=== PATIENT | female | born 1935 | race Caucasian/White ===

== ENCOUNTER 2023-10-18 13:47 | Outpatient (OUT) | payer MEDICARE, SELFPAY ==
--- NOTE | 2023-10-18 13:58 | CA_ITS ---
Patient Name: RAMY BENAVIDES MR#: [id number] : 1935 Exam Date: 10/18/2023 Ordering Doctor: LEAH SAGE ECHOCARDIOGRAM REPORT PROCEDURE: CA ECHO DOPPLER COMPLETE INDICATIONS: Diastolic heart failure COMPARISON: None. DESCRIPTION: COMPLETE ECHOCARDIOGRAM Real-time transthoracic echocardiography with 2D, M-mode, spectral and color flow Doppler performed. QUALITY: Technical quality was good. LEFT VENTRICLE: Normal chamber size. Normal wall thickness. Global left ventricular systolic function is normal. LV EF: Visual estimation of left ventricular ejection fraction is 65%. DIASTOLIC: Normal diastolic function. ATRIAL SEPTUM: LEFT ATRIUM: Mild dilatation. RIGHT ATRIUM: Mild dilatation. RIGHT VENTRICLE: Mild dilatation. Normal right ventricular systolic function. Pacer wire present. TRICUSPID VALVE: Normal mobility and thickness. No stenosis with mild regurgitation. No evidence of pulmonary hypertension. RVSP 34 mmHg MITRAL VALVE: Normal mobility and thickness. No evidence of mitral valve stenosis. There is no mitral annular calcification. Mild mitral regurgitation. AORTIC VALVE: Normal trileaflet appearance. Mildly calcified aortic valve. Normal leaflet mobility. No evidence of aortic valve stenosis. Trivial aortic regurgitation. AORTIC ROOT: Normal diameter and appearance. PULMONIC VALVE: Normal thickness and mobility. No stenosis. No regurgitation. PERICARDIUM: No evidence of pericardial effusion. IVC: Collapses with inspirations. Normal size. PLEURA: CONCLUSION: 1. Normal left ventricular size and systolic function. LVEF is 65%. 2. Mildly dilated right ventricle with normal systolic function. 3. Mild biatrial dilatation. 4. Mild tricuspid and mitral regurgitation. 5. Normal right-sided pressures. Adult Echocardiography Procedure Report Left Ventricle LVEDD (3.7 - 5.6 cm): 4.10 cm LVESD (2.2 - 4.0 cm): 2.62 cm LVIVS thickness (0.6 - 1.2 cm): 1.04 cm LVPW thickness (0.5 - 1.0 cm): 0.89 cm e': 0.10 m/s E - e': 5.22 LVOT Max Gradient: 1.91 mm[Hg] LVOT Area (cm2): 0.69 m/s Peak Velocity (LVOT): 0.69 m/s Mean Velocity (LVOT): 0.46 m/s LVOT Diameter 1.92 cm Left Ventricular Ejection Fraction: 65 % Left Atrium LA Volume Index (2D A2C): 43.50 ml/m2 Left Atrium Systolic Dimension: 3.72 cm Mitral Valve MV E to A Ratio: 0.59 Mitral Valve A-Wave Peak Velocity: 0.85 m/s Mitral Valve E-Wave Peak Velocity: 0.50 m/s Right Ventricle RV Internal Diastolic Dimension: 2.99 cm Aorta AO Root Diam: 2.98 cm Aortic Valve AoV Area (Peak Lucho): 2.46 cm2, 2.46 cm2 AoV Area (VTI): 2.13 cm2, 2.13 cm2 Peak Velocity(Antegrade Flow): 0.82 m/s Peak Gradient(Antegrade Flow): 2.67 mm[Hg] Mean Velocity(Antegrade Flow): 0.57 m/s Mean Gradient(Antegrade Flow): 1.46 mm[Hg] Velocity Time Integral: 19.41 cm Tricuspid Valve Peak Velocity (Regurgitant Flow): 2.80 m/s, 2.36 m/s Pulmonic Valve Mean Gradient: 1.85 mm[Hg] Mean Velocity: 0.64 m/s Peak Velocity: 0.90 m/s, 0.97 m/s Peak Gradient: 3.80 mm[Hg], 3.22 mm[Hg] Right Atrium Right Atrium Systolic Pressure: 45.09 ml, 45.09 ml Dictated by: Kirby Mayes M.D. on 10/18/2023 at 18:48 Approved by: Kirby Mayes M.D. on 10/18/2023 at 18:52
== END 2023-10-18 13:48 | disposition home or self-care (01) ==
LOC: CARD 13:48
PROVIDERS: PCP Family Medicine; Visit Provider Internal Medicine Cardiovascular Disease
DX: I50.33 Acute on chronic diastolic (congestive) heart failure (principal)
CPT/HCPCS: 93306

== ENCOUNTER 2024-03-09 14:12 | Outpatient (OUT) | payer MEDICARE, SELFPAY ==
--- NOTE | 2024-03-09 14:14 | US_ITS ---
[address] [address] Patient Name: RAMY BENAVIDES MRN: [id number] date: 1935 Sex: F Assigned Patient Location: Current Patient Location: Accession/Order Number: [id number] Exam Date: 03/09/2024 14:15 Report Date: 03/10/2024 07:20 At the request of: SRIKANTH PALMER Procedure: US carotid duplex BI EXAMINATION: US carotid duplex BI HISTORY: Dizziness COMPARISON: No relevant comparison available. TECHNIQUE: Duplex Doppler ultrasound analysis of carotid and vertebral arteries. . Bilateral carotid arterial duplex examination was performed using B-mode, color flow and spectral analysis. Carotid stenosis is reported according to validated velocity parameters, similar to NASCET criteria. FINDINGS: RIGHT CAROTID ARTERY : Moderate amount of irregular calcified plaque within distal CCA, bulb, proximal ICA; 61% area reduction within distal CCA. Subclavian: 131.88 cm/s / 0 cm/s CCA: Prox: 86.54 cm/s / 13.60 cm/s Mid: 78.64 cm/s / 13.60 cm/s Distal: 72.73 cm/s / 13.60 cm/s BULB: 76.22 cm/s / 8.93 cm/s ICA: Prox: 73.64 cm/s / 7.64 cm/s Mid: 72.34 cm/s / 12.81 cm/s Distal: 83.84 cm/s / 11.15 cm/s ECA: 96.74 cm/s / 6.30 cm/s VERTEBRAL: 47.89 cm/s / 4.27 cm/s ICA/CCA ratio: 1.0 LEFT CAROTID ARTERY: Mild atherosclerotic plaque within distal CCA. Subclavian: 200.1 cm/s / 0 cm/s CCA: Prox: 102.29 cm/s / 13.60 cm/s Mid: 71.33 cm/s / 10.88 cm/s Distal: 77.93 cm/s / 10.88 cm/s BULB: 51.55 cm/s / 6.48 cm/s ICA: Prox: 49.35 cm/s / 7.58 cm/s Mid: 68.02 cm/s / 13.08 cm/s Distal: 80.11 cm/s / 16.37 cm/s ECA: 78.98 cm/s / 5.38 cm/s VERTEBRAL: 46.02 cm/s / 8.68 cm/s ICA/CCA ratio: 0.8 US/US carotid duplex BI IMPRESSION: 1. Moderate atherosclerotic disease within right common carotid artery, bulb, proximal internal carotid artery (61% area reduction within the distal CCA). 2. 0-49% flow stenosis within the right and left carotid arteries. Spectral Doppler US Thresholds Stenosis (%) PSV (cm/sec) VICA/VCCA 0-49 <150 <2.5 50-69 150-225 2.5-4.0 >70 >225 >4.0 Electronically authenticated by: AMY DENNISON Date: 03/10/2024 07:20
--- OUTSIDE RECORDS SUMMARY | 2024-03-09 14:15 | XMS_ITS | CCD ---
Author Organization [facility] Care Team Providers Care Student Activities Director Name Role Phone LEAH SAGE Admitting Unavailable ALONALEAH Chiu Attending Unavailable SELF, REFERRED Referring Unavailable SELF, REFERRED Primary Care Unavailable Masroor, Sindhu Admitting Unavailable Masroor, Sindhu Attending Unavailable FURLONGSEVEN Referring Unavailable FURLONG, SEVEN Primary Care Unavailable JAY, GIO Admitting Unavailable UNKNOWN, PHYSICIAN Primary Care Unavailable MOOSE AGUILA Referring Unavailable LITTLE HILL Attending Unavailable Masroor, Sindhu Admitting Unavailable Masroor, Sindhu Attending Unavailable VITOLONGSEVEN Referring Unavailable FURLONGSEVEN Primary Care Unavailable ALONA, LEAH H Admitting Unavailable FURLONG, DR SEVEN Dent Primary Care Unavailable ALONA, LEAH H Attending Unavailable FURLONG, DR SEVEN Dent Primary Care Unavailable FURLONG, DR SEVEN Dent Consulting Unavailable FURLONG, DR SEVEN Dent Attending Unavailable FURLONG, DR SEVEN Dent Admitting Unavailable ALONA, LEAH H Attending Unavailable FURLONG, DR SEVEN Dent Primary Care Unavailable ALONA, LEAH H Admitting Unavailable ALONA, LEAH H Consulting Unavailable MASROOR, SINDHU Admitting Unavailable MASROOR, SINDHU Attending Unavailable WEST, DR ABUNDIO Cantrell Consulting Unavailable FURLONG, DR SEVEN Dent Primary Care Unavailable MASROOR, SINDHU Consulting Unavailable ALONA, LEAH H Admitting Unavailable ZIEBER, DR AMY Jacome Consulting Unavailable FURLONG, DR SEVEN Dent Primary Care Unavailable ALONA, LEAH H Attending Unavailable ALONA, LEAH H Consulting Unavailable ALONA, LEAH H Admitting Unavailable FURLONG, DR SEVEN Dent Primary Care Unavailable ALONA, LEAH H Attending Unavailable MASROOR, SINDHU Consulting Unavailable MASROOR, SINDHU Attending Unavailable FURLONG, DR SEVEN Dent Primary Care Unavailable SINDHU CAN Admitting Unavailable Furlong DO, Seven Dent Primary Care Provider POCOS, ABUNDIO Cha Attending Unavailable POCOS, ABUNDIO Cha Attending Unavailable POCOS, ABUNDIO Cha Attending Unavailable RUSHER, ERNESTINA Mccarthy Attending Unavailable RUSHER, ERNESTINA Mccarthy Referring Unavailable ALONA, LEAH Attending Unavailable ALONA, LEAH Referring Unavailable ALONA, LEAH Referring Unavailable ALONA, LEAH Referring Unavailable BARAZIANGELIA Attending Unavailable KUNSNICKIE Referring Unavailable FURLONG, SEVEN Dent Primary Care Unavailable FURLONG, SEVEN Dent Referring Unavailable FURLONG, SEVEN Dent Primary Care Unavailable FURLONG, SEVEN Dent Referring Unavailable FURLONG, SEVEN G Primary Care Unavailable KUNSNICKIE Attending Unavailable FURLONG, SEVEN G Referring Unavailable FURLONG, SEVEN G Primary Care Unavailable FURLONG, SEVEN Dent Referring Unavailable FURLONG, SEVEN G Primary Care Unavailable FURLONG, SEVEN Dent Attending Unavailable FURLONG, SEVEN G Referring Unavailable FURLONG, SEVEN G Primary Care Unavailable FURLONG, SEVEN Dent Attending Unavailable FURLONG, SEVEN Dent Referring Unavailable FURLONG, SEVEN G Primary Care Unavailable FURLONG, SEVEN Dent Attending Unavailable FURLONG, SEVEN G Referring Unavailable FURLONG, SEVEN G Primary Care Unavailable FURLONG, SEVEN G Attending Unavailable FURLONG, SEVEN G Referring Unavailable FURLONG, SEVEN G Primary Care Unavailable FURLONG, SEVEN G Attending Unavailable FURLONG, SEVEN G Referring Unavailable FURLONG, SEVEN G Primary Care Unavailable Allergies Allergy Classification Reported Allergen(s) Allergy Type Date of Onset Reaction(s) Facility (5 sources) Penicillins; Translations: [PENICILLINS] Drug allergy (disorder) 5 [facility] (18 sources) Adhesive agent; Translations: [ADHESIVE] Propensity to adverse reactions to drug 2 [facility] (15 sources) Penicillins Propensity to adverse reactions to drug 8 Rash, Anaphylaxis [facility] (17 sources) Other; Translations: [OTHER] Propensity to adverse reactions 2 [facility] Work Phone: Medications Current Medications Medication Drug Class(es) Dates Sig (Normalized) Sig (Original) amLODIPine 10 mg oral tablet (16 sources) Dihydropyridine Calcium Channel Janna Start: 01-27-2024 amLODIPine (NORVASC) 10 mg tablet Indications: Primary hypertension TAKE 1 TABLET IN THE MORNING 90 tablet 1 01/27/2024 Active Start: 02-13-2023 End: 05-10-2023 take 1 tablet by mouth in the morning amLODIPine (NORVASC) 10 mg tablet Indications: Primary hypertension Take 1 tablet (10 mg total) by mouth in the morning. 90 tablet 1 05/10/2023 Active aspirin 81 mg delayed release oral tablet (15 sources) Platelet Aggregation Inhibitor, Nonsteroidal Anti-inflammatory Drug aspirin 81 mg 1 t ablet Active atorvastatin 80 mg oral tablet (15 sources) HMG-CoA Reductase Inhibitor Start: 08-15-2023 atorvastatin (LIPITOR) 80 mg tablet take 1 tablet daily 90 tablet 3 08/15/2023 Active Start: 07-23-2022 atorvastatin ( LIPITOR) 80 mg tablet TAKE 1 TABLET DAILY 90 tablet 3 07/23/2022 Active cholecalciferol, vitamin D3, (VITAMIN D3 ORAL) (15 sources) take 1 capsule by mouth once daily cholecalciferol, vitamin D3, (VITAMIN D3 ORAL) Take 1 capsule by mouth daily. Active take 1 capsule by mouth once anthony ly cholecalciferol, vitamin D3, (VITAMIN D3 ORAL) Take 1 capsule by mouth daily. 0 Active cyanocobalamin, vitamin B-12 , (VITAMIN B-12 ORAL) (15 sources) take 1 tablet by graeme th in the morning cyanocobalamin, vitamin B-12, (VITAMIN B-12 ORAL) Take 1 tablet by mouth in the morning. Active take 1 tablet by mouth in the mo rning cyanocobalamin, vitamin B-12, (VITAMIN B- 12 ORAL) Take 1 tablet by mouth in the morning. 0 Active famotidine 10 mg oral tablet (4 sources) Histamine-2 Receptor Antagonist take 1 tablet by mouth in the morning, then take 1 tablet by mouth at bedtime famotidine (PEPCID) 10 mg tablet Take 1 tablet (10 mg total) by mouth in the morning and 1 tablet (10 mg total) before bedtime. Active fluticasone propionate 0.05 mg/actuat metered dose nasal spray (15 sources) Corticosteroid take 2 spray(s) nasal route in the morning fluticasone propionate (FLONASE) 50 mcg/actuation nasal spray Administer 2 sprays into each nostril in the morning. Active furosemide 40 mg oral tablet (15 sources) Loop Diuretic Start: 09-11-19 furosemide (LASIX) 40 mg tablet take 1 tablet daily 90 tablet 1 09/11/2023 Active Start: 03-09-2023 take 1 tablet by graeme th once daily furosemide (LASIX) 40 mg tablet Take 1 tablet (40 mg total) by mouth daily. 90 tablet 1 03/09/2023 Active levothyroxine sodium 0.075 mg oral tablet (19 sources) l-Thyroxine Start: 02-08-2024 take 1 tablet by mouth in the morning levothyroxine (SYNTHROID, LEVOTHROID) 75 MCG tablet Take 1 tablet (75 mcg total) by mouth in the morning. 90 tablet 2 02/08/2024 Active Start: 11-29-2023 End: 02-08-2024 take 1 tablet by mouth in the morning levothyroxine (SYNTHROID, LEVOTHROID) 88 MCG tablet Indications: Acquired hypothyroidism Take 1 tablet (88 mcg total) by mouth in the morning. 30 tablet 1 11/29/2023 02/08/2024 Discontinued (Dose adjustment) Start: 02-02-2023 End: 07-26-2023 take 1 tablet by mouth in the morning levothyroxine (SYNTHROID, LEVOTHROID) 88 MCG tablet Indications: Acquired hypothyroidism take 1 tablet by mouth in the morning 90 tablet 1 07/26/2023 Active liothyronine sodium 0.005 mg oral tablet (9 sources) l-Triiodothyronine Start: 09-05-2023 liothyronin e (CYTOMEL) 5 MCG tablet take 1 tablet daily 90 tablet 2 09/05/2023 Active Start: 02-06-2023 End: 07-18-2023 liothyronine (CYTOMEL) 5 MCG tablet TAKE 1 TABLET DAILY 90 tablet 2 02/06/2023 07/18/2023 Discontinued (Discontinued by another clinician) magnesium oxide 400 mg oral tablet (15 sources) Start: 01-17-2022 take 1 tablet by mouth in the morning, then take 1 tablet by mouth at bedtime magnesium oxide (MAGOX) 400 mg tablet Take 1 tablet (400 mg total) by mouth in the morning and 1 tablet (400 mg total) before bedtime. 180 tablet 1 01/17/2022 Active meclizine hydrochloride 12.5 mg oral tablet (1 source) Antiemetic Start: 03-05-2024 take 1 tablet by mouth three times daily as needed for dizziness meclizine (ANTIVERT) 12.5 mg tablet Take 1 tablet (12.5 mg total) by mouth 3 (three) times a day as needed for dizziness. 30 tablet 1 03/05/2024 Active 24 hr metoprolol succinate 50 mg extended release oral tablet (15 sources) beta-Adrenergic Janna Start: 08-15-2023 metoprolol succinate XL (TOPROL XL) 50 mg 24 hr tablet take 1 tablet daily 90 tablet 3 08/15/2023 Active Start: 11-02-2022 metoprolol suc cinate XL (TOPROL XL) 50 mg 24 hr tablet TAKE 1 TABLET DAILY 90 tablet 3 11/02/2022 Active omeprazole 20 mg delayed release oral capsule (16 sources) Proton Pump Inhibitor Start: 02-07-2024 take 1 capsule by mouth once daily as needed for gastroesophageal reflux disease omeprazole (PriLOSEC) 20 mg capsule Take 1 capsule (20 mg total) by mouth daily as needed (heartburn). 02/07/2024 Active End: 02-07-2024 take 1 capsule by mouth every other day omeprazole (PriLOSEC) 20 mg capsule Take 1 capsule (20 mg total) by mouth every other day. 02/07/2024 Discontinued (Therapy completed) take 1 capsule by mo uth in the morning omeprazole (PriLOSEC) 20 mg capsule Take 1 capsule (20 mg total) by mouth in the morning. 0 Active microencapsulated potassium chloride 20 meq extended release oral tablet (15 sources) Start: 10-11-2023 KLOR-CON M20 2 0 mEq CR tablet take 1 tablet daily 90 tablet 1 10/11/2023 Active Start: 04-21-2023 potassium chlo ride (KLOR-CON M20) 20 MEQ CR tablet TAKE 1 TABLET DAILY 90 tablet 1 04/21/2023 Active pyridoxine HCl, vitamin B6, (VITAMIN B-6 ORAL) (15 sources) take 1 tablet by graeme th in the morning pyridoxine HCl, vitamin B6, (VITAMIN B-6 ORAL) Take 1 tablet by mouth in the morning. Active take 1 tablet by mouth in the mo rning pyridoxine HCl, vitamin B6, (VITAMIN B-6 ORAL) Take 1 tablet by mouth in the morning. 0 Active traZODone hydrochloride 50 mg oral tablet (16 sources) Serotonin Reuptake Inhibitor Start: 09-13-2023 traZODone (DESYREL) 50 mg tablet TAKE 1 TABLET NIGHTLY 90 tablet 1 09/13/2023 Active Start: 12-05-2022 End: 05-03-2023 traZODone (DESYREL) 50 mg ta blet TAKE 1 TABLET NIGHTLY 90 tablet 1 05/03/2023 Active 100 ml zoledronic acid 0.05 mg/ml injection (15 sources) Bisphosphonate Start: 03-04-2022 zoledronic aci d (RECLAST) IVPB 5 mg/100 mL in mannitol 5% and water (0.05 mg/mL premix) zolpidem tartrate 10 mg oral tablet (18 sources) gamma-Aminobutyric Acid-ergic Agonist Start: 01-02-2024 zolpidem (AMBIEN) 10 mg tablet Indications: Other insomnia TAKE 1 TABLET NIGHTLY NEEDED FOR SLEEP 30 tablet 1 01/02/2024 Active Start: 05-30-2023 End: 08-08-2023 take 1 tablet by mouth once daily as needed for sleep zolpidem (AMBIEN) 10 mg tablet Indications: Other insomnia Take 1 tablet (10 mg total) by mouth nightly as needed for sleep. 30 tablet 2 08/08/2023 Active Start: 04-03-2023 End: 05-21-2023 zolpidem (AMBIEN) 10 mg tabl et Indications: Persistent insomnia TAKE 1 TABLET NIGHTLY NEEDED FOR SLEEP 30 tablet 1 05/10/2023 05/21/2023 Discontinued (Formulary change) Completed/Discontinued Medications Medication Drug Class(es) Dates Sig (Normalized) Sig (Original) acetaminophen 500 mg oral tablet (4 sources) End: 07-17-2023 take 2 tablets by mouth every eight hours as needed acetaminophen (TYLENOL EXTRA STRENGTH) 500 mg tablet Take 2 tablets (1,000 mg total) by mouth every 8 (eight) hours as needed. 0 07/17/2023 Discontinued (Therapy completed) diclofenac sodium 0.01 mg/mg topical gel (4 sources) Nonsteroidal Anti-inflammatory Drug Start: 11-16-2022 End: 07-17-2023 diclofenac sodium (VOLTAREN) 1 % gel Apply 2 g topically in the morning and 2 g at noon and 2 g in the evening and 2 g before bedtime. 100 g 1 11/16/2022 07/17/2023 Discontinued (Therapy completed) doxepin 6 mg oral tablet (2 sources) Tricyclic Antidepressant Start: 05-21-2023 End: 07-17-2023 take 1 tablet by mouth once daily doxepin 6 mg tablet Indications: Persistent insomnia Take 1 tablet by mouth nightly. 30 tablet 1 05/21/2023 07/17/2023 Discontinued (Therapy completed) krill oil (4 sources) End: 07-17-2023 take 1 capsule by mouth in the morning hvhcu-fh-6-dha-epa -phospho-ast (KRILL OIL) [id number] mg capsule Take 1 capsule by mouth in the morning. 0 07/17/2023 Discontinued (Therapy completed) take 1 capsule by [facility] in the morning vtxrr-tb-2-oxi-wwz-lhkbxgc-ast (KRILL OI L) [id number] mg capsule Take 1 capsule by mouth in the morning. 0 Active linaclotide 0.072 mg oral capsule (3 sources) Guanylate Cyclase-C Agonist Start: 07-26-2023 End: 02-07-2024 take 1 capsule by mouth once daily before breakfast linaCLOtide (LINZESS) 72 mcg capsule Take 1 capsule (72 mcg total) by mouth every morning before breakfast. 90 capsule 1 07/26/2023 02/07/2024 Discontinued (Cost of medication) Problems Active Problems Problem Classification Problem Date Documented Date Episodic/Chronic Anxiety disorders (15 sources) Anxiety; Translations: [Anxiety disorder, unspecified] Onset: 01-11-2022 01-11-2022 Chronic Chronic kidney disease (15 sources) Chronic kidney disease stage 3; Translations: [Stage 3 chronic kidney disease] Onset: 05-19-2016 Resolved: 01-17-2022 01-17-2022 Chronic Chronic kidney disease (2 sources) Chronic kidney disease; Translations: [Chronic kidney disease, stage 3a] Onset: 01-30-2023 Conditions associated with dizziness or vertigo (4 sources) Dizziness; Translations: [Dizziness and giddiness] Onset: 03-05-2024 03-05-2024 Episodic Congestive heart failure; nonhypertensive (2 sources) Acute on chronic diastolic (congestive) heart failure; Translations: [Acute on chronic diastolic (congestive) heart failure] Onset: 09-26-2023 Chronic Coronary atherosclerosis and other heart disease (15 sources) Coronary arteriosclerosis; Translations: [Atherosclerotic heart disease of [place] coronary artery without angina pectoris] Onset: 08-12-2021 01-17-2022 Chronic Disorders of lipid metabolism (18 sources) Hyperlipidemia, unspecified; Translations: [Hypercholesterolemia] Onset: 07-30-2020 01-17-2022 Chronic Diverticulosis and diverticulitis (15 sources) Diverticular disease; Translations: [Diverticulosis of intestine, part unspecified, without perforation or abscess without bleeding] Onset: 01-11-2022 01-11-2022 Chronic Esophageal disorders (17 sources) Gastroesophageal reflux disease; Translations: [Gastro-esophageal reflux disease without esophagitis] Onset: 01-11-2022 01-11-2022 Chronic Essential hypertension (20 sources) Essential (primary) hypertension; Translations: [Essential hypertension] Onset: 07-30-2020 Chronic Hypertension with complications and secondary hypertension (20 sources) Renovascular hypertension; 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] Onset: 07-12-2021 01-17-2022 Chronic Osteoarthritis (20 sources) Osteoarthritis of left knee joint; Translations: [Unilateral primary osteoarthritis, left knee] Onset: 02-14-2019 04-26-2023 Chronic Other connective tissue disease (15 sources) Artificial knee joint present; Translations: [Presence of unspecified artificial knee joint] Onset: 01-17-2022 01-17-2022 Chronic Other ear and sense organ disorders (15 sources) Hearing loss; Translations: [Unspecified hearing loss, unspecified ear] Onset: 10-15-2019 01-11-2022 Chronic Residual codes; unclassified (15 sources) Obstructive sleep apnea syndrome; Translations: [Obstructive sleep apnea (adult) (pediatric)] Onset: 01-11-2022 01-11-2022 Chronic Residual codes; unclassified (2 sources) Insomnia; Translations: [Other insomnia] 07-19-2023 Chronic Residual codes; unclassified (2 sources) Other insomnia; Translations: [Other insomnia] Onset: 08-08-2023 Chronic Screening and history of mental health and substance abuse codes (2 sources) Patient encounter status; Translations: [Encounter for screening for depression] 07-27-2023 Episodic Spondylosis; intervertebral disc disorders; other back problems (15 sources) Degeneration of lumbar intervertebral disc; Translations: [Other intervertebral disc degeneration, lumbar region] Onset: 01-11-2022 01-17-2022 Chronic Thyroid disorders (20 sources) Hypothyroidism; Translations: [Hypothyroidism, unspecified] Onset: 07-30-2020 01-17-2022 Chronic Unclassified (15 sources) Mass of body structure; Translations: [Mass] Onset: 12-09-2021 07-19-2022 Unclassified (1 source) Cold Like Symptoms Onset: 02-07-2024 Unclassified (1 source) medicare annual wellness Onset: 07-25-2023 Past or Other Problems Problem Classification Problem Date Documented Date Episodic/Chronic Complication of device; implant or graft (4 sources) Displacement of cardiac electrode, initial encounter; Translations: [DISPLACEMENT CARD ELECTRODE INITIAL] Onset: 09-21-2021 Episodic Conduction disorders (20 sources) Atrioventricular block, complete; Translations: [Complete atrioventricular block] Onset: 09-08-2022 Resolved: 04-26-2023 Chronic Diabetes mellitus without complication (20 sources) Impaired glucose tolerance; Translations: [Impaired glucose tolerance (oral)] Onset: 01-11-2022 01-11-2022 Episodic Fluid and electrolyte disorders (15 sources) Hypokalemia; Translations: [Hypokalemia] Onset: 11-05-2015 01-11-2022 Episodic Mood disorders (15 sources) Mood disorders Onset: 04-26-2023 Resolved: 03-05-2024 04-26-2023 Nonspecific chest pain (1 source) Chest pain, unspecified; Translations: [CHEST PAIN UNSPECIFIED] Onset: 12-22-2021 Episodic Other aftercare (2 sources) Encounter for therapeutic drug level monitoring; Translations: [Encounter for therapeutic drug level monitoring] Onset: 08-08-2023 Episodic Other bone disease and musculoskeletal deformities (15 sources) Osteopenia; Translations: [Other specified disorders of bone density and structure, unspecified site] Onset: 06-23-2017 01-11-2022 Episodic Other circulatory disease (15 sources) History of heart block; Translations: [Personal history of other diseases of the circulatory system] Onset: 01-17-2022 01-17-2022 Episodic Other ear and sense organ disorders (15 sources) Tinnitus; Translations: [Tinnitus, unspecified ear] Onset: 10-27-2022 10-27-2022 Episodic Other fractures (15 sources) Closed fracture thoracic vertebra, wedge; Translations: [Wedge compression fracture of unspecified thoracic vertebra, initial encounter for closed fracture] Onset: 01-31-2020 01-11-2022 Episodic Other hematologic conditions (15 sources) Erythrocytosis; Translations: [Secondary polycythemia] Onset: 09-12-2019 01-11-2022 Episodic Other lower respiratory disease (4 sources) Dyspnea, unspecified; Translations: [DYSPNEA UNSPECIFIED] Onset: 11-19-2021 Episodic Other nervous system disorders (1 source) Other acute postprocedural pain; Translations: [OTHER ACUTE POSTPROCEDURAL PAIN] Onset: 12-22-2021 Episodic Other non-epithelial cancer of skin (15 sources) Basal cell carcinoma of skin; Translations: [Basal cell carcinoma of skin, unspecified] Onset: 06-22-2017 01-11-2022 Episodic Other non-traumatic joint disorders (15 sources) Pain in left knee; Translations: [Pain in joint, lower leg] Onset: 02-09-2023 04-26-2023 Episodic Other nutritional; endocrine; and metabolic disorders (15 sources) Obesity; Translations: [Obesity, unspecified] Onset: 01-11-2022 Resolved: 07-19-2022 07-19-2022 Chronic Other nutritional; endocrine; and metabolic disorders (17 sources) Overweight; Translations: [Overweight] Onset: 01-30-2023 01-30-2023 Episodic Other nutritional; endocrine; and metabolic disorders (1 source) Overweight; Translations: [Overweight] Onset: 01-30-2023 Episodic Other screening for suspected conditions (not mental disorders or infectious disease) (1 source) Other abnormal and inconclusive findings on diagnostic imaging of breast; Translations: [OTH ABN INCONCL FIND DX IMAG BREAST] Onset: 12-22-2021 Episodic Other skin disorders (4 sources) Localized swelling, mass and lump, trunk; Translations: [LOCALIZD SWELLING MASS AND LUMP TRUNK] Onset: 12-15-2021 Episodic Other upper respiratory infections (19 sources) Nasal discharge; Translations: [Postnasal drip] Onset: 10-27-2022 10-27-2022 Episodic Residual codes; unclassified (19 sources) Persistent insomnia; Translations: [Insomnia, unspecified] Onset: 01-11-2022 01-11-2022 Episodic Residual codes; unclassified (1 source) Insomnia, unspecified; Translations: [Insomnia, unspecified] Onset: 01-11-2022 Episodic Results Test Name Value Interpretation Reference Range Facility BASIC METABOLIC PANLon 02-06 Anion gap [Moles/Vol] 13 mmol/L Normal 5-15 [facility] Comment on above: Performed By: #### C BC, BMP, 69977-3, 61283-7, 2776-, 3084-1, THYR, HA1C, 2731-8, 81341-7 #### [facility] ([id number]) [address] [place] [address] Calcium [Mass/Vol] 10.0 mg/dL Normal 8.5-10.5 [facility] Comment on above: Performed By: #### C BC, BMP, 29101-0, 46432-8, 2776-, 3084-1, THYR, HA1C, 2731-8, 45353-6 #### [facility] ([id number]) [address], [address] [place] [address] Chloride [Moles/Vol] 97 mmol/L Low 98-109 [facility] Comment on above: Performed By: #### C BC, BMP, 45976-7, 19650-2, 7-, 3084-1, THYR, HA1C, 2731-8, 17858-6 #### [facility] ([id number]) [address], [address] [place] [address] CO2 [Moles/Vol] 30 mmol/L Normal 22-32 [facility] Comment on above: Performed By: #### C BC, BMP, 49118-9, 36153-0, 2777-1, 3084-1, THYR, HA1C, 2731-8, 04783-7 #### [facility] ([id number]) [address], [address] [place] [address] Creatinine [Mass/Vol] 0.96 mg/dL Normal 0.40-1.00 [facility] Comment on above: Result Comment: METH OD TRACEABLE TO IDMS STANDARD Performed By: #### C BC, BMP, 11480-7, 33310-2, 2776-1, 3084-1, THYR, HA1C, 2731-8, 12683-3 #### [facility] ([id number]) [address] [place] [address] GFR/1.73 sq M.predicted [place] g non-blacks MDRD (S/P/Bld) [Vol rate/Area] 58 mL/min/{1.73_m2} Low >59 [facility] Comment on above: Result Comment: Reported eGFR is based on the CKD-EPI 2020 equation that does not use a race coefficient. Performed By: #### C BC, BMP, 22250-6, 95120-8, 2776-, 3084-1, THYR, HA1C, 2731-8, 95306-6 #### [facility] ([id number]) [address] [place] [address] Glucose [Mass/Vol] 111 mg/dL High 65-99 [facility] Comment on above: Performed By: #### C BC, BMP, 47418-5, 24005-3, 2776-1, 3084-1, THYR, HA1C, 2731-8, 20544-8 #### [facility] ([id number]) [address] [place] [address] Potassium [Moles/Vol] 3.8 mmol/L Normal 3.5-5.0 [facility] Comment on above: Performed By: #### C BC, BMP, 07419-6, 72845-5, 2777-1, 3084-1, THYR, HA1C, 2731-8, 03322-0 #### [facility] ([id number]) [address], [address] [place] [address] Sodium [Moles/Vol] 140 mmol/L Normal 134-146 [facility] Comment on above: Performed By: #### C BC, BMP, 91985-6, 75691-7, 2777-1, 3084-1, THYR, HA1C, 2731-8, 99307-9 #### [facility] ([id number]) [address] [place] [address] Urea nitrogen [Mass/Vol] 20 mg/dL Normal 5-27 [facility] Comment on above: Performed By: #### C BC, BMP, 70968-0, 60361-6, 7-1, 3084-1, THYR, HA1C, 2731-8, 22113-9 #### [facility] ([id number]) [address] [place] [address] COMPLETE BLOOD COUNTon 02-06 Erythrocyte distribution width (RBC) [Ratio] 14.1 % Normal 11.5-15.0 [facility] Comment on above: Performed By: #### C BC, BMP, 90851-6, 89779-4, 7-1, 3084-1, THYR, HA1C, 2731-8, 99608-3 #### [facility] ([id number]) [address] [place] [address] Hematocrit (Bld) [Volume fraction] 43.6 % Normal 35-47 [facility] Comment on above: Performed By: #### C BC, BMP, 40082-4, 03808-0, 2777-1, 3084-1, THYR, HA1C, 2731-8, 39383-1 #### [facility] ([id number]) [address] [place] [address] Hemoglobin (Bld) [Mass/Vol] 14.9 g/dL Normal 11.7-15. 5 [facility] Comment on above: Performed By: #### C BC, BMP, 42438-4, 61418-8, 7-1, 3084-1, THYR, HA1C, 2731-8, 52557-6 #### [facility] ([id number]) [address] [place] [address] MCH (RBC) [Entitic mass] 29.6 pg Normal 27-34 [facility] Comment on above: Performed By: #### C BC, BMP, 82325-4, 25667-2, 7-1, 3084-1, THYR, HA1C, 2731-8, 93127-1 #### [facility] ([id number]) [address] [place] [address] MCHC (RBC) [Mass/Vol] 34.2 g/dL Normal 32-36 [facility] Comment on above: Performed By: #### C BC, BMP, 57876-4, 34394-4, 7-, 3084-1, THYR, HA1C, 2731-8, 58800-7 #### [facility] ([id number]) [address] [place] [address] MCV (RBC) [Entitic vol] 87 fL Normal 80-100 [facility] Comment on above: Performed By: #### C BC, BMP, 37907-4, 30885-1, 2777-1, 3084-1, THYR, HA1C, 2731-8, 51472-5 #### [facility] ([id number]) [address] [place] [address] Platelet mean volume (Bld) [Entitic vol] 10.0 fL Normal 7-12 [facility] Comment on above: Performed By: #### C BC, BMP, 95990-5, 50214-6, 2777-1, 3084-1, THYR, HA1C, 2731-8, 29336-3 #### [facility] ([id number]) [address] [address] [place] [address] Platelets (Bld) [#/Vol] 307 10*3/uL Normal 150-450 [facility] Comment on above: Performed By: #### C BC, BMP, 05323-3, 44508-3, 2777-1, 3084-1, THYR, HA1C, 2731-8, 93055-0 #### [facility] ([id number]) [address] [address] [place] [address] RBC COUNT 5.04 X10E12/L Normal 3.80-5.20 [facility] Comment on above: Performed By: #### C BC, BMP, 37794-2, 28070-8, 2777-1, 3084-1, THYR, HA1C, 2731-8, 43064-2 #### [facility] ([id number]) [address] [address] [place] [address] WBC (Bld) [#/Vol] 9.2 10*3/uL Normal 4.0-11.0 [facility] Comment on above: Performed By: #### C BC, BMP, 31177-0, 64906-3, 7-1, 3084-1, THYR, HA1C, 2731-8, 64395-1 #### [facility] ([id number]) [address] [address] [place] [address] HGB A1C (GLYCO-HGB)on 2023 Glucose [Mass/Vol] 114 mg/dL Normal [facility] Comment on above: Performed By: #### B MP, THYR #### [facility] ([id number]) [address] [address] [place] [address] HbA1c (Bld) [Mass fraction] 5.6 % Normal 4.4-5.6 [facility] Comment on above: Result Comment: NOTE ADA Guidelines Result HgbA1c Normal : less than 5.7 % Prediabetes : 5.7 % to 6.4 % Diabetes : > 6.4 % Use with caution in patients with abnormal hemoglobin variants as the half-life of red blood cells and in vivo glycation rates are affected. Performed By: #### Josh MP, THYR #### [facility] ([id number]) [address] [place] [address] Lipid 1996 panelon 4 Cholesterol [Mass/Vol] 132 mg/dL Low 150-200 [facility] Comment on above: Performed By: #### C BC, BMP, 10291-9, 08171-0, 7-1, 3084-1, THYR, HA1C, 2731-8, 79874-1 #### [facility] ([id number]) [address] [place] [address] Cholesterol in HDL [Mass/Vol] 57 mg/dL Normal >39 [facility] Comment on above: Result Comment: HDL <40 mg/dL - High Risk HDL > or = 40mg/dL- Desirable HDL >60 mg/dL - Negative Risk Performed By: #### C BC, BMP, 11998-5, 85670-6, 2777-1, 3084-1, THYR, HA1C, 2731-8, 48817-1 #### [facility] ([id number]) [address] [place] [address] Cholesterol in LDL [Mass/Vol] 60 mg/dL Normal <130 [facility] Comment on above: Result Comment: LDL <100 mg/dL - Desirable LDL >160 mg/dL - High Risk Performed By: #### C BC, BMP, 86262-8, 60673-9, 2777-1, 3084-1, THYR, HA1C, 2731-8, 28085-5 #### [facility] ([id number]) [address] [place] [address] Cholesterol in VLDL [Mass/Vol] 15 mg/dL Normal 0-30 [facility] Comment on above: Performed By: #### C BC, BMP, 40373-5, 77245-8, 2777-1, 3084-1, THYR, HA1C, 2731-8, 87772-4 #### [facility] ([id number]) [address] [place] [address] CHOLESTEROL:HDL 2.3 Normal 1.0-5.0 [facility] Comment on above: Performed By: #### C BC, BMP, 98687-6, 82069-4, 2777-1, 3084-1, THYR, HA1C, 2731-8, 94685-9 #### [facility] ([id number]) [address] [place] [address] Triglyceride [Mass/Vol] 74 mg/dL Normal 27-150 [facility] Comment on above: Performed By: #### C BC, BMP, 98593-0, 50414-0, 2777-1, 3084-1, THYR, HA1C, 2731-8, 36305-7 #### [facility] ([id number]) [address] [place] [address] MAGNESIUMon 02-07-2024 Magnesium [Mass/Vol] 2.3 mg/dL Normal 1.8-2.6 [facility] Comment on above: Performed By: #### C BC, BMP, 78279-7, 09245-0, 7-1, 3084-1, THYR, HA1C, 2730-8, 67108-4 #### [facility] ([id number]) [address] [place] [address] PHOSPHORUSon 02-07-2024 Phosphate [Mass/Vol] 4.4 mg/dL Normal 2.4-4.9 [facility] Comment on above: Performed By: #### C BC, BMP, 36207-8, 39971-7, 2776-, 308-1, THYR, HA1C, 2730-8, 68968-9 #### [facility] ([id number]) [address] [facility], [address] [place] [address] POCT Influenza A/Influenza B /SARS-COV-2 Veritoron 02-07-2024 External Poct Influenza A Antigen Negative [facility] External Poct Influenza B Antigen Negative [facility] SARS-CoV-2 (COVID-19) Ag IA.rapid Ql (Resp) Negative [facility] Parathyrin.intact [Mass/Vol] on 02-07-2024 PTH INTACT 37 pg/mL Normal 12-88 [facility] Comment on above: Performed By: #### B MP, THYR #### [facility] ([id number]) [address] [facility] [facility], [address] [place] [address] THYROID PROFILEon 02-07-2024 Free T4 [Mass/Vol] 1.85 ng/dL High 0.61-1.60 [facility] Comment on above: Performed By: #### C BC, BMP, 47242-5, 77857-2, 2776-1, 308-1, THYR, HA1C, 2730-8, 65643-9 #### [facility] ([id number]) [address], [address] [place] [address] TSH 0.26 uIU/mL Low 0.49-4.67 [facility] Comment on above: Performed By: #### C BC, BMP, 22073-3, 15787-7, 2777-1, 3084-1, THYR, HA1C, 2731-8, 71497-7 #### [facility] ([id number]) [address], [address] [place] [address] URIC ACIDon 02-07-2024 Urate [Mass/Vol] 5.6 mg/dL Normal 2.6-7.2 [facility] Comment on above: Performed By: #### C BC, BMP, 99363-8, 98511-3, 2777-1, 3084-1, THYR, HA1C, 2731-8, 43138-3 #### [facility] ([id number]) [address] [place] [address] Vitamin D+Metabolites [Mass/ Vol]on 02-07-2024 VITAMIN D 25 HYD TOT >120.0 High 30-100 [facility] Comment on above: Result Comment: Vitamin D status 25 [place] Vitamin D Deficiency <20 ng/mL Insufficiency 20-29 ng/mL Sufficiency 30-100 ng/mL Toxicity >100 ng/mL NOTE: A pediatric reference range has not been established by the media services coordinator of this kit. The [employer] recommends a Vitamin D level of = or >20ng/mL in infants and children. Performed By: #### B MP, THYR #### [facility] ([id number]) [address] [facility], [address] [place] [address] Office Visiton 09-26-2023 Follow-up visit [id number] Ramy Madrigal 1935 F Date Provider Department Center 09/26/2023 LEAH BADILLO CA[facility] Family History Problem Relation Age of Onset Diabetes Sister Family Status - Relation Status Age at Sister Level of Service:12208 IN OFFICE/OUTPATIENT ESTABLISHED LOW MDM 20 MIN Normal [facility] Drug Screen, Urineon 024 Amphetamines Screen method >1000 ng/mL Ql (U) Negative Negative^N [facility] Comment on above: AMPH/METH screening cut off = 1000 ng/mL Barbiturates Screen Ql (U) Negative N egative^N [facility] Comment on above: Barbiturates screeni ng cut off value = 200 ng/mL Benzodiazepines Ql (U) Negative Negat lucia^[facility] Comment on above: Benzodiazepines scre ening cut off value = 200 ng/mL Cocaine Ql (U) Negative Negative^N [facility] Comment on above: Cocaine screening cu t off value = 300 ng/mL Methadone Screen Ql (U) Negative Nega tive^N [facility] Comment on above: Methadone screening cut off value = 300 ng/mL. Methylenedioxymethamphetamin e Screen Ql (U) Negative Negative^N [facility] Comment on above: Ecstasy screening cu t off value = 500 ng/mL This report is intended for use in clinical monitoring or management of patients. Opiates Screen Ql (U) Negative Negati ve^N [facility] Comment on above: Opiates screening cu t off value = 300 ng/mL NOTE: This test is used for the detection of codeine, hydrocodone (>1000 ng/mL), morphine and hydromorphone (>900 ng/mL) in urine. oxyCODONE Ql (U) Negative Negative^N [facility] Comment on above: Oxycodone screening cut off value = 300 ng/mL NOTE: This test is used for the detection of oxycodone and oxymorphone in urine. Phencyclidine Screen method >25 ng/mL Ql (U) Negative Negative^N [facility] Comment on above: Phencyclidine screen ing cut off value = 25 ng/mL Tetrahydrocannabinol Screen method >50 ng/mL Ql (U) Negative Negative^[facility] Comment on above: Cannabinoids/THC scr eening cut off value = 50 ng/mL [facility] DRUG SCREEN, URINEon 024 AMPHETAMINE/METHAMP Negative Normal NEG [facility] Comment on above: Result Comment: AMPH /METH screening cut off = 1000 ng/mL Performed By: #### D MONTEMAYOR #### [facility] ([id number]) [address] [place] [address] BARBITURATES Negative Normal NEG [facility] Comment on above: Result Comment: Meeta iturates screening cut off value = 200 ng/mL Performed By: #### D MONTEMAYOR #### [facility] ([id number]) [address] [place] [address] BENZODIAZEPINES Negative Normal NEG [facility] Comment on above: Result Comment: Jalen odiazepines screening cut off value = 200 ng/mL Performed By: #### D MONTEMAYOR #### [facility] ([id number]) [address] [place] [address] CANNABINOIDS Negative Normal NEG [facility] Comment on above: Result Comment: Nadira abinoids/THC screening cut off value = 50 ng/mL Performed By: #### D MONTEMAYOR #### [facility] ([id number]) [address] [place] [address] COCAINE METABOLITE Negative Normal NEG [facility] Comment on above: Result Comment: Coca ine screening cut off value = 300 ng/mL Performed By: #### D MONTEMAYOR #### [facility] ([id number]) [address] [place] [address] ECSTASY Negative Normal NEG [facility] Comment on above: Result Comment: Ecst asy screening cut off value = 500 ng/mL This report is intended for use in clinical monitoring or management of patients. Performed By: #### D MONTEMAYOR #### [facility] ([id number]) [address] [place] [address] METHADONE Negative Normal NEG [facility] Comment on above: Result Comment: Meth adone screening cut off value = 300 ng/mL. Performed By: #### D MONTEMAYOR #### [facility] ([id number]) [address] [place] [address] OPIATES Negative Normal NEG [facility] Comment on above: Result Comment: Opia marie screening cut off value = 300 ng/mL NOTE: This test is used for the detection of codeine, hydrocodone (>1000 ng/mL), morphine and hydromorphone (>900 ng/mL) in urine. Performed By: #### D MONTEMAYOR #### [facility] ([id number]) [address] [place] [address] OXYCODONE Negative Normal NEG [facility] Comment on above: Result Comment: Oxyc odone screening cut off value = 300 ng/mL NOTE: This test is used for the detection of oxycodone and oxymorphone in urine. Performed By: #### D MONTEMAYOR #### [facility] ([id number]) [address] [place] [address] PHENCYCLIDINE Negative Normal NEG [facility] Comment on above: Result Comment: Phen cyclidine screening cut off value = 25 ng/mL Performed By: #### D MONTEMAYOR #### [facility] ([id number]) [address] [place] [address] BASIC METABOLIC PANLon 07-16 Anion gap [Moles/Vol] 12 mmol/L Normal 5-15 Pro [facility] Comment on above: Performed By: #### B JOSETTE THYR #### [facility] ([id number]) [address] [place] [address] Calcium [Mass/Vol] 9.8 mg/dL Normal 8.5-10.5 [facility] Comment on above: Performed By: #### B JOSETTE, THYR #### [facility] ([id number]) [address] [place] [address] Chloride [Moles/Vol] 99 mmol/L Normal 98-109 [facility] Comment on above: Performed By: #### B JOSETTE, THYR #### [facility] ([id number]) [address] [place] [address] CO2 [Moles/Vol] 29 mmol/L Normal 22-32 [facility] Comment on above: Performed By: #### B JOSETTE, THYR #### [facility] ([id number]) [address] [place] [address] Creatinine [Mass/Vol] 0.87 mg/dL Normal 0.40-1.00 [facility] Comment on above: Result Comment: METH OD TRACEABLE TO IDMS STANDARD Performed By: #### B JOSETTE, THYR #### [facility] ([id number]) [address] [facility] [address] [place] [address] GFR/1.73 sq M.predicted chadwick g non-blacks MDRD (S/P/Bld) [Vol rate/Area] 65 mL/min/{1.73_m2} Normal >59 [facility] Comment on above: Result Comment: Reported eGFR is based on the CKD-EPI 2020 equation that does not use a race coefficient. Performed By: #### Josh FINCH, THYR #### [facility] ([id number]) [address] [place] [address] Glucose [Mass/Vol] 110 mg/dL High 65-99 [facility] Comment on above: Performed By: #### B JOSETTE, THYR #### [facility] ([id number]) [address] [address] [place] [address] Potassium [Moles/Vol] 4.0 mmol/L Normal 3.5-5.0 [facility] Comment on above: Performed By: #### B JOSETTE, THYR #### [facility] ([id number]) [address] [place] [address] Sodium [Moles/Vol] 140 mmol/L Normal 134-146 [facility] Comment on above: Performed By: #### B JOSETTE, THYR #### [facility] ([id number]) [address] [place] [address] Urea nitrogen [Mass/Vol] 21 mg/dL Normal 5-27 [facility] Comment on above: Performed By: #### B JOSETTE, THYR #### [facility] ([id number]) [address] [place] [address] Basic Metabolic Panelon 07-06 Anion gap [Moles/Vol] 12 mmol/L 5 - 15 mmol/L [facility] Calcium [Mass/Vol] 9.8 mg/dL 8.5 - 10. 5 mg/dL [facility] Chloride [Moles/Vol] 99 mmol/L 98 - 10 9 mmol/L [facility] CO2 [Moles/Vol] 29 mmol/L 22 - 32 mmol/L [facility] Creatinine [Mass/Vol] 0.87 mg/dL 0.40 - 1.00 mg/dL [facility] Comment on above: METHOD TRACEABLE TO IDNY STANDARD eGFR (CKD-EPI)non-race dependent 65 - PINF [facility] Comment on above: Reported eGFR is based on the CKD-EPI 2020 equation that does not use a race coefficient. Glucose [Mass/Vol] 110 mg/dL High 65 - 99 mg/dL [facility] Interpretation and review of laboratory results Abnormal [facility] Potassium [Moles/Vol] 4.0 mmol/L 3.5 - 5.0 mmol/L [facility] Sodium [Moles/Vol] 140 mmol/L 134 - 146 mmol/L [facility] Urea nitrogen [Mass/Vol] 21 mg/dL 5 - 27 mg/dL [facility] THYROID PROFILEon 07-17-2023 Free T4 [Mass/Vol] 2.62 ng/dL High 0.61-1.60 [facility] Comment on above: Performed By: #### B JOSETTE, THYR #### [facility] ([id number]) [address] [place] [address] TSH 0.01 uIU/mL Low 0.49-4.67 [facility] Comment on above: Performed By: #### B MP, THYR #### [facility] ([id number]) [address] [place] [address] Thyroid profile includes TSH FT4on 07-17-2023 Free T4 [Mass/Vol] 2.62 ng/dL High 0.61 - 1.60 ng/dL [facility] Interpretation and review of laboratory results Abnormal [facility] TSH Qn 0.01 m[IU]/L Low [facility] Office Visiton 03-03-2023 Follow-up visit [id number] Ramy Madrigal 1935 F Date Provider Department Center 03/03/2023 ANGELIA CHO [facility] Family History Problem Relation Age of Onset Diabetes Sister Family Status - Relation Status Age at Sister Level of Service:05575 IN OFFICE/OUTPATIENT ESTABLISHED MOD MDM 30-39 MIN Normal [facility] ECHOCARDIO M/2D COMPLETEon 0 09-08-2022 ECHOCARDIO M/2D COMPLETE Patient: RAMY MADRIGAL Exam Date: 09/08/2022 : 1935 Gender:F Ordering : LEAH Bertin ALONA Admission #: [id number] Family : Order #: [id number] CLICK HERE TO VIEW EXAM ECHOCARDIOGRAM REPORT PROCEDURE: CARDIO PULMONARY ECHOCARDIO M/2D COMP INDICATIONS: Complete AV block COMPARISON: None. DESCRIPTION: COMPLETE ECHOCARDIOGRAM Real-time transthoracic echocardiography with 2D, M-mode, spectral and color flow Doppler performed. QUALITY: Technical quality was good. LEFT VENTRICLE: Normal chamber size. Normal left ventricular wall thickness. LV EF: Global left ventricular systolic function is normal. Calculated left ventricular ejection fraction is 61%. Abnormal septal motion; likely related to paced rhythm. DIASTOLIC: Normal diastolic function. ATRIAL SEPTUM: Inadequately seen. LEFT ATRIUM: Mild dilatation. RIGHT ATRIUM: Mild dilatation. RIGHT VENTRICLE: Appears enlarged. Decreased right ventricular systolic function. Pacer wire present. TRICUSPID VALVE: Normal mobility and thickness. Mild regurgitation. No evidence of pulmonary hypertension. RVSP 33mmHg MITRAL VALVE: Normal mobility and thickness. No evidence of mitral valve stenosis. Mild mitral annular calcification. Trivial mitral regurgitation. AORTIC VALVE: Normal trileaflet appearance. Thickened aortic valve. Normal leaflet mobility. No evidence of aortic valve stenosis. Trivial aortic regurgitation. AORTIC ROOT: Normal diameter and appearance. PULMONIC VALVE: Normal thickness and mobility. No stenosis. No regurgitation. PERICARDIUM: Anterior free space; trivial effusion versus fat pad. IVC: Collapses with inspirations. Normal size. CONCLUSION: Global left ventricular systolic function is normal; visually estimated ejection fraction is 60 to 65%. Abnormal septal motion. Biatrial enlargement. The right ventricle appears enlarged with reduced systolic function. Pacer wire is seen. Mild tricuspid regurgitation. Anterior free space; trivial effusion versus fat pad. Adult Echocardiography Procedure Report Left Ventricle LVEDD (3.7 - 5.6 cm): 4.67 cm LVESD (2.2 - 4.0 cm): 2.95 cm LVIVS thickness (0.6 - 1.2 cm): 0.88 cm LVPW thickness (0.5 - 1.0 cm): 0.64 cm e': 0.12 m/s E - e': 4.51 LVOT Max Gradient: 3.32 mm[Hg] Peak Velocity (LVOT): 0.91 m/s Mean Velocity (LVOT): 0.64 m/s LVOT Diameter 1.96 cm Left Ventricular Ejection Fraction: 66.76 %, 66.76 % Left Atrium LA Volume Index (2D A2C): 57.23 ml, 57.23 ml Left Atrium Systolic Dimension: 4.13 cm Mitral Valve MV E to A Ratio: 0.65 Mitral Valve A-Wave Peak Velocity: 0.83 m/s Mitral Valve E-Wave Peak Velocity: 0.54 m/s Right Ventricle RV Internal Diastolic Dimension: 3.48 cm Aorta AO Root Diam: 3.15 cm Aortic Valve AoV Area (Peak Lucho): 1.87 cm2, 1.87 cm2 AoV Area (VTI): 1.67 cm2, 1.67 cm2 Peak Velocity(Antegrade Flow): 1.46 m/s Peak Gradient(Antegrade Flow): 8.52 mm[Hg] Mean Velocity(Antegrade Flow): 1.04 m/s Mean Gradient(Antegrade Flow): 4.94 mm[Hg] Velocity Time Integral: 39.15 cm Tricuspid Valve Peak Velocity (Regurgitant Flow): 2.15 m/s, 1.97 m/s, 2.73 m/s Peak Velocity: 0.56 m/s Pulmonic Valve Mean Gradient: 1.24 mm[Hg] Mean Velocity: 0.50 m/s Peak Velocity: 0.81 m/s, 0.95 m/s Peak Gradient: 2.62 mm[Hg], 3.58 mm[Hg] Right Atrium Right Atrium Systolic Pressure: 27.61 ml, 27.61 ml Dictated by: Anushka Amaya M.D. on 09/09/2022 at 09:24 Approved by: Anushka Amaya M.D. on 09/09/2022 at 09:29 Normal [facility] LIPID PROFILEon 01-11-2022 CHOL-HDL RATIO NORM SEE BELOW Normal [facility] Comment on above: Result Comment: 3.3 - 4.4 LOW RISK 4.4 - 7.1 AVERAGE RISK 7.1 - 11.0 MODERATE RISK >11.0 HIGH RISK Performed By: #### L IPID, CMP #### [facility] [address] [address] [address] Cody Nicholson Cholesterol [Mass/Vol] 133 mg/dL Normal <=200 Th [facility] Comment on above: Performed By: #### L IPID, CMP #### [facility] [address] [address] [address] Cody Nicholson Cholesterol in HDL [Mass/Vol] 61 mg/dL Critically high 4 0-60 [facility] Comment on above: Performed By: #### L IPID, CMP #### [facility] [address] [address] [address] Cody Nicholson Cholesterol in LDL [Mass/Vol] 62.8 mg/dL Normal [facility] Comment on above: Performed By: #### L IPID, CMP #### [facility] [address] [address] [address] Cody Nicholson Cholesterol.total/Cholestero l in HDL [Mass ratio] 2.2 {ratio} Normal [facility] Comment on above: Performed By: #### L IPID, CMP #### [facility] [address] [address] [address] Cody Nicholson HDL NORMAL > or = 60 mg/dl - LOW CARDIOVASCULAR RISK <40 mg/dl - HIGH CARDIOVASCULAR RISK Normal [facility] Comment on above: Performed By: #### L IPID, CMP #### [facility] [address] [address] [address] Cody Nicholson LDL CALC NORMAL SEE BELOW Normal [facility] Comment on above: Result Comment: <100 mg/dl OPTIMAL 100 - 129 mg/dl NEAR OR ABOVE OPTIMAL 130 - 159 mg/dl BORDERLINE HIGH 160 - 189 mg/dl HIGH >190 mg/dl VERY HIGH Performed By: #### L IPID, CMP #### [facility] [address] [address] [address] Cody Nicholson Triglyceride [Mass/Vol] 46 mg/dL Normal <=150 T [facility] Comment on above: Performed By: #### L IPID, CMP #### [facility] [address] [address] [address] Cody Nicholson VLDL CALC 9.2 mg/dL Normal [facility] Comment on above: Performed By: #### L IPID, CMP #### [facility] [address] [address] [address] Cody Nicholson PROF 14(COMP METB)on 022 Albumin [Mass/Vol] 4.0 g/dL Normal 3.4-5.0 [facility] Comment on above: Performed By: #### L IPID, CMP #### [facility] [address] [address] [address] Cody Nicholson Albumin/Globulin [Mass ratio] 1.2 {ratio} Normal [facility] Comment on above: Performed By: #### L IPID, CMP #### [facility] [address] [address] [address] Cody Nicholson ALP [Catalytic activity/Vol] 86 U/L Normal 46-116 [facility] Comment on above: Performed By: #### L IPID, CMP #### [facility] [address] [address] [address] Cody Nicholson ALT [Catalytic activity/Vol] 22 U/L Normal 14-59 [facility] Comment on above: Performed By: #### L IPID, CMP #### [facility] [address] [address] [address] Cody Nicholson Anion gap [Moles/Vol] 7.3 mmol/L Normal [facility] Comment on above: Performed By: #### L IPID, CMP #### [facility] [address] [address] [address] Cody Nicholson AST [Catalytic activity/Vol] 19 U/L Normal 15-37 [facility] Comment on above: Performed By: #### L IPID, CMP #### [facility] [address] [place] [address] Dr. Cody Nicholson Bilirubin [Mass/Vol] 0.6 mg/dL Normal 0.2-1.0 [facility] Comment on above: Performed By: #### L IPID, CMP #### [facility] [address] [address] [address] Cody Nicholson Calcium [Mass/Vol] 9.2 mg/dL Normal 8.5-10.1 [facility] Comment on above: Performed By: #### L IPID, CMP #### [facility] [address] [address] [address] Cody Nicholson Chloride [Moles/Vol] 101 mmol/L Normal 98-107 [facility] Comment on above: Performed By: #### L IPID, CMP #### [facility] [address] [address] [address] Cody Nicholson CO2 [Moles/Vol] 32.3 mmol/L Critically high 21.0-32.0 [facility] Comment on above: Performed By: #### L IPID, CMP #### [facility] [address] [address] [address] Cody Nicholson Creatinine [Mass/Vol] 0.88 mg/dL Normal 0.55-1.02 [facility] Comment on above: Performed By: #### L IPID, CMP #### [facility] [address] [address] [address] Cody Nicholson EGFR-AF ESTONIAN >60 Normal >=60 [facility] Comment on above: Performed By: #### L IPID, CMP #### [facility] [address] [address] [address] Cody Nicholson EGFR-NON AF ESTONIAN >60 Normal >=60 [facility] Comment on above: Performed By: #### L IPID, CMP #### [facility] [address] [address] [address] Cody Nicholson Globulin (S) [Mass/Vol] 3.3 g/dL Normal [facility] Comment on above: Performed By: #### L IPID, CMP #### [facility] [address] [address] [address] Cody Nicholson Glucose [Mass/Vol] 145 mg/dL Critically high 74-106 [facility] Comment on above: Performed By: #### L IPID, CMP #### [facility] [address] [address] [address] Cody Nicholson Potassium [Moles/Vol] 3.6 mmol/L Normal 3.5-5.1 [facility] Comment on above: Performed By: #### L IPID, CMP #### [facility] [address] [address] [address] Cody Nicholson Protein [Mass/Vol] 7.3 g/dL Normal 6.4-8.2 [facility] Comment on above: Performed By: #### L IPID, CMP #### [facility] [address] [address] [address] Cody Nicholson Sodium [Moles/Vol] 137 mmol/L Normal 136-145 [facility] Comment on above: Performed By: #### L IPID, CMP #### [facility] [address] [address] [address] Cody Nicholson Urea nitrogen [Mass/Vol] 22.0 mg/dL Critically high 7.0-18 .0 [facility] Comment on above: Performed By: #### L IPID, CMP #### [facility] [address] [address] [address] Cody Nicholson Urea nitrogen/Creatinine [Mass ratio] 25.0 mg/mg Normal [facility] Comment on above: Performed By: #### L IPID, CMP #### [facility] [address] [place], [place] [address] Dr. Cody Nicholson US BREAST LEFT LIMITEDon US BREAST LEFT LIMITED Patient: RAMY MADRIGAL Exam Date: 12/15/2021 : 1935 Gender:F Ordering : DR. SINDHU CAN M.D. Admission #: [id number] Family : Order #: [id number] CLICK HERE TO VIEW EXAM RADIOLOGY REPORT PROCEDURE: ULTRASOUND BREAST LEFT LIMITED COMPARISON: MG MAMM SCREEN [place] W CAD, 09/20/2016. MG MAMM [place] SCRN W CAD DIG, 08/21/2013. INDICATIONS: Mass of trunk TECHNIQUE: Breast ultrasound was performed, with evaluation focusing only on specific areas of concern. FINDINGS: Ultrasound left breast 4 o'clock position was performed demonstrating linear area of hyper echogenicity with acoustic shadowing along the patient's surgical scar. No focal mass is observed. RECOMMENDATIONS: Ultrasound findings consistent a surgical scar PLEASE NOTE: A NORMAL ULTRASOUND EXAMINATION DOES NOT EXCLUDE THE POSSIBILITY OF BREAST CANCER. A CLINICALLY SUSPICIOUS PALPABLE LUMP SHOULD BE BIOPSIED. Dictated by: Abundio Menon MD on 12/15/2021 at 11:36 Approved by: Abundio Menon MD on 12/15/2021 at 11:38 Normal [facility] BASIC METABOLIC PANELon 07-2 Calcium [Mass/Vol] 8.0 mg/dL Low 8.6-10.3 [facility] Comment on above: Order Comment: No: D o not add to previous draw Performed By: #### 6 2586 #### [facility] [address] [place] [address], [facility] Chloride [Moles/Vol] 108 mmol/L High 98-107 [facility] Comment on above: Order Comment: No: D o not add to previous draw Performed By: #### 6 2586 #### [facility] [address] [place] [address], [place] CO2 [Moles/Vol] 25 mmol/L Normal 21-31 [facility] Comment on above: Order Comment: No: D o not add to previous draw Performed By: #### 6 2586 #### [facility] [address] [place] [address], [place] Creatinine [Mass/Vol] 0.75 mg/dL Normal 0.60-1.20 [facility] Comment on above: Order Comment: No: D o not add to previous draw Performed By: #### 6 2586 #### [facility] [address] [place] [address], [place] GFR/1.73 sq M.predicted chadwick g non-blacks MDRD (S/P/Bld) [Vol rate/Area] mL/min/{1.73_m2} Normal >60 [facility] Comment on above: Order Comment: No: D o not add to previous draw Result Comment: [facility]'s estimated glomerular filtration rate (eGFR) will no longer include consideration of race in its calculation. The National Kidney Foundation's eGFR Task Force developed new recommendations for the estimation of the glomerular filtration rate in the [place] They recommend immediate implementation of the new equation refit without the race variable in all laboratories because the calculation does not include race. In addition to not including race in the calculation and reporting, it included diversity in its development, and has acceptable performance characteristics and potential consequences that do not disproportionately affect any one group of individuals. Performed By: #### 6 2586 #### [facility] [address] [place] [address], [place] Glucose [Mass/Vol] 95 mg/dL Normal 70-100 [facility] Comment on above: Order Comment: No: D o not add to previous draw Performed By: #### 6 2586 #### [facility] [address] [place] [address], [place] Potassium [Moles/Vol] 4.2 mmol/L Normal 3.5-5.1 [facility] Comment on above: Order Comment: No: D o not add to previous draw Performed By: #### 6 2586 #### [facility] [address] [place] [address], [facility] Sodium [Moles/Vol] 139 mmol/L Normal 136-145 [facility] Comment on above: Order Comment: No: D o not add to previous draw Performed By: #### 6 2586 #### [facility] [address] [place] [address], [facility] Urea nitrogen [Mass/Vol] 13 mg/dL Normal 7-25 [facility] Comment on above: Order Comment: No: D o not add to previous draw Performed By: #### 6 2586 #### [facility] [address] [place] [address], [facility] CBC COMPLETE BLOOD COUNTon 12-01-2021 Erythrocyte distribution width (RBC) [Ratio] 13.2 % Normal 11.5-15.0 [facility] Comment on above: Order Comment: No: D o not add to previous draw Performed By: #### 8 [id number] #### [facility] [address] [place] [address], [facility] Hematocrit (Bld) [Volume fraction] 32.8 % Low 36.0-45.0 [facility] Comment on above: Order Comment: No: D o not add to previous draw Performed By: #### 8 [id number] #### [facility] [address] [place] [address], [facility] Hemoglobin (Bld) [Mass/Vol] 10.8 g/dL Low 12.0-15. 0 [facility] Comment on above: Order Comment: No: D o not add to previous draw Performed By: #### 8 [id number] #### [facility] [address] [place] [address], [place] MCH (RBC) [Entitic mass] 28.6 pg Normal 27.0-33.0 [facility] Comment on above: Order Comment: No: D o not add to previous draw Performed By: #### 8 [id number] #### [facility] [address] [place] [address], [facility] MCHC (RBC) [Mass/Vol] 32.9 g/dL Normal 32.0-35.0 [facility] Comment on above: Order Comment: No: D o not add to previous draw Performed By: #### 8 [id number] #### [facility] [address] [place] [address], [facility] MCV (RBC) [Entitic vol] 87.0 fL Normal 82.0-98.0 [facility] Comment on above: Order Comment: No: D o not add to previous draw Performed By: #### 8 [id number] #### [facility] [address] [facility] [place] [address], [facility] Nucleated RBC/100 WBC (Bld) [Ratio] 0 % Normal 0-0 [facility] Comment on above: Order Comment: No: D o not add to previous draw Performed By: #### 8 [id number] #### [facility] [address] [place] [address], [facility] PLAT CNT 196 10*3/uL Normal 150-400 [facility] Comment on above: Order Comment: No: D o not add to previous draw Performed By: #### 8 [id number] #### [facility] [address] [place] [address], [facility] RBC (Bld) [#/Vol] 3.77 10*6/uL Low 3.80-5.00 [facility] Comment on above: Order Comment: No: D o not add to previous draw Performed By: #### 8 [id number] #### [facility] [address] [place] [address], [facility] WBC (Bld) [#/Vol] 11.34 10*3/uL High 4.00-10.60 [facility] Comment on above: Order Comment: No: D o not add to previous draw Performed By: #### 8 [id number] #### [facility] [address] [place] [address], [facility] MAGNESIUM BLOODon 12-01-2021 Magnesium [Mass/Vol] 1.8 mg/dL Low 1.9-2.7 [facility] Comment on above: Order Comment: No: D o not add to previous draw Performed By: #### 6 2586 #### [facility] [address] Operative Reporton 2 Operative Report MR#: [id number] I [facility] Pt. 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 OPERATION: 1. Left mini thoracotomy and repair of right ventricular perforation. 2. Removal of right ventricular lead. 3. Excisional debridement of pacemaker pocket. 4. Insertion of right ventricular lead. MANAGER DRUG: Amos Millard. ANESTHESIA: General with double-lumen endotracheal intubation. ANESTHESIOLOGIST: Liz Abad M.D. INDICATIONS: This is an 86-year-old female, who had undergone recently pacemaker placement and was pacer dependent. The patient was noted to have increasing chest pain as well as increasing thresholds of the lead. Workup included CT scan that showed the lead to have perforated ventricle. DESCRIPTION OF PROCEDURE: The patient was brought to the operating room and prepped and draped in the routine fashion with the left chest elevated about 20 degrees. Incision was made in the left chest in the 6th intercostal space. Pericardium was opened. Right ventricular apex was visualized. The lead could be palpated from outside and indeed it had perforated, but there was no bleeding actively around it. A 4-0 Prolene pledgeted suture was placed in the right ventricle, going from 1 side of the lead to the other under the lead. With that suture in place, we then proceeded in the left upper chest where a pacemaker pocket was reopened. The device was delivered from the pocket. Capsule was excised. The leads were descent angled and then we proceeded with placement of a new right ventricular lead. Left subclavian vein was entered with a needle and a guidewire was inserted under fluoroscopy. Guidewire kept going into the right subclavian vein rather than turning down, but eventually with a little bit of maneuvering, we were able to get the wire down into the right atrium. A long sheath was inserted. With the help of this, the ventricular lead was inserted into the right ventricle. With a couple of attempts, we were able to find a good spot where the right ventricular lead had excellent impedance and pacing threshold of less than 1 V. The lead was screwed in place and then we quickly connected this new lead to the original pacemaker device, disconnecting the old ventricular lead. The patient tolerated this procedure well and then the old lead was removed. The screw was withdrawn and then the lead was gently pulled out. Hemostasis was secured at the lead exit site. The pacemaker was then inserted into the pocket and secured with a stitch. Under fluoroscopy, we checked with a 10 V pacing and there was no pacing of the phrenic nerve. Wound was copiously irrigated with antibiotic saline. At the right ventricular apex, we tied the suture down around the perforated ventricle, but there was no significant bleeding from that site, just some subcu hematoma around that site and then a Ciro drain was placed in the left chest. Chest was closed with #2 Pericostal, #1 Vicryl for fascia, 2-0 Vicryl, and 4-0 Monocryl stitches. The chest pocket was closed in layers using 2-0 Vicryl and 4-0 Monocryl stitches. Dermabond was applied. The patient was extubated and taken to the recovery room in a stable condition. Electronically Signed by: Sindhu Can MD 12/19/2021 03:08 P Sindhu Can MD Date Dict: 11/30/2021/12:04 P/Sindhu Can MD Date Trans: 11/30/2021 10:23 P/roya CHILDERS_JN:[id number] cc: Seven Palmer M.D. [facility] [address] [place] [id number] Normal [facility] POC GLUCOSE LABon 12-01-2021 Glucose [Mass/Vol] 100 mg/dL Normal 70-100 [facility] Comment on above: Performed By: #### 8 [id number] #### [facility] [address] [place], [place] [id number] [place] [address] Glucose [Mass/Vol] 87 mg/dL Normal 70-100 [facility] Comment on above: Performed By: #### 8 [id number] ####[facility] [place] [address], [facility] PORTABLE CHEST 1 VIEWon 11-06 PORTABLE CHEST 1 VIEW [facility] Department of Radiology [address] [place] [address] Patient Name: RAMY MADRIGAL : 1935 Sex: F Age: Race: White Pt. Location: [address] [place] [address] Patient Status: I Ordered Date: 12/01/2021 5:00:00 AM Completed Date: 12/01/2021 06:58 AM Requesting Provider: LOGAN KIRKLAND Attending Provider: SINDHU CAN Report Copy To: Signs & Symptoms: Atelectasis History: Comments: Atelectasis Exam: PORTABLE CHEST 1 VIEW PORTABLE CHEST 1 VIEW 12/01/2021 6:58 AM CLINICAL INDICATIONS: Atelectasis TECHNOLOGIST COMMENTS: Atelectasis QUESTION FOR THE RADIOLOGIST: Atelectasis PROTOCOL: AP(PA) view was obtained. COMPARISON: 11/30/2021 FINDINGS: Decreased lung volumes. Increased small right effusion. Stable small left effusion and left basilar atelectasis. Stable pulmonary vasculature. IMPRESSION: Slight increased right pleural effusion. Electronically signed: Edgar Jenkins. Transcribed by: [email or web address], User Resident: Electronically Signed by: EDGAR JENKINS @ 12/01/2021 07:25 AM Normal [facility] Comment on above: Order Comment: Check Pacemaker/AICD Lead Position BASIC METABOLIC PANELon 11-06 Calcium [Mass/Vol] 7.8 mg/dL Low 8.6-10.3 [facility] Comment on above: Order Comment: No: D o not add to previous draw Performed By: #### 0 0071 ####[facility] [place] [address], [place] Chloride [Moles/Vol] 105 mmol/L Normal 98-107 [facility] Comment on above: Order Comment: No: D o not add to previous draw Performed By: #### 0 0071 ####[facility] [place] [address], [place] CO2 [Moles/Vol] 23 mmol/L Normal 21-31 [facility] Comment on above: Order Comment: No: D o not add to previous draw Performed By: #### 0 0071 ####[facility] [place] [address], [place] Creatinine [Mass/Vol] 0.85 mg/dL Normal 0.60-1.20 [facility] Comment on above: Order Comment: No: D o not add to previous draw Performed By: #### 0 0071 ####[facility] [place] [address], [place] GFR/1.73 sq M.predicted chadwick g non-blacks MDRD (S/P/Bld) [Vol rate/Area] mL/min/{1.73_m2} Normal >60 [facility] Comment on above: Order Comment: No: D o not add to previous draw Result Comment: [facility]'s estimated glomerular filtration rate (eGFR) will no longer include consideration of race in its calculation. The National Kidney Foundation's eGFR Task Force developed new recommendations for the estimation of the glomerular filtration rate in the [place] They recommend immediate implementation of the new equation refit without the race variable in all laboratories because the calculation does not include race. In addition to not including race in the calculation and reporting, it included diversity in its development, and has acceptable performance characteristics and potential consequences that do not disproportionately affect any one group of individuals. Performed By: #### 0 0071 ####[facility] [place] [address], [facility] Glucose [Mass/Vol] 164 mg/dL High 70-100 [facility] Comment on above: Order Comment: No: D o not add to previous draw Performed By: #### 0 0071 ####[facility] [facility] [address], [facility] Potassium [Moles/Vol] 3.5 mmol/L Normal 3.5-5.1 [facility] Comment on above: Order Comment: No: D o not add to previous draw Performed By: #### 0 0071 ####[facility] [facility] [place] [address], [facility] Sodium [Moles/Vol] 137 mmol/L Normal 136-145 [facility] Comment on above: Order Comment: No: D o not add to previous draw Performed By: #### 0 0071 ####[facility] [facility] [place] [address], [facility] Urea nitrogen [Mass/Vol] 14 mg/dL Normal 7-25 [facility] Comment on above: Order Comment: No: D o not add to previous draw Performed By: #### 0 0071 ####[facility] CHEST AND LATERALon 12-01-19 CHEST AND LATERAL [facility] Department of Radiology [address] [place] [id number] Patient Name: RAMY MADRIGAL : 1935 Sex: F Age: Race: White Pt. Location: [address] [place] [address] Patient Status: I Ordered Date: 11/30/2021 11:50:00 AM Completed Date: 11/30/2021 12:42 PM Requesting Provider: GIGI BROWN Attending Provider: SINDHU CAN Report Copy To: Signs & Symptoms: Post Chest Tube Removal History: Comments: Pneumothorax Exam: CHEST AND LATERAL CHEST AND LATERAL 11/30/2021 12:42 PM CLINICAL INDICATIONS: Post Chest Tube Removal TECHNOLOGIST COMMENTS: Post Chest Tube Removal, check for pneumothorax per ordering physician. QUESTION FOR THE RADIOLOGIST: Pneumothorax PROTOCOL: AP(PA) and Lateral views were obtained. COMPARISON: 11/30/2021 FINDINGS: Left chest tube is removed. Pacemaker is present. There are small pleural effusions. Congestion is improved. Lower lobe infiltrate/atelecta sis still present. No pneumothorax. IMPRESSION: No pneumothorax after chest tube removal. Electronically signed: Johnson Cornelius. Transcribed by: [email or web address], User Resident: Electronically Signed by: JOHNSON CORNELIUS @ 11/30/2021 12:47 PM Normal [facility] Comment on above: Order Comment: Check Pacemaker/AICD Lead Position MAGNESIUM BLOODon 11-30-2021 Magnesium [Mass/Vol] 1.8 mg/dL Low 1.9-2.7 [facility] Comment on above: Order Comment: Disse ction Performed By: #### 1 0070 ####[facility] [place] [address], [facility] POC GLUCOSE LABon 11-30-2021 Glucose [Mass/Vol] 114 mg/dL High 70-100 [facility] Comment on above: Performed By: #### 8 [id number] #### [facility] [address] [facility] [place] [address], [facility] Glucose [Mass/Vol] 139 mg/dL High 70-100 [facility] Comment on above: Performed By: #### 8 [id number] #### [facility] [address] [facility] [place] [address], [facility] Glucose [Mass/Vol] 147 mg/dL High 70-100 [facility] Comment on above: Performed By: #### 8 [id number] ####[facility] [place] [address], [facility] Glucose [Mass/Vol] 138 mg/dL High 70-100 [facility] Comment on above: Performed By: #### 8 [id number] ####[facility] [place] [address], [facility] PORTABLE CHEST 1 VIEWon 11-06 PORTABLE CHEST 1 VIEW [facility] Department of Radiology [address] [place] [address] Patient Name: RAMY MADRIGAL : 1935 Sex: F Age: Race: White Pt. Location: [address] [place] [address] Patient Status: I Ordered Date: 11/30/2021 4:40:00 PM Completed Date: 11/30/2021 05:02 PM Requesting Provider: LOGAN KIRKLAND Attending Provider: SINDHU CAN Report Copy To: Signs & Symptoms: O2 Desaturation History: Comments: Pneumothorax Exam: PORTABLE CHEST 1 VIEW PORTABLE CHEST 1 VIEW 11/30/2021 5:02 PM CLINICAL INDICATIONS: O2 Desaturation TECHNOLOGIST COMMENTS: O2 Desaturation QUESTION FOR THE RADIOLOGIST: Pneumothorax PROTOCOL: AP(PA) view was obtained. COMPARISON: 11/30/2021 FINDINGS: Stable cardiac silhouette and pulmonary vessels. Cardiac pacer. No pneumothorax. Small left pleural effusion, left base airspace opacity. IMPRESSION: No evidence for pneumothorax. Stable left base infiltrate and pleural effusion. Electronically signed: Amy Melgar. Transcribed by: [email or web address], User Resident: Electronically Signed by: AMY MELGAR @ 11/30/2021 05:40 PM Normal [facility] Comment on above: Order Comment: Pneum othorax PORTABLE CHEST 1 VIEW [facility] Department of Radiology [address] [place] [id number] Patient Name: RAMY MADRIGAL : 1935 Sex: F Age: Race: White Pt. Location: [address] [place] [address] Patient Status: I Ordered Date: 11/30/2021 5:00:00 AM Completed Date: 11/30/2021 07:35 AM Requesting Provider: LOGAN KIRKLAND Attending Provider: SINDHU CAN Report Copy To: Signs & Symptoms: Pneumo Thorax History: Comments: Evaluate for Pneumothorax Exam: PORTABLE CHEST 1 VIEW PORTABLE CHEST 1 VIEW CLINICAL INDICATION: Pneumothorax. COMPARISON: 11/29/2021. IMPRESSION: 1. Pulmonary vascular congestion noted, likely trace pleural effusions with left greater than right lung base airspace disease atelectasis versus developing pneumonia. 2. Unchanged cardiomediastinal silhouette. Left chest wall CIED. Electronically signed: Bryce Norman. Transcribed by: [id number], User Resident: Electronically Signed by: BRYCE NORMAN @ 11/30/2021 02:48 PM Normal [facility] Comment on above: Order Comment: Check Pacemaker/AICD Lead Position APTTon 11-29-2021 aPTT Coag (Bld) [Time] 36.4 s High 25.0-35.0 [facility] Comment on above: Order Comment: No: D o not add to previous draw Result Comment: ALL RESULTS MUST BE INTERPRETED WITH RESPECT TO BLOOD DRAWING ARTIFACT OR DILUTION ERROR OF ANTICOAGULANT AT THE TIME OF SAMPLING. THE APTT SHOULD NOT BE USED TO MONITOR UNFRACTIONATED HEPARIN THERAPY, THIS LABORATORY NO LONGER HAS AN ESTABLISHED THERAPEUTIC RANGE BASED ON THE APTT. IT IS RECOMMENDED THAT THE UFH - HEPARIN ASSAY (ANTI-XA ACTIVITY) BE USED FOR THIS PURPOSE. Performed By: #### 8 [id number] #### [facility] [address] [place] [address], [facility] BASIC METABOLIC PANELon 11-06 Calcium [Mass/Vol] 8.0 mg/dL Low 8.6-10.3 [facility] Comment on above: Order Comment: No: D o not add to previous draw Performed By: #### 6 [id number] #### [facility] [address] [place] [address], [facility] Chloride [Moles/Vol] 106 mmol/L Normal 98-107 [facility] Comment on above: Order Comment: No: D o not add to previous draw Performed By: #### 6 [id number] #### [facility] [address] [place] [address], [facility] CO2 [Moles/Vol] 25 mmol/L Normal 21-31 [facility] Comment on above: Order Comment: No: D o not add to previous draw Performed By: #### 6 [id number] #### [facility] [address] [place] [address], [facility] Creatinine [Mass/Vol] 0.74 mg/dL Normal 0.60-1.20 [facility] Comment on above: Order Comment: No: D o not add to previous draw Performed By: #### 6 [id number] #### [facility] [address] [facility] [place] [address], [facility] GFR/1.73 sq M.predicted chadwick g non-blacks MDRD (S/P/Bld) [Vol rate/Area] mL/min/{1.73_m2} Normal >60 [facility] Comment on above: Order Comment: No: D o not add to previous draw Result Comment: [facility]'s estimated glomerular filtration rate (eGFR) will no longer include consideration of race in its calculation. The National Kidney Foundation's eGFR Task Force developed new recommendations for the estimation of the glomerular filtration rate in the [place] They recommend immediate implementation of the new equation refit without the race variable in all laboratories because the calculation does not include race. In addition to not including race in the calculation and reporting, it included diversity in its development, and has acceptable performance characteristics and potential consequences that do not disproportionately affect any one group of individuals. Performed By: #### 6 [id number] #### [facility] [address] [place] [address], [facility] Glucose [Mass/Vol] 136 mg/dL High 70-100 [facility] Comment on above: Order Comment: No: D o not add to previous draw Performed By: #### 6 [id number] #### [facility] [address] [place] [address], [facility] Potassium [Moles/Vol] 2.9 mmol/L Low 3.5-5.1 [facility] Comment on above: Order Comment: No: D o not add to previous draw Performed By: #### 6 2586 #### [facility] [address] [place] [address], [facility] Sodium [Moles/Vol] 141 mmol/L Normal 136-145 [facility] Comment on above: Order Comment: No: D o not add to previous draw Performed By: #### 6 [id number] #### [facility] [address] [place] [address], [facility] Urea nitrogen [Mass/Vol] 10 mg/dL Normal 7-25 [facility] Comment on above: Order Comment: No: D o not add to previous draw Performed By: #### 6 2586 #### [facility] [address] [facility] [address] [place] [id number], [facility] CBC W/DIFFon 11-29-2021 ABS IMM GRANS 0.0 10*3/uL Normal 0.0-0.2 [facility] Comment on above: Performed By: #### 8 [id number] #### [facility] [address] [place] [address], [facility] ABS NEUTROPHILS 7.3 10*3/uL Normal 1.6-7.6 [facility] Comment on above: Performed By: #### 8 [id number] #### [facility] [address] [place] [address], [facility] Basophils (Bld) [#/Vol] 0.1 10*3/uL Normal 0.0-0.2 [facility] Comment on above: Performed By: #### 8 [id number] #### [facility] [address] [place] [address], [facility] Basophils/100 WBC (Bld) 0.6 % Normal 0.0-1.0 [facility] Comment on above: Performed By: #### 8 [id number] #### [facility] [address] [place] [address], [facility] Eosinophils (Bld) [#/Vol] 0.2 10*3/uL Normal 0.0-0.5 [facility] Comment on above: Performed By: #### 8 [id number] #### [facility] [address] [place] [address], [facility] Eosinophils/100 WBC (Bld) 1.7 % Normal 0.0-6.0 [facility] Comment on above: Performed By: #### 8 [id number] #### [facility] [address] [facility] [address], [facility] Erythrocyte distribution width (RBC) [Ratio] 12.3 % Normal 11.5-15.0 [facility] Comment on above: Performed By: #### 8 [id number] #### [facility] [address] [facility] [place] [address], [facility] Hematocrit (Bld) [Volume fraction] 36.4 % Normal 36.0-45.0 [facility] Comment on above: Performed By: #### 8 [id number] #### [facility] [address] [facility] [address] [place] [id number], [facility] Hemoglobin (Bld) [Mass/Vol] 12.2 g/dL Normal 12.0-15. 0 [facility] Comment on above: Performed By: #### 8 [id number] #### [facility] [address] [place] [address], [facility] IMMATURE GRANS 0.3 % Normal 0.0-1.0 [facility] Comment on above: Performed By: #### 8 [id number] #### [facility] [address] [facility] [place] [address], [facility] Lymphocytes (Bld) [#/Vol] 2.3 10*3/uL Normal 1.2-4.0 [facility] Comment on above: Performed By: #### 8 [id number] #### [facility] [address] [facility] [place] [address], [facility] Lymphocytes/100 WBC (Bld) 21.8 % Normal 20.0-45.0 [facility] Comment on above: Performed By: #### 8 [id number] #### [facility] [address] [facility] [address], [facility] MCH (RBC) [Entitic mass] 28.8 pg Normal 27.0-33.0 [facility] Comment on above: Performed By: #### 8 [id number] #### [facility] [address] [facility] MCHC (RBC) [Mass/Vol] 33.5 g/dL Normal 32.0-35.0 [facility] Comment on above: Performed By: #### 8 [id number] #### [facility] [address] [facility] [place] [address], [facility] MCV (RBC) [Entitic vol] 85.8 fL Normal 82.0-98.[address] [facility] Comment on above: Performed By: #### 8 [id number] #### [facility] [address] [facility] [place] [address], [facility] Monocytes (Bld) [#/Vol] 0.7 10*3/uL Normal 0.1-1.0 [facility] Comment on above: Performed By: #### 8 [id number] #### [facility] [address] [place] [address], [facility] MONOS 6.9 % Normal 5.0-12.0 [facility] Comment on above: Performed By: #### 8 [id number] #### [facility] [address] [place] [address], [facility] Neutrophils/100 WBC (Bld) 68.7 % Normal 40.0-72.0 [facility] Comment on above: Performed By: #### 8 [id number] #### [facility] [address] [place] [address], [facility] Nucleated RBC/100 WBC (Bld) [Ratio] 0 % Normal 0-0 [facility] Comment on above: Performed By: #### 8 [id number] #### [facility] [address] [place] [address], [facility] PLAT CNT 199 10*3/uL Normal 150-400 [facility] Comment on above: Performed By: #### 8 [id number] #### [facility] [address] [place] [address], [facility] RBC (Bld) [#/Vol] 4.24 10*6/uL Normal 3.80-5.00 [facility] Comment on above: Performed By: #### 8 [id number] #### [place] [address], [facility] WBC (Bld) [#/Vol] 10.64 10*3/uL High 4.00-10.60 [facility] Comment on above: Performed By: #### 8 [id number] #### [address] CHEST 1 VWon 11-29-2021 CHEST 1 [facility] Department of Radiology [address] [place] [id number] Patient Name: RAMY MADRIGAL : 1935 Sex: F Age: Race: White Pt. Location: OUTP Patient Status: I Ordered Date: 11/29/2021 7:30:00 AM Completed Date: 11/29/2021 09:55 AM Requesting Provider: SINDHU CAN Attending Provider: SINDHU CAN Report Copy To: Signs & Symptoms: left mini thoracotomy, left ventricular lead removal, right ventricular lead removal and replacement and poss repair of right ventricular perforation History: Comments: left mini thoracotomy, left ventricular lead removal, right ventricular lead removal and replacement and poss repair of right ventricular perforation Exam: CHEST 1 VW CHEST 1 VW 11/29/2021 9:55 AM CLINICAL INDICATIONS: left mini thoracotomy, left ventricular lead removal, right ventricular lead removal and replacement and poss repair of right ventricular perforation TECHNOLOGIST COMMENTS: 5.36 mins of fluoro used by Dr Castillo QUESTION FOR THE RADIOLOGIST: left mini thoracotomy, left ventricular lead removal, right ventricular lead removal and replacement and poss repair of right ventricular perforation PROTOCOL: 5 intraoperative spot views of the chest. IMPRESSION: Fluoroscopic time 5 minutes and 36 seconds provided. Images of the mid chest shows: Overlying the mid chest. Electronically signed: Johnson Cornelius. Transcribed by: [id number], User Resident: Electronically Signed by: JOHNSON CORNELIUS @ 11/30/2021 08:46 AM Normal [facility] Comment on above: Order Comment: Check Pacemaker/AICD Lead Position MAGNESIUM BLOODon 11-29-2021 Magnesium [Mass/Vol] 1.6 mg/dL Low 1.9-2.7 [facility] Comment on above: Performed By: #### 6 2586 #### [facility] [address] [place] [address], [facility] PHOSPHORUS BLOODon Phosphate [Mass/Vol] 3.1 mg/dL Normal 2.5-5.0 [facility] Comment on above: Performed By: #### 6 2586 #### [facility] [address] [facility] [place] [address], [facility] POC GLUCOSE LABon 11-29-2021 Glucose [Mass/Vol] 174 mg/dL High 70-100 [facility] Comment on above: Performed By: #### 8 [id number] #### [facility] [address] [facility] [place] [address], [place] Glucose [Mass/Vol] 120 mg/dL High 70-100 [facility] Comment on above: Performed By: #### 8 [id number] ####[facility] [facility] [place] [address], [place] Glucose [Mass/Vol] 115 mg/dL High 70-100 [facility] Comment on above: Performed By: #### 8 [id number] ####[facility] [facility] [place] [address], [facility] PORTABLE CHEST 1 VIEWon 11-06 PORTABLE CHEST 1 VIEW [facility] Department of Radiology [address] [place] [id number] Patient Name: RAMY MADRIGAL : 1935 Sex: F Age: Race: White Pt. Location: OUTP Patient Status: O Ordered Date: 11/29/2021 11:10:00 AM Completed Date: 11/29/2021 11:29 AM Requesting Provider: GIGI BROWN Attending Provider: SINDHU CAN Report Copy To: Signs & Symptoms: Post OP History: Comments: Pneumothorax, patient in PACU Exam: PORTABLE CHEST 1 VIEW PORTABLE CHEST 1 VIEW 11/29/2021 11:29 AM CLINICAL INDICATIONS: Post OP TECHNOLOGIST COMMENTS: Pneumothorax - left sided chest tube - POST OP QUESTION FOR THE RADIOLOGIST: Pneumothorax, patient in PACU PROTOCOL: AP(PA) view was obtained. COMPARISON: No prior FINDINGS: Chest tube is coiled in the left hemithorax. There is a small left pleural effusion and left lower lobe airspace density likely atelectasis. Mediastinum are unremarkable pacemaker on the left. Right lung is clear. Right central line tip in the superior vena cava IMPRESSION: Chest tube over the left hemithorax. Small left pleural effusion. Left basilar airspace density likely a cyst. No Electronically signed: Mikael Gresham. Transcribed by: [id number], User Resident: Electronically Signed by: MIKAEL GRESHAM @ 11/29/2021 12:25 PM Normal [facility] Comment on above: Order Comment: Pneum othorax, patient in PACU PROTHROMBIN TIMEon 2 INR Coag (PPP) [Relative time] 1.18 {INR} High 0.91-1.16 [facility] Comment on above: Result Comment: ACCC P RECOMMENDED INR FOR WARFARIN THERAPY ------- CONDITION INR PROPHYLAXIS OF VENOUS THROMBOSIS 2-3 (HIGH-RISK SURGERY) TREATMENT OF VENOUS THROMBOSIS 2-3 TREATMENT OF PULMONARY EMBOLISM 2-3 PREVENTION OF SYSTEMIC EMBOLISM: 2-3 ACUTE MYOCARDIAL INFARCTION TISSUE HEART VALVES VALVULAR HEART DISEASE ATRIAL FIBRILLATION RECURRENT SYSTEMIC EMBOLISM MECHANICAL HEART VALVE 2.5-3.5 FROM: ORAL ANTICOAGULANTS. MECHANISM OF ACTION, CLINICAL EFFECTIVENESS, AND OPTIMAL THERAPEUTIC RANGE. CHEST 1995;108:231S-246S. Performed By: #### 8 [id number] #### [facility] [address] [place] [address], [facility] PT Coag (PPP) [Time] 14.9 s High 12.3-14.8 [facility] Comment on above: Result Comment: ALL RESULTS MUST BE INTERPRETED WITH RESPECT TO BLOOD DRAWING ARTIFACT OR DILUTION ERROR OF ANTICOAGULANT AT THE TIME OF SAMPLING. Performed By: #### 8 [id number] #### [facility] [address] [place] [address], [facility] RBC'S 2 UNITSon 11-29-2021 CROSSMATCH INTERP 1 COMP Normal [facility] Comment on above: Performed By: #### 8 [id number] ####[facility] [facility] [place] [address], [facility] CROSSMATCH INTERP 2 COMP Normal [facility] Comment on above: Performed By: #### 8 6002 ####[facility] [facility] [place] [address], [facility] PRODUCT CODE 1 E0336 Normal [facility] Comment on above: Performed By: #### 8 6002 ####[facility] [facility] [place] [address], [facility] PRODUCT CODE 2 E0336 Normal [facility] Comment on above: Performed By: #### 8 6002 ####[facility] [facility] [place] [address], [facility] PRODUCT STATUS 1 RE Normal [facility] Comment on above: Result Comment: Resu lt changed by IF on 11/29/2021 07:53. The previous value was XM. Result changed by IF on 11/29/2021 10:55. The previous value was IS. Result changed by IF on 12/02/2021 07:38. The previous value was XM. Performed By: #### 8 [id number] ####[facility] [facility].[address] PRODUCT STATUS 2 RE Normal [facility] Comment on above: Result Comment: Resu lt changed by IF on 11/29/2021 07:53. The previous value was XM. Result changed by IF on 11/29/2021 10:55. The previous value was IS. Result changed by IF on 12/02/2021 07:38. The previous value was XM. Performed By: #### 8 [id number] ####[facility] [facility] [place] [address], [facility] UNIT ABO 1 O Normal [facility] Comment on above: Performed By: #### 8 6002 ####[facility] [facility] [place] [address], [facility] UNIT ABO 2 O Normal [facility] Comment on above: Performed By: #### 8 6002 ####[facility] [facility] [place] [address], [facility] UNIT ID 1 [id number] Normal [facility] Comment on above: Performed By: #### 8 6002 ####[facility] [facility] [place] [address], [facility] UNIT ID 2 [id number] Normal [facility] Comment on above: Performed By: #### 8 6002 ####[facility] [facility] [place] [address], [facility] UNIT RH 1 Positive Normal [facility] Comment on above: Performed By: #### 8 6002 ####[facility] [facility] [place] [address], [facility] UNIT RH 2 Positive Normal [facility] Comment on above: Performed By: #### 8 [id number] ####[facility] *MRSA/MSSA DNA NASALon 11-26 *MRSA/MSSA DNA NASAL Clinical Report: (D) Specimen: NASAL SWAB Collected: 11/26/2021 11:49 Status: Final Last Updated: 11/26/2021 20:24 MSSA DNA (Final) Negative MRSA DNA (Final) Negative Normal [facility] Comment on above: Performed By: #### 3 [id number] #### [facility] [address] *SARS-CoV-2 COVID-19on 11-26 SARS-CoV-2 (COVID-19) RNA YUSEF+probe Ql (Unsp spec) Not detected Normal Not Detected [facility] Comment on above: Order Comment: The A ptima SARS-CoV-2 assay is a nucleic acid amplification test intended for the qualitative detection of RNA from SARS-CoV-2 isolated and purified from nasopharyngeal (MEDICAL BILLING INSTRUCTOR),oropharyngeal (OP), nasal swab, sputum, and bronchoalveolar lavage (BAL) specimens from patients with signs and symptoms of infection who are suspected of COVID-19. Results are for the identification of SARS-CoV-2 RNA. The SARS-CoV-2 RNA is generally detectable during the acute phase of infection. The Aptima SARS-CoV-2 Assay on the Fontself and Fontself Fusion system is intended for use by laboratory personnel specifically instructed and trained in the operation of the [place] and Fontself Fusion system. The Aptima SARS-CoV-2 assay is only for use under the Food and Drug Administration Emergency Use Authorization. Testing is limited to laboratories certified under the Clinical Laboratory Improvement Amendments of 1988 (CLIA), 42 U.S.C. ???263a, to perform high complexity tests. Not Detected: Not detected does not preclude SARS-CoV-2 infection and should not be used as the sole basis for patient management decisions. Not detected results must be combined with clinical observations, patient history, and epidemiological information. Performed By: #### 3 [id number] #### [facility] [address] APTTon 11-26-2021 aPTT Coag (Bld) [Time] 33.5 s Normal 25.0-35.0 [facility] Comment on above: Result Comment: ALL RESULTS MUST BE INTERPRETED WITH RESPECT TO BLOOD DRAWING ARTIFACT OR DILUTION ERROR OF ANTICOAGULANT AT THE TIME OF SAMPLING. THE APTT SHOULD NOT BE USED TO MONITOR UNFRACTIONATED HEPARIN THERAPY, THIS LABORATORY NO LONGER HAS AN ESTABLISHED THERAPEUTIC RANGE BASED ON THE APTT. IT IS RECOMMENDED THAT THE UFH - HEPARIN ASSAY (ANTI-XA ACTIVITY) BE USED FOR THIS PURPOSE. Performed By: #### 5 [id number], [id number] ####[facility] BASIC METABOLIC PANELon 11-06 Calcium [Mass/Vol] 9.8 mg/dL Normal 8.6-10.3 [facility] Comment on above: Performed By: #### 6 2586 #### [facility] [address] [facility] [place] [address], [facility] Chloride [Moles/Vol] 96 mmol/L Low 98-107 [facility] Comment on above: Performed By: #### 6 2586 #### [facility] [address] [facility] [place] [address], [facility] CO2 [Moles/Vol] 29 mmol/L Normal 21-31 [facility] Comment on above: Performed By: #### 6 2586 #### [facility] [address] [place] [address], [facility] Creatinine [Mass/Vol] 1.04 mg/dL Normal 0.60-1.20 [facility] Comment on above: Performed By: #### 6 2586 #### [facility] [address] [facility] [address], [facility] eGFR- non- 50 ml/min/1.73sq m Abnormal > 60 [facility] Comment on above: Result Comment: Calc ulation may not be valid for patients over 70 years Performed By: #### 6 2586 #### [facility] [address] [place] [address], [facility] GFR/1.73 sq M.predicted chadwick g blacks MDRD (S/P/Bld) [Vol rate/Area] mL/min/{1.73_m2} Normal >60 [facility] Comment on above: Result Comment: Calc ulation may not be valid for patients over 70 years Performed By: #### 6 2586 #### [facility] [address] [place] [address], [facility] Glucose [Mass/Vol] 126 mg/dL High 70-100 [facility] Comment on above: Performed By: #### 6 2586 #### [facility] [address] [place] [address], [facility] Potassium [Moles/Vol] 3.6 mmol/L Normal 3.5-5.1 [facility] Comment on above: Performed By: #### 6 2586 #### [facility] [address] [place] [address], [facility] Sodium [Moles/Vol] 137 mmol/L Normal 136-145 [facility] Comment on above: Performed By: #### 6 2586 #### [facility] [facility] [address] [place] [address], [facility] Urea nitrogen [Mass/Vol] 16 mg/dL Normal 7-25 [facility] Comment on above: Performed By: #### 6 2586 #### [facility] [address] [place] [address], [place] CBC W/DIFFon 11-26-2021 ABS IMM GRANS 0.0 10*3/uL Normal 0.0-0.2 [facility] Comment on above: Performed By: #### 5 0103 ####[facility] [place] [address], [facility] ABS NEUTROPHILS 7.0 10*3/uL Normal 1.6-7.6 [facility] Comment on above: Performed By: #### 5 0103 ####[facility] [facility] [place] [address], [facility] Basophils (Bld) [#/Vol] 0.1 10*3/uL Normal 0.0-0.2 [facility] Comment on above: Performed By: #### 5 0103 ####[facility] [place] [address], [facility] Basophils/100 WBC (Bld) 1.2 % High 0.0-1.0 T [facility] Comment on above: Performed By: #### 5 0103 ####[facility] [facility] [place] [address], [facility] Eosinophils (Bld) [#/Vol] 0.3 10*3/uL Normal 0.0-0.5 [facility] Comment on above: Performed By: #### 5 0103 ####[facility] [facility] [place] [address], [facility] Eosinophils/100 WBC (Bld) 2.5 % Normal 0.0-6.0 [facility] Comment on above: Performed By: #### 5 0103 ####[facility] [facility] [place] [address], [facility] Erythrocyte distribution width (RBC) [Ratio] 12.3 % Normal 11.5-15.0 [facility] Comment on above: Performed By: #### 5 0103 ####[facility] [facility] [place] [address], [facility] Hematocrit (Bld) [Volume fraction] 48.0 % High 36.0-45.0 [facility] Comment on above: Performed By: #### 5 3 ####[facility] [facility] [place] [address], [facility] Hemoglobin (Bld) [Mass/Vol] 15.5 g/dL High 12.0-15. 0 [facility] Comment on above: Performed By: #### 5 0103 ####[facility] [facility].[address] IMMATURE GRANS 0.2 % Normal 0.0-1.0 [facility] Comment on above: Performed By: #### 5 0103 ####[facility] Lymphocytes (Bld) [#/Vol] 2.7 10*3/uL Normal 1.2-4.0 [facility] Comment on above: Performed By: #### 5 0103 ####[facility] [place] [address].[address] Lymphocytes/100 WBC (Bld) 24.0 % Normal 20.0-45.0 [facility] Comment on above: Performed By: #### 5 0103 ####[facility] MCH (RBC) [Entitic mass] 28.3 pg Normal 27.0-33.0 [facility] Comment on above: Performed By: #### 5 0103 ####[facility] [facility].[address] MCHC (RBC) [Mass/Vol] 32.3 g/dL Normal 32.0-35.0 [facility] Comment on above: Performed By: #### 5 3 ####[facility] MCV (RBC) [Entitic vol] 87.8 fL Normal 82.0-98.[address] [facility] Comment on above: Performed By: #### 5 3 ####[facility] [place] [address], [facility] Monocytes (Bld) [#/Vol] 1.0 10*3/uL Normal 0.1-1.0 [facility] Comment on above: Performed By: #### 5 0103 ####[facility] [place] [address], [facility] MONOS 8.6 % Normal 5.0-12.0 [facility] Comment on above: Performed By: #### 5 0103 ####[facility] [facility] [place] [address], [facility] Neutrophils/100 WBC (Bld) 63.5 % Normal 40.0-72.0 [facility] Comment on above: Performed By: #### 5 3 ####[facility] [facility] [place] [address], [facility] Nucleated RBC/100 WBC (Bld) [Ratio] 0 % Normal 0-0 [facility] Comment on above: Performed By: #### 5 0103 ####[facility] [facility] [place] [address], [facility] PLAT CNT 309 10*3/uL Normal 150-400 [facility] Comment on above: Performed By: #### 5 3 ####[facility] [facility] [place] [address], [facility] RBC (Bld) [#/Vol] 5.47 10*6/uL High 3.80-5.00 [facility] Comment on above: Performed By: #### 5 3 ####[facility] [facility] [place] [address], [facility] WBC (Bld) [#/Vol] 11.06 10*3/uL High 4.00-10.60 [facility] Comment on above: Performed By: #### 5 102 ####[facility] [facility] [place] [address], [facility] CHEST AND LATERALon 11-27-19 CHEST AND LATERAL [facility] Department of Radiology [address] [place] [address] Patient Name: RAMY MADRIGAL : 1935 Sex: F Age: Race: White Pt. Location: Patient Status: O Ordered Date: 11/26/2021 11:30:00 AM Completed Date: 11/26/2021 11:40 AM Requesting Provider: SINDHU CAN Attending Provider: SINDHU CAN Report Copy To: Signs & Symptoms: T82.190A [facility] compl of cardiac electrode, initial encounter I10 History: Comments: evaluate Exam: CHEST AND LATERAL EXAMINATION: CHEST AND LATERAL 11/26/2021 11:40 AM CLINICAL HISTORY: T82.190A [facility] compl of cardiac electrode, initial encounter I10 TECHNOLOGIST COMMENTS: Pt stated for pre op surgery and no chest complain. QUESTION FOR THE RADIOLOGIST: evaluate TECHNIQUE: AP(PA) and Lateral views were obtained. COMPARISON: Comparison is made with the chest radiographs of 08/06/2021. FINDINGS: Both lungs and costophrenic angles are clear. There is no evidence of pulmonary infiltrate or acute pulmonary pathology. The cardiac silhouette is within normal limits. A dual-chamber permanent pacemaker remains in satisfactory position. The trachea is in midline. The mediastinum is otherwise unremarkable. The bony rib cage is intact. The hemidiaphragms are normal in position. IMPRESSION: No evidence of pulmonary infiltrate or acute pulmonary pathology. Interval resolution of the mild vascular congestion. Electronically signed: Holden Houser. Transcribed by: [email or web address], User Resident: Electronically Signed by: HOLDEN MODESTO @ 11/26/2021 03:02 PM Normal [facility] Comment on above: Order Comment: Check Pacemaker/AICD Lead Position HEMOGLOBIN A1Con 11-26-2021 Glucose [Moles/Vol] 126 mmol/L Normal [facility] Comment on above: Performed By: #### 6 2586 #### [facility] [address] [employer] [address] HbA1c (Bld) [Mass fraction] 6.0 % Normal 4.0-6.0 [facility] Comment on above: Performed By: #### 6 2586 #### [facility] [address] [facility] [address] PROTHROMBIN TIMEon INR Coag (PPP) [Relative time] 0.98 {INR} Normal 0.91-1.16 [facility] Comment on above: Result Comment: ACCC P RECOMMENDED INR FOR WARFARIN THERAPY ------- CONDITION INR PROPHYLAXIS OF VENOUS THROMBOSIS 2-3 (HIGH-RISK SURGERY) TREATMENT OF VENOUS THROMBOSIS 2-3 TREATMENT OF PULMONARY EMBOLISM 2-3 PREVENTION OF SYSTEMIC EMBOLISM: 2-3 ACUTE MYOCARDIAL INFARCTION TISSUE HEART VALVES VALVULAR HEART DISEASE ATRIAL FIBRILLATION RECURRENT SYSTEMIC EMBOLISM MECHANICAL HEART VALVE 2.5-3.5 FROM: ORAL ANTICOAGULANTS. MECHANISM OF ACTION, CLINICAL EFFECTIVENESS, AND OPTIMAL THERAPEUTIC RANGE. CHEST 1995;108:231S-246S. Performed By: #### 5 7307, 60190 ####[facility] [place] [address], [facility] PT Coag (PPP) [Time] 13.0 s Normal 12.3-14.8 [facility] Comment on above: Result Comment: ALL RESULTS MUST BE INTERPRETED WITH RESPECT TO BLOOD DRAWING ARTIFACT OR DILUTION ERROR OF ANTICOAGULANT AT THE TIME OF SAMPLING. Performed By: #### 5 7307, 08792 ####[facility] [place] [address], [facility] TYPE AND SCREENon 11-26-2021 ABO INTERPRETATION O Normal [facility] Comment on above: Performed By: #### 6 2586 #### [facility] [address] [place] [address], [facility] RH INTERPRETATION Positive Normal [facility] Comment on above: Performed By: #### 6 2586 #### [facility] [address] [place] [address], [facility] URINALYSIS REFLEXon 11-27-19 22 Appearance (U) CLEAR Normal CLEAR [facility] Comment on above: Performed By: #### 3 0965 #### [facility] [address] [place] [address], [facility] Bilirubin Ql (U) Negative Normal NEGATIVE [facility] Comment on above: Performed By: #### 3 0965 #### [facility] [address] [place] [address], [facility] Color (U) STRAW Abnormal YELLOW [facility] Comment on above: Performed By: #### 3 0965 #### [facility] [address] [place] [address], [facility] EPIS NONE SEEN Normal FEW,OCC,NO NE SEEN [facility] Comment on above: Performed By: #### 3 0965 #### [facility] [address] [place] [address], [place] Glucose Ql (U) Negative Normal NEGATIVE [facility] Comment on above: Performed By: #### 3 0965 #### [facility] [address] [facility] [place] [address], [facility] Hemoglobin Ql (U) SMALL Abnormal NEGATIVE [facility] Comment on above: Performed By: #### 3 0965 #### [facility] [address] [facility] [place] [address], [facility] KETONE Negative Normal NEGATIVE [facility] Comment on above: Performed By: #### 3 0965 #### [facility] [address] [facility] [address], [facility] LEUK WEN Negative Normal NEGATIVE [facility] Comment on above: Performed By: #### 3 0965 #### [facility] [address] [facility]. [address] MUCUS THREADS OCC Abnormal NONE SEEN [facility] Comment on above: Performed By: #### 3 0965 #### [facility] [address] [facility] [place] [address], [facility] Nitrite Ql (U) Negative Normal NEGATIVE [facility] Comment on above: Performed By: #### 3 0965 #### [facility] [address] [facility]. [address] pH (U) 6.0 [pH] Normal 5.0-8.0 [facility] Comment on above: Performed By: #### 3 0965 #### [facility] [address] [facility] [place] [address], [facility] Protein Ql (U) Negative Normal NEGATIVE [facility] Comment on above: Performed By: #### 3 0965 #### [facility] [address] [place] [address], [facility] RBC 0-2 Abnormal NONE SEEN [facility] Comment on above: Performed By: #### 3 0965 #### [facility] [address] [facility] [place] [address], [facility] SPEC GRAV 1.002 Low 1.015-1.02 0 [facility] Comment on above: Performed By: #### 3 0965 #### [facility] [address] [facility] [place] [address], [facility] WBC UA NONE SEEN Normal NONE SEEN [facility] Comment on above: Performed By: #### 3 0965 #### [facility] [address] [place] [address], [facility] HEMOGLOBINon 11-19-2021 Hemoglobin (Bld) [Mass/Vol] 14.3 g/dL Normal 12.0-16. 0 [facility] Comment on above: Performed By: #### H GB #### [facility] [address] [address] [address] Cody Nicholson XR CHEST 2 Von 09-21-2021 XR CHEST 2 V EXAMINATION: XR CHEST 2 V HISTORY: Pacemaker electrode displacement ; evaluate placement of pacer leads COMPARISON: No relevant comparison available. FINDINGS: LUNGS: Hyperexpanded lungs suggestive COPD. No acute infiltrates. VASCULATURE: No increased pulmonary vasculature. PLEURA: No pneumothorax, effusion, or pleural thickening. CARDIAC: No cardiomegaly or cardiac silhouette abnormality. MEDIASTINUM: No visible mass or adenopathy. BONES: No fracture or visible bone lesion. OTHER: Cardiac pacer pack projecting over upper left hemithorax with intact leads with tip projecting over right atrium and right ventricle. IMPRESSION: 1. Interval cardiac pacer placement without suspicious abnormality. 2. No acute cardiopulmonary process. Electronically authenticated by: AMY DENNISON Date: 2021-09-21 14:14 Normal [facility] BASIC METABOLIC PANELon 04-0 Calcium [Mass/Vol] 7.9 mg/dL Low 8.6-10.3 [facility] Comment on above: Order Comment: No: D o not add to previous draw Performed By: #### 1 0070, 89585 ####[facility] [facility].[address] Chloride [Moles/Vol] 106 mmol/L Normal 98-107 [facility] Comment on above: Order Comment: No: D o not add to previous draw Performed By: #### 1 0070, 17772 ####[facility] [place] [address], [facility] CO2 [Moles/Vol] 23 mmol/L Normal 21-31 [facility] Comment on above: Order Comment: No: D o not add to previous draw Performed By: #### 1 69, 67206 ####[facility] [facility] [place] [address], [facility] Creatinine [Mass/Vol] 0.74 mg/dL Normal 0.60-1.20 [facility] Comment on above: Order Comment: No: D o not add to previous draw Performed By: #### 1 69, 05151 ####[facility] [facility] [place] [address], [facility] GFR/1.73 sq M.predicted [place] blacks MDRD (S/P/Bld) [Vol rate/Area] mL/min/{1.73_m2} Normal >60 [facility] Comment on above: Order Comment: No: D o not add to previous draw Result Comment: Calc ulation may not be valid for patients over 70 years Performed By: #### 1 69, 87167 ####[facility] [facility] [place] [address], [facility] GFR/1.73 sq M.predicted [place] non-blacks MDRD (S/P/Bld) [Vol rate/Area] mL/min/{1.73_m2} Normal >60 [facility] Comment on above: Order Comment: No: D o not add to previous draw Result Comment: Calc ulation may not be valid for patients over 70 years Performed By: #### 1 69, 48384 ####[facility] [facility] [place] [address], [facility] Glucose [Mass/Vol] 99 mg/dL Normal 70-100 [facility] Comment on above: Order Comment: No: D o not add to previous draw Performed By: #### 1 69, 09592 ####[facility] [facility] [place] [address], [facility] Potassium [Moles/Vol] 3.6 mmol/L Normal 3.5-5.1 [facility] Comment on above: Order Comment: No: D o not add to previous draw Performed By: #### 1 0, 67123 ####[facility] [facility], [place] [address] [place] [address] Sodium [Moles/Vol] 137 mmol/L Normal 136-145 [facility] Comment on above: Order Comment: No: D o not add to previous draw Performed By: #### 1 0, 65514 ####[facility] Urea nitrogen [Mass/Vol] 14 mg/dL Normal 7-25 [facility] Comment on above: Order Comment: No: D o not add to previous draw Performed By: #### 1 69, 90165 ####[facility] CHEST AND LATERALon 08-07-19 CHEST AND LATERAL [facility] Department of Radiology [address] [place] [address] Patient Name: RAMY MADRIGAL : 1935 Sex: F Age: Race: White Pt. Location: [id number] Patient Status: I Ordered Date: 08/06/2021 10:25:00 AM Completed Date: 08/06/2021 11:13 AM Requesting Provider: HARLEEN LAZARO Attending Provider: LITTLE HILL Report Copy To: Signs & Symptoms: Post Pacemaker/AICD Placement History: Comments: Check Pacemaker/AICD Lead Position Exam: CHEST AND LATERAL CHEST AND LATERAL 08/06/2021 11:13 AM CLINICAL INDICATIONS: Post Pacemaker/AICD Placement TECHNOLOGIST COMMENTS: Check Pacemaker/AICD Lead Position QUESTION FOR THE RADIOLOGIST: Check Pacemaker/AICD Lead Position PROTOCOL: AP(PA) and Lateral views were obtained. COMPARISON: None FINDINGS: Pacemaker on the left. No pneumothorax. Congested lung verduzco. Small effusions. Pacemaker leads appropriately positioned. IMPRESSION: No acute findings other than some mild congestion of the lung verduzco and early overload. Appropriate appearance of the pacemaker. Electronically signed: Omero Patten. Transcribed by: [email or web address], User Resident: Electronically Signed by: OMERO PATTEN @ 08/06/2021 11:14 AM Normal [facility] Comment on above: Order Comment: Check Pacemaker/AICD Lead Position MAGNESIUM BLOODon 08-06-2021 Magnesium [Mass/Vol] 1.8 mg/dL Low 1.9-2.7 [facility] Comment on above: Order Comment: No: D o not add to previous draw Performed By: #### 1 0070, 14184 ####[facility] [place] [address], [facility] CREATININE BLOODon Creatinine [Mass/Vol] 0.87 mg/dL Normal 0.60-1.20 [facility] Comment on above: Order Comment: No: D o not add to previous drawMissed Performed By: #### 6 9366 #### [facility] [address] [place] [address], [facility] GFR/1.73 sq M.predicted [place] blacks MDRD (S/P/Bld) [Vol rate/Area] mL/min/{1.73_m2} Normal >60 [facility] Comment on above: Order Comment: No: D o not add to previous drawMissed Result Comment: Calc ulation may not be valid for patients over 70 years Performed By: #### 6 2586 #### [facility] [address] GFR/1.73 sq M.predicted [place] non-blacks MDRD (S/P/Bld) [Vol rate/Area] mL/min/{1.73_m2} Normal >60 [facility] Comment on above: Order Comment: No: D o not add to previous drawMissed Result Comment: Calc ulation may not be valid for patients over 70 years Performed By: #### 6 2586 #### [facility] [address] Cardiovascular Lab Reporton 08-05-2021 Cardiovascular Lab Report [facility]: [id number] Department of Physician: Polo Talbot M.D. Medicine Service Date: 08/04/2021 Division of Birthdate: 1935 Cardiology Room #: [id number] Adult Cardiovascular Services [place] [address] Cardiovascular Laboratory Report INDICATIONS FOR PACEMAKER IMPLANTATION: The patient is an 86-year-old woman, who presented to the hospital with shortness of breath, lightheadedness and near syncope and was found to be in complete heart block. Because of this complete heart block, which is symptomatic, she will undergo implantation of a dual-chamber pacemaker. DESCRIPTION OF PROCEDURE: After written informed consent was obtained, she was brought to the pacemaker laboratory in the fasting state. A contrast injection for venography of the upper extremity was performed to delineate the course and patency of the left subclavian. Then, the left subclavicular fossa was prepped and draped in the usual manner and 1% Xylocaine solution infiltrated for local anesthesia. Utilizing percutaneous technique, the left subclavian was cannulated and under fluoroscopic guidance, guidewire was advanced to the level of the inferior vena cava to ensure intravascular placement. Following initial sharp incision, meticulous blunt dissection was employed to create a subfascial pocket. Via 2 breakaway introducer sheaths, Biotronik Solia active fixation leads were fluoroscopically guided into position in the low right ventricular septum and in the right atrial appendage. The active fixation coils of each were deployed and leads were sutured into place with a 0 silk suture. They were connected to a Biotronik Edora dual-chamber pacing system. Via off field telemetry, adequate sensing and pacing levels were determined. The right atrial lead had a pacing threshold of 0.8 V at 0.4 milliseconds pulse width with a P-wave amplitude of 5.7 mV and an impedance of 585 ohms. The right ventricular lead had a pacing threshold of 1.4 V at 1 milliseconds pulse width. There was after placement initial pacing, no R-waves to measure and the impedance was 760 ohms. The generator was sutured into place with a 0 silk suture and the pocket irrigated with an antibiotic solution. The fascia layer was closed with a continuous 2-0 Vicryl suture. The subdermal layer with interrupted 3-0 Biosyn sutures placed utilizing a buried knot technique and the skin surface closed with Dermabond glue. The wound was dressed with a Telfa pad and Tegaderm dressing. Sponge and needle counts were correct at the end of the case and prior to the procedure, the patient received 1 g of intravenous vancomycin as antibiotic prophylaxis. Conscious sedation was maintained throughout the case with intravenous midazolam and fentanyl. She was returned to the holding area in stable hemodynamic condition. IMPRESSIONS: 1. Complete heart block. 2. Dual-chamber pacemaker insertion. 3. Contrast injection for venography of the upper extremity. 4. Conscious sedation. 5. Fluoroscopy. Electronically Signed by: Polo Talbot M.D. 08/05/2021 12:20 P Polo Talbot M.D. Date Dict: 08/04/2021/02:40 P/Polo Talbot M.D. Date Trans: 08/05/2021 05:21 A/roya [id number] Normal [facility] Cardiovascular Lab Report [facility] MR #: [id number] Physician: Serena Wallis of [facility] Medicine Service Date: 08/04/2021 Division of Birthdate: 1935 Cardiology Room #: [id number] Adult Cardiovascular Services [facility] [facility] 3000 [facility]. [place] [address] Cardiovascular Laboratory Report PROCEDURES PERFORMED: 1. Selective coronary angiography. 2. Limited right common femoral artery angiography. FINAL IMPRESSIONS: 1. Significant, 60%, ostial left main stenosis. 2. Nonobstructive coronary artery disease of LAD, LCX, and RCA. RECOMMENDATIONS: 1. Recommend CT surgical consultation for possible bypass surgery given significant left main stenosis. 2. We would recommend stat CTA left chest to rule out aortic dissection as a cause of the patient's chest pain given wide pulse pressure and atypical presentation. 3. Optimization of medical management for coronary artery disease. 4. Further recommendations as per Inpatient Cardiology Consult Service. The patient will need close monitoring with telemetry given significant left main stenosis. DESCRIPTION OF PROCEDURE: After risks, benefits, and alternatives were explained, written informed consent was obtained from the patient's daughter given urgent nature of procedure and given that the patient had received sedation for a pacemaker placement earlier in the day. The patient was prepped and draped in usual sterile fashion. Using 1% lidocaine solution, local infiltration of anesthesia was achieved over the right femoral artery. Using a micropuncture kit and with ultrasound guidance, access to the right common femoral artery was obtained. Coronary angiography was performed using the JR4 and JL4 diagnostic catheters. After reviewing the images, it was elected to conclude the procedure. Overall, the patient tolerated the procedure well. There were no obvious complications. She is to be transferred to recovery in stable condition. FINDINGS: 1. AO 122/41 (69). 2. Left ventriculography. This was not performed. CORONARY ARTERIES: 1. Left main coronary artery: This rises from the left coronary cusp. It bifurcates into the left anterior descending, left circumflex coronary artery. There is significant 60% stenosis at the ostium of the left main coronary artery. 2. Left anterior descending: There is 40% stenosis in the proximal portion, followed by 50% stenosis in the mid vessel. 3. Left circumflex: There is 30% stenosis in the proximal vessel. 4. Right coronary artery: This rises from the right coronary cusp. This is a dominant vessel and gives rise to the RPDA and PLV. There is 50% stenosis in the proximal to midportion of the vessel. INDICATIONS: Chest pain. Electronically Signed by: Serena Palmer MD 08/08/2021 07:19 P Serena Palmer MD Date Dict: 08/04/2021/08:29 P/Serena Palmer MD Date Trans: 08/05/2021 04:59 A/roya [id number] 2 Normal [facility] TROPONIN-Ion 08-05-2021 Troponin I.cardiac [Mass/Vol] 0.06 ng/mL High 0.00-0 .04 [facility] Comment on above: Order Comment: Yes: Add to Previous draw if able Result Comment: REFE RENCE RANGES: 0.00 - 0.04 ng/ml NORMAL 0.05 - 0.50 ng/ml INDETERMINATE > 0.50 ng/ml CONSISTENT WITH AN M.I. Performed By: #### 6 2586 #### [facility] [address] BASIC METABOLIC PANELon 07-08 Calcium [Mass/Vol] 8.1 mg/dL Low 8.6-10.3 [facility] Comment on above: Order Comment: No: D o not add to previous draw Performed By: #### 0 0071, 99671, 77004, 39319 ####[facility] [place] [address], [facility] Chloride [Moles/Vol] 105 mmol/L Normal 98-107 [facility] Comment on above: Order Comment: No: D o not add to previous draw Performed By: #### 0 0071, 33112, 74637, 74080 ####[facility] [place] [address], [facility] CO2 [Moles/Vol] 23 mmol/L Normal 21-31 [facility] Comment on above: Order Comment: No: D o not add to previous draw Performed By: #### 0 0071, 58505, 31705, 74084 ####[facility]3000 [facility] [place] [address], [facility] Creatinine [Mass/Vol] 1.04 mg/dL Normal 0.60-1.20 [facility] Comment on above: Order Comment: No: D o not add to previous draw Performed By: #### 0 0071, 06834, 92154, 25302 ####[facility]3000 [facility] eGFR- non- 50 ml/min/1.73sq m Abnormal > 60 [facility] Comment on above: Order Comment: No: D o not add to previous draw Result Comment: Calc ulation may not be valid for patients over 70 years Performed By: #### 0 0071, 47743, 98801, 59778 ####[facility] [facility] [place] [address], [facility] GFR/1.73 sq M.predicted [place]adwick g blacks MDRD (S/P/Bld) [Vol rate/Area] mL/min/{1.73_m2} Normal >60 [facility] Comment on above: Order Comment: No: D o not add to previous draw Result Comment: Calc ulation may not be valid for patients over 70 years Performed By: #### 0 0071, 61337, 44749, 11482 ####[facility] [place] [address], [facility] Glucose [Mass/Vol] 108 mg/dL High 70-100 [facility] Comment on above: Order Comment: No: D o not add to previous draw Performed By: #### 0 0071, 84448, 27941, 04271 ####[facility]3000 [facility] [place] [address], [facility] Potassium [Moles/Vol] 4.1 mmol/L Normal 3.5-5.1 [facility] Comment on above: Order Comment: No: D o not add to previous draw Performed By: #### 0 0071, 69923, 29392, 58084 ####[facility] [facility], [place] [id number] [place] [address] Sodium [Moles/Vol] 135 mmol/L Low 136-145 [facility] Comment on above: Order Comment: No: D o not add to previous draw Performed By: #### 0 0071, 21476, 87849, 10019 ####[facility] [place] [address], [facility] Urea nitrogen [Mass/Vol] 29 mg/dL High 7-25 [facility] Comment on above: Order Comment: No: D o not add to previous draw Performed By: #### 0 0071, 75090, 30463, 23181 ####[facility] CTA CHESTon 08-04-2021 CTA CHEST [facility] Department of Radiology [address] [place] [id number] Patient Name: RAMY MADRIGAL : 1935 Sex: F Age: Race: White Pt. 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 CONTRAST: Contrast: OMNIPAQUE 350 (LOCM), 100 milliliter, Intravenous TECHNIQUE: Multidetector CT angiography axial slices of the chest were obtained with IV contrast. Multiplanar reformats, MIP, and volume rendered 3-D images were generated on a separate workstation and reviewed to further define anatomy and possible pathology. All CT scans at this facility use dose modulation, iterative reconstruction, and/or weight based dosing when appropriate to reduce radiation dose to as low as reasonably achievable. COMPARISON: None.. FINDINGS : Moderate bilateral pleural effusions. Severe calcified coronary arterial disease. Trace hemopericardium. Mild cardiomegaly. Dense mitral calcifications. Moderate atherosclerotic disease aorta and its branches. No acute aortic pathology. Patent great vessel. No pulmonary embolus. Moderate bilateral pleural effusions. Interstitial pulmonary edema. No pneumothorax. No acute findings of the visualized thoracic inlet, the upper abdomen, body wall. No aggressive osseous lesions. IMPRESSION: Severe calcified coronary arterial disease. Trace pneumopericardium. No acute aortic pathology. Moderate bilateral pleural effusions. Interstitial pulmonary edema. Electronically signed: Larry Holloway. Transcribed by: [email or web address], User Resident: Electronically Signed by: LARRY HOLLOWAY @ 08/04/2021 07:21 PM Normal [facility] Comment on above: Order Comment: Disse ction MAGNESIUM BLOODon 08-04-2021 Magnesium [Mass/Vol] 2.1 mg/dL Normal 1.9-2.7 [facility] Comment on above: Order Comment: No: D o not add to previous draw Performed By: #### 0 0071, 42021, 39824, 67291 ####[facility] TROPONIN-Ion 08-04-2021 Troponin I.cardiac [Mass/Vol] 0.21 ng/mL Critically high 0 .00-0.04 [facility] Comment on above: Order Comment: No: D o not add to previous draw Result Comment: M-CR ITICAL RESULT(S) REVIEWED, CALLED TO AND READ BACK BY RENU RALPH RN ON 08/04/2021 AT 18:26 REFERENCE RANGES: 0.00 - 0.04 ng/ml NORMAL 0.05 - 0.50 ng/ml INDETERMINATE > 0.50 ng/ml CONSISTENT WITH AN M.I. Performed By: #### 6 2586 #### [facility] [address] Troponin I.cardiac [Mass/Vol] 0.05 ng/mL High 0.00-0 .04 [facility] Comment on above: Result Comment: REFE RENCE RANGES: 0.00 - 0.04 ng/ml NORMAL 0.05 - 0.50 ng/ml INDETERMINATE > 0.50 ng/ml CONSISTENT WITH AN M.I. Performed By: #### 0 0071, 37590, 24634, 40887 ####[facility] TSH3 WITH REFLEX FT4on 08-04 TSH 3RD GENERATION 3.10 uIU/mL Normal 0.34-5.60 [facility] Comment on above: Performed By: #### 0 0071, 40108, 07971, 81204 ####[facility] APTTon 08-03-2021 aPTT Coag (Bld) [Time] 30.7 s Normal 25.0-35.0 [facility] Comment on above: Order Comment: No: D o not add to previous draw Result Comment: ALL RESULTS MUST BE INTERPRETED WITH RESPECT TO BLOOD DRAWING ARTIFACT OR DILUTION ERROR OF ANTICOAGULANT AT THE TIME OF SAMPLING. THE APTT SHOULD NOT BE USED TO MONITOR UNFRACTIONATED HEPARIN THERAPY, THIS LABORATORY NO LONGER HAS AN ESTABLISHED THERAPEUTIC RANGE BASED ON THE APTT. IT IS RECOMMENDED THAT THE [facility] - HEPARIN ASSAY (ANTI-XA ACTIVITY) BE USED FOR THIS PURPOSE. Performed By: #### 8 5499 #### [facility] [address] [place] [address], [facility] BASIC METABOLIC PANELon 03-2 Calcium [Mass/Vol] 8.9 mg/dL Normal 8.6-10.3 [facility] Comment on above: Order Comment: No: D o not add to previous draw Performed By: #### 1 0070, 24671, 00611, 85141 ####[facility] [place] [address], [facility] Chloride [Moles/Vol] 98 mmol/L Normal 98-107 [facility] Comment on above: Order Comment: No: D o not add to previous draw Performed By: #### 1 0070, 93431, 22353, 27552 ####[facility]3000 [facility] [place] [address], [facility] CO2 [Moles/Vol] 21 mmol/L Normal 21-31 [facility] Comment on above: Order Comment: No: D o not add to previous draw Performed By: #### 1 0070, 85941, 02920, 06081 ####[facility] [place] [address], [facility] Creatinine [Mass/Vol] 0.93 mg/dL Normal 0.60-1.20 [facility] Comment on above: Order Comment: No: D o not add to previous draw Performed By: #### 1 0070, 83307, 14100, 80953 ####[facility] [place] [address], [facility] eGFR- non- 57 ml/min/1.73sq m Abnormal > 60 [facility] Comment on above: Order Comment: No: D o not add to previous draw Result Comment: Calc ulation may not be valid for patients over 70 years Performed By: #### 1 0070, 89398, 26451, 12496 ####[facility] [place] [address], [facility] GFR/1.73 sq M.predicted [place] blacks MDRD (S/P/Bld) [Vol rate/Area] mL/min/{1.73_m2} Normal >60 [facility] Comment on above: Order Comment: No: D o not add to previous draw Result Comment: Calc ulation may not be valid for patients over 70 years Performed By: #### 1 0070, 08640, 31326, 38123 ####[facility] [place] [address], [place] Glucose [Mass/Vol] 136 mg/dL High 70-100 [facility] Comment on above: Order Comment: No: D o not add to previous draw Performed By: #### 1 0070, 26175, 10497, 22061 ####[facility] [place] [address], [place] Potassium [Moles/Vol] 3.1 mmol/L Low 3.5-5.1 [facility] Comment on above: Order Comment: No: D o not add to previous draw Performed By: #### 1 0070, 29674, 49120, 56001 ####[facility] [place] [address], [place] Sodium [Moles/Vol] 132 mmol/L Low 136-145 [facility] Comment on above: Order Comment: No: D o not add to previous draw Performed By: #### 1 0070, 75117, 71373, 39002 ####[facility] [place] [address], [place] Urea nitrogen [Mass/Vol] 22 mg/dL Normal 7-25 [facility] Comment on above: Order Comment: No: D o not add to previous draw Performed By: #### 1 0070, 08533, 03286, 35906 ####[facility] CBC W/DIFFon 08-03-2021 ABS IMM GRANS 0.1 10*3/uL Normal 0.0-0.2 [facility] Comment on above: Performed By: #### 8 5499 #### [facility] [address] [place] [address], [facility] ABS NEUTROPHILS 9.1 10*3/uL High 1.6-7.6 [facility] Comment on above: Performed By: #### 8 5499 #### [facility] [address] [place] [address], [facility] Basophils (Bld) [#/Vol] 0.0 10*3/uL Normal 0.0-0.2 [facility] Comment on above: Performed By: #### 8 5499 #### [facility] [address] [place] [address], [facility] Basophils/100 WBC (Bld) 0.3 % Normal 0.0-1.0 T jean [facility] Comment on above: Performed By: #### 8 5499 #### [facility] [address] [place] [address], [facility] Eosinophils (Bld) [#/Vol] 0.0 10*3/uL Normal 0.0-0.5 [facility] Comment on above: Performed By: #### 8 5499 #### [facility] [address] [place] [address], [facility] Eosinophils/100 WBC (Bld) 0.2 % Normal 0.0-6.0 [facility] Comment on above: Performed By: #### 8 5499 #### [facility] [address] Erythrocyte distribution width (RBC) [Ratio] 12.9 % Normal 11.5-15.0 [facility] Comment on above: Performed By: #### 8 5499 #### [facility] 3000 [facility] [address] Hematocrit (Bld) [Volume fraction] 38.3 % Normal 36.0-45.0 [facility] Comment on above: Performed By: #### 8 5499 #### [facility] 3000 [facility]. [address] Hemoglobin (Bld) [Mass/Vol] 12.9 g/dL Normal 12.0-15. 0 [facility] Comment on above: Performed By: #### 8 5499 #### [facility] [address] IMMATURE GRANS 0.5 % Normal 0.0-1.0 [facility] Comment on above: Performed By: #### 8 5499 #### [facility] [address] [place] [address], [facility] Lymphocytes (Bld) [#/Vol] 1.9 10*3/uL Normal 1.2-4.0 [facility] Comment on above: Performed By: #### 8 5499 #### [facility] 3000 [facility] [address], [facility] Lymphocytes/100 WBC (Bld) 15.7 % Low 20.0-45.0 [facility] Comment on above: Performed By: #### 8 5499 #### [facility] [address] [facility] [place] [address], [facility] MCH (RBC) [Entitic mass] 28.9 pg Normal 27.0-33.0 [facility] Comment on above: Performed By: #### 8 5499 #### [facility] [address] [facility] [address], [facility] MCHC (RBC) [Mass/Vol] 33.7 g/dL Normal 32.0-35.0 [facility] Comment on above: Performed By: #### 8 5499 #### [facility] 3000 [facility] [place] [id number], [facility] MCV (RBC) [Entitic vol] 85.9 fL Normal 82.0-98.0 T he [facility] Comment on above: Performed By: #### 8 5499 #### [facility] [address] [facility] [place] [address], [facility] Monocytes (Bld) [#/Vol] 1.2 10*3/uL High 0.1-1.0 [facility] Comment on above: Performed By: #### 8 5499 #### [facility] 3000 [facility] [place] [address], [facility] MONOS 9.5 % Normal 5.0-12.0 [facility] Comment on above: Performed By: #### 8 5499 #### [facility] [address] [facility] [place] [address], [facility] Neutrophils/100 WBC (Bld) 73.8 % High 40.0-72.0 [facility] Comment on above: Performed By: #### 8 5499 #### [facility] [address] [facility] [place] [address], [facility] Nucleated RBC/100 WBC (Bld) [Ratio] 0 % Normal 0-0 [facility] Comment on above: Performed By: #### 8 5499 #### [facility] [address] [facility] [address], [facility] PLAT CNT 222 10*3/uL Normal 150-400 [facility] Comment on above: Performed By: #### 8 5499 #### [facility] [address] [place] [address], [facility] RBC (Bld) [#/Vol] 4.46 10*6/uL Normal 3.80-5.00 [facility] Comment on above: Performed By: #### 8 5499 #### [facility] [address] WBC (Bld) [#/Vol] 12.32 10*3/uL High 4.00-10.60 [facility] Comment on above: Performed By: #### 8 5499 #### [facility] 3000 [facility]. [address] MAGNESIUM BLOODon 08-03-2021 Magnesium [Mass/Vol] 1.8 mg/dL Low 1.9-2.7 [facility] Comment on above: Order Comment: Check Pacemaker/AICD Lead Position Performed By: #### 1 0070, 58986, 45243, 67582 ####[facility] PHOSPHORUS BLOODon 2 Phosphate [Mass/Vol] 3.2 mg/dL Normal 2.5-5.0 [facility] Comment on above: Order Comment: No: D o not add to previous draw Performed By: #### 1 0070, 40507, 69673, 37637 ####[facility] PROTHROMBIN TIMEon 2 INR Coag (PPP) [Relative time] 1.12 {INR} Normal 0.91-1.16 [facility] Comment on above: Order Comment: No: D o not add to previous draw Result Comment: ACCC P RECOMMENDED INR FOR WARFARIN THERAPY ------- CONDITION INR PROPHYLAXIS OF VENOUS THROMBOSIS 2-3 (HIGH-RISK SURGERY) TREATMENT OF VENOUS THROMBOSIS 2-3 TREATMENT OF PULMONARY EMBOLISM 2-3 PREVENTION OF SYSTEMIC EMBOLISM: 2-3 ACUTE MYOCARDIAL INFARCTION TISSUE HEART VALVES VALVULAR HEART DISEASE ATRIAL FIBRILLATION RECURRENT SYSTEMIC EMBOLISM MECHANICAL HEART VALVE 2.5-3.5 FROM: ORAL ANTICOAGULANTS. MECHANISM OF ACTION, CLINICAL EFFECTIVENESS, AND OPTIMAL THERAPEUTIC RANGE. CHEST 1995;108:231S-246S. Performed By: #### 8 5499 #### [facility] [address] PT Coag (PPP) [Time] 14.4 s Normal 12.3-14.8 [facility] Comment on above: Order Comment: No: D o not add to previous draw Result Comment: ALL RESULTS MUST BE INTERPRETED WITH RESPECT TO BLOOD DRAWING ARTIFACT OR DILUTION ERROR OF ANTICOAGULANT AT THE TIME OF SAMPLING. Performed By: #### 8 5499 #### [facility] [address] TROPONIN-Ion 08-03-2021 Troponin I.cardiac [Mass/Vol] 0.09 ng/mL High 0.00-0 .04 [facility] Comment on above: Order Comment: No: D o not add to previous draw Result Comment: REFE RENCE RANGES: 0.00 - 0.04 ng/ml NORMAL 0.05 - 0.50 ng/ml INDETERMINATE > 0.50 ng/ml CONSISTENT WITH AN M.I. Performed By: #### 8 5499 #### [facility] [address] [place] [address], [facility] Troponin I.cardiac [Mass/Vol] 0.08 ng/mL High 0.00-0 .04 [facility] Comment on above: Order Comment: No: D o not add to previous draw Result Comment: REFE RENCE RANGES: 0.00 - 0.04 ng/ml NORMAL 0.05 - 0.50 ng/ml INDETERMINATE > 0.50 ng/ml CONSISTENT WITH AN M.I. Performed By: #### 1 0070, 59353, 53000, 54202 ####[facility] [place] [address], [facility] BASIC METABOLIC PANELon 03-0 BUN/CREATININE RATIO NOT APPLICABLE Normal 6-22 [facility] Comment on above: Performed By: #### 1 0165, 63518 #### [facility] [address], [address] [place] [address] Classroom Instructor: Trae Cruz MD Calcium [Mass/Vol] 10.2 mg/dL Normal 8.6-10.4 [facility] Comment on above: Performed By: #### 1 0165, 22504 #### [facility] [address], [address] [place] [address] Classroom Instructor: Trae Cruz MD Chloride [Moles/Vol] 98 mmol/L Normal 98-110 [facility] Comment on above: Performed By: #### 1 0165, 30972 #### [facility] [address], [address] [place] [address] Classroom Instructor: Trae Cruz MD CO2 [Moles/Vol] 32 mmol/L Normal 20-32 [facility] Comment on above: Performed By: #### 1 016, 67769 #### [facility] [place] [address] Classroom Instructor: Trae Cruz MD Creatinine [Mass/Vol] 0.81 mg/dL Normal 0.60-0.[address] [facility] Comment on above: Result Comment: For patients >49 years of age, the reference limit for Creatinine is approximately 13% higher for people identified as -Armenian. Performed By: #### 1 0165, 02342 #### [facility] [address], [address] [place] [address] Classroom Instructor: Trae Cruz MD eGFR NON-AFR. ESTONIAN 67 mL/min/1.73m2 Normal > OR = 60 [facility] Comment on above: Performed By: #### 1 0165, 02770 #### [facility] [place] [address] [place] [address] Classroom Instructor: Trae Cruz MD GFR/1.73 sq M.predicted [place] blacks MDRD (S/P/Bld) [Vol rate/Area] 77 mL/min/{1.73_m2} Normal > OR = 60 [facility] Comment on above: Performed By: #### 1 0165, 05265 #### [facility] [place] [address] Classroom Instructor: Trae Cruz MD Glucose [Mass/Vol] 106 mg/dL High 65-99 [facility] Comment on above: Result Comment: Fasting reference interval For someone without known diabetes, a glucose value between 100 and 125 mg/dL is consistent with prediabetes and should be confirmed with a follow-up test. Performed By: #### 1 0165, [id number] #### [facility] [place] [address] Classroom Instructor: Trae Cruz MD Potassium [Moles/Vol] 4.0 mmol/L Normal 3.5-5.[address] [facility] Comment on above: Performed By: #### 1 0165, [id number] #### [facility] [place] [address] Classroom Instructor: Trae Cruz MD Sodium [Moles/Vol] 140 mmol/L Normal 135-146 [facility] Comment on above: Performed By: #### 1 0165, [id number] #### [facility] [place] [address] Classroom Instructor: Trae Cruz MD Urea nitrogen [Mass/Vol] 16 mg/dL Normal 7-25 [facility] Comment on above: Performed By: #### 1 0165, [id number] #### [facility] [place] [address] Classroom Instructor: Trae Cruz MD TSH+FREE T4on 07-07-2021 Free T4 [Mass/Vol] 1.4 ng/dL Normal 0.8-1.8 [facility] Comment on above: Order Comment: FASTI NG:YES FASTING: YES Performed By: #### 1 0165, [id number] #### [facility] [place] [address] Classroom Instructor: Trae Cruz MD TSH Qn 0.79 m[IU]/L Normal 0.40-4.50 [facility] Comment on above: Order Comment: FASTI NG:YES FASTING: YES Performed By: #### 1 0165, [id number] #### [facility] [place] [address] Classroom Instructor: Trae Cruz MD BASIC METABOLIC PANELon 12-0 BUN/CREATININE RATIO NOT APPLICABLE Normal - [facility] Comment on above: Order Comment: FASTI NG:YES FASTING: YES Performed By: #### 1 0165 #### [facility] [place] [address] Classroom Instructor: Trae Cruz MD Calcium [Mass/Vol] 10.3 mg/dL Normal 8.6-10.4 [facility] Comment on above: Order Comment: FASTI NG:YES FASTING: YES Performed By: #### 1 0165 #### [facility] [place] [address] Classroom Instructor: Trae Cruz MD Chloride [Moles/Vol] 97 mmol/L Low 98-110 [facility] Comment on above: Order Comment: FASTI NG:YES FASTING: YES Performed By: #### 1 0165 #### [facility] [place] [address] Classroom Instructor: Trae Cruz MD CO2 [Moles/Vol] 29 mmol/L Normal 20-32 [facility] Comment on above: Order Comment: FASTI NG:YES FASTING: YES Performed By: #### 1 0165 #### [facility] [place] [address] Classroom Instructor: Trae Cruz MD Creatinine [Mass/Vol] 0.79 mg/dL Normal 0.60-0.[address] [facility] Comment on above: Order Comment: FASTI NG:YES FASTING: YES Result Comment: For patients >49 years of age, the reference limit for Creatinine is approximately 13% higher for people identified as -Armenian. Performed By: #### 1 0165 #### [facility] [place] [address] Classroom Instructor: Trae Cruz MD eGFR NON-AFR. ESTONIAN 69 mL/min/1.73m2 Normal > OR = 60 [facility] Comment on above: Order Comment: FASTI NG:YES FASTING: YES Performed By: #### 1 0165 #### [facility] [place] [address] Classroom Instructor: Trae Cruz MD GFR/1.73 sq M.predicted [place] g blacks MDRD (S/P/Bld) [Vol rate/Area] 80 mL/min/{1.73_m2} Normal > OR = 60 [facility] Comment on above: Order Comment: FASTI NG:YES FASTING: YES Performed By: #### 1 0165 #### [facility] [place] [address] Classroom Instructor: Trae Cruz MD Glucose [Mass/Vol] 97 mg/dL Normal 65-99 [facility] Comment on above: Order Comment: FASTI NG:YES FASTING: YES Result Comment: Fasting reference interval Performed By: #### 1 0165 #### [facility] [place] [address] Classroom Instructor: Trae Cruz MD Potassium [Moles/Vol] 3.8 mmol/L Normal 3.5-5.3 [employer] [facility] Comment on above: Order Comment: FASTI NG:YES FASTING: YES Performed By: #### 1 0165 #### [facility] [place] [address] Classroom Instructor: Trae Cruz MD Sodium [Moles/Vol] 138 mmol/L Normal 135-146 [facility] Comment on above: Order Comment: FASTI NG:YES FASTING: YES Performed By: #### 1 0165 #### [facility] [address] [place] [address] Classroom Instructor: Trae Cruz MD Urea nitrogen [Mass/Vol] 17 mg/dL Normal 7-25 [facility] Comment on above: Order Comment: FASTI NG:YES FASTING: YES Performed By: #### 1 0165 #### [facility] [address] [place] [address] Classroom Instructor: Trae Cruz MD MAGR Postoperative Recordon 11-06-2020 MAGR Postoperative Record MAGR Phase II Record Summary Primary Physician: CARMELITA YOUNG Finalized Date/Time: 11/06/20 07:41:53 Pt. Name: ROHAN RAMYAdela Willis./Sex: 1935 FEMALE Med Rec #: [id number] Physician: CARMELITA YOUNG Financial #: [id number] Pt. Type: O Room/Bed: [facility] Admit/Disch: 10/23/20 05:52:00 - 10/27/20 14:23:00 Institution: Phase II Case Times MAGR Pre-Care Text: Patient is free from s/s of injury. Patient remains free from compromised physical state related to surgery or anesthesia. Patient comfort maintained. Patient/family verbalize understanding of discharge instructions. Entry 1 In PACU II 10/23/20 13:30:00 Discharge from PACU 10/23/20 15:50:00 II Last Modified By: Giselle Mayer RN 11/06/20 07:41:48 Post-Care Text: The patient remains free from s/s of injury. Patient's vital signs stable, circulation maintained, return to preop mental and physical status, opsite/dressing intact, minimal or absent nausea and vomiting, tolerates po intake. Patient verbalizes adequate pain control. Patient/family express understanding of discharge instructions. General Comments: care per 2 [facility] Finalized By: Giselle Mayer RN Document Signatures Signed By: Giselle Mayer RN 11/06/20 07:41 Normal [facility] MAGR Intraoperative Recordon 11-05-2020 MAGR Intraoperative Record MAGR Intra-Op Record Summary Primary Physician: CARMELITA YOUNG Finalized Date/Time: 11/05/20 10:46:17 Pt. Name: RAMY MADRIGALRADHA Barros/Sex: 1935 FEMALE Med Rec #: [id number] Physician: CARMELITA YOUNG Financial #: [id number] Pt. Type: O Room/Bed: [facility] Admit/Disch: 10/23/20 05:52:00 - 10/27/20 14:23:00 Institution: Case Times MAGR Entry 1 Patient In Room Time 10/23/20 07:39:00 Out Room Time 10/23/20 12:14:00 Anesthesia Start Time 10/23/20 07:39:00 Stop Time 10/23/20 12:14:00 Surgery Start Time 10/23/20 08:36:00 Stop Time 10/23/20 12:07:00 Last Modified By: Lynn Boyle RN 10/23/20 12:23:10 Case Attendance MAGR Entry 1 Entry 2 Entry 3 Case Attendee CARMELITA YOUNG PA-C, Robbie Madden MD Role Performed Surgeon - Primary Physican Buyer Agent Anesthesiologist of Record Time In 10/23/20 07:39:00 10/23/20 07:39:00 10/23/20 07:39:00 Time Out 10/23/20 12:14:00 10/23/20 12:14:00 10/23/20 12:14:00 Procedure Arthroplasty Knee Arthroplasty Knee Arthroplasty Knee Total(Right) Total(Right) Total(Right) Last Modified By: Lynn Boyle RN, Stephanie RN Sauer, Stephanie RN 10/23/20 12:23:15 10/23/20 12:23:15 10/23/20 12:23:15 Entry 4 Entry 5 Entry 6 Case Attendee Lynn Boyle RN, RN, Amparo Malcolm Role Performed Care Clinician Care Clinician Assistant Elementary Teacher Time In 10/23/20 07:39:00 10/23/20 07:39:00 10/23/20 07:39:00 Time Out 10/23/20 12:14:00 10/23/20 12:14:00 10/23/20 12:14:00 Procedure Arthroplasty Knee Arthroplasty Knee Arthroplasty Knee Total(Right) Total(Right) Total(Right) Last Modified By: Lynn Boyle RN, Stephanie RN Sauer, Stephanie RN 10/23/20 12:23:15 10/23/20 12:23:15 10/23/20 12:23:15 Entry 7 Entry 8 Case Attendee Enedina MORALEZ, Ashlie Deleon Role Performed Scrub Personnel Toddler Caregiver Time In 10/23/20 07:39:00 10/23/20 09:00:00 Time Out 10/23/20 12:14:00 10/23/20 10:00:00 Procedure Arthroplasty Knee Arthroplasty Knee Total(Right) Total(Right) Last Modified By: Lynn Boyle RN, Stephanie RN 10/23/20 12:23:15 10/23/20 12:23:15 General Comments: AMOS ARIANA-GORDY Surgical Procedures MAGR Pre-Care Text: A.20 Verifies operative procedure, surgical site, and laterality Im.150 Develops individualized plan of care Entry 1 Procedure Arthroplasty Knee Total Primary Procedure Yes Primary Surgeon CARMELITA YOUNG Right Surgeon Comment RIGHT TOTAL KNEE Start 10/23/20 08:36:00 POSSIBLE STEMS AND AUGS POSSIBLE PATELLA AUGMENT SYSYEM - GORDY Stop 10/23/20 12:07:00 Anesthesia Type General Surgical Service Orthopedics Wound Class Clean Technique Details Closure Technique Primary Entire procedure No was performed via laparoscope or robotic assistance Last Modified By: Charisse Santiago RN 11/05/20 10:46:13 Post-Care Text: O.730 The patient's care is consistent with the individualized perioperative plan of care General Case Data MAGR Pre-Care Text: A.350.1 Classifies surgical wound Entry 1 Case Information OR MAGR OR 05 Case Level Level 5 Wound Class Clean Specialty Orthopedics ASA Class 2 Diagnosis Preop Diagnosis DJD RIGHT KNEE Postop Same As Preop Yes Postop Diagnosis DJD RIGHT KNEE Blunt or No Is the procedure No penetrating injury considered occured prior to Emergent/Urgent? the start of the procedure: Last Modified By: Lynn Boyle RN 10/23/20 09:29:32 Post-Care Text: O.760 Patient receives consistent and comparable care regardless of the setting Time Out MAGR Entry 1 Time out date/time 10/23/20 08:32:00 All team members Yes have introduced themselves by name and role Surgeon, Yes Surgeon reviews Yes anesthesia, nurse critical or confirm patient, unexpected steps, site, procedure operative duration, anticipated blood loss Anesthesia team Yes Nursing team Yes reviews any reviews sterility patient-specific (including concerns indicator results) and equipment issues/concerns Antibiotic Antibiotic Yes Administration Time 07:40 prophylaxis given within the last 60 minutes Is essential Yes imaging displayed? Last Modified By: Lynn Boyle RN 10/23/20 09:30:08 Patient Positioning MAGR Pre-Care Text: A.280 Identifies baseline musculoskeletal status Im.40 Positions the patient Im.80 Applies safety devices Entry 1 Procedure Arthroplasty Knee Body Position Supine Total(Right) Left Arm Position Extended on padded arm Right Arm Position Extended on padded arm board board Left Leg Position Extended Right Leg Position Held on field Feet Uncrossed? Yes Press Points Checked Yes Positioning Device Arm Boards, Arm Strap, Outcome Met (O.80) Yes Pillow, Safety Strap Last Modified By: Lynn Boyle RN 10/23/20 09:30:32 Post-Care Text: E.290 Evaluates musculoskeletal status O.80 Patient is free from signs and symptoms of injury relat (more content not included)... Normal [facility] Coding Summaryon 11-02-2020 Coding Summary HTMLBase 64 VixcybweYDm5zXq+PGh lYWQ+QM2LCQExV78dxC LnfR6MJ2hFTM5JTQMYJ KWQHN6WEW1qyXQ9TPkm F7VveaFs OgxvbSWgLL40OJu5JTR 0wFwzDQcdcY4uxAJtT8 g0OlCoMQ53vP07OUwxT NRsAoH0XyWasvpblCHd B2bcVfXipCHjGuu+PHR hYmxlIHdpZHRoPScxMD YgHcFssXltXE8wTr4tD GVyLWNvbGxhcHNlOiBj f9suEXLlPRtlZI7oyZi hM3IjcMN5LSSvx2k6Iv 48dHI+FXXvVJH5pTjwI Cvls445EzRxf0cyFEP5 xXYnBSljBZW8Y47gs5U 2GHDpZAQhEPN0uTU9xM 5feBtydjlaQ0LgiOMnH pB2LYB1dYFgvW3urAag sropkY7yHrk+O07QUH3 PTHMAAQ6HFix1O3WfMx wvdHI+RQ20ATCpYC78n YMkpPVih7lwmEc5BqMg PQCuDGW1qNzzECpox4S rUYSsP16ylBKpk6J2MO OmyKfzzOUsQcMooMM0r D2nHSathnupd7yrhyew Zcloi2xtcp63kF71F79 wIPpoAJMeGEY7GPGhHI XtpPbogw8ygH8xWl4+I Oqjh0mep3pouTj1LbJt NENqkiDyuInqVNH0x2X wVj30O3NuySgov4OzLd m2pv91nBCqx6U0iYO2E XmjVMDxhX0wTGkrZrR7 AKFxXvUqhT93pLVdLZs iZw3bzXiieEooKY6yHE IlfoptYHSfjG2yVGXse UDvjHrvAI5pUYPmvary w407MeLvBNN9NTUehBD fB3EinJ5yGzYjNNYmKZ ZdY6EzsFOdEApwT100R MuwMpR1GKJfpiElS1Zf GWFftEieOvK2b9T6Ju6 Es1UrtpbpBPZ1JJhvDP R9TbF9SmDqUmC1N4DiG ti5BRLvzKopFU9xT7Ex OEEnsnjiwcfhqID8XIT uNPHgsE50eCGlINymMl 0cn6X1r595VAWvCPWuj G76Wa8blPsrZESjcNOS vU0rvidmk6djfqglIiD hVGUwWMn7PQn8XIHtfV voRaQySHW9TdT8LAC7k LBbbQ2rrYropnckjY4b Oyc+D77bhA7jQED5NFS 1hnsfQXQvhrIkIQ44CR 88Y4UvGyqqwFKswDS+P SDcwbGgzVxjRK7xGuWs c8pav7CbWIrsZ2MrWIL cQTkmZbo3UUObFTS4fW E9sY7sTIHsSCprq1C5k NU1O9JpioOuop0zh9nz WOGnVNloN43kgEBim6Q 9OQXnaTW3VRYgiWjfEg YzlU30Ihu+PGNvbGdyb 3HpXkatr2lnp0wceCx2 IjMwJSIgdmFsaWduPSJ 5d6NfPy34B23nQVgfRZ RoPSIxNSUiIHZhbGlnb n5aoX5sYp8+PGNvbCB3 eAY4fH6nKRWlKqW3OCq pC394JfMkrDDnErnfw1 itv6kzoHl5OqYaHBCxk hSobFfkDBO2a0OpKk82 S38gPEizTEOmBYBbWKS dDBPryRoxgs0jwQ3hVi 8+PA2oo9iaqo54sW71q HI+OKXuPTH7bYatWHtz NIUgaW9yHXbcNmL7ZKI kYqTdcZ96xMKuDLlsVt 6rgAdyxZbpIK5kSWNsy mrqh164VmKvt3igIPQu tDZcQNgoWGG0V14dj7M 7YZSzHDQlUUM6lIS6nP 1hbGlnbjogbGVmdDsgd iDlxSkpJFkcJOljX408 IHRvcDsnPlBhdGllbnQ tVuPqQBv9Z5TmQac7RQ XaqWmgIO9mvRMjUEhlM o4evGkoxXebDT0mPRWq fkukj295NeBvn3ngABT mcZGqZFizUKK5T37ml2 O9TPTeBXXkHKY8tAC7t L5geEikezkbuTZtxUmn sdLtrMxiADunUVsiL72 6IHRvcDsnPkJpcnRoIE SgfKV4TV08UH22xFAwq 2U1dRP7A1RmCPGlunsp xlzmoWJ4ISMtFLDfcL2 2Ac6nxWxrCl4fBUKmWC I9BQVyfGQhD8KjyW3cE dHgQKZyVUQzC9GwiAVz TXzqR788QSgxJbZ0HQN rhqAmV8OkFNSknEyuSx V0z2H4Jy7ZK1W1SH52J G74tZKxl6Y7kOA9D6Eo TCQkmksmnjizrGX9VRH cDKDjwN68Ho0crWypXw 4rXOYxULD9KUZpgBLhW 0XftU5zRmXbZVBfLJZm L5ZxnLGsNPexT525LZt mItY9MWVrdrCwS1BiNA CkpFscOmT2y9J2Mo5HA Sl0PL48LW12yJBgi7K4 bXG6I0UgJJYywcjvvbu vrKR1OYJhNAMsxC98Gd 9lgWbpPl2rGCBkNGR6X EXjhMAlF0TphO0tNnHs OYSxSDWmH4SpjLMyKAw iJ151CTboGwS0OAXupv VhF2OaWFMcjNfcQzX1p 5B4Ic8JPKQeIH47SLN8 lDK6JH01NK63F0EuHif vdGFibGU+PHRhYmxlIH dpZHRoPScxMDAlJyBzd CodVV1mPt5oBYFqIEHo kLuwwNTuKxJkj0thMFG kUMkkUN9pqZhtN9YatC G6FKBpj0m9Ya85V59rO 3JvdXA+YFDgxYI5hHU8 rT8zToTiThA8DXdhL37 7JbZmiEYwSoutf2vcc0 vxaAp7IaD7ZSGkrqMwj UqbVAT3d6IgVt25W11d IHdpZHRoPSIxNSUiIHZ dlNbogb7mmS8iNn5+PG FoyPU7hID8mR4gQeWvE oD5DTvpT424EmThnDJe Ejson0rrx1ysjNj4AfM nSEYcnwSefXwbECV3g0 QzMb84E4BvwQomu4LiU ur8kz59wOIpv8I6iFF0 V0KzDDFseiguyKJuiLy kRX5bPKNzzmdvTNJdlW 3cWIVmM5w0OhBmSgB7I VyvG9GohlY0GJHzmXQw AViyQIB0A68ir7B6FYS zVEMqTKN3qQP1tW1mbZ lnbjogbGVmdDsgdmVyd HajMIznCMkhZ902PZKh yOpeZPLjgX9nMKIiaVI jtEpjKO2fTCMafpiaBo uNEh6PEziqPYQAE6KGZ MYdKNQSAb8MBU44JA36 lBKlo8E2rMO4J7HdIGY thcyeezvpiTF2USVqZJ WzvJ81fZAuMYjoCa8di 0G5k046YMYcFHZjkI95 Qf8gwJogRXAcdGSLvF8 znvrwq1inqzbtPyPzXB EwWUe3UAg7VBJhhPzkG pZiJYU0RpN7VCH1fJEt dZ3yaUlmyviqtS9zCax +MTIvMDUvMTkzNzwvdG Q+NZAvFRO3qMqiWOfxT BVhfK3xSAAsB0y2MlUl PhU8EFsuO6PlTSXlbhv xNl32gB8nHjFuXoU8RJ dcO2GvoaA8FFUbiFPvN DgbRUN6H97jg9Q9MUVf KEAgSOF5dUY3yD9rlWf nbjogbGVmdDsgdmVydG riQPenJQurA849ZTPid EexGinrQVlyDFLzUE48 DG36gGHdh1R8fKZ1W3G mZJFtgoudieqouQZ8JM LrYTTomZ82zNQsUJdzK g6lk3J1w361YMYsEFQk aW00Lb9dbSuqRVRwnXJ JhY5yloesw3ukunxtGw CwAJLkDYk5NRc9VCTxq TzpDdEjPQC8OnT9HDC9 lJWvxE9jhCkyhswmhW1 wOyc+ZeXRXOdMDR80MR 99eSKrb3D3qTL0S7LrN OOvoiahamuavNR0RQKg CPGfjW17bBZhLGviMr2 yc9X5s867IPSnFRFbgX 79Qj7tiXghTWTlqTLWb A5jyxacy1yxskopBaYa OBMbZKw7EVc3XWFukNj rFjLvXMM0LnZ2VQE8aI GbdN0ufBblgwkbqM1iZ yc+V1hgcefzIHM5P5Eo PjwvdHI+HQ53MCSvZK2 5wDUqpXWeo4jemIm5Yk VxOPIaQXJ7lSrsNBbnj 0ArEGZpH00dqIWqx3D3 IGNvbGxhcHNlOyBlbXB 1nO8rUIfkcxxtx4tdin hqZgcgy1uhfm29xQ30Z 29sIHdpZHRoPSIzMCUi SVGyjWftmc3ihO5wGf2 +XCFirWQ6hJT5qH0iGa DfMeJ5DAvfK800YqXty WQbSpdre4kgp7uonBe6 IjIwJSIgdmFsaWduPSJ 7r4BiMl12N67lOOngAV RoPSIyMCUiIHZhbGlnb z4jcO5jPc3+QT0sz8nc sc97lX73jYQ+PHRkIHN 2oXjsEBbtYNAfyH8pGZ hhVsB3AUEgDjOxpV64n LJxQInhBj0qcUcbfJqg ED1kVUNoblonq550VjE xa7loKSKpsUDtTQudTD W6K11ve6D2GSEcKQJoW XM7iYZ3xN6inSjjrxzp bGVmdDsgdmVydGljYWw gMHgcL771XJAwaPvcYh OdeLHuW4bqhiWVDD6aF jwvdGQ+ZQHpIWI0aOyp YUncZDKgbR6nBNPrK2w 6ZhUxRtF0JGbnC0Negv H1UGBerZAkNCGpxCEUd Q5mtxdfn3gtnfkjXjMd YKKzAQs5OLe2GPOeiFa jKiVtAXO3GdZ7EPQ6uA QdcR4yvLlvmwkajZ9gN yc+RklOOjwvdGQ+PHRk TIO2qHwlTBqtVKLwoW1 dVUImC2e0AxRdUyN9ZS haA7JnaoY1WQDbyYEeA TZxgUSXyW5viwgmt8lk wcnmQxEcDKCpJHr1BFq 4DWTtsWyeOkYmCGD0Tl Q0UBD5nWNufM8zwDhuc memlY4sYoo+TVJOOjwv dGQ+HSSrNND6sItzIRe eZYQtqZ7pFZVvS8i2Gi LsHvL8QLgjR8KojiL6R HVjtZJqIXZkbQTJlY4d rzyji5iyevnmKuScFWM kBIs8EVl8TGBilXapEe GhZQB5PgG6YWH1zHMcm X2wiIxzvhwwkO0nMtp+ EFS4IBA7KQ77UN12M1K yPjwvdGFibGU+PHRhYm xlIHdpZHRoPScxMDAlJ hXprOlwNL4xNl1qHVVi LWN (more content not included)... [facility] Consent Formson 11-02-2020 Consent Forms [id number] 02#1.00OTGTIFF [facility] Medicare Messageon Medicare Message [id number] 85#1.00OTGTIFF [facility] Progress Note - Nurseon - Progress Note - Nurse [id number] 34#1.00OTGTIFF Normal [facility] Inpatient Patient Summaryon 10-31-2020 Inpatient Patient Summary [place] [id number] [place] [id number] Patient Discharge Instructions Name: RAMY MADRIGAL : 1935 Patient Address: [address] [place] [address] Primary Care Provider: Name: ESTELAAGATASEVEN After you are discharged if you find you have any questions, please, call [phone] ext [phone] to speak to a nurse. 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 If you or anyone you know is experiencing suicidal thoughts, mental health, alcohol and/or drug addiction problems; contact the [facility] 28/11 Crisis Hotline -text 4HMPX to 539964. If you received any narcotics, sedation, or any other medication that causes drowsiness for the next 24 hours, unless otherwise directed: ? Do not drive a car. ? Do not operate machinery such as power tools, lawn mowers, drills, sewing machines, or stoves ? Avoid alcoholic beverages and drugs for allergies, nerves, or sleep ? Do not make important personal or business decisions or sign any legal documents [facility] would like to thank you for allowing us to assist you with your healthcare needs. The following includes patient education materials and information regarding your injury/illness. RAMY MADRIGAL has been given the following list of follow-up instructions, prescriptions, and patient education materials: Follow-up Instructions With: Address: [address]: [address] [place] [address] Business (1) Comments: Call for follow up appointment Medications During the course of your visit, your medication list was updated with the most current information. The details of those changes are reflected below: Medications That Were Updated - Follow Below Instructions Other Medications Updated: calcium carbonate (Oyster Shell Calcium 500) 500 Milligram Oral 2 times a day. Medications to Continue That Have Not Changed Other Medications ascorbic acid (ascorbic acid 500 mg oral capsule) 1 cap(s) Oral every day. aspirin (aspirin 81 mg oral tablet) 1 tab(s) Oral 2 times a day. cholecalciferol (Vitamin D3 1000 intl units oral capsule) 2 cap(s) Oral every day. cyanocobalamin (Vitamin B-12 100 mcg oral tablet) 1 tab(s) Oral every day. docusate (docusate sodium 100 mg oral tablet) 1 tab(s) Oral 2 times a day. ferrous sulfate (ferrous sulfate 325 mg (65 mg elemental iron) oral tablet) 1 tab(s) Oral 2 times a day. levothyroxine (levothyroxine 75 mcg (0.075 mg) oral tablet) 1 tab(s) Oral every day. liothyronine (liothyronine 5 mcg oral tablet) 1 tab(s) Oral every day. lovastatin (lovastatin 40 mg oral tablet) 1 tab(s) Oral once a day (at bedtime). metoprolol (Metoprolol Succinate ER 50 mg oral tablet, extended release) 1 tab(s) Oral every day. multivitamin with iron (Poly Iron 150 Forte oral capsule) 1 cap(s) Oral every day. omeprazole (PriLOSEC 10 mg oral delayed release capsule) 1 cap(s) Oral every day. potassium chloride (potassium chloride 20 mEq oral tablet, extended release) 1 tab(s) Oral 2 times a day. zolpidem (Ambien 10 mg oral tablet) 1 tab(s) Oral once a day (at bedtime) as needed as needed for insomnia. No Longer Take the Following Medications acetaminophen (acetaminophen 1,000mg/100ml IVPB Soln) 160 Milligram Oral Every 6 hours as needed as needed for pain. amLODIPine (amLODIPine 10 mg oral tablet) 1 tab(s) Oral every day. clindamycin (clindamycin 600 mg/50 mL-NaCl 0.9% intravenous solution) 600 Milligram Intravenous every 8 hours. hydroCHLOROthiazide (hydroCHLOROthiazid e 25 mg oral tablet) 1 tab(s) Oral every day. loratadine (Allergy Relief) 1 tab(s) Oral every day. omega-3 polyunsaturated fatty acids (Arctic Empires Bounty Red Krill Oil 500 mg oral capsule) pyridoxine (Vitamin B6 100 mg oral tablet) 1 tab(s) Oral every day. It is important to always keep an active list of medications available so that you can share with other providers and manage your medications appropriately. As an additional courtesy, we are also providing you with your final active medications list that you can keep with you. ascorbic acid (ascorbic acid 500 mg oral capsule) 1 cap(s) Oral every day., post op medication aspirin (aspirin 81 mg oral tablet) 1 tab(s) Oral 2 times a day. calcium carbonate (Oyster Shell Calcium 500) 500 Milligram Oral 2 times a day., post op medication cholecalciferol (Vitamin D3 1000 intl units oral capsule) 2 cap(s) Oral every day., Changed to 2000 units daily post op, previously at home was 1000 units every other day. cyanocobalamin (Vitamin B-12 100 mcg oral tablet) 1 tab(s) Oral every day. docusate (docusate sodium 100 mg oral tablet (more content not included)... [facility] Pharmacy Noteon 10-31-2020 Pharmacy Note I have reviewed this patient's current medication list including prescription medications, OTC products, vitamins and supplements for the following: Med Rec: Previously completed Renal Function: Estimated CrCl:53 ml/min Automatic pharmacy renal dose adjusted medication(s): None currently Action: None required _ p Anticoagulation or Prophylaxis: Aspirin per Ortho I Action: none required Antibiotics: None Currently _ Pain Management: Scheduled non-narcotic: Scheduled narcotic: prn narcotic pain medication(s): Oxycodone/APAP_ __ prn non-narcotic pain medication(s): __ Action: _ Drug-Drug Interaction: Action: Other: _Possible discharge home with calcium supplement added. No other new meds [Electronically Signed on: 10/31/2020 11:41 EDT] __ Andre Tinoco RPh [Verified on: 10/31/2020 11:41 EDT] __ Andre Tinoco RPh [facility] Nutrition Noteon 10-30-2020 Nutrition Note Piece Cutter unable to meet w/ Pt during Pts Swing bed/TCU Interdisciplinary Meeting; spoke w/ Pt today. Pt extremely complimentary to the food, staff and experience so far as a whole. Pt also very much appreciates that she can talk about the importance of her ivana with staff and the doctors without feeling uncomfortable. Pt is eating too well per Pt with intake records reflecting 75-100%. Intake of supplements still in place to help meet increased nutritional needs for healing. Pt did report issues with constipation, currently and in the past after surgeries, however, reported that the prunes/prune juice finally worked this morning and she had a large BM feeling completely cleaned out. Pt denied having any concerns or questions of marketing underwriter at this time. Will continue to monitor. [facility] Pharmacy Noteon 10-30-2020 Pharmacy Note I have reviewed this patient's current medication list including prescription medications, OTC products, vitamins and supplements for the following: Med Rec: Previously completed Renal Function: Estimated CrCl:53 ml/min Automatic pharmacy renal dose adjusted medication(s): None currently Action: None required _ p Anticoagulation or Prophylaxis: Aspirin per Ortho I Action: none required Antibiotics: None Currently _ Pain Management: Scheduled non-narcotic: Scheduled narcotic: prn narcotic pain medication(s): Oxycodone/APAP_ __ prn non-narcotic pain medication(s): __ Action: _ Drug-Drug Interaction: Action: Other: _ [Electronically Signed on: 10/30/2020 11:06 EDT] __ Andre Tinoco RPh [Verified on: 10/30/2020 11:06 EDT] __ Andre Tinoco RPh [facility] Progress Note - Nursecathy 10-07 Progress Note - Nurse Drsg. change right knee. Incision well approximated, johnathon intact. Redness et edema surround site. No active drng. Primapore to site. [Electronically Signed on: 10/30/2020 19:32 EDT] __ Shari Reynolds RN [Verified on: 10/30/2020 19:32 EDT] __ Shari Reynolds RN Normal [facility] .Auto Diff 1on 10-29-2020 Auto [place] % 9 % Normal 1-12 [facility] Comment on above: Performed By: #### [id number] ####[facility] (DEFAULT)[address] [place] [address] Baso Abs# 0.1 x10 Normal 0.0-0.2 [facility] Comment on above: Performed By: #### 7 [id number], [id number], [id number] ####[facility] (DEFAULT)[address] [place] [address] Basophils/100 WBC (Bld) 0.7 % Normal 0.2-2.0 [facility] Comment on above: Performed By: #### 7 [id number], [id number], [id number] ####[facility] (DEFAULT)[address] [place] [address] 38298 Eos Abs# 0.5 x10 High 0.0-0.4 [facility] Comment on above: Performed By: #### 7 [id number], [id number], [id number] ####[facility] (DEFAULT)[address] [place] [address] Eosinophils/100 WBC (Bld) 4.9 % High 0.9-4.0 [facility] Comment on above: Performed By: #### 7 [id number], [id number], [id number] ####[facility] (DEFAULT)[address] [place] [address] 34410 Lymph Abs# 2.2 x10 Normal 1.3-2.9 [facility] Comment on above: Performed By: #### 7 [id number], [id number], [id number] ####[facility] (DEFAULT)[address] [place] [address] 60634 Lymphocytes/100 WBC (Bld) 23 % Normal 14-48 [facility] Comment on above: Performed By: #### 7 [id number], [id number], [id number] ####[facility] (DEFAULT)[address] [place] [address] 00071 [place] Abs# 0.8 x10 Normal 0.0-0.8 [facility] Comment on above: Performed By: #### 7 444312, [id number], [id number] ####[facility] (DEFAULT)[address] [place] [address] 73450 Neut Abs# 5.9 x10 Normal 1.5-9.2 [facility] Comment on above: Performed By: #### 7 711539, [id number], [id number] ####[facility] (DEFAULT)[address] [place] [address] 47365 Neutrophils/100 WBC (Bld) 63 % Normal 44-88 [facility] Comment on above: Performed By: #### 7 725115, [id number], [id number] ####[facility] (DEFAULT)[address] [place] [address] 17694[facility] Standardon 10-29-2020 eGFR Non AA >60 Invalid Interpretation Code [facility] Comment on above: Performed By: #### 7 [id number], [id number], [id number] ####[facility] (DEFAULT)[address] [place] [address] eGFR AA >60 Invalid Interpretation Code [facility] Comment on above: Result Comment: Controller Instructor brodie Kidney disease could be indicated at eGFRs of less than 60 ml/min/1.73m2. Kidney Failure is indicated at less than 15 ml/min/1.73m2 Performed By: #### 7 [id number], [id number], [id number] ####[facility] (DEFAULT)[address] [place] [address] 10323 Anion gap [Moles/Vol] 17.0 mmol/L Normal 5.0-19.0 [facility] Comment on above: Performed By: #### 7 989153, [id number], [id number] ####[facility] (DEFAULT)[address] [place] [address] 56877 Calcium [Mass/Vol] 9.3 mg/dL Normal 8.9-10.3 [facility] Comment on above: Performed By: #### 7 [id number], [id number], [id number] ####[facility] (DEFAULT)[address] [place] [address] 90749 Chloride [Moles/Vol] 99 mmol/L Low 101-111 [facility] Comment on above: Performed By: #### 7 683090, [id number], [id number] ####[facility] (DEFAULT)[address] [place] [address] 22860 CO2 [Moles/Vol] 25 mmol/L Normal 21-32 [facility] Comment on above: Performed By: #### 7 232224, [id number], [id number] ####[facility] (DEFAULT)[address] [place] [address] 28143 Creatinine [Mass/Vol] 0.63 mg/dL Normal 0.60-1.30 [facility] Comment on above: Performed By: #### 7 769747, [id number], [id number] ####[facility] (DEFAULT)[address] [place] [address] 52285 Glucose [Mass/Vol] 120.0 mg/dL High 74.0-118.0 [facility] Comment on above: Performed By: #### 7 [id number], [id number], [id number] ####[facility] (DEFAULT)[address] [place] [address] 81558 Osmolality 275 mOsm/L Invalid Interpretation Code [facility] Comment on above: Performed By: #### 7 856488, [id number], [id number] ####[facility] (DEFAULT)[address] [place] [address] 45811 Potassium [Moles/Vol] 4.0 mmol/L Normal 3.6-5.1 [facility] Comment on above: Performed By: #### 7 270142, [id number], [id number] ####[facility] (DEFAULT)[address] [place] [address] 92286 Sodium [Moles/Vol] 137.0 mmol/L Normal 136.0-144 . 0 [facility] Comment on above: Performed By: #### 7 320983, [id number], [id number] ####[facility] (DEFAULT)[address] [place] [address] 27331 Urea nitrogen [Mass/Vol] 12 mg/dL Normal 8-26 [facility] Comment on above: Performed By: #### 7 625804, [id number], [id number] ####[facility] (DEFAULT)[address] [place] [address] 68487 Urea nitrogen/Creatinine [Mass ratio] 19.0 mg/mg High 4.6-16.2 [facility] Comment on above: Performed By: #### 7 733444, [id number], [id number] ####[facility] (DEFAULT)[address] [place] [address] 89170 CBC w/ Auto Diffon Erythrocyte distribution width (RBC) [Ratio] 14.7 % Normal 11.5-15.0 [facility] Comment on above: Performed By: #### 7 837950, [id number], [id number] ####[facility] (DEFAULT)[address] [place] [address] 83326 Hematocrit (Bld) [Volume fraction] 36.9 % Normal 33.7-40.4 [facility] Comment on above: Performed By: #### 7 210466, [id number], [id number] ####[facility] (DEFAULT)[address] [place] [address] 94077 Hemoglobin (Bld) [Mass/Vol] 12.0 g/dL Normal 11.3-15. 9 [facility] Comment on above: Performed By: #### 7 257815, [id number], [id number] ####[facility] (DEFAULT)[address] [place] [address] Instr WBC 9.4 x10 Invalid Interpretation Code [facility] Comment on above: Performed By: #### 7 893752, [id number], [id number] ####[facility] (DEFAULT)[address] [place] [address] 27727 Man Diff? Auto Normal [facility] Comment on above: Performed By: #### 7 541514, [id number], [id number] ####[facility] (DEFAULT)[address] [place] [address] 14554 MCH (RBC) [Entitic mass] 30 pg Normal 24-34 [facility] Comment on above: Performed By: #### 7 480582, [id number], [id number] ####[facility] (DEFAULT)[address] [place] [address] 09291 MCHC (RBC) [Mass/Vol] 32 g/dL Normal 26-37 [facility] Comment on above: Performed By: #### 7 885516, [id number], [id number] ####[facility] (DEFAULT)[address] [place] [address] 00451 MCV (RBC) [Entitic vol] 92 fL Normal 81-100 [facility] Comment on above: Performed By: #### 7 852514, [id number], [id number] ####[facility] (DEFAULT)[address] [place] [address] 58572 Platelet 361 x10 Normal 138-427 [facility] Comment on above: Performed By: #### 7 258752, [id number], [id number] ####[facility] (DEFAULT)[address] [place] [address] 36681 Platelet mean volume (Bld) [Entitic vol] 10.2 fL Normal 6.3-10.2 [facility] Comment on above: Performed By: #### 7 145499, [id number], [id number] ####[facility] (DEFAULT)[address] [place] [address] 70111 RBC 4.03 x10 Normal 3.70-5.30 [facility] Comment on above: Performed By: #### 7 440997, [id number], [id number] ####[facility] (DEFAULT)[address] [place] [address] WBC 9.4 x10 Normal 3.5-10.5 [facility] Comment on above: Performed By: #### 7 011585, [id number], [id number] ####[facility] (DEFAULT)[address] [place] [address] Progress Note - Nurseon 10-07 Progress Note - Nurse Pt stated to RN that bilateral groin pain has been there prior to her being admitted to the hospital for her recent RTK surgery. Pt is unsure if the groin pain has continued from her knee surgery she had in May 2019 or if it just started a couple weeks prior to her recent surgery. Pt stated that she would use water bottles as ice packs to bilateral groin and that would help control the pain. pulmonary care nurse notified. [Electronically Signed on: 10/29/2020 11:53 EDT] __ Tomeka Luna RN [Verified on: 10/29/2020 11:53 EDT] __ Tomeka Luna RN Normal [facility] Coding Summaryon 10-28-2020 Coding Summary HTMLBase 64 EkpbeewyKIz9lKb+PGh lYWQ+VG2CPJHuR98tnU NwbT7SY0kGXE9QQPZQW CIKKX2HAZ4tfRK8KUtr D5KjfkRv ZmrztBEtJK12WNs0SDP 4iJnyFGotqC8ruWPcF1 t7UfTrBW78gZ67MTcdB LBjIeK7NbFpvoaziDHk M1mtIiVrlTAuDxe+PHR hYmxlIHdpZHRoPScxMD OuTyEkeXibHF6lKd3lX GVyLWNvbGxhcHNlOiBj s9vfLDYuUArbAT1ziCe sF6JlsME1BXAef7y4Rr 48dHI+OVPkADN5ePepR Hpze166MuQqx3esQRR5 dWLmLYaaQPS9Z71pb3J 1RGQwZVKyFEQ2hFQ5hU 3wrBchgnesY9IsmEVlZ pO8AII3xTCupZ7wgWlz xaeglF4rKpj+R39KTM9 MDFSBWJ2QDfc8H7OgVr wvdHI+TU67SKLjTR91y FCjjAPvw8enoAq4ZjIm NKRwLQO2aTtiFLbik2W uUVRoU26bcRBou5P3QO QyaPrmjPCiWfTisDD4j L8xQEiekyvad1alubdl Dwliq0oxcd08qL36R68 pBDdpUQSrIKO9IIYyWK OxiIgxpd2gxM1yOz3+I Oovy1hvb2elkQd5SpPp QVMqckBigEvzHWG4z4X gAo87F4BsbGibd4OvLo t9ze08cIAqd6O8rLY3J OccEWUrkT5zQQhrVaC1 CNRgElKgqB86cLPnXKj xZs8syCgkoXaaUN6rXT AspkbaVGCygX6iCYTma WYcuSjmHJ5fFMXyyzgb m680JgNqYOP4MUAabML aF4CuiU3yKpBdVIUyAX OzW9XyuLChGEzpO569Y WmgQuA4INRwyvUrR7Rf WGSbnKvrCjS1j4M9If9 Dt6ZwiqiuXLF0PSpsDN A5YkUoZqCcXmU3J0CtI qr2MDPeiDypIG6jT4Gz RUMvhhtkwjxxsFY3COG jDQPnsV61cIVvCAzjFq 7fi0W9i463DPTcXTIlb Q58Du8iqEklHCReaRPW hN9rpnwzb5gqcqmpFwE gOSJrWFx2RGs3ZFMbwZ xsLeRnWYO9WmG7FTF7e XZthR7dbSzuiuzkmL9w Oyc+W39ltH5jNTB8QKW 3oylcRLVjigHbOB40CU 27I6PlZrsocGHurLE+P PUrqzRkfMziNF3qZiBu m9eha2FoLPwxQ9YhCON eAPanRwj2ATRjIFZ4vC A9hS4tSHBlLWwzn4S2o QU5S1UragYrgk4oa7kw UXAdAQjfP74gkHDxq3H 2CRBkoOQ6GYBrlGpqHb VgpC48Hdu+PGNvbGdyb 2LqMflln8fnx5domLy6 IjMwJSIgdmFsaWduPSJ 7h9CxFb87Q96dCAruXR RoPSIxNSUiIHZhbGlnb v8ijC1nCu9+PGNvbCB3 vZY5tT8dOHQzVdH3TDh cJ227JsUoqVJfQnhxi6 dnv6ttnOo8FgLhZFYsq yYurEqaVOZ2k7UnDx40 E98wPGpeLZBhWHLzAFQ xBOEkxKujxi3idX3kUf 8+CV3gf5fywi13cW97d HI+KZLnVUZ2rOqwBIql YXAkcO2pZPhvIxI7QNE tQnXcsP15pFNtZNoeOz 8wyZuloSrfEN7pNYOvz bspj396XvSpy2sbTSJh pMVtPMgiRZL8P83as6I 8WGNsRXEdZGE8lOU4oS 1hbGlnbjogbGVmdDsgd oXbrAdmSLnvLWldE536 IHRvcDsnPlBhdGllbnQ nJzZsWTp9G1KyDaa2JD JxyInfYN3auHEdIXsiA k0huBqilOujOG5rLEDz yvlqj265UxRbm5qmLGD wgCFjWUytAZY8U02yh0 O5EWGiXDJqZPL5qPC0j Y9ucDbotzhidXLnyRzo imAcpMczZBecPQbxJ33 6IHRvcDsnPkJpcnRoIE XyfFS3FU78RG42xEHil 6E4vQE1E5MgSEZgztta xotcoLI3HIYbBUDcpC2 6Zg5anYjzJh8aGGEqRI N5RDMlzRPyC4YxzD8nM pRsQJEyLOVpV3KzhWDq OHfiR439MYktBhV4AET kybBdH0QhYPOjfOhkNa U4q7F0Pa1YB1E2ZB31D U64rLTqs2V9nMZ9Y1Iu SSEauiyflvdhzGT7TRS aJCWttE35Ml8smOlzFm 0sOOTwIXX6HIRnqCDuH 9ApiW8bSjRbYXAhRYLd L0NqwAXkTItoE016JRc eJlE0TWCvtkPdF2RrGM GlvHxdImI7l0N0Zx3HA Np6MF51YC47kVEgt0I6 uTB2T4WeCQElaojpjmz wmRA8YSGtKIXndZ38Ou 9gbHvvTh1kLMXtQHK4R QRpuISnG3KzuD2pHvGn NEJgIKAgU9WfzPNvMGk vP115XRqkTuO0ORKcxg DjM5ZtOJFaaFnoHcT2v 5T5Fq9WIAMzPO91TFJ6 fCA5WH54DI23I0DgTol vdGFibGU+PHRhYmxlIH dpZHRoPScxMDAlJyBzd KonHV9xCc7sYXKhJIBp kOhesLUpDpHhy9fnZQD bGZsvNR1bmTwsO0YbcX P7ESGfj1k1Oj27W63wX 3JvdXA+XMEwtLP5vUS7 yQ8yHeClXkX6JJtdN09 7OpFmgLDbAjndt4vdp2 dcyZb5EsE6JWPdmmOke YdbWUM2l3DjAj52C94k IHdpZHRoPSIxNSUiIHZ fmUydwo6edG6sNk4+PG OqtHH7fDZ1iF8xDcOxR tX8ULdjF486OtWqjDAe Obyvq7zrl5crhAf9IrA lWTGbehDmpUsySAZ6y8 ChCo63M3CupHmqi0WpS gj1pf10mEKss6E6jPJ3 P3GwMGAeozqtwQVqnGo iOM9xFFXqadyvJYPigD 2hBIAoT2w6OoLhVgN5O IvnT7AzsmE4NDDwfXCp DSjgUVY8B33pc5O8QAY nIQJaGZI9iLN5jZ6amC lnbjogbGVmdDsgdmVyd FazFVkmGJdcZ048ABAl mKnvXSWykF1uPQWysHP qjEnaSY0cNRVoyywlBk wJEm1YGnlpAOAFA9XWM TAaFTTRSa6AOI24LM53 aIJbv8F7bWW9S9BrVSQ rokvcgqqgfDE0ZVMzPS GelX72vYEgLIepKy2hl 1B4n170BHXkIZSlkD77 Nq9pgGycMNXzgOMQwM8 kccpfu5wxabkxDxZcTD AgIPs9WUd8IHNgaJcpW fDdXIK8ZkS2KIO6xOSe hC0okVbxrzzruP2dQae +MTIvMDUvMTkzNzwvdG Q+IXQdKJQ5wSkjOPywM ZNrdB4zSURlS1z3RcRa PsC6OKfvV1XuTBOhdqo nIp10aA0pAgRqFzT6HE zsP0GtwvG0JVYugDFrP MiiCRT6D90nw5V3GCQd FROcSGO9nPN9aX2yvHj nbjogbGVmdDsgdmVydG wgMZjyVKjqB454AJWyg LymFirnGPddAJIdRD28 ZF72zZFfq1H2vMF7H9G gSKWvgnlppaobmIC7RV FtJHMtuQ54kJHoPTrfE x1hv1I4x409FJZfRVPv uB85In4paYowSCBmiKQ SfT9tlvnzp3tejzjsWq FyFLXdFRg0NTx1HKDxa KydQbEgEPS1UqF9LDK2 yDHfjD2ptNlqodqtnC2 wOyc+OrZPTRlOYJ26OS 64pXGro6Z2xRZ6D9XzJ MAnuilmcabbeQQ2LUOy OTSucL62xXLvDVvqMc3 ee2A9q145OGFgZXIulR 32Dl1koUueEYNlqKKYy M3yoeguf9ruhtldUvBj AXMhQZq5SHu6QOOtqDo bDpMrUIJ7RhQ5HYC8uR BbcF7kcNoasckuzZ5lF yc+Z5KnKNI8EIRnv032 S1OcXfmsjVB+YK43IMO eXR89zJSqhWRqb6sowM k3FfMiPOLxGOI1bPdvH Ugmk3MwIAAgR90zbKRg n8K9CBAnmCduuVGuMeP bnAT9pB6tSWczzdytb6 ujetmyTvigj1fhuq75r H34B20kLVujAZXeRQVn BMUkLRGugUlngb0lzE2 wIi8+ZZFazUR2tWH8pS 3hHsXaXyX8GUxuL529M ySqvTIkBwfcr7kdo9st yAr2PnCgWLGhkuDefWs eILV6l2UhNa44A57iIU dpZHRoPSIyMCUiIHZhb Oanwi3yuV7iCm8+PC9j s0tsyt77dZ60uSW+PHR wDVB4uZzfIYcrDTSqkZ 1tLSqvJhP2XYBzPiMez P02kJLgYIugVr5smQmp nNvhXG4mKPArhxwvv87 6RrMtb9bnROHazFSrQY vzNXI7B56ys4D2OMFnR RGrZPL4oGB5pB8fmQda bjogbGVmdDsgdmVydGl eEHbtALklS225ZMWvyU seXaWwdUMlN7wmsoUGG R4zYgduvML+PHRkIHN0 qFsaTDkuHVQvgI4wUUZ jT4h8FmRhYlQ4HFrrM3 HldtL4RLEboWHgTFLcl SDZcZ2kcngjz6pypazf KyHkGHMwTWq7ZVs9GQL aiLsyVsMcXWT0HeW9DK L9lVBvpX3gdHvarzsom G9wOyc+RklOOjwvdGQ+ QKAmHJJ3aEauSCsrQWO zxC0kQYBcR6s0FhRsMg J4CMgiR2LybqW1OZIvc ZHjEBVkyQGZaF0fxtro h3mzgbegLiEkTXHkSFw 1LUt4QTVxmRdrBgCrLI N3MpK2BRG4gBSbeZ3qb CsqzaqszN6mCye+TVJO OjwvdGQ+VXTsTCH4fLe eJSsrKFIueX6iNDJgX9 v5RiXtEuK7TGkoO1Mzq vH6VLIvzLNtNPNybHVA kS9occfib2mjincdSdA zOGOaKPu8KFe5KOHmuG obPgQbWYY2MaH7ZGK1u EYrmM1ehWtpdzwxlQ0n Oyc+UQQ2TMM2EZ58EA8 2W4GsHdhsgSHrgPB+PH RhYmxlIHdpZHRoPScxM WAtPpQcsMacZZ8zKz7i ZGV (more content not included)... [facility] Consent Formson 10-28-2020 Consent Forms [id number] [facility] [id number] 67#1.00OTGTIFF [facility] Nutrition Noteon 10-28-2020 Nutrition Note Pt now under Swing Bed/Transitional Care status for additional rehab s/p Rt TKA. Pt remains on a Regular diet w/ Ensure Compact BID in place. Constipation issues appear resolved at this time w/ last BM noted on 10/27. Intake avg 50-100% of meals which is an improvement. No new rec'd. Will continue to monitor. [facility] Outside Recordson 10-28-2020 Outside Records [id number] FE#1.00OTGTIFF [facility] Progress Note - Nurseon 10-07 Progress Note - Nurse reports #10 right knee pain, patient oob up in chair, one percocet administered , will continue to monitor. [Electronically Signed on: 10/28/2020 12:50 EDT] __ Hermelinda Duval RN [Verified on: 10/28/2020 12:50 EDT] __ Hermelinda Duval RN [facility] Progress Note - Nurse Updated on questionable sundowner issues where the patient can do therapy at times and then can't. Pt had been medicated 1 hour prior and was having difficulty. Dr Young made aware of this when obtaining anti-coagulation therapy. [Electronically Signed on: 10/28/2020 10:31 EDT] __ Cat Santana RN [Verified on: 10/28/2020 10:31 EDT] __ Cat Santana RN [facility] Progress Note - Nurse back from shower, eating breakfast, dr. rojas at bedside, one percocet administered for #10 right knee pain, will continue to monitor. [Electronically Signed on: 10/28/2020 08:58 EDT] __ Hermelinda Duval RN [Verified on: 10/28/2020 08:58 EDT] __ Hermelinda Duval RN [facility] Provider Orderson 10-28-2020 Provider Orders [id number] 43#1.00OTGTIFF [facility] Telemetry Stripson Telemetry Strips [id number] 28#1.00OTGTIFF [facility] BMP Standardon 10-27-2020 eGFR Non AA >60 Invalid Interpretation Code [facility] Comment on above: Performed By: #### 1 [id number], [id number] ####[facility] (DEFAULT)[address] [place] [address] eGFR AA >60 Invalid Interpretation Code [facility] Comment on above: Result Comment: Controller Instructor brodie Kidney disease could be indicated at eGFRs of less than 60 ml/min/1.73m2. Kidney Failure is indicated at less than 15 ml/min/1.73m2 Performed By: #### 1 [id number], [id number] ####[facility] (DEFAULT)[address] [place] [address] Anion gap [Moles/Vol] 12.0 mmol/L Normal 5.0-19.0 [facility] Comment on above: Performed By: #### 1 [id number], [id number] ####[facility] (DEFAULT)[address] [place] [address] [place] [address] Calcium [Mass/Vol] 8.3 mg/dL Low 8.9-10.3 [facility] Comment on above: Performed By: #### 1 [id number], [id number] ####[facility] (DEFAULT)[address] [place] [address] 46627 Chloride [Moles/Vol] 104 mmol/L Normal 101-111 [facility] Comment on above: Performed By: #### 1 [id number], [id number] ####[facility] (DEFAULT)[address] [place] [address] 33297 CO2 [Moles/Vol] 26 mmol/L Normal 21-32 [facility] Comment on above: Performed By: #### 1 [id number], [id number] ####[facility] (DEFAULT)[address] [place] [address] 94126 Creatinine [Mass/Vol] 0.62 mg/dL Normal 0.60-1.30 [facility] Comment on above: Performed By: #### 1 [id number], [id number] ####[facility] (DEFAULT)[address] [place] [address] 35505 Glucose [Mass/Vol] 113.0 mg/dL Normal 74.0-118.0 [facility] Comment on above: Performed By: #### 1 [id number], [id number] ####[facility] (DEFAULT)[address] [place] [address] 87476 Osmolality 276 mOsm/L Invalid Interpretation Code [facility] Comment on above: Performed By: #### 1 [id number], [id number] ####[facility] (DEFAULT)[address] [place] [address] 12860 Potassium [Moles/Vol] 3.9 mmol/L Normal 3.6-5.1 [facility] Comment on above: Performed By: #### 1 [id number], [id number] ####[facility] (DEFAULT)[address] [place] [address] 47378 Sodium [Moles/Vol] 138.0 mmol/L Normal 136.0-144 . 0 [facility] Comment on above: Performed By: #### 1 [id number], [id number] ####[facility] (DEFAULT)[address] [place] [address] 31029 Urea nitrogen [Mass/Vol] 11 mg/dL Normal 8-26 [facility] Comment on above: Performed By: #### 1 [id number], [id number] ####[facility] (DEFAULT)[address] [place] [address] Urea nitrogen/Creatinine [Mass ratio] 18.0 mg/mg High 4.6-16.2 [facility] Comment on above: Performed By: #### 1 [id number], [id number] ####[facility] (DEFAULT)[address] [place] [address] 58608 Extra [place] 10-27-2020 Tube Collected Yes Invalid Interpretation Code [facility] Comment on above: Performed By: #### 1 [id number], [id number] ####[facility] (DEFAULT)[address] [place] [address] 43104 Inpatient Patient Summaryon 10-27-2020 Inpatient Patient Summary [facility] [address] [address] Patient Discharge Instructions Name: RAMY MADRIGAL : 1935 Patient Address: [address] [place] [address] Primary Care Provider: Name: SEVEN PALMER After you are discharged if you find you have any questions, please, call [phone] ext [phone] to speak to a nurse. 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 If you or anyone you know is experiencing suicidal thoughts, mental health, alcohol and/or drug addiction problems; contact the [facility] 28/11 Crisis Hotline -Text 4HOPE to 589540. If you received any narcotics, sedation, or any other medication that causes drowsiness for the next 24 hours, unless otherwise directed: ? Do not drive a car. ? Do not operate machinery such as power tools, lawn mowers, drills, sewing machines, or stoves ? Avoid alcoholic beverages and drugs for allergies, nerves, or sleep ? Do not make important personal or business decisions or sign any legal documents [facility] would like to thank you for allowing us to assist you with your healthcare needs. The following includes patient education materials and information regarding your injury/illness. ROHAN RAMY MRAIE has been given the following list of follow-up instructions, prescriptions, and patient education materials: Follow-up Instructions With: Address: When: November AT 11:00 AM [facility] [address], [address] Gloria/ DELONTE GUERIN PA-C [phone] Medications During the course of your visit, your medication list was updated with the most current information. The details of those changes are reflected below: Medications That Were Updated - Follow Below Instructions Other Medications Updated: cholecalciferol (Vitamin D3 1000 intl units oral capsule) 2 cap(s) Oral every day. Updated: lovastatin (lovastatin 40 mg oral tablet) 1 tab(s) Oral once a day (at bedtime). Updated: multivitamin with iron (Poly Iron 150 Forte oral capsule) 1 cap(s) Oral every day. Medications to Continue That Have Not Changed Printed Prescriptions acetaminophen-oxyco done (Percocet 5/325 oral tablet) 1 tab(s) Oral Every 6 hours as needed for pain for 7 Days. Refills: 0. Other Medications acetaminophen (acetaminophen 1,000mg/100ml IVPB Soln) 160 Milligram Oral Every 6 hours as needed as needed for pain. amLODIPine (amLODIPine 10 mg oral tablet) 1 tab(s) Oral every day. ascorbic acid (ascorbic acid 500 mg oral capsule) 1 cap(s) Oral every day. aspirin (aspirin 81 mg oral tablet) 1 tab(s) Oral 2 times a day. calcium carbonate (Oyster Shell Calcium 500) 1,250 Milligram Oral 2 times a day. clindamycin (clindamycin 600 mg/50 mL-NaCl 0.9% intravenous solution) 600 Milligram Intravenous every 8 hours. cyanocobalamin (Vitamin B-12 100 mcg oral tablet) 1 tab(s) Oral every day. docusate (docusate sodium 100 mg oral tablet) 1 tab(s) Oral 2 times a day. ferrous sulfate (ferrous sulfate 325 mg (65 mg elemental iron) oral tablet) 1 tab(s) Oral 2 times a day. hydroCHLOROthiazide (hydroCHLOROthiazid e 25 mg oral tablet) 1 tab(s) Oral every day. levothyroxine (levothyroxine 75 mcg (0.075 mg) oral tablet) 1 tab(s) Oral every day. liothyronine (liothyronine 5 mcg oral tablet) 1 tab(s) Oral every day. loratadine (Allergy Relief) 1 tab(s) Oral every day. metoprolol (Metoprolol Succinate ER 50 mg oral tablet, extended release) 1 tab(s) Oral every day. omega-3 polyunsaturated fatty acids (Nature's Bounty Red Krill Oil 500 mg oral capsule) omeprazole (PriLOSEC 10 mg oral delayed release capsule) 1 cap(s) Oral every day. potassium chloride (potassium chloride 20 mEq oral tablet, extended release) 1 tab(s) Oral 2 times a day. pyridoxine (Vitamin B6 100 mg oral tablet) 1 tab(s) Oral every day. zolpidem (Ambien 10 mg oral tablet) 1 tab(s) Oral once a day (at bedtime) as needed as needed for insomnia. It is important to always keep an active list of medications available so that you can share with other providers and manage your medications appropriately. As an additional courtesy, we are also providing you with your final active medications list that you can keep with you. acetaminophen (acetaminophen 1,000mg/100ml IVPB Soln) 160 Milligram Oral Every 6 hours as needed as needed for pain., post op medication acetaminophen-oxyco done (Percocet 5/325 oral tablet) 1 tab(s) Oral Every 6 hours as needed for pain for 7 Days. Refills: 0. amLODIPine (amLODIPine 10 mg oral tablet) 1 tab(s) Oral every day. ascorbic acid (ascorbic acid 500 mg oral capsule) 1 cap(s) Oral every day., post op medication aspirin (aspirin 81 mg oral tablet (more content not included)... [facility] Noteon 10-27-2020 Pharmacy Note I have personally reviewed this patient's current medication list including prescription medications, OTC products, vitamins and supplements for the following: Home Medication Review Home medications reviewed as follows: Home Medications (17) Active Allergy Relief 1 tab(s), PO, Daily Ambien 10 mg oral tablet 10 mg = 1 tab(s), PRN, PO, Once a day (at bedtime) amLODIPine 10 mg oral tablet 10 mg = 1 tab(s), PO, Daily aspirin 81 mg oral tablet 81 mg = 1 tab(s), PO, BID hydroCHLOROthiazide 25 mg oral tablet 25 mg = 1 tab(s), PO, Daily levothyroxine 75 mcg (0.075 mg) oral tablet 75 mcg = 1 tab(s), PO, Daily liothyronine 5 mcg oral tablet 5 mcg = 1 tab(s), PO, Daily lovastatin 40 mg oral tablet 40 mg = 1 tab(s), PO, Daily Metoprolol Succinate ER 50 mg oral tablet, extended release 50 mg = 1 tab(s), PO, Daily Nature's Bounty Red Krill Oil 500 mg oral capsule Percocet 5/325 oral tablet 1 tab(s), PRN, PO, q6hr Poly Iron 150 Forte oral capsule potassium chloride 20 mEq oral tablet, extended release 20 mEq = 1 tab(s), PO, BID PriLOSEC 10 mg oral delayed release capsule 10 mg = 1 cap(s), PO, Daily Vitamin B-12 100 mcg oral tablet 100 mcg = 1 tab(s), PO, Daily Vitamin B6 100 mg oral tablet 100 mg = 1 tab(s), PO, Daily Vitamin D3 1000 intl units oral capsule 1,000 International_Unit = 1 cap(s), PO, Every other day Status of Medication History: Incomplete - Potassium chloride appears to be once daily, not twice daily; omeprazole not on external fill list, is pt still taking, getting OTC? - will follow up with bedside RX or pt Renal Function: Estimated CrCl: no serum creatinine recorded Action: Pt not currently receiving any renally adjusted medications. Will continue to monitor if she is started on renally adjusted medication and request serum creatinine. Anticoagulation or Prophylaxis: ASA discontinued 10/25/20 Action: Continue to monitor Antibiotics: Clindamycin Indication: possible incision infection - pt received clindamycin x 3 post-op on 10/23/20. On 10/25/20 pt developed a flat, reddened area on inner right side of incision on right knee about the size of a fist. Clindamycin restarted at that time. Culture Results: N/A Action: Appropriate therapy chosen based on c/s results. Monitor length of therapy (today = day 2 of re-start therapy). Pain Management: prn narcotic pain medication(s): Oxycodone 5mg - moderate pain; 10mg - severe pain; IV morphine - discontinued 10/26/20 prn non-narcotic pain medication(s): Acetaminophen PO - mild pain, 6 hrs after last dose of IV APAP; Acetaminophen IV - mild pain Bowel regimen medication(s): Docusate scheduled and bisacodyl prn Action: OARRS and risk factors reviewed. PDMP marked as reviewed. Continue to monitor patient's pain control - pt receiving oxycodone 10mg, progress note from this morning 0420 states oxycodone 10mg not helping, therefore give IV APAP. Other: Holding home HCTZ and amlodipine - per hospitalist note, likely to hold upon d/c and have pt discuss restart with PCP. [Electronically Signed on: 10/27/2020 10:31 EDT] __ Gilda Khalil PharmD [Verified on: 10/27/2020 10:31 EDT] __ Gilda Khalil PharmD [facility] Progress Note - Nurseon 06-2 Progress Note - Nurse Patient reports little to no pain relief with Oxycodone. Still rates right knee and general all over body pain 10/10 . Patient does not like the way Morphine makes her feel and does not want to take at this time so Tylenol given IV as ordered. Patient steady and slow with walker to bathroom and back to bed. Does need assistance getting right leg into and out of bed. Patient is able to position self in bed with trapeze. Patient denies any further needs. Call light in reach and bed alarm on. [Electronically Signed on: 10/27/2020 04:20 EDT] __ Shari Villalba RN [Verified on: 10/27/2020 04:20 EDT] __ Shari Villalba RN Normal [facility] .Auto Diff 1on 10-26-2020 Auto [place] % 10 % Normal -12 [facility] Comment on above: Performed By: #### 1 [id number], [id number] #### [facility] (DEFAULT) [address] [place] [address] 59271 Baso Abs# 0.1 x10 Normal 0.0-0.2 [facility] Comment on above: Performed By: #### 1 [id number], [id number] #### [facility] (DEFAULT) [address] [place] [address] 87989 Basophils/100 WBC (Bld) 0.7 % Normal 0.2-2.0 [facility] Comment on above: Performed By: #### 1 [id number], [id number] #### [facility] (DEFAULT) [address] [place] [address] 89025 Eos Abs# 0.5 x10 High 0.0-0.4 [facility] Comment on above: Performed By: #### 1 [id number], [id number] #### [facility] (DEFAULT) [address] [place] [address] 42827 Eosinophils/100 WBC (Bld) 5.4 % High 0.9-4.0 [facility] Comment on above: Performed By: #### 1 [id number], [id number] #### [facility] (DEFAULT) [address] [place] [address] 84281 Lymph Abs# 2.6 x10 Normal 1.3-2.9 [facility] Comment on above: Performed By: #### 1 [id number], [id number] #### [facility] (DEFAULT) [address] [place] [address] 36836 Lymphocytes/100 WBC (Bld) 27 % Normal 14-48 [facility] Comment on above: Performed By: #### 1 [id number], [id number] #### [facility] (DEFAULT) [address] [place] [address] 07775 [place] Abs# 1.0 x10 High 0.0-0.8 [facility] Comment on above: Performed By: #### 1 [id number], [id number] #### [facility] (DEFAULT) [address] [place] [address] 08819 Neut Abs# 5.4 x10 Normal 1.5-9.2 [facility] Comment on above: Performed By: #### 1 [id number], [id number] #### [facility] (DEFAULT) [address] [place] [address] 11893 Neutrophils/100 WBC (Bld) 56 % Normal 44-88 [facility] Comment on above: Performed By: #### 1 [id number], [id number] #### [facility] (DEFAULT) [address] [place] [address] 33774 [facility] Standardon 10-26-2020 eGFR Non AA >60 Invalid Interpretation Code [facility] Comment on above: Performed By: #### 1 [id number], [id number] #### [facility] (DEFAULT) [address] [place] [address] 76640 eGFR AA >60 Invalid Interpretation Code [facility] Comment on above: Result Comment: Controller Instructor brodie Kidney disease could be indicated at eGFRs of less than 60 ml/min/1.73m2. Kidney Failure is indicated at less than 15 ml/min/1.73m2 Performed By: #### 1 [id number], [id number] #### [facility] (DEFAULT) [address] [place] [address] 41915 Anion gap [Moles/Vol] 14.0 mmol/L Normal 5.0-19.0 [facility] Comment on above: Performed By: #### 1 [id number], [id number] #### [facility] (DEFAULT) [address] [place] [address] 17451 Calcium [Mass/Vol] 8.7 mg/dL Low 8.9-10.3 [facility] Comment on above: Performed By: #### 1 [id number], [id number] #### [facility] (DEFAULT) [address] [place] [address] 23413 Chloride [Moles/Vol] 102 mmol/L Normal 101-111 [facility] Comment on above: Performed By: #### 1 [id number], [id number] #### [facility] (DEFAULT) [address] [place] [address] 17252 CO2 [Moles/Vol] 28 mmol/L Normal 21-32 [facility] Comment on above: Performed By: #### 1 [id number], [id number] #### [facility] (DEFAULT) [address] [place] [address] 40857 Creatinine [Mass/Vol] 0.55 mg/dL Low 0.60-1.30 [facility] Comment on above: Performed By: #### 1 [id number], [id number] #### [facility] (DEFAULT) [address] [place] [address] 63609 Glucose [Mass/Vol] 102.0 mg/dL Normal 74.0-118.0 [facility] Comment on above: Performed By: #### 1 [id number], [id number] #### [facility] (DEFAULT) [address] [place] [address] 62983 Osmolality 279 mOsm/L Invalid Interpretation Code [facility] Comment on above: Performed By: #### 1 [id number], [id number] #### [facility] (DEFAULT) [address] [place] [address] 94419 Potassium [Moles/Vol] 3.6 mmol/L Normal 3.6-5.1 [facility] Comment on above: Performed By: #### 1 [id number], [id number] #### [facility] (DEFAULT) [address] [place] [address] 35090 Sodium [Moles/Vol] 140.0 mmol/L Normal 136.0-144 . 0 [facility] Comment on above: Performed By: #### 1 [id number], [id number] #### [facility] (DEFAULT) [address] [place] [address] 04673 Urea nitrogen [Mass/Vol] 10 mg/dL Normal 8-26 [facility] Comment on above: Performed By: #### 1 [id number], [id number] #### [facility] (DEFAULT) [address] [place] [address] 42798 Urea nitrogen/Creatinine [Mass ratio] 18.0 mg/mg High 4.6-16.2 [facility] Comment on above: Performed By: #### 1 [id number], [id number] #### [facility] (DEFAULT) [address] [place] [address] 05898 CBC w/ Auto Diffon Erythrocyte distribution width (RBC) [Ratio] 15.0 % Normal 11.5-15.0 [facility] Comment on above: Performed By: #### 1 [id number], [id number] #### [facility] (DEFAULT) [address] [place] [address] Hematocrit (Bld) [Volume fraction] 34.5 % Normal 33.7-40.4 [facility] Comment on above: Performed By: #### 1 [id number], [id number] #### [facility] (DEFAULT) [address] [place] [address] Hemoglobin (Bld) [Mass/Vol] 11.1 g/dL Low 11.3-15. 9 [facility] Comment on above: Performed By: #### 1 [id number], [id number] #### [facility] (DEFAULT) [address] [place] [address] Instr WBC 9.7 x10 Invalid Interpretation Code [facility] Comment on above: Performed By: #### 1 [id number], [id number] #### [facility] (DEFAULT) [address] [place] [address] 61447 Man Diff? Auto Normal [facility] Comment on above: Performed By: #### 1 [id number], [id number] #### [facility] (DEFAULT) [address] [place] [address] 76658 MCH (RBC) [Entitic mass] 30 pg Normal 24-34 [facility] Comment on above: Performed By: #### 1 [id number], [id number] #### [facility] (DEFAULT) [address] [place] [address] 58253 MCHC (RBC) [Mass/Vol] 32 g/dL Normal 26-37 [facility] Comment on above: Performed By: #### 1 [id number], 0397510 #### [facility] (DEFAULT) [address] [place] [address] 57026 MCV (RBC) [Entitic vol] 92 fL Normal 81-100 [facility] Comment on above: Performed By: #### 1 [id number], [id number] #### [facility] (DEFAULT) [address] [place] [address] 79654 Platelet 283 x10 Normal 138-427 [facility] Comment on above: Performed By: #### 1 [id number], [id number] #### [facility] (DEFAULT) [address] [place] [address] 79824 Platelet mean volume (Bld) [Entitic vol] 10.7 fL High 6.3-10.2 [facility] Comment on above: Performed By: #### 1 [id number], 8851665 #### [facility] (DEFAULT) [address] [place] [address] 08162 RBC 3.74 x10 Normal 3.70-5.30 [facility] Comment on above: Performed By: #### 1 [id number], [id number] #### [facility] (DEFAULT) [address] [place] [address] 54726 WBC 9.7 x10 Normal 3.5-10.5 [facility] Comment on above: Performed By: #### 1 [id number], [id number] #### [facility] (DEFAULT) [address] [place] [address] 91818 Magnesiumon 10-26-2020 Magnesium [Mass/Vol] 1.54 mg/dL Low 1.80-2.50 [facility] Comment on above: Performed By: #### 1 [id number], [id number] #### [facility] (DEFAULT) [address] [place] [address] 23292 Nutrition Noteon 10-26-2020 Nutrition Note Pt with varied intake avg 55% of past 6 meals recorded, however, is consuming Ensure Compact routinely. Labs obtained noting low Mg, K; KCl added. Pt is taking a MVI, however, suspect may need additional Mg as well. Constipation noted w/ last BM reported on 10/22 pre-surgery. Will encourage prunes/prune olman and/or higher fiber choices along w/ adequate fluid and walking. Will continue to follow. Pt ordered prunes for prune juice, advised [employer] to also provide with lunch. Pt scheduled to be discharged today. [facility] Pharmacy Noteon 10-26-2020 Pharmacy Note I have personally reviewed this patient's current medication list including prescription medications, OTC products, vitamins and supplements for the following: Home Medication Review Home medications reviewed as follows: Home Medications (17) Active Allergy Relief 1 tab(s), PO, Daily Ambien 10 mg oral tablet 10 mg = 1 tab(s), PRN, PO, Once a day (at bedtime) amLODIPine 10 mg oral tablet 10 mg = 1 tab(s), PO, Daily aspirin 81 mg oral tablet 81 mg = 1 tab(s), PO, BID hydroCHLOROthiazide 25 mg oral tablet 25 mg = 1 tab(s), PO, Daily levothyroxine 75 mcg (0.075 mg) oral tablet 75 mcg = 1 tab(s), PO, Daily liothyronine 5 mcg oral tablet 5 mcg = 1 tab(s), PO, Daily lovastatin 40 mg oral tablet 40 mg = 1 tab(s), PO, Daily Metoprolol Succinate ER 50 mg oral tablet, extended release 50 mg = 1 tab(s), PO, Daily Nature's Bounty Red Krill Oil 500 mg oral capsule Percocet 5/325 oral tablet 1 tab(s), PRN, PO, q6hr Poly Iron 150 Forte oral capsule potassium chloride 20 mEq oral tablet, extended release 20 mEq = 1 tab(s), PO, BID PriLOSEC 10 mg oral delayed release capsule 10 mg = 1 cap(s), PO, Daily Vitamin B-12 100 mcg oral tablet 100 mcg = 1 tab(s), PO, Daily Vitamin B6 100 mg oral tablet 100 mg = 1 tab(s), PO, Daily Vitamin D3 1000 intl units oral capsule 1,000 International_Unit = 1 cap(s), PO, Every other day Status of Medication History: Incomplete - Potassium chloride appears to be once daily, not twice daily; omeprazole not on external fill list, is pt still taking, getting OTC? - will follow up with bedside RX or pt Renal Function: Estimated CrCl: no serum creatinine recorded Action: Pt not currently receiving any renally adjusted medications. Will continue to monitor if she is started on reanlly adjsuted medication and request serum creatinine. Anticoagulation or Prophylaxis: ASA discontinued 10/25/20 Action: Continue to monitor Antibiotics: Clindamycin Indication: possible incision infection - pt received clindamycin x 3 post-op on 10/23/20. On 10/25/20 pt developed a flat, reddened area on inner right side of incision on right knee about the size of a fist. Clindamycin restarted at that time. Culture Results: N/A Action: Appropriate therapy chosen based on c/s results. Monitor length of therapy. Pain Management: prn narcotic pain medication(s): Oxycodone 5mg - moderate pain; 10mg - severe pain; IV morphine - for severe pain not controlled by PO oxycodone prn non-narcotic pain medication(s): Acetaminophen - mild pain Bowel regimen medication(s): Docusate scheduled and bisacodyl prn Action: OARRS and risk factors reviewed. PDMP marked as reviewed. Continue to monitor patient's pain control - pt receiving IV morphine this am x 2. Other: Holding home HCTZ and amlodipine - per hospitalist note, likely to hold upon d/c and have pt discuss restart with PCP. [Electronically Signed on: 10/26/2020 08:42 EDT] __ Gilda Khalil PharmD [Verified on: 10/26/2020 08:42 EDT] __ Gilda Khalil PharmD [facility] Progress Note - Ashley 06-2 Progress Note - Nurse 2 oxycodone administered for #8 right knee pain, will continue to monitor. [Electronically Signed on: 10/26/2020 13:24 EDT] __ Hermelinda Duval RN [Verified on: 10/26/2020 13:24 EDT] __ Hermelinda Duval RN [facility] Progress Note - Nurse 2 oxycodone administered for #8 right knee and lower bilateral back pain, will continue to monitor. [Electronically Signed on: 10/26/2020 09:48 EDT] __ Hermelinda Duval RN [Verified on: 10/26/2020 09:48 EDT] __ Hermelinda Duval RN [facility] .Auto Diff 1on 10-25-2020 Auto [place] % 10 % Normal 1-12 [facility] Comment on above: Performed By: #### 7 [id number], [id number], [id number], [id number] ####[facility] (DEFAULT)[address] [place] [address] Baso Abs# 0.0 x10 Normal 0.0-0.2 [facility] Comment on above: Performed By: #### 7 [id number], [id number], [id number], [id number] ####[facility] (DEFAULT)[address] [place] [address] Basophils/100 WBC (Bld) 0.4 % Normal 0.2-2.0 [facility] Comment on above: Performed By: #### 7 [id number], 3294731, [id number], [id number] ####[facility] (DEFAULT)[address] [place] [address] 37977 Eos Abs# 0.3 x10 Normal 0.0-0.4 [facility] Comment on above: Performed By: #### 7 [id number], 6525066, [id number], [id number] ####[facility] (DEFAULT)[address] [place] [address] Eosinophils/100 WBC (Bld) 2.9 % Normal 0.9-4.0 [facility] Comment on above: Performed By: #### 7 124086, 4041428, [id number], [id number] ####[facility] (DEFAULT)[address] [place] [address] Lymph Abs# 2.3 x10 Normal 1.3-2.9 [facility] Comment on above: Performed By: #### 7 624805, 1646505, [id number], [id number] ####[facility] (DEFAULT)[address] [place] [address] Lymphocytes/100 WBC (Bld) 20 % Normal 14-48 [facility] Comment on above: Performed By: #### 7 855142, 5895386, [id number], [id number] ####[facility] (DEFAULT)[address] [place] [address] [place] Abs# 1.1 x10 High 0.0-0.8 [facility] Comment on above: Performed By: #### 7 541538, 2830983, [id number], [id number] ####[facility] (DEFAULT)[address] [place] [address] Neut Abs# 7.4 x10 Normal 1.5-9.2 [facility] Comment on above: Performed By: #### 7 183303, 0882398, [id number], [id number] ####[facility] (DEFAULT)[address] [place] [address] 99434 Neutrophils/100 WBC (Bld) 66 % Normal 44-88 [facility] Comment on above: Performed By: #### 7 037758, 2077890, [id number], [id number] ####[facility] (DEFAULT)[address] [place] [address] CBC w/ Auto Diffon 1 Erythrocyte distribution width (RBC) [Ratio] 15.0 % Normal 11.5-15.0 [facility] Comment on above: Performed By: #### 7 953375, 8522589, [id number], [id number] #### [facility] (DEFAULT) [address] [place] [address] Hematocrit (Bld) [Volume fraction] 35.4 % Normal 33.7-40.4 [facility] Comment on above: Performed By: #### 7 690355, 7314385, [id number], 50346714 #### [facility] (DEFAULT) [address] [place] [address] Hemoglobin (Bld) [Mass/Vol] 11.5 g/dL Normal 11.3-15. 9 [facility] Comment on above: Performed By: #### 7 510366, 0159143, [id number], [id number] #### [facility] (DEFAULT) [address] [place] [address] Instr WBC 11.2 x10 Invalid Interpretation Code [facility] Comment on above: Performed By: #### 7 515342, 3305438, [id number], [id number] #### [facility] (DEFAULT) [address] [place] [address] Man Diff? Auto Normal [facility] Comment on above: Performed By: #### 7 474097, 3565450, [id number], [id number] #### [facility] (DEFAULT) [address] [place] [address] MCH (RBC) [Entitic mass] 30 pg Normal 24-34 [facility] Comment on above: Performed By: #### 7 927841, 9501303, [id number], [id number] #### [facility] (DEFAULT) [address] [place] [address] MCHC (RBC) [Mass/Vol] 32 g/dL Normal 26-37 [facility] Comment on above: Performed By: #### 7 279686, 5949190, [id number], 77692007 #### [facility] (DEFAULT) [address] [place] [address] 21001 MCV (RBC) [Entitic vol] 91 fL Normal 81-100 [facility] Comment on above: Performed By: #### 7 282454, 0085813, [id number], [id number] #### [facility] (DEFAULT) [address] [place] [address] 34352 Platelet 264 x10 Normal 138-427 [facility] Comment on above: Performed By: #### 7 299654, 7715481, [id number], [id number] #### [facility] (DEFAULT) [address] [place] [address] 16161 Platelet mean volume (Bld) [Entitic vol] 10.6 fL High 6.3-10.2 [facility] Comment on above: Performed By: #### 7 244626, 1718286, [id number], [id number] #### [facility] (DEFAULT) [address] [place] [address] 56634 RBC 3.88 x10 Normal 3.70-5.30 [facility] Comment on above: Performed By: #### 7 296940, 4501560, [id number], 96953286 #### [facility] (DEFAULT) [address] [place] [address] 03289 WBC 11.2 x10 High 3.5-10.5 [facility] Comment on above: Performed By: #### 7 153809, 4766431, [id number], [id number] #### [facility] (DEFAULT) [address] [place] [address] 28672 Electrolyte Panel Standardon 10-25-2020 Anion gap [Moles/Vol] 14.0 mmol/L Normal 5.0-19.0 [facility] Comment on above: Performed By: #### 7 158064, 6257318, [id number], [id number] ####[facility] (DEFAULT)[address] [place] [address] 39182 Chloride [Moles/Vol] 100 mmol/L Low 101-111 [facility] Comment on above: Performed By: #### 7 013086, 7468882, [id number], [id number] ####[facility] (DEFAULT)[address] [place] [address] 02744 CO2 [Moles/Vol] 27 mmol/L Normal 21-32 [facility] Comment on above: Performed By: #### 7 361345, 8620645, [id number], [id number] ####[facility] (DEFAULT)[address] [place] [address] 10624 Potassium [Moles/Vol] 3.1 mmol/L Low 3.6-5.1 [facility] Comment on above: Performed By: #### 7 100164, 6992014, [id number], 97370453 ####[facility] (DEFAULT)[address] [place] [address] 37571 Sodium [Moles/Vol] 138.0 mmol/L Normal 136.0-144 . 0 [facility] Comment on above: Performed By: #### 7 307161, 8768743, [id number], 92446318 ####[facility] (DEFAULT)[address] [place] [address] 57671 Magnesiumon 10-25-2020 Magnesium [Mass/Vol] 1.48 mg/dL Low 1.80-2.50 [facility] Comment on above: Performed By: #### 7 424252, 7654067, [id number], [id number] ####[facility] (DEFAULT)[address] [place] [address] 15925 Progress Note - Nurseon 10-07 Progress Note - Nurse Assisted pt. back to bed from her walk back from the restroom. Pt. reported severe pain to her right knee. Several position change attempts unsuccessful. Morphine given at 1629 as ordered. Pt. reports it took the edge off for a short period. Right knee developed a flat reddened area on the inner right side of the incision about the size of a fist. Area warm/hot to touch. Outlined in skin marker. Knee edematous+2 but not severe. Johnathon intact. Incision well approximated No active drainage noted. Old dressing contained a moderate amt. of pink brown drainage. No bruising noted. Temperature 36.7. Applied 1.5 primipores and wrapped with an 6 inch hina wrap from ankle to thigh. Oxycodone 10mg given at 1745 for a #10 right knee pain. Charge nurse informed. Dr. Young called. Orders received. Pt. repositioned on her right side for comfort. [Electronically Signed on: 10/25/2020 19:45 EDT] __ Kalpesh Walsh RN [Verified on: 10/25/2020 19:45 EDT] __ Kalpesh Walsh RN [facility] Progress Note - Nurse During rounds pt awakened, I asked her how she is feeling if she needs anything for pain and she replies no, feeling good right now . [Electronically Signed on: 10/25/2020 00:42 EDT] __ Madeleine Yoder RN [Verified on: 10/25/2020 00:42 EDT] __ Madeleine Yoder RN [facility] XR Knee One or Two Views Rig on 10-25-2020 XR Knee One or Two Views Right CLINICAL HISTORY: redness and pain to right knee. 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 EXAMINATION: RIGHT KNEE: 10/25/2020. COMPARISON: Right knee 10/23/2020. FINDINGS: AP, crosstable lateral view performed portably are provided which demonstrate there are surgical clips overlying the knee joint anteriorly. There is a prostheses in place which is anatomically aligned. There are postsurgical changes anteriorly with overall edema of the soft tissues. There are few droplets of air in the overlying soft tissues. No discrete air-fluid levels are seen. There are vascular calcifications. IMPRESSION: 1. No acute fractures or dislocations. 2. No hardware associated complications. 3. Increase in edema anteriorly particularly in the suprapatellar joint space with few droplets of air which could be related to postsurgical changes however developing inflammatory or infectious process would be difficult to exclude. Final Dictated by: Alejo Reinoso Dictated DT/TM: 10/25/20 8:31 Signed (Electronic Signature): Alejo Reinoso 10/25/20 8:45 pm Technologist: LAQUITA [facility] Comment on above: Order Comment: Dr. Shari sanchez requested A/P and Lat .Auto Diff 10-24-2020 Auto [place] % 11 % Normal -12 [facility] Comment on above: Performed By: #### 1 [id number], [id number], [id number] ####[facility] (DEFAULT)[address] [place] [address] Baso Abs# 0.1 x10 Normal 0.0-0.2 [facility] Comment on above: Performed By: #### 1 [id number], [id number] ####[facility] (DEFAULT)[address] [place] [address] Basophils/100 WBC (Bld) 0.8 % Normal 0.2-2.0 [facility] Comment on above: Performed By: #### 1 [id number], [id number], [id number] ####[facility] (DEFAULT)[address] [place] [address] Eos Abs# 0.4 x10 Normal 0.0-0.4 [facility] Comment on above: Performed By: #### 1 [id number], [id number], [id number] ####[facility] (DEFAULT)[address] [place] [address] Eosinophils/100 WBC (Bld) 4.4 % High 0.9-4.0 [facility] Comment on above: Performed By: #### 1 [id number], [id number], [id number] ####[facility] (DEFAULT)[address] [place] [address] Lymph Abs# 1.6 x10 Normal 1.3-2.9 [facility] Comment on above: Performed By: #### 1 [id number], [id number], [id number] ####[facility] (DEFAULT)[address] [place] [address] Lymphocytes/100 WBC (Bld) 18 % Normal 14-48 [facility] Comment on above: Performed By: #### 1 [id number], [id number], [id number] ####[facility] (DEFAULT)[address] [place] [address] [place] Abs# 1.0 x10 High 0.0-0.8 [facility] Comment on above: Performed By: #### 1 [id number], [id number], [id number] ####[facility] (DEFAULT)[address] [place] [address] Neut Abs# 5.8 x10 Normal 1.5-9.2 [facility] Comment on above: Performed By: #### 1 [id number], [id number], [id number] ####[facility] (DEFAULT)[address] [place] [address] Neutrophils/100 WBC (Bld) 65 % Normal 44-88 [facility] Comment on above: Performed By: #### 1 [id number], [id number], [id number] ####[facility] (DEFAULT)[address] [place] [address] CBC w/ Auto Diffon 1 Erythrocyte distribution width (RBC) [Ratio] 14.9 % Normal 11.5-15.0 [facility] Comment on above: Performed By: #### 1 [id number], [id number], [id number] ####[facility] (DEFAULT)[address] [place] [address] Hematocrit (Bld) [Volume fraction] 35.1 % Normal 33.7-40.4 [facility] Comment on above: Performed By: #### 1 [id number], [id number], [id number] ####[facility] (DEFAULT)[address] [place] [address] Hemoglobin (Bld) [Mass/Vol] 11.3 g/dL Normal 11.3-15. 9 [facility] Comment on above: Performed By: #### 1 [id number], [id number], [id number] ####[facility] (DEFAULT)[address] [place] [address] Instr WBC 8.9 x10 Invalid Interpretation Code [facility] Comment on above: Performed By: #### 1 [id number], [id number], [id number] ####[facility] (DEFAULT)[address] [place] [address]2505 Man Diff? Auto Normal [facility] Comment on above: Performed By: #### 1 [id number], [id number], [id number] ####[facility] (DEFAULT)[address] [place] [address] 87886 MCH (RBC) [Entitic mass] 30 pg Normal 24-34 [facility] Comment on above: Performed By: #### 1 [id number], [id number], [id number] ####[facility] (DEFAULT)[address] [place] [address]3453 MCHC (RBC) [Mass/Vol] 32 g/dL Normal 26-37 [facility] Comment on above: Performed By: #### 1 [id number], [id number], [id number] ####[facility] (DEFAULT)[address] [place] [address] 59270 MCV (RBC) [Entitic vol] 92 fL Normal 81-100 [facility] Comment on above: Performed By: #### 1 [id number], [id number], [id number] ####[facility] (DEFAULT)[address] [place] [address] 52391 Platelet 281 x10 Normal 138-427 [facility] Comment on above: Performed By: #### 1 [id number], [id number], [id number] ####[facility] (DEFAULT)[address] [place] [address] 12519 Platelet mean volume (Bld) [Entitic vol] 10.8 fL High 6.3-10.2 [facility] Comment on above: Performed By: #### 1 [id number], [id number], [id number] ####[facility] (DEFAULT)[address] [place] [address] 13627 RBC 3.83 x10 Normal 3.70-5.30 [facility] Comment on above: Performed By: #### 1 [id number], [id number], [id number] ####[facility] (DEFAULT)[address] [place] [address] 83897 WBC 8.9 x10 Normal 3.5-10.5 [facility] Comment on above: Performed By: #### 1 [id number], [id number], [id number] ####[facility] (DEFAULT)[address] [place] [address]7779 Electrolyte Panel Standardon 10-24-2020 Anion gap [Moles/Vol] 11.0 mmol/L Normal 5.0-19.0 [facility] Comment on above: Performed By: #### 1 [id number], [id number], [id number] ####[facility] (DEFAULT)[address] [place] [address] 99731 Chloride [Moles/Vol] 103 mmol/L Normal 101-111 [facility] Comment on above: Performed By: #### 1 [id number], [id number], [id number] ####[facility] (DEFAULT)[address] [place] [address] 12192 CO2 [Moles/Vol] 30 mmol/L Normal 21-32 [facility] Comment on above: Performed By: #### 1 [id number], [id number], [id number] ####[facility] (DEFAULT)[address] [place] [address]252 Potassium [Moles/Vol] 3.3 mmol/L Low 3.6-5.1 [facility] Comment on above: Performed By: #### 1 [id number], [id number], [id number] ####[facility] (DEFAULT)[address] [place] [address] 34732 Sodium [Moles/Vol] 141.0 mmol/L Normal 136.0-144 . 0 [facility] Comment on above: Performed By: #### 1 [id number], [id number], 5322441 ####[facility] (DEFAULT)[address] [place] [address] Pharmacy Noteon 10-24-2020 Pharmacy Note I have reviewed this patient's current medication list including prescription medications, OTC products, vitamins and supplements for the following: Med Rec: Complete Action: none required Held home medication(s): Continuing to hold Norvasc and HCTZ. Currently using formulary PPI - Pantoprazole Renal Function: Estimated CrCl: 42 ml/min Automatic pharmacy renal dose adjusted medication(s): None currently Action: _ _ Anticoagulation or Prophylaxis: _aspirin BID Action: continue to monitor Antibiotics: None _ Indication: Culture Results: Action: None required Pain Management: Scheduled non-narcotic: APAP IV x 24 hours Scheduled narcotic: prn narcotic pain medication(s): Oxycodone1 tab for moderate pain Oxycodone2 tabs for severe pain prn non-narcotic pain medication(s): Acetaminophen_IV switching to oral APAP today Action: _ Drug-Drug Interaction: Action: [Electronically Signed on: 10/24/2020 13:37 EDT] __ Andre Tinoco RPh [Verified on: 10/24/2020 13:37 EDT] __ Andre Tinoco RPh [facility] Progress Note - Nurseon 10-06 Progress Note - Nurse Pt disoriented to where she is I want something but I'm not sure what it is . Pt reports her right leg is still very painful, medicated her with 1mg IVP MS. [Electronically Signed on: 10/24/2020 22:57 EDT] __ Madeleine Yoder RN [Verified on: 10/24/2020 22:57 EDT] __ Madeleine Yoder RN [facility] Progress Note - Nurse Pt. reports #9 Inner right knee pain. Pt. grimacing, gaurding, and appears very distressed. Pt. relates it is the worse pain she has had with her knee surgeries so far. Reports oxycodone did not work this time. Unsuccessful with several position changes. Polar care refreshed. Charge nurse informed. [Electronically Signed on: 10/24/2020 16:44 EDT] __ Kalpesh Walsh RN [Verified on: 10/24/2020 16:44 EDT] __ Kalpesh Walsh RN [facility] Anesthesia Noteon 10-23-2020 Anesthesia Note Patient: RAMY MADRIGAL Age: 85 years Sex: FEMALE : 1935 Associated Diagnoses: None Author: Robbie Nielson MD Postoperative Information Anesthetic utilized: Regional: Spinal with Femoral Nerve Block. Assessment Anesthetic outcome No anesthetic complications noted. Plan Transfer/ Discharge: Patient can be discharged from PACU when criteria met. Condition good. [Electronically Signed on: 10/23/2020 12:45 EDT] __ Robbie Nielson MD [Verified on: 10/23/2020 12:45 EDT] __ Robbie Nielson MD [facility] Anesthesia Note Patient: RAMY MADRIGAL Age: 85 years Sex: FEMALE : 1935 Associated Diagnoses: None Author: Robbie Nielson MD Preoperative Information Anesthesia history: Family history. Patient history: No prior anesthesia problems. Review of Systems Constitutional: Negative. Cardiovascular: No Chest Pain. No SOB. Health Status Allergies: Allergic Reactions (All) Mild Penicillin- Rash. Tape- Rash. Current medications: Home Medications (17) Active Allergy Relief 1 tab(s), PO, Daily Ambien 10 mg oral tablet 10 mg = 1 tab(s), PRN, PO, Once a day (at bedtime) amLODIPine 10 mg oral tablet 10 mg = 1 tab(s), PO, Daily aspirin 81 mg oral tablet 81 mg = 1 tab(s), PO, BID hydroCHLOROthiazide 25 mg oral tablet 25 mg = 1 tab(s), PO, Daily levothyroxine 75 mcg (0.075 mg) oral tablet 75 mcg = 1 tab(s), PO, Daily liothyronine 5 mcg oral tablet 5 mcg = 1 tab(s), PO, Daily lovastatin 40 mg oral tablet 40 mg = 1 tab(s), PO, Daily Metoprolol Succinate ER 50 mg oral tablet, extended release 50 mg = 1 tab(s), PO, Daily Nature's Bounty Red Krill Oil 500 mg oral capsule Percocet 5/325 oral tablet 1 tab(s), PRN, PO, q6hr Poly Iron 150 Forte oral capsule potassium chloride 20 mEq oral tablet, extended release 20 mEq = 1 tab(s), PO, BID PriLOSEC 10 mg oral delayed release capsule 10 mg = 1 cap(s), PO, Daily Vitamin B-12 100 mcg oral tablet 100 mcg = 1 tab(s), PO, Daily Vitamin B6 100 mg oral tablet 100 mg = 1 tab(s), PO, Daily Vitamin D3 1000 intl units oral capsule 1,000 International_Unit = 1 cap(s), PO, Every other day Problem list (past medical history): All Problems Arthritis / SNOMED CT 6362825 / Confirmed Hypertension / SNOMED CT 6924326942 / Confirmed Hypothyroidism / SNOMED CT 91193327 / Confirmed Insomnia / SNOMED CT 944914609 / Confirmed Osteopenia / SNOMED CT 524639994 / Confirmed Histories Family History: Cancer Sister COPD (chronic obstructive pulmonary disease) Father Sister Diabetes mellitus Mother Sister Alzheimers dementia Mother Procedure history: Arthroplasty of knee (36766978) on 05/26/2020 at 85 Years. Tonsillectomy (238053537). Appendectomy (625180974). Hysterectomy (041623628). Colonoscopy (394693368). Social History Electronic Cigarette/Vaping Assessment Electronic Cigarette Use: Never. Alcohol Assessment Use: Never. Tobacco Assessment Never (less than 100 in lifetime) Tobacco Use:. Substance Abuse Assessment Substance use: Never. . Social & Psychosocial Habits Alcohol 05/05/2020 Alcohol Use: Never Substance Abuse 09/25/2020 Substance use: Never Tobacco 05/05/2020 Smoking tobacco use: Never (less than 100 in l Electronic Cigarette/Vaping 05/05/2020 Electronic Cigarette Use: Never . Physical Examination Pain assessment: Self-reports no pain. General: Alert and oriented. Airway: Mallampati classification: II (soft palate, fauces, uvula visible). Temporomandibular joint mobility: Good. Mouth: Dentures ( Partial plate ). Respiratory: Lungs are clear to auscultation. Cardiovascular: Regular rhythm. Neurologic: Alert, Oriented. Review / Management Laboratory Results Plan [place] [employer]#( ASA) physical status classification: Class II. Anesthetic Preoperative Plan Anesthesia: Regional Spinal with Femoral Nerve Block. Anesthetic plan, risks, benefits, and alternatives discussed with the patient and/or family. Patient verbalized understanding. Informed consent was given. Anesthetic technique: Regional anesthesia, Neuraxial, Plan is for Right Adductor canal block for post op pain and SAB as primary anesthetic. Coversion to GA as necessary. All questions answered and informed consent obtained. . [Electronically Signed on: 10/23/2020 08:32 EDT] __ Robbie Nielson MD [Verified on: 10/23/2020 08:32 EDT] __ Robbie Nielson MD Normal [facility] MAGR Intraoperative Recordon 10-23-2020 MAGR Intraoperative Record MAGR Intra-Op Record Summary Primary Physician: Finalized Date/Time: 10/23/20 07:41:55 Pt. Name: RAMY MADRIGAL /Sex: 1935 FEMALE Med Rec #: [id number] Physician: CARMELITA YOUNG Financial #: [id number] Pt. Type: D Room/Bed: [facility] Admit/Disch: 10/23/20 05:52:00 - Institution: Case Times MAGR Entry 1 Patient In Room Time 10/23/20 07:22:00 Out Room Time 10/23/20 07:37:00 Anesthesia Start Time 10/23/20 07:25:00 Stop Time 10/23/20 07:37:00 Surgery Start Time 10/23/20 07:32:00 Stop Time 10/23/20 07:34:00 Last Modified By: Macey Negron RN 10/23/20 07:39:11 Case Attendance MAGR Entry 1 Entry 2 Entry 3 Case Attendee Robbie Nielson MD, Laura RN Draper, Lora RN Role Performed Anesthesiologist of Care Clinician Care Clinician Record Time In 10/23/20 07:22:00 10/23/20 07:22:00 10/23/20 07:22:00 Time Out 10/23/20 07:37:00 10/23/20 07:37:00 10/23/20 07:37:00 Procedure Adductor Canal Adductor Canal Adductor Canal Block(Right) Block(Right) Block(Right) Last Modified By: Macey Negron RN, Lora RN Draper, Lora RN 10/23/20 07:39:13 10/23/20 07:39:13 10/23/20 07:39:13 Surgical Procedures MAGR Pre-Care Text: A.20 Verifies operative procedure, surgical site, and laterality Im.150 Develops individualized plan of care Entry 1 Procedure Adductor Canal Block Primary Procedure Yes Primary Surgeon Robbie Nielson MD Modifiers Right Surgeon Comment ADDUCTOR CANAL BLOCK Start 10/23/20 07:32:00 PRIOR TO RIGHT TOTAL KNEE POSSIBLE STEMS AND AUGS POSSIBLE PATELLA AUGMENT SYSYEM - GORDY Stop 10/23/20 07:34:00 Anesthesia Type Regional Block Surgical Service Anesthesia Wound Class Clean Technique Details Closure Technique N/A Entire procedure No was performed via laparoscope or robotic assistance Last Modified By: Macey Negron RN 10/23/20 07:39:16 Post-Care Text: O.730 The patient's care is consistent with the individualized perioperative plan of care General Case Data MAGR Pre-Care Text: A.350.1 Classifies surgical wound Entry 1 Case Information OR MAGR Proc Room Case Level None Wound Class Clean Specialty Anesthesia ASA Class 2 Diagnosis Preop Diagnosis ADDUCTOR CANAL BLOCK Postop Same As Preop Yes PRIOR TO RIGHT TOTAL KNEE POSSIBLE STEMS AND AUGS POSSIBLE PATELLA AUGMENT SYSYEM - GORDY Postop Diagnosis ADDUCTOR CANAL BLOCK PRIOR TO RIGHT TOTAL KNEE POSSIBLE STEMS AND AUGS POSSIBLE PATELLA AUGMENT SYSYEM - GORDY Blunt or No Is the procedure No penetrating injury considered occured prior to Emergent/Urgent? the start of the procedure: Last Modified By: Macey Negron RN 10/23/20 07:36:13 Post-Care Text: O.760 Patient receives consistent and comparable care regardless of the setting Time Out MAGR Entry 1 Time out date/time 10/23/20 07:24:00 All team members Yes have introduced themselves by name and role Surgeon, Yes Surgeon reviews Yes anesthesia, nurse critical or confirm patient, unexpected steps, site, procedure operative duration, anticipated blood loss Anesthesia team Yes Nursing team Yes reviews any reviews sterility patient-specific (including concerns indicator results) and equipment issues/concerns Antibiotic Antibiotic N/A prophylaxis given within the last 60 minutes Is essential Yes imaging displayed? Last Modified By: Macey Negron RN 10/23/20 07:31:08 Patient Positioning MAGR Pre-Care Text: A.280 Identifies baseline musculoskeletal status Im.40 Positions the patient Im.80 Applies safety devices Entry 1 Procedure Adductor Canal Body Position Supine Block(Right) Left Arm Position Resting at Side Right Arm Position Resting at Side Left Leg Position Extended Right Leg Position Extended Feet Uncrossed? Yes Press Points Checked Yes Outcome Met (O.80) Yes Last Modified By: Macey Negron RN 10/23/20 07:31:20 Post-Care Text: E.290 Evaluates musculoskeletal status O.80 Patient is free from signs and symptoms of injury related to positioning Skin Prep MAGR Pre-Care Text: A.30 Verifies allergies Im.270 Performs skin preparation Im.270.1 Implements protective measures to prevent skin and tissue injury due to chemical sources Entry 1 Skin Prep Syntegrity Prep Agents (Im.270) Chlorhexidine Gluconate Prep By Robbie Nielson MD and Alcohol Prep Area (Im.270) Thigh Prep Area Details Right Skin Prep Agent Dry Yes Without Pooling Hair Removal Syntegrity Hair Removal Methods No hair removal performed Outcome Met (O.100) Yes Last Modified By: Macey Negron RN 10/23/20 07:31:44 Post-Care Text: E.10 Evaluates for signs and symptoms of physical injury to skin and tissue O.100 Patient is free from signs and symptoms of chemical injury Departure from OR MAGR Entry 1 Present on Depart N/A Via Stretcher Post-op Destination [place] [facility] Condition Warm Description Condition Dry Description Report Given To Sa (more content not included)... [facility] MAGR PACU Recordon MAGR PACU Record MAGR PACU Record Summary Primary Physician: CARMELITA YOUNG Finalized Date/Time: 10/23/20 13:32:37 Pt. Name: RAMY MADRIGAL/Sex: 1935 FEMALE Med Rec #: [id number] Physician: CARMELITA YOUNG Financial #: [id number] Pt. Type: D Room/Bed: [facility]/ Admit/Disch: 10/23/20 05:52:00 - Institution: PACU Case Times MAGR Entry 1 In PACU I 10/23/20 12:15:00 Discharge from PACU 10/23/20 13:20:00 I Last Modified By: Rosas Da Silva RN 10/23/20 13:32:30 Finalized By: Rosas Da Silva RN Document Signatures Signed By: Rosas Da Silva RN 10/23/20 13:32 [facility]2020 MAGR Preoperative Record MAGR Pre-Op Rec ord Summary Primary Physician: CARMELITA YOUNG Finalized Date/Time: 10/23/20 07:47:17 Pt. Name: RAMY MADRIGAL D.O.B./Sex: 1935 FEMALE Med Rec #: [id number] Physician: CARMELITA YOUNG Financial #: [id number] Pt. Type: D Room/Bed: 221/1 Admit/Disch: 10/23/20 05:52:00 - Institution: Pre-Op Case Times MAGR Pre-Care Text: Patient will be optimally prepared for surgery. Patient is free from s/s of injury. Provide information to patient/family related to plan of care. Verify patient allergies. Confirm identity and verify consent before the operative or invasive procedure. Entry 1 Patient Arrival Time 10/23/20 06:00:00 Preop Departure 10/23/20 07:37:00 Last Modified By: Macey Negron RN 10/23/20 07:47:16 Post-Care Text: Patient is prepared mentally and physically and is ready for surgery. The patient remains free from s/s of injury. Patient/family express understanding of plan of care and participate in decisions affecting his or her perioperrative plan of care. Allergies documented appropriately. Patient identifiers and consent correct. General Comments: Pt arrived ambulatory with walker to psw. Denies SOB, chest pain, or fever. Denies pacemaker. Denies sleep apnea. Finalized By: Macey Negron RN Document Signatures Signed By: Macey Negron RN 10/23/20 07:47 [facility] Nutrition Noteon 10-23-2020 Nutrition Note Pt admitted for scheduled Rt knee surgery. Pts diet advanced as tolerated to 3000kcal DM, Regular w/ Boost Glucose Control BID. Pt without hx of DM; will adjust diet to Regular w/ in house available Ensure Compact BID. Usual post op vitamins/minerals also in place. No wt hx available. Minimal pre-op labs also available for review. Pt at high nutrition risk r/t age greater than 65y and surgery, however, no immediate nutrition concerns at this time. Will monitor intake, wts and labs. [facility] Pharmacy Noteon 10-23-2020 Pharmacy Note I have reviewed this patient's current medication list including prescription medications, OTC products, vitamins and supplements for the following: Med Rec: Complete Action: none required Held home medication(s): Norvasc and HCTZ. Currently using formulary PPI - Pantoprazole Renal Function: Estimated CrCl: 42 ml/min Automatic pharmacy renal dose adjusted medication(s): None currently Action: _ _ Anticoagulation or Prophylaxis: _aspirin BID Action: continue to monitor Antibiotics: _ _ Clindamycin for surgical prophylaxis x 1 due to PCN allergy Indication: Prophylaxis Culture Results: Action: None required Pain Management: Scheduled non-narcotic: APAP IV x 24 hours Scheduled narcotic: prn narcotic pain medication(s): OxycodoneModerate pain1 tab OxycodoneSevere pain2 tabs prn non-narcotic pain medication(s): Acetaminophen_ Action: _ Drug-Drug Interaction: Action: Other: [Electronically Signed on: 10/23/2020 15:27 EDT] __ Andre Tinoco RPh [Verified on: 10/23/2020 15:27 EDT] __ Andre Tinoco RPh [facility] Progress Note - Nurseon - Progress Note - Nurse Sat in chair this afternoon for approx. 45 minutes. Parris.fair, c/o dizziness et assisted back to bed. BP 75/46. Color pale, skin warm et dry. Symptoms subsided after return to bed. Blood pressure shows improvement. Denies nausea. Ate well this pm. Drsg. remains dry et intact on right knee. Toes pink et warn right foot. Polar care in place. [Electronically Signed on: 10/23/2020 17:59 EDT] __ Shari Reynolds RN [Verified on: 10/23/2020 17:59 EDT] __ Shari Reynolds RN [facility] UA w Culture if Ind Standard on 10-23-2020 Breakpoint UA [facility] Comment on above: Order Comment: pham insert Performed By: #### 1 [id number], [id number] #### [facility] (DEFAULT) [address] [place] [address]154 Color (U) Yellow Normal [facility] Comment on above: Order Comment: pham insert Performed By: #### 1 [id number] #### [facility] (DEFAULT) [address] [place] [address] 00334 Culture? Not Indicated Invalid Interpretation Code [facility] Comment on above: Order Comment: pham insert Performed By: #### 1 [id number], [id number] #### [facility] (DEFAULT) [address] [place] [address] 72817 Glucose (U) [Mass/Vol] Negative [facility] Comment on above: Order Comment: pham insert Performed By: #### 1 [id number], [id number] #### [facility] (DEFAULT) [address] [place] [address] 89468 Ketones Ql (U) Negative [facility] Comment on above: Order Comment: pham insert Performed By: #### 1 [id number], [id number] #### [facility] (DEFAULT) [address] [place] [address] 08904 Micro? Not Indicated Invalid Interpretation Code [facility] Comment on above: Order Comment: pham insert Performed By: #### 1 [id number], [id number] #### [facility] (DEFAULT) [address] [place] [address] 48056 UA Bilirubin Negative [facility] Comment on above: Order Comment: pham insert Performed By: #### 1 [id number], [id number] #### [facility] (DEFAULT) [address] [place] [address] 03793 UA Blood Negative Normal [facility] Comment on above: Order Comment: pham insert Performed By: #### 1 [id number], [id number] #### [facility] (DEFAULT) [address] [place] [address] 06987 UA Clarity CLEAR Normal CLEAR [facility] Comment on above: Order Comment: pham insert Performed By: #### 1 [id number], [id number] #### [facility] (DEFAULT) [address] [place] [address] 55344 UA Leuk Est Negative Normal NEGATIVE [facility] [facility] Comment on above: Order Comment: pham insert Performed By: #### 1 [id number], [id number] #### [facility] (DEFAULT) [address] [place] [address] 76511 UA Nitrite Negative Normal NEGATIVE [facility] Comment on above: Order Comment: pham insert Performed By: #### 1 [id number], [id number] #### [facility] (DEFAULT) [address] [place] [address] 48985 UA pH 6.0 Normal 5-8 [facility] Comment on above: Order Comment: pham insert Performed By: #### 1 [id number], [id number] #### [facility] (DEFAULT) [address] [place] [address] 49253 UA Protein Negative Normal NEGATIVE [facility] Comment on above: Order Comment: pham insert Performed By: #### 1 [id number], [id number] #### [facility] (DEFAULT) [address] [place] [address] 78829 UA Spec Grav <=1.005 Normal 1.001-1.[address] [place] [address] Comment on above: Order Comment: pham insert Performed By: #### 1 [id number], [id number] #### [facility] (DEFAULT) [address] [place] [address] 96119 UA Urobilinogen 0.2 mg/dL Normal 0.2-1.0 [facility] Comment on above: Order Comment: pham insert Performed By: #### 1 [id number], [id number] #### [facility] (DEFAULT) [address] [place] [address] 51755 Urine Source Clean Catch Normal [facility] Comment on above: Order Comment: pham insert Performed By: #### 1 [id number], [id number] #### [facility] (DEFAULT) [address] [place] [address] 12867 XR Fluoroscopy Up to 1 Houro n 10-23-2020 XR Fluoroscopy Up to 1 Hour EXAM: XR Kne e One or Two Views Right, XR Fluoroscopy Up to 1 Hour HISTORY: SURGERY COMPARISON: Right knee study dated 05/26/2020. TECHNIQUE: A single frontal spot film view of the right knee was obtained. Total fluoroscopy time for the procedure was 46.0 seconds. FINDINGS: The study demonstrates interval absence of the stabilizing wire and pin seen in the patella compatible with surgical removal. There is a postoperative clip suggested laterally at the distal femoral level, correlate with procedure. Soft tissue air suggested compatible with recent surgery. Moderate to marked narrowing of the medial compartment. IMPRESSION: Right knee study demonstrates unremarkable postoperative changes as described. Fluoroscopy was utilized by the surgeon during this procedure. Final Dictated by: Rigo Braun MD Dictated DT/TM: 10/23/20 10:29 Signed (Electronic Signature): Rigo Braun MD 10/23/20 11:41 a Technologist: [facility] XR Knee One or Two Views [facility] 10-23-2020 XR Knee One or Two Views Right EXAM: XR Knee One or Two Views Right HISTORY: prosthesis placement COMPARISON: Right knee study dated 05/26/2020 and right knee study performed earlier today on 10/23/2020 TECHNIQUE: AP and lateral views of the right knee were obtained. FINDINGS: There are prosthetic devices about the distal femur and tibial plateau in satisfactory position and alignment. Postoperative change about the posterior patellar region appears grossly unremarkable. Soft tissue swelling and air noted primarily anteriorly compatible with recent surgery. Postoperative johnathon noted anteriorly. No definite acute fracture or dislocation. IMPRESSION: Right knee study demonstrates grossly unremarkable post arthroplasty changes as described. Follow-up as needed. Final Dictated by: Rigo Braun MD Dictated DT/TM: 10/23/20 3:40 Signed (Electronic Signature): Rigo Braun MD 10/23/20 3:42 pm Technologist: [facility] XR Knee One or Two Views Right EXAM: XR Knee One or Two Views Right, XR Fluoroscopy Up to 1 Hour HISTORY: SURGERY COMPARISON: Right knee study dated 05/26/2020. TECHNIQUE: A single frontal spot film view of the right knee was obtained. Total fluoroscopy time for the procedure was 46.0 seconds. FINDINGS: The study demonstrates interval absence of the stabilizing wire and pin seen in the patella compatible with surgical removal. There is a postoperative clip suggested laterally at the distal femoral level, correlate with procedure. Soft tissue air suggested compatible with recent surgery. Moderate to marked narrowing of the medial compartment. IMPRESSION: Right knee study demonstrates unremarkable postoperative changes as described. Fluoroscopy was utilized by the surgeon during this procedure. Final Dictated by: Rigo Braun MD Dictated DT/TM: 10/23/20 10:29 Signed (Electronic Signature): Rigo Braun MD 10/23/20 11:41 a Technologist: [facility] Progress Note - Nurseon 10-06 Progress Note - Nurse Spoke with pt regarding arrival time of 0600 and NPO after midnight. Verbalized understanding. [Electronically Signed on: 10/22/2020 09:15 EDT] __ Ruby Chi RN [Verified on: 10/22/2020 09:15 EDT] __ Ruby Chi RN [facility] Provider Orderson 10-16-2020 Provider Orders [id number] 98#[id number] [facility] Coding Summaryon 09-28-2020 Coding Summary HTMLBase 64 GtbrtptpIDz3lKq+PGh lYWQ+DQ0CHBFsS80dtW KyoT7IK8xCIT3HWRLNH FGHPX8PDI4fcIC7ZGeo X2BjisNu VexwwBEbPI48IGw0SWV 1nJlbTCzzdY0gsIXzB4 d0TcYpUC60vJ20GUmaO EMfGoF6AlEwcbrpaYPw X9ayPnLrcPAuVdi+PHR hYmxlIHdpZHRoPScxMD SkJtQqyChnIN5oDf1yE GVyLWNvbGxhcHNlOiBj a8wsRUUgQGhaEO8vpSs vN5CpvRZ8BFMqa2g3Jv 48dHI+HHNyDPX1xFjhJ Swtj613QeOpb7hmQNX2 gAXvJOfkHTD6I40lf7J 2ZWAzIQEdMMM5bDQ0sV 9fnLncklkaK8IrnTFsY kO1WRW7gFEbxV3zmWok myhzaX3aGzb+V79DRX4 RZXHSFO0XLzl8D1ZaZf wvdHI+SL23KVUaDW24a QKlpUGft3gmbMb6DyXr PBCqNZG4iFpwDZbum5O uQAHkL04waQVnl9U5KD UffQjdbAImPvVlaFE9g Z4nRFgztxwdw0nozfip Ktbdn0ylzi76dV30W07 fXSikHMDmLPM0MJBeTI TnvUxujy5ftX0nQy5+I Lyut3ntd9dcsWi8UnFs OUQrqfSabTgvSHK3d8X mOl62P5VioQyou0DqGu d1qz60sDYcj0I7xLQ7H WfhAZRszO3jSIhiGcS4 SPEaLdNrhD31tRRhPMn rNc6wnXomgVsxHE4vZD AeixgvPHEimN2rWTUcu KSiiHfvLV1gVCNoqbnc v433GtNoPMG2JRWjeLX uB6WgzK8pSgDuNNKyGD DcU6McrPLwTWtnX705F FkrLvY8OLFqgfWlC1Mc VTLbzWdzKhU9j1U2Tz1 Ey3BaeayhHKO9DJkvDP R2TlF9IgOkVxL3G9HtA pr9CNRmlVwsBG9hQ2Xc IDEvuymwbqqfzOV9KRV cIEIleC04dZSuAFliSh 5tt4I1n707TBGaLKKtn X06Cs6noGtuRDCroLVQ xA8nggztj6yvelpmDiO uBKRaRYr5ARl5QCQlhB phHuAvIIO7ChK2TVB8s MSmbH0plAcfkixiuD8o Oyc+Q73ooI1qGAJ0IQB 4ajynPOSivhFrZS75PS 71Y3MtFdtkuBTgtHQ+P FWkmbOoxBdzAU9oSpBl a2itl2JnQQovX0ZrELT iDJmrYay1DSTyPUB2pR O3qM9fFBDuHHnpj9G7m AG9C5XobgGblm9ln5md PKYyPJnxI55ogALhs1T 0EKCujBB6ZUKgjRawSv KexE05Mip+PGNvbGdyb 6XgXwlvu5bsi6vrrNp9 IjMwJSIgdmFsaWduPSJ 0p0IwEu71K38oMFtxYR RoPSIxNSUiIHZhbGlnb j3ayN4jHa8+PGNvbCB3 mWM7lZ8iLASpNxR3YLr oQ141JyMivFHtVsjcu1 rub4zygRg2LzHrLQDif eLauJexFVE8l3EhLj23 N35qADuxDVIrVJScXIR tFHQoaOnlbp7zzF8bHv 8+TJ4ri4sxmo91xS32t HI+IOFfVDN1vOseIKdh CRTppA2rQPbfDeO1NXZ rGcDqyQ33kLZtBTwzNi 8isVxciLkwBH9wTQOcx mlxr136UbNan6qaVBGx aIWwIMudOKM6H27xp9Q 5DSMxLHAsKDO8tLQ4tA 1hbGlnbjogbGVmdDsgd oJoyUqhBKrkJHtrJ982 IHRvcDsnPlBhdGllbnQ vQcLhKHd3E7GwJrz8NH OdnWyqAR6whNPgVLnmK r1reHejuMqtOJ3kGCKb zdomo698FtUkw9taHYU ukNYvKJnoXJW8M10zb9 L4SVFoILSiVSH8wCB7e N0wbNwrkwzrpDAbkOwd zlYleWcaCKcwHCsjR38 6IHRvcDsnPkJpcnRoIE YvdCG8CB61UY14hFGkn 7J1nUI2X8QrJHSxvzfc tklerDO1JSApORWqrG7 1Sc3ixOtzUw8qTQXiSM Y9OJGoePPwT7OcfI6gN jCyHLNlYXUxE0EejWBj XNkiZ456JMweKyG4WUQ niuLzF2DzMWMbqUnmTk F4k0J9Od3OL8Q3OU56I P85sKYky3U2rVN5V4Yr TYUvldqhnxtjcFU3KQW jOIUevP59Ua7vpWxzJb 0zEKMoKUG1JWRbwGBaT 4LzoA4yAyHtXPSeCANg M4EcdSTdGIeyP356GGo lWyZ0LBSbzsFbJ8BeTF NduYuoKcZ6v6E0Ow8BI Wt8LK25ZH58pPPwl3F9 mAN0Z2OpMONvkqgcsex zuEU6RAAkWOSxfU17Il 4svHshAy5aRVSdYUD7E GAqoOEkB4GrbJ0uRoYv LIQcDRJiT0ExaELsOVr qB084DVblSaJ9ZRNtse DyJ1ZvQAHcuNggBxC3d 8F5Td1PNDKpOJ58WFY6 kYS6DY00SB56S7MuLgx vdGFibGU+PHRhYmxlIH dpZHRoPScxMDAlJyBzd JwkWR5xAl2vHGUsYZOh dReenNIgXbWqm1qaZUC yQNbnKV9boBrpI0FnlW A8CMQog2h4Dt82L37gX 3JvdXA+KFOyrJS4aGF3 kA7nYoEvUlO7LMerR73 4ZzZbhPHmExltu7mrh7 qapGv5UyL4IMHeavZly RplRBH1w0TcDs06X39b IHdpZHRoPSIxNSUiIHZ uwQxktm8prM7yZl6+PG WtgVZ0jLL5cY7cErIiZ pI9LIqmQ074CxWzaIYz Wzksu5hnu1ogfYr3ObN qQYNzvvLtxVxaUOB5t9 BgWk57E2MmsEdnt1ElA kq7in36cMDib7I0sGK9 C0PkCKWkeyhdlOMcyIg wPD3xXNKnocchXULnfW 1tTQAlA1t1RnSqBuB1P JvdV1ByejT7GBYfkMMf LCozZWP1G25vk5E9JSV iNSIqFZU5aII6hG2opD lnbjogbGVmdDsgdmVyd GcdYMunTTihB082WGDx eXkxSRQonD6nZPCjaDX beYouUH5xMPYelywsRh hFWc5SOvbmZDBZM8XNR BYjXNFSHh7KRQ98WB63 bLLik0A4fIY3T2PePSX spznhgeiwyDW7WNOxRE IhuG90gUAgQIjxHy7sw 2X2g662GWDtWKKxoI63 Do7ebEgaFEGerBEDkO6 ekgdec0lrfotbBwGxVS ReQDt4WYb7UEYphFulK oBjZJQ5FrO4PDX3rQRn lA3cfPvajivfcT8eSzr +MTIvMDUvMTkzNzwvdG Q+RBUlKHR9nXkhBTpfD TQfqF1bZIQwX0x0JlLj VtX6OTkzJ1ZcVYPojas uQb93aP0xJcChSbD5AE clZ7PfurX8NRHznWPkO XbePGK6V37dt4Y3MLBy KMByERF9yAF8bN7fhKz nbjogbGVmdDsgdmVydG yeZCjtMHquS595BYAol SyeTcinNEzjWWWgUE80 LT91pWVmb8B4ePX3O9P wSXXjfuryywavcQV6US SmHYXbcW86tXUlJUdhW v5xn9C5m557MWNbILGm uL84Nm7ybJhhULIyhOG DlX6fxuvbz1sjqzpcEb BiXOGbGFw2KEp5WWRxy FhmRxNbSGL2KeG4AKS6 rDElvN9bsWkzzdigiR0 wOyc+HgXABKnPEU86YZ 79dDTba2L9eGE1I7XtD FDzvocovlwigOH5QJPw NYHslT78cNKoSHtvPw0 zs2W8h393HCIuTHKmjL 30Fc2ciGqmLAXpbTFPm B6ogqlns6bgdwhbNyMy CNGkOGq5COj1LDDjfGq wWaIsOLQ0BzL7IHK7vS SwmU5vgOkfqphpjF3cR yc+L4A0G5RkDydziYP+ BZ82HIRmFQ42hMZcyWJ sn2qrdOw5YnRbQPVbCL A3tPbnMNjhw3BxVGDaQ 89ywBJzr1B6CKQwfJas zZLyGaDbrEM9bP6tHBx nwsrba3ebovjjDefma2 kyrc87uP06L23sQPshK HRoPSIzMCUiIHZhbGln xw0unE8xZy8+PGNvbCB 9xCX7hQ9xAkDrKdX0XB mmC179RvZolKVeFlpdo 0ttt4qhjOi5AcPoJYIv rcGxoRhtTGQ0o1LfSj1 6M36mCMhkQDOuYJCeZS XbSVZszUinua7dxB4wT i8+JV5rg7cyza36oC72 dHI+HEFdBDH5tYixLCv nKPRohQ0yKYdkJoC3WK GqNbUkaH66pWNfCOqgO c8lmIxwfXuuYB0xQRPr kzbup871WaWzk4ufZIT ouZVmQOpwVFF3Q68st1 P7UKNgYHIgLXB2gVQ1r R1mhWtftrimeTWqlOzm cwMuxVbbMFkmCWarO34 9LYZxfUrjEcWlyJEbK9 qxveBDXI7mWkxgqRS+P THmPGP2cPoiZLcaCOJq mW8kNWEbN7e7RlFrAaD 0RJpcN1ZcybQ3TSUjbO WyYATzjJRObM3qudlmx 3utvemhOfKvZACqFLk5 MWc4ISFnuQdwFnUrBDX 8WrP5BEC8fHRedR0znK vbtslosY3nHwy+RklOO jwvdGQ+OFUnESR0fEty KLedAQFrcS4mHOMyP7z 2PaBrBbD0VMrmH9Byvy P0FMQquNNfPKAwpRBNg H6rudtdc6ougpfpUwJs OAYrKIv0NAq9RPYwqKn pPfPfEHL8FdB0ONF8oU AqkP8oaEhgjrfjyQ0mO yc+TVJOOjwvdGQ+PHRk YQR3qZbyXCgdDLMhoO0 xDHGeI9i9LtWbVjI6BT ymI1YgyrQ2IZWzpRRlE DLfpOJXrB8tdcyzm3eg xnycPiXyGPGwIAg1OMl 7FRZkoXorYwIeDCQ0Kj H2TJL0wKVwrJ8jkYous estcG4oGtw+YUX4AGK9 RO23SY69A2SwPfmjrRO ibGU+PHRhYmxlIHdpZH RoPScxMDAlJyBzdHlsZ V3jYm8oRTIdMXKqcYts cHN (more content not included)... [facility] Progress Note - Nurseon 05-2 Progress Note - Nurse PAT review done suki Nielson, no orders received. [Electronically Signed on: 09/28/2020 12:31 EDT] __ Marycarmen Frost RN [Verified on: 09/28/2020 12:31 EDT] __ Marycarmen Frost RN Normal [facility] Provider Orderson 09-28-2020 Provider Orders [id number] B3#1.00OTGTIFF [facility] .Auto Diff 109-25-2020 Auto [place] % 8 % Normal 12 [facility] Comment on above: Performed By: #### 1 [id number], [id number] #### [facility] (DEFAULT) [address] [place] [address] Baso Abs# 0.2 x10 Normal 0.0-0.2 [facility] Comment on above: Performed By: #### 1 [id number], [id number] #### [facility] (DEFAULT) [address] [place] [address] 72836 Basophils/100 WBC (Bld) 1.7 % Normal 0.2-2.0 [facility] Comment on above: Performed By: #### 1 [id number], [id number] #### [facility] (DEFAULT) [address] [place] [address] 66762 Eos Abs# 0.2 x10 Normal 0.0-0.4 [facility] Comment on above: Performed By: #### 1 [id number], [id number] #### [facility] (DEFAULT) [address] [place] [address] 98562 Eosinophils/100 WBC (Bld) 1.7 % Normal 0.9-4.0 [facility] Comment on above: Performed By: #### 1 [id number], [id number] #### [facility] (DEFAULT) [address] [place] [address] 46311 Lymph Abs# 3.4 x10 High 1.3-2.9 [facility] Comment on above: Performed By: #### 1 [id number], [id number] #### [facility] (DEFAULT) [address] [place] [address] 29773 Lymphocytes/100 WBC (Bld) 27 % Normal 14-48 [facility] Comment on above: Performed By: #### 1 [id number], [id number] #### [facility] (DEFAULT) [address] [place] [address] 87440 [place]kin Abs# 1.0 x10 High 0.0-0.8 [facility] Comment on above: Performed By: #### 1 [id number], [id number] #### [facility] (DEFAULT) [address] [place] [address] 85120 Neut Abs# 7.7 x10 Normal 1.5-9.2 [facility] Comment on above: Performed By: #### 1 [id number], [id number] #### [facility] (DEFAULT) [address] [place] [address] 53687 Neutrophils/100 WBC (Bld) 62 % Normal 44-88 [facility] Comment on above: Performed By: #### 1 [id number], [id number] #### [facility] (DEFAULT) [address] [place] [address] Standardon 09-25-2020 eGFR Non AA >60 Invalid Interpretation Code [facility] Comment on above: Performed By: #### 1 [id number], [id number] #### [facility] (DEFAULT) [address] [place] [address] 34797 eGFR AA >60 Invalid Interpretation Code [facility] Comment on above: Result Comment: Controller Instructor brodie Kidney disease could be indicated at eGFRs of less than 60 ml/min/1.73m2. Kidney Failure is indicated at less than 15 ml/min/1.73m2 Performed By: #### 1 [id number], [id number] #### [facility] (DEFAULT) [address] [place] [address] 15776 Anion gap [Moles/Vol] 17.0 mmol/L Normal 5.0-19.0 [facility] Comment on above: Performed By: #### 1 [id number], [id number] #### [facility] (DEFAULT) [address] [place] [address] 34482 Calcium [Mass/Vol] 9.9 mg/dL Normal 8.9-10.3 [facility] Comment on above: Performed By: #### 1 [id number], [id number] #### [facility] (DEFAULT) [address] [place] [address] 91422 Chloride [Moles/Vol] 97 mmol/L Low 101-111 [facility] Comment on above: Performed By: #### 1 [id number], [id number] #### [facility] (DEFAULT) [address] [place] [address] 29924 CO2 [Moles/Vol] 26 mmol/L Normal 21-32 [facility] Comment on above: Performed By: #### 1 [id number], [id number] #### [facility] (DEFAULT) [address] [place] [address] 58707 Creatinine [Mass/Vol] 0.81 mg/dL Normal 0.60-1.30 [facility] Comment on above: Performed By: #### 1 [id number], [id number] #### [facility] (DEFAULT) [address] [place] [address] 71367 Glucose [Mass/Vol] 127.0 mg/dL High 74.0-118.0 [facility] Comment on above: Performed By: #### 1 [id number], [id number] #### [facility] (DEFAULT) [address] [place] [address] 77183 Osmolality 276 mOsm/L Invalid Interpretation Code [facility] Comment on above: Performed By: #### 1 [id number], [id number] #### [facility] (DEFAULT) [address] [place] [address] 77661 Potassium [Moles/Vol] 3.9 mmol/L Normal 3.6-5.1 [facility] Comment on above: Performed By: #### 1 [id number], [id number] #### [facility] (DEFAULT) [address] [place] [address] 50939 Sodium [Moles/Vol] 136.0 mmol/L Normal 136.0-144 . 0 [facility] Comment on above: Performed By: #### 1 [id number], [id number] #### [facility] (DEFAULT) [address] [place] [address] 22619 Urea nitrogen [Mass/Vol] 19 mg/dL Normal 8-26 [facility] Comment on above: Performed By: #### 1 [id number], [id number] #### [facility] (DEFAULT) [address] [place] [address] 17930 Urea nitrogen/Creatinine [Mass ratio] 23.0 mg/mg High 4.6-16.2 [facility] Comment on above: Performed By: #### 1 [id number], [id number] #### [facility] (DEFAULT) [address] [place] [address] CBC w/ Auto Diffon 1 Erythrocyte distribution width (RBC) [Ratio] 15.1 % High 11.5-15.0 [facility] Comment on above: Performed By: #### 1 [id number], [id number] #### [facility] (DEFAULT) [address] [place] [address] Hematocrit (Bld) [Volume fraction] 42.8 % High 33.7-40.4 [facility] Comment on above: Performed By: #### 1 [id number], [id number] #### [facility] (DEFAULT) [address] [place] [address] 32265 Hemoglobin (Bld) [Mass/Vol] 14.5 g/dL Normal 11.3-15. 9 [facility] Comment on above: Performed By: #### 1 [id number], [id number] #### [facility] (DEFAULT) [address] [place] [address] 39629 Instr WBC 12.5 x10 Invalid Interpretation Code [facility] Comment on above: Performed By: #### 1 [id number], [id number] #### [facility] (DEFAULT) [address] [place] [address] 43047 Man Diff? Auto Normal [facility] Comment on above: Performed By: #### 1 [id number], [id number] #### [facility] (DEFAULT) [address] [place] [address] 12659 MCH (RBC) [Entitic mass] 30 pg Normal 24-34 [facility] Comment on above: Performed By: #### 1 [id number], [id number] #### [facility] (DEFAULT) [address] [place] [address] MCHC (RBC) [Mass/Vol] 34 g/dL Normal 26-37 [facility] Comment on above: Performed By: #### 1 [id number], [id number] #### [facility] (DEFAULT) [address] [place] [address] 08510 MCV (RBC) [Entitic vol] 88 fL Normal 81-100 [facility] Comment on above: Performed By: #### 1 [id number], [id number] #### [facility] (DEFAULT) [address] [place] [address] Platelet 443 x10 High 138-427 [facility] Comment on above: Performed By: #### 1 [id number], [id number] #### [facility] (DEFAULT) [address] [place] [address] Platelet mean volume (Bld) [Entitic vol] 9.6 fL Normal 6.3-10.2 [facility] Comment on above: Performed By: #### 1 [id number], [id number] #### [facility] (DEFAULT) [address] [place] [address] RBC 4.87 x10 Normal 3.70-5.30 [facility] Comment on above: Performed By: #### 1 [id number], [id number] #### [facility] (DEFAULT) [address] [place] [address] WBC 12.5 x10 High 3.5-10.5 [facility] Comment on above: Performed By: #### 1 [id number], [id number] #### [facility] (DEFAULT) [address] [place] [address] UA w Culture if Ind Standard on 09-25-2020 Breakpoint UA Normal [facility] Comment on above: Performed By: #### 1 [id number], [id number] #### [facility] (DEFAULT) [address] [place] [address] 29990 Color (U) Yellow Normal [facility] Comment on above: Performed By: #### 1 [id number], [id number] #### [facility] (DEFAULT) [address] [place] [address] 29841 Culture? Not Indicated Invalid Interpretation Code [facility] Comment on above: Performed By: #### 1 [id number], [id number] #### [facility] (DEFAULT) [address] [place] [address] 66623 Glucose (U) [Mass/Vol] Negative Normal [facility] Comment on above: Performed By: #### 1 [id number], [id number] #### [facility] (DEFAULT) [address] [place] [address] 87727 Ketones Ql (U) Negative Normal [facility] Comment on above: Performed By: #### 1 [id number], [id number] #### [facility] (DEFAULT) [address] [place] [address] 58827 Micro? Not Indicated Invalid Interpretation Code [facility] Comment on above: Performed By: #### 1 [id number], [id number] #### [facility] (DEFAULT) [address] [place] [address] 93290 UA Bilirubin Negative Normal [facility] Comment on above: Performed By: #### 1 [id number], [id number] #### [facility] (DEFAULT) [address] [place] [address] 72916 UA Blood Negative Normal NEGATIVE [facility] Comment on above: Performed By: #### 1 [id number], [id number] #### [facility] (DEFAULT) [address] [place] [address] 46032 UA Clarity CLEAR Normal CLEAR [facility] Comment on above: Performed By: #### 1 [id number], [id number] #### [facility] (DEFAULT) [address] [place] [address] 86653 UA Leuk Est Negative Normal NEGATIVE [facility] Comment on above: Performed By: #### 1 [id number] #### [facility] (DEFAULT) [address] [place] [address] 85743 UA Nitrite Negative Normal NEGATIVE [facility] Comment on above: Performed By: #### 1 [id number] #### [facility] (DEFAULT) [address] [place] [address] 88184 UA pH 6.0 Normal 5-8 [facility] Comment on above: Performed By: #### 1 [id number], [id number] #### [facility] (DEFAULT) [address] [place] [address] 47589 UA Protein Negative Normal NEGATIVE [facility] Comment on above: Performed By: #### 1 [id number], [id number] #### [facility] (DEFAULT) [address] [place] [address] 28669 UA Spec Grav 1.010 Normal 1.001-1.[address] [place] [address] Comment on above: Performed By: #### 1 [id number], [id number] #### [facility] (DEFAULT) [address] [place] [address] 18125 UA Urobilinogen 0.2 mg/dL Normal 0.2-1.0 [facility] Comment on above: Performed By: #### 1 [id number], [id number] #### [facility] (DEFAULT) [address] [place] [address] 37114 Urine Source Clean Catch Normal [facility] Comment on above: Performed By: #### 1 [id number], [id number] #### [facility] (DEFAULT) [address] [place] [address] 75465 XR Bone Length Studies [facility] 09-25-2020 XR Bone Length Studies Scanograms EXAM: XR Bone Length Studies Scanograms HISTORY: X-Ray b/l leg length. COMPARISON: None. TECHNIQUE: Bone length study was performed. Images of the lower extremities as well as the pelvis were obtained in the upright position. FINDINGS: Right femoral bone length is approximately 49.0 cm. Right tibial bone length is approximately 36.5 cm. Length of the right lower extremity from the femoral head to the ankle mortise is 85.9 cm including the knee joint space. Left femoral bone length is approximately 49.0 cm. Left tibial bone length is approximately 36.5 cm. Length of the left lower extremity from the femoral head to the ankle mortise is approximately 86.0 cm including the knee joint space. Images demonstrate marked medial compartment narrowing of the right knee with postoperative changes overlying the right patella. No significant pelvic tilt identified. No definite acute fracture or dislocation. IMPRESSION: No significant bone length discrepancy as described. Marked medial compartment narrowing of the right knee joint. No significant pelvic tilt. Follow up as needed. Final Dictated by: Rigo Braun MD Dictated DT/TM: 09/28/20 6:11 Signed (Electronic Signature): Rigo Braun MD 09/28/20 4:05 pm Technologist: CRISTY LEON [facility] MAGR Postoperative Recordon 06-05-2020 MAGR Postoperative Record MAGR Phase II Record Summary Primary Physician: CARMELITA YOUNG Finalized Date/Time: 06/05/20 11:40:54 Pt. Name: RAMY MADRIGAL CYNTHIA Willis./Sex: 1935 FEMALE Med Rec #: [id number] Physician: CARMELITA YOUNG Financial #: [id number] Pt. Type: O Room/Bed: Formerly named [facility] Admit/Disch: 05/26/20 07:20:00 - 05/27/20 13:15:00 Institution: Phase II Case Times MAGR Pre-Care Text: Patient is free from s/s of injury. Patient remains free from compromised physical state related to surgery or anesthesia. Patient comfort maintained. Patient/family verbalize understanding of discharge instructions. Entry 1 In PACU II 05/26/20 15:08:00 Discharge from PACU 05/26/20 15:50:00 II Last Modified By: Charisse Santiago RN 06/05/20 11:40:51 Post-Care Text: The patient remains free from s/s of injury. Patient's vital signs stable, circulation maintained, return to preop mental and physical status, opsite/dressing intact, minimal or absent nausea and vomiting, tolerates po intake. Patient verbalizes adequate pain control. Patient/family express understanding of discharge instructions. General Comments: care per [address] [place] [address] Finalized By: Charisse Santiago RN Document Signatures Signed By: Giselle Mayer RN 05/28/20 14:53 Charisse Santiago RN 06/05/20 11:40 Unfinalized History Date/Time Username Reason for Unfinalizing Freetext Reason for Unfinalizing 06/05/20 11:40 MHRSCOTT Correct Documentation Correct times [facility] Coding Summaryon 05-29-2020 Coding Summary CODING DATE: 05/29/[address] [facility] STATUS: Home PAYOR: Medicare MC APC DESCRIPTION 5114 Level 4 Musculoskeletal Procedures ADMIT DX: REASON FOR VISIT DX: M17.11 Unilateral primary osteoarthritis, right knee FINAL DX: PRINCIPAL: M96.89 Other intraoperative and postprocedural complications and disorders of the musculoskeletal system SECONDARY: S82.041A Displaced comminuted fracture of right patella, initial encounter for closed fracture M17.11 Unilateral primary osteoarthritis, right knee I10 Essential (primary) hypertension E03.9 Hypothyroidism, unspecified K21.9 Gastro-esophageal reflux disease without esophagitis G47.9 Sleep disorder, unspecified E87.6 Hypokalemia Z79.899 Other half-way (current) drug therapy PYMT PROC APC STAT DESCRIPTION DOCTOR NAME DATE 13392 5114 J1 Open treatment of CARMELITA YOUNG 05/26/2020 patellar fracture, with internal fixation and/or partial or complete patellectomy and soft tissue repair RT Right side (used to identify procedures performed on the right side of the body) NOTE: The code number assigned matches the documented diagnosis and / or procedure in the patient's chart. However, the narrative phrase printed from the coding software may appear abbreviated, or result in slightly different terminology. Coded By: Sujey Rowley Date Saved: 05/28/2020 08:04 am [facility] Coding Summaryon 05-28-2020 Coding Summary CODING DATE: 05/28/[address] [facility] STATUS: Home PAYOR: Medicare MC APC DESCRIPTION 5114 Level 4 Musculoskeletal Procedures ADMIT DX: REASON FOR VISIT DX: M17.11 Unilateral primary osteoarthritis, right knee FINAL DX: PRINCIPAL: M96.89 Other intraoperative and postprocedural complications and disorders of the musculoskeletal system SECONDARY: S82.041A Displaced comminuted fracture of right patella, initial encounter for closed fracture M17.11 Unilateral primary osteoarthritis, right knee I10 Essential (primary) hypertension E03.9 Hypothyroidism, unspecified K21.9 Gastro-esophageal reflux disease without esophagitis G47.9 Sleep disorder, unspecified E87.6 Hypokalemia Z79.899 Other half-way (current) drug therapy PYMT PROC APC STAT DESCRIPTION DOCTOR NAME DATE 63367 5114 J1 Open treatment of CARMELITA YOUNG 05/26/2020 patellar fracture, with internal fixation and/or partial or complete patellectomy and soft tissue repair RT Right side (used to identify procedures performed on the right side of the body) NOTE: The code number assigned matches the documented diagnosis and / or procedure in the patient's chart. However, the narrative phrase printed from the coding software may appear abbreviated, or result in slightly different terminology. Coded By: Sujey Rowley Date Saved: 05/28/2020 08:04 am [facility] Consent Formson 05-28-2020 Consent Forms [id number] D7#1.00[facility] Outside Recordson 05-28-2020 Outside Records [id number] [facility] Tele[facility] Strips [id number] B9#1.00[facility] .Auto Diff 1on 05-27-2020 Auto [place] % 3 % Normal -12 [facility] Comment on above: Performed By: #### 1 [id number], [id number], [id number] ####[facility] (DEFAULT)[address] [place] [address]16 Baso Abs# 0.0 x10 Normal 0.0-0.2 [facility] Comment on above: Performed By: #### 1 [id number], [id number], [id number] ####[facility] (DEFAULT)[address] [place] [address]779 Basophils/100 WBC (Bld) 0.1 % Low 0.2-2.0 [facility] Comment on above: Performed By: #### 1 [id number], [id number], [id number] ####[facility] (DEFAULT)[address] [place] [address] 36577 Eos Abs# 0.0 x10 Normal 0.0-0.4 [facility] Comment on above: Performed By: #### 1 [id number], [id number], [id number] ####[facility] (DEFAULT)[address] [place] [address] 78908 Eosinophils/100 WBC (Bld) 0.0 % Low 0.9-4.0 [facility] Comment on above: Performed By: #### 1 [id number], [id number], [id number] ####[facility] (DEFAULT)[address] [place] [address] 66609 Lymph Abs# 1.1 x10 Low 1.3-2.9 [facility] Comment on above: Performed By: #### 1 [id number], [id number], 0857165 ####[facility] (DEFAULT)[address] [place] [address] 57061 Lymphocytes/100 WBC (Bld) 8 % Low 14-48 [facility] Comment on above: Performed By: #### 1 [id number], [id number], [id number] ####[facility] (DEFAULT)[address] [place] [address] 61001 [place] Abs# 0.5 x10 Normal 0.0-0.8 [facility] Comment on above: Performed By: #### 1 [id number], [id number], [id number] ####[facility] (DEFAULT)[address] [place] [address] 60535 Neut Abs# 12.6 x10 High 1.5-9.2 [facility] Comment on above: Performed By: #### 1 [id number], [id number], 0769613 ####[facility] (DEFAULT)[address] [place] [address] 05842 Neutrophils/100 WBC (Bld) 89 % High 44-88 [facility] Comment on above: Performed By: #### 1 [id number], [id number], 8476781 ####[facility] (DEFAULT)[address] [place] [address] 37511 CBC w/ Auto Diffon 1 Erythrocyte distribution width (RBC) [Ratio] 13.1 % Normal 11.5-15.0 [facility] Comment on above: Performed By: #### 1 [id number], [id number], 5243009 ####[facility] (DEFAULT)[address] [place] [address] Hematocrit (Bld) [Volume fraction] 41.6 % High 33.7-40.4 [facility] Comment on above: Performed By: #### 1 [id number], [id number], 5636247 ####[facility] (DEFAULT)[address] [place] [address] Hemoglobin (Bld) [Mass/Vol] 13.8 g/dL Normal 11.3-15. 9 [facility] Comment on above: Performed By: #### 1 [id number], [id number], 6386882 ####[facility] (DEFAULT)[address] [place] [address] Instr WBC 14.2 x10 Invalid Interpretation Code [facility] Comment on above: Performed By: #### 1 9386925, [id number], [id number] ####[facility] (DEFAULT)[address] [place] [address] Man Diff? Auto Normal [facility] Comment on above: Performed By: #### 1 [id number], [id number], 7075347 ####[facility] (DEFAULT)[address] [place] [address] 78275 MCH (RBC) [Entitic mass] 28 pg Normal 24-34 [facility] Comment on above: Performed By: #### 1 1568284, [id number], 0137386 ####[facility] (DEFAULT)[address] [place] [address] 55809 MCHC (RBC) [Mass/Vol] 33 g/dL Normal 26-37 [facility] Comment on above: Performed By: #### 1 [id number], [id number], 8717774 ####[facility] (DEFAULT)[address] [place] [address] 88173 MCV (RBC) [Entitic vol] 86 fL Normal 81-100 [facility] Comment on above: Performed By: #### 1 [id number], [id number], 9137647 ####[facility] (DEFAULT)[address] [place] [address] 61053 Platelet 293 x10 Normal 138-427 [facility] Comment on above: Performed By: #### 1 [id number], [id number], 2437339 ####[facility] (DEFAULT)[address] [place] [address] 48808 Platelet mean volume (Bld) [Entitic vol] 11.1 fL High 6.3-10.2 [facility] Comment on above: Performed By: #### 1 1474577, [id number], 5263273 ####[facility] (DEFAULT)[address] [place] [address] 31399 RBC 4.85 x10 Normal 3.70-5.30 [facility] Comment on above: Performed By: #### 1 7927328, [id number], 4874316 ####[facility] (DEFAULT)[address] [place] [address] 53338 WBC 14.2 x10 High 3.5-10.5 [facility] Comment on above: Result Comment: Slid e Reviewed Performed By: #### 1 [id number], [id number], [id number] ####[facility] (DEFAULT)[address] [place] [address] 60026 Electrolyte Panel Standardon 05-27-2020 Anion gap [Moles/Vol] 14.0 mmol/L Normal 5.0-19.0 [facility] Comment on above: Performed By: #### 1 [id number], [id number], 3609546 ####[facility] (DEFAULT)[address] [place] [address] 06094 Chloride [Moles/Vol] 101 mmol/L Normal 101-111 [facility] Comment on above: Performed By: #### 1 [id number], [id number], 0542411 ####[facility] (DEFAULT)[address] [place] [address] 00066 CO2 [Moles/Vol] 28 mmol/L Normal 21-32 [facility] Comment on above: Performed By: #### 1 6343835, [id number], 3645424 ####[facility] (DEFAULT)[address] [place] [address] Potassium [Moles/Vol] 3.5 mmol/L Low 3.6-5.1 [facility] Comment on above: Performed By: #### 1 1275624, [id number], 9008168 ####[facility] (DEFAULT)[address] [place] [address] Sodium [Moles/Vol] 139.0 mmol/L Normal 136.0-144 . 0 [facility] Comment on above: Performed By: #### 1 5737818, [id number], 4187775 ####[facility] (DEFAULT)[address] [place] [address] Inpatient Patient Summary 05-27-2020 Inpatient Patient Summary [address] [address] Patient Discharge Instructions Name: RAMY MADRIGAL : 1935 Patient Address: [address] [place] [address] Primary Care Provider: Name: SEVEN PALMER After you are discharged if you find you have any questions, please, call [phone] ext [phone] to speak to a nurse. Discharge Diagnosis: Closed comminuted fracture of right patella with routine healing; Hypertension Prescription Information: If you have been given a prescription for narcotics, seek immediate medical attention if you have any difficulty breathing or any sudden status changes such as confusion and sleepiness. If you or anyone you know is experiencing suicidal thoughts, mental health, alcohol and/or drug addiction problems; contact the [facility] 28/11 Crisis Hotline -Text 4HOPE to 057749. If you received any narcotics, sedation, or any other medication that causes drowsiness for the next 24 hours, unless otherwise directed: ? Do not drive a car. ? Do not operate machinery such as power tools, lawn mowers, drills, sewing machines, or stoves ? Avoid alcoholic beverages and drugs for allergies, nerves, or sleep ? Do not make important personal or business decisions or sign any legal documents [facility] would like to thank you for allowing us to assist you with your healthcare needs. The following includes patient education materials and information regarding your injury/illness. RAMY MADRIGAL has been given the following list of follow-up instructions, prescriptions, and patient education materials: Follow-up Instructions With: Address: When: Alex Guerin [address] [place] [address], [address] [place] [address] Business (1) 06/01/2020 10:45 AM Medications During the course of your visit, your medication list was updated with the most current information. The details of those changes are reflected below: New Medications Printed Prescriptions acetaminophen-oxyco done (Percocet 5/325 oral tablet) 1 tab(s) Oral every 6 hours as needed for pain for 7 Days. Refills: 0. Medications That Were Updated - Follow Below Instructions Other Medications Updated: aspirin (aspirin 81 mg oral tablet) 1 tab(s) Oral 2 times a day. Updated: lovastatin (lovastatin 40 mg oral tablet) 1 tab(s) Oral every day. Updated: zolpidem (Ambien 10 mg oral tablet) 1 tab(s) Oral once a day (at bedtime) as needed as needed for insomnia. Medications to Continue That Have Not Changed Other Medications amLODIPine (amLODIPine 10 mg oral tablet) 1 tab(s) Oral every day. cholecalciferol (Vitamin D3 1000 intl units oral capsule) 1 cap(s) Oral every other day. cholecalciferol (Vitamin D3 2000 intl units oral tablet) 1 tab(s) Oral every day. cyanocobalamin (Vitamin B-12 100 mcg oral tablet) 1 tab(s) Oral every day. hydroCHLOROthiazide (hydroCHLOROthiazid e 25 mg oral tablet) 1 tab(s) Oral every day. levothyroxine (levothyroxine 75 mcg (0.075 mg) oral tablet) 1 tab(s) Oral every day. liothyronine (liothyronine 5 mcg oral tablet) 1 tab(s) Oral every day. loratadine (Allergy Relief) 1 tab(s) Oral every day. metoprolol (Metoprolol Succinate ER 50 mg oral tablet, extended release) 1 tab(s) Oral every day. multivitamin with iron (Poly Iron 150 Forte oral capsule) TAKE 1 CAPSULE BY MOUTH ONCE DAILY FOR 30 DAYS. omeprazole (omeprazole 20 mg oral delayed release capsule) 1 cap(s) Oral every day. potassium chloride (potassium chloride 20 mEq oral tablet, extended release) 1 tab(s) Oral 2 times a day. pyridoxine (Vitamin B6 100 mg oral tablet) 1 tab(s) Oral every day. No Longer Take the Following Medications omega-3 polyunsaturated fatty acids ([employer]'s Bounty Red Krill Oil 500 mg oral capsule) 1 tab(s) Oral every day. It is important to always keep an active list of medications available so that you can share with other providers and manage your medications appropriately. As an additional courtesy, we are also providing you with your final active medications list that you can keep with you. acetaminophen-oxyco done (Percocet 5/325 oral tablet) 1 tab(s) Oral every 6 hours as needed for pain for 7 Days. Refills: 0. amLODIPine (amLODIPine 10 mg oral tablet) 1 tab(s) Oral every day. aspirin (aspirin 81 mg oral tablet) 1 tab(s) Oral 2 times a day. cholecalciferol (Vitamin D3 1000 intl units oral capsule) 1 cap(s) Oral every other day. cholecalciferol (Vitamin D3 2000 intl units oral tablet) 1 tab(s) Oral every day. cyanocobalamin (Vitamin B-12 100 mcg oral tablet) 1 tab(s) Oral every day. hydroCHLOROthiazide (hydroCHLOROthiazid e 25 mg oral tablet) 1 tab(s) Oral every day. levothyroxine (levothyroxine 75 mcg (0.075 mg) oral tablet) 1 tab(s) Oral every day. liothyronine (liothyronine 5 mcg oral tablet) 1 tab(s) Oral every day. loratadine (Allergy Relief) 1 tab(s) (more content not included)... [facility] Pharmacy Noteon 05-27-2020 Pharmacy Note Patient is a 85 Years yo FEMALE presenting with Diagnosis for this visit Essential (primary) hypertension Displaced comminuted fracture of right patella, subsequent encounter for closed fracture with routine healing Counseled: _ Patient New Medications: percocet Handouts presented: yes Assesment of patient/sarah beth myers's response to counseling: _ Patient found counseling beneficial [Electronically Signed on: 05/27/2020 11:17 EST] __ CeballosMichelle garza [Verified on: 05/27/2020 11:17 EST] __ Tucker Michelle [facility] Anesthesia Noteon 05-26-2020 Anesthesia Note Patient: RAMY MADRIGAL Age: 85 years Sex: FEMALE : 1935 Associated Diagnoses: None Author: Gonzalez Rich MD Postoperative Information Post Operative Note: Post Anesthesia Care Unit. Assessment Anesthetic outcome No anesthetic complications noted. Awake Pain controlled VSS Nausea controlled Respiratory non-labored. [Electronically Signed on: 05/28/2020 07:24 EST] __ Gonzalez Rich MD [Verified on: 05/28/2020 07:24 EST] __ Gonzalez Rich MD [facility] Anesthesia Note Patient: RAMY MADRIGAL Age: 85 years Sex: FEMALE : 1935 Associated Diagnoses: None Author: Gonzalez Rich MD Preoperative Information Anesthesia history: Patient history: No history of anesthesia complications. Family history: No family history of anesthesia complications. Review of Systems Respiratory: Negative, No shortness of breath, No cough. Cardiovascular: Negative, No chest pain. Gastrointestinal: No heartburn. All other systems are negative Health Status Allergies: Allergic Reactions (All) Mild Penicillin- Rash. Tape- Rash. Current medications: Home Medications (17) Active Allergy Relief 1 tab(s), PO, Daily amLODIPine 10 mg oral tablet 10 mg = 1 tab(s), PO, Daily aspirin 81 mg oral tablet 81 mg = 1 tab(s), PO, Daily hydroCHLOROthiazide 25 mg oral tablet 25 mg = 1 tab(s), PO, Daily levothyroxine 75 mcg (0.075 mg) oral tablet 75 mcg = 1 tab(s), PO, Daily liothyronine 5 mcg oral tablet 5 mcg = 1 tab(s), PO, Daily lovastatin 40 mg oral tablet 40 mg = 1 tab(s), PO, Daily Metoprolol Succinate ER 50 mg oral tablet, extended release 50 mg = 1 tab(s), PO, Daily Multivitamin 1 tab(s), PO, Daily [employer] Bounty Red Krill Oil 500 mg oral capsule 1 tab(s), PO, Daily omeprazole 20 mg oral delayed release capsule 20 mg = 1 cap(s), PO, Daily Poly Iron 150 Forte oral capsule potassium chloride 20 mEq oral tablet, extended release 20 mEq = 1 tab(s), PO, BID Vitamin B-12 100 mcg oral tablet 100 mcg = 1 tab(s), PO, Daily Vitamin B6 100 mg oral tablet 100 mg = 1 tab(s), PO, Daily Vitamin D3 1000 intl units oral capsule 1,000 International_Unit = 1 cap(s), PO, Every other day zolpidem 10 mg oral tablet 10 mg = 1 tab(s), PRN, PO, Once a day (at bedtime) Problem list (past medical history): All Problems Arthritis / SNOMED CT 4385928 / Confirmed Hypertension / SNOMED CT 4498323588 / Confirmed Hypothyroidism / SNOMED CT 41628489 / Confirmed Insomnia / SNOMED CT 898179501 / Confirmed Osteopenia / SNOMED CT 759887481 / Confirmed controlled GERD, SHANTI Histories Family History: Cancer Sister COPD (chronic obstructive pulmonary disease) Father Sister Diabetes mellitus Mother Sister Alzheimers dementia Mother Procedure history: Tonsillectomy (012441522). Appendectomy (467592612). Hysterectomy (521683590). Colonoscopy (906414630). Social History Electronic Cigarette/Vaping Assessment Electronic Cigarette Use: Never. Alcohol Assessment Use: Never. Tobacco Assessment Never (less than 100 in lifetime) Tobacco Use:. . Social & Psychosocial Habits Alcohol 05/05/2020 Alcohol Use: Never Tobacco 05/05/2020 Smoking tobacco use: Never (less than 100 in l Electronic Cigarette/Vaping 05/05/2020 Electronic Cigarette Use: Never . Physical Examination VS/Measurements Vital Signs (last 24 hrs) Last Charted Heart Rate Peripheral 62 bpm (MAY 26 11:56) Resp Rate 16 br/min (MAY 26 11:56) SBP 104 mmHg (MAY 26:56) DBP L 53mmHg (MAY 26:56) SpO2 99 % (MAY 26:56) Airway: Mallampati classification: II (soft palate, fauces, uvula visible). Mouth: Adequate opening, Dentures ( Partial plate ). Neck: No jugular venous distention, No full range of motion. Respiratory: Lungs are clear to auscultation. Cardiovascular: Normal rate, Regular rhythm, No murmur, No edema. Review / Management Laboratory Results Plan [employer]#( ASA) physical status classification: Class II. Anesthetic Preoperative Plan Anesthesia: Combined technique (Spinal, adductor canal block). Anesthetic plan, risks, benefits, and alternatives discussed with the patient and/or family. Risks discussed. Patient verbalized understanding. Consent was signed by the patient. [Electronically Signed on: 05/26/2020 13:06 EST] __ Gonzalez Rich MD [Verified on: 05/26/2020 13:06 EST] __ Gonzalez Rich MD [facility] MAGR Intraoperative Recordon 05-26-2020 MAGR Intraoperative Record MAGR Intra-Op Record Summary Primary Physician: CARMELITA YOUNG Finalized Date/Time: 05/26/20 15:38:26 Pt. Name: RAMY MADRIGAL/Sex: 1935 FEMALE Med Rec #: [id number] Physician: CARMELITA YOUNG Financial #: [id number] Pt. Type: O Room/Bed: 203/ Admit/Disch: 05/26/20 07:20:00 - Institution: Case Times MAGR Entry 1 Patient In Room Time 05/26/20 11:57:00 Out Room Time 05/26/20 14:14:00 Anesthesia Start Time 05/26/20 11:59:00 Stop Time 05/26/20 14:18:00 Surgery Start Time 05/26/20 12:38:00 Stop Time 05/26/20 14:11:00 Last Modified By: Fátima Orellana RN 05/26/20 14:26:26 Case Attendance MAGR Entry 1 Entry 2 Entry 3 Case Attendee CARMELITA YOUNG James D MD Southall, Wendy RN Role Performed Surgeon - Primary Anesthesiologist of Care Clinician Record Time In 05/26/20 11:57:00 05/26/20 11:57:00 05/26/20 11:57:00 Time Out 05/26/20 14:14:00 05/26/20 14:14:00 05/26/20 14:14:00 Procedure Arthroplasty Knee Arthroplasty Knee Arthroplasty Knee Total(Right) Total(Right) Total(Right) Last Modified By: Fátima Orellana RN, Wendy RN Southall, Wendy RN 05/26/20 14:39:50 05/26/20 14:39:50 05/26/20 14:39:50 Entry 4 Entry 5 Entry 6 Case Attendee Shira GRAHAM, Nicole Henry, Amparo Azul Role Performed Care Clinician Scrub Personnel Assistant Elementary Teacher Time In 05/26/20 11:57:00 05/26/20 11:57:00 05/26/20 11:57:00 Time Out 05/26/20 14:14:00 05/26/20 14:14:00 05/26/20 14:14:00 Procedure Arthroplasty Knee Arthroplasty Knee Arthroplasty Knee Total(Right) Total(Right) Total(Right) Last Modified By: Fátima Orellana RN, Wendy RN Southall, Wendy RN 05/26/20 14:39:50 05/26/20 14:39:50 05/26/20 14:39:50 Entry 7 Case Attendee Alex Guerin PA-C Role Performed Physican Buyer Agent Time In 05/26/20 11:57:00 Time Out 05/26/20 14:14:00 Procedure Arthroplasty Knee Total(Right) Last Modified By: Fátima Orellana RN 05/26/20 14:39:50 General Comments: Amos Ariana Surgical Procedures MAGR Pre-Care Text: A.20 Verifies operative procedure, surgical site, and laterality Im.150 Develops individualized plan of care Entry 1 Procedure Arthroplasty Knee Total Primary Procedure Yes Primary Surgeon CARMELITA YOUNG Right Surgeon Comment ORIF RIGHT KNEE PATELLA Start 05/26/20 12:43:00 Stop 05/26/20 14:11:00 Anesthesia Type Spinal Surgical Service Orthopedics Wound Class Clean Technique Details Closure Technique Primary Entire procedure No was performed via laparoscope or robotic assistance Last Modified By: Fátima Orellana RN 05/26/20 14:39:41 Post-Care Text: O.730 The patient's care is consistent with the individualized perioperative plan of care General Case Data MAGR Pre-Care Text: A.350.1 Classifies surgical wound Entry 1 Case Information OR MAGR OR 05 Case Level Level 5 Wound Class Clean Specialty Orthopedics ASA Class 2 Diagnosis Preop Diagnosis DJD RIGHT KNEE Postop Same As Preop Yes Postop Diagnosis DJD RIGHT KNEE Blunt or No Is the procedure No penetrating injury considered occured prior to Emergent/Urgent? the start of the procedure: Last Modified By: Fátima Orellana RN 05/26/20 12:51:25 Post-Care Text: O.760 Patient receives consistent and comparable care regardless of the setting Time Out MAGR Entry 1 Time out date/time 05/26/20 12:37:00 All team members Yes have introduced themselves by name and role Surgeon, Yes Surgeon reviews Yes anesthesia, nurse critical or confirm patient, unexpected steps, site, procedure operative duration, anticipated blood loss Anesthesia team Yes Nursing team Yes reviews any reviews sterility patient-specific (including concerns indicator results) and equipment issues/concerns Antibiotic Antibiotic Yes Administration Time 11:55 prophylaxis given within the last 60 minutes Is essential Yes imaging displayed? Last Modified By: Fátima Orellana RN 05/26/20 12:52:13 Patient Positioning MAGR Pre-Care Text: A.280 Identifies baseline musculoskeletal status Im.40 Positions the patient Im.80 Applies safety devices Entry 1 Procedure Arthroplasty Knee Body Position Supine Total(Right) Left Arm Position Extended on padded arm Right Arm Position Extended on padded arm board board Left Leg Position Extended Right Leg Position Held on field Feet Uncrossed? Yes Press Points Checked Yes Additional Right Positioning Device Arm Boards, Arm Strap, Information Pillow, Safety Strap Outcome Met (O.80) Yes Last Modified By: Fátima Orellana RN 05/26/20 12:53:12 Post-Care Text: E.290 Evaluates musculoskeletal status O.80 Patient is free from signs and symptoms of injury related to positioning Skin Prep MAGR Pre-Care Text: A.30 Verifies allergies Im.270 Performs skin preparation Im.270.1 Implements protective measures to prevent skin and tissue injury due to chemical sources Entry 1 (more content not included)... [facility] [facility] MAGR Intraoperative Record MAGR Intra-Op Record Summary Primary Physician: Finalized Date/Time: 05/26/20 12:51:17 Pt. Name: RAMY MADRIGAL /Sex: 1935 FEMALE Med Rec #: [id number] Physician: CARMELITA YOUNG Financial #: [id number] Pt. Type: D Room/Bed: Formerly named [facility] Admit/Disch: 05/26/20 07:20:00 - Institution: Case Times MAGR Entry 1 Patient In Room Time 05/26/20 11:25:00 Out Room Time 05/26/20 11:57:00 Anesthesia Start Time 05/26/20 11:44:00 Stop Time 05/26/20 11:54:00 Surgery Start Time 05/26/20 11:49:00 Stop Time 05/26/20 11:54:00 Last Modified By: Ramy Randall RN 05/26/20 12:45:38 Case Attendance MAGR Entry 1 Entry 2 Case Attendee Gonzalez Rich MD, Margaret RN Role Performed Anesthesiologist of Care Clinician Record Time In 05/26/20 11:25:00 05/26/20 11:25:00 Time Out 05/26/20 11:57:00 05/26/20 11:57:00 Procedure Adductor Canal Adductor Canal Block(Right) Block(Right) Last Modified By: Ramy Randall RN, Margaret RN 05/26/20 12:46:35 05/26/20 12:46:06 Surgical Procedures MAGR Pre-Care Text: A.20 Verifies operative procedure, surgical site, and laterality Im.150 Develops individualized plan of care Entry 1 Procedure Adductor Canal Block Primary Procedure Yes Primary Surgeon Gonzalez Rich MD Modifiers Right Surgeon Comment ADDUCTOR CANAL BLOCK Start 05/26/20 11:49:00 PRIOR TO RIGHT TOTAL KNEE Stop 05/26/20 11:54:00 Anesthesia Type Regional Block Surgical Service Anesthesia Wound Class Clean Technique Details Closure Technique N/A Entire procedure No was performed via laparoscope or robotic assistance Last Modified By: Ramy Randall RN 05/26/20 12:47:09 Post-Care Text: O.730 The patient's care is consistent with the individualized perioperative plan of care General Case Data MAGR Pre-Care Text: A.350.1 Classifies surgical wound Entry 1 Case Information OR MAGR Proc Room Case Level None Wound Class Clean Specialty Anesthesia ASA Class 2 Diagnosis Preop Diagnosis ADDUCTOR CANAL BLOCK Postop Same As Preop Yes PRIOR TO RIGHT TOTAL KNEE Postop Diagnosis ADDUCTOR CANAL BLOCK PRIOR TO RIGHT TOTAL KNEE Blunt or No Is the procedure No penetrating injury considered occured prior to Emergent/Urgent? the start of the procedure: Last Modified By: Ramy Randall RN 05/26/20 12:47:25 Post-Care Text: O.760 Patient receives consistent and comparable care regardless of the setting Time Out MAGR Entry 1 Time out date/time 05/26/20 11:42:00 All team members Yes have introduced themselves by name and role Surgeon, Yes Surgeon reviews Yes anesthesia, nurse critical or confirm patient, unexpected steps, site, procedure operative duration, anticipated blood loss Anesthesia team Yes Nursing team Yes reviews any reviews sterility patient-specific (including concerns indicator results) and equipment issues/concerns Antibiotic Antibiotic N/A prophylaxis given within the last 60 minutes Is essential Yes imaging displayed? Last Modified By: Ramy Randall RN 05/26/20 12:47:53 Patient Positioning MAGR Pre-Care Text: A.280 Identifies baseline musculoskeletal status Im.40 Positions the patient Im.80 Applies safety devices Entry 1 Procedure Adductor Canal Body Position Supine Block(Right) Left Arm Position Resting at Side Right Arm Position Resting at Side Left Leg Position Extended Right Leg Position Extended Feet Uncrossed? Yes Press Points Checked Yes Outcome Met (O.80) Yes Last Modified By: Ramy Randall RN 05/26/20 12:48:12 Post-Care Text: E.290 Evaluates musculoskeletal status O.80 Patient is free from signs and symptoms of injury related to positioning Skin Prep MAGR Pre-Care Text: A.30 Verifies allergies Im.270 Performs skin preparation Im.270.1 Implements protective measures to prevent skin and tissue injury due to chemical sources Entry 1 Skin Prep Syntegrity Prep Agents (Im.270) Chlorhexidine Gluconate Prep By Gonzalez Rich MD and Alcohol Prep Area (Im.270) Thigh Prep Area Details Right Skin Prep Agent Dry Yes Without Pooling Hair Removal Syntegrity Hair Removal Methods No hair removal performed Outcome Met (O.100) Yes Last Modified By: Ramy Randall RN 05/26/20 12:49:06 Post-Care Text: E.10 Evaluates for signs and symptoms of physical injury to skin and tissue O.100 Patient is free from signs and symptoms of chemical injury Departure from OR MAGR Entry 1 Present on Depart Oxygen Via Stretcher Post-op Destination [place] Skin DFO Condition Dry Description Condition Intact Description Report Given To Nicole Silva RN Airway Maintenance Patient Status Stable Oxygen in Use? Yes Airway Device Nasal cannula Flow Rate 2 L/min Last Modified By: Ramy Randall RN 05/26/20 12:50:07 Case Comments Finalized By: Ramy Randall RN Document Signatures Signed By: Ramy Randall RN 01 (more content not included)... [facility] PACU [facility] MAGR PACU Record Summary Primary Physician: CARMELITA YOUNG Finalized Date/Time: 05/26/20 15:17:23 Pt. Name: RAMY MADRIGAL/Sex: 1935 FEMALE Med Rec #: [id number] Physician: CARMELITA YOUNG Financial #: [id number] Pt. Type: D Room/Bed: [facility]/ Admit/Disch: 05/26/20 07:20:00 - Institution: PACU Case Times MAGR Entry 1 In PACU I 05/26/20 14:15:00 Discharge from PACU 05/26/20 15:05:00 I Last Modified By: Marycarmen Frost RN 05/26/20 15:17:21 Finalized By: Marycarmen Frost RN Document Signatures Signed By: Marycarmen Frost RN 05/26/20 15:17 [facility] MAGR Preoperative Recordon 0 05-26-2020 MAGR Preoperative Record MAGR Pre-Op Rec ord Summary Primary Physician: CARMELITA YOUNG Finalized Date/Time: 05/26/20 12:51:44 Pt. Name: RAMY MADRIGALVONNE /Sex: 1935 FEMALE Med Rec #: [id number] Physician: CARMELITA YOUNG Financial #: [id number] Pt. Type: D Room/Bed: Admit/Disch: 05/26/20 07:20:00 - Institution: Pre-Op Case Times MAGR Pre-Care Text: Patient will be optimally prepared for surgery. Patient is free from s/s of injury. Provide information to patient/family related to plan of care. Verify patient allergies. Confirm identity and verify consent before the operative or invasive procedure. Entry 1 Patient Arrival Time 05/26/20 07:25:00 Preop Departure 05/26/20 11:57:00 Last Modified By: Ramy Randall RN 05/26/20 12:51:38 Post-Care Text: Patient is prepared mentally and physically and is ready for surgery. The patient remains free from s/s of injury. Patient/family express understanding of plan of care and participate in decisions affecting his or her perioperrative plan of care. Allergies documented appropriately. Patient identifiers and consent correct. General Comments: Patient arrived ambulatory to [facility]. Patient denies SOB, diabetes, CP, or pacemaker/defibrill ator. Patient does have sleep apnea but hasnt used CPAP for 5 years and has clear sinus drainage. Finalized By: Ramy Randall RN Document Signatures Signed By: Ramy Randall RN 05/26/20 12:51 [facility] Nutrition Noteon 05-26-2020 Nutrition Note Pt admitted for scheduled Rt total knee surgery. Pt placed on a 3000kcal DM diet with usual post op vitamin/mineral and oral supplements. Pt does not appear to have DM; diet adjusted to Regular with inhouse available Ensure Compact BID. Pre op labs reviewed and wnl. No wt hx available; pre-admit wt used for nutrition assessment. Pt is at high nutrition risk r/t age at 67y and surgery, however, no immediate nutrition concerns identified at this time. Will monitor for changes in wts, intake and labs. [facility] Progress Note - Nurseon 05-08 Progress Note - Nurse Pt with sensation up bilateral legs, does not feel sensation to void, states she knows she voided related to the warmth she felt. Pt able to assist with repositioning without difficulty, able to put left heel on bed to assist with pulling herself up in bed. Pt with c/o mild discomfort in knee, not requiring medication. [Electronically Signed on: 05/26/2020 16:44 EST] __ Eunice Daigle RN [Verified on: 05/26/2020 16:44 EST] __ Eunice Daigle RN [facility] Progress Note - Nurse pt arrives in bed s/p recovery. Drowsy but appropriate. Pt's planned surgery was unable to be completed d/t patella issues noted. Pt expresses some sadness regarding this, emotional support provided. Coughs and deep breath well. Pt with knee immobiilizer on RLE, HINA wrap beneath, per report from PACU nurses, immobilizer is to remain in place unless pt feels it becomes to tight. Ice prn only if pt wishes it. Pt w/s/p spinal, bilateral sensation to knees, able to wiggle toes bilaterally and lift left leg off of bed. Difficult to assess mobility on RLE d/t immobilizer. Pt with c/o. [Electronically Signed on: 05/26/2020 15:31 EST] __ Oxana Eunice RN [Verified on: 05/26/2020 15:31 EST] __ OxanaGutierrezEunice RN [facility] XR Knee One or Two Views Rig hton 05-26-2020 XR Knee One or Two Views Right EXAM: XR Knee One or Two Views Right HISTORY: Right patellar fracture. COMPARISON: Right knee radiographs dated 05/26/2020. TECHNIQUE: 3 views of the right knee were obtained. FINDINGS: There are postsurgical changes of recent ORIF of a right patellar fracture with 2 pins and a cerclage wire. Multiple anterior surgical skin johnathon are noted. Foci of air are seen about and within the right knee joint, in keeping with recent postsurgical changes. There are mild degenerative changes of the lateral compartment of the right knee with mild to moderate degenerative changes of the medial and patellofemoral compartments. IMPRESSION: 1. Postsurgical changes of recent ORIF of a right patellar fracture. Final Dictated by: Clayton Nielsen Dictated DT/TM: 05/27/20 5:11 Signed (Electronic Signature): Clayton Nielsen 05/27/20 5:13 am Technologist: PEARL [facility] XR Knee One or Two Views Right EXAM: XR Knee One or Two Views Right HISTORY: PRE SURGERY TOTAL KNEE FILMS COMPARISON: None. TECHNIQUE: 3 views of the right knee were obtained. FINDINGS: Marginal tricompartmental spurring with spurring of the tibial spines. Severe tricompartmental joint space narrowing. IMPRESSION: Severe osteoarthritis. Final Dictated by: Carolina Gaspar MD Dictated DT/TM: 05/26/20 2:36 Signed (Electronic Signature): Carolina Gaspar MD 05/26/20 2:37 pm Technologist: Kaleigh KING [facility] Progress Note - Nurseon 05-08 Progress Note - Nurse Spoke with pt regarding arrival time change to 0715. Verbalized understanding. [Electronically Signed on: 05/25/2020 10:02 EST] __ Alon GRAHAM Ruby Cha [Verified on: 05/25/2020 10:02 EST] __ [facility] Nurse Spoke with pt regarding arrival time of 0830 and NPO status. Verbalized understanding. [Electronically Signed on: 05/25/2020 09:17 EST] __ Alon GRAHAM Ruby Cha [Verified on: 05/25/2020 09:17 EST] __ Alon GRAHAM Ruby Cha [facility] Coding Summaryon 05-06-2020 Coding Summary CODING DATE: 05/06/[address] [facility] STATUS: Home PAYOR: Medicare [facility] ADMIT DX: REASON FOR VISIT DX: I10 Essential (primary) hypertension M17.10 Unilateral primary osteoarthritis, unspecified knee FINAL DX: PRINCIPAL: I10 Essential (primary) hypertension SECONDARY: M17.10 Unilateral primary osteoarthritis, unspecified knee PYMT PROC APC STAT DESCRIPTION DOCTOR NAME DATE NOTE: The code number assigned matches the documented diagnosis and / or procedure in the patient's chart. However, the narrative phrase printed from the coding software may appear abbreviated, or result in slightly different terminology. Coded By: Ria Christina Date Saved: 05/06/2020 10:28 am [facility] Progress Note - Nurseon 04-09 Progress Note - Nurse PAT review done suki Lacy, no orders received. [Electronically Signed on: 05/06/2020 11:44 EST] __ Marycarmen Frost RN [Verified on: 05/06/2020 11:44 EST] __ Marycarmen Frost RN [facility] Provider Orderson 05-06-2020 Provider Orders [id number] 05#1.00OTGTIFF [facility] .Auto Diff 1on 05-05-2020 Auto [place] % 9 % Normal 05-19 [facility] Comment on above: Performed By: #### 1 [id number], [id number], [id number] ####[facility] (DEFAULT)[address] [place] [address] 92183 Baso Abs# 0.1 x10 Normal 0.0-0.2 [facility] Comment on above: Performed By: #### 1 [id number], [id number], [id number] ####[facility] (DEFAULT)[address] [place] [address] 28704 Basophils/100 WBC (Bld) 1.0 % Normal 0.2-2.0 [facility] Comment on above: Performed By: #### 1 [id number], [id number], [id number] ####[facility] (DEFAULT)[address] [place] [address] 21755 Eos Abs# 0.2 x10 Normal 0.0-0.4 [facility] Comment on above: Performed By: #### 1 [id number], [id number], [id number] ####[facility] (DEFAULT)[address] [place] [address] 30627 Eosinophils/100 WBC (Bld) 2.4 % Normal 0.9-4.0 [facility] Comment on above: Performed By: #### 1 [id number], [id number], [id number] ####[facility] (DEFAULT)[address] [place] [address] 95171 Lymph Abs# 3.0 x10 High 1.3-2.9 [facility] Comment on above: Performed By: #### 1 [id number], [id number], [id number] ####[facility] (DEFAULT)[address] [place] [address] Lymphocytes/100 WBC (Bld) 31 % Normal 14-48 [facility] Comment on above: Performed By: #### 1 [id number], [id number], [id number] ####[facility] (DEFAULT)[address] [place] [address] [place] Abs# 0.8 x10 Normal 0.0-0.8 [facility] Comment on above: Performed By: #### 1 [id number], [id number], [id number] ####[facility] (DEFAULT)[address] [place] [address] Neut Abs# 5.6 x10 Normal 1.5-9.2 [facility] Comment on above: Performed By: #### 1 [id number], [id number], [id number] ####[facility] (DEFAULT)[address] [place] [address] Neutrophils/100 WBC (Bld) 57 % Normal 44-88 [facility] Comment on above: Performed By: #### 1 [id number], [id number], [id number] ####[facility] (DEFAULT)[address] [place] [address] Standardon 05-05-2020 eGFR Non AA >60 Invalid Interpretation Code [facility] Comment on above: Performed By: #### 1 [id number], [id number], [id number] ####[facility] (DEFAULT)[address] [place] [address] eGFR AA >60 Invalid Interpretation Code [facility] Comment on above: Result Comment: Controller Instructor brodie Kidney disease could be indicated at eGFRs of less than 60 ml/min/1.73m2. Kidney Failure is indicated at less than 15 ml/min/1.73m2 Performed By: #### 1 [id number], [id number], [id number] ####[facility] (DEFAULT)[address] [place] [address] Anion gap [Moles/Vol] 16.0 mmol/L Normal 5.0-19.0 [facility] Comment on above: Performed By: #### 1 [id number], [id number], [id number] ####[facility] (DEFAULT)[address] [place] [address] 18913 Calcium [Mass/Vol] 10.0 mg/dL Normal 8.9-10.3 [facility] Comment on above: Performed By: #### 1 [id number], [id number], [id number] ####[facility] (DEFAULT)[address] [place] [address] 06120 Chloride [Moles/Vol] 97 mmol/L Low 101-111 [facility] Comment on above: Performed By: #### 1 [id number], [id number], [id number] ####[facility] (DEFAULT)[address] [place] [address] 84303 CO2 [Moles/Vol] 29 mmol/L Normal 21-32 [facility] Comment on above: Performed By: #### 1 [id number], [id number], [id number] ####[facility] (DEFAULT)[address] [place] [address] 49003 Creatinine [Mass/Vol] 0.81 mg/dL Normal 0.60-1.30 [facility] Comment on above: Performed By: #### 1 [id number], [id number], [id number] ####[facility] (DEFAULT)[address] [place] [address] 21887 Glucose [Mass/Vol] 113.0 mg/dL Normal 74.0-118.0 [facility] Comment on above: Performed By: #### 1 [id number], [id number], [id number] ####[facility] (DEFAULT)[address] [place] [address] 06227 Osmolality 277 mOsm/L Invalid Interpretation Code [facility] Comment on above: Performed By: #### 1 [id number], [id number], [id number] ####[facility] (DEFAULT)[address] [place] [address] 48604 Potassium [Moles/Vol] 4.0 mmol/L Normal 3.6-5.1 [facility] Comment on above: Performed By: #### 1 [id number], 7810580, 35933231 ####[facility] (DEFAULT)[address] [place] [address] 31053 Sodium [Moles/Vol] 138.0 mmol/L Normal 136.0-144 . 0 [facility] Comment on above: Performed By: #### 1 [id number], 9365841, [id number] ####[facility] (DEFAULT)[address] [place] [address] 12501 Urea nitrogen [Mass/Vol] 15 mg/dL Normal 8-26 [facility] Comment on above: Performed By: #### 1 [id number], 8672193, 80592217 ####[facility] (DEFAULT)[address] [place] [address] Urea nitrogen/Creatinine [Mass ratio] 19.0 mg/mg High 4.6-16.2 [facility] Comment on above: Performed By: #### 1 [id number], 8897617, 57996531 ####[facility] (DEFAULT)[address] [place] [address] CBC w/ Auto Diffon - 0 Erythrocyte distribution width (RBC) [Ratio] 12.9 % Normal 11.5-15.0 [facility] Comment on above: Performed By: #### 1 [id number], 0809851, [id number] ####[facility] (DEFAULT)[address] [place] [address] 77524 Hematocrit (Bld) [Volume fraction] 45.8 % High 33.7-40.4 [facility] Comment on above: Performed By: #### 1 [id number], 4313780, 63907474 ####[facility] (DEFAULT)[address] [place] [address] 58770 Hemoglobin (Bld) [Mass/Vol] 15.2 g/dL Normal 11.3-15. 9 [facility] Comment on above: Performed By: #### 1 [id number], 3115666, 13036581 ####[facility] (DEFAULT)[address] [place] [address] Instr WBC 9.7 x10 Invalid Interpretation Code [facility] Comment on above: Performed By: #### 1 [id number], [id number], [id number] ####[facility] (DEFAULT)[address] [place] [address] Man Diff? Auto Normal [facility] Comment on above: Performed By: #### 1 [id number], 9343377, [id number] ####[facility] (DEFAULT)[address] [place] [address] MCH (RBC) [Entitic mass] 28 pg Normal 24-34 [facility] Comment on above: Performed By: #### 1 [id number], 5968636, 65603070 ####[facility] (DEFAULT)[address] [place] [address] MCHC (RBC) [Mass/Vol] 33 g/dL Normal 26-37 [facility] Comment on above: Performed By: #### 1 [id number], 7901155, 95504680 ####[facility] (DEFAULT)[address] [place] [address] MCV (RBC) [Entitic vol] 85 fL Normal 81-100 [facility] Comment on above: Performed By: #### 1 [id number], [id number], [id number] ####[facility] (DEFAULT)[address] [place] [address] Platelet 313 x10 Normal 138-427 [facility] Comment on above: Performed By: #### 1 [id number], 4510602, 95372794 ####[facility] (DEFAULT)[address] [place] [address] Platelet mean volume (Bld) [Entitic vol] 11.6 fL High 6.3-10.2 [facility] Comment on above: Performed By: #### 1 [id number], [id number], [id number] ####[facility] (DEFAULT)[address] [place] [address] RBC 5.36 x10 High 3.70-5.30 [facility] Comment on above: Performed By: #### 1 [id number], 3727095, 56360670 ####[facility] (DEFAULT)[address] [place] [address] 99469 WBC 9.7 x10 Normal 3.5-10.5 [facility] Comment on above: Performed By: #### 1 [id number], 6280975, [id number] ####[facility] (DEFAULT)[address] [place] [address] 95244 UA Missg9mv 05-05-2020 UA Bacteria None Normal [facility] Comment on above: Order Comment: Urina lysis Microscopic order added on by [employer] Expert Rules system. Performed By: #### 1 [id number], [id number] #### [facility] (DEFAULT) [address] [place] [address] 72871 UA RBC 0-2 Normal [facility] Comment on above: Order Comment: Urina lysis Microscopic order added on by [employer] Rules system. Performed By: #### 1 [id number], [id number] #### [facility] (DEFAULT) [address] [place] [address] 40335 UA WBC 0-2 Normal [facility] Comment on above: Order Comment: Urina lysis Microscopic order added on by [employer] Rules system. Performed By: #### 1 [id number], [id number] #### [facility] (DEFAULT) [address] [place] [address] 64169 UA w Culture if Ind Standard on 05-05-2020 Breakpoint UA [facility] Comment on above: Performed By: #### 1 [id number], [id number] #### [facility] (DEFAULT) [address] [place] [address] 62380 Color (U) Yellow Normal [facility] Comment on above: Performed By: #### 1 [id number], [id number] #### [facility] (DEFAULT) [address] [place] [address] 51811 Culture? Not Indicated Invalid Interpretation Code [facility] Comment on above: Performed By: #### 1 [id number], [id number] #### [facility] (DEFAULT) [address] [place] [address] 01514 Glucose (U) [Mass/Vol] Negative Normal [facility] Comment on above: Performed By: #### 1 [id number], [id number] #### [facility] (DEFAULT) [address] [place] [address] 09705 Ketones Ql (U) Negative Normal [facility] Comment on above: Performed By: #### 1 [id number], [id number] #### [facility] (DEFAULT) [address] [place] [address] 30682 Micro? Indicated Normal [facility] Comment on above: Performed By: #### 1 [id number], [id number] #### [facility] (DEFAULT) [address] [place] [address] 52897 UA Bilirubin Negative Normal [facility] Comment on above: Performed By: #### 1 [id number], [id number] #### [facility] (DEFAULT) [address] [place] [address] 17479 UA Blood TRACE Abnormal NEGATIVE [facility] Comment on above: Performed By: #### 1 [id number], [id number] #### [facility] (DEFAULT) [address] [place] [address] 59135 UA Clarity CLEAR Normal CLEAR [facility] Comment on above: Performed By: #### 1 [id number], [id number] #### [facility] (DEFAULT) [address] [place] [address] 87006 UA Leuk Est Negative Normal NEGATIVE [facility] Comment on above: Performed By: #### 1 [id number], [id number] #### [facility] (DEFAULT) [address] [place] [address] 77846 UA Nitrite Negative Normal NEGATIVE [facility] Comment on above: Performed By: #### 1 [id number], [id number] #### [facility] (DEFAULT) [address] [place] [address] 04913 UA pH 6.0 Normal 5-8 [facility] Comment on above: Performed By: #### 1 [id number], [id number] #### [facility] (DEFAULT) [address] [place] [address] 92476 UA Protein Negative Normal NEGATIVE [facility] Comment on above: Performed By: #### 1 [id number], [id number] #### [facility] (DEFAULT) [address] [place] [address] 84173 UA Spec Grav <=1.005 Normal 1.001-1.03 5 [facility] Comment on above: Performed By: #### 1 [id number], [id number] #### [facility] (DEFAULT) [address] [place] [address] 14114 UA Urobilinogen 0.2 mg/dL Normal 0.2-1.0 [facility] Comment on above: Performed By: #### 1 [id number], [id number] #### [facility] (DEFAULT) [address] [place] [address] 58824 Urine Source Clean Catch Normal [facility] Comment on above: Performed By: #### 1 [id number], [id number] #### [facility] (DEFAULT) [address] [place] [address] 36748 Vital Signs Date Time Vital Sign Value Performing Clinician Facility 03-05-2024 14:00-0400 Body height 149.9 cm [employer] Work Phone: [facility] [employer] 03-05-2024 14:00-0400 Body mass index (BMI) [Ratio] 25.91 kg/m2 [employer] Work Phone: [facility] [employer] 03-05-2024 14:00-0400 Body temperature 97.9 [degF] [employer] Work Phone: [facility] [employer] 03-05-2024 14:00-0400 Body weight 58.2 kg [employer] Work Phone: [facility] [employer] 03-05-2024 14:00-0400 Diastolic blood pressure 62 mm[Hg] [employer] [facility]: [email or web address] 03-05-2024 14:00-0400 Heart rate 78 /min [employer] Work Phone: [email or web address] 03-05-2024 14:00-0400 SaO2% (BldA) [Mass fraction] 96 % Seven Furlong DO Work Phone: [facility] [employer] [facility] 03-05-2024 14:00-0400 Systolic blood pressure 112 mm[Hg] Seven Furlong DO Work Phone: [facility] [employer] [facility] 02-07-2024 09:09-0400 Body height 149.9 cm Seven Vitolong DO Work Phone: [facility] [employer] [facility] 02-07-2024 09:09-0400 Body mass index (BMI) [Ratio] 25.65 kg/m2 Seven Furlong DO Work Phone: [facility] [employer] [facility] 02-07-2024 09:09-0400 Body temperature 97.39 [degF] Seven Padronlong DO Work Phone: [facility] [employer] [facility] 02-07-2024 09:09-0400 Body weight 57.61 kg Seven Macdonaldng DO Work Phone: [facility] [employer] [facility] 02-07-2024 09:09-0400 Diastolic blood pressure 62 mm[Hg] Seven Padronlong DO Work Phone: [facility] [employer] [facility] 02-07-2024 09:09-0400 Heart rate 76 /min Seven Padronlong DO Work Phone: [facility] [employer] [facility] 02-07-2024 09:09-0400 SaO2% (BldA) [Mass fraction] 96 % Seven Vitolong DO Work Phone: [facility] [employer] [facility] 02-07-2024 09:09-0400 Systolic blood pressure 118 mm[Hg] Seven Padronlong DO Work Phone: [facility] [employer] [facility] 08-08-2023 14:26-0400 Body height 149.9 cm Seven Torresng DO Work Phone: [facility] [employer] [facility] 08-08-2023 14:26-0400 Body mass index (BMI) [Ratio] 25.39 kg/m2 Seven Vitolong DO Work Phone: [facility] 08-08-2023 14:26-0400 Body temperature 97.81 [degF] Seven Furlong DO Work Phone: [facility] 08-08-2023 14:26-0400 Body weight 57.02 kg Seven Furlong DO Work Phone: [facility] 08-08-2023 14:26-0400 Diastolic blood pressure 60 mm[Hg] Seven Furlong DO Work Phone: [facility] 08-08-2023 14:26-0400 Heart rate 71 /min Seven Furlong DO Work Phone: [facility] 08-08-2023 14:26-0400 Respiratory rate 18 /min Seven Furlong DO Work Phone: [facility] 08-08-2023 14:26-0400 SaO2% (BldA) [Mass fraction] 94 % Seven Furlong DO Work Phone: [facility] 08-08-2023 14:26-0400 Systolic blood pressure 120 mm[Hg] Seven Furlong DO Work Phone: [facility] 07-25-2023 16:03-0400 Body height 149.9 cm Seven Furlong DO Work Phone: [facility] 07-25-2023 16:03-0400 Body mass index (BMI) [Ratio] 25.25 kg/m2 Seven Furlong DO Work Phone: [facility] 07-25-2023 16:03-0400 Body weight 56.7 kg Seven Furlong DO Work Phone: [facility] 07-25-2023 16:03-0400 Diastolic blood pressure 58 mm[Hg] Seven Furlong DO Work Phone: [facility] 07-25-2023 16:03-0400 Systolic blood pressure 124 mm[Hg] Seven Furlong DO Work Phone: [facility] [employer] [facility] 07-17-2023 14:52-0400 Body height 149.9 cm Nickie Coombs APRN-WAITER Work Phone: [facility] [employer] [facility] 07-17-2023 14:52-0400 Body mass index (BMI) [Ratio] 25.41 kg/m2 Nickie Coombs APRN-WAITER Work Phone: [facility] [employer] [facility] 07-17-2023 14:52-0400 Body temperature 97.5 [degF] Nickie Coombs APRN-WAITER Work Phone: [facility] [employer] [facility] 07-17-2023 14:52-0400 Body weight 57.06 kg Nickie Coombs APRN-WAITER Work Phone: [facility] [employer] [facility] 07-17-2023 14:52-0400 Diastolic blood pressure 50 mm[Hg] Nickie Coombs APRN-WAITER Work Phone: [facility] [employer] [facility] 07-17-2023 14:52-0400 Heart rate 64 /min Nickie Coombs APRN-WAITER Work Phone: [facility] [employer] [facility] 07-17-2023 14:52-0400 Respiratory rate 20 /min Nickie Coombs APRN-WAITER Work Phone: [facility] [employer] [facility] 07-17-2023 14:52-0400 SaO2% (BldA) [Mass fraction] 96 % Nickie Coombs APRN-WAITER Work Phone: [facility] [employer] [facility] 07-17-2023 14:52-0400 Systolic blood pressure 116 mm[Hg] Nickie Coombs APRN-WAITER Work Phone: [facility] Encounters Encounter Date Encounter Type Care Provider Facility Start: 03-05-2024 End: 03-05-2024 [facility] Start: 03-05-2024 End: 03-05-2024 Office outpatient visit 15 minutes Seven Palmer DO Work Phone: [facility] Comment on above: Dizziness (Primary D x) Start: 03-04-2024 End: 03-04-2024 Telephone encounter Soraida Lemon CMA [facility] Start: 02-08-2024 End: 02-08-2024 Orders Only Seven [facility] DO Work Phone: [facility] Start: 02-07-2024 End: 02-07-2024 ambulatory 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 ([facility]) (Primary Dx); Acquired hypothyroidism; Prediabetes; Upper respiratory tract infection, unspecified type; Persistent insomnia; Gastroesophageal reflux disease, unspecified whether esophagitis present; Hypercholesterolemia; Overweight Start: 02-07-2024 End: 02-07-2024 ambulatory [facility] Start: 11-07-2023 End: 11-07-2023 ambulatory [facility] Start: 09-27-2023 End: 09-27-2023 ambulatory ERNESTINA THAO Not Available Start: 09-26-2023 End: 09-26-2023 ambulatory [facility] Start: 08-08-2023 End: 08-08-2023 ambulatory 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 ([facility]) (Primary Dx); Prediabetes; Persistent insomnia; Overweight; Other insomnia; Medication monitoring encounter; Acquired hypothyroidism Start: 08-08-2023 End: 08-08-2023 ambulatory [facility] Start: 07-26-2023 Orders Only Seven carmichael DO Work Phone: [facility] Start: 07-26-2023 Refill Seven carmichael DO Work Phone: [facility] Comment on above: Acquired hypothyroid ism Start: 07-25-2023 End: 07-25-2023 Patient encounter procedure Seven Palmer DO Work Phone: [facility] Comment on above: Medicare annual well ness visit, subsequent (Primary Dx); Screening for depression Start: 07-25-2023 End: 07-25-2023 Refill Seven Palmer DO Work Phone: [facility] Comment on above: Acquired hypothyroid ism Start: 07-19-2023 Refill Fatmata Gee COLOR TECHNICIAN [facility] Comment on above: Other insomnia (Prim santa Dx) Start: 07-18-2023 Orders Only Nickie Coombs PRODUCTION GENERALIST-WAITER Work Phone: [facility] Start: 07-17-2023 End: 07-17-2023 ambulatory NICKIE BHAKTA [facility] Start: 07-17-2023 End: 07-17-2023 Office outpatient visit 15 minutes Nickie Coombs PRODUCTION GENERALIST-WAITER Work Phone: [facility] Comment on above: Viral upper respirat ory tract infection (Primary Dx); 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 ([facility]); Acquired hypothyroidism Start: 07-17-2023 End: 07-17-2023 ambulatory [facility] Start: 05-21-2023 Orders Only Seven carmichael DO Work Phone: [facility] Comment on above: Persistent insomnia (Primary Dx) Start: 05-18-2023 End: 05-18-2023 ambulatory ABUNDIO RODRIGUEZ Not Available Start: 05-10-2023 Refill Fatmata Gee COLOR TECHNICIAN [facility] Comment on above: Acquired hypothyroid ism; Persistent insomnia; Primary hypertension Start: 05-03-2023 Refill Roxy amado APRN-SENIOR CONTROLS TECHNICIAN Work Phone: [facility] Start: 04-26-2023 End: 04-26-2023 ambulatory [facility] Start: 04-06-2023 End: 04-06-2023 ambulatory ABUNDIO Cha POCOS Not Available Start: 03-27-2023 End: 03-27-2023 [facility] Start[facility] 03-23-2023 End: 03-23-2023 ambulatory ABUNDIO Cha POCOS Not Available Start: 03-03-2023 End: 03-03-2023 ambulatory ANGELIA [facility] Start: 10-11-2022 End: 10-11-2022 ambulatory LEAH [facility] Start: 09-08-2022 End: 09-09-2022 ambulatory LEAH SAGE Facility:[facility] Start: 01-11-2022 End: 01-12-[address] SEVEN PALMER Facility:[facility] Start: 12-15-2021 End: 12-16-2021 ambulatory SINDHU MASROOR Facility:[facility] Start: 11-29-2021 End: 12-01-2021 Evaluation and management of inpatient Sindhu Masroor Facility:[facility] Start: 11-26-2021 End: 11-27-2021 ambulatory Sindhu Masroor Facility:[facility] Start: 11-19-2021 End: 11-20-2021 ambulatory SINDHU MASROOR Facility:[facility] Start: 10-28-2021 ambulatory LEAH SAGE Facility: [facility] Start: 10-18-2021 ambulatory LEAH SAGE Facility: [facility] Start: 10-14-2021 End: 10-23-2021 ambulatory LEAH SAGE Facility:[facility] Start: 09-21-2021 End: 09-22-2021 ambulatory LEAH SAGE Facility:[facility] Start: 08-03-2021 End: 08-06-2021 Evaluation and management of inpatient GIO JAY Facility:[facility] Procedures Date Procedure Procedure Detail Performing Clinician Start: 03-05-2024 Adult depression screening assessment Seven Palmer DO Work Phone: Start: 02-07-2024 POCT INFLUENZA A/INFLUENZA B/SARS-COV-2 VERITOR Seven Padronlong DO Work Phone: Start: 02-07-2024 Adult depression screening assessment Seven Palmer DO Work Phone: Start: 08-08-2023 Adult depression screening assessment Seven Macdonaldng DO Work Phone: Start: 07-25-2023 Adult depression screening assessment Seven Palmer DO Work Phone: Start: 07-17-2023 Adult depression screening assessment Nickie Coombs PRODUCTION GENERALIST-WAITER Work Phone: Start: 04-26-2023 Adult depression screening assessment Roxy Kamara PRODUCTION GENERALIST-SENIOR CONTROLS TECHNICIAN Work Phone: Start: 11-26-2021 Antibody screen LEAH ESPAÑA Comment on above: Performed By: #### [id number] #### [address] Plan of Treatment Date Care Activity Detail Author Start: 03-05-2025 Adult BMI Screening Adult BMI Screen ing [facility] [employer] [facility] Start: 03-05-2025 Depression Screening Depression Scre ening [facility] Start: 03-05-2025 Fall Risk Screening Fall Risk Screen ing [facility] Start: 03-05-2025 Tobacco Screening Tobacco Screening [facility] Start: 02-06-2025 Adult BMI Screening Adult BMI Screen ing [facility] [employer] [facility] Start: 02-06-2025 Depression Screening Depression Scre ening [facility] Start: 02-06-2025 Fall Risk Screening Fall Risk Screen ing [facility] [employer] [facility] Start: 02-06-2025 Tobacco Screening Tobacco Screening [facility] Start: 08-07-2024 Adult BMI Screening Adult BMI Screen ing [facility] [employer] [facility] Start: 08-07-2024 Depression Screening Depression Scre ening [facility] Start: 08-07-2024 Fall Risk Screening Fall Risk Screen ing [facility] Start: 08-07-2024 Tobacco Screening Tobacco Screening [facility] Start: 08-05-2024 DTaP,Tdap and Td Vaccines (2 - Td or Tdap) DTaP,Tdap and Td Vaccines (2 - Td or Tdap) [facility] Start: 07-25-2024 End: 07-25-2024 Patient encounter procedure 07/25/2024 3:00 PM EDT Office Visit [facility] Internal Medicine - Family Medicine [address] [place] [address] [facility] Internal Medicine - Family Medicine Start: 07-24-2024 Adult BMI Screening Adult BMI Screen ing [facility] Start: 07-24-2024 Depression Screening Depression Scre ening [facility] Start: 07-24-2024 Fall Risk Screening Fall Risk Screen ing [facility] Start: 07-24-2024 Medicare Annual Wellness Visit Medicare Annual Wellness Visit [facility] Start: 07-24-2024 Tobacco Screening Tobacco Screening [facility] Start: 07-16-2024 Adult BMI Screening Adult BMI Screen ing [facility] Start: 07-16-2024 Depression Screening Depression Scre ening [facility] Start: 07-16-2024 Fall Risk Screening Fall Risk Screen ing [facility] Start: 07-16-2024 Tobacco Screening Tobacco Screening [facility] Start: 05-10-2024 End: 05-10-2024 Patient encounter procedure 05/10/2024 10:00 AM EST Office Visit [facility] Internal Medicine - Family Medicine [address] [place] [address] Seven Palmer, [address] [place] [address] [facility] Internal Medicine - Family Medicine Start: 04-26-2024 Adult BMI Screening Adult BMI Screen ing [facility] Start: 04-26-2024 Depression Screening Depression Scre ening [facility] Start: 04-26-2024 Fall Risk Screening Fall Risk Screen ing [facility] Start: 04-26-2024 Tobacco Screening Tobacco Screening [facility] Start: 03-20-2024 COVID-19 Vaccine ( season) COVID-19 Vaccine ( season) [facility] Start: 03-20-2024 COVID-19 Vaccine () COVID-19 Vaccine () [facility] Start: 03-05-2024 End: 03-05-2025 US Carotid arteries - bilateral Vas carotid duplex bilateral Vascular Ultrasound Routine Dizziness Expected: 03/05/2024, Expires: 03/05/2025 [facility] Work Phone: Comment on above: Expected: 03/05/2024 , Expires: 03/05/2025 Start: 01-07-2024 Influenza vaccination Influenza Vaccine [facility] Start: 11-07-2023 End: 11-07-2023 Patient encounter procedure 11/07/2023 2:15 PM EDT Office Visit [facility] - Family Medicine [address] [place] [address] Seven Palmer DO [address], [place] [address] [facility] Internal Medicine Family [facility] Start: 08-08-2023 End: 08-08-2023 Patient encounter procedure 08/08/2023 3:30 PM EDT [facility] [address] [place] [address] Seven Palmer DO [address] [place] [address] [facility] Internal Medicine - Family Medicine Start: 07-25-2023 End: 07-25-2023 Patient encounter procedure 07/25/2023 4:00 PM EDT Office Visit [facility] [address] [place] [address] [facility] Start: 07-22-2023 Medicare Annual Wellness Visit Medicare Annual Wellness Visit [facility] [employer] [facility] Start: 06-29-2023 COVID-19 Vaccine ( season) COVID-19 Vaccine () [facility] Start: 01-06-2023 COVID-19 Vaccine () COVID-19 Vaccine () [facility] [employer] [facility] Start: 1953 Adult BMI Follow Up Plan Adult BMI Follow Up Plan [email or web address] End: 02-06-2025 Basic metabolic 2000 panel - Serum or Plasma Basic Metabolic Panel Lab Routine 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 ([facility]) 1 Occurrences starting 02/07/2024 until 02/06/2025 [facility] above: 1 Occurrences starti ng 02/07/2024 until 02/06/2025 End: 02-06-2025 CBC panel - Blood by Automated count CBC Lab Routine 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 ([facility]) 1 Occurrences starting 02/07/2024 until 02/06/2025 [employer] Comment on above: 1 Occurrences starti ng 02/07/2024 until 02/06/2025 End: 02-06-2025 Hemoglobin A1c/Hemoglobin.total in Blood Hemoglobin A1c Lab Routine Prediabetes 1 Occurrences starting 02/07/2024 until 02/06/2025 [employer] Comment on above: 1 Occurrences starti ng 02/07/2024 until 02/06/2025 End: 02-06-2025 Lipid panel Lipid panel Lab Routine Hypercholesterolemia 1 Occurrences starting 02/07/2024 until 02/06/2025 [employer] Comment on above: 1 Occurrences starti ng 02/07/2024 until 02/06/2025 End: 02-06-2025 Magnesium [Mass/volume] in Serum or Plasma Magnesium Lab Routine 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 ([facility]) 1 Occurrences starting 02/07/2024 until 02/06/2025 [employer] Comment on above: 1 Occurrences starti ng 02/07/2024 until 02/06/2025 End: 02-06-2025 Parathyroid Hormone, intact Parathyroid Hormone, intact Lab Routine 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 ([facility]) 1 Occurrences starting 02/07/2024 until 02/06/2025 [facility] Comment on above: 1 Occurrences starti ng 02/07/2024 until 02/06/2025 End: 02-06-2025 Phosphate [Mass/volume] in Serum or Plasma Phosphorus Lab Routine 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 ([facility]) 1 Occurrences starting 02/07/2024 until 02/06/2025 [facility] Comment on above: 1 Occurrences starti ng 02/07/2024 until 02/06/2025 End: 02-06-2025 Thyroid profile includes TSH FT4 Thyroid profile includes TSH FT4 Lab Routine Acquired hypothyroidism 1 Occurrences starting 02/07/2024 until 02/06/2025 [employer] Work Phone: Comment on above: 1 Occurrences starti ng 02/07/2024 until 02/06/2025 End: 02-06-2025 Urate [Mass/volume] in Serum or Plasma Uric acid Lab Routine 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 ([facility]) 1 Occurrences starting 02/07/2024 until 02/06/2025 [facility] Comment on above: 1 Occurrences starti ng 02/07/2024 until 02/06/2025 End: 02-06-2025 Vitamin D 25 hydroxy Vitamin D 25 hydroxy Lab Routine 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 ([facility]) 1 Occurrences starting 02/07/2024 until 02/06/2025 [facility] Comment on above: 1 Occurrences starti ng 02/07/2024 until 02/06/2025 Immunizations Immunization Date Immunization Notes Care Provider [facility] 02-20-2023 influenza, high dose seasonal, preservative-free Roxy Kamara PRODUCTION GENERALIST-SENIOR CONTROLS TECHNICIAN Work Phone: [email or web address] 02-20-2023 influenza virus vacc ine, unspecified formulation Seven Palmer DO Work Phone: [email or web address] 02-04-2022 Influenza, High-dose , Quadrivalent Roxy Kamara PRODUCTION GENERALIST-SENIOR CONTROLS TECHNICIAN Work Phone: [facility] 02-04-2022 influenza, live, intranasal, quadrivalent Roxy Kamara PRODUCTION GENERALIST-SENIOR CONTROLS TECHNICIAN Work Phone: [facility] 05-26-2021 zoster vaccine recombinant Roxy Kamara PRODUCTION GENERALIST-SENIOR CONTROLS TECHNICIAN Work Phone: [facility] 01-12-2021 Influenza, High-dose , Quadrivalent Roxy Kamara PRODUCTION GENERALIST-SENIOR CONTROLS TECHNICIAN Work Phone: [facility] 12-28-2020 zoster vaccine recombinant Roxy Kamara PRODUCTION GENERALIST-SENIOR CONTROLS TECHNICIAN Work Phone: [facility] 12-18-2020 zoster vaccine recombinant Roxy Kamara PRODUCTION GENERALIST-SENIOR CONTROLS TECHNICIAN Work Phone: [facility] 07-01-2020 COVID-19, mRNA, LNP- S, PF, 100mcg/0.5mL Dose Roxy Kamara PRODUCTION GENERALIST-SENIOR CONTROLS TECHNICIAN Work Phone: [facility] 06-03-2020 COVID-19, mRNA, LNP- S, PF, 100mcg/0.5mL Dose Roxy Kamara PRODUCTION GENERALIST-SENIOR CONTROLS TECHNICIAN Work Phone: [facility] 01-10-2020 Influenza, High-dose , Quadrivalent Roxy Kamara PRODUCTION GENERALIST-SENIOR CONTROLS TECHNICIAN Work Phone: [facility] 01-10-2020 influenza, injectabl e, quadrivalent, contains preservative Roxy Kamara PRODUCTION GENERALIST-SENIOR CONTROLS TECHNICIAN Work Phone: [facility] 01-27-2019 influenza, high dose seasonal, preservative-free Roxy Kamara PRODUCTION GENERALIST-SENIOR CONTROLS TECHNICIAN Work Phone: [facility] 01-03-2018 influenza, seasonal, injectable Roxy Kamara PRODUCTION GENERALIST-SENIOR CONTROLS TECHNICIAN Work Phone: [facility] 12-28-2016 Seasonal trivalent influenza vaccine, adjuvanted, preservative free Roxy Kamara PRODUCTION GENERALIST-SENIOR CONTROLS TECHNICIAN Work Phone: [facility] 01-29-2016 influenza, high dose seasonal, preservative-free Roxy Asad PRODUCTION GENERALIST-SENIOR CONTROLS TECHNICIAN Work Phone: [facility] 01-29-2016 zoster vaccine, live Roxyanitra Kamara PRODUCTION GENERALIST-SENIOR CONTROLS TECHNICIAN Work Phone: [facility] 01-30-2015 influenza, high dose seasonal, preservative-free Roxy Asad PRODUCTION GENERALIST-SENIOR CONTROLS TECHNICIAN Work Phone: [facility] 08-05-2014 tetanus toxoid, redu migdalia diphtheria toxoid, and acellular pertussis vaccine, adsorbed Roxy Asad PRODUCTION GENERALIST-SENIOR CONTROLS TECHNICIAN Work Phone: [facility] 03-25-2014 pneumococcal conjuga te vaccine, 13 valent Roxy Asad PRODUCTION GENERALIST-[facility] Work Phone: [facility] 03-06-2008 pneumococcal polysaccharide vaccine, 23 valent Roxy Kamara PRODUCTION GENERALIST-[facility] Work Phone: [facility] Payers Date Payer Category Payer Medicare AETNA MEDICARE A ETNA MEDICARE PLAN (HMO) [id number] 2023-Present [phone] [address] [place] [address] [id number] 2023 Medicare O AETNA MEDICARE [id number] 2023 Medicare [id number] 2010 Self-pay [id number] Self-pay 1959 Unknown [id number] 1937 Unknown [id number] 2.16.840.1.077231.3.579.2.647 1937 Unknown [id number] 2.16.840.1.738765.3.579.2.647 1937 Unknown [id number] 2.16.840.1.925299.3.579.2.647 1937 Unknown [id number] 2.16.840.1.430205.3.579.2.647 1937 Unknown [id number] 2.16.840.1.627494.3.579.2.593 1937 Unknown [id number] 2.16.840.1.453865.3.579.2.593 1937 Unknown [id number] 2.16.840.1.367695.3.579.2.593 1937 Unknown [id number] 2.16.840.1.751744.3.579.2.593 1937 Unknown [id number] 2.16.840.1.620156.3.579.2.593 1937 Unknown [id number] 2.16.840.1.089274.3.579.2.593 1937 Unknown [id number] 2.16.840.1.850918.3.579.2.593 1937 Unknown [id number] 2.16.840.1.742724.3.579.2.1259 1937 Unknown [id number] 2.16.840.1.034023.3.579.2.1259 1937 Unknown [id number] 2.16.840.1.419905.3.579.2.1259 1937 Unknown [id number] 2.16.840.1.992844.3.579.2.1259 1937 Unknown [id number] 2.16.840.1.071021.3.579.2.1259 1937 Unknown [id number] 2.16.840.1.372961.3.579.2.1286 1937 Unknown [id number] 2.16.840.1.097531.3.579.2.128 1937 Unknown [id number] 2.16.840.1.478121.3.579.2.1285 1937 Unknown [id number] 2.16.840.1.249136.3.579.2.1285 1937 Unknown [id number] 2.16.840.1.393186.3.579.2.1285 1937 Unknown [id number] 2.16.840.1.484088.3.579.2.128 1937 Unknown [id number] 2.16.840.1.345980.3.579.2.1285 1937 Unknown [id number] 2.16.840.1.539072.3.579.2.1285 1937 Unknown [id number] 2.16.840.1.753352.3.579.2.128 1937 Unknown [id number] 2.16.840.1.685248.3.579.2.1286 Social History Date Type Detail Facility Start: 01-16-2022 End: 02-07-2024 Tobacco smoking status KSIS Ex-smoker [facility] History of tobacco use Current smoker [facility] History of tobacco use Cigarette Smoker P [facility] Start: 01-16-2022 End: 07-21-2022 Cigarettes smoked current (pack per day) - Reported 0.3 [facility] Start: 01-16-2022 End: 02-07-2024 Tobacco use and exposure Smokeless tobacco non-user [facility] Start: 04-26-2023 End: 03-05-2024 Alcohol intake Current non-drinker of alcohol (finding) [facility] Start: 07-21-2022 End: 03-05-2024 Social connection and isolation panel [facility] Do you belong to any clubs or organizations such as yazidi groups, unions, fraternal or athletic groups, or school groups? No [facility] Are you now , , , , never or living with a partner? [facility] How often to you hav e a drink containing alcohol? Never [facility] How many standard dr inks containing alcohol do you have on a typical day? Patient does not drink [facility] Do you feel stress - tense, restless, nervous, or anxious, or unable to sleep at night because your mind is troubled all the time - these days [OSQ] Not at all [facility] Start: 1935 Sex Assigned At Not on file P [facility] Start: 12-11-2014 Sex Female (finding) [facility] Clinical Notes 05-26-2020 to 03-05-2024 Seven Palmer, - 03/05/2024 1:45 PM EDTTelephone Encounter - Soraida Lemon [facility] - 03/04/2024 10:01 AM EDTTelephone Encounter - Seven Palmer, - 03/04/2024 10:01 AM EDT Note Date & Type Note Facility 03-05-2024 History of Present illness Narrative Subjective Patient ID: Ramy Madrigal is a 88 y.o. female. She got up to go to the bathroom and felt the room was leaning and she fell into the corner of the closet and fell on the floor. She hit the side of her nose and her left hand. It was gone when she got up. She did have a recent cold. She also got flu and COVID boosters recently. Dizziness The following portions of the patient's history were reviewed and updated as appropriate: allergies, current medications, past family history, past medical history, past social history, past surgical history, problem list, and medication reconciliation was completed including current medication and post discharge medication. Review of Systems Neurological: Positive for dizziness. Objective Physical Exam Exam conducted with a commercial loan processor present (Daughter and Omar Boyd MS III). Constitutional: General: She is not in acute distress. Appearance: She is not ill-appearing. HENT: Head: Normocephalic and atraumatic. Right Ear: Tympanic membrane, ear canal and external ear normal. Left Ear: Tympanic membrane, ear canal and external ear normal. Eyes: Extraocular Movements: Extraocular movements intact. Right eye: Normal extraocular motion and no nystagmus. Left eye: Normal extraocular motion and no nystagmus. Conjunctiva/sclera: Conjunctivae normal. Comments: Normal Hallpike [place] maneuver but did get symptoms upon sitting back up. Blood pressure was checked and it was 122/100 Cardiovascular: Rate and Rhythm: Normal rate and regular rhythm. Musculoskeletal: Cervical back: Neck supple. No tenderness. Lymphadenopathy: Cervical: No cervical adenopathy. Skin: Findings: No bruising. Neurological: General: No focal deficit present. Mental Status: She is alert and oriented to person, place, and time. Cranial Nerves: Cranial nerves 2-12 are intact. No cranial nerve deficit, dysarthria or facial asymmetry. Sensory: Sensation is intact. Coordination: Coordination is intact. Romberg sign negative. Coordination normal. Kzrhib-Adde-Ybkmbm Test and Heel to Gaines Test normal. Rapid alternating movements normal. Gait: Tandem walk abnormal (Unable to do heel-to-toe walk as she felt unsteady). Comments: Negative Romberg's. No dysdiadochokinesia. Psychiatric: Mood and Affect: Mood normal. Behavior: Behavior normal. Thought Content: Thought content normal. Judgment: Judgment normal. Assessment/Plan Ramy was seen today for dizziness. Diagnoses and all orders for this visit: Dizziness - Cancel: Vas carotid duplex bilateral; Future - Vas carotid duplex bilateral; Future I am going to check her carotid arteries. She does have dizziness but with vague symptoms not strongly consistent with vertigo but suggestive of. Will try meclizine to use as needed every 8 hours and at bedtime. Appears intact neurologically otherwise. Other orders - meclizine (ANTIVERT) 12.5 mg tablet; Take 1 tablet (12.5 mg total) by mouth 3 (three) times a day as needed for dizziness. documented in this encounter [facility] 03-04-2024 Miscellaneous Notes Patient called and is having dizzy spells when standing and was wondering if she needs to be seen or can you send something in for her dizzy spells? She should probably be seen. Is it vertigo? documented in this encounter [facility] 03-04-2024 Telephone encounter Note Patient called and is having dizzy spells when standing and was wondering if she needs to be seen or can you send something in for her dizzy spells? [facility] 03-04-2024 Telephone encounter Note She should probably be seen. Is it vertigo? [facility] 02-07-2024 History of Present illness Narrative Subjective Patient ID: Ramy Madrigal is a 88 y.o. female. Ramy presents today for a CV and controlled substance recheck. She also has an upper respiratory infection she would like to have checked. She has a cough and is tired. There is no fever. She denies any shortness a breath. It started about 2 weeks ago after getting flu shot. Occasional productive cough. She has a sore throat. She wonders if some of that maybe due to her anti-reflux medication that was changed. She was switched from omeprazole to famotidine because of her chronic kidney disease and other risks but she had to go back to the omeprazole and took it for a couple days and that seemed to work really well and then she has since restarted the famotidine twice a day and it has been better. She is using zolpidem every night at bedtime with benefit. She has tried other sleeping agents but they are not effective. This continues to work. She does not wake up feeling groggy in the morning. The following portions of the patient's history were reviewed and updated as appropriate: allergies, current medications, past family history, past medical history, past social history, past surgical history, problem list, and medication reconciliation was completed including current medication and post discharge medication. Review of Systems Constitutional: Positive for fatigue. Negative for chills, fever and unexpected weight change. HENT: Positive for sore throat. Respiratory: Positive for cough. Negative for apnea, choking, chest tightness and shortness of breath. Objective Physical Exam HENT: Head: Normocephalic. Right Ear: Decreased hearing noted. Left Ear: Decreased hearing noted. Nose: Nose normal. No mucosal edema, congestion or rhinorrhea. Right Turbinates: Not enlarged, swollen or pale. Left Turbinates: Not enlarged, swollen or pale. Comments: Nasal mucosa beefy red Mouth/Throat: Lips: Spade. Mouth: Mucous membranes are moist. Tongue: No lesions. Palate: No mass. Pharynx: Posterior oropharyngeal erythema present. No pharyngeal swelling or oropharyngeal exudate. Tonsils: No tonsillar exudate. Eyes: General: No scleral icterus. Extraocular Movements: Extraocular movements intact. Conjunctiva/sclera: Conjunctivae normal. Cardiovascular: Rate and Rhythm: Normal rate and regular rhythm. Pulses: Normal pulses. Heart sounds: Normal heart sounds. No murmur heard. Pulmonary: Effort: Pulmonary effort is normal. No respiratory distress. Breath sounds: Normal breath sounds. No wheezing, rhonchi or rales. Abdominal: General: Bowel sounds are normal. Palpations: Abdomen is soft. Tenderness: There is no abdominal tenderness. Musculoskeletal: Cervical back: Neck supple. No rigidity or tenderness. Right lower leg: No edema. Left lower leg: No edema. Lymphadenopathy: Cervical: No cervical adenopathy. Skin: Findings: No rash. Neurological: General: No focal deficit present. Mental Status: She is oriented to person, place, and time. Psychiatric: Attention and Perception: Attention and perception normal. Mood and Affect: Mood and affect normal. Speech: Speech normal. Behavior: Behavior normal. Behavior is cooperative. Thought Content: Thought content normal. Cognition and Memory: Cognition normal. Judgment: Judgment normal. Assessment/Plan Ramy was seen today for controlled and cold like symptoms. Diagnoses and all orders for this visit: 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 ([facility]) - Basic Metabolic Panel; Future - CBC; Future - Magnesium; Future - Uric acid; Future - Phosphorus; Future - Parathyroid Hormone, intact; Future - Vitamin D 25 hydroxy; Future Blood pressure at goal. Check chronic kidney disease labs. Acquired hypothyroidism - Thyroid profile includes TSH FT4; Future Check TSH and T4. Prediabetes - Hemoglobin A1c; Future Check A1c to see if she has transitioned to diabetes. Upper respiratory tract infection, unspecified type - POCT Influenza A/Influenza B/SARS-COV-2 Veritor Likely viral upper respiratory infection. Use ckcc-hxd-ktdohev medications for symptom control. COVID and flu swabs were negative. Persistent insomnia Stable. Continue current regimen. She is using high risk medication with benefit. She is not having any side effects. The OARRS/MAPPS database was reviewed today and found to be appropriate. No indication of medication diversion, or non compliance. Gastroesophageal reflux disease, unspecified whether esophagitis present She has occasional breakthrough symptoms. Okay to use omeprazole as needed but try to stay on the famotidine twice a day. Hypercholesterolemia Check lipid panel Overweight Discussed a slight weight gain of 2 lb. Likely due to clothes. Very likely normal weight without clothes Other orders - omeprazole (PriLOSEC) 20 mg capsule; Take 1 capsule (20 mg total) by mouth daily as needed (heartburn). documented in this encounter [facility] 09-26-2023 Note [facility] Consult Note Reason for visit: follow up, DC PPM [facility] 09/27/23 Patient here for 6 mo follow up complete heart block, acute diastolic chest pain, and device check. She is doing very well. She denies chest pain, SOB, palpitations, and lightheadedness/syncope. Device check reveals 100% RV pacing. 03/17/23 Patient here for 6 month follow up Has been doing well without complaints of CP, SOB, ROGEL. She has occasional LE edema which is typically resolved by the morning. She continues to have some fatigue but this has improved with device rate response increase, thyroid levels recently have been abnormal and she was being seen by PCP for this Device check 10/11/22: underlying CHB, normal device function, stable lead thresholds. No arrhythmias noted. Echocardiogram 09/08/2022 shows normal LVEF For cardiomyopathy since her LVEF is normal heart rate response was increased to enable better heart rate response during activity and she has noticed a difference in how she feels since. She continues to get some fatigue but it has improved with device function change Labs 01/30/2023 sodium 142, K3.5, chloride 98, CO2 33, BUN 20, creatinine 1.0, GFR 55, TSH 5, T42.72 Which is elevated, PTH 38, CBC unremarkable 08/23/22 HPI: Ramy Madrigal is a 88 y.o. year old with past medical history of third-degree complete AV block, underwent dual-chamber pacemaker placement with Dr Talbot. Chest x-ray did not show any evidence of pneumothorax, but CT reveaeled concern for pneumo/hemopericardium and elevated RV thresholds at implant and later. 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 No intervention was planned and Cardiovascular Surgery felt she was not a candidate for CABG. She has since been d/c and has been stable without any dizziness or lightheadedness or chest pain or shortness of breath. Patient was noted to have high RV thresholds and this revealed the fact that there was perforation. she was taken back to the OR and had the lead removed by Dr. Can. the RV wall was sutured and a new RV lead was implanted. Today she has come for follow-up. her device check done today reveals good thresholds. she is being paced in the atrium 20% of the time and has 92% ventricular pacing. she endorses fatigue. her last echo was from a year ago which showed EF of 55%. no recent echo done ----- CXR (08/06/21) IMPRESSION: No acute findings other than some mild congestion of the lung verduzco and early overload. Appropriate appearance of the pacemaker. Cardiovascular Laboratory Report (08/04/21) PROCEDURES PERFORMED: 1. Selective coronary angiography. 2. Limited right common femoral artery angiography. FINAL IMPRESSIONS: 1. Significant, 60%, ostial left main stenosis. 2. Nonobstructive coronary artery disease of LAD, LCX, and RCA. RECOMMENDATIONS: 1. Recommend CT surgical consultation for possible bypass surgery given significant left main stenosis. 2. We would recommend stat CTA left chest to rule out aortic dissection as a cause of the patient's chest pain given wide pulse pressure and atypical presentation. 3. Optimization of medical management for coronary artery disease. 4. Further recommendations as per Inpatient Cardiology Consult Service. The patient will need close monitoring with telemetry given significant left main stenosis. EP lab (08/04/21) IMPRESSIONS: 1. Complete heart block. 2. Dual-chamber pacemaker insertion. 3. Contrast injection for venography of the upper extremity. 4. Conscious sedation. 5. Fluoroscopy. ECHO (08/03/21) Left Ventricle: The left ventricle is normal size. Global left ventricular systolic function is normal. The EF is 60 % visually. Left ventricular wall thickness is mildly increased. No regional wall motion abnormality. Concentric cardiac remodeling. Right Ventricle: The right ventricle is normal in size. Normal right ventricular systolic function. Doppler studies suggest severely elevated right sided pressures. RVSP 69, RA 8 Great Vessels: IVC: The IVC is dilated. Respiratory inspiration greater than 50%. Overall Conclusions: No significant valvular abnormalities CTA chest (08/04/21) IMPRESSION: Severe calcified coronary arterial disease. Trace pneumopericardium. No acute aortic pathology. Moderate bilateral pleural effusions. Interstitial pulmonary edema. PMH: Past Medical History: Diagnosis Date Abnormal ECG Complete AV block (CMS/HCC) Hyperlipidemia Hypothyroidism PSH: Past Surgical History: Procedure Laterality Date APPENDECTOMY CARDIAC PACEMAKER PLACEMENT CT CHEST ANGIOGRAM W AND/OR WO IV CONTRAST 08/04/2021 CT CHEST ANGIOGRAM W AND/OR WO IV CONTRAST DEXTER CONVERSION INSERT / REPLACE / REMOVE PACEMAKER KNEE SURGERY TONSILLECTOMY TOTAL ABDOMINAL HYSTERECTOMY SH: Social Determinants of Health To (more content not included)... [facility] 04-02-2024 History of Present illness Narrative Subjective Patient ID: Ramy Madrigal is a 88 y.o. female. Ramy presents today for recheck of controlled substance. She is using Ambien every night with benefit. She has not having any side effects. Does not do any sleep walking or driving. She uses it with trazodone and the combination works great . She wakes up feeling refreshed. She has energy throughout the day. It is helping improve her quality of life. She just did have her thyroid and metabolic panel done in July. She is feeling better from her illness. Review of Systems Constitutional: Negative. HENT: Positive for hearing loss (She just got hearing aids). Eyes: Negative. Respiratory: Negative. Cardiovascular: Negative. Gastrointestinal: Positive for constipation. Endocrine: Negative. Genitourinary: Negative. Allergic/Immunologic: Negative. Neurological: Negative. Psychiatric/Behavioral: Positive for sleep disturbance. Objective Physical Exam Constitutional: General: She is not in acute distress. Appearance: She is overweight. Eyes: General: No scleral icterus. Extraocular Movements: Extraocular movements intact. Conjunctiva/sclera: Conjunctivae normal. Cardiovascular: Rate and Rhythm: Normal rate and regular rhythm. Pulses: Normal pulses. Heart sounds: Normal heart sounds. No murmur heard. Pulmonary: Effort: Pulmonary effort is normal. No respiratory distress. Breath sounds: Normal breath sounds. No wheezing, rhonchi or rales. Musculoskeletal: Cervical back: No tenderness. Right lower leg: No edema. Left lower leg: No edema. Lymphadenopathy: Cervical: No cervical adenopathy. Neurological: General: No focal deficit present. Mental Status: She is alert and oriented to person, place, and time. Gait: Gait is intact. Psychiatric: Attention and Perception: Attention normal. Mood and Affect: Mood and affect normal. Speech: Speech normal. Behavior: Behavior normal. Behavior is cooperative. Thought Content: Thought content normal. Cognition and Memory: Cognition normal. Assessment/Plan Ramy was seen today for controlled substance. Diagnoses and all orders for this visit: 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 ([facility]) Blood pressure at goal. Previous basic metabolic panel reviewed and discussed. Her GFR actually improved to greater than 60-it is now 65. Prediabetes She defers A1c today. Will get at next visit with rest of her labs. Persistent insomnia She is doing well with Ambien and trazodone. She has not having any side effects. She is deriving benefit. It is helping her sleep so she has more energy the next day. The OARRS/MAPPS database was reviewed today and found to be appropriate. No indication of medication diversion, or non compliance. Overweight She is just barely overweight with clothes on. Likely normal weight without clothes. We did discuss diet extensively. Encouraged exercise. Other insomnia - zolpidem (AMBIEN) 10 mg tablet; Take 1 tablet (10 mg total) by mouth nightly as needed for sleep. - Drug Screen, Urine; Future Check urine for drugs of abuse and presence of medication. Medication monitoring encounter - Drug Screen, Urine; Future As above Hypothyroidism Her TSH discussed and it was suppressed. Levothyroxine was adjusted and will check it next visit. documented in this encounter [facility] 08-08-2023 Evaluation note Diagnosis 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 ([facility])- Primary Prediabetes Other abnormal glucose Persistent insomnia Overweight Other insomnia Medication monitoring encounter Encounter for therapeutic drug monitoring Acquired hypothyroidism Unspecified hypothyroidism documented in this encounter [facility]03-19-2024 History of Present illness Narrative* Seven Palmer DO - 07/25/2023 4:00 PM EDT Subjective SUBJECTIVE: Patient ID: Ramy Madrigal is a 88 y.o. female who presents for a Medicare Annual Wellness exam. HPI The following portions of the patient's history were reviewed and updated as appropriate: allergies, current medications, past family history, past medical history, past social history, past surgicalhistory and problem list. AWV FLOWSHEET : Lifestyle Assessment Do you smoke or use smokeless tobacco?: No If you smoke or use smokeless tobacco, are you ready to quit?: NA Are you exposed to secondhand smoke?: No On average, how many drinks of alcohol do you consume in a week?: None Do you exercise for 30 or more minutes on average at least 3 days a week?: (!) Never Do you have any tooth, denture, or oral problems?: No Do you snore or has anyone told you that you snore?: No Do you try to eat a balanced diet?: Yes Do you experience leakage of urine, also known as urinary incontinence?: Never Do you have difficulty performing any of these activities? (check all that apply): None Do you have difficulty performing any of these activities? (check all that apply): None Fall Risk Fall Risk Assessment Completed?: Yes Have you fallen in the past year?: No Are you worried about falling?: No Do you feel unsteady when standing or walking?: No Risk Stratification: Low Risk Depression Screening Little interest or pleasure in doing things: Not at all Feeling down, depressed, or hopeless: Not at all Trouble falling or staying asleep, or sleeping too much: Not at all Feeling tired or having little energy: Not at all Poor appetite or overeating: Not at all Feeling bad about yourself - or that you are a failure or have let yourself or your family down: Not at all Trouble concentrating on things, such as reading the newspaper or watching television: Not at all Moving or speaking so slowly that other people could have noticed. Or the opposite - being so fidgety or restless that you have been moving around a lot more than usual: Not at all Thoughts that you would be better off , or of hurting yourself in some way: Not at all PEG Scale Safety Assessment Do you have throw rugs on the floor?: (!) Yes Do you feel safe at your home?: Yes Do you feel unsteady when walking?: No Are you having difficulty with driving?: No Do you have trouble seeing?: No What assistive device do you use? (check all that apply): None Hearing Assessment Do you strain or struggle to hear/understand conversations?: No Do you have trouble hearing the television or radio when others do not?: No Does your family ever voice concerns about your hearing?: No Do you wear hearing aid/s?: (!) Yes Personal Health During the past 4 weeks, how would you rate your overall health?: Excellent Do you understand how to take all of your medications?: Yes How confident are you that you can control and manage most of your health problems?: Very confident In the past 12 months, how many times have you been hospitalized?: None End of Life Planning Do you have a living will?: Yes Do you have a durable power of securities attorney?: Yes Cognitive Screening Do you have trouble remembering or recalling facts or events?: (!) Yes Do family members or caregivers report that you have difficulty remembering things?: (!) Yes [employer] REVIEW OF SYSTEMS: Review of Systems Objective PHYSICAL EXAMINATION: Vitals: 07/25/23 1603 BP: 124/58 BP Site: Left Arm Weight: 56.7 kg (125 lb) Height: 149.9 cm (4' 11 ) Physical Exam Assessment/Plan ASSESSMENT/PLAN Encounter Diagnoses Name Primary? Medicare annual wellness visit, subsequent Yes Screening for depression Health maintenance discussed. Depression screen was negative. At least 3 minute spent administering and discussing. Cognitive screening did not reveal any impairment. She has advanced directives in place. Return in about 1 year (around 07/24/2024). [facility] Miscellaneous Notes* Telephone Encounter - RIN Dawson - 07/19/2023 1:00 PM EDT The [employer] database was reviewed today and found to be appropriate. No indication of medication diversion, or non compliance. [facility] Telephone encounter Note* Telephone Encounter - RIN Dawson - 07/19/2023 1:00 PM EDT The OARRS/[employer] database was reviewed today and found to be appropriate. No indication of medication diversion, or non compliance. [facility] History of Present illness Narrative* Nickie Coombs, SAKINA - 07/17/2023 3:00 PM EDT Subjective Patient ID: Ramy Madrigal is a 88 y.o. female. She has been ill for a weak No fever, but increased fatigue for the past week She does have a cough Not productive She is drinking a lot of fluids but appetite not great Ears are fine She doesn't feel plugged She has been taking mucinex dm but not with much relief No difficulty breathing The following portions of the patient's history were reviewed and updated as appropriate: allergies, current medications, past family history, past medical history, past social history, past surgicalhistory, problem list, and medication reconciliation was completed including current medication andpost discharge medication. Review of Systems Constitutional: Positive for appetite change. Negative for chills, diaphoresis, fatigue, fever and unexpected weight change. HENT: Positive for congestion and rhinorrhea. Negative for ear pain, facial swelling, hearing loss,mouth sores, sinus pressure, sinus pain, trouble swallowing and voice change. Respiratory: Negative for cough, chest tightness and shortness of breath. Cardiovascular: Negative for chest pain, palpitations and leg swelling. Gastrointestinal: Positive for anal bleeding. Negative for abdominal distention, diarrhea, nausea and vomiting. Endocrine: Negative. Genitourinary: Negative. Musculoskeletal: Negative. Skin: Negative. Allergic/Immunologic: Negative. Neurological: Negative. Hematological: Negative. Objective Physical Exam Vitals and nursing note reviewed. Constitutional: Appearance: Normal appearance. HENT: Head: Normocephalic. Right Ear: Tympanic membrane, ear canal and external ear normal. Left Ear: Tympanic membrane, ear canal and external ear normal. Nose: Congestion and rhinorrhea present. Mouth/Throat: Mouth: Mucous membranes are moist. Pharynx: Posterior oropharyngeal erythema present. Eyes: Conjunctiva/sclera: Conjunctivae normal. Neck: Vascular: No carotid bruit. Cardiovascular: Rate and Rhythm: Normal rate and regular rhythm. Pulses: Normal pulses. Heart sounds: Normal heart sounds. Pulmonary: Effort: Pulmonary effort is normal. Breath sounds: Normal breath sounds. Abdominal: General: Abdomen is flat. Palpations: Abdomen is soft. There is no mass. Tenderness: There is no guarding. Hernia: No hernia is present. Musculoskeletal: Right lower leg: No edema. Left lower leg: No edema. Lymphadenopathy: Cervical: No cervical adenopathy. Skin: General: Skin is warm and dry. Neurological: Mental Status: She is alert and oriented to person, place, and time. Psychiatric: Mood and Affect: Mood normal. Thought Content: Thought content normal. Judgment: Judgment normal. Assessment/Plan Ramy was seen today for uri. 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 ([facility]) - Basic Metabolic Panel; Future Acquired hypothyroidism - Thyroid profile includes TSH FT4; Future Continue to rest and hydrate, she is doing well lungs are clear, afebrile and symptoms are subsiding, continue the robitussin dm Her blood pressure is stable Labs drawn to check electrolytes and kidney function and to check thyroid as it was adjusted 6 months ago and she is still having some feelings of fatigue SAKINA Galaviz 07/17/23 1729 [facility] Evaluation note* Diagnosis Viral upper respiratory tract infection- Primary Acute upper respiratory infections of unspecified site 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 ([facility]-H[facility]) Acquired hypothyroidism Unspecified hypothyroidism documented [facility] encounter [facility]2023 NoteUT Electrophysiology Consult Note Reason for visit: 6 month follow up, DC PPM biotronik 03/17/23 Patient here for 6 month follow up Has been doing well without complaints of CP, SOB, ROGEL. She has occasional LE edema which is typically resolved by the morning. She continues to have some fatigue but this has improved with device rate response increase, thyroid levels recently have been abnormal and she was being seen by PCP for this Device check 10/11/22: underlying CHB, normal device function, stable lead thresholds. No arrhythmias noted. Echocardiogram 09/08/2022 shows normal LVEF For cardiomyopathy since her LVEF is normal heart rate response was increased to enable better heart rate response during activity and she has noticed a difference in how she feels since. She continues to get some fatigue but it has improved with device function change Labs 01/30/2023 sodium 142, K3.5, chloride 98, CO2 33, BUN 20, creatinine 1.0, GFR 55, TSH 5, T42.72 Which is elevated, PTH 38, CBC unremarkable 08/23/22 HPI: Ramy Madrigal is a 87 y.o. year old with past medical history of third-degree complete AV block, underwent dual-chamber pacemaker placement with Dr Talbot. Chest x-ray did not show any evidence of pneumothorax, but CT reveaeled concern for pneumo/hemopericardium and elevated RV thresholds at implant and later. 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 No intervention was planned and Cardiovascular Surgery felt she was not a candidate for CABG. She has since been d/c and has been stable without any dizziness or lightheadedness or chest pain or shortness of breath. Patient was noted to have high RV thresholds and this revealed the fact that there was perforation. she was taken back to the OR and had the lead removed by Dr. Can. the RV wall was sutured and a new RV lead was implanted. Today she has come for follow-up. her device check done today reveals good thresholds. she is being paced in the atrium 20% of the time and has 92% ventricular pacing. she endorses fatigue. her last echo was from a year ago which showed EF of 55%. no recent echo done CXR (08/06/21) IMPRESSION: No acute findings other than some mild congestion of the lung verduzco and early overload. Appropriate appearance of the pacemaker. Cardiovascular Laboratory Report (08/04/21) PROCEDURES PERFORMED: 1. Selective coronary angiography. 2. Limited right common femoral artery angiography. FINAL IMPRESSIONS: 1. Significant, 60%, ostial left main stenosis. 2. Nonobstructive coronary artery disease of LAD, LCX, and RCA. RECOMMENDATIONS: 1. Recommend CT surgical consultation for possible bypass surgery given significant left main stenosis. 2. We would recommend stat CTA left chest to rule out aortic dissection as a cause of the patient's chest pain given wide pulse pressure and atypical presentation. 3. Optimization of medical management for coronary artery disease. 4. Further recommendations as per Inpatient Cardiology Consult Service. The patient will need close monitoring with telemetry given significant left main stenosis. EP lab (08/04/21) IMPRESSIONS: 1. Complete heart block. 2. Dual-chamber pacemaker insertion. 3. Contrast injection for venography of the upper extremity. 4. Conscious sedation. 5. Fluoroscopy. ECHO (08/03/21) Left Ventricle: The left ventricle is normal size. Global left ventricular systolic function is normal. The EF is 60 % visually. Left ventricular wall thickness is mildly increased. No regional wall motion abnormality. Concentric cardiac remodeling. Right Ventricle: The right ventricle is normal in size. Normal right ventricular systolic function. Doppler studies suggest severely elevated right sided pressures. RVSP 69, RA 8 Great Vessels: IVC: The IVC is dilated. Respiratory inspiration greater than 50%. Overall Conclusions: No significant valvular abnormalities CTA chest (08/04/21) IMPRESSION: Severe calcified coronary arterial disease. Trace pneumopericardium. No acute aortic pathology. Moderate bilateral pleural effusions. Interstitial pulmonary edema. PMH: Past Medical History: Diagnosis Date Abnormal ECG Complete AV block (CMS/HCC) Hyperlipidemia Hypothyroidism PSH: Past Surgical History: Procedure Laterality Date APPENDECTOMY CARDIAC PACEMAKER PLACEMENT CTA CHEST W AND/OR WO IV CONTRAST 08/04/2021 CT CHEST ANGIOGRAM W AND/OR WO IV CONTRAST DEXTER CONVERSION INSERT / REPLACE / REMOVE PACEMAKER KNEE SURGERY TONSILLECTOMY TOTAL ABDOMINAL HYSTERECTOMY SH: Social Determinants of Health Tobacco Use: Unknown (03/03/2023) Patient History Smoking Tobacco Use: Never Smokeless Tobacco Use: Unknown Passive Exposure: Not on file Alcohol Use: Not on file Financial Resource Strain: Not on file Food Insecurity: Not on file Transpor (more content not included)...[facility] 03-03-2023 NotePatient here for 6 mo follow up for complete AV block s/p PPM. She is scheduled next month for routine device interrogation. Denies chest pain, SOB, lightheadedness, and palpitations. She had a bunch of routine labs last month. Her BP had been running high so PCP added amlodipine. Review of Systems Cardiovascular: Positive for leg swelling (resolves by morning). All other systems reviewed and are negative.[facility] 12-14-2021 NoteMR#: [id number] I [facility] Pt. Name: Raym Madrigal Admitted: 11/29/2021 Discharged: 12/01/2021 Date of : 1935 Physician: Sindhu Can MD DISCHARGE SUMMARY PROCEDURE: 1. Left mini thoracotomy and repair of a right ventricular perforation. 2. Removal of right ventricular lead. 3. Excisional debridement of pacemaker pocket. 4. Insertion of right ventricular pacemaker lead. SURGERY DATE: 11/29/2021. HOSPITAL COURSE: An 86-year-old female who had undergone a recent pacemaker implant for third-degree heart block. She was pacemaker dependent. The patient was noted to have increasing chest pain as well as increasing thresholds of the lead. Evaluation of the chest pain by CT showed the lead to have perforated the right ventricle. She was admitted for the above-named procedure. She tolerated the surgery well. There were no complications. She was taken from the operating room to the PACU for recovery. She was admitted to the step-down unit. She did well postoperatively. She was evaluated by Physical and Occupational therapy on postoperative day #1. She was able to ambulate without difficulty. Tolerated a regular diet. No nausea or vomiting. She demonstrated good bowel and bladder function prior to hospital discharge. The pacemaker interrogation showed adequate sensing and pacing with adequate thresholds. CONDITION AT DISCHARGE: Good. Stable. DISCHARGE DISPOSITION: Home with home care. PRIMARY DIAGNOSES: 1. Complete heart block. 2. Right ventricular perforation. 3. Essential hypertension. 4. Hypothyroidism. 5. Gastroesophageal reflux disease. 6. Coronary artery disease. 7. Electrolyte imbalance. 8. Essential hypertension. 9. Chronic diastolic heart failure. DISCHARGE MEDICATIONS: The following home medications were continued upon discharge: 1. Aspirin 81 mg once daily. 2. Atorvastatin 80 mg once daily. 3. Lasix 40 mg once daily. 4. Levothyroxine 75 mcg once daily. 5. Liothyronine 5 mcg tablets, 1 tablet once daily. 6. Magnesium oxide 400 mg twice daily. 7. Vitamin B12, 1 tablet daily. 8. Metoprolol succinate 50 mg once daily. 9. Potassium chloride 20 mEq once daily. 10. Prilosec OTC 20 mg once daily. 11. Trazodone 50 mg once daily at bedtime. 12. Zolpidem 10 mg once daily. The following new medications were prescribed at discharge: 1. Acetaminophen 650 mg every 8 hours as needed for pain. 2. Oxycodone 5 mg every 6 hours as needed for pain. DISCHARGE INSTRUCTIONS: Written and verbal instructions were provided on care of surgical incision and chest tube wound. Cautioned on need to monitor for any changes in the appearance of the wounds such as increased redness, warmth, swelling, or drainage. The patient instructed to call if she develops fever, chills, shortness of breath, dizziness or lightheadedness, or any new symptoms. We will be following up with Ms. Allan in 7-10 days for postoperative evaluation and wound check. Instructions were provided on importance of restricting activity of left upper extremity. Wear sling until followup appointment. Followup appointments were also provided with her diabetic educator and PCP. Electronically Signed by: Sindhu Can MD 12/19/2021 03:08 P Sindhu Can MD I personally saw this patient on the day of the encounter, performed the chinchilla portion(s) of the service and participated in the management and confirm the resident's documentation. Please note there may be an additional personal documentation from me. Date Dict: 12/13/2021/01:48 P/Gigi Brown CNP Date Trans: 12/14/2021 04:18 A/roya [id number] cc: Seven Palmer M.D. [facility] [address] [place], [place] [address], [address] [place] [id number]04[facility]22 NoteMR#: [id number] I [facility] Pt. Name: Ramy Madrigal Admitted: 08/02/2021 Discharged: 08/06/2021 Date of : 1935 Physician: Little Hill MD DISCHARGE SUMMARY DIAGNOSIS AT ADMISSION: Complete heart block. DIAGNOSES AT DISCHARGE: 1. Third-degree complete heart block, status post dual-chamber pacemaker. 2. Chronic diastolic congestive heart failure. 3. Hypertension. 4. Coronary artery disease. HOSPITAL COURSE: This is an 86-year-old female who came to hospital after falling, found to have a third-degree complete AV block, underwent dual-chamber pacemaker placement with Cardiology. Chest x-ray did not show any evidence of pneumothorax, but some pulmonary vascular congestion, even though the patient did not have any respiratory, tachypnea or distress or any oxygen requirement. Started on the Lasix, to be continued at home for diastolic dysfunction along with continuation of aspirin, beta blockers and statins due to left main 60% stenosis. No intervention was planned, Cardiology also even consulted Cardiovascular Surgery, who did not think the patient is a candidate for surgical intervention either. The patient remains hemodynamically stable without any dizziness or lightheadedness or chest pain or shortness of breath. PHYSICAL EXAMINATION: At the time of discharge: VITAL SIGNS: The patient blood pressure 107/44 mmHg, heart rate 69 per minute, temperature is 98 degree Fahrenheit, respirations 17 per minute. EYES: No pallor or jaundice. ENT: No nasal discharge. RESPIRATORY: Bilateral air entry. CARDIOVASCULAR: S1, S2. ABDOMEN: Soft, nontender. MEDICATIONS: Reviewed, reconciled. DISCHARGE INSTRUCTIONS: The patient will be discharged to home with heart healthy diet and follow with Cardiology for post dual chamber pacemaker along with underlying CAD. Physical activity as tolerated except no heavy weight lifting of more than 10 pounds from left arm for 6 weeks. CONDITION ON DISCHARGE: Stable. Time spent on discharge process 35 minutes. Electronically Signed by: Little Hill MD 08/09/2021 12:58 P Little Hill MD Date Dict: 08/06/2021/02:52 P/Little Hill MD Date Trans: 08/06/2021 04:04 P/roya [id number] [facility]07-08-2021 Note [id number]06-26-2021 NoteEducation Materials Orthopedics Total Knee Replacement, Care After This sheet gives you information about how to care for yourself after your procedure. Your doctor may also give you more specific instructions. If you have problems or questions, contact your doctor. What can I expect after the procedure? After the procedure, it is common to have: ? Pain. ? Swelling. ? A small amount of blood coming from your cut from surgery (incision). ? Clear fluid coming from your cut from surgery. ? Limited movement of your knee. Follow these instructions at home: Medicines ? Take szsz-vhb-enfyarj and prescription medicines only as told by your doctor. ? If you were prescribed a blood thinner (anticoagulant), take it as told by your doctor. ? Ask your doctor if the medicine prescribed to you: ? Requires you to avoid driving or using heavy machinery. ? Can cause trouble pooping (constipation). You may need to take steps to prevent or treat trouble pooping: ? Drink enough fluid to keep your pee (urine) pale yellow. ? Take tlfw-fft-cjjlwhk or prescription medicines. ? Eat foods that are high in fiber. These include beans, whole grains, and fresh fruits and vegetables. ? Limit foods that are high in fat and sugar. These include fried or sweet foods. Bathing ? Do not take baths, swim, or use a hot tub until your doctor approves. Ask your doctor if you may take showers. You may only be allowed to take sponge baths. ? Keep your bandage (dressing) dry until your doctor says it can be taken off. Incision care and drain care ? Follow instructions from your doctor about how to take care of your cut from surgery. Make sure you: ? Wash your hands with soap and water before and after you change your bandage. If you cannot use soap and water, use hand data center manager. ? Change your bandage as told by your doctor. ? Leave stitches (sutures), skin glue, or skin tape (adhesive) strips in place. They may need to stay in place for 2 weeks or longer. If tape strips get loose and curl up, you may trim the loose edges. Do not remove tape strips completely unless your doctor says it is okay. ? Check your cut from surgery and your drain site every day for signs of infection. Check for: ? More redness, swelling, or pain. ? More fluid or blood. ? Warmth. ? Pus or a bad smell. ? If you have a drain, follow instructions from your doctor about caring for it. Managing pain, stiffness, and swelling ? If told, put ice on your knee. ? Put ice in a plastic bag or use the icing device (cold flow pad or cryocuff) that you were given.Follow your doctor's directions about how to use the icing device. ? Place a towel between your skin and the bag or between your skin and the icing device. ? Leave the ice on for 20 minutes, 2?3 times per day. ? If told, put heat on your knee before you exercise. Use the heat source that your doctor recommends, such as a moist heat pack or a heating pad. ? Place a towel between your skin and the heat source. ? Leave the heat on for 20?30 minutes. ? Remove the heat if your skin turns bright red. This is very important if you are unable to feel pain, heat, or cold. You may have a greater risk of getting burned. ? Move your toes often. ? Raise (elevate) your knee above the level of your heart while you are sitting or lying down. ? Use several pillows to keep your leg straight. ? Do not put a pillow just under the knee. If the knee is bent for a long time, this may make the knee stiff. ? Wear elastic knee support as told by your doctor. Activity ? Rest as told by your doctor. ? Do not sit for a long time without moving. Get up to take short walks every 1?2 hours. This is important. Ask for help if you feel weak or unsteady. ? Ask your doctor what activities are safe for you. ? Avoid activities that put stress on your knees. These include running, jumping rope, and jumping jacks. ? Do not play contact sports until your doctor says it is okay. ? Do exercises as told by your physical therapist. ? If you have been sent home with a knee joint motion machine (continuous passive motion machine), use it as told by your doctor. Safety ? Do not use your leg to support your body weight until your doctor says that you can. Use crutchesor a walker as told by your doctor. ? Do not drive until your doctor says it is okay. Ask your doctor when it is safe to drive. General instructions ? Do not use any products that contain nicotine or tobacco, such as cigarettes, e-cigarettes, and chewing tobacco. These can delay healing. If you need help quitting, ask your doctor. ? Wear special socks (compression stockings) as told by your doctor. ? Tell your doctor if you plan to have dental work. Also: ? Tell your dentist about your joint replacement. ? Ask your doctor if there are ins (more content not included)...[id number] Discharge Summary PERSON INFORMATION Name RAMY MADRIGAL Age 85 Years 1935 Sex FEMALE Language Thai PCP SEVEN PALMER Marital Status Med Service Swing Acct# Arrival 10/27/2020 14:15:00 Visit Reason R TKA Acuity LOS 003 20:40 Address: [address] [place] [id number] Comment: PROVIDER INFORMATION VITALS INFORMATION Vital Sign Triage Latest Temp Oral 36.4 DegC 36.8 DegC Temp Temporal 36.6 DegC 36.4 DegC Temp Intravascular Temp Axillary Temp Rectal 02 Sat 96 % 94 % Respiratory Rate 18 br/min 18 br/min Peripheral Pulse Rate 72 bpm 81 bpm Apical Heart Rate 88 bpm 83 bpm Blood Pressure 108 mmHg / 67 mmHg 167 mmHg / 75 mmHg Comment: MEDICAL INFORMATION Allergy Info: Tape; penicillin Medication List: Medications That Were Updated - Follow Below Instructions Other Medications Updated: calcium carbonate (Oyster Shell Calcium 500) 500 Milligram Oral 2 times a day. Medications to Continue That Have Not Changed Other Medications ascorbic acid (ascorbic acid 500 mg oral capsule) 1 cap(s) Oral every day. aspirin (aspirin 81 mg oral tablet) 1 tab(s) Oral 2 times a day. cholecalciferol (Vitamin D3 1000 intl units oral capsule) 2 cap(s) Oral every day. cyanocobalamin (Vitamin B-12 100 mcg oral tablet) 1 tab(s) Oral every day. docusate (docusate sodium 100 mg oral tablet) 1 tab(s) Oral 2 times a day. ferrous sulfate (ferrous sulfate 325 mg (65 mg elemental iron) oral tablet) 1 tab(s) Oral 2 times aday. levothyroxine (levothyroxine 75 mcg (0.075 mg) oral tablet) 1 tab(s) Oral every day. liothyronine (liothyronine 5 mcg oral tablet) 1 tab(s) Oral every day. lovastatin (lovastatin 40 mg oral tablet) 1 tab(s) Oral once a day (at bedtime). metoprolol (Metoprolol Succinate ER 50 mg oral tablet, extended release) 1 tab(s) Oral every day. multivitamin with iron (Poly Iron 150 Forte oral capsule) 1 cap(s) Oral every day. omeprazole (PriLOSEC 10 mg oral delayed release capsule) 1 cap(s) Oral every day. potassium chloride (potassium chloride 20 mEq oral tablet, extended release) 1 tab(s) Oral 2 times a day. zolpidem (Ambien 10 mg oral tablet) 1 tab(s) Oral once a day (at bedtime) as needed as needed for insomnia. No Longer Take the Following Medications acetaminophen (acetaminophen 1,000mg/100ml IVPB Soln) 160 Milligram Oral Every 6 hours as needed asneeded for pain. amLODIPine (amLODIPine 10 mg oral tablet) 1 tab(s) Oral every day. clindamycin (clindamycin 600 mg/50 mL-NaCl 0.9% intravenous solution) 600 Milligram Intravenous every 8 hours. hydroCHLOROthiazide (hydroCHLOROthiazide 25 mg oral tablet) 1 tab(s) Oral every day. loratadine (Allergy Relief) 1 tab(s) Oral every day. omega-3 polyunsaturated fatty acids ([employer] Bounty Red Krill Oil 500 mg oral capsule) pyridoxine (Vitamin B6 100 mg oral tablet) 1 tab(s) Oral every day. Comment: Lab and Radiology Results Laboratory or Other Results This Visit (last charted value for your 10/27/2020 visit) Hematology 10/29/2020 8:09 AM Hct: 36.9 % -- Normal range between ( 33.7 and 40.4 ) Hgb: 12.0 gm/dL -- Normal range between ( 11.3 and 15.9 ) MCH: 30 pg -- Normal range between ( 24 and 34 ) MCHC: 32 gm/dL -- Normal range between ( 26 and 37 ) MCV: 92 fL -- Normal range between ( 81 and 100 ) MPV: 10.2 fL -- Normal range between ( 6.3 and 10.2 ) Platelet: 361 x103/mcL -- Normal range between ( 138 and 427 ) RBC: 4.03 x106/mcL -- Normal range between ( 3.70 and 5.30 ) RDW: 14.7 % -- Normal range between ( 11.5 and 15.0 ) WBC: 9.4 x103/mcL -- Normal range between ( 3.5 and 10.5 ) Auto Eos %: 4.9 % -- Normal range between ( 0.9 and 4.0 ) Auto Lymph %: 23 % -- Normal range between ( 14 and 48 ) Auto Neut %: 63 % -- Normal range between ( 44 and 88 ) Eos Abs#: 0.5 x103/mcL -- Normal range between ( 0.0 and 0.4 ) Lymph Abs#: 2.2 x103/mcL -- Normal range between ( 1.3 and 2.9 ) [place] Abs#: 0.8 x103/mcL -- Normal range between ( 0.0 and 0.8 ) Auto Baso %: 0.7 % -- Normal range between ( 0.2 and 2.0 ) Auto [place] %: 9 % -- Normal range between ( 1 and 12 ) Baso Abs#: 0.1 x103/mcL -- Normal range between ( 0.0 and 0.2 ) Neut Abs#: 5.9 x103/mcL -- Normal range between ( 1.5 and 9.2 ) Chemistry 10/29/2020 8:09 AM Creatinine Level: 0.63 mg/dL -- Normal range between ( 0.60 and 1.30 ) BUN: 12 mg/dL -- Normal range between ( 8 and 26 ) Chloride Level: 99 mmol/L -- Normal range between ( 101 and 111 ) CO2: 25 mmol/L -- Normal range between ( 21 and 32 ) Glucose Level: 120.0 mg/dL -- Normal range between ( 74.0 and 118.0 ) Osmolality: 275 mOsm/L Potassium Level: 4.0 mmol/L -- Normal range between ( 3.6 and 5.1 ) Sodium Level: 137.0 mmol/L -- Normal range between ( 136.0 and 144.0 ) Anion Gap: 17.0 mmol/L -- Normal range between ( 5.0 and 19.0 ) Calcium Level: 9.3 mg/dL -- Normal range between ( 8.9 and 10.3 ) BUN/Creat Ratio (more content not included)...[facility] [id number] Note [id number]#[id number] NoteEducation Materials 1. Follow-up With physician appeals assistant Delonte Guerin previously scheduled 2. Flex/extend feet/ankles 10 times/hour while awake 3. Flex and extend knee Over the side of the bed or chair 10 times at least 4 times a day. 4. Strict ice and elevation with knee straight, above heart at least 4 times a day for half an houruntil pain and swelling better controlled. 5. Knee-high XIMENA hose to be worn at all times on both legs except bathing. 6. Proceed immediately to the emergency room for chest pain or shortness of breath. 7. Call [phone] Young or call [facility] and have me paged for anyquestions or concerns 8. may shower starting 4 days after surgery. Shower, no baths or submerging incision 9. Redress incision daily with an Hina bandage And fresh gauze 10. Use incentive spirometer 10 at least times a day. 11. Get up every 2 hours and walk around the house with walker for 1-2 minutes, weightbearing as tolerated to operative leg while awake 12. Aspirin 81 mg twice a day for 30 days to thin your blood to prevent blood clots. 13. You have been given a prescription for Percocet 5/325 mg take 1 pills every 6 hours as needed for pain. Narcotics are addictive and Percocet is a narcotic so use it sparingly.[facility] [id number] [facility] Clinical Discharge Summary PERSON INFORMATION Name RAMY MADRIGAL Age 85 Years 1935 Sex FEMALE Language Thai PCP [facility] Marital Status Med Service Observation Acct# Arrival 10/23/2020 05:52:00 Visit Reason SURGERY - RIGHT TOTAL KNEE POSSIBLE STEMS AND AUGS POSSIBLE PATELLA AUGMENT SYSYEM - GORDY Acuity LOS 004 08:09 Address: [address] [place] [id number] Comment: PROVIDER INFORMATION VITALS INFORMATION Vital Sign Triage Latest Temp Oral 36.6 DegC 36.4 DegC Temp Temporal 36.0 DegC 36.7 DegC Temp Intravascular Temp Axillary Temp Rectal 02 Sat 100 % 96 % Respiratory Rate 16 br/min 18 br/min Peripheral Pulse Rate 67 bpm 72 bpm Apical Heart Rate 76 bpm 76 bpm Blood Pressure 126 mmHg / 54 mmHg 108 mmHg / 67 mmHg Comment: MEDICAL INFORMATION Allergy Info: Tape; penicillin Medication List: Medications That Were Updated - Follow Below Instructions Other Medications Updated: cholecalciferol (Vitamin D3 1000 intl units oral capsule) 2 cap(s) Oral every day. Updated: lovastatin (lovastatin 40 mg oral tablet) 1 tab(s) Oral once a day (at bedtime). Updated: multivitamin with iron (Poly Iron 150 Forte oral capsule) 1 cap(s) Oral every day. Medications to Continue That Have Not Changed Printed Prescriptions acetaminophen-oxycodone (Percocet 5/325 oral tablet) 1 tab(s) Oral Every 6 hours as needed for painfor 7 Days. Refills: 0. Other Medications acetaminophen (acetaminophen 1,000mg/100ml IVPB Soln) 160 Milligram Oral Every 6 hours as needed asneeded for pain. amLODIPine (amLODIPine 10 mg oral tablet) 1 tab(s) Oral every day. ascorbic acid (ascorbic acid 500 mg oral capsule) 1 cap(s) Oral every day. aspirin (aspirin 81 mg oral tablet) 1 tab(s) Oral 2 times a day. calcium carbonate (Oyster Shell Calcium 500) 1,250 Milligram Oral 2 times a day. clindamycin (clindamycin 600 mg/50 mL-NaCl 0.9% intravenous solution) 600 Milligram Intravenous every 8 hours. cyanocobalamin (Vitamin B-12 100 mcg oral tablet) 1 tab(s) Oral every day. docusate (docusate sodium 100 mg oral tablet) 1 tab(s) Oral 2 times a day. ferrous sulfate (ferrous sulfate 325 mg (65 mg elemental iron) oral tablet) 1 tab(s) Oral 2 times aday. hydroCHLOROthiazide (hydroCHLOROthiazide 25 mg oral tablet) 1 tab(s) Oral every day. levothyroxine (levothyroxine 75 mcg (0.075 mg) oral tablet) 1 tab(s) Oral every day. liothyronine (liothyronine 5 mcg oral tablet) 1 tab(s) Oral every day. loratadine (Allergy Relief) 1 tab(s) Oral every day. metoprolol (Metoprolol Succinate ER 50 mg oral tablet, extended release) 1 tab(s) Oral every day. omega-3 polyunsaturated fatty acids (Nature's Bounty Red Krill Oil 500 mg oral capsule) omeprazole (PriLOSEC 10 mg oral delayed release capsule) 1 cap(s) Oral every day. potassium chloride (potassium chloride 20 mEq oral tablet, extended release) 1 tab(s) Oral 2 times a day. pyridoxine (Vitamin B6 100 mg oral tablet) 1 tab(s) Oral every day. zolpidem (Ambien 10 mg oral tablet) 1 tab(s) Oral once a day (at bedtime) as needed as needed for insomnia. Comment: Lab and Radiology Results Laboratory or Other Results This Visit (last charted value for your 10/23/2020 visit) Hematology 10/26/2020 6:41 AM Hct: 34.5 % -- Normal range between ( 33.7 and 40.4 ) Hgb: 11.1 gm/dL -- Normal range between ( 11.3 and 15.9 ) MCH: 30 pg -- Normal range between ( 24 and 34 ) MCHC: 32 gm/dL -- Normal range between ( 26 and 37 ) MCV: 92 fL -- Normal range between ( 81 and 100 ) MPV: 10.7 fL -- Normal range between ( 6.3 and 10.2 ) Platelet: 283 x103/mcL -- Normal range between ( 138 and 427 ) RBC: 3.74 x106/mcL -- Normal range between ( 3.70 and 5.30 ) RDW: 15.0 % -- Normal range between ( 11.5 and 15.0 ) WBC: 9.7 x103/mcL -- Normal range between ( 3.5 and 10.5 ) Auto Eos %: 5.4 % -- Normal range between ( 0.9 and 4.0 ) Auto Lymph %: 27 % -- Normal range between ( 14 and 48 ) Auto Neut %: 56 % -- Normal range between ( 44 and 88 ) Eos Abs#: 0.5 x103/mcL -- Normal range between ( 0.0 and 0.4 ) Lymph Abs#: 2.6 x103/mcL -- Normal range between ( 1.3 and 2.9 ) [place] Abs#: 1.0 x103/mcL -- Normal range between ( 0.0 and 0.8 ) Auto Baso %: 0.7 % -- Normal range between ( 0.2 and 2.0 ) Auto [place] %: 10 % -- Normal range between ( 1 and 12 ) Baso Abs#: 0.1 x103/mcL -- Normal range between ( 0.0 and 0.2 ) Neut Abs#: 5.4 x103/mcL -- Normal range between ( 1.5 and 9.2 ) Urinalysis 10/23/2020 7:49 AM UA Blood: NEGATIVE UA Color: Yellow UA Glucose: NEGATIVE UA Ketones: NEGATIVE UA Leuk Est: NEGATIVE UA Nitrite: NEGATIVE UA Protein: NEGATIVE UA Urobilinogen: 0.2 mg/dL -- Normal range between ( 0.2 and 1.0 ) UA pH: 6.0 -- Normal range between ( 5 and 8 ) UA Spec Grav: <=1.005 -- Normal range between ( 1.001 and 1.035 ) UA Clarity: CLEAR Micro?: Not Indicated Culture?: Not Indicated UA B (more content not included)...[facility] [id number] Note [id number]#1.00[facility]02-01-2021 [id number]#[address] [place] [address] 05-28-[id number]#[address] [place], [place] 1362101-20-2021 NoteEducation Materials POST OPERATIVE TOTAL KNEE/HIP DISCHARGE INTRUCTIONS SURGEONS WRITTEN INSTRUCTIONS: Walk with walker; bear weight to tolerance on operative extremity Elevate extremity 1 hour 3 times/day to control pain and swelling and apply cyrocuff Range of motion to ankle 10 times/hour keep dressing in place clean and dry Ximena hose (compression stockings) for 6 weeks Physical therapy as prescribed Take Aspirin 81mg 2x daily to prevent blood clots, coated or uncoated per patient preference. Continuous use of immobilizer. May open immobilizer to ice if needed for pain. Use walker weight-bear as tolerated to right lower extremity no flexion of right knee. Hardware to repair patellar fracture will need to be removed once we are assured that patella is healed. WHAT YOU SHOULD KNOW AFTER YOUR OPERATION: If you need pain pills, start before the pain becomes intense. Pain pills are frequently less upsetting to your stomach if you take them with food such as crackers or bread. If you have excessive or persistent pain, swelling, bleeding, nausea, vomiting or any other problems, you should first call your surgeon for advice. If you are unable to contact your surgeon, seek help from the emergency room. FOR THE PREVENTION OF DVT AFTER LOWER EXTREMITY SURGERY What is a DVT? There is always the risk of DVT after lower extremity surgery. DVT, or deep vein thrombosis, is a blood blot in a major vein that may partially or completely block the flow of blood. The clot occurs in the legs or pelvis, in areas where blood flow is slow, or in an injured blood vessel. DVT can be life-threatening should pieces of the clot break away and travel to the lungs. This is called pulmonary embolism What are the symptoms of DVT? The area affected by the blood clot may become swollen and painful, and possibly turn red as the normal flow of blood is blocked. You may also develop edema, which is the build up of fluid in the skin tissues surrounding the clot. If the clot is somewhere other than your leg, there may be no physical signs of DVT. If the clot breaks away and travels to your lungs, you may experience shortness of breath and chest pain. If this occurs you should call your doctor immediately or go to the emergencyroom. How can I prevent DVT? You should keep active. Moving the ankle and foot and bending the knee as tolerated when you are inbed and walking as tolerated. Take medication, especially the Aspirin, as prescribed by your doctor. What should I do if I think I have a DVT? You should call your doctor or go to the emergency room any time you have a sudden and unusual shortness of breath that is not related to exercise, exertion or anxiety. If you have swelling with redness and pain in your leg, you should call your doctor immediately. If there is concern then a test called ?Venous Doppler? can be done to rule of a DVT. POST OPERATIVE TOTAL KNEE/HIP DISCHARGE INTRUCTIONS SURGEONS WRITTEN INSTRUCTIONS: Walk with walker; bear weight to tolerance on operative extremity Elevate extremity 1 hour 3 times/day to control pain and swelling and apply cyrocuff Range of motion to ankle 10 times/hour Range of motion to knee hourly Change dressing daily. Reapply silver dressing for next four days then discontinue Ximena hose (compression stockings) for 6 weeks Physical therapy as prescribed May shower, no tub bath. Do not rub/scrub incision. Wash gently Take Aspirin 325mg 2x daily to prevent blood clots, coated or uncoated per patient preference. WHAT YOU SHOULD KNOW AFTER YOUR OPERATION: If you need pain pills, start before the pain becomes intense. Pain pills are frequently less upsetting to your stomach if you take them with food such as crackers or bread. If you have excessive or persistent pain, swelling, bleeding, nausea, vomiting or any other problems, you should first call your surgeon for advice. If you are unable to contact your surgeon, seek help from the emergency room. FOR THE PREVENTION OF DVT AFTER LOWER EXTREMITY SURGERY What is a DVT? There is always the risk of DVT after lower extremity surgery. DVT, or deep vein thrombosis, is a blood blot in a major vein that may partially or completely block the flow of blood. The clot occurs in the legs or pelvis, in areas where blood flow is slow, or in an injured blood vessel. DVT can be life-threatening should pieces of the clot break away and travel to the lungs. This is called pulmonary embolism What are the symptoms of DVT? The area affected by the blood clot may become swollen and painful, and possibly turn red as the normal flow of blood is blocked. You may also develop edema, which is the build up of fluid in the skin tissues surrounding the clot. If the clot is somewhere other than your leg, there may be no physical signs of DVT. If the clot breaks away and travels to your lungs, you may experience shortness of breath and chest pain. If this occurs you should call your doctor immediately or g (more content notincluded)...[facility] [id number] [facility] Clinical Discharge Summary PERSON INFORMATION Name RAMY MADRIGAL Age 85 Years 1935 Sex FEMALE Language Thai PCP [facility] Marital Status Med Service Observation Acct# Arrival 05/26/2020 07:20:00 Visit Reason SURGERY - RIGHT TOTAL KNEE Acuity LOS 000 29:55 Address: [address] [place] [id number] Comment: PROVIDER INFORMATION VITALS INFORMATION Vital Sign Triage Latest Temp Oral 37.0 DegC 36.5 DegC Temp Temporal 36.6 DegC 36.6 DegC Temp Intravascular Temp Axillary Temp Rectal 02 Sat 97 % 95 % Respiratory Rate 16 br/min 16 br/min Peripheral Pulse Rate 79 bpm 72 bpm Apical Heart Rate Blood Pressure 142 mmHg / 68 mmHg 117 mmHg / 56 mmHg Comment: MEDICAL INFORMATION Allergy Info: Tape; penicillin Medication List: New Medications Printed Prescriptions acetaminophen-oxycodone (Percocet 5/325 oral tablet) 1 tab(s) Oral every 6 hours as needed for painfor 7 Days. Refills: 0. Medications That Were Updated - Follow Below Instructions Other Medications Updated: aspirin (aspirin 81 mg oral tablet) 1 tab(s) Oral 2 times a day. Updated: lovastatin (lovastatin 40 mg oral tablet) 1 tab(s) Oral every day. Updated: zolpidem (Ambien 10 mg oral tablet) 1 tab(s) Oral once a day (at bedtime) as needed as needed for insomnia. Medications to Continue That Have Not Changed Other Medications amLODIPine (amLODIPine 10 mg oral tablet) 1 tab(s) Oral every day. cholecalciferol (Vitamin D3 1000 intl units oral capsule) 1 cap(s) Oral every other day. cholecalciferol (Vitamin D3 2000 intl units oral tablet) 1 tab(s) Oral every day. cyanocobalamin (Vitamin B-12 100 mcg oral tablet) 1 tab(s) Oral every day. hydroCHLOROthiazide (hydroCHLOROthiazide 25 mg oral tablet) 1 tab(s) Oral every day. levothyroxine (levothyroxine 75 mcg (0.075 mg) oral tablet) 1 tab(s) Oral every day. liothyronine (liothyronine 5 mcg oral tablet) 1 tab(s) Oral every day. loratadine (Allergy Relief) 1 tab(s) Oral every day. metoprolol (Metoprolol Succinate ER 50 mg oral tablet, extended release) 1 tab(s) Oral every day. multivitamin with iron (Poly Iron 150 Forte oral capsule) TAKE 1 CAPSULE BY MOUTH ONCE DAILY FOR 30DAYS. omeprazole (omeprazole 20 mg oral delayed release capsule) 1 cap(s) Oral every day. potassium chloride (potassium chloride 20 mEq oral tablet, extended release) 1 tab(s) Oral 2 times a day. pyridoxine (Vitamin B6 100 mg oral tablet) 1 tab(s) Oral every day. No Longer Take the Following Medications omega-3 polyunsaturated fatty acids (Nature's Bounty Red Krill Oil 500 mg oral capsule) 1 tab(s) Oral every day. Comment: Lab and Radiology Results Laboratory or Other Results This Visit (last charted value for your 05/26/2020 visit) Hematology 05/27/2020 6:14 AM Hct: 41.6 % -- Normal range between ( 33.7 and 40.4 ) Hgb: 13.8 gm/dL -- Normal range between ( 11.3 and 15.9 ) MCH: 28 pg -- Normal range between ( 24 and 34 ) MCHC: 33 gm/dL -- Normal range between ( 26 and 37 ) MCV: 86 fL -- Normal range between ( 81 and 100 ) MPV: 11.1 fL -- Normal range between ( 6.3 and 10.2 ) Platelet: 293 x103/mcL -- Normal range between ( 138 and 427 ) RBC: 4.85 x106/mcL -- Normal range between ( 3.70 and 5.30 ) RDW: 13.1 % -- Normal range between ( 11.5 and 15.0 ) WBC: 14.2 x103/mcL -- Normal range between ( 3.5 and 10.5 ) Auto Eos %: 0.0 % -- Normal range between ( 0.9 and 4.0 ) Auto Lymph %: 8 % -- Normal range between ( 14 and 48 ) Auto Neut %: 89 % -- Normal range between ( 44 and 88 ) Eos Abs#: 0.0 x103/mcL -- Normal range between ( 0.0 and 0.4 ) Lymph Abs#: 1.1 x103/mcL -- Normal range between ( 1.3 and 2.9 ) [place] Abs#: 0.5 x103/mcL -- Normal range between ( 0.0 and 0.8 ) Auto Baso %: 0.1 % -- Normal range between ( 0.2 and 2.0 ) Auto [place] %: 3 % -- Normal range between ( 1 and 12 ) Baso Abs#: 0.0 x103/mcL -- Normal range between ( 0.0 and 0.2 ) Neut Abs#: 12.6 x103/mcL -- Normal range between ( 1.5 and 9.2 ) Chemistry 05/27/2020 6:14 AM Chloride Level: 101 mmol/L -- Normal range between ( 101 and 111 ) CO2: 28 mmol/L -- Normal range between ( 21 and 32 ) Potassium Level: 3.5 mmol/L -- Normal range between ( 3.6 and 5.1 ) Sodium Level: 139.0 mmol/L -- Normal range between ( 136.0 and 144.0 ) Anion Gap: 14.0 mmol/L -- Normal range between ( 5.0 and 19.0 ) Diagnostic Radiology 05/26/2020 2:59 PM XR Knee One or Two Views Right: XR Knee One or Two Views Right Radiology Report 05/27/2020 5:13 AM Radiology Report: Radiology Report DIET & ACTIVITY Patient Activity Level: As Tolerated Patient Diet: Regular Patient Activity Restrictions: Discontinue Alcohol Use, No driving, No heavy lifting DISCHARGE INFORMATION Discharge Disposition: Home Discharge Location: Home DEPART REASON INCOMPLETE INFORMATION PATIENT EDUCATION INFORMATION Instructions: [place] Total Hip/Knee/DVT (more content not included)...[facility] 05-26-2020 [id number]* Diagnosis Acquired hypothyroidism Unspecified hypothyroidism Persistent insomnia Primary hypertension Unspecified essential hypertension [facility] Diagnosis Persistent insomnia- Primary [facility] Diagnosis Other insomnia- Primary [facility] Diagnosis Acquired hypothyroidism Unspecified hypothyroidism [facility] Diagnosis Medicare annual wellness visit, subsequent- Primary Screening for depression [facility]* Diagnosis 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 ([facility])- Primary Acquired hypothyroidism Unspecified hypothyroidism Prediabetes Other abnormal glucose Upper respiratory tract infection, unspecified type Persistent insomnia Gastroesophageal reflux disease, unspecified whether esophagitis present Hypercholesterolemia Pure hypercholesterolemia Overweight [facility]* Diagnosis Dizziness- Primary Dizziness and giddiness documented [facility] filedocumented in this encounter [facility] on filedocumented [facility] filedocumented in this [facility]Not on filedocumented in this encounter [facility] on filedocumented in this [facility] on filedocumented in this [facility] on filedocumented in this [facility] Summary Purpose Family History No Family History Records FoundNo Family History Records FoundNo Family History Records FoundNo Family History Records FoundNo Family History Records FoundNo Family History Records FoundNo Family History Records FoundNo Family History Records Found Advance Directives No Advanced Directives Records FoundNo Advanced Directives Records FoundNo Advanced Directives Records FoundNo Advanced Directives Records FoundNo Advanced Directives Records FoundNo Advanced Directives Records FoundNo Advanced Directives Records FoundNo Advanced Directives Records Found Additional Source Comments INFORMATION SOURCE (unrecogn ized section and content) DATE CREATED AUTHOR 11/13/2020 [facility] DATE CREATED AUTHOR AUTHOR'S ORGANIZ ATION 07/07/2021 [facility] DATE CREATED AUTHOR AUTHOR'S ORGANIZ ATION 12/19/2021 [facility] DATE CREATED AUTHOR AUTHOR'S ORGANIZ ATION 09/15/2022 [facility] DATE CREATED AUTHOR AUTHOR'S ORGANIZ ATION 09/29/2023 [facility] EPIC DATE CREATED AUTHOR AUTHOR'S ORGANIZ ATION 10/01/2023 [facility] DATE CREATED AUTHOR AUTHOR'S ORGANIZ ATION 02/09/2024 [facility] DATE CREATED AUTHOR AUTHOR'S ORGANIZ ATION 03/07/2024 [facility] Reason for Visit (unrecogniz ed section and content) Reason Comments Med Refill Reason Onset Date Comments Med Refill 05/10/2023 Reason Comments URI X 1 week otc meds ar en't working Reason Onset Date Comments Med Refill 07/19/2023 Reason Onset Date Comments Med Refill 07/25/2023 Reason Comments medicare annual wellness Reason Comments controlled substance Reason Comments controlled Cold Like Symptoms fatigue Reason Comments Dizziness X 2 weeks Care Teams (unrecognized sec tion and content) Student Activities Director Relationship Specialty Start Date End Date Seven Palmer DO [address] [place] [address] PCP - General Family Medicine 02/18/20 Student Activities Director Relationship Specialty Start Date End Date Seven Palmer DO [address] [place] [address] PCP - General Family Medicine 02/18/20 Student Activities Director Relationship Specialty Start Date End Date Seven Palmer DO [address] [place] [address] PCP - General Family Medicine 02/18/20 Student Activities Director Relationship Specialty Start Date End Date Seven Palmer DO [address] [place] [address] PCP - General Family Medicine 02/18/20 Student Activities Director Relationship Specialty Start Date End Date Seven Palmer DO [address] [place] [address] PCP - General Family Medicine 02/18/20 Student Activities Director Relationship Specialty Start Date End Date Seven Palmer DO [address] [place] [address] PCP - General Family Medicine 02/18/20 Student Activities Director Relationship Specialty Start Date End Date Seven Palmer DO [address], [place] [address] PCP - General Family Medicine 02/18/20 Student Activities Director Relationship Specialty Start Date End Date Seven Palmer DO [address], [place] [address] PCP - [facility] 02/18/20 Student Activities Director Relationship Specialty Start Date End Date Seven Palmer DO [address], [place] [address] PCP - [facility] 02/18/20 Student Activities Director Relationship Specialty Start Date End Date Seven Palmer DO [address], [place] [address] PCP - [facility] 02/18/20 Student Activities Director Relationship Specialty Start Date End Date Seven Palmer DO [address], [address] [place] [address] PCP - [facility] 02/18/20 FOR RECORDS PERTAINING TO PATIENTS WHO ARE OR HAVE BEEN ENROLLED IN A CHEMICAL DEPENDENCY/SUBSTANCEABUSE PROGRAM, SOME INFORMATION MAY BE OMITTED. This clinical summary was aggregated from multiple sources. Caution should be exercised in using it in the provision of clinical care. This summary normalizes information from multiple sources, and as a consequence, information in this document may materially change the coding, format and clinical context of patient data. In addition, data may be omitted in some cases. CLINICAL DECISIONS SHOULD BE BASED ON THE PRIMARY CLINICAL RECORDS. [employer] [facility]. provides no warranty or guarantee of the accuracy or completeness of information in this document.
== END 2024-03-09 14:13 | disposition home or self-care (01) ==
LOC: US 14:12
PROVIDERS: PCP Family Medicine; Visit Provider Family Medicine
DX: R42 Dizziness and giddiness (principal)
CPT/HCPCS: 93880

== ENCOUNTER 2025-03-20 15:45 | Outpatient (OUT) | payer MEDICARE, SELFPAY ==
--- OUTSIDE RECORDS SUMMARY | 2025-03-10 12:40 | XMS_ITS | Encounter Summary ---
Author Organization [facility] Address [address] [place] [address] Care Team Providers Care Chicken Hatchery Helper Name Role Phone Seven Franco DO Primary Care Provider [phone] Encounter Details DateTypeDepartmentCare Team (Latest Contact Info)Nkrowlpsdjz11/03/2025 12:40 PM ESTAncillary Procedure [facility] [address] [place] [address] Adjustment and management of cardiac pacemaker Social History Tobacco UseTypesPacks/DayYears UsedDateSmoking Tobacco: NeverAlcohol UseStandard Drinks/WeekCommentsNot Currently0 (1 standard drink = 0.6 oz pure alcohol)[place] Safety & EnvironmentAnswerDate RecordedFear of Current or Ex-PartnerNot on file 06/29/2023Emotionally AbusedNot on file06/29/2023hysically AbusedNot on file 06/29/2023Sexually AbusedNot on file4Physically or Sexually AbusedNot on file06/29/2023CommentsUnknownSex and Gender InformationValueDate RecordedSex Assigned at IxsbhDktshu62/11/2025 8:59 PM EDTLegal SexFemale 11/04/2021 12:35 AM EDTGender YlaijeqpHsqghf53/11/2025 8:59 PM EDTSexual OrientationDon't know12/16/2024 8:59 PM EDTdocumented as of this encounter Plan of Treatment Not on file documented as of this encounter Procedures Procedure NamePriorityDate/TimeAssociated DiagnosisCommentsCARDIAC DEVICE CHECK CHECK - OYDSZNZjvziih52/05/2025 5:11 PM EST Adjustment and management of cardiac pacemaker documented in this encounter Results * CARDIAC DEVICE CHECK - REMOTE - PACEMAKER (03/12/2025 5:11 PM EST)Component ValueRef RangeTest MethodAnalysis TimePerformed AtPathologist SignatureBSA1.59 [id number] (Source)Anatomical Location / LateralityCollection Method / VolumeCollection TimeReceived Time Narrative Authorizing ProviderResult TypeResult StatusBlair Antione [facility] IMPLANTABLE CARDIAC DEVICE PROCEDURESFinal ResultPerforming OrganizationAddressCity/State/ZIP Code Phone Number CPACS documented in this encounter Visit Diagnoses Diagnosis Adjustment and management of cardiac pacemaker Fitting and adjustment of cardiac pacemaker documented in this encounter Care Teams Team MemberRelationshipSpecialtyStart DateEnd Date Seven Franco DO [address] [facility] PCP - General01/15/22documented as of this encounter
--- OUTSIDE RECORDS SUMMARY | 2025-03-11 10:45 | XMS_ITS | Encounter Summary ---
Author Organization [facility] Address [address] [place] [address] Care Team Providers Care Pie Cutter Name Role Phone Seven Franco DO Primary Care Provider [phone] Encounter Details DateTypeDepartmentCare Team (Latest Contact Info)Bpvfhogylyb21/04/2025 10:45 AM ESTAncillary Procedure [facility] Heart at [address] [address] Encounter for implantable defibrillator reprogramming or check Social History Tobacco UseTypesPacks/DayYears UsedDateSmoking Tobacco: NeverAlcohol UseStandard Drinks/WeekCommentsNot Currently0 (1 standard drink = 0.6 oz pure alcohol)UT Safety & EnvironmentAnswerDate RecordedFear of Current or Ex-PartnerNot on file 06/29/2023Emotionally AbusedNot on file06/29/2023hysically AbusedNot on file 06/29/2023Sexually AbusedNot on file06/29/2023hysically or Sexually AbusedNot on file06/29/2023CommentsUnknownSex and Gender InformationValueDate RecordedSex Assigned at YeinfAlxlho79/11/2025 8:59 PM EDTLegal SexFemale 11/04/2021 12:35 AM EDTGender EgwfhrjpPyogkz00/11/2025 8:59 PM EDTSexual OrientationDon't know12/16/2024 8:59 PM EDTdocumented as of this encounter Functional Status * BPAnswerDate of CmprkkzjbsEwxssx500/6003/11/2025 11:13 AM Marta Gonzalez MA * PulseAnswerDate of MvybkmuzvpHlkgob5103/04/2025 11:13 AM Marta Gonzalez MA * Patient PositionAnswerDate of QcsowngesoVqvigaSzdavhj73/04/2025 11:13 AM Marta Figueroa MA * BPAnswerDate of DpaguxitomBddzvy705/6003/11/2025 11:13 AM Marta Gonzalez MA * PulseAnswerDate of GtwcmkbjmeLkxbqf5695/04/2025 11:13 AM Marta Gonzalez MA * EyD3JmjgszKjgh of HedvhxjvgvTnupkh0102/04/2025 11:13 AM Marta Gonzalez MA * BP LocationAnswerDate of AssessmentAuthorLeft arm03/11/2025 11:13 AM Marta Figueroa MA * Patient PositionAnswerDate of MtmvehukbcBnqmsbGhjcvph30/04/2025 11:13 AM Marta Figueroa MA documented as of this encounter Plan of Treatment Not on file documented as of this encounter Procedures Procedure NamePriorityDate/TimeAssociated DiagnosisCommentsCARDIAC DEVICE CHECK - IN CLINIC - PACEMAKER DUAL CHAMBER W/ NDTTTbkalap56/07/2025 10:56 AM EST Encounter for implantable defibrillator reprogramming or check documented in this encounter Results * CARDIAC DEVICE CHECK - IN CLINIC - PACEMAKER DUAL CHAMBER W/ PROG (03/14/2025 10:56 AM EST)ComponentValueRef RangeTest MethodAnalysis TimePerformed At Pathologist SignatureBSA1.59m2GE PACS CARDIOAnatomical RegionLaterality ModalityOtherSpecimen (Source)Anatomical Location / LateralityCollection Method / VolumeCollection TimeReceived Time Narrative 03/19/2025 3:33 PM EST Normal device function Authorizing ProviderResult TypeResult StatusPaul John [facility] IMPLANTABLE CARDIAC DEVICE PROCEDURESFinal Result documented in this encounter Visit Diagnoses Diagnosis Encounter for implantable defibrillator reprogramming or check Fitting and adjustment of automatic implantable cardiac defibrillator documented in this encounter Care Teams Team MemberRelationshipSpecialtyStart DateEnd Date Seven Franco DO [address] [facility] PCP - General01/15/22documented as of this encounter
--- OUTSIDE RECORDS SUMMARY | 2025-03-11 11:30 | XMS_ITS | Encounter Summary ---
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 Patient denies chest, SOB/ROGEL, palpations/racing heart, leg swellingCoronary Artery DiseaseHypertensionHyperlipidemiaPacemakerComplete AV blockBilateral carotid artery stenosisCongestive Heart Failure Encounter Details DateTypeDepartmentCare Team (Latest Contact Info)Zbstaqnxuhn87/04/2025 11:30 AM ESTOffice Visit [facility] [place] [address] [place] [address] Stevo Lopez MD [address] [place] [id number] Acute combined systolic and diastolic heart failure (CMS/HCC) (Primary Dx); Complete AV block (CMS/HCC) Social History Tobacco UseTypesPacks/DayYears UsedDateSmoking Tobacco: NeverAlcohol UseStandard Drinks/WeekCommentsNot Currently0 (1 standard drink = 0.6 oz pure alcohol)UT Safety & EnvironmentAnswerDate RecordedFear of Current or Ex-PartnerNot on file 06/29/2023Emotionally AbusedNot on file06/29/2023hysically AbusedNot on file 06/29/2023Sexually AbusedNot on file06/29/2023hysically or Sexually AbusedNot on file06/29/2023CommentsUnknownSex and Gender InformationValueDate RecordedSex Assigned at PdqroMgfyug79/11/2025 8:59 PM EDTLegal SexFemale 11/04/2021 12:35 AM EDTGender TgnhtlzqMgsunl12/11/2025 8:59 PM EDTSexual OrientationDon't know12/16/2024 8:59 PM EDTdocumented as of this encounter Last Filed Vital Signs Vital SignReadingTime TakenCommentsBlood Kmfmdbeg967/6003/11/2025 11:13 AM EST Jnwia640203/11/2025 11:13 AM ESTTemperature--Respiratory Rate--Oxygen Saturation 97%03/11/2025 11:13 AM ESTInhaled Oxygen Concentration--Qfkplo89.4 kg (131 lb) 03/11/2025 11:13 AM OMENbxarp929.4 cm (5')03/11/2025 11:13 AM ESTBody Mass Index 25.5803/11/2025 11:13 AM ESTdocumented in this encounter Functional Status * BPAnswerDate of WlzremaajiUfeoee899/6003/11/2025 11:13 AM Marta Gonzalez MA * PulseAnswerDate of UfhnsnzxgyZncjvn8331/04/2025 11:13 AM Marta Gonzalez MA * Patient PositionAnswerDate of OoeikvaikiZaeoddFgyjbrm20/04/2025 11:13 AM Marta Figueroa MA * BPAnswerDate of RlszwwwespUckgkv028/6003/11/2025 11:13 AM Marta Gonzalez MA * PulseAnswerDate of DvwnqlbyxgQvnomq2568/04/2025 11:13 AM Marta Gonzalez MA * PjE8ZbzbclHhiv of SlaacbufmlEzitbn4594/04/2025 11:13 AM Marta Gonzalez MA * BP LocationAnswerDate of AssessmentAuthorLeft arm03/11/2025 11:13 AM Marta Figueroa MA * Patient PositionAnswerDate of PuthqdnremSaudbcXkgpopj50/04/2025 11:13 AM Marta Figueroa MA documented as of this encounter Progress Notes * Stevo Lopez MD - 03/11/2025 11:30 AM EST Images from the original note were not included. [place] Electrophysiology Consult Note Reason for visit: follow up, DC PPM biotronik 03/11/2025 Patient is doing well with no symptoms. Device check that was done today reveals normal functioning Last echocardiogram done on 10/18/2023 shows normal EF of 65% Review of Systems Constitutional: Negative. 09/27/23 Patient here for 6 mo follow up complete heart block, acute diastolic chest pain, and device check.She is doing very well. She denies chest [...] normal device function, stable lead thresholds. No arrhythmiasnoted. Echocardiogram 09/08/2022 shows normal LVEF For cardiomyopathy [...] 20, creatinine 1.0, GFR 55, TSH 5, T42.72Which is elevated, PTH 38, CBC unremarkable 08/23/22 HPI: Nela aMdrigal is a 89 y.o. year old with past medical history of third- degree complete AV block, underwent dual-chamber pacemaker placement with Dr Talbot. Chest x-ray did not show any evidence of pneumothorax, but CT reveaeled concern for pneumo/hemopericardium and elevated RV thresholds at implant and later. 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 No intervention was planned and Cardiovascular Surgery felt she was not a candidate for CABG. She has since beend/c and has been stable without any dizziness [...] APPENDECTOMY CARDIAC PACEMAKER PLACEMENT CTA CHEST W IV CONTRAST 08/04/2021 CT CHEST ANGIOGRAM W AND/OR WO IV CONTRAST DEXTER CONVERSION INSERT / REPLACE / REMOVE PACEMAKER KNEE SURGERY TONSILLECTOMY TOTAL ABDOMINAL HYSTERECTOMY SH: Social Drivers of Health Tobacco Use: Unknown (03/11/2025) Patient History Smoking Tobacco Use: Never Smokeless Tobacco Use: Unknown Passive Exposure: Not on file Recent Concern: Tobacco Use - Medium Risk (02/24/2025) Received from [facility] Patient History Smoking Tobacco Use: Former Smokeless Tobacco Use: Never Passive Exposure: Not on file Alcohol Use: Not At Risk (07/21/2022) Received from [facility] [employer] [facility] AUDIT-C Frequency of Alcohol Consumption: Never Average Number of Drinks: Patient does not drink Frequency of Binge Drinking: Never Financial Resource Strain: Low Risk (07/21/2022) Received from [facility] Overall Financial Resource Strain (CARDIA) Difficulty of Paying Living Expenses: Not hard at all Food Insecurity: No Food Insecurity (02/24/2025) Received from [facility] Hunger Screening Within the past 12 months we worried whether our food would run out before we got money to buy more.: Never True Within the past 12 months the food we bought just didn't last and we didn't have money to get more.: Never True Transportation Needs: No Transportation Needs (07/21/2022) Received from [facility] PRAPARE - Transportation Lack of Transportation (Medical): No Lack of Transportation (Non-Medical): No Physical Activity: Inactive (08/01/2024) Received from [facility] Exercise Vital Sign Days of Exercise per Week: 0 days Minutes of Exercise per Session: 0 min Stress: No Stress Concern Present (07/21/2022) Received from [facility] [employer] - Occupational Stress Questionnaire Feeling of Stress : Not at all Social Connections: Moderately Isolated (08/01/2024) Received from [facility] Social Connection and Isolation Panel [NHANES] Frequency of Communication with Friends and Family: More than three times a week Frequency of Social Gatherings with Friends and Family: More than three times a week Attends Gnosticist Services: More than 4 times per year Active Member of Clubs or Organizations: No Attends Club or Organization Meetings: Never Marital Status: Intimate Partner Violence: Unknown (06/29/2023) [place] Safety & Environment Fear of Current or Ex-Partner: Not on file Emotionally Abused: Not on file Physically Abused: Not on file Sexually Abused: Not on file Physically or Sexually Abused: Not on file Depression: Not at risk (02/24/2025) [facility] PHQ-2 Total Score: 0 Housing Stability: Low Risk (07/21/2022) Received from [facility] Housing Instability Are you worried or concerned that in the next two months you may not have stable housing that you own, rent or stay in as a part of a household?: No Utilities: Not At Risk (07/25/2023) Received from [facility] Utilities Threatened with loss of utilities: No Health Literacy: Not on file Allergies: Allergies Allergen Reactions Penicillins Anaphylaxis Adhesive Other Unknown Other Reaction(s): Unknown Weight: 59.4kg Visit Vitals BP 120/60 (BP Location: Left arm, Patient Position: Sitting) Pulse 67 Ht 1.524 m (5') Wt 59.4 kg (131 lb) SpO2 97% BMI 25.58 kg/m?? Smoking Status Never BSA 1.59 m?? Meds: Current Outpatient Medications on File Prior to Visit Medication Sig Dispense Refill amLODIPine (Norvasc) 10 mg tablet Take 10 mg by mouth in the morning. aspirin 81 mg EC tablet Take 1 tablet by mouth in the morning. atorvastatin (Lipitor) 80 mg tablet Take 1 tablet by mouth at bedtime. cholecalciferol (Vitamin D-3) 25 MCG (1000 units) tablet 1 tablet Orally Every other day cyanocobalamin (Vitamin B-12) 100 mcg tablet as directed Orally furosemide (Lasix) 40 mg tablet Take 1 tablet (40 mg) by mouth once daily as directed. 90 tablet 2 levothyroxine (Synthroid, Levoxyl) 75 mcg tablet Take 1 tablet every day by oral route for 90 days. liothyronine (Cytomel) 5 mcg tablet Take 1 tablet every day by oral route for 90 days. magnesium oxide (Mag-Ox) 400 mg (241.3 mg magnesium) tablet Take 1 tablet by mouth in the morning. meclizine (Antivert) 25 mg tablet Take 12.5 mg by mouth if needed in the morning, at noon, and at bedtime for dizziness. metoprolol succinate XL (Toprol-XL) 50 mg 24 hr tablet Take 1 tablet by mouth in the morning. omeprazole (PriLOSEC) [address] capsule Take 20 mg by mouth every other day. potassium chloride CR (Klor-Con M20) 20 mEq ER tablet Take 1 tablet every day by oral route for 90 days. traZODone (Desyrel) 50 mg tablet Take 1 tablet by mouth in the morning. zolpidem (Ambien) 10 mg tablet Take 1 tablet by mouth at bedtime. No current facility-administered medications on file prior to visit. ROS: Review of Systems Musculoskeletal: Positive for arthritis, back pain, joint pain and myalgias. Neurological: Positive for loss of balance. All other systems reviewed and are negative. Physical Exam: Constitutional General Appearance: well-nourished, well-developed, appears stated age Level of Distress: comfortable Psychiatric Mental Status: alert, normal affect Orientation: oriented to time, place, and person Insight: good judgement Eyes Lids and Conjunctivae: non-injected, no xanthelasma ENMT Ears: no lesions on external ear Nose: no lesions on external nose Oropharynx: no cyanosis, no pallor Neck Neck: supple, trachea midline Carotid Arteries: bilateral normal upstroke, no bruits Jugular Veins: normal jugular venous pressure Thyroid: not enlarged Lungs Respiratory Effort: unlabored Chest Exam: normal curvature, no thoracic deformity Auscultation: clear, no wheezing, no rales, no rhonchi Cardiovascular Rate And Rhythm: regular Heart Sounds: normal S1, normal s2, no gallop Systolic Murmur: not heard Diastolic Murmur: not heard Extremities: no cyanosis, no edema, no peripheral signs of emboli Peripheral Pulses Radial Pulse: normal Abdomen Inspection and Palpation: soft, non distended, no bruit, non tender Musculoskeletal Inspection: no joint swelling Neurologic Gait: normal gait Skin Inspection and Palpation: warm and dry Nails: no clubbing Labs: @LABRESULTS@ Lab Results Component Value Date TSH 3.10 08/04/2021 EKG: No results found for this or any previous visit (from the past 4464 hours). Echo: 10/18/2023 09/08/22 TTE Stress test: Coronary angiogram: Cardiovascular Laboratory Report (08/04/21) PROCEDURES PERFORMED: 1. [...] with telemetry given significant left main stenosis. Diagnostic Imaging: No images are attached to the encounter. Assessment and Plan: #Complete heart block s/p dual-chamber pacemaker. device check today reveals normal parameters withno evidence of atrial fibrillation. Last echocardiogram in October showed normal EF and since been more than a year we will repeat an echocardiogram to ensure there is no pacing in the cardiomyopathy. If this is normal then she just needs to have echocardiogram done on a yearly basis. #Ostial Lt main disease # chest pain- Stable CAD #Acute diastolic heart failure #HTN #HLD #Hypothyroidism #GERD -Conitnue CAD GDMT including ASA, statin, good blood pressure control, beta gabriela; no anginal symptoms or chest pain on exam -Follow up in 6 months or sooner as needed Stevo Lopez MD Cardiac Electrophysiology [facility] documented in this encounter Plan of Treatment NameTypePriorityAssociated DiagnosesOrder ScheduleTransthoracic echo (TTE) completeEchocardiographyRoutine Acute combined systolic and diastolic heart failure (CMS/HCC) Complete AV block (CMS/HCC) Expected: 03/11/2025 (Approximate), Expires: 03/11/2027documented as of this encounter Visit Diagnoses Diagnosis Acute combined systolic and diastolic heart failure (CMS/HCC)- Primary Acute combined systolic and diastolic heart failure Complete AV block (CMS/HCC) Atrioventricular block, complete documented in this encounter Care Teams Team MemberRelationshipSpecialtyStart DateEnd Date Seven Franco DO [address] [facility] PCP - General01/15/22documented as of this encounter
--- OUTSIDE RECORDS SUMMARY | 2025-03-20 15:48 | XMS_ITS | Encounter Summary ---
Author Organization [facility] Address [address] [place] [address] Care Team Providers Care Information Developer Name Role Phone Seven Franco DO Primary Care Provider [phone] Encounter Details DateTypeDepartmentCare Team (Latest Contact Info)Awfmunlrcsz24/01/2025Orders Only [facility] Cardiology Clinic [address] [place] [address] John Ely MD [address] [place] [address] Social History Tobacco UseTypesPacks/DayYears UsedDateSmoking Tobacco: NeverAlcohol UseStandard Drinks/WeekCommentsNot Currently0 (1 standard drink = 0.6 oz pure alcohol)[place] Safety & EnvironmentAnswerDate RecordedFear of Current or Ex-PartnerNot on file 06/29/2023Emotionally AbusedNot on file06/29/2023hysically AbusedNot on file 06/29/2023Sexually AbusedNot on file06/29/2023hysically or Sexually AbusedNot on file06/29/2023CommentsUnknownSex and Gender InformationValueDate RecordedSex Assigned at ZwqkjOwkvig12/11/2025 8:59 PM EDTLegal SexFemale 11/04/2021 12:35 AM EDTGender IjkxalcvRnkbzm45/11/2025 8:59 PM EDTSexual OrientationDon't know12/16/2024 8:59 PM EDTdocumented as of this encounter Functional Status * BPAnswerDate of IqexwaohixElacmg841/6003/11/2025 11:13 AM Marta Gonzalez MA * PulseAnswerDate of SpfeozukymJajura3625/04/2025 11:13 AM Marta Gonzalez MA * Patient PositionAnswerDate of UljxarsprhZsdwmdOkydfwq23/04/2025 11:13 AM Marta Figueroa MA * BPAnswerDate of ZdersjihqxMlujdr852/6003/11/2025 11:13 AM Marta Gonzalez MA * PulseAnswerDate of VdqcntdgpjGsmiek4261/04/2025 11:13 AM Marta Gonzalez MA * NoT9KeipkzXxen of NilabenherBxrvux9215/04/2025 11:13 AM Marta Gonzalez MA * BP LocationAnswerDate of AssessmentAuthorLeft arm03/11/2025 11:13 AM Marta Figueroa MA * Patient PositionAnswerDate of PijrlsdeebXsuroiHbaxedn48/04/2025 11:13 AM Marta Figueroa MA documented as of this encounter Plan of Treatment Not on file documented as of this encounter Procedures Procedure NamePriorityDate/TimeAssociated DiagnosisCommentsCARDIAC DEVICE CHECK - REMOTE - WGOMELMXJXcogwzt25/01/2025 12:00 AM EDTdocumented in this encounter Results * Cardiac device check - Remote pacemaker (03/08/2025 12:00 AM EDT)Anatomical RegionLateralityModalityOtherSpecimen (Source)Anatomical Location / Laterality Collection Method / VolumeCollection TimeReceived Time03/08/2025 Narrative Authorizing ProviderResult TypeResult StatusSalizeth Ely [facility] IMPLANTABLE CARDIAC DEVICE PROCEDURESFinal Result documented in this encounter Visit Diagnoses Not on filedocumented in this encounter Care Teams Team MemberRelationshipSpecialtyStart DateEnd Date Seven Franco DO [address] [facility] PCP - [facility]01/15/22documented as of this encounter
--- OUTSIDE RECORDS SUMMARY | 2025-03-20 15:48 | XMS_ITS | Clinical Summary ---
Author Organization [employer] tem Address [facility] [place]-[id number] [address] [place] [address] Care Team Providers Care Subacute Nurse Name Role Phone Joan Seven Jailene EDWARDS Primary Care Provider [phone] Allergies Active AllergyReactionsCriticalityNoted EkfwCyzmrnidQfett72/12/2022 Other Reaction(s): Unknown PenicillinsRash,LcnrqmwlgyxGnpp05/05/6185Wxglgyno35/12/2022 Medications MedicationSigDispense QuantityRefillsLast FilledStart DateEnd DateStatus cyanocobalamin, vitamin B-12, (VITAMIN B-12 ORAL) Take 1 tablet by mouth in the morning.Active pyridoxine HCl, vitamin B6, (VITAMIN B-6 ORAL) Take 1 tablet by mouth in the morning.Active cholecalciferol, vitamin D3, (VITAMIN D3 ORAL) Take 1 capsule by mouth in the morning.Active aspirin 81 mg Active magnesium oxide (MAGOX) 400 mg tablet Take 1 tablet (400 mg total) by mouth in the morning and 1 tablet (400 mg total) before bedtime. 180 tablet ctive fluticasone propionate (FLONASE) 50 mcg/actuation nasal spray Administer 2 sprays into each nostril in the morning.Active omeprazole (PriLOSEC) 20 mg capsule Take 1 capsule (20 mg total) by mouth daily as needed (heartburn).02/07/2024 Active famotidine (PEPCID) 10 mg tablet Take 1 tablet (10 mg total) by mouth in the morning and 1 tablet (10 mg total) before bedtime. 180 tablet 5Active atorvastatin (LIPITOR) 80 mg tablet Take 1 tablet (80 mg total) by mouth every morning. 90 tablet 5Active metoprolol succinate XL (TOPROL XL) 50 mg 24 hr tablet Take 1 tablet (50 mg total) by mouth every morning. 90 tablet 5Active liothyronine (CYTOMEL) 5 MCG tablet TAKE 1 TABLET BY MOUTH EVERY MORNING 90 tablet 5Active meclizine (ANTIVERT) 12.5 mg tablet Take 1 tablet (12.5 mg total) by mouth 3 (three) times a day as needed for dizziness. 90 tablet 5Active amLODIPine (NORVASC) 10 mg tablet Indications:Primary hypertensionTAKE 1 TABLET BY MOUTH IN THE MORNING 100 tablet 5Active furosemide (LASIX) 40 mg tablet TAKE 1 TABLET BY MOUTH DAILY 100 tablet 5Active potassium chloride (KLOR-CON M 20) 20 MEQ CR tablet TAKE 1 TABLET BY MOUTH EVERY MORNING 100 tablet 5Active alendronate (FOSAMAX) 35 mg tablet Take 1 tablet (35 mg total) by mouth every 7 days. In a.m. with water on empty stomach, nothing else by mouth and remain upright for 30min 12 tablet 5Active levothyroxine (SYNTHROID, LEVOTHROID) 75 MCG tablet TAKE 1 TABLET BY MOUTH IN THE MORNING 90 tablet 5Active zolpidem (AMBIEN) 10 mg tablet Indications:Other insomniaTake 1 tablet (10 mg total) by mouth nightly as needed for sleep. 30 tablet 5Active traZODone (DESYREL) 50 mg tablet TAKE 1 TABLET BY MOUTH NIGHTLY 90 tablet 5Active Active Problems ProblemNoted DateDiagnosed DateChronic diastolic heart mfticwx3205/10/2024 Bilateral carotid artery svsevtij06/05/2024 Assessment & Plan (2024 11:18 AM EST): Continue aspirin and statin. Surveillance imaging in a year. Wyzuzfrvf96/29/2731Nqtovhpqbfv98/02/2024Left knee pain02/09/2023Overweight 01/30/20232074Mehetpxl39/22/2023ost-nasal bavroehn83/22/2023Arthritis of left knee 2Artificial knee joint txyvgdl3101/17/2022History of third degree heart block6966Wbwbvrv20/06/2022Degeneration, intervertebral disc, lumbar 2Diverticular ynwqxzg3101/11/2022Gastroesophageal reflux disease 01/11/2022Impaired glucose /06/2022Obstructive sleep apnea syndrome 2Persistent efsqwejs69/06/3678Qjdm28/04/2022Coronary artery disease 2Renovascular bvqavzyxzeqh19/07/2022Benign hypertension with stage 3a chronic kidney ohbldgt7907/12/2021Essential vjmisexqwhqh57/25/2021 Brpjjgokxmrghkcuwbhb40/25/8761Awjaglmbimeerf63/25/2021losed wedge fracture of thoracic ofsrtnys20/25/2020Hearing loss10/15/20190202Utasmmawfwdwum32/07/2020Primary osteoarthritis of left knee02/14/20190011Ewetvszudp43/16/2018Basal cell carcinoma of skin06/22/20175608Nxdvpgztchy46/30/2016 Resolved Problems ProblemNoted DateDiagnosed DateResolved DateComplete AV block04/26/2023 04/26/20232920Eqtqjpf14/06/202203/Stage 3 chronic kidney pdzwbmq1805/19/2016 01/17/2022 Encounters DateTypeDepartmentCare RxwsIozkuvgzahe55/21/2025Results Follow-Up [facility] [address] [place] [address] Seven Franco, Hemoglobin A1c, Thyroid profile includes TSH FT4, Lipid profile, Comprehensive metabolic panel02/24/2025 11:00 AM EDTOffice Visit [facility] [address] [place] [address] Seven Franco, Primary hypertension (Primary Dx); Acquired hypothyroidism; Prediabetes; Hypercholesterolemia; Persistent insomnia; Post-nasal drainage; Gsfmhetmia99/20/0673Cwmblu63/05/2025Refill [facility] [address] [place] [address] Seven Franco DO 01/23/2025Refill [facility] [address] [place] [address] Hollie Sow, [employer]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 Other yyxhsxyt47/16/2025Refill [facility] [address] [place] [address] Seven Franco, from Last 3 Months Immunizations ImmunizationAdministration DatesNext DueCOVID-19, mRNA, LNP-S, PF, 100mcg/0.5mL Dose07/01/2020,06/03/2020Influenza High Dose Preservative Free IM01/24/2024, 02/20/2023,01/27/2019,01/29/2016,01/30/2015Influenza LAIV (Nasal)02/04/2022 Influenza, High-dose, Ymxfcvgmagzq14/30/2022,01/12/2021,01/10/2020Influenza, Im Trivalent Pmuoejnfaeys70/29/2018Influenza, Injectable, Tnjizzfuvgxt02/04/2020 Influenza, Trivalent, Mvlarwhvmn45/23/2017Pneumococcal Conjugate 13-Valent 03/25/2014Pneumococcal Fjuwoghpdzbhlu19/30/2008RSV, recombinant, protein subunit RSVpreF, adjuvant reconstituted, 0.5 mL, PF01/24/2024Tdap08/05/2014Zoster Live 01/29/2016Zoster Vaccine Ontbkvtioao39/19/2022,12/28/2020,12/18/2020 Family History Medical HistoryRelationNameCommentsCoronary artery diseaseFatherEmphysemaFather HyperlipidemiaHalf SisterHypertensionHalf SisterTuberculosisMaternal Grandmother Alzheimer's diseaseMotherdied at age 89DiabetesMotherHypertensionMotherStroke Paternal GrandfatherColon cancerPaternal GrandmotherAlzheimer's diseaseSister 1 RosieDiabetesSister 1RosieHeart diseaseSister 1RosieHyperlipidemiaSister 1Rosie born in 1937Lung cancerSister 2smokerRelationNameStatusCommentsDaughterAlive FatherDeceasedHalf SisterMaternal GrandfatherDeceasedMaternal GrandmotherMother DeceasedPaternal GrandfatherPaternal GrandmotherSister 1RosieAliveSister 2 DeceasedSon 1AliveSon 2AliveSon 3AliveSon 4Alive Social History Tobacco UseTypesPacks/DayYears UsedDateSmoking Tobacco: FormerCigarettes0.32 Smokeless Tobacco: Never Tobacco Cessation:Counseling Given: Not Answered Alcohol UseStandard Drinks/WeekCommentsNo0 (1 standard drink = 0.6 oz pure alcohol)[facility] UtilitiesAnswerDate RecordedIn the past 12 months has the [employer], gas, oil, or water [employer] threatened to shut off services in your home?No 07/25/2023Social Connection and Isolation PanelAnswerDate RecordedIn a typical week, how many times do you talk on the phone with family, friends, or neighbors?More than three times a week08/01/2024How often do you get together with friends or relatives?More than three times a week08/01/2024How often do you attend yazidi or zoroastrianism services?More than 4 times per year08/01/2024Do you belong to any clubs or organizations such as yazidi groups, unions, fraternal or athletic groups, or school groups?No08/01/2024How often do you attend meetings of the clubs or organizations you belong to?Never08/01/2024re you , , , , never , or living with a partner? 08/01/2024UDIT-CAnswerDate RecordedQ1: How often do you have a drink containing alcohol?Never07/21/2022Q2: How many drinks containing alcohol do you have on a typical day when you are drinking?Patient does not drink07/21/2022Q3: How often do you have six or more drinks on one occasion?Never07/21/2022Overall Financial Resource Strain (CARDIA)AnswerDate RecordedHow hard is it for you to pay for the very basics like food, housing, medical care, and heating?Not hard at all 07/21/2022HQ-2AnswerDate RecordedTotal Hweix615Finse[facility] [place] [facility] Occup[facility] - Occupational Stress QuestionnaireAnswerDate RecordedDo you feel stress - tense, restless, nervous, or anxious, or unable to sleep at night because yourmind is troubled all the time - these days?Not at all07/21/2022 Exercise Vital SignAnswerDate RecordedOn average, how many days per week do you engage in moderate to strenuous exercise (like a brisk walk)?0 days08/01/2024On average, how many minutes do you engage in exercise at this level?0 min 08/01/2024PRAPARE - TransportationAnswerDate RecordedIn the past 12 months, has lack of transportation kept you from medical appointments or from getting medications?No07/21/2022In the past 12 months, has lack of transportation kept you from meetings, work, or from getting things needed for daily living?No 07/21/2022Housing InstabilityAnswerDate RecordedAre you worried or concerned that in the next two months you may not have stable housing that you own, rent or stay in as a part of a household?No07/21/2022hildcareAnswerDate RecordedDo problems getting early childhood services coordinator make it difficult for you to work or study?No 07/21/2022EmploymentAnswerDate RecordedDo you need help finding a local career center and/or a training program?No07/21/2022Hunger ScreeningAnswerDate Recorded Within the past 12 months we worried whether our food would run out before we got money to buy more.Never True02/24/2025Within the past 12 months the food we bought just didn't last and we didn't have money to get more.Never True 02/24/2025Purpose - LifeAnswerDate RecordedI have a purpose and direction in my life.Strongly Agree07/21/2022CommentsUnknownSex and Gender Information ValueDate RecordedSex Assigned at BirthNot on fileLegal MrbXynidb07/06/2015 11:32 AM EDTGender IdentityNot on fileSexual OrientationNot on file Last Filed Vital Signs Vital SignReadingTime TakenCommentsBlood Trncgmhs354/5810/ 10:56 AM EDT Nlpsl062102/24/2025 10:56 AM XBLLmwtpokidwr48.4 ??C (97.5 ??F)02/24/2025 10:56 AM EDTRespiratory Qgje8164 10:56 AM EDTOxygen Vauuzphepz38%02/24/2025 10:56 AM EDTInhaled Oxygen Concentration--Vmmzpk83 kg (130 lb)02/24/2025 10:56 AM EDT Ykdlcb784.9 cm (4' 11.02 )02/24/2025 10:56 AM EDTBody Mass Index26.241 10:56 AM EDT Plan of Treatment DateTypeDepartmentCare Team (Latest Contact Info)Wvhhqpnzeet56/20/2026 2:15 PM ESTOffice Visit [facility] [address] [place] [address] Seven Franco, DO [address], [facility] [place] [address] 08/05/2025 10:40 AM EDTOffice Visit [facility] [address] [place] [address] Health MaintenanceDue DateLast DoneCommentsCOVID-19 Vaccine (10 - Moderna risk season)/02/2025, 08/20/2024, 01/24/2024, Additional history existsMedicare Annual Wellness Visit, 07/25/2023, 07/21/2022 Depression Adtinrmcr02Fall Risk Iawfdopqu37 Tobacco Kcqxmatnf36DTaP,Tdap and Td Vaccines (3 - Td or Tdap) 5008/20/2024, 08/05/2014Zoster (Shingles) GqzfulqMegexnmwj08/19/2022, 12/28/2020, 12/18/2020, Additional history existsRSV ( or age 60+ yrs) Iksrqijzq23/18/2024Influenza AupgpwzIokvpipph77/10/2025, 01/24/2024, 02/20/2023, Additional history exists Medical Devices Not on file Procedures Procedure NamePriorityDate/TimeAssociated DiagnosisCommentsCOMPREHENSIVE METABOLIC OYXZHJkdgpeb63/20/2025 11:31 AM EDT Primary hypertension LIPID RYULQBROiwlrxx37/20/2025 11:31 AM EDT Hypercholesterolemia THYROID PROFILE INCLUDES TSH CW7Ahzzznp20/20/2025 11:31 AM EDT Acquired hypothyroidism HEMOGLOBIN W6MRvbashd24/20/2025 11:31 AM EDT Prediabetes from Last 3 Months Results * (ABNORMAL) Thyroid profile includes TSH FT4 (02/24/2025 11:31 AM EDT)Component ValueRef RangeTest MethodAnalysis TimePerformed AtPathologist SignatureFREE T4 3.61(H)0.61 - 1.60 ng/dL02/24/2025 7:24 PM [facility] LABORATORYTSH2.040.49 - 4.67 uIU/mL02/24/2025 7:24 PM [facility] LABORATORYSpecimen (Source)Anatomical Location / LateralityCollection Method / VolumeCollection TimeReceived TimeBloodVenous blood / Unknown 02/24/2025 11:31 AM EDT1 11:31 AM EDT Narrative Authorizing ProviderResult TypeResult StatusDennis G Furlong DOLAB BLOOD ORDERABLESFinal ResultPerforming OrganizationAddressCity/State/ZIP CodePhone Number [facility] [address] [place] [address], * (ABNORMAL) Hemoglobin A1c (02/24/2025 11:31 AM EDT)ComponentValueRef RangeTest MethodAnalysis TimePerformed AtPathologist SignatureHEMOGLOBIN A1C5.7(H)4.4 - 5.6 %02/24/2025 7:20 PM [facility] LABORATORYComment: ?ADA Guidelines ?Result ?HgbA1c ? Normal : ? less than 5.7 % ? Prediabetes : ?5.7 % ??to 6.4 % Diabetes : > 6.4 % ?Use with caution in patients with abnormal hemoglobin variants as ??the half-life of red blood cells and in vivo glycation rates are ??affected. EST. AVERAGE ONQDJKT575bc/dL02/24/2025 7:20 PM [facility] LABORATORYSpecimen (Source)Anatomical Location / LateralityCollection Method / VolumeCollection TimeReceived TimeBloodVenous blood / Iholdit9202/24/2025 11:31 AM EDT1 11:31 AM EDT Narrative Authorizing ProviderResult TypeResult StatusDennis G Furlong DOLAB BLOOD ORDERABLESFinal ResultPerforming OrganizationAddressCity/State/ZIP CodePhone Number [facility] [address] [place] [address], * (ABNORMAL) Lipid profile (02/24/2025 11:31 AM EDT)ComponentValueRef RangeTest MethodAnalysis TimePerformed AtPathologist PpinxunpmJWNQVUOBCVS446(L)150 - 200 mg/dL02/24/2025 7:14 PM [facility] RCNCOCQFHQLCZNKVQQKSFM2870 - 150 mg/dL02/24/2025 7:14 PM [facility] LABORATORYHDL YALYYGWPIIC40>39 mg/dL02/24/2025 7:14 PM [facility] LABORATORYComment: HDL <40 mg/dL - High Risk HDL > or = 40mg/dL- Desirable HDL >60 mg/dL - Negative Risk LDL (CALC)45<130 mg/dL02/24/2025 7:14 PM [facility] Comment: LDL <100 mg/dL - Desirable LDL >160 mg/dL - High Risk CHOLESTEROL:HDL2.01.0 - 5.010 7:14 PM [facility] LABORATORYVERY LOW CSCISGYIGIV907 - 30 mg/dL02/24/2025 7:14 PM [facility] LABORATORYSpecimen (Source)Anatomical Location / Laterality Collection Method / VolumeCollection TimeReceived TimeBloodVenous blood / Mrffwfu8602/24/2025 11:31 AM EDT1 11:31 AM EDT Narrative Authorizing ProviderResult TypeResult StatusDennis G Furlong DOLAB BLOOD ORDERABLESFinal ResultPerforming OrganizationAddressCity/State/ZIP CodePhone Number [facility] [address] [place] [address], * (ABNORMAL) Comprehensive metabolic panel (02/24/2025 11:31 AM EDT)Component ValueRef RangeTest MethodAnalysis TimePerformed AtPathologist SignatureSODIUM 619446 - 146 mmol/L1 7:14 PM [facility] POTASSIUM3.93.5 - 5.0 mmol/L1 7:14 PM [facility] HQRMWWXYOJQBDIRZZD84978 - 109 mmol/L1 7:14 PM [facility] LABORATORYCARBON DFKBUOA8134 - 32 mmol/L1 7:14 PM [facility] LABORATORYANION QYV735 - 15 mmol/L1 7:14 PM EDT [facility]ORATORYBLOOD UREA ULPPACSZ023 - 27 mg/dL02/24/2025 7:14 PM [facility] LABORATORYCREATININE0.990.40 - 1.00 mg/dL 02/24/2025 7:14 PM [facility] LABORATORYComment:METHOD TRACEABLE TO IDMS FKGSQMESULCSNYO914(H)65 - 99 mg/dL02/24/2025 7:14 PM EDT [facility] LABORATORYCALCIUM9.88.5 - 10.5 mg/dL02/24/2025 7:14 PM [facility] LABORATORYTOTAL PROTEIN7.66.0 - 8.0 g/dL 02/24/2025 7:14 PM [facility] LABORATORYALBUMIN4.43.2 - 5.3 g/dL02/24/2025 7:14 PM [facility] LABORATORYALKALINE OUQDOFYYJDS8234 - 130 U/L1 7:14 PM [facility] UZQHCZOMJJNKL60<=41 U/L1 7:14 PM [facility] CWNHBQFOLREHU15<=31 U/L1 7:14 PM [facility] LABORATORYBILIRUBIN,TOTAL0.80.3 - 1.2 mg/dL02/24/2025 7:14 PM [facility] LABORATORYEGFR Non-Race Ojlnpttnb45(L)>=60 ml/min/1.73sq.m 02/24/2025 7:14 PM [facility] LABORATORYComment: Reported eGFR is based on the CKD-EPI 2020 equation that does not use a race coefficient. Specimen (Source)Anatomical Location / LateralityCollection Method / Volume Collection TimeReceived TimeBloodVenous blood / Smobvxj7302/24/2025 11:31 AM EDT 02/24/2025 11:31 AM EDT Narrative Authorizing ProviderResult TypeResult StatusDennis G Furlong DOLAB BLOOD ORDERABLESFinal ResultPerforming OrganizationAddressCity/State/ZIP CodePhone Number [facility] [address] [place] [address], from Last 3 Months Insurance Care Teams Team MemberRelationshipSpecialtyStart DateEnd Date Seven Franco DO [address] [facility] [place] [address] PCP - GeneralFamily Tlxhthjr46/13/20
--- OUTSIDE RECORDS SUMMARY | 2025-03-20 15:48 | XMS_ITS | Clinical Summary ---
Author Organization [facility] Address [address] [place] [address] Care Team Providers Care Rand Maker Name Role Phone Seven Franco DO Primary Care Provider [phone] Allergies Active AllergyReactionsCriticalityNoted UcvvLrxpvwfnMrdldxuz58/12/2022ther Ileczmf7801/17/2022 Other Reaction(s): Unknown FcfwvjwmcqjDmusmazyczvKyzm08/10/2022 Medications MedicationSigDispense QuantityRefillsLast FilledStart DateEnd DateStatus aspirin 81 mg EC tablet Take 1 tablet by mouth in the morning.Active atorvastatin (Lipitor) 80 mg tablet Take 1 tablet by mouth at bedtime.Active liothyronine (Cytomel) 5 mcg tablet Take 1 tablet every day by oral route for 90 days.Active potassium chloride CR (Klor-Con M20) 20 mEq ER tablet Take 1 tablet every day by oral route for 90 days.Active levothyroxine (Synthroid, Levoxyl) 75 mcg tablet Take 1 tablet every day by oral route for 90 days.Active metoprolol succinate XL (Toprol-XL) 50 mg 24 hr tablet Take 1 tablet by mouth in the morning.Active zolpidem (Ambien) 10 mg tablet Take 1 tablet by mouth at bedtime.Active traZODone (Desyrel) 50 mg tablet Take 1 tablet by mouth in the morning.Active furosemide (Lasix) 40 mg tablet Indications:Chronic diastolic heart failure (CMS/HCC)Take 1 tablet (40 mg) by mouth once daily as directed. 90 tablet ctive magnesium oxide (Mag-Ox) 400 mg (241.3 mg magnesium) tablet Take 1 tablet by mouth in the morning.12/28/2021ctive amLODIPine (Norvasc) 10 mg tablet Take 10 mg by mouth in the morning.07/25/2022ctive cyanocobalamin (Vitamin B-12) 100 mcg tablet as directed OrallyActive omeprazole (PriLOSEC) [address] capsule Take 20 mg by mouth every other day.Active cholecalciferol (Vitamin D-3) 25 MCG (1000 units) tablet 1 tablet Orally Every other dayActive meclizine (Antivert) 25 mg tablet Take 12.5 mg by mouth if needed in the morning, at noon, and at bedtime for dizziness.Active Active Problems ProblemNoted DateDiagnosed DateChronic diastolic heart kraqbea9705/10/2024 Bilateral carotid artery rblyglls53/05/6595Yjqgekpyu02/29/2024rediabetes 08/08/2023Left knee painOverweight Aoxxsqvc29ost-nasal enjoefdo86rtificial knee joint qfifljh18History of third degree heart block rthritis of left kneeoronary artery rjignul1101/15/20227277Fvztvpx80egeneration, intervertebral disc, koajxf54iverticular nxxaxsa33 Gastroesophageal reflux owuesue49Impaired glucose tolerance Obstructive sleep apnea urcfmxjl29 Persistent yejucqlh04Mass Overview (03/03/2023): Mini thoracotomy incision Benign hypertension with stage 3a chronic kidney nnevzzw82 Renovascular awjsojsskmld378204Msjyeegprlarqjjbvgyu37/25/2021 Hypertensive vposbecp48/25/2430Ldtyxjgsgfxhng19/25/2021losed wedge fracture of thoracic npwcnbme19Hearing loss Gydyikhyfmbwvx22Osteopeniaasal cell carcinoma of skinHypokalemiaomplete AV block Encounters DateTypeDepartmentCare TfaaPgqbedssmdu08/04/2025 11:30 AM ESTOffice Visit [facility] [address] [place] [address] Stevo Lopez MD Acute combined systolic and diastolic heart failure (CMS/HCC) (Primary Dx); Complete AV block (CMS/HCC)03/11/2025 10:45 AM ESTAncillary Procedure [facility] [address] [place] [address] Encounter for implantable defibrillator reprogramming or check03/10/2025 12:40 PM ESTAncillary Procedure [facility] [address] [place] [phone] Adjustment and management of cardiac bxfaxlxlj57/01/2025Orders Only [facility] [address] [place] [address] John Ely MD from Last 3 Months Family History Medical HistoryRelationNameCommentsDiabetesSisterRelationNameStatusComments FatherDeceasedMotherDeceasedSister Social History Tobacco UseTypesPacks/DayYears UsedDateSmoking Tobacco: Never Tobacco Cessation:Counseling Given: Not Answered Alcohol UseStandard Drinks/WeekCommentsNot Currently0 (1 standard drink = 0.6 oz pure alcohol)UT Safety & EnvironmentAnswerDate RecordedFear of Current or Ex-PartnerNot on file06/29/2023Emotionally AbusedNot on file06/29/2023hysically AbusedNot on file06/29/2023Sexually AbusedNot on file4Physically or Sexually AbusedNot on file06/29/2023CommentsUnknownSex and Gender InformationValueDate RecordedSex Assigned at EevdaMdscjk11/11/2025 8:59 PM EDT Legal MpzEnrlfa08/30/2022 12:35 AM EDTGender NubgwpvhYukmga61/11/2025 8:59 PM EDTSexual OrientationDon't know12/16/2024 8:59 PM EDT Last Filed Vital Signs Vital SignReadingTime TakenCommentsBlood Onrqgkiu414/6003/11/2025 11:13 AM EST Qvnqc713003/11/2025 11:13 AM INUFocugmxquvw27.2 ??C (99 ??F)11/16/2021 3:28 PM EDT Respiratory Xowc9729 1:12 PM EDTOxygen Kulozwcvzj54%03/11/2025 11:13 AM ESTInhaled Oxygen Concentration--Amjjwa34.4 kg (131 lb)03/11/2025 11:13 AM EST Roqnie311.4 cm (5')03/11/2025 11:13 AM ESTBody Mass Index25.5803/11/2025 11:13 AM EST Plan of Treatment Health MaintenanceDue DateLast DoneCommentsMedicare Annual Wellness (AWV) 1935Depression Skfzpqizp41[birth year]05/1947Fall Risk Lhgojhwmd58/05/2002Diabetes: Hemoglobin A1C/2COVID-19 Vaccine ( season) , 08/20/2024, 01/24/2024, Additional history existsAdult Grpamrt39, 08/05/2014Pneumococcal Vaccine: 50+ YearsCompleted 03/25/2014, 03/06/2008Zoster CbmkeclbRtharrchp32/19/2022, 12/28/2020, 12/18/2020, Additional history existsInfluenza IrqytfuGwsbfgfuu37/10/2025, 01/24/2024, 02/20/2023, Additional history existsHIB VaccinesAged OutNo longer eligible based on patient's age to complete this topicHPV VaccinesAged OutNo longer eligible based on patient's age to complete this topicIPV VaccinesAged OutNo longer eligible based on patient's age to complete this topicMeningococcal B VaccineAged OutNo longer eligible based on patient's age to complete this topicMeningococcal VaccineAged OutNo longer eligible based on patient's age to complete this topicRotavirus VaccinesAged OutNo longer eligible based on patient's age to complete this topic Procedures Procedure NamePriorityDate/TimeAssociated DiagnosisCommentsCARDIAC DEVICE CHECK - IN CLINIC - PACEMAKER DUAL CHAMBER W/ ERZAOalbfjf22/07/2025 10:56 AM EST Encounter for implantable defibrillator reprogramming or check CARDIAC DEVICE CHECK CHECK - XAUKUVSleqrlp21/05/2025 5:11 PM EST Adjustment and management of cardiac pacemaker CARDIAC DEVICE CHECK - REMOTE - EJXGSHMQQXbnrdyr80/01/2025 12:00 AM EDT HEMOGLOBIN V7DIvbptnw30/22/2022 11:49 AM EDT from Last 3 Months or Most Recently Relevant to Health Maintenance Results * CARDIAC DEVICE CHECK - IN CLINIC - PACEMAKER DUAL CHAMBER W/ PROG (03/14/2025 10:56 AM EST)ComponentValueRef RangeTest MethodAnalysis TimePerformed At Pathologist SignatureBSA1.59m2GE PACS CARDIOAnatomical RegionLaterality ModalityOtherSpecimen (Source)Anatomical Location / LateralityCollection Method / VolumeCollection TimeReceived Time Narrative 03/19/2025 3:33 PM EST Normal device function Authorizing ProviderResult TypeResult StatusPaul John MDCV IMPLANTABLE CARDIAC DEVICE PROCEDURESFinal Result * CARDIAC DEVICE CHECK - REMOTE - PACEMAKER (03/12/2025 5:11 PM EST)Component ValueRef RangeTest MethodAnalysis TimePerformed AtPathologist SignatureBSA1.59 c7WZWIMOcxdlfow (Source)Anatomical Location / LateralityCollection Method / VolumeCollection TimeReceived Time Narrative Authorizing ProviderResult TypeResult StatusBlair Antione MDCV IMPLANTABLE CARDIAC DEVICE PROCEDURESFinal ResultPerforming OrganizationAddressCity/State/ZIP Code Phone Number CPACS * Cardiac device check - Remote pacemaker (03/08/2025 12:00 AM EDT)Anatomical RegionLateralityModalityOtherSpecimen (Source)Anatomical Location / Laterality Collection Method / VolumeCollection TimeReceived Time03/08/2025 Narrative Authorizing ProviderResult TypeResult StatusJohn Kaleigh Ely [facility] IMPLANTABLE CARDIAC DEVICE PROCEDURESFinal Result * Hemoglobin A1c (11/26/2021 11:49 AM EDT)ComponentValueRef RangeTest Method Analysis TimePerformed AtPathologist SignatureHemoglobin A1C6.04.0 - 6.0 %LAB CONVERSIONSEstimated Average Lehcelt403bctf/LLAB CONVERSIONSSpecimen (Source) Anatomical Location / LateralityCollection Method / VolumeCollection Time Received Time11/26/2021 11:49 AM EDT11/26/2021 11:49 AM EDT Narrative Authorizing ProviderResult TypeResult StatusStevo CALDERA BLOOD ORDERABLES Final ResultPerforming OrganizationAddressCity/State/ZIP CodePhone Number LAB CONVERSIONS from Last 3 Months or Most Recently Relevant to Health Maintenance Insurance Care Teams Team MemberRelationshipSpecialtyStart DateEnd Date Seven Franco DO [address] [facility] PCP - [facility]01/15/22
--- OUTSIDE RECORDS SUMMARY | 2025-03-20 15:48 | XMS_ITS | Clinical Summary ---
Author Organization [facility] Address [address] [place] [address] Care Team Providers Care Quality Head Name Role Phone Seven Franco MD Primary Care Provider [phone] Allergies Active AllergyReactionsCriticalityNoted TefjXwzswwntTqkgo00/07/2023 Other Reaction(s): Unknown AllbgcbqyqpKsxx06/07/2023 Other Reaction(s): facial swelling Wound Dressing Qukbuytl23/12/2022 Medications MedicationSigDispense QuantityRefillsLast FilledStart DateEnd DateStatus acetaminophen (Tylenol) 500 MG tablet Take 1,000 mg by mouth every 8 (eight) hours if needed.Active amLODIPine (Norvasc) 10 MG tablet Take 10 mg by mouth in the morning.07/25/2022ctive aspirin 81 MG EC tablet Take 1 tablet by mouth in the morning.Active atorvastatin (Lipitor) 80 MG tablet Take 1 tablet by mouth at bedtime.07/23/2022ctive cholecalciferol (Vitamin D3) 25 MCG (1000 UT) tablet 1 tablet Orally Every other dayActive cyanocobalamin (Vitamin B-12) 100 MCG tablet as directed OrallyActive furosemide (Lasix) 40 MG tablet Take 1 tablet by mouth in the morning.05/12/2022ctive diclofenac sodium 1 % gel Apply 2 g topically in the morning and 2 g at noon and 2 g in the evening and 2 g before bedtime.11/16/2022ctive Synthroid 75 MCG tablet Take 1 tablet every day by oral route for 90 days.07/28/2022ctive liothyronine (Cytomel) 5 MCG tablet Take 1 tablet every day by oral route for 90 days.05/03/2022ctive omeprazole (PriLOSEC) [address] capsule Take 20 mg by mouth in the morning.Active potassium chloride (Klor-Con) 20 MEQ packet 1 (one) time each day at the same time.Active pyridoxine (B-6) 50 MG tablet 1 (one) time each day at the same time.Active traZODone (Desyrel) 50 MG tablet Take 1 tablet by mouth in the morning.Active zolpidem (Ambien) 10 MG tablet Take 1 tablet by mouth at bedtime.12/21/2022ctive levothyroxine (Synthroid, Levoxyl) 88 MCG tablet Take 88 mcg by mouth in the morning.02/02/2023ctive metoprolol succinate XL (Toprol-XL) 50 MG 24 hr tablet 04/03/2023ctive KLOR-CON 20 MEQ ER tablet 04/27/2023ctive Active Problems ProblemNoted DateDiagnosed DateLeft knee pain02/09/2023rimary osteoarthritis of left knee02/09/2023 Social History Tobacco UseTypesPacks/DayYears UsedDateSmoking Tobacco: NeverSmokeless Tobacco: Never Tobacco Cessation:Counseling Given: Not Answered Alcohol UseStandard Drinks/WeekCommentsNever0 (1 standard drink = 0.6 oz pure alcohol)CommentsUnknownSex and Gender InformationValueDate RecordedSex Assigned at BirthNot on fileLegal GfnLrkjku82/15/2023 10:12 PM EDTGender IdentityNot on fileSexual OrientationNot on file Last Filed Vital Signs Vital SignReadingTime TakenCommentsBlood Pressure--Pulse--Bawpgbakymt76.3 ??C (97.3 ??F)04/06/2023 9:41 AM ESTRespiratory Rate--Oxygen Saturation--Inhaled Oxygen Concentration--Xixwqp75.7 kg (125 lb)09/27/2023 10:20 AM UOCLzuiee180.4 cm (5')09/27/2023 10:20 AM EDTBody Mass Index24.41009/27/2023 10:20 AM EDT Plan of Treatment Not on file Insurance * Guarantor: Nela Madrigal TypeRelation to PatientDate of BirthPhone Billing AddressPersonal/GgaljiQymu1935 [address] [address] Care Teams Team MemberRelationshipSpecialtyStart DateEnd Date Seven Franco MD PCP - General01/05/23
--- OUTSIDE RECORDS SUMMARY | 2025-03-20 15:48 | XMS_ITS ---
Author Organization [employer] Address [id number] [address] [place] [address] Care Team Providers Care Tailing Hand Name Role Phone Seven Franco DO Primary Care Provider [phone] Active Problems ProblemNoted DateDiagnosed DateChronic diastolic heart zfxbjmh4205/10/2024 Bilateral carotid artery itpbubmi74/05/2024 Assessment & Plan (2024 11:18 AM EST): Continue aspirin and statin. Surveillance imaging in a year. Wklxcbmde70/29/9821Rywvgwlrhsd06/02/2024Left knee pain02/09/2023Overweight 01/30/20231054Gafcnoiv83/22/2023Post-nasal khfgoaal52/22/2023Arthritis of left knee 2Artificial knee joint ehqfemd5901/17/2022History of third degree heart block7039Ligqnqq26/06/2022Degeneration, intervertebral disc, lumbar 2Diverticular uzggjba7501/11/2022Gastroesophageal reflux disease 01/11/2022Impaired glucose rytpavsue79/06/2022Obstructive sleep apnea syndrome 2Persistent chbkouno29/06/2643Jcdt50/04/2022Coronary artery disease 2Renovascular nhebckyxjejy92/07/2022Benign hypertension with stage 3a chronic kidney aegcntz5207/12/2021Essential wfcejqcutqgx17/25/2021 Rpfyidquyhhskdcauqsp77/25/0927Xwvsloxqbmvmqn18/25/2021Closed wedge fracture of thoracic footlwel84/25/2020Hearing loss10/15/20194076Asuldqdczjtwrb28/07/2020Primary osteoarthritis of left knee02/14/20195935Jsfnxwnlux54/16/2018Basal cell carcinoma of skin06/22/20175249Fsphlowmhbx55/30/2016 Current Treatment and Therapy Plans No current plan information found. Past Treatment and Therapy Plans Resolved Problems ProblemNoted DateDiagnosed DateResolved DateComplete AV block04/26/2023 04/26/20238553Myfhjxl83Stage 3 chronic kidney awdyixt6705/19/2016 01/17/2022
--- NOTE | 2025-03-20 15:51 | CA_ITS ---
Patient Name: RAMY BENAVIDES MR#: [id number] : 1935 Exam Date: 03/20/2025 Ordering Doctor: DR CARMELITA MAYES M.D. ECHOCARDIOGRAM REPORT PROCEDURE: CA ECHO DOPPLER COMPLETE INDICATIONS: Acute combined systolic and diastolic CHF, complete AV block COMPARISON: None. DESCRIPTION: COMPLETE ECHOCARDIOGRAM Real-time transthoracic echocardiography with 2D, M-mode, spectral and color flow Doppler performed. QUALITY: Technical quality was good. LEFT VENTRICLE: Normal chamber size. Normal left ventricular wall thickness. Global left ventricular systolic function is normal. Estimated left ventricular ejection fraction is 55-60%. LV EF: Normal left ventricular ejection fraction, (>55%). DIASTOLIC: Normal diastolic function. ATRIAL SEPTUM: LEFT ATRIUM: Moderate dilatation. RIGHT ATRIUM: Mild chamber dilatation. Pacer wire present. RIGHT VENTRICLE: Mild chamber dilatation. Normal right ventricular systolic function. Pacer wire present. TRICUSPID VALVE: Normal mobility and thickness. No stenosis with mild to moderate regurgitation. No evidence of pulmonary hypertension. The RVSP is 29 mmHg. MITRAL VALVE: Normal mobility and thickness. No evidence of mitral valve stenosis. Mild mitral annular calcification. Mild to moderate mitral regurgitation. AORTIC VALVE: Mildly calcified aortic valve with mildly restricted leaflet mobility. Trivial aortic regurgitation. AORTIC ROOT: Normal diameter and appearance. The aortic root measures 3.4 cm. The ascending aorta is normal in size measuring 2.9 cm. PULMONIC VALVE: Normal thickness and mobility. No stenosis. No regurgitation. PERICARDIUM: No evidence of pericardial effusion. IVC: Collapses with inspiration. The IVC is normal in size at 1.8 cm. PLEURA: CONCLUSION: 1. Left ventricle is normal in size and exhibits normal systolic function. Estimated LVEF is 55 to 60%. 2. Mildly dilated right ventricle with normal systolic function. 3. Mild to moderate biatrial dilatation. 4. Normal diastolic function. 5. Mild to moderate mitral and tricuspid regurgitation. 6. Normal right-sided pressures. Adult Echocardiography Procedure Report Left Ventricle LVEDD (3.7 - 5.6 cm): 4.59 cm LVESD (2.2 - 4.0 cm): 2.68 cm LVIVS thickness (0.6 - 1.2 cm): 0.79 cm LVPW thickness (0.5 - 1.0 cm): 0.77 cm e': 0.10 m/s E - e': 6.19 LVOT Max Gradient: 2.17 mm[Hg] LVOT Area (cm2): 0.74 m/s Peak Velocity (LVOT): 0.74 m/s Mean Velocity (LVOT): 0.55 m/s LVOT Diameter 1.89 cm Left Ventricular Ejection Fraction: 55-60% Left Atrium LA Volume Index (2D A2C): 36.87 ml/m2 Left Atrium Systolic Dimension: 3.97 cm Mitral Valve MV E to A Ratio: 0.77 Mitral Valve A-Wave Peak Velocity: 0.77 m/s Mitral Valve E-Wave Peak Velocity: 0.59 m/s Right Ventricle RV Internal Diastolic Dimension: 2.89 cm Aorta AO Root Diam: 3.43 cm Ascending Ao Diam: 2.94 cm Aortic Valve AoV Area (Peak Lucho): 1.62 cm2, 1.62 cm2 AoV Area (VTI): 1.62 cm2, 1.62 cm2 Peak Velocity(Antegrade Flow): 1.28 m/s Peak Gradient(Antegrade Flow): 6.58 mm[Hg] Mean Velocity(Antegrade Flow): 0.79 m/s Mean Gradient(Antegrade Flow): 2.99 mm[Hg] Velocity Time Integral: 25.70 cm Tricuspid Valve Peak Velocity (Regurgitant Flow): 2.35 m/s, 2.38 m/s, 2.55 m/s Pulmonic Valve Mean Gradient: 1.47 mm[Hg], 1.45 mm[Hg] Mean Velocity: 0.58 m/s, 0.55 m/s Peak Velocity: 0.86 m/s Peak Gradient: 2.62 mm[Hg], 3.26 mm[Hg] Right Atrium Right Atrium Systolic Pressure: 35.91 ml, 35.91 ml Dictated by: Carmelita Mayes M.D. on 03/20/2025 at 19:22 Approved by: Carmelita Mayes M.D. on 03/20/2025 at 19:32
--- OUTSIDE RECORDS SUMMARY | 2025-03-20 15:52 | XMS_ITS | CCD ---
Author Organization [facility] Care Team Providers Care Lead Process Engineer Name Role Phone LEAH SAGE Admitting Unavailable ALONALEAH Chiu Attending Unavailable SELF, REFERRED Referring Unavailable SELF, REFERRED Primary Care Unavailable Masroor, Sindhu Admitting Unavailable Masroor, Sindhu Attending Unavailable VITOLOSEVEN TURNER Referring Unavailable FURLONGSEVEN Primary Care Unavailable JAY, GIO Admitting Unavailable UNKNOWN, PHYSICIAN Primary Care Unavailable MOOSE AGUILA Referring Unavailable LITTLE HILL Attending Unavailable Masroor, Sindhu Admitting Unavailable Masroor, Sindhu Attending Unavailable VITOLOSEVEN TURNER Referring Unavailable FURLONGSEVEN Primary Care Unavailable ALONA, [...] MASROOR, SINDHU Attending Unavailable FURLONG, DR SEVEN G Primary Care Unavailable MASROOR, SINDHU Admitting Unavailable POCOS, ABUNDIO Cha Attending Unavailable POCOS, ABUNDIO Cha Attending Unavailable POCOS, ABUNDIO Cha Attending Unavailable RUSHER, ERNESTINA Mccarthy Attending Unavailable RUSHER, ERNESTINA S Referring Unavailable Furlong DO, Seven G Primary Care Provider NICKIE HATHAWAY Referring Unavailable FURLONG, SEVEN G Primary Care Unavailable FURLONG, SEVEN G Referring Unavailable FURLONG, SEVEN G Primary Care Unavailable FURLONG, SEVEN G Referring Unavailable FURLONG, SEVEN G Primary Care Unavailable FURLONG, SEVEN G Referring Unavailable FURLONG, SEVEN G Primary Care Unavailable Furlong DO, Seven G Primary Care Provider Furlong DO, Seven G Primary Care Provider [phone] FURLONG, SEVEN G Attending Unavailable FURLONG, SEVEN G Referring Unavailable FURLONG, SEVEN G Primary Care Unavailable FURLONG, SEVEN G Attending Unavailable FURLONG, SEVEN G Referring Unavailable FURLONG, SEVEN G Primary Care Unavailable FURLONG, SEVEN G Referring Unavailable FURLONG, SEVEN G Primary Care Unavailable FURLONG, SEVEN G Attending Unavailable FURLONG, SEVEN G Referring Unavailable FURLONG, SEVEN G Primary Care Unavailable FURLONG, SEVEN G Attending Unavailable FURLONG, SEVEN G Referring Unavailable FURLONG, SEVEN G Primary Care Unavailable FURLONG, SEVEN G Attending Unavailable FURLONG, SEVEN G Referring Unavailable FURLONG, SEVEN G Primary Care Unavailable LEAH SAGE Referring Unavailable ALONALEAH Attending Unavailable HARLEEN LAZARO Attending Unavailable MINOR, LUIS FERNANDO Referring Unavailable ALONA, LEAH Referring Unavailable ALONA, LEAH Referring Unavailable MINOR, LUIS FERNANDO Referring Unavailable ALONA, LEAH Referring Unavailable HARLEEN LAZARO Attending Unavailable ALONALEAH Chiu Referring Unavailable Allergies Allergy ClassificationReported Allergen(s)Allergy TypeDate of OnsetReaction(s) Facility (8 sources)Penicillins; Translations: [PENICILLINS]Drug allergy (disorder) 55-96-2713Gybg, AnaphylaxisThe [facility] (20 sources)Adhesive agent; Translations: [ADHESIVE]Propensity to adverse reactions to zlrv26-21-9971BagTnligs[address] [place] [address] (20 sources)PenicillinsPropensity to adverse reactions to lnrk27-61-5047Zmvt, AnaphylaxisProKindred Hospital L[facility] System (20 sources)Other; Translations: [OTHER]Propensity to adverse reactions 68-14-7065ItxGughsr[address] [place] [address] Work Phone: (19 sources)PenicillinsPropensity to adverse reactions to adcx27-68-2518Zowa, AnaphylaxisProKindred Hospital Lima System (5 sources)Adhesive agentPropensity to adverse reactions to tokq15-39-6645 [facility] Medications Current Medications MedicationDrug Class(es)DatesSig (Normalized)Sig (Original)alendronic acid 35 mg oral tablet (5 sources)BisphosphonateStart: 95-92-2849nrtl 1 tablet by mouth in the morning alendronate (FOSAMAX) 35 mg tablet Take 1 tablet (35 mg total) by mouth every 7 days. In a.m. with water on empty stomach, nothing else by mouth and remain upright for 30min 12 tablet 3 11/29/2024 ActiveamLODIPine 10 mg oral tablet (20 sources)Dihydropyridine Calcium Channel BlockerStart: 02-13-2023 End: 42-97-8126zivq 1 tablet by mouth in the morningamLODIPine (NORVASC) 10 mg tablet Indications: Primary hypertension TAKE 1 TABLET BY MOUTH IN THE MORNING 100 tablet 2 11/13/2024 Activeaspirin 81 mg delayed release oral tablet (20 sources)Platelet Aggregation Inhibitor, Nonsteroidal Anti-inflammatory Drug aspirin 81 mg Activeatorvastatin 80 mg oral tablet (20 sources)HMG-CoA Reductase InhibitorStart: 08-15-2023 End: 88-60-6083sstl 1 tablet by mouth once daily in the morningatorvastatin (LIPITOR) 80 mg tablet Take 1 tablet (80 mg total) by mouth every morning. 90 tablet ActiveStart: 24-05-6773mceqsekdfldr (LIPITOR) 80 mg tablet TAKE 1 TABLET DAILY 90 tablet 3 07/23/2022 Activecholecalciferol, vitamin D3, (VITAMIN D3 ORAL) (20 sources)take 1 capsule by mouth in the morningcholecalciferol, vitamin D3, (VITAMIN D3 ORAL) Take 1 capsule by mouth in the morning. Activetake 1 capsule by mouth once dailycholecalciferol, vitamin D3, (VITAMIN D3 ORAL) Take 1 capsule by mouth daily. Activetake 1 capsule by mouth once dailycholecalciferol, vitamin D3, (VITAMIN D3 ORAL) Take 1 capsule by mouth daily. 0 Active cyanocobalamin, vitamin B-12, (VITAMIN B-12 ORAL) (20 sources)take 1 tablet by mouth in the morningcyanocobalamin, vitamin B-12, (VITAMIN B-12 ORAL) Take 1 tablet by mouth in the morning. Activetake 1 tablet by mouth in the morningcyanocobalamin, vitamin B-12, (VITAMIN B-12 ORAL) Take 1 tablet by mouth in the morning. 0 Activefamotidine 10 mg oral tablet (20 sources)Histamine-2 Receptor AntagonistStart: 10-02-2024 End: 91-21-0568rgum 1 tablet by mouth in the morning, then take 1 tablet by mouth at bedtimefamotidine (PEPCID) 10 mg tablet Take 1 tablet (10 mg total) by mouth in the morning and 1 tablet (10 mg total) before bedtime. 180 tablet 1 10/02/2024 Activefluticasone propionate 0.05 mg/actuat metered dose nasal spray (20 sources)Corticosteroidtake 2 spray(s) nasal route in the morningfluticasone propionate (FLONASE) 50 mcg/actuation nasal spray Administer 2 sprays into each nostrilin the morning. Activefurosemide 40 mg oral tablet (20 sources)Loop DiureticStart: 03-09-2023 End: 22-09-2901opsy 1 tablet by mouth once dailyfurosemide (LASIX) 40 mg tablet TAKE 1 TABLET BY MOUTH DAILY 100 tablet 2 11/13/2024 Activelevothyroxine sodium 0.075 mg oral tablet (20 sources)l-ThyroxineStart: 02-08-2024 End: 38-40-0171xrem 1 tablet by mouth in the morninglevothyroxine (SYNTHROID, LEVOTHROID) 75 MCG tablet TAKE 1 TABLET BY MOUTH IN THE MORNING 90 tablet 01/22/2025 ActiveStart: 02-02-2023 End: 06-19-6781wjxu 1 tablet by mouth in the morninglevothyroxine (SYNTHROID, LEVOTHROID) 88 MCG tablet Indications: Acquired hypothyroidism Take 1 tablet (88 mcg total) by mouth in the morning. 30 tablet 1 11/29/2023 Activeliothyronine sodium 0.005 mg oral tablet (20 sources)l-TriiodothyronineStart: 09-05-2023 End: 09-25-0905qbig 1 tablet by mouth once daily in the morningliothyronine (CYTOMEL) 5 MCG tablet TAKE 1 TABLET BY MOUTH EVERY MORNING 90 tablet 3 10/29/2024 ActiveStart: 02-06-2023 End: 76-89-2027aiptwkrfzdla (CYTOMEL) 5 MCG tablet TAKE 1 TABLET DAILY 90 tablet 2 02/06/2023 07/18/2023 Discontinued (Discontinued by another clinician) magnesium oxide 400 mg oral tablet (20 sources)Start: 85-92-3527axgb 1 tablet by mouth in the morning, then take 1 tablet by mouth at bedtimemagnesium oxide (MAGOX) 400 mg tablet Take 1 tablet (400 mg total) by mouth in the morning and 1 tablet (400 mg total) before bedtime. 180 tablet 1 01/17/2022 Activemeclizine hydrochloride 12.5 mg oral tablet (20 sources)AntiemeticStart: 03-05-2024 End: 18-76-7637yoyq 1 tablet by mouth three times daily as needed for dizziness meclizine (ANTIVERT) 12.5 mg tablet Take 1 tablet (12.5 mg total) by mouth 3 (three) times a day asneeded for dizziness. 90 tablet 1 10/30/2024 Adioff28 hr metoprolol succinate 50 mg extended release oral tablet (20 sources)beta-Adrenergic BlockerStart: 08-15-2023 End: 08-11-4827whwq 1 tablet by mouth once daily in the morningmetoprolol succinate XL (TOPROL XL) 50 mg 24 hr tablet Take 1 tablet (50 mg total) by mouth every morning. 90 tablet 3 10/04/2024 ActiveStart: 24-33-2184mjfwyxrgym succinate XL (TOPROL XL) 50 mg 24 hr tablet TAKE 1 TABLET DAILY 90 tablet 3 11/02/2022 Activeomeprazole 20 mg delayed release oral capsule (20 sources)Proton Pump InhibitorStart: 19-95-4103zgrv 1 capsule by mouth once daily as needed for gastroesophageal reflux diseaseomeprazole (PriLOSEC) 20 mg capsule Take 1 capsule (20 mg total) by mouth daily as needed (heartburn). 02/07/2024 Active End: 91-82-8616iyta 1 capsule by mouth every other dayomeprazole (PriLOSEC) 20 mg capsule Take 1 capsule (20 mg total) by mouth every other day. 02/07/2024 Discontinued (Therapy completed)take 1 capsule by mouth in the morningomeprazole (PriLOSEC) 20 mg capsule Take 1 capsule (20 mg total) by mouth in the morning. Activemicroencapsulated potassium chloride 20 meq extended release oral tablet (20 sources)Start: 09-18-2024 End: 83-39-1502rqsibhfsc chloride (K-TAB,KLOR-CON) 20 mEq CR tablet Take 1 tablet (20 mEq total) by mouth in the morning. 90 tablet 1 09/18/2024 10/02/2024 Discontinued (Duplicate order)Start: 04-21-2023 End: 99-05-4316ktij 1 tablet by mouth once daily in the morningpotassium chloride (KLOR-CON M 20) 20 MEQ CR tablet TAKE 1 TABLET BY MOUTH EVERY MORNING 100 tablet2 11/13/2024 Activepyridoxine HCl, vitamin B6, (VITAMIN B-6 ORAL) (20 sources)take 1 tablet by mouth in the morningpyridoxine HCl, vitamin B6, (VITAMIN B-6 ORAL) Take 1 tablet by mouth in the morning. Activetake 1 tablet by mouth in the morningpyridoxine HCl, vitamin B6, (VITAMIN B-6 ORAL) Take 1 tablet by mouth in the morning. 0 ActivetraZODone hydrochloride 50 mg oral tablet (20 sources)Serotonin Reuptake InhibitorStart: 69-91-7856ggiu 1 tablet by mouth once dailytraZODone (DESYREL) 50 mg tablet TAKE 1 TABLET BY MOUTH NIGHTLY 90 tablet 3 02/10/2025 ActiveStart: 12-05-2022 End: 83-15-8564rmds 1 tablet by mouth once dailytraZODone (DESYREL) 50 mg tablet Take 1 tablet (50 mg total) by mouth nightly. 90 tablet 1 10/04/2024 02/10/2025 Discontinuedzolpidem tartrate 10 mg oral tablet (20 sources)gamma-Aminobutyric Acid-ergic AgonistStart: 08-15-2023 End: 14-73-3181zsem 1 tablet by mouth once daily as needed for sleepzolpidem (AMBIEN) 10 mg tablet Indications: Other insomnia Take 1 tablet (10 mg total) by mouth nightly as needed for sleep. 30 tablet 2 01/23/2025 ActiveStart: 05-30-2023 End: 83-09-3861iuuz 1 tablet by mouth once daily as needed for sleepzolpidem (AMBIEN) 10 mg tablet Indications: Other insomnia Take 1 tablet (10 mg total) by mouth nightly as needed for sleep. 30 tablet 2 08/08/2023 ActiveStart: 04-03-2023 End: 12-58-2955gtyynepp (AMBIEN) 10 mg tablet Indications: Persistent insomnia TAKE 1 TABLET NIGHTLY NEEDED FORSLEEP 30 tablet 1 05/10/2023 05/21/2023 Discontinued (Formulary change) Completed/Discontinued Medications MedicationDrug Class(es)DatesSig (Normalized)Sig (Original)acetaminophen 500 mg oral tablet (4 sources) End: 62-67-7953pztc 2 tablets by mouth every eight hours as neededacetaminophen (TYLENOL EXTRA STRENGTH) 500 mg tablet Take 2 tablets (1,000 mg total) by mouth every8 (eight) hours as needed. 0 07/17/2023 Discontinued (Therapy completed) diclofenac sodium 0.01 mg/mg topical gel (4 sources)Nonsteroidal Anti-inflammatory DrugStart: 11-16-2022 End: 68-91-2041jserqwfqnu sodium (VOLTAREN) 1 % gel Apply 2 g topically in the morning and 2 g at noon and 2 g in the evening and 2 g before bedtime. 100 g 1 11/16/2022 07/17/2023 Discontinued (Therapy completed)doxepin 6 mg oral tablet (2 sources)Tricyclic AntidepressantStart: 05-21-2023 End: 41-64-2382fkts 1 tablet by mouth once dailydoxepin 6 mg tablet Indications: Persistent insomnia Take 1 tablet by mouth nightly. 30 tablet 1 05/21/2023 07/17/2023 Discontinued (Therapy completed)krill oil (4 sources) End: 96-48-8504nkuc 1 capsule by mouth in the morning xswfz-ly-0-rti-tch-dfhnuja-ast (KRILL OIL) 1,227-106-00-80 mg capsule Take 1 capsule by mouth in the morning. 0 07/17/2023 Discontinued (Therapy completed) take 1 capsule by mouth in the ofbvjzeojiol-jr-8-cxt-tah-iedwssc-ast (KRILL OIL) 1,628-937-43-80 mg capsule Take 1 capsule by mouth in the morning. 0 Active linaclotide 0.072 mg oral capsule (15 sources)Guanylate Cyclase-C AgonistStart: 07-26-2023 End: 91-27-8422jpvd 1 capsule by mouth once daily before breakfastlinaCLOtide (LINZESS) 72 mcg capsule Take 1 capsule (72 mcg total) by mouth every morning before breakfast. 90 capsule 1 07/26/2023 02/07/2024 Discontinued (Cost of medication)100 ml zoledronic acid 0.05 mg/ml injection (20 sources)BisphosphonateStart: 03-04-2022 End: 25-48-9617yqfavsscty acid (RECLAST) IVPB 5 mg/100 mL in mannitol 5% and water (0.05 mg/mL premix) Problems Active Problems Problem ClassificationProblemDateDocumented DateEpisodic/ChronicAnxiety disorders (20 sources)Anxiety; Translations: [Anxiety disorder, unspecified]Onset: 719417-30-1143GippsldNhknlrh kidney disease (20 sources)Chronic kidney disease stage 3; Translations: [Stage 3 chronic kidney disease]Onset: 05-19-2016 Resolved: 840726-27-8994DxyzadhGqkrnno kidney disease (2 sources)Chronic kidney disease; Translations: [Chronic kidney disease, stage 3a]Onset: 67-79-8441Rbzjhrpvjp disorders (20 sources)Atrioventricular block, complete; Translations: [Complete atrioventricular block]Onset: 09-08-2022 Resolved: 17-21-0101QhotzctTmbtkuchwj heart failure; nonhypertensive (20 sources)Chronic diastolic heart failure; Translations: [Chronic diastolic (congestive) heart failure]Onset: 850682-04-2780ZvfqkwrSxragewn atherosclerosis and other heart disease (20 sources)Coronary arteriosclerosis; Translations: [Atherosclerotic heart disease of [place] coronary artery without angina pectoris]Onset: 08-12-2021 24-97-0803ZfofnueRbbtcxlf of mouth; excluding dental (1 source)Xerostomia; Translations: [Disturbances of salivary secretion] 42-79-0878VehitfmlCkkaggpxq of lipid metabolism (20 sources)Hyperlipidemia, unspecified; Translations: [Hypercholesterolemia] Onset: 656667-36-3440BrirjitZnuxjthpujaqty and diverticulitis (20 sources)Diverticular disease; Translations: [Diverticulosis of intestine, part unspecified, without perforation or abscess without bleeding]Onset: 826977-74-6334XxobfycTzbnninjar disorders (20 sources)Gastroesophageal reflux disease; Translations: [Gastro-esophageal reflux disease without esophagitis]Onset: 243297-08-2517CofwqmyEccpkhsfb hypertension (20 sources)Essential (primary) hypertension; Translations: [Essential hypertension]Onset: 62-78-9846UgmxnkoAptffifpohuh with complications and secondary hypertension (20 sources)Renovascular hypertension; 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] Onset: 987825-58-4691YtydhvvOunokilvl or stenosis of precerebral arteries (20 sources)Bilateral stenosis of carotid arteries; Translations: [Occlusion and stenosis of bilateral carotid arteries]Onset: 114092-28-5507Iltlpfh Osteoarthritis (20 sources)Osteoarthritis of left knee joint; Translations: [Unilateral primary osteoarthritis, left knee]Onset: 135788-84-9092IhldusrXrwqz connective tissue disease (20 sources)Artificial knee joint present; Translations: [Presence of unspecified artificial knee joint]Onset: 649365-92-9914WkqetqwTbrgw ear and sense organ disorders (20 sources)Hearing loss; Translations: [Unspecified hearing loss, unspecified ear]Onset: 097939-95-3563IandnkyBldcc nutritional; endocrine; and metabolic disorders (1 source)Body mass index 25-29 - overweight; Translations: [Overweight] 70-67-2414TbxjwvjaBawqu upper respiratory infections (20 sources)Nasal discharge; Translations: [Postnasal drip]Onset: 10-27-2022 62-16-9098FxhwufewJqsrbjpe codes; unclassified (20 sources)Obstructive sleep apnea syndrome; Translations: [Obstructive sleep apnea (adult) (pediatric)]Onset: 544198-97-7612LdzzqfxWkyiqdss codes; unclassified (1 source)Other insomnia; Translations: [Other insomnia]Onset: 26-45-4610Kpqowur Residual codes; unclassified (13 sources)Insomnia; Translations: [Other insomnia]66-47-2530RmulyvnKeczvsje codes; unclassified (20 sources)Persistent insomnia; Translations: [Insomnia, unspecified]Onset: 799981-74-0819FiemvhvbSohcachc codes; unclassified (1 source)Insomnia; Translations: [Insomnia, unspecified]44-57-4150Suwgqnxe Residual codes; unclassified (1 source)Menopause present; Translations: [Asymptomatic menopausal state] 96-19-9854KtkdszksRrtmuxvyo and history of mental health and substance abuse codes (3 sources)Patient encounter status; Translations: [Encounter for screening for depression]00-56-3985RraqdzxoAiwfxxirnay; intervertebral disc disorders; other back problems (20 sources)Degeneration of lumbar intervertebral disc; Translations: [Degeneration, intervertebral disc, lumbar]Onset: hronic Thyroid disorders (20 sources)Hypothyroidism; Translations: [Hypothyroidism, unspecified]Onset: 921330-11-1763RzbhlhjFfesacyjlhll (20 sources)Mass of body structure; Translations: [Mass]Onset: 12-09-2021 53-65-5528Uuqosvgysufo (1 source)controlledOnset: 05-10-2024 Past or Other Problems Problem ClassificationProblemDateDocumented DateEpisodic/ChronicComplication of device; implant or graft (4 sources)Displacement of cardiac electrode, initial encounter; Translations: [DISPLACEMENT CARD ELECTRODE INITIAL]Onset: 79-99-6318UdbynkrjIqdewxldal associated with dizziness or vertigo (20 sources)Dizziness; Translations: [Dizziness and giddiness]Onset: 03-05-2024 49-95-2132FzpcjyrgFdyowehk mellitus without complication (20 sources)Impaired glucose tolerance; Translations: [Impaired glucose tolerance (oral)]Onset: 824381-22-9677IdhgzrmnObyyz and electrolyte disorders (20 sources)Hypokalemia; Translations: [Hypokalemia]Onset: EpisodicMood disorders (20 sources)Mood disordersOnset: 03-05-2024 Resolved: 620831-93-7263Xjahreztrak chest pain (1 source)Chest pain, unspecified; Translations: [CHEST PAIN UNSPECIFIED]Onset: 13-97-6162JwqelsvjRvgcc aftercare (1 source)Encounter for therapeutic drug level monitoring; Translations: [Encounter for therapeutic drug level monitoring]Onset: 76-88-6110YkbfevjfQgljd bone disease and musculoskeletal deformities (20 sources)Osteopenia; Translations: [Other specified disorders of bone density and structure, unspecified site]Onset: 177604-93-0880XavsrfmlKbzrc circulatory disease (20 sources)History of heart block; Translations: [Personal history of other diseases of the circulatory system]Onset: 340485-69-4414YjpiuyegWoztu ear and sense organ disorders (20 sources)Tinnitus; Translations: [Tinnitus, unspecified ear]Onset: 10-27-2022 93-60-3614VfazxqxpYkoyc fractures (20 sources)Closed fracture thoracic vertebra, wedge; Translations: [Wedge compression fracture of unspecified thoracic vertebra, initial encounter for closed fracture]Onset: 845991-66-7366IspazgywVuabh hematologic conditions (20 sources)Erythrocytosis; Translations: [Secondary polycythemia]Onset: 938823-29-3404WngkrqwtKjxdi lower respiratory disease (4 sources)Dyspnea, unspecified; Translations: [DYSPNEA UNSPECIFIED]Onset: 71-12-2104ZtzrthksCdnml lower respiratory disease (2 sources)Chronic cough; Translations: [Chronic cough]Onset: 05-10-2024 16-25-6523GbfklyadUtjbi nervous system disorders (1 source)Other acute postprocedural pain; Translations: [OTHER ACUTE POSTPROCEDURAL PAIN]Onset: 99-92-0615IjleitnoUajxi non-epithelial cancer of skin (20 sources)Basal cell carcinoma of skin; Translations: [Basal cell carcinoma of skin, unspecified]Onset: 865936-71-2146YgcellihMcthv non-traumatic joint disorders (20 sources)Pain in left knee; Translations: [Pain in joint, lower leg]Onset: 830933-79-9414OkvcfagpMjxhn nutritional; endocrine; and metabolic disorders (20 sources)Obesity; Translations: [Obesity, unspecified]Onset: 01-11-2022 Resolved: 107370-56-6203XrmvwxpNfoha nutritional; endocrine; and metabolic disorders (20 sources)Overweight; Translations: [Overweight]Onset: 335133-31-5140 EpisodicOther screening for suspected conditions (not mental disorders or infectious disease) (1 source)Other abnormal and inconclusive findings on diagnostic imaging of breast; Translations: [OTH ABN INCONCL FIND DX IMAG BREAST]Onset: 12-22-2021 EpisodicOther skin disorders (4 sources)Localized swelling, mass and lump, trunk; Translations: [LOCALIZD SWELLING MASS AND LUMP TRUNK]Onset: 27-01-4285OpjnmoftTxbekbos codes; unclassified (2 sources)Insomnia, unspecified; Translations: [Insomnia, unspecified]Onset: 44-12-4615PxuowkjqWaeaplir codes; unclassified (1 source)Asymptomatic menopausal state; Translations: [Asymptomatic menopausal state]Onset: 92-07-7327GuldvxotOlvcldvxmlsg (19 sources)Onset: Results Test NameValueInterpretationReference RangeFacilityOffice Visiton 03-11-2025 Follow-up [id number] MadrigalHongmonika Christopher 1935 F Date Provider Department Center 03/11/2025 LEAH BADILLO CAITLIN [facility] Family History Problem Relation Age of Onset Diabetes Sister Family Status - Relation Status Age at Mother Father Sister Level of Service:15066 [place] OFFICE/OUTPATIENT ESTABLISHED LOW MDM 20 MIN Reason for Visit and Comments: Follow-up [537173] - Patient is here today for a device check and a 6 month follow up. Patient denies chest, SOB/ROGEL, palpations/racing heart, leg swelling Coronary Artery Disease [187] Hypertension [728379] Hyperlipidemia [182] Pacemaker [Other] Complete AV block [Other] Bilateral carotid artery stenosis [Other] Congestive Heart Failure [127]NormalUniversity Hospitals TriPoint Medical CenterOrders Onlyon 87-66-2798Pqqcft [id number] Ramy Madrigal 1935 F Date Provider Department Center 03/08/2025 ELGIN LIM [facility] Family History Problem Relation Age of Onset Diabetes Sister Family Status - Relation Status Age at Mother Father SisterNormalUniversity of [facility] System EdinburgCOMPREHENSIVE METABOLIC PANELon 78-89-0632Saiqqcu [Mass/Vol]4.4 g/dLNormal3.2-5.3PFort [facility] Ambulatory PPGComment on above:Performed By: #### CMP #### [facility] ([facility]) [address] [place] [address] VIRALP [Catalytic activity/Vol]73 U/RUrstok82-969TmsXukxvo Hospital Ambulatory PPGComment on above:Performed By: #### CMP #### [facility] ([facility]) [address] [place] [address] VIRALT [Catalytic activity/Vol]12 U/LNormal<=31PFort [facility] Ambulatory PPGComment on above:Performed By: #### CMP #### [facility] ([facility]) [address] [place] [address] VIRAnion gap [Moles/Vol]10 mmol/LNormal5-15[facility] Ambulatory PPGComment on above:Performed By: #### CMP #### [facility] ([facility]) [address] [place] [address] VIRAST [Catalytic activity/Vol]28 U/LNormal<=41[facility] Ambulatory PPGComment on above:Performed By: #### CMP #### [facility] ([facility]) [address] [place] [address] VIRBilirubin [Mass/Vol]0.8 mg/dLNormal0.3-1.2PFort [facility] Ambulatory PPGComment on above:Performed By: #### CMP #### [facility] ([facility]) [address] [place] [address] VIRCalcium [Mass/Vol]9.8 mg/dLNormal8.5-10.5PFort [facility] Ambulatory PPGComment on above:Performed By: #### CMP #### [facility] ([facility]) [address] [place] [address] VIRChloride [Moles/Vol]100 mmol/KXrpjje89-805VglFaimxi Hospital Ambulatory PPGComment on above:Performed By: #### CMP #### [facility] ([facility]) [address] [place] [address] VIRCO2 [Moles/Vol]31 mmol/JKnvuid21-77RokKzqeuc Hospital Ambulatory PPGComment on above:Performed By: #### CMP #### [facility] [facility] ([facility]) [address] [place] [address] VIRCreatinine [Mass/Vol]0.99 mg/dLNormal0.40-1.00ProChildren[facility] Ambulatory PPGComment on above:Result Comment: METHOD TRACEABLE TO IDMS STANDARDPerformed By: #### CMP #### [facility] ([facility]) [address] [place] [address] VIRGFR/1.73 sq M.predicted among non-blacks MDRD (S/P/Bld) [Vol rate/Area]55 mL/min/{1.73_m2}Low>=60ProChildren'[facility] Hospital Of Columbus Ambulatory PPGComment on above:Result Comment: Reported eGFR is based on the CKD-EPI 2020 equation that does not use a race coefficient.Performed By: #### CMP #### [facility] ([facility]) [address] [place] [address] VIRGlucose [Mass/Vol]119 mg/rHKclk20-94YcmJkkfle Hospital Ambulatory PPGComment on above:Performed By: #### CMP #### [facility] ([facility]) [address] [place] [address] VIRPotassium [Moles/Vol]3.9 mmol/LNormal3.5-5.0ProChildren'[facility] Hospital Of [facility] Ambulatory PPGComment on above:Performed By: #### CMP #### [facility] ([facility]) [address] [place] [address] VIRProtein [Mass/Vol]7.6 g/dLNormal6.0-8.0[facility] Ambulatory PPGComment on above:Performed By: #### CMP #### [facility] ([facility]) [address] [place] [address] VIRSodium [Moles/Vol]141 mmol/CDaoklu210-069PhzUgzsra Hospital Ambulatory PPGComment on above:Performed By: #### CMP #### [facility] ([facility]) [address] [place] [address] VIRUrea nitrogen [Mass/Vol]19 mg/dLNormal5-27[facility] Ambulatory PPGComment on above:Performed By: #### CMP #### [facility] ([facility]) [address] [place] [address] VIRHEMOGLOBIN A1Con 14-54-8756Cbokhoy [Mass/Vol]117 mg/dLNormal [facility] Ambulatory PPGComment on above:Performed By: #### HA1C #### [facility] ([facility]) [address] [place] [address] ZOITmU6z (Bld) [Mass fraction]5.7 %High4.4-5.6[facility] Ambulatory PPGComment on above:Result Comment: ADA Guidelines Result HgbA1c Normal : less than 5.7 % Prediabetes : 5.7 % to 6.4 % Diabetes : > 6.4 % Use with caution in patients with abnormal hemoglobin variants as the half-life of red blood cells and in vivo glycation rates are affected.Performed By: #### HA1C #### [facility] ([facility]) [address] [place] [address] VIRLIPID PROFILEon 98-08-5312Amktighudvx [Mass/Vol]123 mg/dLLow 150-200[facility] Ambulatory PPGComment on above:Performed By: #### LIPR #### [facility] ([facility]) [address] [place] [address] VIRCholesterol in HDL [Mass/Vol]63 mg/dLNormal>39[facility] Ambulatory PPGComment on above:Result Comment: HDL <40 mg/dL - High Risk HDL > or = 40mg/dL- Desirable HDL >60 mg/dL - Negative RiskPerformed By: #### LIPR #### [facility] ([facility]) [address] [place] [address] VIRCholesterol in LDL [Mass/Vol]45 mg/dLNormal<130[facility] Ambulatory PPGComment on above:Result Comment: LDL <100 mg/dL - Desirable LDL >160 mg/dL - High RiskPerformed By: #### LIPR #### [facility] ([facility]) [address] [place] [address] VIRCHOLESTEROL:HDL2.6Oxlnwx6.0-5.0[facility] Ambulatory PPGComment on above:Performed By: #### LIPR #### [facility] ([facility]) [address] [place] [address] VIRTriglyceride [Mass/Vol]73 mg/xPLtnafx08-692LxdQvycfu Hospital Ambulatory PPGComment on above:Performed By: #### LIPR #### [facility] ([facility]) [address] [place] [address] VIRVERY LOW EGVKOHMLYYU41 mg/dLNormal0-30[facility] Ambulatory PPGComment on above:Performed By: #### LIPR #### [facility] ([facility]) [address] [place] [address] VIRTHYROID PROFILE INCLUDES TSH FT4on 93-54-6448Yiib T4 [Mass/Vol]3.61 ng/dLHigh0.61-1.60[facility] Ambulatory PPGComment on above:Performed By: #### THYR #### [facility] ([facility]) [address] [place] [address] VIRTSH2.04 uIU/mLNormal0.49-4.67ProChildren[facility] Ambulatory PPGComment on above:Performed By: #### THYR #### [facility] ([facility]) [address] [place] [address] VIROrders Onlyon 44-59-9400Yfejkf [id number] Ramy Madrigal Y 1935 F Date Provider Department Center 12/07/2024 [facility] Family History Problem Relation Age of Onset Diabetes Sister Family Status - Relation Status Age at Mother Father SisterNormalUniversity [facility]aritan North Health CenterOffice Visiton 22-44-2919Raszzw- up [id number] Ramy Madrigal Y 1935 F Date Provider Department Center 10/10/2024 [facility] Family History Problem Relation Age of Onset Diabetes Sister Family Status - Relation Status Age at Mother Father Sister Level of Service:60289 [place] OFFICE/OUTPATIENT ESTABLISHED LOW MDM 20 MIN Reason for Visit and Comments: Coronary Artery Disease [187] Congestive Heart Failure [127] Hypertension [265137] Hyperlipidemia [182]NormalUnProMedica Defiance Regional HospitalDRUG SCREEN, URINE on 77-49-4124JFRGNULZRPI/METHAMPNegativeNoalNEGSamaritan North Health Center Comment on above:Result Comment: AMPH/METH screening cut off = 1000 ng/mL Performed By: #### MARY, THYR #### [facility] ([id number]) [address] [place], [place] [address]VLYYQKZJAXTPLubarqrlTwjhrrWKYJmiCuwrbf [place] HospitalComment on above:Result Comment: Barbiturates screening cut off value = 200 ng/mLPerformed By: #### BMP, THYR #### [facility] ([id number]) [address] [address] [place], [place] [address]YDXOZIMGFJFFHSIYoqqirnaXevxysHMJHfyIrfbju [place] HospitalComment on above:Result Comment: Benzodiazepines screening cut off value = 200 ng/mL Performed By: #### MARY, THYR #### [facility] ([id number]) [address] [place], [place] [address]SBGMWVVVCISIYersyvxeGthyumCSPFcbRdawoa [facility] [place] HospitalComment on above:Result Comment: Cannabinoids/THC screening cut off value = 50 ng/mL Performed By: #### BMP, THYR #### [facility] ([id number]) [address], [address] [place], [place] [address]CUZPEMI METABOLITENegativeNormalNEGProMedica [facility] Hospital Comment on above:Result Comment: Cocaine screening cut off value = 300 ng/mL Performed By: #### MARY, THYR #### [facility] ([id number]) [address], [address] [place], [place] [address]GSZHPMUAkfcdylmNcvjfdHSOXgjMveuop [place] HospitalComment on above:Result Comment: Ecstasy screening cut off value = 500 ng/mL This report is intended for use in clinical monitoring or management of patients.Performed By: #### MARY, THYR #### [facility] ([id number]) [address] [place], [place] [address]MHUJGOCHIMpktcilfZkpexwNFIPnmBnopki [facility] HospitalComment on above:Result Comment: Methadone screening cut off value = 300 ng/mL.Performed By: #### BMP, THYR #### [facility] ([id number]) [address], [address] [place], [place] [address]NKAHDNYQuffafkpJtnqnyOFFFqxVonkcf [facility] [place] HospitalComment on above:Result Comment: Opiates screening cut off value = 300 ng/mL NOTE: This test is used for the detection of codeine, hydrocodone (>1000 ng/mL), morphine and hydromorphone (>900 ng/mL) in urine.Performed By: #### BMP, THYR #### [facility] ([id number]) [address] [place] [address], [address] [place], [place] [address]TTRHWDEWTFiqbqhpvLoaotaWBFDwrHdpdds [place] HospitalComment on above:Result Comment: Oxycodone screening cut off value = 300 ng/mL NOTE: This test is used for the detection of oxycodone and oxymorphone in urine.Performed By: #### BMP, THYR #### [facility] ([id number]) [address] [place] [address], [address] [place], [place] [address]TIDGRZHARDEBQEgkmerzeGdghtmCZXWgmBkfjpi [place] HospitalComment on above:Result Comment: Phencyclidine screening cut off value = 25 ng/mL Performed By: #### BMP, THYR #### [facility] ([id number]) [address] [place] [address], [address] [place], [place] [address]Oagflp Visiton 96-04-6224Rvwinv-up [id number] Ramy Madrigal 1935 F Date Provider Department Center 04/10/2024 [facility] Family History Problem Relation Age of Onset Diabetes Sister Family Status - Relation Status Age at Sister Level of Service:48816 [place] OFFICE/OUTPATIENT ESTABLISHED MOD MDM 30 MIN Reason for Visit and Comments: Hypertension [852770] Congestive Heart Failure [127] Coronary Artery Disease [187] Syncope [506]NormalUnProMedica Defiance Regional HospitalBASIC METABOLIC PANLon 71-05-3402Zjdyb gap [Moles/Vol]13 mmol/LNormal5-15[facility] Comment on above:Performed By: #### CBC, BMP, 54771-8, 03469-8, 2777-1, 3084-1, THYR, HA1C, 2731-8, 76048-5 #### [facility] ([id number]) [address] [place] [address], [address] [place], [place] [address]Hejquao [Mass/Vol]10.0 mg/dLNormal8.5-10.5ProMedica TrihealthComment on above:Performed By: #### CBC, BMP, 94660-6, 53899-2, 2777-1, 3084-1, THYR, HA1C, 2731-8, 59131-2 #### [facility] ([id number]) [address], [address] [place], [place] [address]Medtsqrg [Moles/Vol]97 mmol/GOwh44-933RmwGiknxfSamaritan North Health Center Comment on above:Performed By: #### CBC, BMP, 33493-7, 27149-0, 2777-1, 3084-1, THYR, HA1C, 2731-8, 58643-4 #### [facility] ([id number]) [address], [address] [place], [place] [address]FI1 [Moles/Vol]30 mmol/RZnoowu70-49EleDmfnmwWright-Patterson Medical Center Comment on above:Performed By: #### NEAL, MARY, 50064-1, 60600-8, 7-1, 3084-1, THYR, HA1C, 2731-8, 49488-6 #### [facility] ([id number]) [address], [address] [place], [place] [address]Ehyaxomeih [Mass/Vol]0.96 mg/dLNormal0.40-1.00[facility] Health CenterComment on above:Result Comment: METHOD TRACEABLE TO IDMS STANDARD Performed By: #### NEAL, MARY, 23541-3, 51965-9, 7-1, 3084-1, THYR, HA1C, 2731- 8, 15508-5 #### [facility] ([id number]) [address], [address] [place], [place] [address]OWE/1.73 sq M.predicted among non-blacks MDRD (S/P/Bld) [Vol rate/Area]58 mL/min/{1.73_m2}Low>59ProRegional Medical CenterComment on above: Result Comment: Reported eGFR is based on the CKD-EPI 2020 equation that does not use a race coefficient.Performed By: #### NEAL, MARY, 11069-7, 58270-9, 2777- 1, 3084-1, THYR, HA1C, 2731-8, 96666-0 #### [facility] ([id number]) [address], [address] [place], [place] [address]Bwypook [Mass/Vol]111 mg/tOImkn97-25AiwIwjygjRegional Medical Center Comment on above:Performed By: #### CBC, BMP, 74720-7, 18551-6, 7-, 3084-1, THYR, HA1C, 2731-8, 41779-4 #### [facility] ([id number]) [address], [address] [place], [place] [address]Guzllsuan [Moles/Vol]3.8 mmol/LNormal3.5-5.0ProMiami Valley Hospitalca TrihealthComment on above:Performed By: #### NEAL, BMP, 39505-5, 19432-9, 2776-, 3084-1, THYR, HA1C, 1-8, 41652-0 #### [facility] ([id number]) [address], [address] [place], [place] [address]Nmuzjq [Moles/Vol]140 mmol/JConnle721-010YcpWttalo [place] HospitalComment on above:Performed By: #### CBC, BMP, 44533-6, 39604-4, 7-1, 3084-1, THYR, HA1C, 2731-8, 50789-3 #### [facility] ([id number]) [address], [address] [place], [place] [address]Nkog nitrogen [Mass/Vol]20 mg/dLNormal5-27ProSouthern [facility] Medical Center HospitalComment on above:Performed By: #### CBC, BMP, 92568-2, 74688-1, 7-1, 3084-1, THYR, HA1C, 2731-8, 87085-6 #### [facility] ([id number]) [address], [address] [place], [place] [address]MHFVZYEO BLOOD COUNTon 21-71-2390Gvxatkmvikf distribution width (RBC) [Ratio]14.1 %Wdyjoi60.5-15.0ProRegional Medical CenterComment on above: Performed By: #### CBC, BMP, 04044-8, 89101-3, 2777-1, 3084-1, THYR, HA1C, 2731- 8, 33751-5 #### [facility] ([id number]) [address], [address] [place], [place] [address]Wyofyqzico (Bld) [Volume fraction]43.6 %Pfgmbr57-47FynFnlfhcRegional Medical CenterComment on above:Performed By: #### CBC, BMP, 76948-3, 30134-5, 7-1, 3084-1, THYR, HA1C, 2731-8, 58310-7 #### [facility] ([id number]) [address], [address] [place], [place] [address]Dlvdiacwqs (Bld) [Mass/Vol]14.9 g/dNJgnlpm76.7-15.5ProMedSelect Medical Specialty Hospital - Boardman, IncComment on above:Performed By: #### CBC, BMP, 10893-8, 05775-0, 7-1, 3084-1, THYR, HA1C, 2731-8, 17358-6 #### [facility] ([id number]) [address], [address] [place], [place] [address]SYJ (RBC) [Entitic mass]29.6 nqGawqma04-44GpyTfluea [place] HospitalComment on above:Performed By: #### CBC, BMP, 68497-6, 69975-9, 2777-1, 3084-1, THYR, HA1C, 2731-8, 68821-9 #### [facility] ([id number]) [address], [address] [place], [place] [address]UDUT (RBC) [Mass/Vol]34.2 g/dOYanany91-79AzrVmgqns [place] HospitalComment on above:Performed By: #### CBC, BMP, 81268-3, 53148-1, 2777-1, 3084-1, THYR, HA1C, 2731-8, 01966-0 #### [facility] ([id number]) [address], [address] [place], [place] [address]KMW (RBC) [Entitic vol]87 lSTlzoae62-119ZedTyentm [place] HospitalComment on above:Performed By: #### CBC, BMP, 97777-1, 79977-6, 2777-1, 3084-1, THYR, HA1C, 2731-8, 08827-9 #### [facility] ([id number]) [address], [address] [place], [place] [address]Gvpxihbx mean volume (Bld) [Entitic vol]10.0 fLNormal7-12 ProMedica TrihealthComment on above:Performed By: #### CBC, BMP, 90520-5, 94726-1, 2777-1, 3084-1, THYR, HA1C, 2731-8, 45021-7 #### [facility] ([id number]) [address], [address] [place], [place] [address]Vjgdnlxbv (Bld) [#/Vol]307 10*3/eFKewgbd659-089QpyValilk [place] HospitalComment on above:Performed By: #### CBC, BMP, 03109-0, 42851-3, 2777-1, 3084-1, THYR, HA1C, 2731-8, 61418-8 #### [facility] ([id number]) [address], [address] [place], [place] [address]VPC COUNT5.04 X10E12/LNormal3.80-5.20Pro[facility] Comment on above:Performed By: #### CBC, BMP, 30771-8, 40927-9, 2777-1, 3084-1, THYR, HA1C, 2731-8, 59352-1 #### [facility] ([id number]) [address], [address] [place], [place] [address]AEH (Bld) [#/Vol]9.2 10*3/uLNormal4.0-11.0ProRegional Medical CenterComment on above:Performed By: #### CBC, BMP, 18665-3, 27206-2, 2776-1, 3083-1, THYR, HA1C, 2730-8, 76518-3 #### [facility] ([id number]) [address], [address] [place], [place] [address]SAS A1C (GLYCO-HGB)on 69-84-9296Cjolhsi [Mass/Vol]114 mg/dL NormalProRegional Medical CenterComment on above:Performed By: #### BMP, THYR #### [facility] ([id number]) [address], [address] [place], [place] [address]FzK0b (Bld) [Mass fraction]5.6 %Normal4.4-5.6ProRegional Medical CenterComment on above:Result Comment: NOTE ADA Guidelines Result HgbA1c Normal : less than 5.7 % Prediabetes : 5.7 % to 6.4 % Diabetes : > 6.4 % Use with caution in patients with abnormal hemoglobin variants as the half-life of red blood cells and in vivo glycation rates are affected.Performed By: #### BMP, THYR #### [facility] ([id number]) [address], [address] [place], [place] [address]Qbslh 1996 panelon 25-15-9778Itzazwkahsx [Mass/Vol]132 mg/dLLow 150-200ProRegional Medical CenterComment on above:Performed By: #### CBC, BMP, 90118-4, 67224-4, 7-1, 3083-1, THYR, HA1C, 2730-8, 61428-6 #### [facility] ([id number]) [address], [address] [place], [place] [address]Gyguneuambd in HDL [Mass/Vol]57 mg/dLNormal>39ProMediMetroHealth [facility] Campus Medical Center HospitalComment on above:Result Comment: HDL <40 mg/dL - High Risk HDL > or = 40mg/dL- Desirable HDL >60 mg/dL - Negative Risk Performed By: #### NEAL, BMP, 54711- 1, 36813-3, 2777-1, 3084-1, THYR, HA1C, 2730-8, 66723-4 #### [facility] ([id number]) [address], [address] [place], [place] [address]Cbguwbxyahf in LDL [Mass/Vol]60 mg/dLNormal<130ProMediMetroHealth Main Campus Medical Center HospitalComment on above:Result Comment: LDL <100 mg/dL - Desirable LDL >160 mg/dL - High Risk Performed By: #### NEAL, BMP, 91308- 1, 90883-8, 7-1, 3084-1, THYR, HA1C, 2730-8, 34620-5 #### [facility] ([id number]) [address], [address] [place], [place] [address]Qwxpdysfxxs in VLDL [Mass/Vol]15 mg/dLNormal0-30ProRegional Medical CenterComment on above:Performed By: #### NEAL, BMP, 47921-6, 19325-1, 2777-1, 3084-1, THYR, HA1C, 2731-8, 96969-1 #### [facility] ([id number]) [address], [address] [place], [place] [address]YFTKWOFNIKY:HDL2.1Udzcxi7.0-5.0Pro[facility]ica [facility] HospitalComment on above:Performed By: #### MARY DE JESUS, 62200-3, 31385-3, 7-1, 3084-1, THYR, HA1C, 2731-8, 06466-2 #### [facility] ([id number]) [address] [facility] [address], [address] [place], [place] [address]Wwoazzjkflkx [Mass/Vol]74 mg/dVPoaiox61-728PokSbholc [facility] [place] HospitalComment on above:Performed By: #### MARY DE JESUS, 45710-0, 97671-5, 2776-, 3084-1, THYR, HA1C, 2731-8, 06595-6 #### [facility] ([id number]) [address] [facility] [address], [address] [place], [place] [address]NWPKLUJSUrk 57-74-7946Aazqskppl [Mass/Vol]2.3 mg/dLNormal1.8-2.6 [facility] HospitalComment on above:Performed By: #### MARY DE JESUS, 83397-9, 34049-5, 2776-, 3083-1, THYR, HA1C, 2731-8, 83319-8 #### [facility] ([id number]) [address] [facility] [address], [address] [place], [place] [address]VEAJTXIVKQbz 43-49-9274Yiggjkfja [Mass/Vol]4.4 mg/dLNormal 2.4-4.9Pro[facility] HospitalComment on above:Performed By: #### MARY DE JESUS, 53037-6, 64992-7, 2776-, 3084-1, THYR, HA1C, 2731-8, 34795-0 #### [facility] ([id number]) [address] [facility], [address] [place], [place] [address]HXDB Influenza A/Influenza B/SARS-COV-2 Veritoron 02-07-2024 External Poct Influenza A AntigenNegativeSuburban Community Hospital & Brentwood HospitalExternal Poct Influenza B AntigenNegativeCone Health MedCenter High PointARS-CoV-2 (COVID-19) Ag IA.rapid Ql (Resp)NegativeProGuernsey Memorial HospitalProGuernsey Memorial Hospital Parathyrin.intact [Mass/Vol]on 14-16-3666OHM USUDRD63 pg/jIGbjxud52-62TozGvgnit [place] HospitalComment on above:Performed By: #### BMP, THYR #### [facility] ([id number]) [address] [facility] [address], [address] [place], [place] [address]BULWLHG PROFILEon 86-61-6726Cxbz T4 [Mass/Vol]1.85 ng/dLHigh 0.61-1.60ProRegional Medical CenterComment on above:Performed By: #### CBC, BMP, 84225-3, 97219-0, 7-1, 3084-1, THYR, HA1C, 2731-8, 46208-2 #### [facility] ([id number]) [facility] [facility], [address] [place], [place] [address]SSS7.26 uIU/mLLow0.49-4.67ProRegional Medical CenterComment on above:Performed By: #### CBC, BMP, 59711-4, 13985-2, 7-1, 3084-1, THYR, HA1C, 2731-8, 38760-8 #### [facility] ([id number]) [address] [place] [address], [address] [place], [place] [address]DVZC ACIDon 28-68-2077Ipmkw [Mass/Vol]5.6 mg/dLNormal2.6-7.2 ProMedica TrihealthComment on above:Performed By: #### CBC, BMP, 65589-6, 72445-4, 2777-1, 3084-1, THYR, HA1C, 2731-8, 78176-7 #### [facility] ([id number]) [address] [place] [address], [address] [place], [place] [address]Yyhxloq D+Metabolites [Mass/Vol]on 71-93-2491LHHWDFH D 25 HYD TOT>120.3Zdjk93-977XkuXialwxSamaritan North Health CenterComment on above:Result Comment: Vitamin D status 25 [place] Vitamin D Deficiency <20 ng/mL Insufficiency 20-29 ng/mL Sufficiency 30-100 ng/mL Toxicity >100 ng/mL NOTE: A pediatric reference range has not been established by the intelligence support officer of this kit. The [place] [employer] recommends a Vitamin D level of = or >20ng/mL in infants and children.Performed By: #### BMP, THYR #### [facility] ([id number]) [address] [place] [address], [address] [place], [place] [address]Oixp Screen, Urineon 09-27-3716Donkxznohnec Screen method >1000 ng/mL Ql (U)NegativeNegative^NegativeProMedica Health SystemComment on above: AMPH/METH screening cut off = 1000 ng/mLBarbiturates Screen Ql (U)Negative Negative^NegativeProMedica Health SystemComment on above:Barbiturates screening cut off value = 200 ng/mLBenzodiazepines Ql (U)NegativeNegative^Negative [facility] SystemComment on above:Benzodiazepines screening cut off value = 200 ng/mLCocaine Ql (U)NegativeNegative^NegativeProMedica Health SystemComment on above:Cocaine screening cut off value = 300 ng/mLMethadone Screen Ql (U) NegativeNegative^NegativeProMedica Health SystemComment on above:Methadone screening cut off value = 300 ng/mL.Methylenedioxymethamphetamine Screen Ql (U) NegativeNegative^NegativeProMedica Health SystemComment on above:Ecstasy screening cut off value = 500 ng/mL This report is intended for use in clinical monitoring or management of patients. Opiates Screen Ql (U)NegativeNegative^NegativeGifford Medical CenterMedica Health SystemComment on above:Opiates screening cut off value = 300 ng/mL NOTE: This test is used for the detection of codeine, hydrocodone (>1000 ng/mL), morphine and hydromorphone (>900 ng/mL) in urine. oxyCODONE Ql (U)NegativeNegative^NegativeProMedica Health SystemComment on above:Oxycodone screening cut off value = 300 ng/mL NOTE: This test is used for the detection of oxycodone and oxymorphone in urine. Phencyclidine Screen method >25 ng/mL Ql (U)NegativeNegative^NegativeProMedica Health SystemComment on above:Phencyclidine screening cut off value = 25 ng/mL Tetrahydrocannabinol Screen method >50 ng/mL Ql (U)NegativeNegative^Negative [facility] SystemComment on above:Cannabinoids/THC screening cut off value = 50 ng/mLRiverview Health Institute SystemDRUG SCREEN, URINEon 08-08-2023 AMPHETAMINE/METHAMPNegativeNormalNEGProMedica San Jose HospitalComment on above: Result Comment: AMPH/METH screening cut off = 1000 ng/mLPerformed By: #### DSU #### [facility] ([id number]) [address], [address] [place], [place] [address]QTYYHVCXIUAXEupwoetrWdsjcnNPLQxlZptlre [facility] HospitalComment on above:Result Comment: Barbiturates screening cut off value = 200 ng/mLPerformed By: #### DSU #### [facility] ([id number]) [address], [address] [place], [place] [address]HATBHOTTVDPWLQTJsziyzlkArcxcxEGPFueNspnga [facility] [place] HospitalComment on above:Result Comment: Benzodiazepines screening cut off value = 200 ng/mL Performed By: #### DSU #### [facility] ([id number]) [address], [address] [place], [place] [address]JLYTVWTZCCNMXwmzrfhhGlrgenKGBKorYntxfc [facility] HospitalComment on above:Result Comment: Cannabinoids/THC screening cut off value = 50 ng/mL Performed By: #### DSU #### [facility] ([id number]) [address], [address] [place], [place] [address]BKMJGLQ METABOLITENegativeNormalNEGProMedica [facility] Comment on above:Result Comment: Cocaine screening cut off value = 300 ng/mL Performed By: #### DSU #### [facility] ([id number]) [address], [address] [place], [place] 14549PEPRPXQBtiauckpTjwncpOZWYjtOvcodn San Jose HospitalComment on above:Result Comment: Ecstasy screening cut off value = 500 ng/mL This report is intended for use in clinical monitoring or management of patients.Performed By: #### DSU #### [facility] ([id number]) [address] [facility] [place], [place] [address]BWGAETQLUWlxqbcmvKhxqvnHBQTafFgdybj [place] HospitalComment on above:Result Comment: Methadone screening cut off value = 300 ng/mL.Performed By: #### DSU #### [facility] ([id number]) [address] [facility], [address] [place], [place] [address]TGPJWGJKzrpubcfChklcmWMPLbvGojwqf [place] HospitalComment on above:Result Comment: Opiates screening cut off value = 300 ng/mL NOTE: This test is used for the detection of codeine, hydrocodone (>1000 ng/mL), morphine and hydromorphone (>900 ng/mL) in urine.Performed By: #### DSU #### [facility] ([id number]) [address] [place], [place] [address]IIZODCOOBAqoyjumsAqlgvqWYUPjbFlhgef [place] HospitalComment on above:Result Comment: Oxycodone screening cut off value = 300 ng/mL NOTE: This test is used for the detection of oxycodone and oxymorphone in urine.Performed By: #### DSU #### [facility] ([id number]) [address], [address] [place], [place] [address]HLIRMNVSGTFDBXcpgyodiGwquunGZWMukPocdlo [place] HospitalComment on above:Result Comment: Phencyclidine screening cut off value = 25 ng/mL Performed By: #### DSU #### [facility] ([id number]) [address], [address] [place], [place] [address]ILUOC METABOLIC PANLon 27-69-3704Lahda gap [Moles/Vol]12 mmol/L Normal5-15ProSouthern [place] [facility] HospitalComment on above:Performed By: #### MARY, THYR #### [facility] ([id number]) [address], [address] [place], [place] [address]Wuldddq [Mass/Vol]9.8 mg/dLNormal8.5-10.5PFirelands Regional Medical Center South Campus HospitalComment on above:Performed By: #### MARY, THYR #### [facility] ([id number]) [address] [place], [place] [address]Qxxmbnhm [Moles/Vol]99 mmol/GOxwjsq87-272ArlXzswyc [place] HospitalComment on above:Performed By: #### MARY, THYR #### [facility] ([id number]) [address], [address] [place], [place] [address]UD7 [Moles/Vol]29 mmol/EHnijig25-41IxiXogbzo [facility] Comment on above:Performed By: #### MARY, THYR #### [facility] ([id number]) [address], [address] [place], [place] [address]Jfxfvqlzrk [Mass/Vol]0.87 mg/dLNormal0.40-1.00ProSouthern [place] [facility] HospitalComment on above:Result Comment: METHOD TRACEABLE TO IDMS STANDARD Performed By: #### MARY, THYR #### [facility] ([id number]) [address], [address] [place], [place] [address]PKC/1.73 sq M.predicted among non-blacks MDRD (S/P/Bld) [Vol rate/Area]65 mL/min/{1.73_m2}Normal>59ProSouthern [place] Medical [facility] HospitalComment on above: Result Comment: Reported eGFR is based on the CKD-EPI 2020 equation that does not use a race coefficient.Performed By: #### MARY, THYR #### [facility] ([id number]) [address] [address]Guxziio [Mass/Vol]110 mg/sFHkoj82-94RrwRvbywbRegional Medical Center Comment on above:Performed By: #### MARY, THYR #### [facility] ([id number]) [address] [address]Crndcbwyr [Moles/Vol]4.0 mmol/LNormal3.5-5.0ProRegional Medical CenterComment on above:Performed By: #### MARY, THYR #### [facility] ([id number]) [address] [address]Kwuqjh [Moles/Vol]140 mmol/XVipzdq331-090KkwRbsqhk [place] HospitalComment on above:Performed By: #### MARY, THYR #### [facility] ([id number]) [address] [address]Hfuh nitrogen [Mass/Vol]21 mg/dLNormal5-27ProRegional Medical CenterComment on above:Performed By: #### MARY, THYR #### [facility] ([id number]) [address] [address]Aldni Metabolic Panelon 84-24-6951Gfcua gap [Moles/Vol]12 mmol/L 5 - 15 mmol/LProMedica Health SystemCalcium [Mass/Vol]9.8 mg/dL8.5 - 10.5 mg/dL ProMedica Health SystemChloride [Moles/Vol]99 mmol/L98 - 109 mmol/LProMedica Health SystemCO2 [Moles/Vol]29 mmol/L22 - 32 mmol/LProMedica Health System Creatinine [Mass/Vol]0.87 mg/dL0.40 - 1.00 mg/dLSuburban Community Hospital & Brentwood HospitalComment on above:METHOD TRACEABLE TO IDMS STANDARDeGFR (CKD-EPI)non-race vftvjofcq97- PINMercy Hospital St. John'sComment on above: Reported eGFR is based on the CKD-EPI 2020 equation that does not use a race coefficient. Glucose [Mass/Vol]110 mg/sPFxxk64 - 99 mg/dLSuburban Community Hospital & Brentwood Hospital Interpretation and review of laboratory resultsAbnoSwain Community Hospital Potassium [Moles/Vol]4.0 mmol/L3.5 - 5.0 mmol/LPrCedar Springs Behavioral Hospital Health SystemSodium [Moles/Vol]140 mmol/L134 - 146 mmol/[facility] SystemUrea nitrogen [Mass/Vol]21 mg/dL5 - 27 mg/dLEllwood Medical Center THYROID PROFILEon 59-95-3263Hvdn T4 [Mass/Vol]2.62 ng/dLHigh0.61-1.60Sam[facility] North Health CenterComment on above:Performed By: #### MARY, THYR #### [facility] ([id number]) [address] [place] [address], [address] [place], [place] [address]ULN2.01 uIU/mLLow0.49-4.67ProRegional Medical CenterComment on above:Performed By: #### MARY, THYR #### [facility] ([id number]) [address] [place] [address], [address] [place], [place] [address]Ypitddm profile includes TSH FT4on 27-94-4886Gtbu T4 [Mass/Vol] 2.62 ng/dLHigh0.61 - 1.60 ng/dLSuburban Community Hospital & Brentwood HospitalInterpretation and review of laboratory resultsAbPhelps Memorial HospitalTS Qn0.01 m[IU]/LLow Ellwood Medical CenterECHOCARDIO M/2D COMPLETEon 64-24-2453KOTSZFRASJ M/2D COMPLETEPatient: RAMY MADRIGAL Exam Date: 09/08/2022 : 1935 Gender:F Ordering : LEAH SAGE Admission #: [id number] Family : Order #: [id number] CLICK HERE TO VIEW EXAM ECHOCARDIOGRAM REPORT [...] by: Anushka Amaya M.D. on 09/09/2022 at 09:29[place] [facility] HospitalLIPID PROFILEon 92-78-6834RQWV-HDL RATIO NORMSEE ACMC Healthcare SystemComment on above:Result Comment: 3.3 - 4.4 LOW RISK 4.4 - 7.1 AVERAGE RISK 7.1 - 11.0 MODERATE RISK >11.0 HIGH RISKPerformed By: #### LIPID, CMP #### [facility] [address] [address] [address] Cody Arellanoesterol [Mass/Vol]133 mg/dLNormal<=200[facility] Comment on above:Performed By: #### LIPID, CMP #### [facility] [address], [place] [address] Dr. Cody NicholsonCholesterol in HDL [Mass/Vol]61 mg/dLCritically dczx27-39CzvLutheran HospitalComment on above:Performed By: #### LIPID, CMP #### [facility] [address] [place] [address] Dr. Cody Arellanoesterol in LDL [Mass/Vol]62.8 mg/dLHighland District HospitalComment on above:Performed By: #### LIPID, CMP #### [facility] [address] [place] [address] Dr. Cody Barragan.total/Cholesterol in HDL [Mass ratio]2.2 {ratio} NormalThe [facility] HospitalComment on above:Performed By: #### LIPID, CMP #### [facility] [address] [place] [address] Dr. Cody Blanco NORMAL> or = 60 mg/dl - LOW CARDIOVASCULAR RISK <40 mg/dl - HIGH CARDIOVASCULAR RISKNoSelect Medical Specialty Hospital - Boardman, IncComment on above:Performed By: #### LIPID, CMP #### [facility] [address] [place] [address] Dr. Cody Holliday CALC NORMALSEE BELOWHighland District HospitalComment on above:Result Comment: <100 mg/dl OPTIMAL 100 - 129 mg/dl NEAR OR ABOVE OPTIMAL 130 - 159 mg/dl BORDERLINE HIGH 160 - 189 mg/dl HIGH >190 mg/dl VERY HIGH Performed By: #### LIPID, CMP #### [facility] [address] [place] [address] Dr. Cody NicholsonTriglyceride [Mass/Vol]46 mg/dLNormal<=150The [facility] Comment on above:Performed By: #### LIPID, CMP #### [facility] [address] [place] [address] Dr. Cody GuzmanLDL CALC9.2 mg/dLNoSelect Medical Specialty Hospital - Boardman, IncComment on above: Performed By: #### LIPID, CMP #### [facility] [address] [place] [address] Dr. Cody NicholsonPROF 14(COMP METB)on 36-65-6430Hzptjmc [Mass/Vol]4.0 g/dLNormal 3.4-5.0The [facility] HospitalComment on above:Performed By: #### LIPID, CMP #### [facility] [address] [address] [address] Cody NicholsonAlbumin/Globulin [Mass ratio]1.2 {ratio}NormalThe [facility] HospitalComment on above:Performed By: #### LIPID, CMP #### [facility] [address] [address] [address] Cody Humphreys [Catalytic activity/Vol]86 U/QUvbuuc66-774Dsf [facility] HospitalComment on above:Performed By: #### LIPID, CMP #### [facility] [address] [address] [address] Cody Mercedes [Catalytic activity/Vol]22 U/HBhsltk50-64Trj Salem City Hospitalment on above:Performed By: #### LIPID, CMP #### [facility] [address] [address] [address] Cody Hdezon gap [Moles/Vol]7.3 mmol/LNormalThe [facility] HospitalComment on above:Performed By: #### LIPID, CMP #### [facility] [address] [address] [address] Cody Sorensen [Catalytic activity/Vol]19 U/GTinfsh76-40Qpc [facility] on above:Performed By: #### LIPID, CMP #### [facility] [address] [address] [address] Cody NicholsonBilirubin [Mass/Vol]0.6 mg/dLNormal0.2-1.0The [facility] Comment on above:Performed By: #### LIPID, CMP #### [facility] [address] [address] [address] Cody NicholsonCalcium [Mass/Vol]9.2 mg/dLNormal8.5-10.1The [facility] Comment on above:Performed By: #### LIPID, CMP #### [facility] [address] [address] [address] Cody NicholsonChloride [Moles/Vol]101 mmol/RBbgntm29-995Zns [facility] Comment on above:Performed By: #### LIPID, CMP #### [facility] [address] [address] [address] Cody NicholsonCO2 [Moles/Vol]32.3 mmol/LCritically high21.0-32.0The [facility] HospitalComment on above:Performed By: #### LIPID, CMP #### [facility] [address] [address] [address] Cody NicholsonCreatinine [Mass/Vol]0.88 mg/dLNormal0.55-1.02The [facility] HospitalComment on above:Performed By: #### LIPID, CMP #### [facility] [address] [place] [address] Dr. Cody MonzonGFR-AF JORDANIAN>60Normal>=60The [facility] HospitalComment on above:Performed By: #### LIPID, CMP #### [facility] [address] [place] [address] Dr. Cody MonzonGFR-NON AF JORDANIAN>60Normal>=60The [facility] HospitalComment on above:Performed By: #### LIPID, CMP #### [facility] [address] [place] [address] Dr. Cody NicholsonGlobulin (S) [Mass/Vol]3.3 g/dLNormalThe [facility] HospitalComment on above:Performed By: #### LIPID, CMP #### [facility] [address] [place] [address] Dr. Cody NicholsonGlucose [Mass/Vol]145 mg/dLCritically ylob65-259Iir [facility] HospitalComment on above:Performed By: #### LIPID, CMP #### [facility] [address] [place] [address] Dr. Cody NicholsonPotassium [Moles/Vol]3.6 mmol/LNormal3.5-5.1The [facility] Comment on above:Performed By: #### LIPID, CMP #### [facility] [address] [place] [address] Dr. Cody NicholsonProtein [Mass/Vol]7.3 g/dLNormal6.4-8.2[facility] Comment on above:Performed By: #### LIPID, CMP #### [facility] [address] [place] [address] Dr. Cody NicholsonSodium [Moles/Vol]137 mmol/HPmzcas084-681Gpy [facility] Comment on above:Performed By: #### LIPID, CMP #### [facility] [address] [place] [address] Dr. Cody Jang nitrogen [Mass/Vol]22.0 mg/dLCritically high7.0-18.0[facility] HospitalComment on above:Performed By: #### LIPID, CMP #### [facility] [address] [place] [address] Dr. Cody Jang nitrogen/Creatinine [Mass ratio]25.0 mg/mgNormOhioHealth Riverside Methodist HospitalComment on above:Performed By: #### LIPID, CMP #### [facility] [address] [place] [address] Dr. Cody Partida BREAST LEFT LIMITEDon 53-95-4934RT BREAST LEFT LIMITEDPatient: RAMY MADRIGAL Exam Date: 12/15/2021 : 1935 Gender:F Ordering : DR. SINDHU CAN M.D. Admission #: [id number] Family : Order #: [id number] CLICK HERE TO VIEW EXAM RADIOLOGY REPORT [...] by: Abundio Menon MD on 12/15/2021 at 11:38[facility] BASIC METABOLIC PANELon 50-61-5495Ylgwddt [Mass/Vol]8.0 mg/dLLow8.6-10.3The [facility] Medical CenterComment on above:Order Comment: No: Do not add to previous drawPerformed By: #### [id number] #### [facility] [address] [place] [address], USAChloride [Moles/Vol]108 mmol/PYnih23-766Yvo [facility] CenterComment on above:Order Comment: No: Do not add to previous drawPerformed By: #### [id number] #### [facility] [address] [place] [address], USACO2 [Moles/Vol]25 mmol/ZUooges14-16Kev [facility] CenterComment on above:Order Comment: No: Do not add to previous draw Performed By: #### [id number] #### [facility] [address] [place] [address], USACreatinine [Mass/Vol]0.75 mg/dLNormal0.60-1.20The [facility] CenterComment on above:Order Comment: No: Do not add to previous drawPerformed By: #### [id number] #### [facility] [address] [place] [address], USAGFR/1.73 sq M.predicted among non-blacks MDRD (S/P/Bld) [Vol rate/Area]mL/min/{1.73_m2}Normal>60The [facility] Comment on above:Order Comment: No: Do not add to previous drawResult Comment: The [facility]'s estimated glomerular filtration rate (eGFR) will no [...] not disproportionately affect any one group of individuals.Performed By: #### [id number] #### [facility] [address] [place] [address], USAGlucose [Mass/Vol]95 mg/sNJsftje60-986Omd [facility] CenterComment on above:Order Comment: No: Do not add to previous drawPerformed By: #### [id number] #### [facility] [address] [place] [address], USAPotassium [Moles/Vol]4.2 mmol/LNormal3.5-5.1The [facility] CenterComment on above:Order Comment: No: Do not add to previous drawPerformed By: #### 06672 #### [facility] [address] [place] [address], USASodium [Moles/Vol]139 mmol/SMjtxbn220-492Ipx [facility] CenterComment on above:Order Comment: No: Do not add to previous drawPerformed By: #### 55379 #### [facility] [address] [address], USAUrea nitrogen [Mass/Vol]13 mg/dLNormal7-25The [facility] CenterComment on above:Order Comment: No: Do not add to previous drawPerformed By: #### [id number] #### [facility] [address] [facility] [place] [address], USACBC COMPLETE BLOOD COUNTon 91-57-4330Rxexyrefaft distribution width (RBC) [Ratio]13.2 %Tnokko29.5-15.0The [facility] Medical CenterComment on above:Order Comment: No: Do not add to previous draw Performed By: #### 34865 #### [facility] [address] [place] [address], USAHematocrit (Bld) [Volume fraction]32.8 %Low36.0-45.0The [facility] Medical CenterComment on above:Order Comment: No: Do not add to previous drawPerformed By: #### 84678 #### [facility] [address] [place] [id number], [facility] HOSPITALHemoglobin (Bld) [Mass/Vol]10.8 g/dLLow12.0-15.0The [facility] CenterComment on above:Order Comment: No: Do not add to previous drawPerformed By: #### 26454 #### [facility] [address] [place] [address], [facility] MUS[facility]EEH (RBC) [Entitic mass]28.6 uqQfxroj58.0-33.0The [facility] CenterComment on above:Order Comment: No: Do not add to previous drawPerformed By: #### 82423 #### [facility] [address] [place] [address], [facility] HOSPITALMCHC (RBC) [Mass/Vol]32.9 g/vXDxvpbd43.0-35.0The [facility] CenterComment on above:Order Comment: No: Do not add to previous drawPerformed By: #### 15643 #### [facility] [address] [place] [address], [facility] HOSPITALMCV (RBC) [Entitic vol]87.0 jIKyzjoi96.0-98.0The [facility] CenterComment on above:Order Comment: No: Do not add to previous drawPerformed By: #### [id number] #### [facility] [address] [place] [address], USANucleated RBC/100 WBC (Bld) [Ratio]0 %Normal0-0The [facility] CenterComment on above:Order Comment: No: Do not add to previous drawPerformed By: #### [id number] #### [facility] [address] [place] [address], USAPLAT PJE871 10*3/zZTpxvtt298-555Bjp [facility] CenterComment on above:Order Comment: No: Do not add to previous draw Performed By: #### 24241 #### [facility] [address] [place] [address], USARBC (Bld) [#/Vol]3.77 10*6/uLLow3.80-5.00The [facility] CenterComment on above:Order Comment: No: Do not add to previous drawPerformed By: #### 47114 #### [facility] [address] [place] [address], USAWBC (Bld) [#/Vol]11.34 10*3/uLHigh4.00-10.60The [facility] CenterComment on above:Order Comment: No: Do not add to previous drawPerformed By: #### 50705 #### [facility] [address] [place] [address], USAMAGNESIUM BLOODon 54-17-5046Rtetolwkn [Mass/Vol]1.8 mg/dL Low1.9-2.7The [facility] CenterComment on above:Order Comment: No: Do not add to previous drawPerformed By: #### 33815 #### [facility] [address] [place] [address], USAOperative Reporton 71-86-7918Ezlgdmmip ReportMR#: [id number] [facility] Pt. 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 OPERATION: 1. Left mini thoracotomy and repair of right ventricular perforation. 2. Removal of right ventricular lead. 3. Excisional debridement of pacemaker pocket. 4. Insertion of right ventricular lead. [employer]: [place]. ANESTHESIA: General with double-lumen endotracheal [...] Can MD Date Trans: 11/30/2021 10:23 P/roya DN_JN:[id number] cc: Seven Palmer M.D. [address], [address] [facility] [id number] Clinic Union Hospital GLUCOSE LAB on 05-23-0077Yuzxrwc [Mass/Vol]100 mg/wWDrokme53-375YjzSelect Medical Specialty Hospital - Cleveland-FairhillComment on above:Performed By: #### [id number] #### [facility] [address] [facility] [place] [address], USAGlucose [Mass/Vol]87 mg/wIJdwjcz55-068TwbSelect Medical Specialty Hospital - Cleveland-FairhillComment on above:Performed By: #### 99511 ####[facility] [place] [address], USAPORTABLE CHEST 1 VIEWon 35-56-3209LGTLITFG CHEST 1 VIEWUnProMedica Def[facility] Department of Radiology [address] [place] [address] Patient Name: RAMY MADRIGAL : 1935 Sex: F Age: Race: White Pt. Location: [address] [place] [address] Patient Status: I Ordered Date: 12/01/2021 5:00:00 [...] effusion. Electronically signed: Edgar Jenkins. Transcribed by: [email or web address], User Resident: Electronically Signed by: EDGAR JENKINS @ 12/01/2021 07:25 AMNormalThe [facility] Tri[facility] Medical CenterComment on above:Order Comment: Check Pacemaker/AICD Lead PositionBASIC METABOLIC PANELon 20-29-7753Kduedwy [Mass/Vol] 7.8 mg/dLLow8.6-10.3The [facility] Medical CenterComment on above: Order Comment: No: Do not add to previous drawPerformed By: #### 11569 ####[facility] [place] [address], [facility] Chloride [Moles/Vol]105 mmol/PHvfelm40-111Iyk [facility] CenterComment on above:Order Comment: No: Do not add to previous drawPerformed By: #### 32952 ####[facility] [place] [address], USACO2 [Moles/Vol]23 mmol/CArybcw52-32Drc [facility] CenterComment on above:Order Comment: No: Do not add to previous draw Performed By: #### 36772 ####[facility] [place] [address], USACreatinine [Mass/Vol]0.85 mg/dLNormal0.60-1.20The [facility] CenterComment on above:Order Comment: No: Do not add to previous drawPerformed By: #### 27859 ####[facility] [facility] [address], USAGFR/1.73 sq M.predicted among non- blacks MDRD (S/P/Bld) [Vol rate/Area]mL/min/{1.73_m2}Normal>60The [facility] CenterComment on above:Order Comment: No: Do not add to previous drawResult Comment: The [facility]'s estimated glomerular filtration rate (eGFR) will no [...] not disproportionately affect any one group of individuals.Performed By: #### 92367 ####[facility] [facility] [address], USAGlucose [Mass/Vol]164 mg/dLHigh 70-100The [facility] CenterComment on above:Order Comment: No: Do not add to previous drawPerformed By: #### 31525 ####[facility] [place] [address], USAPotassium [Moles/Vol]3.5 mmol/LNormal3.5-5.1The [facility] CenterComment on above:Order Comment: No: Do not add to previous drawPerformed By: #### 40532 ####[facility] [place] [address], USASodium [Moles/Vol]137 mmol/SEumgsr957-806Ghd [facility] CenterComment on above:Order Comment: No: Do not add to previous drawPerformed By: #### 45833 ####[facility] [place] [address], [facility] Urea nitrogen [Mass/Vol]14 mg/dLNormal7-25The [facility] CenterComment on above:Order Comment: No: Do not add to previous drawPerformed By: #### 45299 ####[facility] [facility] [place] [address], USACHEST AND LATERALon 00-79-1198XZUGX AND [facility] Department of Radiology [address] [place] [id number] Patient Name: RAMY MADRIGAL : 1935 Sex: F Age: Race: White Pt. Location: [address] [place] [address] Patient Status: I Ordered Date: 11/30/2021 11:50:00 [...] pleural effusions. Congestion is improved. Lower lobe infiltrate/atelectasis still present. No pneumothorax. IMPRESSION: No pneumothorax after chest tube removal. Electronically signed: Johnson Cornelius. Transcribed by: [email or web address], User Resident: Electronically Signed by: JHONSON CORNELIUS @ 11/30/2021 12:47 PMNormalThe [facility] Tri[facility] Medical CenterComment on above:Order Comment: Check Pacemaker/AICD Lead PositionMAGNESIUM BLOODon [id number] [Mass/Vol]1.8 mg/dLLow1.9-2.7The [facility] Medical CenterComment on above:Order Comment: DissectionPerformed By: #### [id number] ####[facility] [place] [address], USAPOC GLUCOSE LABon 11-30-2021 Glucose [Mass/Vol]114 mg/zHKzuu22-157Epb [facility] Comment on above:Performed By: #### [id number] #### [facility] [address] [place] [address], USAGlucose [Mass/Vol]139 mg/wSVoyq25-275Yui [facility] CenterComment on above:Performed By: #### [id number] #### [facility] [address] [place] [address], USAGlucose [Mass/Vol]147 mg/jOWnig35-766Pbq [facility] CenterComment on above:Performed By: #### [id number] ####[facility] [place] [address], USAGlucose [Mass/Vol] 138 mg/fMAdto66-478Mrl [facility] CenterComment on above: Performed By: #### 35471 ####[facility] [place] [address], USAPORTABLE CHEST 1 VIEWon [id number] CHEST 1 VIEW [facility] Department of Radiology [address] [facility] [place] [address] Patient Name: RAMY MADRIGAL : 1935 Sex: F Age: Race: White Pt. Location: [address] [place] [address] Patient Status: I Ordered Date: 11/30/2021 4:40:00 [...] effusion. Electronically signed: Amy Melgar. Transcribed by: [email or web address], User Resident: Electronically Signed by: AMY MELGAR @ 11/30/2021 05:40 PMNormalThe [facility] CenterComment on above:Order Comment: Pneumothorax PORTABLE CHEST 1 [facility]UnPro[facility] Department of Radiology [address] [place] [id number] Patient Name: RAMY MADRIGAL : 1935 Sex: F Age: Race: White Pt. Location: [address] [place] [address] Patient Status: I Ordered Date: 11/30/2021 5:00:00 [...] CIED. Electronically signed: Bryce Norman. Transcribed by: [email or web address], User Resident: Electronically Signed by: BRYCE NORMAN @ 11/30/2021 02:48 PMNormalThe [facility] Medical CenterComment on above:Order Comment: Check Pacemaker/AICD Lead PositionAPTTon 85-62-7855sHGJ Coag (Bld) [Time]36.4 sHigh25.0-35.0The [facility] Medical CenterComment on above:Order Comment: No: Do not add to previous drawResult Comment: ALL RESULTS MUST BE INTERPRETED WITH RESPECT TO BLOOD DRAWING ARTIFACT OR DILUTION ERROR OF ANTICOAGULANT AT THE TIME OF SAMPLING. THE APTT SHOULD NOT BE USED TO MONITOR UNFRACTIONATED HEPARIN THERAPY, THIS LABORATORY NO LONGER HAS AN ESTABLISHED THERAPEUTIC RANGE BASED ON THE APTT. IT IS RECOMMENDED THAT THE UFH - HEPARIN ASSAY (ANTI-XA ACTIVITY) BE USED FOR THIS PURPOSE.Performed By: #### [id number] #### [facility] [address] [place] [address], USABASIC METABOLIC PANELon 22-03-5609Lttqwog [Mass/Vol]8.0 mg/dLLow8.6-10.3The [facility] CenterComment on above:Order Comment: No: Do not add to previous drawPerformed By: #### [id number] #### [facility] [address] [place] [address], USAChloride [Moles/Vol]106 mmol/SPoxyaj32-746Osw [facility] CenterComment on above:Order Comment: No: Do not add to previous drawPerformed By: #### [id number] #### [facility] [address] [address], USACO2 [Moles/Vol]25 mmol/TDbcozl93-95Tgv [facility] CenterComment on above:Order Comment: No: Do not add to previous draw Performed By: #### [id number] #### [facility] [address] [facility] [place] [address], USACreatinine [Mass/Vol]0.74 mg/dLNormal0.60-1.20The [facility] CenterComment on above:Order Comment: No: Do not add to previous drawPerformed By: #### 97781 #### [facility] [address] [place] [address], USAGFR/1.73 sq M.predicted among non-blacks MDRD (S/P/Bld) [Vol rate/Area]mL/min/{1.73_m2}Normal>60The [facility] Comment on above:Order Comment: No: Do not add to previous drawResult Comment: The [facility]'s estimated glomerular filtration rate (eGFR) will no [...] not disproportionately affect any one group of individuals.Performed By: #### [id number] #### [facility] [address] [place] [address], USAGlucose [Mass/Vol]136 mg/eLRvtx91-083Sgd [facility] CenterComment on above:Order Comment: No: Do not add to previous drawPerformed By: #### [id number] #### [facility] [address] [place] [address], USAPotassium [Moles/Vol]2.9 mmol/LLow3.5-5.1The [facility] CenterComment on above:Order Comment: No: Do not add to previous drawPerformed By: #### [id number] #### [facility] [address] [place] [address], USASodium [Moles/Vol]141 mmol/MIgekgp095-333Pfy [facility] CenterComment on above:Order Comment: No: Do not add to previous drawPerformed By: #### [id number] #### [facility] [address] [place] [address], USAUrea nitrogen [Mass/Vol]10 mg/dLNormal7-25The [facility] CenterComment on above:Order Comment: No: Do not add to previous drawPerformed By: #### 34070 #### [facility] [address] [facility] [place] [place] [address], USACBC W/DIFFon 73-08-7727ZRD IMM GRANS0.0 10*3/uLNormal 0.0-0.2The [facility] Medical CenterComment on above:Performed By: #### 67067 #### [facility] [address] [facility] [place] [address], USAABS NEUTROPHILS7.3 10*3/uLNormal1.6-7.6The [facility] CenterComment on above:Performed By: #### 60144 #### [facility] [address] [facility] [place] [address], USABasophils (Bld) [#/Vol]0.1 10*3/uLNormal0.0-0.2The [facility] CenterComment on above:Performed By: #### 03477 #### [facility] [address] [facility] [place] [address], USABasophils/100 WBC (Bld)0.6 %Normal0.0-1.0The [facility] CenterComment on above:Performed By: #### 94671 #### [facility] [address] [facility] [place] [address], USAEosinophils (Bld) [#/Vol]0.2 10*3/uLNormal0.0-0.5The [facility] CenterComment on above:Performed By: #### 46168 #### [facility] [address] [facility] [place] [address], USAEosinophils/100 WBC (Bld)1.7 %Normal0.0-6.0The [facility] Medical CenterComment on above:Performed By: #### 91385 #### [facility] [address] [place] [address], USAErythrocyte distribution width (RBC) [Ratio]12.3 %Normal 11.5-15.0The [facility] Medical CenterComment on above:Performed By: #### 48787 #### [facility] [address] [place] [address], USAHematocrit (Bld) [Volume fraction]36.4 %Qhglwm55.0-45.0The [facility] CenterComment on above:Performed By: #### 12743 #### [facility] [address] [facility] [address], USAHemoglobin (Bld) [Mass/Vol]12.2 g/wMXexvub91.0-15.0The [facility] CenterComment on above:Performed By: #### 33400 #### [facility] [address] [facility] [place] [address], USAIMMATURE GRANS0.3 %Normal0.0-1.0The [facility] CenterComment on above:Performed By: #### 53413 #### [facility] [address] [place] [address], USALymphocytes (Bld) [#/Vol]2.3 10*3/uLNormal1.2-4.0The [facility] CenterComment on above:Performed By: #### 31720 #### [facility] [address] [facility] [place] [address], USALymphocytes/100 WBC (Bld)21.8 %Nojkjh69.0-45.0The [facility] CenterComment on above:Performed By: #### 58925 #### [facility] [address] [place] [address], USAMCH (RBC) [Entitic mass]28.8 huMejyqe34.0-33.0The [facility] CenterComment on above:Performed By: #### 63227 #### [facility] [address] [place] [id number], [facility] MUS[facility]EEHC (RBC) [Mass/Vol]33.5 g/vVClcjto42.0-35.0The [facility] CenterComment on above:Performed By: #### [id number] #### [facility] [address] [place] [address], [facility] HOSPITALMCV (RBC) [Entitic vol]85.8 vQUlwdqu82.0-98.0The [facility] CenterComment on above:Performed By: #### 87420 #### [facility] [address] [place] [address], [facility] HOSPITALMonocytes (Bld) [#/Vol]0.7 10*3/uLNormal0.1-1.0The [facility] CenterComment on above:Performed By: #### 48533 #### [facility] [address] [place] [address], [facility] HOSPITALMONOS6.9 %Normal5.0-12.0The [facility] CenterComment on above:Performed By: #### 22931 #### [facility] [address] [place] [address], [facility] HOSPITALNeutrophils/100 WBC (Bld)68.7 %Zehwkw04.0-72.0The [facility] CenterComment on above:Performed By: #### 01499 #### [facility] [address] [place] [address], USANucleated RBC/100 WBC (Bld) [Ratio]0 %Normal0-0The [facility] CenterComment on above:Performed By: #### 33312 #### [facility] [address] [place] [address], USAPLAT [id number] 10*3/gUMnwxgi510-155Ouz [facility] CenterComment on above:Performed By: #### 48500 #### [address] [place] [address], USARBC (Bld) [#/Vol]4.24 10*6/uLNormal3.80-5.00The [facility] CenterComment on above:Performed By: #### [id number] #### [address] [place] [address], USAWBC (Bld) [#/Vol]10.64 10*3/uLHigh4.00-10.60The [facility] CenterComment on above:Performed By: #### 94111 #### [address] [address], USACHEST 1 on 95-56-2692CFLCB 1 [facility] Department of Radiology [address] [place] [id number] Patient Name: RAMY MADRIGAL : 1935 [...] chest. Electronically signed: Johnson Cornelius. Transcribed by: [email or web address], User Resident: Electronically Signed by: JOHNSON CORNELIUS @ 11/30/2021 08:46 AMNormalThe [facility] CenterComment on above:Order Comment: Check Pacemaker/AICD Lead PositionMAGNESIUM BLOODon 51-79-0017Qmxvpwtgr [Mass/Vol]1.6 mg/dLLow1.9-2.7The [facility] CenterComment on above:Performed By: #### [id number] #### [facility] [address] [place] [address], USAPHOSPHORUS BLOODon 17-49-5491Lfoadseby [Mass/Vol]3.1 mg/dL Normal2.5-5.0The [facility] CenterComment on above:Performed By: #### 62138 #### [facility] [address] [place] [address], [place]APOC GLUCOSE LABon 85-16-2955Vknwfac [Mass/Vol]174 mg/dLHigh 70-100The [facility] CenterComment on above:Performed By: #### 50182 #### [facility] [address] [place] [address], USAGlucose [Mass/Vol]120 mg/fTCove62-706Kcf [facility] CenterComment on above:Performed By: #### 33557 ####[facility] [place] [address], USAGlucose [Mass/Vol] 115 mg/tJPjdf57-179Bfo [facility] CenterComment on above: Performed By: #### 61634 ####[facility] [place] [address], USAPORTABLE CHEST 1 VIEWon 15-47-3329ECVJNJFW CHEST 1 VIEW [facility] Department of Radiology [address] [place] [address] Patient Name: RAMY MADRIGAL : [...] No Electronically signed: Mikael Gresham. Transcribed by: [email or web address], User Resident: Electronically Signed by: MIKAEL GRESHAM @ 11/29/2021 12:25 PMNormalThe [facility] CenterComment on above:Order Comment: Pneumothorax, patient in PACUPROTHROMBIN TIMEon 30-41-6120JNH Coag (PPP) [Relative time]1.18 {INR}High0.91-1.16The [facility] CenterComment on above:Result Comment: ACCCP RECOMMENDED INR FOR WARFARIN THERAPY ------- CONDITION INR PROPHYLAXIS OF VENOUS THROMBOSIS 2-3 (HIGH-RISK SURGERY) TREATMENT OF VENOUS THROMBOSIS 2-3 TREATMENT OF PULMONARY EMBOLISM 2-3 PREVENTION OF SYSTEMIC EMBOLISM: 2-3 ACUTE MYOCARDIAL INFARCTION TISSUE HEART VALVES VALVULAR HEART DISEASE ATRIAL FIBRILLATION RECURRENT SYSTEMIC EMBOLISM MECHANICAL HEART VALVE 2.5-3.5 FROM: ORAL ANTICOAGULANTS. MECHANISM OF ACTION, CLINICAL EFFECTIVENESS, AND OPTIMAL THERAPEUTIC RANGE. CHEST 1995;108:231S-246S.Performed By: #### [id number] #### [facility] [address] [place] [address], USAPT Coag (PPP) [Time]14.9 sHigh12.3-14.8The [facility] CenterComment on above:Result Comment: ALL RESULTS MUST BE INTERPRETED WITH RESPECT TO BLOOD DRAWING ARTIFACT OR DILUTION ERROR OF ANTICOAGULANT AT THE TIME OF SAMPLING.Performed By: #### [id number] #### [facility] [address] [place] [address], [facility] HOSPITALRB'S 2 UNITSon [id number] INTERP 1CDiley Ridge Medical CenterComment on above:Performed By: #### 67699 ####[facility] [place] [address], [place] CROSSMATCH INTERP 2CDiley Ridge Medical CenterComment on above:Performed By: #### 98682 ####[facility] [facility] [address], USAPRODUCT CODE [id number] Parma Medical CenterComment on above:Performed By: #### 94494 ####[facility] [place] [address], USAPRODUCT CODE 2 [id number] Parma Medical CenterComment on above:Performed By: #### 49579 ####[facility] [address], USAPRODUCT STATUS 1RSt. [facility] Comment on above:Result Comment: Result changed by IF on 11/29/2021 07:53. The previous value was XM. Result changed by IF on 11/29/2021 10:55. The previous value was IS. Result changed by IF on 12/02/2021 07:38. The previous value was XM.Performed By: #### 39057 ####[facility] [facility] [place] [address], USAPRODUCT STATUS 2RSt. [facility] Hospital Comment on above:Result Comment: Result changed by IF on 11/29/2021 07:53. The previous value was XM. Result changed by IF on 11/29/2021 10:55. The previous value was IS. Result changed by IF on 12/02/2021 07:38. The previous value was XM.Performed By: #### [id number] ####[facility] [place] [address], USAUNIT ABO 1Mer[facility] West HospitalComment on above:Performed By: #### 31802 ####[facility] [place] [address], USAUNIT ABO 2ONoMetroHealth Parma Medical CenterComment on above:Performed By: #### 56016 ####[facility] [place] [address], USAUNIT ID [id number] NormalSelect Medical Specialty Hospital - Cleveland-FairhillComment on above:Performed By: #### 39672 ####[facility] [place] [address], USAUNIT ID [id number] [facility] Comment on above:Performed By: #### 33737 ####[facility] [place] [address], USAUNIT RH 1PositiveFulton County Health CenterComment on above:Performed By: #### 04985 ####[facility] [place] [address], [place] UNIT RH 2PositiveNoMetroHealth Parma Medical CenterComment on above: Performed By: #### 19076 ####[facility] [facility] [place] [address], [facility]*MRSA/MSSA DNA NASALon 11-26-2021*MRSA/MSSA DNA NASAL Clinical Report: (D) Specimen: NASAL SWAB Collected: 11/26/2021 11:49 Status: Final Last Updated: 11/26/2021 20:24 MSSA DNA (Final) Negative MRSA DNA (Final) NegativeFulton County Health CenterComment on above:Performed By: #### [id number] #### [facility] [address] [facility] [place] [address], [facility]*SARS-CoV-2 COVID-19on 72-03-2242RWST-CoV-2 (COVID-19) RNA YUSEF+probe Ql (Unsp spec)Not detectedNormalNot DetectedThe [facility] CenterComment on above:Order Comment: The Aptima SARS-CoV-2 assay is a nucleic acid amplification test intended for the qualitative detection of RNA from SARS-CoV-2 isolated and purified from nasopharyngeal ([employer] HAND),oropharyngeal (OP), nasal swab, sputum, and bronchoalveolar lavage (BAL) specimens from patients with signs and symptoms of infection who are suspected of COVID-19. Results are for the identification of SARS-CoV-2 RNA. The SARS-CoV-2 RNA is generally detectable during the acute phase of infection. The Aptima SARS-CoV-2 Assay on the Masher system is intended for use by laboratory personnel specifically instructed and trained in the operation of the Smava and Smava Fusion system. The Aptima SARS-CoV-2 assay is [...] with clinical observations, patient history, and epidemiological information.Performed By: #### [id number] #### [facility] [address] [facility]. [address] [phone] Coag (Bld) [Time]33.5 sNormal 25.0-35.0The [facility] CenterComment on above:Result Comment: ALL RESULTS MUST BE INTERPRETED WITH RESPECT TO BLOOD DRAWING ARTIFACT OR DILUTION ERROR OF ANTICOAGULANT AT THE TIME OF SAMPLING. THE APTT SHOULD NOT BE USED TO MONITOR UNFRACTIONATED HEPARIN THERAPY, THIS LABORATORY NO LONGER HAS AN ESTABLISHED THERAPEUTIC RANGE BASED ON THE APTT. IT IS RECOMMENDED THAT THE UFH - HEPARIN ASSAY (ANTI-XA ACTIVITY) BE USED FOR THIS PURPOSE.Performed By: #### 89468, 80840 ####[facility] [place] [address], [place] BASIC METABOLIC PANELon 10-73-0524Hijnlxt [Mass/Vol]9.8 mg/dLNormal8.6-10.3The [facility] CenterComment on above:Performed By: #### 50495 #### [facility] [address] [place] [address], USAChloride [Moles/Vol]96 mmol/LLlj45-818Spd [facility] CenterComment on above:Performed By: #### 79864 #### [facility] [address] [place] [address], USACO2 [Moles/Vol]29 mmol/MHlfmmx45-07Ftm [facility] CenterComment on above:Performed By: #### 94264 #### [facility] [address] [place] [address], USACreatinine [Mass/Vol]1.04 mg/dLNormal0.60-1.20The [facility] CenterComment on above:Performed By: #### 43722 #### [facility] [address] [place] [address], USAeGFR- non- Aipgcsul29 ml/min/1.73sq mAbnormal>60The [facility] CenterComment on above:Result Comment: Calculation may not be valid for patients over 70 yearsPerformed By: #### [id number] #### [facility] [address] [place] [address], USAGFR/1.73 sq M.predicted among blacks MDRD (S/P/Bld) [Vol rate/Area]mL/min/{1.73_m2}Normal>60The [facility] Comment on above:Result Comment: Calculation may not be valid for patients over 70 yearsPerformed By: #### 99394 #### [facility] [address] [facility] [place] [address], USAGlucose [Mass/Vol]126 mg/lBSksu08-876Xfu [facility] CenterComment on above:Performed By: #### 02389 #### [facility] [address] [facility] [address], USAPotassium [Moles/Vol]3.6 mmol/LNormal3.5-5.1The [facility] CenterComment on above:Performed By: #### 61493 #### [facility] [address] [facility] [address], USASodium [Moles/Vol]137 mmol/WQkprdg763-688Clk [facility] CenterComment on above:Performed By: #### 36477 #### [facility] [address] [facility] [place] [address], USAUrea nitrogen [Mass/Vol]16 mg/dLNormal7-25The [facility] CenterComment on above:Performed By: #### 05438 #### [facility] [address] [facility] [place] [address], [facility] HOSPITALCBC W/DIFFon 66-09-6775HIE IMM GRANS0.0 10*3/uLNormal 0.0-0.2The [facility] CenterComment on above:Performed By: #### 57948 ####[facility] [facility] [place] [address], USAABS NEUTROPHILS7.0 10*3/uLNormal1.6-7.6The [facility] CenterComment on above:Performed By: #### 27102 ####[facility] [facility] [place] [address], USABasophils (Bld) [#/Vol] 0.1 10*3/uLNormal0.0-0.2The [facility] CenterComment on above: Performed By: #### 15696 ####[facility] [facility] [place] [address], [facility] HOSPITALBasophils/100 WBC (Bld)1.2 %High0.0-1.0The [facility] CenterComment on above:Performed By: #### 62018 ####[address] [place] [address], [facility] HOSPITALEosinophils (Bld) [#/Vol]0.3 10*3/uLNormal0.0-0.5The [facility] Comment on above:Performed By: #### [id number] ####[address] [place] [address], [facility] HOSPITALEosinophils/100 WBC (Bld)2.5 % Normal0.0-6.0The [facility] CenterComment on above:Performed By: #### 13633 ####[address] [place] [address], [facility] TINGLEY HOSPITALErythrocyte distribution width (RBC) [Ratio]12.3 %Vrsewq40.5-15.0 The [facility] CenterComment on above:Performed By: #### 81979 ####[address] [place] [address], [facility] Hematocrit (Bld) [Volume fraction]48.0 %High36.0-45.0The [facility] CenterComment on above:Performed By: #### 53979 ####[address] [place] [address], [facility] HOSPITALHemoglobin (Bld) [Mass/Vol]15.5 g/mRMmkf14.0-15.0The [facility] CenterComment on above:Performed By: #### 359[address] ####[place] [address], [facility] TINGLEY HOSPITALIMMATURE GRANS0.2 %Normal0.0-1.0The [facility] CenterComment on above:Performed By: #### 56877 ####[facility] [facility] [place] [place] [address], [facility] Lymphocytes (Bld) [#/Vol]2.7 10*3/uLNormal1.2-4.0The [facility] CenterComment on above:Performed By: #### 40787 ####[address] [place] [address], [facility] T[facility] HOSPITALLymphocytes/100 WBC (Bld) 24.0 %Gaamfy84.0-45.0The [facility] CenterComment on above: Performed By: #### 55701 ####[address] [place] [address], [facility] T[facility] HOSPITALMCH (RBC) [Entitic mass]28.3 bdZhzhis58.0-33.0The [facility] CenterComment on above:Performed By: #### [id number] ####[address] [place] [address], [facility] MCHC (RBC) [Mass/Vol]32.3 g/aZMxkniq99.0-35.0The [facility] CenterComment on above:Performed By: #### 85839 ####[address] [place] [address], [facility]OS[facility]ITALMCV (RBC) [Entitic vol]87.8 fL Qvvglv80.0-98.0The [facility] CenterComment on above:Performed By: #### 49781 ####[address] [place] [address], [facility]OS[facility]ITALMonocytes (Bld) [#/Vol]1.0 10*3/uLNormal0.1-1.0The [facility] CenterComment on above:Performed By: #### 33484 ####[address] [place] [address], [facility]ITALMONOS8.6 %Normal 5.0-12.0The [facility] CenterComment on above:Performed By: #### 13024 ####[facility] [place] [address], [facility]OSPITALNeutrophils/100 WBC (Bld)63.5 %Kfjskl57.0-72.0The [facility] CenterComment on above:Performed By: #### 84865 ####[facility] [place] [address], USANucleated RBC/100 WBC (Bld) [Ratio]0 %Normal0-0The [facility] CenterComment on above:Performed By: #### 66399 ####[facility] [place] [address], USAPLAT BXM774 10*3/hIQiqwmg008-992Adj [facility] CenterComment on above:Performed By: #### 97265 ####[facility] [facility] [place] [address], [facility] RBC (Bld) [#/Vol]5.47 10*6/uLHigh3.80-5.00The [facility] CenterComment on above:Performed By: #### 54089 ####[facility] [facility] [place] [address], [facility]OS[facility]ITALWBC (Bld) [#/Vol]11.06 10*3/uL High4.00-10.60The [facility] CenterComment on above:Performed By: #### 62421 ####[facility] [place] [address].[place] [address], USACHEST AND [facility] [id number] AND [facility] Department of Radiology [address] [place] [id number] Patient Name: RAMY MADRIGAL : 1935 Sex: F Age: Race: White Pt. Location: Patient Status: O Ordered Date: 11/26/2021 11:30:00 AM Completed Date: 11/26/2021 11:40 AM Requesting Provider: SINDHU CAN Attending Provider: SINDHU CAN Report Copy To: Signs & Symptoms: T82.190A [facility] compl of cardiac electrode, initial encounter I10 History: Comments: evaluate Exam: CHEST AND LATERAL EXAMINATION: CHEST AND LATERAL 11/26/2021 11:40 AM CLINICAL HISTORY: T82.190A [facility] compl of cardiac electrode, initial encounter I10 [...] the mild vascular congestion. Electronically signed: Holden Salvador. Transcribed by: [email or web address], User Resident: Electronically Signed by: HOLDEN SALVADOR @ 11/26/2021 03:02 PMNUniversity Hospitals Portage Medical CenterComment on above:Order Comment: Check Pacemaker/AICD Lead PositionHEMOGLOBIN A1Con 68-11-6144Jcoqazn [Moles/Vol]126 mmol/LNormalThe [facility] CenterComment on above:Performed By: #### 52511 #### [facility] [address] [facility] [address], WIAZlQ4f (Bld) [Mass fraction]6.0 %Normal4.0-6.0The [facility] CenterComment on above:Performed By: #### 67548 #### [facility] [address] [facility] [address], USAPROTHROMBIN TIMEon 59-11-8819HXJ Coag (PPP) [Relative time] 0.98 {INR}Normal0.91-1.16The [facility] CenterComment on above:Result Comment: ACCCP RECOMMENDED INR FOR WARFARIN THERAPY ------- CONDITION INR PROPHYLAXIS OF VENOUS THROMBOSIS 2-3 (HIGH-RISK SURGERY) TREATMENT OF VENOUS THROMBOSIS 2-3 TREATMENT OF PULMONARY EMBOLISM 2-3 PREVENTION OF SYSTEMIC EMBOLISM: 2-3 ACUTE MYOCARDIAL INFARCTION TISSUE HEART VALVES VALVULAR HEART DISEASE ATRIAL FIBRILLATION RECURRENT SYSTEMIC EMBOLISM MECHANICAL HEART VALVE 2.5-3.5 FROM: ORAL ANTICOAGULANTS. MECHANISM OF ACTION, CLINICAL EFFECTIVENESS, AND OPTIMAL THERAPEUTIC RANGE. CHEST 1995;108:231S-246S.Performed By: #### 53597, 54272 ####[facility] [facility] [place] [place] [address], USAPT Coag (PPP) [Time]13.0 s Uyjxok77.3-14.8The [facility] CenterComment on above:Result Comment: ALL RESULTS MUST BE INTERPRETED WITH RESPECT TO BLOOD DRAWING ARTIFACT OR DILUTION ERROR OF ANTICOAGULANT AT THE TIME OF SAMPLING.Performed By: #### 49774, 66736 ####[facility] [place] [address], USATYPE AND SCREENon 01-38-0370FZZ INTERPRETATIONONoMetroHealth Parma Medical CenterComment on above:Performed By: #### 91507 #### [facility] [address] [place] [address], USARH INTERPRETATIONPositiveNoSouthern Ohio Medical Centere [facility] CenterComment on above:Performed By: #### 69809 #### [facility] [address] [place] [address], USAURINALYSIS REFLEXon 04-00-6942Nbbnnllioa (U)CLEARNormal CLEARThe [facility] CenterComment on above:Performed By: #### 74478 #### [facility] [address] [place] [address], USABilirubin Ql (U)NegativeNormalNEGATIVEThe [facility] CenterComment on above:Performed By: #### 26362 #### [facility] [address] [place] [address], USAColor (U)STRAWAbnormalYELLOWThe [facility] CenterComment on above:Performed By: #### 40540 #### [facility] [address] [place] [address], USAEPISNONE SEENNormalFEW,OCC,NONE SEENThe [facility] CenterComment on above:Performed By: #### 71998 #### [facility] [address] [place] [address], USAGlucose Ql (U)NegativeNormalNEGATIVEThe [facility] CenterComment on above:Performed By: #### 09358 #### [facility] [address] [place] [address], USAHemoglobin Ql (U)SMALLAbnormalNEGATIVEThe [facility] CenterComment on above:Performed By: #### 08673 #### [facility] [address] [place] [address], USAKETONENegativeNormalNEGATIVEThe [facility] CenterComment on above:Performed By: #### 66918 #### [facility] [address] [place] [address], USALEUK ESTERNegativeNormalNEGATIVEThe [facility] CenterComment on above:Performed By: #### 09043 #### [facility] [address] [place] [address], USAMUCUS THREADSOCCAbnormalNONE SEENThe [facility] CenterComment on above:Performed By: #### 31737 #### [facility] [address] [place] [address], USANitrite Ql (U)NegativeNormalNEGATIVEThe [facility] CenterComment on above:Performed By: #### 32260 #### [facility] [address] [place] [address], USApH (U)6.0 [pH]Normal5.0-8.0The [facility] CenterComment on above:Performed By: #### 23800 #### [facility] [address] [place] [address], USAProtein Ql (U)NegativeNormalNEGATIVEThe [facility] CenterComment on above:Performed By: #### 31076 #### [facility] [address] [place] [address], USARBC0-2AbnormalNONE SEENThe [facility] CenterComment on above:Performed By: #### 31316 #### [facility] [address] [place] [address], USASPEC GRAV1.299Ulr0.015-1.020The [facility] CenterComment on above:Performed By: #### 21355 #### [facility] [address] [place] [address], [facility]OSPITALWBC UANONE SEENNormalNONE SEENThe [facility] CenterComment on above:Performed By: #### 55383 #### [facility] [address] [place] [address], [facility]OSPITALHEMOGLOBINon 26-37-2715Uvdehbrxwn (Bld) [Mass/Vol]14.3 g/dL Ilqbmx18.0-16.0The [facility] HospitalComment on above:Performed By: #### HGB #### [facility] [address] [address] [address] Cody NicholsonXR CHEST 2 Von 23-91-9861JE CHEST 2 VEXAMINATION: XR CHEST 2 V HISTORY: Pacemaker electrode [...] Electronically authenticated by: AMY DENNISON Date: 2021-09-21 14:14[facility] HospitalBASI METABOLIC PANELon 52-04-7756Mmfoguq [Mass/Vol]7.9 mg/dL Low8.6-10.3The [facility] CenterComment on above:Order Comment: No: Do not add to previous drawPerformed By: #### 57016, 02023 ####[facility] [facility] [address], [facility] Chloride [Moles/Vol]106 mmol/ZEcggbf30-629Nul [facility] CenterComment on above:Order Comment: No: Do not add to previous drawPerformed By: #### 57888, 17991 ####[facility] [place] [address], USACO2 [Moles/Vol]23 mmol/MNxjmep41-68Zqj [facility] CenterComment on above:Order Comment: No: Do not add to previous drawPerformed By: #### 46257, 77200 ####[facility] [place] [address], USACreatinine [Mass/Vol]0.74 mg/dLNormal 0.60-1.20The [facility] CenterComment on above:Order Comment: No: Do not add to previous drawPerformed By: #### 62202, 62152 ####[facility] [place] [address], USAGFR/1.73 sq M.predicted among blacks MDRD (S/P/Bld) [Vol rate/Area]mL/min/{1.73_m2}Normal>60 The [facility] CenterComment on above:Order Comment: No: Do not add to previous drawResult Comment: Calculation may not be valid for patients over 70 yearsPerformed By: #### 86580, 67746 ####[facility] [place] [address], USAGFR/1.73 sq M.predicted among non-blacks MDRD (S/P/Bld) [Vol rate/Area]mL/min/{1.73_m2}Normal>60The [facility] CenterComment on above:Order Comment: No: Do not add to previous drawResult Comment: Calculation may not be valid for patients over 70 yearsPerformed By: #### 14060, 37960 ####[facility] [place] [address], USAGlucose [Mass/Vol]99 mg/dLNormal 70-100The [facility] CenterComment on above:Order Comment: No: Do not add to previous drawPerformed By: #### 49530, 58404 ####[facility] [place] [address], USAPotassium [Moles/Vol]3.6 mmol/LNormal3.5-5.1The [facility] CenterComment on above:Order Comment: No: Do not add to previous drawPerformed By: #### 21927, 55810 ####[facility] [place] [address], USASodium [Moles/Vol]137 mmol/KMltcvn300-507Nej [facility] CenterComment on above:Order Comment: No: Do not add to previous draw Performed By: #### 70861, 39586 ####[facility] [facility] [address], USAUrea nitrogen [Mass/Vol]14 mg/dLNormal7-25The [facility] CenterComment on above:Order Comment: No: Do not add to previous drawPerformed By: #### 84155, 03547 ####[facility] [facility] [place] [address], USACHEST AND LATERAL 96-45-9328MAXDX AND [facility] Department of Radiology [address] [place] [id number] Patient Name: RAMY MADRIGAL : 1935 Sex: F Age: Race: White Pt. Location: [id number] Patient Status: I Ordered Date: 08/06/2021 10:25:00 [...] pacemaker. Electronically signed: Omero Patten. Transcribed by: [email or web address], User Resident: Electronically Signed by: OMERO PATTEN @ 08/06/2021 11:14 AMNormalThe [facility] CenterComment on above:Order Comment: Check Pacemaker/AICD Lead PositionMAGNESIUM BLOODon 56-56-6617Wbxjwzmaf [Mass/Vol]1.8 mg/dLLow1.9-2.7The [facility] CenterComment on above:Order Comment: No: Do not add to previous drawPerformed By: #### 07061, 42373 ####[facility] [place] [address], [facility] CREATININE BLOODon 84-98-0222Ucdcqoqvjv [Mass/Vol]0.87 mg/dLNormal0.60-1.20The [facility] CenterComment on above:Order Comment: No: Do not add to previous drawMissedPerformed By: #### 82121 #### [facility] [address] [place] [address], [facility]OSPITALGFR/1.73 sq M.predicted among blacks MDRD (S/P/Bld) [Vol rate/Area]mL/min/{1.73_m2}Normal>60The [facility] Comment on above:Order Comment: No: Do not add to previous drawMissedResult Comment: Calculation may not be valid for patients over 70 yearsPerformed By: #### 57070 #### [facility] [address] [facility] [place] [address], USAGFR/1.73 sq M.predicted among non-blacks MDRD (S/P/Bld) [Vol rate/Area]mL/min/{1.73_m2}Normal>60The [facility] Comment on above:Order Comment: No: Do not add to previous drawMissedResult Comment: Calculation may not be valid for patients over 70 yearsPerformed By: #### 12883 #### [facility] [address] [facility] [place] [address], USACardiovascular Lab Reporton 44-56-5640Ctouaekdqfxktc Lab ReportUnCleveland Clinic Foundation [facility] #: [id number] Department of Physician: Luis Fernando Talbot M.D. Medicine Service Date: 08/04/2021 Division of Birthdate: 1935 Cardiology Room #: [id number] Adult Cardiovascular Services [place] [address] Cardiovascular Laboratory Report INDICATIONS FOR PACEMAKER IMPLANTATION: [...] Conscious sedation. 5. Fluoroscopy. Electronically Signed by: Luis Fernando Talbot M.D. 08/05/2021 12:20 P Luis Fernando Talbot M.D. Date Dict: 08/04/2021/02:40 P/Luis Fernando Talbot M.D. Date Trans: 08/05/2021 05:21 A/roya CHILDERS_JN:[id number]. Elizabeth HospitalCardiovascular Lab ReportUnCleveland Clinic Foundation Patient Name: Ramy Madrigal [facility] MR #: [id number] Physician: Serena Wallis of MD [facility] Medicine Service Date: 08/04/2021 Division of Birthdate: 1935 Cardiology Room #: [id number] Adult Cardiovascular Services [facility] [address] [facility]. [place] [address] Cardiovascular Laboratory Report PROCEDURES PERFORMED: 1. Selective [...] Palmer MD Date Trans: 08/05/2021 04:59 A/roya DN_JN:[id number] County Health CenterTROPONIN-Ion 89-79-8444Lqxllcdg I.cardiac [Mass/Vol]0.06 ng/mLHigh0.00-0.04The [facility] CenterComment on above:Order Comment: Yes: Add to Previous draw if ableResult Comment: REFERENCE RANGES: 0.00 - 0.04 ng/ml NORMAL 0.05 - 0.50 ng/ml INDETERMINATE > 0.50 ng/ml CONSISTENT WITH AN M.I.Performed By: #### 72400 #### [facility] [address] [place] [address], USABASIC METABOLIC PANELon 98-44-9209Fbibrqe [Mass/Vol]8.1 mg/dLLow8.6-10.3The [facility] CenterComment on above:Order Comment: No: Do not add to previous drawPerformed By: #### 12795, 04130, 53478, 29839 ####[facility] [place] [address], USAChloride [Moles/Vol]105 mmol/WJpkegp81-297Hlc [facility] CenterComment on above:Order Comment: No: Do not add to previous drawPerformed By: #### 62745, 14672, 00941, 27535 ####[facility] [facility] [place] [address], USACO2 [Moles/Vol]23 mmol/UYuwlux40-59Smj [facility] CenterComment on above:Order Comment: No: Do not add to previous drawPerformed By: #### 05830, 98680, 81128, 20486 ####[facility] [facility] [place] [address], [facility]OSPITALCreatinine [Mass/Vol]1.04 mg/dLNormal0.60-1.20The [facility] Comment on above:Order Comment: No: Do not add to previous drawPerformed By: #### 46926, 32863, 70145, 96764 ####[facility] [place] [address].[place] [address], USAeGFR- non- Fgencusu61 ml/min/1.73sq m Abnormal>60The [facility] CenterComment on above:Order Comment: No: Do not add to previous drawResult Comment: Calculation may not be valid for patients over 70 yearsPerformed By: #### 04078, 95206, 83648, 87033 ####[facility] [place] [address].[place] [address], [place] GFR/1.73 sq M.predicted among blacks MDRD (S/P/Bld) [Vol rate/Area] mL/min/{1.73_m2}Normal>60The [facility] CenterComment on above:Order Comment: No: Do not add to previous drawResult Comment: Calculation may not be valid for patients over 70 yearsPerformed By: #### 67549, 99924, 10737, 84085 ####[facility] [facility] [place] [place] [address], USAGlucose [Mass/Vol]108 mg/xJGnvn51-299Iwf [facility] CenterComment on above:Order Comment: No: Do not add to previous drawPerformed By: #### 47120, 34940, 81067, 16119 ####[facility] [facility] [place] [address], [facility]OSPITALPotassium [Moles/Vol]4.1 mmol/LNormal3.5-5.1 The [facility] CenterComment on above:Order Comment: No: Do not add to previous drawPerformed By: #### 38213, 24974, 44058, 19840 ####[facility] [facility] [place] [address], [facility] Sodium [Moles/Vol]135 mmol/XKqv585-776Kai [facility] Comment on above:Order Comment: No: Do not add to previous drawPerformed By: #### 32269, 21480, 84480, 80598 ####[facility] [facility] [place] [address], USAUrea nitrogen [Mass/Vol]29 mg/dLHigh7-25The [facility] CenterComment on above:Order Comment: No: Do not add to previous drawPerformed By: #### 42247, 16742, 43214, 21274 ####[place] [address] [facility] [place] [place] [address], USACTA CHESTon [id number] CHESTUnProMedica Defiance Regional Hospital Department of Radiology [address] [place] [id number] Patient Name: RAMY MADRIGAL : 1935 Sex: F Age: Race: White Pt. 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 Electronically signed: Larry Holloway. Transcribed by: [email or web address], User Resident: Electronically Signed by: LARRY HOLLOWAY @ 08/04/2021 07:21 [facility] HospitalComment on above:Order Comment: Dissection MAGNESIUM BLOODon 37-42-8728Yjwholpax [Mass/Vol]2.1 mg/dLNormal1.9-2.7The [facility] CenterComment on above:Order Comment: No: Do not add to previous drawPerformed By: #### 23885, 43389, 03980, 78454 ####[facility] [place] [address], USATROPONIN-Ion 56-18-0643Yjujaobs I.cardiac [Mass/Vol]0.21 ng/mLCritically high0.00-0.04The [facility] CenterComment on above:Order Comment: No: Do not add to previous drawResult Comment: M-CRITICAL RESULT(S) REVIEWED, CALLED TO AND READ BACK BY RENU RALPH RN ON 08/04/2021 AT 18:26 REFERENCE RANGES: 0.00 - 0.04 ng/ml NORMAL 0.05 - 0.50 ng/ml INDETERMINATE > 0.50 ng/ml CONSISTENT WITH AN M.I.Performed By: #### 79415 #### [facility] [address] [place] [address], USATroponin I.cardiac [Mass/Vol]0.05 ng/mLHigh0.00-0.04The [facility] CenterComment on above:Result Comment: REFERENCE RANGES: 0.00 - 0.04 ng/ml NORMAL 0.05 - 0.50 ng/ml INDETERMINATE > 0.50 ng/ml CONSISTENT WITH AN M.I.Performed By: #### 43987, 82801, 84403, 17083 ####[facility] [facility] [place] [place] [address], USATSH3 WITH REFLEX FT4on 15-42-7337BYJ 3RD GENERATION3.10 uIU/mLNormal 0.34-5.60The [facility] CenterComment on above:Performed By: #### 35996, 30712, 61275, 65603 ####[facility] [place] [address], USAAPTTon 70-11-6291vEMU Coag (Bld) [Time]30.7 s Ehwxjw74.0-35.0The [facility] CenterComment on above:Order Comment: No: Do not add to previous drawResult Comment: ALL RESULTS MUST BE INTERPRETED WITH RESPECT TO BLOOD DRAWING ARTIFACT OR DILUTION ERROR OF ANTICOAGULANT AT THE TIME OF SAMPLING. THE APTT SHOULD NOT BE USED TO MONITOR UNFRACTIONATED HEPARIN THERAPY, THIS LABORATORY NO LONGER HAS AN ESTABLISHED THERAPEUTIC RANGE BASED ON THE APTT. IT IS RECOMMENDED THAT THE UFH - HEPARIN ASSAY (ANTI-XA ACTIVITY) BE USED FOR THIS PURPOSE.Performed By: #### 23702 #### [facility] [address] [place] [address], USABASIC METABOLIC PANELon 18-58-6527Llzbvrw [Mass/Vol]8.9 mg/dLNormal8.6-10.3The [facility] CenterComment on above:Order Comment: No: Do not add to previous drawPerformed By: #### 33892, 65537, 97666, 95569 ####[facility] [facility] [place] [address], USAChloride [Moles/Vol]98 mmol/UDjbygi52-142Ubt [facility] CenterComment on above:Order Comment: No: Do not add to previous draw Performed By: #### 29108, 04576, 71208, 11640 ####[facility] [place] [address], USACO2 [Moles/Vol]21 mmol/SImcuyu68-19 The [facility] CenterComment on above:Order Comment: No: Do not add to previous drawPerformed By: #### 57436, 95209, 80060, 60564 ####[facility] [facility] [place] [address], [place] Creatinine [Mass/Vol]0.93 mg/dLNormal0.60-1.20The [facility] CenterComment on above:Order Comment: No: Do not add to previous drawPerformed By: #### 16194, 36746, 74443, 70909 ####[facility] [facility] [address], USAeGFR- non- Cgksiapt74 ml/min/1.73sq m Abnormal>60The [facility] CenterComment on above:Order Comment: No: Do not add to previous drawResult Comment: Calculation may not be valid for patients over 70 yearsPerformed By: #### 54275, 69041, 84108, 32229 ####[facility] [facility] [place] [address], [place] GFR/1.73 sq M.predicted among blacks MDRD (S/P/Bld) [Vol rate/Area] mL/min/{1.73_m2}Normal>60The [facility] CenterComment on above:Order Comment: No: Do not add to previous drawResult Comment: Calculation may not be valid for patients over 70 yearsPerformed By: #### 00107, 67404, 09249, 58734 ####[facility] [facility] [place] [address], USAGlucose [Mass/Vol]136 mg/vXOujd67-930Cgf [facility] CenterComment on above:Order Comment: No: Do not add to previous drawPerformed By: #### 31957, 28107, 45600, 96971 ####[facility] [place] [address], USAPotassium [Moles/Vol]3.1 mmol/LLow3.5-5.1The [facility] CenterComment on above:Order Comment: No: Do not add to previous drawPerformed By: #### 60338, 11162, 81913, 44282 ####[facility] [place] [address], USASodium [Moles/Vol]132 mmol/QYrm178-550Xew [facility] Tri[facility] Medical CenterComment on above:Order Comment: No: Do not add to previous drawPerformed By: #### 86645, 91372, 49053, 52535 ####[facility] [place] [address], USAUrea nitrogen [Mass/Vol]22 mg/dLNormal7-25The [facility] TriPoint Medical CenterComment on above:Order Comment: No: Do not add to previous drawPerformed By: #### 06685, 90499, 65961, 88756 ####[facility] [facility] [place] [address], [facility] HOSPITALCBC W/DIFFon 36-41-7315AWM IMM GRANS0.1 10*3/uLNormal0.0-0.2The [facility] TriPoint Medical CenterComment on above:Performed By: #### 67667 #### [facility] [address] [facility] [place] [address], USAABS NEUTROPHILS9.1 10*3/uLHigh1.6-7.6The [facility] Tri[facility] Medical CenterComment on above:Performed By: #### 74922 #### [facility] [address] [facility] [place] [address], USABasophils (Bld) [#/Vol]0.0 10*3/uLNormal0.0-0.2The [facility] Medical CenterComment on above:Performed By: #### 21915 #### [facility] [address] [facility] [place] [address], USABasophils/100 WBC (Bld)0.3 %Normal0.0-1.0The [facility] Tri[facility] Medical CenterComment on above:Performed By: #### 49379 #### [facility] [address] [facility] [place] [address], USAEosinophils (Bld) [#/Vol]0.0 10*3/uLNormal0.0-0.5The [facility] Medical CenterComment on above:Performed By: #### 13039 #### [facility] [address] [facility] [place] [address], USAEosinophils/100 WBC (Bld)0.2 %Normal0.0-6.0The [facility] Tri[facility] Medical CenterComment on above:Performed By: #### 83603 #### [facility] [address] [place] [address], USAErythrocyte distribution width (RBC) [Ratio]12.9 %Normal 11.5-15.0The [facility] Tri[facility] Medical CenterComment on above:Performed By: #### 21839 #### [facility] [address] [place] [address], USAHematocrit (Bld) [Volume fraction]38.3 %Capdwh22.0-45.0The [facility] Medical CenterComment on above:Performed By: #### 70991 #### [facility] [address] [place] [address], USAHemoglobin (Bld) [Mass/Vol]12.9 g/iUYewktx51.0-15.0The [facility] Medical CenterComment on above:Performed By: #### 04555 #### [facility] [address] [place] [address], USAIMMATURE GRANS0.5 %Normal0.0-1.0The [facility] Medical CenterComment on above:Performed By: #### 01084 #### [facility] [address] [place] [address], USALymphocytes (Bld) [#/Vol]1.9 10*3/uLNormal1.2-4.0The [facility] Medical CenterComment on above:Performed By: #### 16151 #### [facility] [address] [facility] [facility] [address], USALymphocytes/100 WBC (Bld)15.7 %Low20.0-45.0The [facility] Medical CenterComment on above:Performed By: #### 18468 #### [facility] [address] [place] [address], USAMCH (RBC) [Entitic mass]28.9 lrKsxfwa78.0-33.0The [facility] Medical CenterComment on above:Performed By: #### 65215 #### [facility] [address] [place] [address], [facility] HOSPITALMCHC (RBC) [Mass/Vol]33.7 g/kUGbyeru53.0-35.0The [facility] CenterComment on above:Performed By: #### 31497 #### [facility] [address] [facility] [place] [address], [facility] HOSPITALMCV (RBC) [Entitic vol]85.9 qHKtbejy01.0-98.0The [facility] Medical CenterComment on above:Performed By: #### 94954 #### [facility] [address] [facility] [place] [address], [facility] HOSPITALMonocytes (Bld) [#/Vol]1.2 10*3/uLHigh0.1-1.0The [facility] Medical CenterComment on above:Performed By: #### 94253 #### [facility] [address] [facility] [place] [address], [facility] HOSPITALMONOS9.5 %Normal5.0-12.0The [facility] Medical CenterComment on above:Performed By: #### 27523 #### [facility] [address] [place] [address], [facility] HOSPITALNeutrophils/100 WBC (Bld)73.8 %High40.0-72.0The [facility] Medical CenterComment on above:Performed By: #### 22976 #### [facility] [address] [facility] [place] [address], USANucleated RBC/100 WBC (Bld) [Ratio]0 %Normal0-0The [facility] Medical CenterComment on above:Performed By: #### 96118 #### [facility] [address] [place] [address], USAPLAT DGE756 10*3/aSVbmuqy368-668Bkq [facility] CenterComment on above:Performed By: #### 40130 #### [facility] [address] [place] [address], USARBC (Bld) [#/Vol]4.46 10*6/uLNormal3.80-5.00The [facility] Medical CenterComment on above:Performed By: #### 05778 #### [facility] [address] [place] [address], [facility] HOSPITALWBC (Bld) [#/Vol]12.32 10*3/uLHigh4.00-10.60The [facility] CenterComment on above:Performed By: #### 49206 #### [facility] [address] [place] [address], [facility] HOSPITALMAGNESIUM BLOODon 32-23-5775Luubmljlp [Mass/Vol]1.8 mg/dL Low1.9-2.7The [facility] Medical CenterComment on above:Order Comment: Check Pacemaker/AICD Lead PositionPerformed By: #### 69869, 43809, 93816, 09435 ####[facility] [facility] [place] [address], [facility] PHOSPHORUS BLOODon 69-17-6413Ckhptzbfw [Mass/Vol]3.2 mg/dLNormal2.5-5.0The [facility] Medical CenterComment on above:Order Comment: No: Do not add to previous drawPerformed By: #### 70913, 77896, 19881, 82312 ####[facility] [facility] [place] [address], [facility] TING[facility] HOSPITALPROTHROMBIN TIME on 72-97-3735DEV Coag (PPP) [Relative time]1.12 {INR}Normal0.91-1.16The [facility] Medical CenterComment on above:Order Comment: No: Do not add to previous drawResult Comment: ACCCP RECOMMENDED INR FOR WARFARIN THERAPY ------- CONDITION INR PROPHYLAXIS OF VENOUS THROMBOSIS 2-3 (HIGH-RISK SURGERY) TREATMENT OF VENOUS THROMBOSIS 2-3 TREATMENT OF PULMONARY EMBOLISM 2-3 PREVENTION OF SYSTEMIC EMBOLISM: 2-3 ACUTE MYOCARDIAL INFARCTION TISSUE HEART VALVES VALVULAR HEART DISEASE ATRIAL FIBRILLATION RECURRENT SYSTEMIC EMBOLISM MECHANICAL HEART VALVE 2.5-3.5 FROM: ORAL ANTICOAGULANTS. MECHANISM OF ACTION, CLINICAL EFFECTIVENESS, AND OPTIMAL THERAPEUTIC RANGE. CHEST 1995;108:231S-246S.Performed By: #### 29671 #### [facility] [address] [facility] [place] [address], USAPT Coag (PPP) [Time]14.4 yGxuexl29.3-14.8The [facility] Medical CenterComment on above:Order Comment: No: Do not add to previous drawResult Comment: ALL RESULTS MUST BE INTERPRETED WITH RESPECT TO BLOOD DRAWING ARTIFACT OR DILUTION ERROR OF ANTICOAGULANT AT THE TIME OF SAMPLING.Performed By: #### 79476 #### [facility] [address] [facility] [place] [address], USATROPONIN-Ion 12-85-0310Aakohegk I.cardiac [Mass/Vol]0.09 ng/mLHigh0.00-0.04The [facility] Medical CenterComment on above:Order Comment: No: Do not add to previous drawResult Comment: REFERENCE RANGES: 0.00 - 0.04 ng/ml NORMAL 0.05 - 0.50 ng/ml INDETERMINATE > 0.50 ng/ml CONSISTENT WITH AN M.I.Performed By: #### 13422 #### [facility] [address] [facility] [place] [address], USATroponin I.cardiac [Mass/Vol]0.08 ng/mLHigh0.00-0.04The [facility] CenterComment on above:Order Comment: No: Do not add to previous drawResult Comment: REFERENCE RANGES: 0.00 - 0.04 ng/ml NORMAL 0.05 - 0.50 ng/ml INDETERMINATE > 0.50 ng/ml CONSISTENT WITH AN M.I.Performed By: #### 56609, 04836, 57088, 74312 ####[facility] [place] [address], USABASI METABOLIC PANELon 86-06-2908HOB/CREATININE RATIONOT APPLICABLENormal 10-27Quest DiagnosticsComment on above:Performed By: #### 88005, 20626 #### [facility] [address], [address] [place] [address] Hem Inspector: Trae MUELLERalcium [Mass/Vol]10.2 mg/dLNormal8.6-10.4 Quest DiagnosticsComment on above:Performed By: #### 09185, 96968 #### [facility] [place] [address] Hem Inspector: Trae Cruz MDChloride [Moles/Vol]98 mmol/LGddrzk79-902Neygs DiagnosticsComment on above:Performed By: #### 66303, 52052 #### [facility] [address], [address] [place] [address] Hem Inspector: Trae Cruz MDCO2 [Moles/Vol]32 mmol/PRfhinw49-15Aakts DiagnosticsComment on above:Performed By: #### 08233, 29195 #### [facility] [place] [address] Hem Inspector: Trae MUELLERreatinine [Mass/Vol]0.81 mg/dLNormal0.60-0.88 Quest DiagnosticsComment on above:Result Comment: For patients >49 years of age, the reference limit for Creatinine is approximately 13% higher for people identified as -Togolese.Performed By: #### 11175, 69503 #### [facility] [address], [address] [place] [address] Hem Inspector: Trae Cruz MDeGFR NON-AFR. DTKCEKWD99 mL/min/1.88s5Zlhwww> OR = 60Quest DiagnosticsComment on above:Performed By: #### 89598, 38463 #### [facility] [address], [address] [place] [address] Hem Inspector: Trae Cruz MDGFR/1.73 sq M.predicted among blacks MDRD (S/P/Bld) [Vol rate/Area]77 mL/min/{1.73_m2}Normal> OR = 60[facility] Comment on above:Performed By: #### 31444, 86576 #### [facility] [address], [address] [place] [address] Hem Inspector: Trae Cruz MDGlucose [Mass/Vol]106 mg/nJMpzs89-50Gueee DiagnosticsComment on above:Result Comment: Fasting reference interval For someone without known diabetes, a glucose value between 100 and 125 mg/dL is consistent with prediabetes and should be confirmed with a follow-up test.Performed By: #### 32685, 08640 #### [facility] [address], [address] [place] [address] Hem Inspector: Trae Cruz MDPotassium [Moles/Vol]4.0 mmol/LNormal3.5-5.3 Quest DiagnosticsComment on above:Performed By: #### 11253, 59821 #### [facility] [address], [address] [place] [address] Hem Inspector: Trae Cruz MDSodium [Moles/Vol]140 mmol/JTynbjn109-972Ticmz DiagnosticsComment on above:Performed By: #### 13969, 42197 #### [facility] [address], [address] [place] [address] Hem Inspector: Trae Bentley nitrogen [Mass/Vol]16 mg/dLNormal7-25 Quest DiagnosticsComment on above:Performed By: #### 31398, 57450 #### [facility] [address], [address] [place] [address] Hem Inspector: Trae JACKSON+FREE T4on 84-19-1612Bzdv T4 [Mass/Vol]1.4 ng/dLNormal0.8-1.8Quest DiagnosticsComment on above:Order Comment: FASTING:YES FASTING: YESPerformed By: #### 97970, 16333 #### [facility] [address], [address] [place] [address] Hem Inspector: Trae JACKSON Qn0.79 m[IU]/LNormal0.40-4.50Quest DiagnosticsComment on above:Order Comment: FASTING:YES FASTING: YESPerformed By: #### 04469, 33263 #### [facility] [address], [address] [place] [address] Hem Inspector: Trae BEASELY METABOLIC PANELon 04-07-2021 BUN/CREATININE RATIONOT APPLICABLENormal6-22Quest DiagnosticsComment on above: Order Comment: FASTING:YES FASTING: YESPerformed By: #### 62516 #### [facility] [address], [address] [place] [address] Hem Inspector: Trae Cruz MDCalcium [Mass/Vol]10.3 mg/dLNormal8.6-10.4 Quest DiagnosticsComment on above:Order Comment: FASTING:YES FASTING: YESPerformed By: #### 19960 #### [facility] [address], [address] [place] [address] Hem Inspector: Trae Cruz MDChloride [Moles/Vol]97 mmol/SPpy53-569Flhaa DiagnosticsComment on above:Order Comment: FASTING:YES FASTING: YESPerformed By: #### 82519 #### [facility] of [address], [address] [place] [address] Hem Inspector: Trae Cruz MDCO2 [Moles/Vol]29 mmol/PYfsaax88-19Gkmlq DiagnosticsComment on above:Order Comment: FASTING:YES FASTING: YESPerformed By: #### 32269 #### [facility] [address], [address] [place] [address] Hem Inspector: Trae MUELLERreatinine [Mass/Vol]0.79 mg/dLNormal0.60-0.88 Quest DiagnosticsComment on above:Order Comment: FASTING:YES FASTING: YESResult Comment: For patients >49 years of age, the reference limit for Creatinine is approximately 13% higher for people identified as -Togolese.Performed By: #### 11805 #### [facility] [address], [address] [place] [address] Hem Inspector: Trae Cruz MDeGFR NON-AFR. NIOECALP99 mL/min/1.28s3Ukpuxf> OR = 60Quest DiagnosticsComment on above:Order Comment: FASTING:YES FASTING: YESPerformed By: #### 82408 #### [facility] [address], [address] [place] [address] Hem Inspector: Trae Cruz MDGFR/1.73 sq M.predicted among blacks MDRD (S/P/Bld) [Vol rate/Area]80 mL/min/{1.73_m2}Normal> OR = 60[facility] Comment on above:Order Comment: FASTING:YES FASTING: YESPerformed By: #### 09237 #### [facility] [address], [address] [place] [address] Hem Inspector: Trae Cruz MDGlucose [Mass/Vol]97 mg/bNRlukya51-56Ykkqm DiagnosticsComment on above:Order Comment: FASTING:YES FASTING: YESResult Comment: Fasting reference intervalPerformed By: #### 27730 #### [facility] [address], [address] [place] [address] Hem Inspector: Trae Cruz MDPotassium [Moles/Vol]3.8 mmol/LNormal3.5-5.3 [facility] DiagnosticsComment on above:Order Comment: FASTING:YES FASTING: YESPerformed By: #### 47188 #### [facility] [place] [address], [address] [place] [address] Hem Inspector: Trae Cruz MDSodium [Moles/Vol]138 mmol/CLngarx204-813Ovkue DiagnosticsComment on above:Order Comment: FASTING:YES FASTING: YESPerformed By: #### 02566 #### [facility] [place] [address] [address] , [address] [place] [address] Hem Inspector: Trae Cruz MDUrea nitrogen [Mass/Vol]17 mg/dLNormal7-25 Quest DiagnosticsComment on above:Order Comment: FASTING:YES FASTING: YESPerformed By: #### 62948 #### [facility] [address], [address] [place] [address] Hem Inspector: Trae Cruz MDMAGR Postoperative Recordon 25-80-3143QNPM Postoperative RecordMAGR Phase II Record Summary Primary Physician: CARMELITA YOUNG Finalized Date/Time: 11/06/20 07:41:53 Pt. Name: RAMY MADRIGAL/Sex: 1935 FEMALE Med Rec #: [id number] Physician: CARMELITA YOUNG Financial #: [id number] Pt. Type: O Room/Bed: [facility] [place]/ Admit/Disch: 10/23/20 05:52:00 - 10/27/20 14:23:00 Institution: Phase II Case Times MAGR Pre-Care Text: Patient is free from s/s of injury. Patient remains free from compromised physical state related tosurgery or anesthesia. Patient comfort maintained. Patient/family verbalize [...] discharge instructions. General Comments: care per 2 [facility] Finalized By: Giselle Mayer RN Document Signatures Signed By: Giselle Mayer RN 11/06/20 07:41[facility] Intraoperative Record on 88-73-0021BFJE Intraoperative RecordMAGR Intra-Op Record Summary Primary Physician: CARMELITA YOUNG Finalized Date/Time: 11/05/20 10:46:17 Pt. Name: RAMY MADRIGAL/Sex: 1935 FEMALE Med Rec #: [id number] Physician: CARMELITA YOUNG Financial #: [id number] Pt. Type: O [place] [facility] [place] [facility] Admit/Disch: 10/23/20 05:52:00 - 10/27/20 14:23:00 Institution: [...] MD Role Performed Surgeon - Primary Physican Concrete Hopper Operator Anesthesiologist of Record Time In 10/23/20 07:39:00 10/23/20 07:39:00 10/23/20 07:39:00 Time Out 10/23/20 12:14:00 10/23/20 12:14:00 10/23/20 12:14:00 Procedure Arthroplasty Knee Arthroplasty Knee Arthroplasty Knee Total(Right) Total(Right) Total(Right) Last Modified By: Lynn Boyle RN, Stephanie RN Sauer Lynn RN 10/23/20 12:23:15 10/23/20 12:23:15 10/23/20 12:23:15 Entry 4 Entry 5 Entry 6 Case Attendee Lynn Boyle RN RN, Amparo Malcolm Role Performed Yard Jacker Yard Jacker Mechanic Recovery Time In 10/23/20 07:39:00 10/23/20 07:39:00 10/23/20 07:39:00 Time Out 10/23/20 12:14:00 10/23/20 12:14:00 10/23/20 12:14:00 Procedure Arthroplasty Knee Arthroplasty Knee Arthroplasty Knee Total(Right) Total(Right) Total(Right) Last Modified By: Lynn Boyle RN, Stephanie RN Sauer, Stephanie RN 10/23/20 12:23:15 10/23/20 12:23:15 10/23/20 12:23:15 Entry 7 Entry 8 Case Attendee Enedina MORALEZ, Ashlie Deleon Role Performed Scrub Personnel Inspector Time In 10/23/20 07:39:00 10/23/20 09:00:00 Time [...] free from signs and symptoms of injury relat(more content not included)...[facility] Coding Summaryon 73-62-8743Xfpnda SummaryHTMLBase 64 EukriwkeFSt7tKs+PGhlYWQ+AB6LGEGqV79pfPIspW9DE8jJGF1BJRAEUPOJEX5BKQ1esKQ5JFhhC5Va biAv [file] LWN (more content not included)...NormalAdams County HospitalConsent Formson 07-67-8200Cloayma [id number]#1.00OTGTJAYA [facility] HospitalMedicare Messageon 06-28-2021Medicare Message [id number]#1.00[facility] Progress Note - Nurseon 93-49-9101Qikdefpp Note - Nurse [id number]#1.00OTDay[facility] In[facility] Patient Summaryon 95-97-0334Aganb[place] [address] Patient Discharge Instructions Name: RAMY MADRIGAL : 1935 Patient Address: [address] [place] [address] Primary Care Provider: Name: SEVEN PALMER After you are discharged if you find you have any questions, please, call [phone] ext [phone] to speak to a nurse. 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 If you or anyone you know is experiencing suicidal thoughts, mental health, alcohol and/or drug addiction problems; contact the [facility] 28/11 Crisis Hotline -Text 4HOPE to 980383. If you received any narcotics, sedation, or [...] business decisions or sign any legal documents [facility] would like to thank you for allowing us to assist you with your healthcare needs.The following includes patient education materials and information regarding your injury/illness. RAMY MADRIGALE has been given the following list of follow-up instructions, prescriptions,and patient education materials: Follow-up Instructions With: Address: When: [place] [address] Business (1) Comments: Call for follow up [...] Oral every day. omega-3 polyunsaturated fatty acids ([facility] Red Krill Oil 500 mg oral [...] 2 cap(s) Oral every day., Changed to 2000units daily post op, previously at home was 1000 units every other day. cyanocobalamin (Vitamin B-12 100 mcg oral tablet) 1 tab(s) Oral every day. docusate (docusate sodium 100 mg oral tablet (more content not included)... [facility] HospitalPharmacy Noteon 14-43-6491Jwjkjwzy NoteI have reviewed this patient's current medication list [...] meds [Electronically Signed on: 10/31/2020 11:41 EDT] Andre Tinoco RPh [Verified on: 10/31/2020 11:41 EDT] Andre Tinoco RPh, RNWyandot Memorial HospitalNutrition Noteon 10-97-8056Iqabjfyhj NoteWriter unable to meet w/ Pt during Pts [...] denied having any concerns or questions of commercial lines underwriter at this time. Will continue to monitor.[facility] HospitalPharmacy Noteon 13-15-5095Qzvweozf NoteI have reviewed this patient's current medication list [...] _ [Electronically Signed on: 10/30/2020 11:06 EDT] Andre Tinoco RPh [Verified on: 10/30/2020 11:06 EDT] Andre Tinoco RPh, RNWyandot Memorial HospitalProgress Note - Nurseon 10-30-2020 Progress Note - NurseDrsg. change right knee. Incision well approximated, johnathon intact. Redness et edema surround site. No active drng. Primapore to site. [Electronically Signed on: 10/30/2020 19:32 EDT] Shari Reynolds RN [Verified on: 10/30/2020 19:32 EDT] Shari Reynolds RNProMedica Flower Hospital.Auto Diff 1on 78-92-4200Usbx Kittson %9 %Normal1-12[facility] HospitalComment on above:Performed By: #### [id number], [id number], [id number] ####[facility] (DEFAULT)[address] [place] [address] 16823Vgkv Abs#0.1 s04Syqhab3.0-0.2Magrmercy health anderson hospital HospitalComment on above: Performed By: #### 5367811, [id number], [id number] ####[facility] (DEFAULT)[address] [place] [address] 13352Axqusiaxu/100 WBC (Bld)0.7 % Normal0.2-2.0[facility] HospitalComment on above:Performed By: #### [id number], [id number], [id number] ####[facility] (DEFAULT)[address] [place] [address] 31205Zik Abs#0.5 g14Vswy8.0-0.4Magruder HospitalComment on above: Performed By: #### 2238638, [id number], [id number] ####[facility] (DEFAULT)[address] [place] [address] 24157Rhmmqvbswyb/100 WBC (Bld)4.9 % High0.9-4.0Magruder HospitalComment on above:Performed By: #### 8639711, [id number], [id number] ####[facility] (DEFAULT)[address] [place] [address] 55948Sosff Abs#2.2 y43Sofsrl3.3-2.9Magruder HospitalComment on above:Performed By: #### [id number], [id number], [id number] ####[facility] (DEFAULT)[address] [place] [address] 91560Cizpkddmmfa/100 WBC (Bld)23 % Nkviuv46-94Ouzpskiw HospitalComment on above:Performed By: #### 2442539, [id number], [id number] ####[facility] (DEFAULT)[address] [place] [address] 85277Gqnx Abs#0.8 k75Eatdtp0.0-0.8Mauder HospitalComment on above: Performed By: #### [id number], [id number], [id number] ####[facility] (DEFAULT)[address] [place] [address] 97471Uhxc Abs#5.9 t43Vtnqhm4.5-9.2 [facility] HospitalComment on above:Performed By: #### 8226314, [id number], [id number] ####[facility] (DEFAULT)[address] [place] [address] 00332Tdhxryvgnyl/100 WBC (Bld)63 %Ioykkz64-54Bxvnljaq HospitalComment on above: Performed By: #### [id number], [id number], [id number] ####[facility] (DEFAULT)[address] [place] [address] 90699FCB Standardon 90-79-5384fNHE Non AA>60Invalid Interpretation [facility] HospitalComment on above:Performed By: #### [id number], [id number], [id number] ####[facility] (DEFAULT)[address] [place] [address] 33861hELR AA>60Invalid Interpretation [facility] HospitalComment on above:Result Comment: Chronic Kidney disease could be indicated at eGFRs of less than 60 ml/min/1.73m2. Kidney Failure is indicated at less than 15 ml/min/1.03t1Cxmbvbtme By: #### [id number], [id number], [id number] ####[facility] (DEFAULT)[address] [place] [address] 36567Djoap gap [Moles/Vol]17.0 mmol/LNormal5.0-19.0Ad[facility] County HospitalComment on above:Performed By: #### [id number], [id number], [id number] ####[facility] (DEFAULT)[address] [place] [address] 86120Fapzhgp [Mass/Vol]9.3 mg/dLNormal8.9-10.3MSumma Health Wadsworth - Rittman Medical CenterComment on above:Performed By: #### [id number], [id number], [id number] ####[facility] (DEFAULT)[address] [place] [address] 06912Usaakqhe [Moles/Vol]99 mmol/NLif905-030Ahlbdigg HospitalComment on above:Performed By: #### [id number], [id number], [id number] ####[facility] (DEFAULT)[address] [place] [address] 43152DC7 [Moles/Vol]25 mmol/RKdrzfg00-30Glbutkyj Hospital Comment on above:Performed By: #### [id number], [id number], [id number] ####[facility] (DEFAULT)[address] [place] [address] 36149Zfzvjftfjh [Mass/Vol] 0.63 mg/dLNormal0.60-1.30[facility] HospitalComment on above:Performed By: #### [id number], [id number], [id number] ####[facility] (DEFAULT)[address] [place] [address] 64326Ynfuami [Mass/Vol]120.0 mg/tNTzcp56.0-118.0[facility] HospitalComment on above:Performed By: #### [id number], [id number], [id number] ####[facility] (DEFAULT)[address] [place] [address] 09376Kdrwjxftiv 275 mOsm/LInvalid Interpretation CodeRegency Hospital Cleveland East HospitalComment on above:Performed By: #### [id number], [id number], [id number] ####[facility] (DEFAULT)[address] [place] [address] 71995Gegphlmzo [Moles/Vol]4.0 mmol/LNormal3.6-5.1 [facility] HospitalComment on above:Performed By: #### [id number], [id number], [id number] ####[facility] (DEFAULT)[address] [place] [address] 67608Xwluls [Moles/Vol]137.0 mmol/SLtyvin458.0-144.0[facility] HospitalComment on above:Performed By: #### [id number], [id number], [id number] ####[facility] (DEFAULT)[address] [place] [address] 72534Bqsm nitrogen [Mass/Vol]12 mg/dL Normal8-26[facility] HospitalComment on above:Performed By: #### [id number], [id number], [id number] ####[facility] (DEFAULT)[address] [place] [address] 05036Dczj nitrogen/Creatinine [Mass ratio]19.0 mg/mgHigh4.6-16.2 [facility] HospitalComment on above:Performed By: #### [id number], [id number], [id number] ####[facility] (DEFAULT)[address] [place] [address] 25777IBF w/ Auto Diffon 66-44-3726Vgsyiobcmlr distribution width (RBC) [Ratio] 14.7 %Ifyysd59.5-15.0[facility] HospitalComment on above:Performed By: #### [id number], [id number], [id number] ####[facility] (DEFAULT)[address] [place] [address] 34320Jtwssbpnoj (Bld) [Volume fraction]36.9 %Normal 33.7-40.4[facility] HospitalComment on above:Performed By: #### 3665729, 33272071, [id number] ####[facility] (DEFAULT)[address] [place] [address] 24564Ptbknjznci (Bld) [Mass/Vol]12.0 g/zHXyjrop61.3-15.9[facility] HospitalComment on above:Performed By: #### 6855984, 87036644, [id number] ####[facility] (DEFAULT)[address] [place] [address] 80992Kzyua WBC9.4 k85Kqjygut Interpretation CodeRegency Hospital Cleveland East HospitalComment on above:Performed By: #### [id number], [id number], [id number] ####[facility] (DEFAULT)[address] [place] [address] 18567Czb Diff?AutoNormalRegency Hospital Cleveland East HospitalComment on above:Performed By: #### [id number], 74565140, [id number] ####[facility] (DEFAULT)[address] [place] [address] 93901MJI (RBC) [Entitic mass]30 seUtpzla55-42Hijnhcob HospitalComment on above:Performed By: #### [id number], 75675792, [id number] ####[facility] (DEFAULT)[address] [place] [address] 84451PEUW (RBC) [Mass/Vol]32 g/aLVlaabh84-21Kbwnohrg HospitalComment on above:Performed By: #### [id number], [id number], [id number] ####[facility] (DEFAULT)[address] [place] [address] 12598LRT (RBC) [Entitic vol]92 vWVlqtss30-220Ggvxhnhr HospitalComment on above:Performed By: #### [id number], 32605566, [id number] ####[facility] (DEFAULT)[address] [place] [address] 80342Udfhybua 361 w49Oomhjj026-603Fddxndex HospitalComment on above:Performed By: #### 7525629, 26182112, [id number] ####[facility] (DEFAULT)[address] [place] [address] 43277Hlqszink mean volume (Bld) [Entitic vol]10.2 fL Normal6.3-10.2[facility]uder HospitalComment on above:Performed By: #### 5706049, 34262598, [id number] ####[facility] (DEFAULT)[address] [place] [address] 21876XAZ8.03 c16Nwqflp7.70-5.30[facility] HospitalComment on above: Performed By: #### 1244078, 79398251, [id number] ####[facility] (DEFAULT)[address] [place] [address] 10296GSU8.4 u19Tdsrhz4.5-10.5Magrmercy [facility] HospitalComment on above:Performed By: #### [id number], [id number], [id number] ####[facility] (DEFAULT)[address] [place] [address] 25508Pjkkceba Note - Nurseon 06-45-0191Vhrhgivi Note - NursePt stated to RN that bilateral groin pain has been there prior to her being admitted to the hospital for her recent RTK surgery. Pt is unsure if the groin pain has continued from her knee surgery shehad in May 2019 or if it just started a couple weeks prior to her recent surgery. Pt stated that she would use water bottles as ice packs to bilateral groin and that would help control the pain. seat mender notified. [Electronically Signed on: 10/29/2020 11:53 EDT] Cheryl GRAHAM, Tomeka [Verified on: 10/29/2020 11:53 EDT] Haigler RN, LoriNoSpringhill Medical Centeruder HospitalCoding Summaryon 95-92-2630Dmhxyc Summary HTMLBase 64 LrkabjiyYVq2cZs+PGhlYWQ+PX4GFINeB58efAOvuD8KG8sOVL1SOPTZRKSJFG2KHU2yvSC5AUcxH9Yo biAv [file] ZGV (more content not included)...[facility] HospitalConsent Formson 37-60-9077Eachhty [id number]#1.00OTGTLima City HospitalConsent Forms [id number]#1.00OTDayton Children's Hospital Nutrition Noteon 47-78-9610Fhsnzdecz NotePt now under Swing Bed/Transitional Care status for additional rehab s/p Rt TKA. Pt remains on a Regular diet w/ Ensure Compact BID in place. Constipation issues appear resolved at this time w/ last BM noted on 10/27. Intake avg 50-100% of meals which is an improvement. No new rec'd. Will continue to monitor.[facility] HospitalOutside Recordson 30-49-1751Mfmhric [id number]#1.00OTGTLima City HospitalProess Note - Nurseon 14-77-9966Exlqtyds Note - Nurse reports #10 right knee pain, patient oob up in chair, one percocet administered , will continue to monitor. [Electronically Signed on: 10/28/2020 12:50 EDT] Hermelinda Duval RN [Verified on: 10/28/2020 12:50 EDT] Hermelinda DuvalPomerene HospitalProgress Note - NurseUpdated on questionable er issues where the patient can do therapy at times and then can't. Pt had been medicated 1 hour prior and was having difficulty. Dr Young made aware of this when obtaining anti-coagulation therapy. [Electronically Signed on: 10/28/2020 10:31 EDT] Cat Santana RN [Verified on: 10/28/2020 10:31 EDT] Cat SantanaMagruder Hospital Note - Nurseback from shower, eating breakfast, dr. rojas at bedside, one percocet administered for #10 rightknee pain, will continue to monitor. [Electronically Signed on: 10/28/2020 08:58 EDT] Hermelinda Duval RN [Verified on: 10/28/2020 08:58 EDT] Hermelinda DuvalPomerene HospitalProvider Orderson 63-88-9221Klzkffly Orders [id number]#1.00OTDayton Children's Hospital Telemetry Stripson 34-87-4093Cbydkbzwj Strips [id number]#1.00OTDayton Children's HospitalBMP Standardon 22-59-0801oUVB Non AA>60Invalid Interpretation [facility] Comment on above:Performed By: #### [id number], [id number] ####[facility] (DEFAULT)[address] [place] [address] 16618aNRN AA>60Invalid Interpretation [facility] HospitalComment on above:Result Comment: Chronic Kidney disease could be indicated at eGFRs of less than 60 ml/min/1.73m2. Kidney Failure is indicated at less than 15 ml/min/1.80e1Bhrdyfilf By: #### [id number], [id number] ####[facility] (DEFAULT)[address] [place] [address] 22514Ymxmn gap [Moles/Vol]12.0 mmol/LNormal5.0-19.0[facility] HospitalComment on above:Performed By: #### [id number], [id number] ####[facility] (DEFAULT)[address] [place] [address] 81331Mckesgv [Mass/Vol]8.3 mg/dLLow8.9-10.3MSumma Health Wadsworth - Rittman Medical CenterComment on above:Performed By: #### [id number], [id number] ####[facility] (DEFAULT)[address] [place] [address] 71358Sljtjbwj [Moles/Vol]104 mmol/HHjcazu693-165Zvybdahk HospitalComment on above:Performed By: #### [id number], [id number] ####[facility] (DEFAULT)[address] [place] [address] 01204HF3 [Moles/Vol]26 mmol/NCacjcz40-27Yczdwwmm HospitalComment on above:Performed By: #### [id number], [id number] ####[facility] (DEFAULT)[address] [place] [address] 65231Nxvezupzeh [Mass/Vol]0.62 mg/dL Normal0.60-1.30[facility] HospitalComment on above:Performed By: #### [id number], [id number] ####[facility] (DEFAULT)[address] [place] [address] 04089Yuazctp [Mass/Vol]113.0 mg/lLFspmeu01.0-118.0[facility] HospitalComment on above:Performed By: #### [id number], [id number] ####[facility] (DEFAULT)[address] [place] [address] 07875Ttgvgajtfk997 mOsm/LInvalid Interpretation [facility] HospitalComment on above:Performed By: #### [id number], [id number] ####[facility] (DEFAULT)[address] [place] [address] 89761Blzaehhii [Moles/Vol]3.9 mmol/LNormal3.6-5.1MSumma Health [facility] Comment on above:Performed By: #### [id number], [id number] ####[facility] (DEFAULT)[address] [place] [address] 87757Asnmma [Moles/Vol]138.0 mmol/L Nqftcv528.0-144.0[facility] HospitalComment on above:Performed By: #### [id number], [id number] ####[facility] (DEFAULT)[address] [place] [address] 78181Iyxp nitrogen [Mass/Vol]11 mg/dLNormal8-26[facility] Comment on above:Performed By: #### [id number], [id number] ####[facility] (DEFAULT)[address] [place] [address] 46854Srhg nitrogen/Creatinine [Mass ratio]18.0 mg/mgHigh4.6-16.2[facility] HospitalComment on above:Performed By: #### [id number], [id number] ####[facility] (DEFAULT)[address] [place] [address] 69404Wmzyi Davon 25-32-7577Dgyp CollectedYesInvalid Interpretation [facility] HospitalComment on above:Performed By: #### [id number], [id number] ####[facility] (DEFAULT)[address] [place], [place] [address]Nqtzxpuvt Patient Summaryon 32-53-2711Lmouhpdpx Patient SummaryAdams County Hospital [address] [place] [address] Patient Discharge Instructions Name: RAMY MADRIGAL : 1935 Patient Address: [address] [place] [address] Primary Care Provider: Name: SEVEN PALMER After you are discharged if you find you have any questions, please, call [phone] ext [phone] to speak to a nurse. 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 If you or anyone you know is experiencing suicidal thoughts, mental health, alcohol and/or drug addiction problems; contact the [facility] 28/11 Crisis Hotline -Text 4HZIH to 374025. If you received any narcotics, sedation, or [...] business decisions or sign any legal documents [facility] would like to thank you for allowing us to assist you with your healthcare needs.The following includes patient education materials and information regarding your injury/illness. RAMY MADRIGAL has been given the following list of follow-up instructions, prescriptions,and patient education materials: Follow-up Instructions With: Address: When: November AT 11:00 AM [facility] [address], [address] Gloria/ DELONTE Magana [phone] Medications During the course of your visit, [...] Oral every day. omega-3 polyunsaturated fatty acids ([facility] [employer] Red Krill Oil 500 mg oral [...] Every 6 hours as needed asneeded for pain., post op medication acetaminophen-oxycodone (Percocet 5/325 oral tablet) 1 tab(s) Oral Every 6 hours as needed for painfor 7 Days. Refills: 0. amLODIPine (amLODIPine 10 mg oral tablet) 1 tab(s) Oral every day. ascorbic acid (ascorbic acid 500 mg oral capsule) 1 cap(s) Oral every day., post op medication aspirin (aspirin 81 mg oral tablet (more content not included)...[facility] HospitalPharmacy Noteon 78-62-1029Ldgfixqy NoteI have personally reviewed this patient's current medication [...] incision on right knee about the size ofa fist. Clindamycin restarted at that time. Culture [...] likely to hold upon d/c and have ptdiscuss restart with PCP. [Electronically Signed on: 10/27/2020 10:31 EDT] Remi Gilda Irving [Verified on: 10/27/2020 10:31 EDT] Remi PharmDGildaProMedica Flower HospitalProgress Note - Nurseon 28-89-7808Veerexxe Note - NursePatient reports little to no pain relief with [...] on. [Electronically Signed on: 10/27/2020 04:20 EDT] Shari Villalba RN [Verified on: 10/27/2020 04:20 EDT] Shari Villalba RNProMedica Flower Hospital.Auto Diff 1on 73-52-1327Qfqh Kittson %10 %Normal1-[address] [place], [place] [address]Comment on above:Performed By: #### [id number], [id number] #### [facility] (DEFAULT) [address] [place] [address] 05969Ajsh Abs#0.1 d72Uguavv8.0-0.2[facility] HospitalComment on above:Performed By: #### [id number], [id number] #### [facility] (DEFAULT) [address] [place] [address] 91318Hauauycgn/100 WBC (Bld)0.7 %Normal0.2-2.0[facility] Hospital Comment on above:Performed By: #### [id number], [id number] #### [facility] (DEFAULT) [address] [place] [address] 71880Zmk Abs#0.5 g75Yyxz1.0-0.4Magrmercy health anderson hospital HospitalComment on above:Performed By: #### [id number], [id number] #### [facility] (DEFAULT) [address] [place] [address] 71630Oahsarzlhtl/100 WBC (Bld)5.4 %High0.9-4.0Magrmercy health anderson hospital Hospital Comment on above:Performed By: #### [id number], [id number] #### [facility] (DEFAULT) [address] [place] [address] 54698Lvila Abs#2.6 g44Yibiit1.3-2.9Magrmercy health anderson hospital HospitalComment on above:Performed By: #### [id number], [id number] #### [facility] (DEFAULT) [address] [place] [address] 46428Csgfrvnwbzo/100 WBC (Bld)27 %Znszee66-94Gcdkuwsa Hospital Comment on above:Performed By: #### [id number], [id number] #### [facility] (DEFAULT) [address] [place] [address] 63137Jdnq Abs#1.0 n21Wtex9.0-0.8[facility] HospitalComment on above:Performed By: #### [id number], [id number] #### [facility] (DEFAULT) [address] [place] [address] 88771Auqc Abs#5.4 s01Wxaewz7.5-9.2Magrmercy [facility] anderson hospital HospitalComment on above:Performed By: #### [id number], [id number] #### [facility] (DEFAULT) [address] [place] [address] 26491Uycnhoasmgz/100 WBC (Bld)56 %Linuqy97-51Jxdqxpaa Hospital Comment on above:Performed By: #### [id number], [id number] #### [facility] (DEFAULT) [address] [place] [address] 73738HPY Standardon 70-39-5375bQQT Non AA>60Invalid Interpretation [facility] HospitalComment on above:Performed By: #### [id number], [id number] #### [facility] (DEFAULT) [address] [place] [address] 71244lHRW AA>60Invalid Interpretation [facility] Comment on above:Result Comment: Chronic Kidney disease could be indicated at eGFRs of less than 60 ml/min/1.73m2. Kidney Failure is indicated at less than 15 ml/min/1.80i1Ojrbaqxxn By: #### [id number], [id number] #### [facility] (DEFAULT) [address] [place] [address] 62648Voibw gap [Moles/Vol]14.0 mmol/LNormal5.0-19.0[facility] HospitalComment on above:Performed By: #### [id number], [id number] #### [facility] (DEFAULT) [address] [place] [address] 51823Gbshxcd [Mass/Vol]8.7 mg/dLLow8.9-10.3MSumma [facility] Comment on above:Performed By: #### [id number], [id number] #### [facility] (DEFAULT) [address] [place] [address] 86995Buxmbtys [Moles/Vol]102 mmol/PVbucig714-023Xaksxdaf HospitalComment on above:Performed By: #### [id number], [id number] #### [facility] (DEFAULT) [address] [place] [address] 85356AL7 [Moles/Vol]28 mmol/BFeumwi95-56Qsmvywef Hospital Comment on above:Performed By: #### [id number], [id number] #### [facility] (DEFAULT) [address] [place] [address] 48202Rxvvjzbwtk [Mass/Vol]0.55 mg/dLLow0.60-1.30[facility] HospitalComment on above:Performed By: #### [id number], [id number] #### [facility] (DEFAULT) [address] [place] [address] 80896Fqnvrgp [Mass/Vol]102.0 mg/nLVpvgjt06.0-118.0[facility] HospitalComment on above:Performed By: #### [id number], [id number] #### [facility] (DEFAULT) [address] [place] [address] 02425Pfrnvzorie219 mOsm/LInvalid Interpretation CodeRegency Hospital Cleveland East HospitalComment on above:Performed By: #### [id number], [id number] #### [facility] (DEFAULT) [address] [place] [address] 69331Cqowvzitl [Moles/Vol]3.6 mmol/LNormal3.6-5.1[facility] HospitalComment on above:Performed By: #### [id number], [id number] #### [facility] (DEFAULT) [address] [place] [address] 48487Nxzimb [Moles/Vol]140.0 mmol/JNglrxt203.0-144.0[facility] HospitalComment on above:Performed By: #### [id number], [id number] #### [facility] (DEFAULT) [address] [place] [address] 39550Ujen nitrogen [Mass/Vol]10 mg/dLNormal8-26[facility] HospitalComment on above:Performed By: #### [id number], [id number] #### [facility] (DEFAULT) [address] [place] [address] 39749Pmpq nitrogen/Creatinine [Mass ratio]18.0 mg/mgHigh 4.6-16.2[facility] HospitalComment on above:Performed By: #### [id number], [id number] #### [facility] (DEFAULT) [address] [place] [address] 38876BNR w/ Auto Diffon 43-62-0408Vleegsdlymy distribution width (RBC) [Ratio]15.0 %Beeewu84.5-15.0[facility] HospitalComment on above: Performed By: #### [id number], [id number] #### [facility] (DEFAULT) [address] [place] [address] 22379Gwmvptgpkv (Bld) [Volume fraction]34.5 %Vtndla97.7-40.4 [facility] HospitalComment on above:Performed By: #### [id number], [id number] #### [facility] (DEFAULT) [address] [place] [address] 41928Qhldwnqrpf (Bld) [Mass/Vol]11.1 g/dLLow11.3-15.9[facility] HospitalComment on above:Performed By: #### [id number], [id number] #### [facility] (DEFAULT) [address] [place] [address] 46273Iqixo WBC9.7 m33Bfizoox Interpretation CodeAdams County HospitalComment on above:Performed By: #### [id number], [id number] #### [facility] (DEFAULT) [address] [place] [address] 06745Epb Diff?AutoNormalRegency Hospital [facility] East HospitalComment on above: Performed By: #### [id number], [id number] #### [facility] (DEFAULT) [address] [place] [address] 16948CUX (RBC) [Entitic mass]30 jsMgrrbx54-57Afmzaqzd Hospital Comment on above:Performed By: #### [id number], [id number] #### [facility] (DEFAULT) [address] [place] [address] 89674CDGX (RBC) [Mass/Vol]32 g/fWQctmli54-46Ymzxqyqt Hospital Comment on above:Performed By: #### [id number], [id number] #### [facility] (DEFAULT) [address] [place] [address] 23951KJC (RBC) [Entitic vol]92 cZZbqzhx75-522Enreqrwe Hospital Comment on above:Performed By: #### [id number], [id number] #### [facility] (DEFAULT) [address] [place] [address] 62040Bsjtybea935 b74Cryoni290-278Qwbodpgy HospitalComment on above:Performed By: #### [id number], [id number] #### [facility] (DEFAULT) [address] [place] [address] 24888Bhekopdk mean volume (Bld) [Entitic vol]10.7 fLHigh 6.3-10.2[facility] HospitalComment on above:Performed By: #### [id number], 7365087 #### [facility] (DEFAULT) [address] [place] [address] 83191FIS7.74 u40Yeknng5.70-5.30[facility] HospitalComment on above:Performed By: #### [id number], [id number] #### [facility] (DEFAULT) [address] [place] [address] 58177XCR2.7 r00Kffqoj2.5-10.5[facility] HospitalComment on above: Performed By: #### [id number], [id number] #### [facility] (DEFAULT) [address] [place] [address] 34607Zldphowcmpn 45-80-0543Gddatxrff [Mass/Vol]1.54 mg/dLLow 1.80-2.50[facility] HospitalComment on above:Performed By: #### [id number], [id number] #### [facility] (DEFAULT) [address] [place] [address] 90516Ldgxdsrsk Noteon 03-56-7899Wivzwltpy NotePt with varied intake avg 55% of past [...] with lunch. Pt scheduled to be discharged today.[facility] HospitalPhaacy Noteon 30-18-5986Nwujayrn NoteI have personally reviewed this patient's current medication [...] incision on right knee about the size ofa fist. Clindamycin restarted at that time. Culture [...] likely to hold upon d/c and have ptdiscuss restart with PCP. [Electronically Signed on: 10/26/2020 08:42 EDT] Gilda Khalil PharmD [Verified on: 10/26/2020 08:42 EDT] iGlda Khalil PharmDProMedica Flower HospitalProess Note - Nurseon 80-66-2024Kebxcvfs Note - Nurse2 oxycodone administered for #8 right knee pain, will continue to monitor. [Electronically Signed on: 10/26/2020 13:24 EDT] Hermelinda Duval RN [Verified on: 10/26/2020 13:24 EDT] Hermelinda Duval [facility] HospitalProgress Note - Nurse2 oxycodone administered for #8 right knee and lower bilateral back pain, will continue to monitor. [Electronically Signed on: 10/26/2020 09:48 EDT] Hermelinda Duval RN [Verified on: 10/26/2020 09:48 EDT] Duval, [facility]Auto Diff 1on 41-38-0953Tbli Kittson %10 % Normal1-12[facility] HospitalComment on above:Performed By: #### [id number], [id number], [id number], [id number] ####[facility] (DEFAULT)[address] [place] [address] 15089Qlev Abs#0.0 i96Htvlsc7.0-0.2Magr[facility] HospitalComment on above: Performed By: #### [id number], [id number], [id number], [id number] ####[facility] (DEFAULT)[address] [place] [address] 29833Groesnxzn/100 WBC (Bld)0.4 % Normal0.2-2.0[facility] HospitalComment on above:Performed By: #### [id number], 2509738, [id number], [id number] ####[facility] (DEFAULT)[address] [place] [address] 54281Gzm Abs#0.3 u41Qmlwmf0.0-0.4[facility] HospitalComment on above:Performed By: #### 6047987, 6705924, [id number], 52937035 ####[facility] (DEFAULT)[address] [place] [address] 34033Mrcgohtrktc/100 WBC (Bld)2.9 %Normal0.9-4.0[facility] HospitalComment on above:Performed By: #### [id number], 7584662, [id number], [id number] ####[facility] (DEFAULT)[address] [place] [address] 28155Pdydw Abs#2.3 c76Mdkkti9.3-2.9[facility] Comment on above:Performed By: #### [id number], [id number], [id number], [id number] ####[facility] (DEFAULT)[address] [place] [address] 10007 Lymphocytes/100 WBC (Bld)20 %Puxlif99-08Yvcxvfyv HospitalComment on above: Performed By: #### [id number], [id number], [id number], [id number] ####[facility] (DEFAULT)[address] [place] [address] 37701Ikxo Abs#1.1 r18Tmup8.0-0.8 [facility] Hospital[facility]:Performed By: #### [id number], [id number], [id number], [id number] ####[facility] (DEFAULT)[address] [place] [address] 70612Mhno Abs#7.4 g95Wisxgy9.5-9.2[facility] HospitalComment on above: Performed By: #### [id number], [id number], [id number], [id number] ####[facility] (DEFAULT)[address] [place] [address] 05663Aqzxlvyebla/100 WBC (Bld)66 % Xyybjz49-24Yuykmfsp HospitalComment on above:Performed By: #### [id number], 0237559, [id number], [id number] ####[facility] (DEFAULT)[address] [place] [address] 65823NZW w/ Auto Diffon 47-86-8666Jgcquodqvaj distribution width (RBC) [Ratio]15.0 %Bucfqd23.5-15.0[facility] County HospitalComment on above:Performed By: #### [id number], 5880822, [id number], [id number] #### [facility] (DEFAULT) [address] [place] [address] 34790Wmzfjoydzl (Bld) [Volume fraction]35.4 %Cvymir37.7-40.4 [facility] HospitalComment on above:Performed By: #### 7991244, 3960566, [id number], [id number] #### [facility] (DEFAULT) [address] [place] [address] 95720Rdalbwoqbi (Bld) [Mass/Vol]11.5 g/sKYzqyel59.3-15.9 [facility] HospitalComment on above:Performed By: #### 8469451, 2175762, [id number], 35993159 #### [facility] (DEFAULT) [address] [place] [address] 70114Srsyb WBC11.2 h61Luwqrcu Interpretation CodeAdams County HospitalComment on above:Performed By: #### 6062959, 1306545, [id number], [id number] #### [facility] (DEFAULT) [address] [place] [address] 68752Utt Diff?AutoNormalRegency Hospital Cleveland East HospitalComment on above: Performed By: #### 7594069, 3635687, [id number], [id number] #### [facility] (DEFAULT) [address] [place] [address] 10157LNG (RBC) [Entitic mass]30 bsJebwet44-42Aktqkuhs Hospital Comment on above:Performed By: #### 3028698, 3422174, [id number], 22442552 #### [facility] (DEFAULT) [address] [place] [address] 47560LHXE (RBC) [Mass/Vol]32 g/pHZuaylf69-08Onbziovv Hospital Comment on above:Performed By: #### 4881076, 7063019, [id number], 96056627 #### [facility] (DEFAULT) [address] [place] [address] 16714BKI (RBC) [Entitic vol]91 zJCjtmvs76-280Agdzuamm Hospital Comment on above:Performed By: #### 1802281, 5476657, [id number], 17685059 #### [facility] (DEFAULT) [address] [place] [address] 06510Yjwoxbvt727 i98Sbyroy161-515Mhpppumu HospitalComment on above:Performed By: #### 3819088, 6976892, 2715874045, 11021488 #### [facility] (DEFAULT) [address] [place] [address] 12038Xlucweum mean volume (Bld) [Entitic vol]10.6 fLHigh 6.3-10.2Magrmercy [facility] hospital HospitalComment on above:Performed By: #### 4652248, 4784928, [id number], 90730149 #### [facility] (DEFAULT) [address] [place] [address] 50395YHX8.88 r82Tqbgzg2.70-5.30[facility] HospitalComment on above:Performed By: #### 5797879, 5438686, [id number], 30866927 #### [facility] (DEFAULT) [address] [place] [address] 14039YJR73.2 v15Ogkb0.5-10.5[facility] HospitalComment on above: Performed By: #### 1244109, 9535603, 2304237127, 99823951 #### [facility] (DEFAULT) [address] [place] [address] 45117Euatmanovpf Panel Standardon 42-48-6668Nunps gap [Moles/Vol]14.0 mmol/LNormal5.0-19.0[facility] HospitalComment on above:Performed By: #### 0704224, 7016317, 1338073271, 22947739 ####[facility] (DEFAULT)[address] [place] [address] 94476Tflrpabv [Moles/Vol]100 mmol/LLow 101-111Magruder HospitalComment on above:Performed By: #### 6979111, 9129138, 0285592099, 28126941 ####[facility] (DEFAULT)[address] [place] [address] 54729IW0 [Moles/Vol]27 mmol/OIykgkr73-15Olkfilcs HospitalComment on above:Performed By: #### 0873749, 4781480, 8605966990, 21686331 ####[facility] (DEFAULT)[address] [place] [address] 72034Zjnidnwks [Moles/Vol]3.1 mmol/LLow3.6-5.1[facility] HospitalComment on above:Performed By: #### 4774995, 4932113, 5877118181, 49868035 ####[facility] (DEFAULT)[address] [place] [address] 68516Gjnmbt [Moles/Vol]138.0 mmol/UFrbous503.0-144.0 [facility] HospitalComment on above:Performed By: #### 6198501, 1925953, 6270144172, 88762740 ####[facility] (DEFAULT)[address] [place] [address] 84285Bqsmwnujnov 49-64-7892Wflwqrplt [Mass/Vol]1.48 mg/dLLow 1.80-2.50[facility] HospitalComment on above:Performed By: #### 3617295, 1203747, 9427394698, 56722208 ####[facility] (DEFAULT)[address] [place] [address] 04913Varmukpf Note - Nurseon 50-81-5570Ghgztvkr Note - NurseAssisted pt. back to bed from her walk [...] nurse informed. Dr. Young called. Orders received. Pt . repositioned on her right side for comfort. [Electronically Signed on: 10/25/2020 19:45 EDT] Kalpesh Walsh RN [Verified on: 10/25/2020 19:45 EDT] Kalpesh Walsh RNProMedica Flower HospitalProgress Note - NurseDuring rounds pt awakened, I asked her how she is feeling if she needs anything for pain and she replies no, feeling good right now . [Electronically Signed on: 10/25/2020 00:42 EDT] Madeleine Yoder RN [Verified on: 10/25/2020 00:42 EDT] Madeleine Yoder [facility] CenterXR Knee One or Two Views Righton 43-14-4679HM Knee One or Two Views RightCLINICAL HISTORY: redness and pain to right knee. [...] Signature): Alejo Reinoso 10/25/20 8:45 pm Technologist: KaylynAdams County HospitalComment on above:Order Comment: Dr. Young requested A/P and Lat.Auto Diff 81-30-0154Xypm Kittson %11 %Normal1-12 [facility] HospitalComment on above:Performed By: #### [id number], 47769476, [id number] ####[facility] (DEFAULT)[address] [place] [address] 86872 Baso Abs#0.1 y07Mmtoxh1.0-0.2Magrmercy health and[facility] hospital HospitalComment on above:Performed By: #### [id number], 79237915, 2300418 ####[facility] (DEFAULT)[address] [place] [address] 07284Sxactimpb/100 WBC (Bld)0.8 %Normal0.2-2.0[facility] HospitalComment on above:Performed By: #### [id number], 77501418, 4242395 ####[facility] (DEFAULT)[address] [place] [address] 21232Wkh Abs# 0.4 w11Qqeumh7.0-0.4[facility] HospitalComment on above:Performed By: #### [id number], 47078444, 2155959 ####[facility] (DEFAULT)[address] [place] [address] 98089Bsmexsijswj/100 WBC (Bld)4.4 %High0.9-4.0[facility] HospitalComment on above:Performed By: #### [id number], 23497687, 1750030 ####[facility] (DEFAULT)[address] [place] [address] 56951Zcdcy Abs# 1.6 f44Piwphw1.3-2.9[facility] HospitalComment on above:Performed By: #### [id number], 75022027, 9039076 ####[facility] (DEFAULT)[address] [place] [address] 83270Ykfzasopwjg/100 WBC (Bld)18 %Uqnkoh55-90Inqwtzlp HospitalComment on above:Performed By: #### [id number], 01308385, 5754918 ####[facility] (DEFAULT)[address] [place] [address] 41412Tadk Abs# 1.0 c53Rdbj7.0-0.8[facility] HospitalComment on above:Performed By: #### [id number], 26023382, 7548917 ####[facility] (DEFAULT)[address] [place] [address] 34959Ugee Abs#5.8 g77Japagz7.5-9.2[facility] Hospital Comment on above:Performed By: #### [id number], 21334808, 9200658 ####[facility] (DEFAULT)[address] [place] [address] 47489Kdotchkymul/100 WBC (Bld)65 %Xtvnfh43-99Uhlaqtia HospitalComment on above:Performed By: #### [id number], 26937256, 7016577 ####[facility] (DEFAULT)[address] [place] [address] 60387OVL w/ Auto Diffon 01-58-6750Qenhdctkbgs distribution width (RBC) [Ratio]14.9 %Acbjdj44.5-15.0[facility] HospitalComment on above:Performed By: #### [id number], 54513259, 8389289 ####[facility] (DEFAULT)[address] [place] [address] 30677Ihtmbyrfsc (Bld) [Volume fraction]35.1 %Gjmnnr33.7-40.4[facility] HospitalComment on above:Performed By: #### [id number], 12082611, 9610337 ####[facility] (DEFAULT)[address] [place] [address] 80348Mghgojoffs (Bld) [Mass/Vol]11.3 g/nMAclgpd55.3-15.9 [facility] HospitalComment on above:Performed By: #### [id number], 76829922, 1919507 ####[facility] (DEFAULT)[address] [place] [address] 60150 Instr WBC8.9 l04Vukdztf Interpretation CodeRegency Hospital Cleveland East HospitalComment on above: Performed By: #### [id number], 68592672, 4282916 ####[facility] (DEFAULT)[address] [place] [address] 46490Bif Diff?AutoNormalRegency Hospital Cleveland East HospitalComment on above:Performed By: #### [id number], 75053203, 5630581 ####[facility] (DEFAULT)[address] [place] [address] 21579HTL (RBC) [Entitic mass]30 qzYidddu92-62Sarmiobv HospitalComment on above:Performed By: #### [id number], 07875720, 3922723 ####[facility] (DEFAULT)[address] [place] [address] 23916CHIV (RBC) [Mass/Vol]32 g/fFGzjkhp61-28Kwurbddo HospitalComment on above:Performed By: #### [id number], 67636517, 5374062 ####[facility] (DEFAULT)[address] [place] [address] 19473FRY (RBC) [Entitic vol]92 fLSfhphi53-036Pjwoazgo HospitalComment on above:Performed By: #### [id number], 60694382, 6171614 ####[facility] (DEFAULT)[address] [place] [address] 25156Odllxndx099 e32Xhnzek040-460Dizgbbzw HospitalComment on above:Performed By: #### [id number], 43672495, 3596599 ####[facility] (DEFAULT)[address] [place] [address] 85652Oowteswr mean volume (Bld) [Entitic vol]10.8 fLHigh6.3-10.2[facility] HospitalComment on above:Performed By: #### 1143881772, 01559507, 6572453 ####[facility] (DEFAULT)[address] [place] [address] 75677YXS4.83 f71Oyakek0.70-5.30[facility] HospitalComment on above:Performed By: #### 3795046735, 45559854, 7066170 ####[facility] (DEFAULT)[address] [place] [address] 96274UXJ5.9 q52Mamxur8.5-10.5[facility] HospitalComment on above:Performed By: #### [id number], 79002105, 6822224 ####[facility] (DEFAULT)[address] [place] [address] 71028 Electrolyte Panel Standardon 41-76-0129Lbtbq gap [Moles/Vol]11.0 mmol/LNormal 5.0-19.0[facility] HospitalComment on above:Performed By: #### [id number], 40357279, 4542381 ####[facility] (DEFAULT)[address] [place] [address] 69337Kgbnqzlh [Moles/Vol]103 mmol/PBjpmfs320-035Ezcdjywr HospitalComment on above:Performed By: #### [id number], 53945886, 7928072 ####[facility] (DEFAULT)[address] [place] [address] 04969LR0 [Moles/Vol]30 mmol/LNormal 21-32[facility] HospitalComment on above:Performed By: #### 3228427049, 01015928, 6427623 ####[facility] (DEFAULT)[address] [place] [address] 17666 Potassium [Moles/Vol]3.3 mmol/LLow3.6-5.1[facility] HospitalComment on above: Performed By: #### [id number], 83433571, 3357391 ####[facility] (DEFAULT)[address] [place] [address] 18996Nnxjyr [Moles/Vol]141.0 mmol/L Udrayw431.0-144.0[facility] HospitalComment on above:Performed By: #### 3792390049, 46361293, 9445232 ####[facility] (DEFAULT)[address] [place] [address] 30585Usdzxnzn Noteon 75-85-7122Cvrbzxdc NoteI have reviewed this patient's current medication list [...] Action: [Electronically Signed on: 10/24/2020 13:37 EDT] Andre Tinoco RPh R [Verified on: 10/24/2020 13:37 EDT] Andre Tinoco RPh RNWyandot Memorial HospitalProgress Note - Nurseon 06-19-2021 Progress Note - NursePt disoriented to where she is I want something but I'm not sure what it is . Pt reports her rightleg is still very painful, medicated her with 1mg IVP MS. [Electronically Signed on: 10/24/2020 22:57 EDT] Madeleine Yoder RN [Verified on: 10/24/2020 22:57 EDT] Madeleine Yoder RNProMedica Flower HospitalProsaint louis university hospital Note - NursePt. reports #9 Inner right knee pain. Pt. grimacing, gaurding, and appears very distressed. Pt. relates it is the worse pain she has had with her knee surgeries so far. Reports oxycodone did not workthis time. Unsuccessful with several position changes. Polar care refreshed. Charge nurse informed. [Electronically Signed on: 10/24/2020 16:44 EDT] Kalpesh Walsh RN [Verified on: 10/24/2020 16:44 EDT] Kalpesh Walsh RNProMedica Flower HospitalAnesthesia Noteon 20-57-9195Nxrfikeita NotePatient: RAMY MADRIGAL Age: 85 years Sex: FEMALE : 1935 Associated Diagnoses: None Author: Robbie Nielson MD Postoperative Information Anesthetic utilized: Regional: Spinal with Femoral Nerve Block. Assessment Anesthetic outcome No anesthetic complications noted. Plan Transfer/ Discharge: Patient can be discharged from PACU when criteria met. Condition good. [Electronically Signed on: 10/23/2020 12:45 EDT] Robbie Nielson MD [Verified on: 10/23/2020 12:45 EDT] Robbie Nielson MDProMedica Flower HospitalAnesthesia NotePatient: RAMY MADRIGAL Age: 85 years Sex: FEMALE [...] history): All Problems Arthritis / SNOMED CT 7958484 / Confirmed Hypertension / SNOMED CT 8785533828 / Confirmed Hypothyroidism / SNOMED CT 90291565 / Confirmed Insomnia / SNOMED CT 227830325 / Confirmed Osteopenia / SNOMED CT 039706922 / Confirmed Histories Family History: Cancer Sister COPD (chronic obstructive pulmonary disease) Father Sister Diabetes mellitus Mother Sister Alzheimers dementia Mother Procedure history: Arthroplasty of knee (10655860) on 05/26/2020 at 85 Years. Tonsillectomy (479907709). Appendectomy (827897758). Hysterectomy (257890528). Colonoscopy (972655260). Social History Electronic Cigarette/Vaping Assessment Electronic Cigarette [...] Oriented. Review / Management Laboratory Results Plan [place] [employer]iologists#(ASA) physical status classification: Class II. Anesthetic Preoperative [...] . [Electronically Signed on: 10/23/2020 08:32 EDT] Robbie Nielson MD [Verified on: 10/23/2020 08:32 EDT] [facility] Nielson MDV[facility] Health Administration Intraoperative Recordon 10-23-2020 MAGR Intraoperative RecordMAGR Intra-Op Record Summary Primary Physician: Finalized Date/Time: 10/23/20 07:41:55 Pt. Name: RAMY MADRIGAL /Sex: 1935 FEMALE Med Rec #: [id number] Physician: CARMELITA YOUNG Financial #: [id number] Pt. Type: D [place] [facility] [place] [facility] Admit/Disch: 10/23/20 05:52:00 - Institution: Case Times [...] Draper, Lora RN Role Performed Anesthesiologist of [employer] Record Time In 10/23/20 07:22:00 10/23/20 07:22:00 [...] Performs skin preparation Im.270.1 Implements protective measures toprevent skin and tissue injury due to chemical [...] Report Given To Sa (more content not included)...[facility] PACU Recordon 67-26-2753XNAF PACU RecordMA PACU Record Summary Primary Physician: CARMELITA YOUNG Finalized Date/Time: 10/23/20 13:32:37 Pt. Name: RAMY MADRIGAL/Sex: 1935 FEMALE Med Rec #: [id number] Physician: CARMELITA YOUNG Financial #: [id number] Pt. Type: D Room/Bed: 221/ Admit/Disch: 10/23/20 05:52:00 - Institution: PACU Case Times MAGR Entry 1 In PACU I 10/23/20 12:15:00 Discharge from PACU 10/23/20 13:20:00 I Last Modified By: Rosas Da Silva RN 10/23/20 13:32:30 Finalized By: Rosas Da Silva RN Document Signatures Signed By: Rosas Da Silva RN 10/23/20 13:32ProMedica Flower HospitalMAGR Preoperative Recordon 39-71-5503MWIV Preoperative RecordMAGR Pre-Op Record Summary Primary Physician: CARMELITA YOUNG Finalized Date/Time: 10/23/20 07:47:17 Pt. Name: RAMY MADRIGAL /Sex: 1935 FEMALE Med Rec #: [id number] Physician: CARMELITA YOUNG Financial #: [id number] Pt. Type: D Room/Bed: [facility] [place] [facility] Admit/Disch: 10/23/20 05:52:00 - Institution: Pre-Op Case [...] ready for surgery. The patient remains free froms/s of injury. Patient/family express understanding of plan of care and participate in decisions affectinghis or her perioperrative plan of care. Allergies documented appropriately. Patient identifiers and consent correct. General Comments: Pt arrived ambulatory with walker to psw. Denies SOB, chest pain, or fever. Denies pacemaker. Denies sleep apnea. Finalized By: Macey Negron RN Document Signatures Signed By: Macey Negron RN 10/23/20 07:47ProMedica Flower HospitalNutrition Noteon 10-23-2020 Nutrition NotePt admitted for scheduled Rt knee surgery. Pts [...] this time. Will monitor intake, wts and labs.[facility] HospitalPharmacy Noteon 42-43-6567Mngbgpil NoteI have reviewed this patient's current medication list [...] Other: [Electronically Signed on: 10/23/2020 15:27 EDT] Andre Tinoco RPh [Verified on: 10/23/2020 15:27 EDT] Andre Tinoco RPh RNWyandot Memorial HospitalProess Note - Nurseon 10-23-2020 Progress Note - NurseSat in chair this afternoon for approx. 45 minutes. Parris.fair, c/o dizziness et assisted back to bed. BP 75/46. Color pale, skin warm et dry. Symptoms subsided after return to bed. Blood pressure shows improvement. Denies nausea. Ate well this pm. Drsg. remains dry et intact on right knee. Toes pinket warn right foot. Polar care in place. [Electronically Signed on: 10/23/2020 17:59 EDT] Shari Reynolds RN [Verified on: 10/23/2020 17:59 EDT] Shari Reynolds RNProMedica Flower HospitalUA w Culture if Ind Standardon 60-79-7604Mmonzqolms UAProMedica Flower HospitalComment on above:Order Comment: ankit insertPerformed By: #### [id number], [id number] #### [facility] (DEFAULT) [address] [place] [address] 36515Kchbm (U)YellowProMedica Flower HospitalComment on above: Order Comment: ankit insertPerformed By: #### [id number], [id number] #### [facility] (DEFAULT) [address] [place] [address] 53372Julfyrb?Not IndicatedInvalid Interpretation [facility] HospitalComment on above:Order Comment: ankit insertPerformed By: #### [id number], [id number] #### [facility] (DEFAULT) [address] [place] [address] 62917Djhgqzx (U) [Mass/Vol][facility] Hospital Comment on above:Order Comment: ankit insertPerformed By: #### [id number], [id number] #### [facility] (DEFAULT) [address] [place] [address] 35231Bunkfoj Ql (U)[facility]tering Health TroyComment on above:Order Comment: ankit insertPerformed By: #### [id number], [id number] #### [facility] (DEFAULT) [address] [place] [address] 50482Wtqvn?Not IndicatedInvalid Interpretation CodeMagruder HospitalComment on above:Order Comment: pham insertPerformed By: #### [id number], [id number] #### [facility] (DEFAULT) [address] [place] [address] 89861KP BilirubinNegativeNormalNvgrmercy health anderson hospital HospitalComment on above:Order Comment: pham insertPerformed By: #### [id number], [id number] #### [facility] (DEFAULT) [address] [place] [address] 92967UB BloodNegativeNormalNEGATIVERegency Hospital Cleveland East HospitalComment on above:Order Comment: pham insertPerformed By: #### [id number], 6185302 #### [facility] (DEFAULT) [address] [place] [address] 74262JZ ClarityCLEARNormalCLEARRegency Hospital [facility] East HospitalComment on above:Order Comment: pham insertPerformed By: #### [id number], [id number] #### [facility] (DEFAULT) [address] [place] [address] 40201VV Leuk EstNegativeNormalNEGATIVERegency Hospital Cleveland East HospitalComment on above:Order Comment: pham insertPerformed By: #### [id number], [id number] #### [facility] (DEFAULT) [address] [place] [address] 34853PU NitriteNegativeNormalNEGATIVERegency Hospital Cleveland East HospitalComment on above:Order Comment: pham insertPerformed By: #### [id number], [id number] #### [facility] (DEFAULT) [address] [place] [address] 69113FU pH6.9Tosfrb5-6Gscgwijb HospitalComment on above:Order Comment: pham insertPerformed By: #### [id number], [id number] #### [facility] (DEFAULT) [address] [place] [address] 43601QF ProteinNegativeNormalNEGATIVERegency Hospital Cleveland East HospitalComment on above:Order Comment: pham insertPerformed By: #### [id number], [id number] #### [facility] (DEFAULT) [address] [place] [address] 36479GK Spec Grav<=1.735Asaequ0.001-1.035[facility] Comment on above:Order Comment: pham insertPerformed By: #### [id number], [id number] #### [facility] (DEFAULT[facility] [address] [place], [place] [address]QP Urobilinogen0.2 mg/dLNormal0.2-1.0[facility] Comment on above:Order Comment: pham insertPerformed By: #### [id number], [id number] #### [facility] (DEFAULT) [address] [place], [place] [address]Sfpag SourceClean CatchProMedica Flower HospitalComment on above:Order Comment: pham insertPerformed By: #### [id number], 6574489 #### [facility] (DEFAULT[facility] [address] [place], [place] [address]VZ Fluoroscopy Up to 1 Houron 72-92-4676EG Fluoroscopy Up to 1 HourEXAM: XR Knee One or Two Views Right, [...] Rigo Braun MD 10/23/20 11:41 a Technologist: [facility]XR K[facility] One or Two Views Righton 77-12-4671BD Knee One or Two Views RightEXAM: XR Knee One or Two Views Right [...] Rigo Braun MD 10/23/20 3:42 pm Technologist: [facility]XR Knee One or Two Views RightEXAM: XR Knee One or Two Views Right, [...] Rigo Braun MD 10/23/20 11:41 a Technologist: [facility] HospitalProgress Note - Nurseon 10-22-2020 Progress Note - NurseSpoke with pt regarding arrival time of 0600 and NPO after midnight. Verbalized understanding. [Electronically Signed on: 10/22/2020 09:15 EDT] Ruby Chi RN [Verified on: 10/22/2020 09:15 EDT] Alon GLADYS, Ruby ANormalMagruder HospitalProvider Orderson 10-16-2020 Provider [id number]#1.00OTGTIFFNormal Lucy HospitalCoding Summaryon 93-17-5599Riulwc SummaryHTMLBase 64 QjxfxkhjXBb9oRp+PGhlYWQ+IY6ZPMYyW34yuTMqfZ2EX1vEEA9EQOAHXUOYWT2ONR3hoLM5BNimN4Kp biAv [file] cHN (more content not included)...[facility] HospitalProgress Note - Nurseon 65-02-8179Lfthnjpc Note - NursePAT review done per Dr. Nielson, no orders received. [Electronically Signed on: 09/28/2020 12:31 EDT] Marycarmen Frost RN [Verified on: 09/28/2020 12:31 EDT] Marycarmen Frost RNNoPomerene HospitalProvider Orderson 77-41-9080Wxrcgjhh [id number]#1.00OTGTIFFProMedica Flower Hospital.Auto Diff 1on 01-73-3087Oznu Kittson %8 %[address] Comment on above:Performed By: #### [id number], [id number] #### [facility] (DEFAULT) [address] [place], [place] [address]Ihyv Abs#0.2 y43Gbofdj6.0-0.2MSumma Health Wadsworth - Rittman Medical CenterComment on above:Performed By: #### [id number], [id number] #### [facility] (DEFAULT) [address] [place] [address] 30775Pljmbkbrq/100 WBC (Bld)1.7 %Normal0.2-2.0[facility] Comment on above:Performed By: #### [id number], [id number] #### [facility] (DEFAULT) [address] [place] [address] 10721Bvg Abs#0.2 r75Hizsvk8.0-0.4[facility] HospitalComment on above:Performed By: #### [id number], [id number] #### [facility] (DEFAULT) [address] [place] [address] 67541Yemdjpafkrv/100 WBC (Bld)1.7 %Normal0.9-4.0[facility] HospitalComment on above:Performed By: #### [id number], [id number] #### [facility] (DEFAULT) [address] [place] [address] 53224Vrwoy Abs#3.4 p48Kdgn7.3-2.9[facility] HospitalComment on above:Performed By: #### [id number], [id number] #### [facility] (DEFAULT) [address] [place] [address] 30319Dwawrztdxfs/100 WBC (Bld)27 %Ckgggn13-10Zowdxigq Hospital Comment on above:Performed By: #### [id number], [id number] #### [facility] (DEFAULT) [address] [place] [address] 82420Vsyk Abs#1.0 g02Nscj2.0-0.8[facility] HospitalComment on above:Performed By: #### [id number], [id number] #### [facility] (DEFAULT) [address] [place] [address] [id number] Abs#7.7 x10Uegfbp1.5-9.2[facility] HospitalComment on above:Performed By: #### [id number] #### [facility] (DEFAULT) [address] [place] [address] [id number]/100 WBC (Bld)62 %Xxshyi34-98[facility] Comment on above:Performed By: #### [id number], [id number] #### [facility] (DEFAULT) [address] [place] [address] 07422FBG Standardon 62-27-3160dHOL Non AA>60Invalid Interpretation [facility] HospitalComment on above:Performed By: #### [id number], [id number] #### [facility] (DEFAULT) [address] [place] [address] 69236qJTH AA>60Invalid Interpretation [facility] Comment on above:Result Comment: Chronic Kidney disease could be indicated at eGFRs of less than 60 ml/min/1.73m2. Kidney Failure is indicated at less than 15 ml/min/1.34s8Agsuqtqif By: #### [id number], [id number] #### [facility] (DEFAULT) [address] [place] [address] 36860Fszfc gap [Moles/Vol]17.0 mmol/LNormal5.0-19.0[facility] HospitalComment on above:Performed By: #### [id number], [id number] #### [facility] (DEFAULT) [address] [place] [address] 58386Irmcslh [Mass/Vol]9.9 mg/dLNormal8.9-10.3[facility] Comment on above:Performed By: #### [id number], [id number] #### [facility] (DEFAULT) [address] [place] [address] 29192Tywxtpxf [Moles/Vol]97 mmol/FXmy756-115Stifgnxp Hospital Comment on above:Performed By: #### [id number], [id number] #### [facility] (DEFAULT) [address] [place] [address] 65545KU6 [Moles/Vol]26 mmol/CIdvqpp91-80Ydilyfku Hospital Comment on above:Performed By: #### [id number], [id number] #### [facility] (DEFAULT) [address] [place] [address] 00695Ulfmflswwd [Mass/Vol]0.81 mg/dLNormal0.60-1.30[facility] HospitalComment on above:Performed By: #### [id number], [id number] #### [facility] (DEFAULT) [address] [place] [address] 54479Rgfwado [Mass/Vol]127.0 mg/qOEuju60.0-118.0[facility] HospitalComment on above:Performed By: #### [id number], [id number] #### [facility] (DEFAULT) [address] [place] [address] 93849Xcobgfktsm012 mOsm/LInvalid Interpretation CodeRegency Hospital Cleveland East HospitalComment on above:Performed By: #### [id number], [id number] #### [facility] (DEFAULT) [address] [place] [address] 77577Zbormdqxp [Moles/Vol]3.9 mmol/LNormal3.6-5.1Magrmercy health anderson hospital HospitalComment on above:Performed By: #### [id number], [id number] #### [facility] (DEFAULT) [address] [place] [address] 41977Frgatj [Moles/Vol]136.0 mmol/JShgeui266.0-144.0[facility] HospitalComment on above:Performed By: #### [id number], [id number] #### [facility] (DEFAULT) [address] [place] [address] 50066Hyit nitrogen [Mass/Vol]19 mg/dLNormal8-26[facility] HospitalComment on above:Performed By: #### [id number], [id number] #### [facility] (DEFAULT) [address] [place] [address] 19010Kypd nitrogen/Creatinine [Mass ratio]23.0 mg/mgHigh 4.6-16.2[facility] HospitalComment on above:Performed By: #### [id number], [id number] #### [facility] (DEFAULT) [address] [place] [address] 42296MXV w/ Auto Diffon 91-84-9200Drqovwuqkyx distribution width (RBC) [Ratio]15.1 %High11.5-15.0Magruder HospitalComment on above: Performed By: #### [id number], [id number] #### [facility] (DEFAULT) [address] [place] [address] 12289Wddhhvbder (Bld) [Volume fraction]42.8 %High33.7-40.4 [facility] HospitalComment on above:Performed By: #### [id number], [id number] #### [facility] (DEFAULT) [address] [place] [address] 88697Wghkdwdnwv (Bld) [Mass/Vol]14.5 g/qCQefcfo53.3-15.9 [facility] HospitalComment on above:Performed By: #### [id number], 9697796 #### [facility] (DEFAULT) [address] [place] [address] 42657Wtczh WBC12.5 v62Mncyfaz Interpretation CodeAdams County HospitalComment on above:Performed By: #### [id number], [id number] #### [facility] (DEFAULT) [address] [place] [address] 59767Gqv Diff?AutoNormalAdams County HospitalComment on above: Performed By: #### [id number], [id number] #### [facility] (DEFAULT) [address] [place] [address] 24477WML (RBC) [Entitic mass]30 ciTbehgf71-33Dxwuenpe Hospital Comment on above:Performed By: #### [id number], [id number] #### [facility] (DEFAULT) [address] [place] [address] 03684XDMY (RBC) [Mass/Vol]34 g/bSAeflkq13-07Ijmnpbfv Hospital Comment on above:Performed By: #### [id number], 9609461 #### [facility] (DEFAULT) [address] [place] [address] 89295QKO (RBC) [Entitic vol]88 eQDzvlqk61-095Xnwuvetg Hospital Comment on above:Performed By: #### [id number], [id number] #### [facility] (DEFAULT) [address] [place] [address] 97165Weirojan969 z09Hags006-167Ycjethcd HospitalComment on above:Performed By: #### [id number], 3161383 #### [facility] (DEFAULT) [address] [place] [address] 45820Zjzxedkl mean volume (Bld) [Entitic vol]9.6 fLNormal 6.3-10.2Magrmercy [facility] hospital HospitalComment on above:Performed By: #### [id number], [id number] #### [facility] (DEFAULT) [address] [place] [address] 40525TKH9.87 c60Cjjkxc3.70-5.30[facility] HospitalComment on above:Performed By: #### [id number], 7776306 #### [facility] (DEFAULT) [address] [place] [address] 70905QBS09.5 b85Wqqy5.5-10.5[facility] HospitalComment on above: Performed By: #### [id number], [id number] #### [facility] (DEFAULT) [address] [place] [address] 89727YM w Culture if Ind Standardon 33-35-0873Pptqdsuvje UA NormalRegency Hospital Cleveland East HospitalComment on above:Performed By: #### [id number], [id number] #### [facility] (DEFAULT) [address] [place] [address] 40869Dqhxo (U)YellowNormalRegency Hospital [facility] East HospitalComment on above: Performed By: #### [id number], 6639938 #### [facility] (DEFAULT) [address] [place] [address] 50700Mmdjmkx?Not IndicatedInvalid Interpretation CodeRegency Hospital Cleveland East HospitalComment on above:Performed By: #### [id number], [id number] #### [facility] (DEFAULT) [address] [place] [address] 02975Xazmczm (U) [Mass/Vol]NegativeNormalRegency Hospital [facility] Hospital Comment on above:Performed By: #### [id number], 9821739 #### [facility] (DEFAULT) [address] [place] [address] 99928Rxurumx Ql (U)NegativeNormalMagruder HospitalComment on above:Performed By: #### [id number], [id number] #### [facility] (DEFAULT) [address] [place] [address] 23704Fwoyv?Not IndicatedInvalid Interpretation CodeMagruder HospitalComment on above:Performed By: #### [id number], [id number] #### [facility] (DEFAULT) [address] [place] [address] 05839OA BilirubinNegativeNormalMagruder HospitalComment on above:Performed By: #### [id number], 5055629 #### [facility] (DEFAULT) [address] [place] [address] 10029PK BloodNegativeNormalNEGATIVEMagruder HospitalComment on above:Performed By: #### [id number], [id number] #### [facility] (DEFAULT) [address] [place] [address] 43857JV ClarityCLEARNormalCLEARMagruder HospitalComment on above:Performed By: #### [id number], [id number] #### [facility] (DEFAULT) [address] [place] [address] 60749MD Leuk EstNegativeNormalNEGATIVEMagruder HospitalComment on above:Performed By: #### [id number], [id number] #### [facility] (DEFAULT) [address] [place] [address] 16587NQ NitriteNegativeNormalNEGATIVEMagruder HospitalComment on above:Performed By: #### [id number], 9935135 #### [facility] (DEFAULT) [address] [place] [address] 72880LD pH6.8Ebfiox2-4Urredyfe HospitalComment on above: Performed By: #### [id number], [id number] #### [facility] (DEFAULT) [address] [place] [address] 59436GB ProteinNegativeNormalNEGATIVEMagruder HospitalComment on above:Performed By: #### [id number], [id number] #### [facility] (DEFAULT) [address] [place], [place] [address]HN Spec Grav1.246Qpraok5.001-1.035[facility] HospitalComment on above:Performed By: #### [id number], [id number] #### [facility] (DEFAULT) [address] [place] [address] 00539AV Urobilinogen0.2 mg/dLNormal0.2-1.0[facility] Comment on above:Performed By: #### [id number], 6959608 #### [facility] (DEFAULT) [address] [place] [address] 32542Kfhdj SourceClean CatchNormalAdams County HospitalComment on above:Performed By: #### [id number], 5710585 #### [facility] (DEFAULT) [address] [place] [address] 67242HA Bone Length Studies Scanogramson 54-88-1360XI Bone Length Studies ScanogramsEXAM: XR Bone Length Studies Scanograms HISTORY: X-Ray [...] Rigo Braun MD 09/28/20 4:05 pm Technologist: [place] LEONWyandot Memorial HospitalMAGR Postoperative Recordon 06-05-2020 MAGR Postoperative RecordMAGR Phase II Record Summary Primary Physician: CARMELITA YOUNG Finalized Date/Time: 06/05/20 11:40:54 Pt. Name: RAMY MADRIGAL /Sex: 1935 FEMALE Med Rec #: [id number] Physician: CARMELITA YOUNG Financial #: [id number] Pt. Type: O Room/Bed: Admit/Disch: 05/26/20 07:20:00 - 05/27/20 13:15:00 Institution: Phase II Case Times MAGR Pre-Care Text: Patient is free from s/s of injury. Patient remains free from compromised physical state related tosurgery or anesthesia. Patient comfort maintained. Patient/family verbalize [...] discharge instructions. General Comments: care per 2 [facility] Finalized By: Charisse Santiago RN Document Signatures Signed By: Giselle Mayer RN 05/28/20 14:53 Charisse Santiago RN 06/05/20 11:40 Unfinalized History Date/Time Username Reason for Unfinalizing Freetext Reason for Unfinalizing 06/05/20 11:40 RSCOTT Correct Documentation Correct [facility] HospitalCoding Summaryon 72-15-6605Isaerf SummaryCODING DATE: 05/29/[address] [facility] STATUS: Home PAYOR: Medicare MC APC DESCRIPTION [...] Sleep disorder, unspecified E87.6 Hypokalemia Z79.899 Other intermediate card tender (current) drug therapy PYMT PROC APC STAT DESCRIPTION DOCTOR NAME DATE 59265 5114 J1 Open treatment of CARMELITA YOUNG [...] By: Sujey Rowley Date Saved: 05/28/2020 08:04 [facility] HospitalCoding Summaryon 68-90-5741Stocol SummaryCODING DATE: 05/28/[address] [facility] STATUS: Home PAYOR: Medicare MC APC DESCRIPTION [...] Sleep disorder, unspecified E87.6 Hypokalemia Z79.899 Other fdc (current) drug therapy PYMT PROC APC STAT DESCRIPTION DOCTOR NAME DATE 91087 5114 J1 Open treatment of CARMELITA YOUNG [...] By: Sujey Rowley Date Saved: 05/28/2020 08:04 [facility] NorthConsent Formson 05-28-2020 Consent [id number]#1.00[facility] CenterOutside Recordson 01-51-0739Lxgyywm Records [id number]#1.00[facility] Telemetry Stripson 69-58-2463Ogehzuraa Strips [id number]#1.00[facility].Auto Diff 1on 91-74-0181Dlxo Kittson %3 %Normal1-12[facility] HospitalComment on above: Performed By: #### [id number], [id number], [id number] ####[facility] (DEFAULT)[address] [place] [address] 16778Rxlj Abs#0.0 u86Mzljny0.0-0.2 [facility] HospitalComment on above:Performed By: #### [id number], [id number], 9679840 ####[facility] (DEFAULT)[address] [place] [address] 05681 Basophils/100 WBC (Bld)0.1 %Low0.2-2.0[facility] HospitalComment on above: Performed By: #### [id number], [id number], 1013685 ####[facility] (DEFAULT)[address] [place] [address] 68801Nqa Abs#0.0 y27Dnequn4.0-0.4 [facility] HospitalComment on above:Performed By: #### [id number], [id number], 9229028 ####[facility] (DEFAULT)[address] [place] [address] 87166 Eosinophils/100 WBC (Bld)0.0 %Low0.9-4.0[facility] HospitalComment on above: Performed By: #### [id number], [id number], 4901655 ####[facility] (DEFAULT)[address] [place] [address] 74607Bijhe Abs#1.1 q40Xzf5.3-2.9 [facility] HospitalComment on above:Performed By: #### [id number], [id number], [id number] ####[facility] (DEFAULT)[address] [place] [address] 42157 Lymphocytes/100 WBC (Bld)8 %Odt48-19Nhreruat HospitalComment on above:Performed By: #### [id number], [id number], 6087037 ####[facility] (DEFAULT)[address] [place] [address] 94826Rdoc Abs#0.5 l14Bashtx5.0-0.8[facility] Comment on above:Performed By: #### [id number], [id number], 7869570 ####[facility] (DEFAULT)[address] [place] [address] 87027Lvbe Abs#12.6 e09Layx 1.5-9.2[facility] HospitalComment on above:Performed By: #### [id number], [id number], 6862130 ####[facility] (DEFAULT)[address] [place] [address] 79255Cpqgazhadih/100 WBC (Bld)89 %Bjca55-64Xlldpxdm HospitalComment on above:Performed By: #### [id number], [id number], 9874774 ####[facility] (DEFAULT)[address] [place] [address] 23346OXQ w/ Auto Diffon 05-27-2020 Erythrocyte distribution width (RBC) [Ratio]13.1 %Cvkpwm79.5-15.0[facility] HospitalComment on above:Performed By: #### [id number], [id number], 9980337 ####[facility] (DEFAULT)[address] [place] [address] 96164Ndlvijcbyt (Bld) [Volume fraction]41.6 %High33.7-40.4[facility] HospitalComment on above: Performed By: #### [id number], [id number], 3647103 ####[facility] (DEFAULT)[address] [place] [address] 88978Uglpsqmdji (Bld) [Mass/Vol]13.8 g/bTPmitoq49.3-15.9[facility] HospitalComment on above:Performed By: #### [id number], [id number], 5988531 ####[facility] (DEFAULT)[address] [place] [address] 79151Koqqe WBC14.2 g36Byikpsz Interpretation CodeRegency Hospital Cleveland East HospitalComment on above:Performed By: #### [id number], [id number], 9954485 ####[facility] (DEFAULT)[address] [place] [address] 76638Xhx Diff? AutoNormalRegency Hospital Cleveland East HospitalComment on above:Performed By: #### [id number], [id number], 9469594 ####[facility] (DEFAULT)[address] [place] [address] 24538PWF (RBC) [Entitic mass]28 nhEpkqrg81-86Nqzbgyuj Hospital Comment on above:Performed By: #### [id number], [id number], 7066497 ####[facility] (DEFAULT)[address] [place] [address] 03789EXSK (RBC) [Mass/Vol]33 g/dPDgrcgb49-98Uvzzhfuf HospitalComment on above:Performed By: #### [id number], [id number], 1516243 ####[facility] (DEFAULT)[address] [place] [address] 16189ULM (RBC) [Entitic vol]86 pKBzzome53-668Xylztghn Hospital Comment on above:Performed By: #### [id number], [id number], 8664276 ####[facility] (DEFAULT)[address] [place] [address] 63155Dgbyehmw815 f24Gkwits 138-427[facility] HospitalComment on above:Performed By: #### [id number], [id number], 6017790 ####[facility] (DEFAULT)[address] [place] [address] 04172Yeuwjask mean volume (Bld) [Entitic vol]11.1 fLHigh6.3-10.2 [facility] HospitalComment on above:Performed By: #### [id number], [id number], 6161978 ####[facility] (DEFAULT)[address] [place] [address] 41515 RBC4.85 f68Spxmsc8.70-5.30[facility] HospitalComment on above:Performed By: #### [id number], [id number], 0133032 ####[facility] (DEFAULT)[address] [place] [address] 72480NRW16.2 v59Wfyr1.5-10.5[facility] HospitalComment on above:Result Comment: Slide ReviewedPerformed By: #### [id number], [id number], [id number] ####[facility] (DEFAULT)[address] [place] [address] 09010 Electrolyte Panel Standardon 55-68-4696Ugeoz gap [Moles/Vol]14.0 mmol/LNormal 5.0-19.0[facility] HospitalComment on above:Performed By: #### [id number], [id number], 4008934 ####[facility] (DEFAULT)[address] [place] [address] 09806Wihhcvro [Moles/Vol]101 mmol/EIygape212-090Nwbzdedz Hospital Comment on above:Performed By: #### [id number], [id number], 3014372 ####[facility] (DEFAULT)[address] [place] [address] 82473IO3 [Moles/Vol]28 mmol/GXebbbe85-76Izixvmat HospitalComment on above:Performed By: #### [id number], [id number], 5280400 ####[facility] (DEFAULT)[address] [place] [address] 30068Jpgrlybun [Moles/Vol]3.5 mmol/LLow3.6-5.1MSum[facility] Comment on above:Performed By: #### [id number], [id number], 4841337 ####[facility] (DEFAULT)[address] [place] [address] 45639Frermw [Moles/Vol]139.0 mmol/XFwmbxy222.0-144.0[facility] HospitalComment on above:Performed By: #### [id number], [id number], 6753350 ####[facility] (DEFAULT)[address] [place] [address] 30544Ffdwcmedr Patient Summaryon 16-53-4627Xatdbqomf Patient Summary[address] [address] Patient Discharge Instructions Name: RAMY MADRIGAL : 1935 Patient Address: [address] [place] [address] Primary Care Provider: Name: SEVEN PALMER After you are discharged if you find you have any questions, please, call [phone] ext [phone] to speak to a nurse. Discharge Diagnosis: Closed comminuted fracture of right patella with routine healing; Hypertension Prescription Information: If you have been given a prescription for narcotics, seek immediate medical attention if you have any difficulty breathing or any sudden status changes such as confusion andsleepiness. If you or anyone you know is experiencing suicidal thoughts, mental health, alcohol and/or drug addiction problems; contact the [facility] 28/11 Crisis Hotline -Text 4HOPE to 190946. If you received any narcotics, sedation, or [...] business decisions or sign any legal documents [facility] would like to thank you for allowing us to assist you with your healthcare needs.The following includes patient education materials and information regarding your injury/illness. RAMY MADRIGAL has been given the following list of follow-up instructions, prescriptions,and patient education materials: Follow-up Instructions With: Address: When: Alex Guerin [address] [place] [address], [address] [place] [address] Business (1) 06/01/2020 10:45 AM Medications During the course of your visit, your medication list was updated with the most current information. The details of those changes are reflected below: New Medications Printed Prescriptions acetaminophen-oxycodone (Percocet 5/325 [...] list that you can keep with you. acetaminophen-oxycodone (Percocet 5/325 oral tablet) 1 tab(s) Oral every 6 hours as needed for painfor 7 Days. Refills: 0. 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 Assessment Anesthetic outcome No anesthetic complications noted. Awake Pain controlled VSS Nausea controlled Respiratory non-labored. [Electronically Signed on: 05/28/2020 07:24 EST] Gonzalez Rich MD [Verified on: 05/28/2020 07:24 EST] Gonzalez Rich MDReg[facility] NotePatient: RAMY MADRIGAL Age: 85 years Sex: FEMALE [...] history): All Problems Arthritis / SNOMED CT 7774810 / Confirmed Hypertension / SNOMED CT 6240157000 / Confirmed Hypothyroidism / SNOMED CT 93735870 / Confirmed Insomnia / SNOMED CT 266509337 / Confirmed Osteopenia / SNOMED CT 913167407 / Confirmed controlled GERD, SHANTI Histories Family History: Cancer Sister COPD (chronic obstructive pulmonary disease) Father Sister Diabetes mellitus Mother Sister Alzheimers dementia Mother Procedure history: Tonsillectomy (371601572). Appendectomy (224960123). Hysterectomy (827830895). Colonoscopy (725363363). Social History Electronic Cigarette/Vaping Assessment Electronic Cigarette [...] (MAY 26 11:56) SBP 104 mmHg (MAY 26 11:56) DBP L 53mmHg (MAY 26 11:56) SpO2 99 % (MAY 26 11:56) Airway: Mallampati classification: II (soft palate, fauces, uvula visible). Mouth: Adequate opening, Dentures ( Partial plate ). Neck: No jugular venous distention, No full range of motion. Respiratory: Lungs are clear to auscultation. Cardiovascular: Normal rate, Regular rhythm, No murmur, No edema. Review / Management Laboratory Results Plan [place] [employer]esthesiologists#(ASA) physical status classification: Class II. Anesthetic Preoperative Plan Anesthesia: Combined technique (Spinal, adductor canal block). Anesthetic plan, risks, benefits, and alternatives discussed with the patient and/or family. Risks discussed. Patient verbalized understanding. Consent was signed by the patient. [Electronically Signed on: 05/26/2020 13:06 EST] Gonzalez Rich MD [Verified on: 05/26/2020 13:06 EST] Gonzalez Rich MDVeterans Health Administration Intraoperative Recordon 05-26-2020 [facility] Intraoperative RecordMAGR Intra-Op Record Summary Primary Physician: CARMELITA YOUNG Finalized Date/Time: 05/26/20 15:38:26 Pt. Name: RAMY MADRIGAL/Sex: 1935 FEMALE Med Rec #: [id number] Physician: CARMELITA YOUNG Financial #: [id number] Pt. Type: O Room/Bed: Admit/Disch: 05/26/20 07:20:00 - Institution: Case Times [...] Role Performed Surgeon - Primary Anesthesiologist of Yard Jacker Record Time In 05/26/20 11:57:00 05/26/20 11:57:00 05/26/20 11:57:00 Time Out 05/26/20 14:14:00 05/26/20 14:14:00 05/26/20 14:14:00 Procedure Arthroplasty Knee Arthroplasty Knee Arthroplasty Knee Total(Right) Total(Right) Total(Right) Last Modified By: Fátima Orellana RN, Wendy RN Southall, Wendy RN 05/26/20 14:39:50 05/26/20 14:39:50 05/26/20 14:39:50 Entry 4 Entry 5 Entry 6 Case Attendee Shira GRAHAM, Nicole Henry, Amparo Azul Role Performed Yard Jacker Scrub Personnel Mechanic Recovery Time In 05/26/20 11:57:00 05/26/20 11:57:00 05/26/20 11:57:00 Time Out 05/26/20 14:14:00 05/26/20 14:14:00 05/26/20 14:14:00 Procedure Arthroplasty Knee Arthroplasty Knee Arthroplasty Knee Total(Right) Total(Right) Total(Right) Last Modified By: Fátima rOellana RN, Wendy RN Southall, Wendy RN 05/26/20 14:39:50 05/26/20 14:39:50 05/26/20 14:39:50 Entry 7 Case Attendee Alex Guerin PA-C Role Performed Physican Concrete Hopper Operator Time In 05/26/20 11:57:00 Time Out 05/26/20 14:14:00 Procedure Arthroplasty Knee Total(Right) Last Modified By: Fátima Orellana RN 05/26/20 14:39:50 General Comments: [facility] Surgical Procedures MAGR Pre-Care Text: A.20 Verifies [...] Performs skin preparation Im.270.1 Implements protective measures toprevent skin and tissue injury due to chemical sources Entry 1 (more content not included)...[facility] Intraoperative RecordMAGR Intra-Op Record Summary Primary Physician: Finalized Date/Time: 05/26/20 12:51:17 Pt. Name: RAMY MADRIGAL /Sex: 1935 FEMALE Med Rec #: [id number] Physician: CARMELITA YOUNG Financial #: [id number] Pt. Type: D Room/Bed: [facility] Admit/Disch: 05/26/20 07:20:00 - Institution: Case [...] MD, Margaret RN Role Performed Anesthesiologist of Yard Jacker Record Time In 05/26/20 11:25:00 05/26/20 11:25:00 [...] Performs skin preparation Im.270.1 Implements protective measures toprevent skin and tissue injury due to chemical [...] Ramy Randall RN 01 (more content not included)...[facility] PACU Recordon [id number] PACU RecordMA PACU Record Summary Primary Physician: CARMELITA YOUNG Finalized Date/Time: 05/26/20 15:17:23 Pt. Name: RAMY MADRIGAL/Sex: 1935 FEMALE Med Rec #: [id number] Physician: CARMELITA YOUNG Financial #: [id number] Pt. Type: D Room/Bed: Admit/Disch: 05/26/20 07:20:00 - Institution: PACU Case Times MAGR Entry 1 In PACU I 05/26/20 14:15:00 Discharge from PACU 05/26/20 15:05:00 I Last Modified By: Marycarmen Frost RN 05/26/20 15:17:21 Finalized By: Marycarmen Frost RN Document Signatures Signed By: Marycarmen Frost RN 05/26/20 15:17[facility] Recordon [id number] Preoperative RecordMAGR Pre-Op Record Summary Primary Physician: CARMELITA YOUNG Finalized Date/Time: 05/26/20 12:51:44 Pt. Name: RAMY MADRIGAL /Sex: 1935 FEMALE Med Rec #: [id number] Physician: CARMELITA YOUNG Financial #: [id number] Pt. Type: D Room/Bed: Admit/Disch: 05/26/20 07:20:00 [...] ready for surgery. The patient remains free froms/s of injury. Patient/family express understanding of plan of care and participate in decisions affectinghis or her perioperrative plan of care. Allergies documented appropriately. Patient identifiers and consent correct. General Comments: Patient arrived ambulatory to W. Patient denies SOB, diabetes, CP, or pacemaker/defibrillator. Patient does have sleep apnea but hasnt used CPAP for 5 years and has clear sinus drainage. Finalized By: Ramy Randall RN Document Signatures Signed By: Ramy Randall RN 05/26/20 12:51[facility] HospitalNutrition Noteon [id number] NotePt admitted for scheduled Rt total knee surgery. Pt placed on a 3000kcal DM diet with usual post opvitamin/mineral and oral supplements. Pt does not appear to have DM; diet adjusted to Regular with i nhouse available Ensure Compact BID. Pre op labs reviewed and wnl. No wt hx available; pre-admit wtused for nutrition assessment. Pt is at high nutrition risk r/t age at 67y and surgery, however, noimmediate nutrition concerns identified at this time. Will monitor for changes in wts, intake and labs.Normal [facility] Note - Nurseon [id number] Note - NursePt with sensation up bilateral legs, does not feel sensation to void, states she knows she voided related to the warmth she felt. Pt able to assist with repositioning without difficulty, able to put left heel on bed to assist with pulling herself up in bed. Pt with c/o mild discomfort in knee, not requiring medication. [Electronically Signed on: 05/26/2020 16:44 EST] Eunice Daigle RN [Verified on: 05/26/2020 16:44 EST] Eunice Daigle RNNoMagruder Hospital Note - Nursept arrives in bed s/p recovery. Drowsy but appropriate. Pt's planned surgery was unable to be completed d/t patella issues noted. Pt expresses some sadness regarding this, emotional support provided.Coughs and deep breath well. Pt with knee [...] c/o. [Electronically Signed on: 05/26/2020 15:31 EST] Eunice Daigle RN [Verified on: 05/26/2020 15:31 EST] Eunice Daigle RNProMedica Flower HospitalXR Knee One or Two Views Righton [id number] Knee One or Two Views RightEXAM: XR Knee One or Two Views Right [...] Signature): Clayton Nielsen 05/27/20 5:13 am Technologist: [facility]XR K[facility] One or Two Views RightEXAM: XR Knee One or Two Views Right HISTORY: PRE SURGERY TOTAL KNEE FILMS COMPARISON: None. TECHNIQUE: 3 views of the right knee were obtained. FINDINGS: Marginal tricompartmental spurring with spurring of the tibial spines. Severe tricompartmental joint space narrowing. IMPRESSION: Severe osteoarthritis. Final Dictated by: Carolina Gaspar MD Dictated DT/TM: 05/26/20 2:36 Signed (Electronic Signature): Carolina Gaspar MD 05/26/20 2:37 pm Technologist: [facility]INECleveland [facility] Mentor HospitalProgress Note - Nurseon 05-25-2020 Progress Note - NurseSpoke with pt regarding arrival time change to 0715. Verbalized understanding. [Electronically Signed on: 05/25/2020 10:02 EST] Ruby Chi RN [Verified on: 05/25/2020 10:02 EST] Alon RNRuby [facility] Note - NurseSpoke with pt regarding arrival time of 0830 and NPO status. Verbalized understanding. [Electronically Signed on: 05/25/2020 09:17 EST] Ruby Chi RN [Verified on: 05/25/2020 09:17 EST] Alon RNRuby [facility] HospitalCoding Summaryon [id number] SummaryCODING DATE: 05/06/[address] [facility] STATUS: Home PAYOR: Medicare MC ADMIT DX: [...] By: Ria Christina Date Saved: 05/06/2020 10:28 [facility] Note - Nurseon 17-43-0577Plqdtsjz Note - NursePAT review done per Dr. Lacy, no orders received. [Electronically Signed on: 05/06/2020 11:44 EST] JakeMarycarmen salas RN [Verified on: 05/06/2020 11:44 EST] JakeMarycarmen salas GLADYSNoPomerene HospitalProvider Orderson 28-99-0094Yxmijyif [id number]#1.00OTGTIFFProMedica Flower Hospital.Auto Diff 1on [id number] [place] %9 %Normal1-12[facility] Comment on above:Performed By: #### [id number], [id number], [id number] ####[facility] (DEFAULT)[address] [place] [address] 54359Lqzq Abs#0.1 v01Izbcvq 0.0-0.2Magrmercy health anderson hospital HospitalComment on above:Performed By: #### [id number], [id number], [id number] ####[facility] (DEFAULT)[address] [place] [address] 59047 Basophils/100 WBC (Bld)1.0 %Normal0.2-2.0[facility] HospitalComment on above: Performed By: #### [id number], [id number], [id number] ####[facility] (DEFAULT)[address] [place] [address] 52909Cbu Abs#0.2 p88Aupuqo0.0-0.4 [facility] HospitalComment on above:Performed By: #### [id number], [id number], [id number] ####[facility] (DEFAULT)[address] [place] [address] 18058 Eosinophils/100 WBC (Bld)2.4 %Normal0.9-4.0[facility] HospitalComment on above: Performed By: #### [id number], [id number], [id number] ####[facility] (DEFAULT)[address] [place] [address] 48936Tlsmv Abs#3.0 j16Envi2.3-2.9 [facility] HospitalComment on above:Performed By: #### [id number], [id number], [id number] ####[facility] (DEFAULT)[address] [place] [address] 55207 Lymphocytes/100 WBC (Bld)31 %Ptmiby71-88Ypqzjpal HospitalComment on above: Performed By: #### [id number], [id number], [id number] ####[facility] (DEFAULT)[address] [place] [address] 14813Kyzs Abs#0.8 m32Qpinca9.0-0.8 [facility] HospitalComment on above:Performed By: #### [id number], [id number], [id number] ####[facility] (DEFAULT)[address] [place] [address] 70882 Neut Abs#5.6 o66Mbqcdl0.5-9.2[facility] HospitalComment on above:Performed By: #### [id number], [id number], [id number] ####[facility] (DEFAULT)[address] [place] [address] 01009Uktsgcvnybq/100 WBC (Bld)57 %Xjmrmc00-81Ccihgbmp HospitalComment on above:Performed By: #### [id number], [id number], [id number] ####[facility] (DEFAULT)[address] [place] [address] 84142MMH Standardon 34-77-8869eOEO Non AA>60Invalid Interpretation [facility] Comment on above:Performed By: #### [id number], [id number], [id number] ####[facility] (DEFAULT)[address] [place] [address] 33334uYLG AA>60Invalid Interpretation [facility] HospitalComment on above:Result Comment: Chronic Kidney disease could be indicated at eGFRs of less than 60 ml/min/1.73m2. Kidney Failure is indicated at less than 15 ml/min/1.50l5Glbrfhvjr By: #### [id number], [id number], [id number] ####[facility] (DEFAULT)[address] [place] [address] 80300Koxeo gap [Moles/Vol]16.0 mmol/LNormal5.0-19.0[facility] HospitalComment on above:Performed By: #### [id number], [id number], [id number] ####[facility] (DEFAULT)[address] [place] [address] 37147Hvsbfmn [Mass/Vol]10.0 mg/dL Normal8.9-10.3[facility] HospitalComment on above:Performed By: #### [id number], [id number], [id number] ####[facility] (DEFAULT)[address] [place] [address] 27388Tpqgxbqt [Moles/Vol]97 mmol/GUll540-586Ridwesyj HospitalComment on above:Performed By: #### [id number], [id number], [id number] ####[facility] (DEFAULT)[address] [place] [address] 19114MV5 [Moles/Vol]29 mmol/LNormal 21-32[facility] HospitalComment on above:Performed By: #### [id number], [id number], [id number] ####[facility] (DEFAULT)[address] [place] [address] 41229 Creatinine [Mass/Vol]0.81 mg/dLNormal0.60-1.30[facility] HospitalComment on above: Performed By: #### [id number], [id number], [id number] ####[facility] (DEFAULT)[address] [place] [address] 67607Djkgsnw [Mass/Vol]113.0 mg/dL Tzecwo30.0-118.0[facility] HospitalComment on above:Performed By: #### [id number], [id number], [id number] ####[facility] (DEFAULT)[address] [place] [address] 04366Xtacfcyjgd980 mOsm/LInvalid Interpretation CodeRegency Hospital Cleveland East HospitalComment on above:Performed By: #### [id number], [id number], [id number] ####[facility] (DEFAULT)[address] [place] [address] 20435Egtneoupj [Moles/Vol]4.0 mmol/L Normal3.6-5.1[facility] HospitalComment on above:Performed By: #### [id number], [id number], [id number] ####[facility] (DEFAULT)[address] [place] [address] 85220Gyegek [Moles/Vol]138.0 mmol/EQczggt221.0-144.0[facility] HospitalComment on above:Performed By: #### [id number], 7905063, [id number] ####[facility] (DEFAULT)[address] [place] [address] 78019Idxw nitrogen [Mass/Vol]15 mg/dL Normal8-26[facility] HospitalComment on above:Performed By: #### [id number], [id number], [id number] ####[facility] (DEFAULT)[address] [place] [address] 50160Sjvd nitrogen/Creatinine [Mass ratio]19.0 mg/mgHigh4.6-16.2MSumma Health Wadsworth - Rittman Medical CenterComment on above:Performed By: #### [id number], [id number], [id number] ####[facility] (DEFAULT)[address] [place] [address] 69068HNO w/ Auto Diffon 46-23-8889Crebwcscwxp distribution width (RBC) [Ratio]12.9 %Normal 11.5-15.0[facility] HospitalComment on above:Performed By: #### [id number], [id number], [id number] ####[facility] (DEFAULT)[address] [place] [address] 38744Mutawjjqmm (Bld) [Volume fraction]45.8 %High33.7-40.4[facility] Comment on above:Performed By: #### [id number], 1706695, 67782271 ####[facility] (DEFAULT)[address] [place] [address] 98706Dcftxcgldi (Bld) [Mass/Vol]15.2 g/jWWzglkd04.3-15.9[facility] HospitalComment on above:Performed By: #### [id number], 7512804, [id number] ####[facility] (DEFAULT)[address] [place] [address] 23050Gucwv WBC9.7 l71Ynfnvge Interpretation CodeRegency Hospital Cleveland East HospitalComment on above:Performed By: #### [id number], [id number], [id number] ####[facility] (DEFAULT)[address] [place] [address] 69703Jcv Diff? AutoNormalRegency Hospital Cleveland East HospitalComment on above:Performed By: #### [id number], [id number], 10476874 ####[facility] (DEFAULT)[address] [place] [address] 95579JZX (RBC) [Entitic mass]28 rzXhflqu54-68Nrmrvjvh HospitalComment on above:Performed By: #### [id number], 0699565, [id number] ####[facility] (DEFAULT)[address] [place] [address] 09116TPQE (RBC) [Mass/Vol]33 g/dL Uupffx35-44Spummmpq HospitalComment on above:Performed By: #### [id number], [id number], [id number] ####[facility] (DEFAULT)[address] [place] [address] 19167DMU (RBC) [Entitic vol]85 fPUlrbxq78-152Ckcqawvk HospitalComment on above:Performed By: #### [id number], [id number], [id number] ####[facility] (DEFAULT)[address] [place] [address] 85870Spfoegst908 d57Glbqry487-427 [facility] HospitalComment on above:Performed By: #### [id number], [id number], [id number] ####[facility] (DEFAULT)[address] [place] [address] 40357 Platelet mean volume (Bld) [Entitic vol]11.6 fLHigh6.3-10.2[facility] Hospital Comment on above:Performed By: #### [id number], [id number], [id number] ####[facility] (DEFAULT)[address] [place] [address] 69077LIJ3.36 z51Jmfm 3.70-5.30[facility] HospitalComment on above:Performed By: #### [id number], [id number], [id number] ####[facility] (DEFAULT)[address] [place] [address] 28124PNS8.7 c15Lzlwrd3.5-10.5[facility] HospitalComment on above:Performed By: #### [id number], [id number], [id number] ####[facility] (DEFAULT)[address] [place] [address] 83712AU Xmzvy0wq 15-88-5569FZ BacteriaNoneNormalRegency Hospital Cleveland East HospitalComment on above:Order Comment: Urinalysis Microscopic order added on by combionic Expert Rules system.Performed By: #### [id number], [id number] #### [facility] (DEFAULT) [address] [place] [address] 96222ER RBC0-2NormalRegency Hospital Cleveland East HospitalComment on above:Order Comment: Urinalysis Microscopic order added on by combionic Expert Rules system. Performed By: #### [id number], [id number] #### [facility] (DEFAULT) [address] [place] [address] 84804BU WBC0-2NormalRegency Hospital Cleveland East HospitalComment on above:Order Comment: Urinalysis Microscopic order added on by combionic Expert Rules system. Performed By: #### [id number], [id number] #### [facility] (DEFAULT) [address] [place] [address] 25446QE w Culture if Ind Standardon 10-42-6091Dagholdipc UA NormalRegency Hospital Cleveland East HospitalComment on above:Performed By: #### [id number], [id number] #### [facility] (DEFAULT) [address] [place] [address] 60089Gpbwb (U)YellowNormPremier Health HospitalComment on above: Performed By: #### [id number], [id number] #### [facility] (DEFAULT) [address] [place] [address] 77145Famghdr?Not IndicatedInvalid Interpretation CodeMagruder HospitalComment on above:Performed By: #### [id number], [id number] #### [facility] (DEFAULT) [address] [place] [address] 68712Jfjhtwz (U) [Mass/Vol]NegativeNormalMagruder Hospital Comment on above:Performed By: #### [id number], [id number] #### [facility] (DEFAULT) [address] [place] [address] 34884Yjeplhb Ql (U)NegativeNormalMagruder HospitalComment on above:Performed By: #### [id number], [id number] #### [facility] (DEFAULT) [address] [place] [address] 93675Cpayi?IndicatedNormalMagruder HospitalComment on above: Performed By: #### [id number], [id number] #### [facility] (DEFAULT) [address] [place] [address] 84209UB BilirubinNegativeNormalMagruder HospitalComment on above:Performed By: #### [id number], [id number] #### [facility] (DEFAULT) [address] [place] [address] 21849FV BloodTRACEAbnormalNEGATIVEMagruder HospitalComment on above:Performed By: #### [id number], [id number] #### [facility] (DEFAULT) [address] [place] [address] 02447FW ClarityCLEARNormalCLEARMagruder HospitalComment on above:Performed By: #### [id number], [id number] #### [facility] (DEFAULT) [address] [place] [address] 85220DK Leuk EstNegativeNormalNEGATIVEMagruder HospitalComment on above:Performed By: #### [id number], [id number] #### [facility] (DEFAULT) [address] [place] [address] 80263FI NitriteNegativeNormalNEGATIVEMagruder HospitalComment on above:Performed By: #### [id number], [id number] #### [facility] (DEFAULT) [address] [place] [address] 23361FW pH6.3Fcqkbx8-1Azcwswhv HospitalComment on above: Performed By: #### [id number], [id number] #### [facility] (DEFAULT) [address] [place] [address] 78616LS ProteinNegativeNormalNEGATIVERegency Hospital Cleveland East HospitalComment on above:Performed By: #### [id number], [id number] #### [facility] (DEFAULT) [address] [place] [address] 21001XQ Spec Grav<=1.077Fhacyf3.001-1.035[facility] Comment on above:Performed By: #### [id number], [id number] #### [facility] (DEFAULT) [address] [place] [address] 50702UV Urobilinogen0.2 mg/dLNormal0.2-1.0[facility] Comment on above:Performed By: #### [id number], [id number] #### [facility] (DEFAULT) [address] [place] [address] 62724Cyhfp SourceClean CatchNormPremier Health Upper Valley Medical CenterComment on above:Performed By: #### [id number], [id number] #### [facility] (DEFAULT) [address] [place] [address] 44831 Vital Signs Date TimeVital SignValuePerforming XatiicymrMygjmrgk63-52-5956 10:56-0400Body swrypc198.9 cmDenDiJiPOP DO Work Phone: [facility] Qhxvbo84-35-6796 10:56-0400Body mass index (BMI) [Ratio]26.24 kg/h6UbdbiiDiJiPOP DO Work Phone: [facility] Lyeuqp10-48-7872 10:56-0400Body ferbcisekwn36.5 [degF]Seven [employer] DO Work Phone: [facility]10-20-2025 10:56-0400Body .97 kgDenjame Padronlong DO Work Phone: [facility] HospitalCD[facility] Uefrkz36-40-2700 10:56-0400Diastolic blood mm[Hg]Seven Furlong DO Work Phone: [facility] Fnqjgl91-13-7596 10:56-0400Heart rate 91 /minDrenatois Furlong DO Work Phone: [facility] Bxsxnx91-57-5841 10:56-0400 Respiratory rate20 /minDennis Furlong DO Work Phone: [facility] Oamwgv26-84-3942 10:56-4542YhO5% (BldA) [Mass fraction]97 %Seven Padronlong DO Work Phone: [facility] Dcrcrl35-04-5146 10:56-0400Systolic blood jkaljvbm455 mm[Hg]Seven Padronlong DO Work Phone: [facility] Mhdzro61-75-3650 10:06-0400Body iosrdk450.9 cmDenjame Padronlong DO Work Phone: [facility] Bsvgns03-65-6068 10:06-0400Body mass index (BMI) [Ratio]26.04 kg/g5Dayvsu Furlong DO Work Phone: [facility] Tmgbpi44-13-4632 10:06-0400Body akknsdfkjjh04.39 [degF]Seven Padronlong DO Work Phone: [facility]CD[facility] Beyiwo21-95-5109 10:06-0400Body smaepr10.51 kgDennis Vitolong DO Work Phone: [facility] Huxhth23-17-8616 10:06-0400Diastolic blood tuodayac52 mm[Hg]Seven Padronlong DO Work Phone: [facility] Kshvof94-15-1234 10:06-0400Heart rate 75 /minDrenatois Vitolong DO Work Phone: [facility]CD[facility] Fxrshn03-97-9664 10:06-0400 Respiratory rate18 /Griffinis Vitolong DO Work Phone: [facility] Ikknds54-74-8514 10:06-9916QoR1% (BldA) [Mass fraction]98 %Seven Padronlong DO Work Phone: [facility]CD[facility] Dmdkui25-54-2450 10:06-0400Systolic blood nhnxinmc721 mm[Hg]Seven Padronlong DO Work Phone: [facility] Zvegun46-77-7306 09:57-0400Body rslboh904.9 cmSeven Santanang DO Work Phone: [facility]CD[facility] Psjqzv90-63-1560 09:57-0400Body mass index (BMI) [Ratio]26.5 kg/s3Appuzrjame Santanang DO Work Phone: [facility]CD[facility] Btwzrl91-43-2457 09:57-0400Body cxxbrdblxah01.7 [degF]Seven Santanang DO Work Phone: [facility] Lbroii44-80-2266 09:57-0400Body kiraro11.51 kgSeven Santanang DO Work Phone: [facility] Xweufg92-56-0495 09:57-0400Diastolic blood nhdqmjdi63 mm[Hg]Seven Padronlong DO Work Phone: [facility]CD[facility] Tiwybd72-47-3087 09:57-0400Heart rate 75 /Dee Padronlong DO Work Phone: [facility] HospitalNegorama04-03-2025 09:57-0400 Respiratory rate18 /Dee Padronlong DO Work Phone: [facility]CD[facility] Dkmcxy59-62-5770 09:57-1032TvF9% (BldA) [Mass fraction]97 %Seven Padronlong DO Work Phone: [facility] Lesydk60-50-6638 09:57-0400Systolic blood ihzmtxdr391 mm[Hg]Seven Furlong DO Work Phone: [facility] Bqbmgq56-73-4679 09:33-0400Body unghsa315.9 cmDennis Furlong DO Work Phone: [facility] Qktqcc97-85-1859 09:33-0400Body mass index (BMI) [Ratio]26.38 kg/x8Jailwh Furlong DO Work Phone: [facility] Nxtrhe97-23-3364 09:33-0400Body snwpgu84.24 kgDennis Furlong DO Work Phone: [facility] Dpbvqr06-79-4898 09:33-0400Diastolic blood piolietp50 mm[Hg]Seven Furlong DO Work Phone: [facility] Iqgziy12-51-8167 09:33-0400Systolic blood uurmnvct090 mm[Hg]Seven Furlong DO Work Phone: [facility] Jweuvr42-51-9845 10:02-0500Body broxoa573.9 cmDennis Furlong DO Work Phone: [facility] Amlspm80-28-3909 10:02-0500Body mass index (BMI) [Ratio]25.67 kg/j2Trvjsk Furlong DO Work Phone: [facility] Cowgsy28-63-0771 10:02-0500Body lvxezluzkqu39.9 [degF]Seven Furlong DO Work Phone: [facility] Fdibdl44-86-5688 10:02-0500Body .7 kgDennis Furlong DO Work Phone: [facility]01-03-2025 10:02-0500Diastolic blood kmrgpieh14 mm[Hg]Seven Furlong DO Work Phone: [facility]01-03-2025 10:02-0500Heart rate 53 /minDennis Furlong DO Work Phone: [facility]CD[facility] Bgfkqd43-81-5044 10:02-0500 Respiratory rate18 /minDennis Furlong DO Work Phone: [facility]01-03-2025 10:02-0576PeY7% (BldA) [Mass fraction]93 %Seven Santanang DO Work Phone: [facility] Grumon46-33-8811 10:02-0500Systolic blood pqajcgmf424 mm[Hg]Seven Palmer DO Work Phone: [facility] Lxjjug59-68-1625 10:43-0500Diastolic blood qfjnemgr72 mm[Hg]Sunita Mason MD Work Phone: [phone]CD[facility] Hizaie48-67-0637 10:43-0500Systolic blood xbtcqtyv892 mm[Hg]Sunita Mason MD Work Phone: [phone] Tnvhzp22-74-2436 10:39-0500Body ornppd101.9 cmMoerin Mason MD Work Phone: [phone]CD[facility] Zbzqbs69-67-0884 10:39-0500Body mass index (BMI) [Ratio]25.84 kg/k3QybpxrySunita Mason MD Work Phone: [phone])[facility] Lfzbvc80-01-1600 10:39-0500Body fftgiqbedhy71.01 [degF]Sunita Mason MD Work Phone: [phone] Losgml42-33-3581 10:39-0500Body gwbwox27.06 kgSunita Mason MD Work Phone: [phone]ervitaMedMD Ohngld59-43-7341 10:39-0500Heart rate 71 /minSunita Mason MD Work Phone: [phone] Pblsgj43-88-8150 10:39-0500 Respiratory rate16 /minSunita Mason MD Work Phone: [phone])[facility] Hospitalca [facility] CenterQvfrfm03-12-8862 10:39-0264HgT7% (BldA) [Mass fraction]98 %Sunita Mason MD Work Phone: [phone] Iwtajo83-25-5438 14:00-0400Body jdrevx956.9 cmDenjame Padronlong DO Work Phone: [facility] Hhyhtd89-50-1509 14:00-0400Body mass index (BMI) [Ratio]25.91 kg/h3Tdymor Vitolong DO Work Phone: [facility] Bgnhbn01-54-4299 14:00-0400Body .9 [degF]Seven Padronlong DO Work Phone: [facility] [facility] Ozqmlw75-96-6121 14:00-0400Body .2 kgDennis Vitolong DO Work Phone: [facility] Jxqxhp00-12-5070 14:00-0400Diastolic blood tzutulbm82 mm[Hg]Seven Padronlong DO Work Phone: [facility] Apbvdj99-03-4973 14:00-0400Heart rate 78 /minDennis Vitolong DO Work Phone: [facility] Cmpbai99-04-9098 14:00-9864VfM8% (BldA) [Mass fraction]96 %Seven Padronlong DO Work Phone: [facility] Posjuk95-00-9674 14:00-0400Systolic blood raafydkr012 mm[Hg]Seven Padronlong DO Work Phone: [facility] Vmrgnf56-73-2383 09:09-0400Body cioajn003.9 cmDennis Torresng DO Work Phone: [facility] Plwdjg98-68-0372 09:09-0400Body mass index (BMI) [Ratio]25.65 kg/b7Dyyihj Furlong DO Work Phone: [facility] Aizhgi18-16-4154 09:09-0400Body jjzseaedlac00.39 [degF]Seven Palmer DO Work Phone: [facility] HospitalNegorama10-02-2024 09:09-0400Body jvuwco12.61 kgDenjame Palmer DO Work Phone: [facility]CD[facility] Wrterq06-62-7423 09:09-0400Diastolic blood cbnytsax57 mm[Hg]Seven Palmer DO Work Phone: [facility]CD[facility] Gpdhug76-84-9602 09:09-0400Heart rate 76 /minDennis Torresng DO Work Phone: [facility] HospitalNegorama10-02-2024 09:09-4681PjV2% (BldA) [Mass fraction]96 %Seven Palmer DO Work Phone: [facility]CD[facility] Ywrdcn90-61-6995 09:09-0400Systolic blood mm[Hg]Seven Palmer DO Work Phone: [facility]CD[facility] Tqpiji75-79-7516 14:05-0400Body vexrvt810.9 cmDenjame Palmer DO Work Phone: [facility] HospitalNegorama07-02-2024 14:05-0400Body mass index (BMI) [Ratio]25.41 kg/d7Vvpxgvjame Palmer DO Work Phone: [facility]CD[facility] Nlrret33-95-0164 14:05-0400Body xavtwyicupc40.81 [degF]Seven Palmer DO Work Phone: [facility]CD[facility] Psaovo13-40-6460 14:05-0400Body .06 kgDenjame Palmer DO Work Phone: [facility]CD[facility] Guucwa38-54-1803 14:05-0400Diastolic blood udozufwo91 mm[Hg]Seven Plamer DO Work Phone: [facility]CD[facility] Tdpjhw66-89-7384 14:05-0400Heart rate 70 /minDrenatois Torresng DO Work Phone: [facility] Rxzbxj49-66-7107 14:05-0400 Respiratory rate18 /minDrenatois Vitolong DO Work Phone: [facility] Vraqch21-13-3546 14:05-4701AaF1% (BldA) [Mass fraction]98 %Seven Padronlong DO Work Phone: [facility] Cxciaa55-45-0888 14:05-0400Systolic blood ecphiqls340 mm[Hg]Seven Padronlong DO Work Phone: [facility] Jlytov04-52-5477 14:26-0400Body qcqakd725.9 cmSeven Padronlong DO Work Phone: [facility] Ruvqxj73-55-9190 14:26-0400Body mass index (BMI) [Ratio]25.39 kg/j4Rahtxm Furlong DO Work Phone: [facility] Etnfrb00-33-3840 14:26-0400Body vowgczcefgn42.81 [degF]Seven Padronlong DO Work Phone: [facility]CD[facility] Oxobvn89-94-0090 14:26-0400Body .02 kgSeven Santanang DO Work Phone: [facility] Pjcrlv73-51-4779 14:26-0400Diastolic blood dirwjlmg15 mm[Hg]Seven Padronlong DO Work Phone: [facility] Fdygbe90-24-6229 14:26-0400Heart rate 71 /Griffinis Vitolong DO Work Phone: [facility]CD[facility] Ruwpjz49-13-1716 14:26-0400 Respiratory rate18 /minDrenatois Vitolong DO Work Phone: [facility] Hlilax09-53-9632 14:26-1177QbD6% (BldA) [Mass fraction]94 %Seven Padronlong DO Work Phone: [facility] Cvgmqz54-27-5405 14:26-0400Systolic blood mm[Hg]Seven Furlong DO Work Phone: [facility] Npxnlj87-70-7995 16:03-0400Body istcdf339.9 cmDennis Furlong DO Work Phone: [facility] Gxisre80-78-9527 16:03-0400Body mass index (BMI) [Ratio]25.25 kg/f5Uodlrm Furlong DO Work Phone: [facility]03-19-2024 16:03-0400Body wppijf08.7 kgDennis Furlong DO Work Phone: [facility]03-19-2024 16:03-0400Diastolic blood mtrymynd18 mm[Hg]Seven Padronlong DO Work Phone: [facility] Ehxogq69-99-3682 16:03-0400Systolic blood mm[Hg]Seven Padronlong DO Work Phone: [facility] Asbbre25-85-8572 14:52-0400Body xwpdua465.9 cmNickie Hathaway PROTOTYPE FABRICATOR-AUTOMATED MANUFACTURING INSTRUCTOR Work Phone: [facility]03-11-2024 14:52-0400Body mass index (BMI) [Ratio]25.41 kg/m2Nickie Hathaway PROTOTYPE FABRICATOR-AUTOMATED MANUFACTURING INSTRUCTOR Work Phone: [facility]03-11-2024 14:52-0400Body ukrxkqrxlkj00.5 [degF]Nickie Hathaway PROTOTYPE FABRICATOR-AUTOMATED MANUFACTURING INSTRUCTOR Work Phone: [facility] Wlygau96-25-9558 14:52-0400Body ablkqc63.06 kgNickie Hathaway PROTOTYPE FABRICATOR-AUTOMATED MANUFACTURING INSTRUCTOR Work Phone: [facility]03-11-2024 14:52-0400Diastolic blood irepwvmu23 mm[Hg]Nickie Hathaway PROTOTYPE FABRICATOR-AUTOMATED MANUFACTURING INSTRUCTOR Work Phone: [facility]03-11-2024 14:52-0400Heart rate 64 /minNickie Hathaway PROTOTYPE FABRICATOR-AUTOMATED MANUFACTURING INSTRUCTOR Work Phone: [facility] Fuuvaq69-84-6171 14:52-0400 Respiratory rate20 /minNickie Hathaway PROTOTYPE FABRICATOR-AUTOMATED MANUFACTURING INSTRUCTOR Work Phone: [facility] Ktegza50-74-7129 14:52-1772SwU5% (BldA) [Mass fraction]96 %Nickie Hathaway APRN-AUTOMATED MANUFACTURING INSTRUCTOR Work Phone: [facility] Vopfjm14-96-9538 14:52-0400Systolic blood sonmxxyb630 mm[Hg]Nickie Hathaway APRN-AUTOMATED MANUFACTURING INSTRUCTOR Work Phone: [facility] Encounters Encounter DateEncounter TypeCare ProviderFacilityStart: 28-10-1554obtmufungl [facility]: 03-11-2025 End: 87-02-0307xmhgawzwjvIVEMCincinnati VA Medical Centertart: 02-24-2025 End: 92-53-7509Ugegbg outpatient visit 25 minutesSeven Dent Vitopitaamol DO Work Phone: [facility] - Family MedicineComment on above:Primary hypertension (Primary Dx); Acquired hypothyroidism; Prediabetes; Hypercholesterolemia; Persistent insomnia; Post-nasal drainage; XerostomiaStart: 02-24-2025 End: 90-03-8084yvewzgcpamSYLXLB G FURLONGMercy [facility] Ambulatory PPGStart: 02-09-2025 End: 39-20-1797WeaxldBetejn G Torresng DO Work Phone: [facility] - Family MedicineStart: 01-23-2025 End: 52-08-8519QozoeeLzgxxfd Boggs CMAProMedica Physicians Internal Medicine - Family MedicineComment on above:Other insomniaStart: 01-21-2025 End: 97-45-2800ZityhhLzahwb G Vitolong DO Work Phone: [facility] - Family MedicineStart: 62-66-2365abhvziihjbPADNJVan Wert County Hospitaltart: 11-29-2024 End: 87-15-2053Whcrxs Benjamin Padronlong DO Work Phone: [facility] Medicine - Family MedicineStart: 11-28-2024 End: 57-02-0333Ecdmwz-up encounterSeven Padronlong DO Work Phone: [facility] Medicine - Family MedicineComment on above: DEXA SCANStart: 11-22-2024 End: 75-22-8494Qizaxf outpatient visit 15 minutesSeven Santanang DO Work Phone: [facility] Medicine - Family MedicineComment on above:Persistent insomnia (Primary Dx); Asymptomatic menopausal state; Osteopenia of both hipsStart: 11-22-2024 End: 68-46-4938whxcnuavxvBQOTIN [facility] Ambulatory PPGStart: 11-13-2024 End: 25-75-3476NkbiulAfqzqi G Furlong DO Work Phone: [facility] - Family MedicineComment on above:Primary hypertensionStart: 10-30-2024 End: 24-56-2751AomcygUvvrRenetta Das [facility] Internal Medicine - Family MedicineStart: 10-29-2024 End: 45-83-9252YldzoaBxrmwa G Furlong DO Work Phone: [facility] - Family MedicineStart: 10-10-2024 End: 05-19-9071swlgrsmjurBOGFVDC [facility] Hospitaltart: 10-03-2024 End: 16-97-7328MmnehpDcinDemario Turpinca Phys[facility] Internal Medicine - Family MedicineComment on above:Other insomnia; Primary hypertensionStart: 10-02-2024 End: 06-84-7588Ybayfj OnlySeven Dent Furlong DO Work Phone: [facility] Medicine - Family MedicineComment on above:Primary hypertensionStart: 60-16-6011vysxshysufLQOF [facility] Hospitaltart: 09-17-2024 End: 76-74-0951UdhegnKoztf Postell [facility] Internal Medicine - Family MedicineComment on above:Primary hypertension; Other insomniaStart: 09-04-2024 End: 13-88-0661MdrholYmpjfb G Furlong DO Work Phone: [facility] Internal Medicine - Family MedicineComment on above:Primary hypertensionStart: 09-02-2024 End: 82-31-5779Ksqoxg OnlyDennis G Furlong DO Work Phone: [facility] Medicine - Family MedicineComment on above:Other insomniaStart: 08-27-2024 End: 33-98-4596PcgmxdWssayht Boggs [facility] Internal Medicine - Family MedicineStart: 08-26-2024 End: 65-90-4546Tqthtf OnlyDennis G Furlong DO Work Phone: [facility] Internal Medicine - Family MedicineComment on above:Other insomniaStart: 08-24-2024 End: 74-75-1850IvygesJuemue G Furlong DO Work Phone: [facility] Internal Medicine - Family MedicineComment on above:Other insomniaStart: 08-08-2024 End: 70-09-3049Ubhtpw outpatient visit 25 minutesDennis G Furlong DO Work Phone: [facility] Internal Medicine - Family MedicineComment on above:Persistent insomnia (Primary Dx); 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 ([facility]-HCC); Overweight (BMI 25.0-29.9); Osteopenia of lumbar spine; DizzinessStart: 08-08-2024 End: 55-99-9420klgeyhghviCMYOAS G FURLONGMercy Health St[facility] Hospitalca [facility] Ambulatory PPGStart: 08-01-2024 End: 51-10-7738Vodyfpo encounter procedureDennis G Furlong DO Work Phone: [facility] Internal Medicine - Family MedicineComment on above:Medicare annual wellness visit, subsequent (Primary Dx); Screening for depressionStart: 08-01-2024 End: 46-56-7501vtsocxtcydPGEQBUSchuyler Memorial Hospital Ambulatory PPGStart: 07-08-2024 End: 08-87-9573JbqwopSejrt GeeCHI St[facility] [place], [place]ca [facility]icians [facility] MedicineStart: 06-27-2024 End: 99-21-1887YsnqfnXregu GeeErlanger [facility] Hospital Phys[facility] Internal Medicine - Family MedicineComment on above:Other insomniaStart: 05-31-2024 End: 70-62-2947NafvqaAumwfazd Johnson [facility] MedicineStart: 05-10-2024 End: 90-79-5558pfuvidfwcfZABACAProMedica Flower Hospitaltart: 05-10-2024 End: 26-54-5164Hppdhs outpatient visit [address] minutesSt[address] Francis Hospitaljame Vitopita DO Work Phone: [facility] Internal Medicine - Family MedicineComment on above:Insomnia, unspecified type (Primary Dx); Chronic cough; 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 ([facility]-HCC); Complete AV block ([facility]); Chronic diastolic heart failure ([facility]); Bilateral carotid artery stenosisStart: 05-10-2024 End: 51-64-2988glkxyndcibCOWIGTSchuyler Memorial Hospital Ambulatory PPGStart: 04-29-2024 End: 17-02-5473SvtwxpYxtui GeeErlanger [facility] Hospital Physicians Internal Medicine - Family MedicineComment on above:Primary hypertensionStart: 04-26-2024 End: 06-96-6483QcllukExhfrr G Furlong DO Work Phone: [facility] Internal Medicine - Family MedicineStart: 2024 End: 98-88-5040Rzwgpp outpatient new 45 minutesSunita Mason MD Work Phone: [facility] Systemst Vascular SurgeryComment on above:Dizziness; Stenosis of right carotid arteryStart: 04-10-2024 End: 56-51-9144blkayyqrowIAJMJYH [facility] Hospitaltart: 04-09-2024 End: 19-66-3891QqoccnWxyqxi G Furlong DO Work Phone: [facility] - Family MedicineStart: 04-08-2024 End: 01-90-9619NxfsldKtwwvd G Furlong DO Work Phone: [facility] - Family MedicineStart: 04-02-2024 End: 46-25-9330ynhzedkdwuKNRJ [facility] Hospitaltart: 03-28-2024 End: 83-20-1475QziswfJlxenlhSherrill Kamara APRN-[employer] CONSULTANT Work Phone: [facility] Medicine - Family MedicineComment on above:Other insomniaStart: 03-15-2024 End: 28-53-5037NgaqqwKepxtt G Furlong DO Work Phone: [facility] - Family MedicineStart: 03-14-2024 End: 50-75-3516Wfimms Benjamin Padronlong DO Work Phone: [facility] Medicine - Family MedicineComment on above:Dizziness (Primary Dx); Stenosis of right carotid arteryStart: 03-05-2024 End: 28-42-5055isnrefyoyfXVJGLN [facility] Ambulatory PPGStart: 03-05-2024 End: 47-40-5899Paydwo outpatient visit 15 minutesDenjame Santanang DO Work Phone: [facility] Medicine - Family MedicineComment on above:Dizziness (Primary Dx)Start: 03-04-2024 End: 94-68-0266Odarfbnjj encounterSoraida Lemon CMAProMedica Physicians Internal Medicine - Family MedicineStart: 02-08-2024 End: 04-21-4293Bfwhsw Benjamin Padronlong DO Work Phone: [facility] MedicineStart: 02-07-2024 End: 82-31-0972dghhjygfpiVRNIHESamaritan Hospitaltart: 02-07-2024 End: 61-88-5315Mgafiw outpatient visit 25 minutesSeven Santanang DO Work Phone: [facility] Internal Medicine - Family MedicineComment on above: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 Internal Medicine - Family MedicineComment on above:Primary hypertensionStart: 01-01-2024 End: 65-53-7505ZpeflzHlejrsk J Castillo PROTOTYPE FABRICATOR-[employer] CONSULTANT Work Phone: [facility] Internal Medicine - Family MedicineComment on above:Other insomniaStart: 12-04-2023 End: 98-86-5942WhzgvqFvfgtp G Furlong DO Work Phone: [facility] Internal Medicine - Family MedicineComment on above:Other insomniaStart: 11-29-2023 End: 10-66-7421HdygnoIbuy [facility] HospitalProMedica [facility] Internal Medicine - Family MedicineComment on above:Acquired hypothyroidismStart: 11-07-2023 End: 22-16-8303Nkejjh outpatient visit 15 minutesDenjame Santanang DO Work Phone: [facility] Internal Medicine - Family MedicineComment on above:Persistent insomnia (Primary Dx); Gastroesophageal reflux disease, unspecified whether esophagitis present; OverweightStart: 10-11-2023 End: 93-16-7570AimswgJwskfq G Furlong DO Work Phone: [facility] Internal Medicine - Family MedicineStart: 09-27-2023 End: 64-13-4216ugnzojacedDMXOTNZ S RUSHERNot AvailableStart: 09-13-2023 End: 29-54-3526LhpaabGyuyfa Jailene Padronlong DO Work Phone: [facility] Internal Medicine - Family MedicineStart: 09-11-2023 End: 60-68-2065HidiapAnljyv G Furlong DO Work Phone: [facility] Medicine - Family MedicineStart: 09-05-2023 End: 44-70-7071WiviqxUakijd G Furlong DO Work Phone: [facility] - Medical OncologyStart: 08-17-2023 End: 72-90-3284Quagev OnlySeven Santanang DO Work Phone: [facility] Medicine - Family MedicineStart: 08-16-2023 End: 40-44-0727AifhktMqmml Postell CMAProMedica Physicians Internal Medicine - Family MedicineComment on above:Other insomniaStart: 08-08-2023 End: 18-59-2617ftemarnrniSWDEVC G FURLONGProBucyrus Community Hospitaltart: 08-08-2023 End: 58-77-8212Jeqkmm outpatient visit 25 minutesSeven Santanang DO Work Phone: [facility] Internal Medicine - Family MedicineComment on above: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 (CMS-HCC) (Primary Dx); Prediabetes; Persistent insomnia; Overweight; Other insomnia; Medication monitoring encounter; Acquired hypothyroidismStart: 97-22-8897Saptvp OnlySeven Santanang DO Work Phone: [facility] - Family MedicineStart: 27-10-2627PuwkwrZyqksx G Furlong DO Work Phone: [facility] Internal Medicine - Family MedicineComment on above:Acquired hypothyroidismStart: 07-25-2023 End: 77-58-1363Myiujug encounter procedureSeven Santanang DO Work Phone: [facility] Internal Medicine - Family MedicineComment on above:Medicare annual wellness visit, subsequent (Primary Dx); Screening for depressionStart: 92-04-9658KmdmmvAllcas G Furlong DO Work Phone: [facility] Internal Medicine - Family MedicineComment on above:Acquired hypothyroidismStart: 90-85-9938DrdccmUzpra Gee [facility] HospitalMed[facility] Internal Medicine - Family MedicineComment on above:Other insomnia (Primary Dx)Start: 64-88-6932Lszphv Sanford Hathaway PROTOTYPE FABRICATOR-AUTOMATED MANUFACTURING INSTRUCTOR Work Phone: [facility] Internal [facility]tart: 07-17-2023 End: 50-09-9865ihcfccckhgJQGP R [facility] Hospitaltart: 07-17-2023 End: 38-95-6567Edzatz outpatient visit 15 minutesNickie Hathaway PROTOTYPE FABRICATOR-AUTOMATED MANUFACTURING INSTRUCTOR Work Phone: [facility] Internal Medicine - Family MedicineComment on above:Viral upper respiratory tract infection (Primary Dx); 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 ([facility]-HCC); Acquired hypothyroidismStart: 47-71-7053Zmtcix Benjamin Palmer DO Work Phone: [facility] Internal Medicine - Family MedicineComment on above:Persistent insomnia (Primary Dx)Start: 05-18-2023 End: 04-70-6100blwwmdjscnGFHTN A POCOSNot AvailableStart: 41-64-6476RuhmrfQstym Gee [facility]ca [facility] Internal Medicine - Family MedicineComment on above:Acquired hypothyroidism; Persistent insomnia; Primary hypertensionStart: 09-78-9421NyoweuOkgbdds J Castillo PROTOTYPE FABRICATOR-[employer] CONSULTANT Work Phone: [facility] MedicineStart: 04-06-2023 End: 30-53-3629qcntmrmnnsMMFLI A POCOSNot AvailableStart: 03-23-2023 End: 73-25-0951ohwegqkieaMTXXY A POCOSNot AvailableStart: 09-08-2022 End: 46-73-4753dqsiksaksoHPUK H CHACKOFacility:K7Flrhz: 01-11-2022 End: 54-90-0860fnmbasezvwNT SEVEN SANTANANGFacility:G9Knwoy: 12-15-2021 End: 06-50-8373cmywwjyfnzNVIXT MASROORFacility:X8Pddgt: 11-29-2021 End: 90-38-2273Czjvhpmizz and management of inpatientSaqib MasroorFacility:[facility] Start: 11-26-2021 End: 67-74-4176rucjxsmljyBvosl MasroorFacility:[facility]Start: 11-19-2021 End: 67-71-9171wpahqtzashUNLXF MASROORFacility:P4Jwgug: 75-43-6222kzkcafgvpfKCAE H CHACKOFacility:R3Lstnd: 58-35-6936ehckvpdvjwOORH H CHACKOFacility:P1Qpwvn: 10-14-2021 End: 51-26-6594xoxxzguwldWHRR CHACKOFacility:[facility]ITALStart: 09-21-2021 End: 24-03-9643nquyvwtkleMOXJ H CHACKOFacility:H8Kmirz: 08-03-2021 End: 85-56-7413Mllinjmtjm and management of inpatientASIF MAHMOODFacility:[facility] Procedures DateProcedureProcedure DetailPerforming ClinicianStart: 89-80-5216Qvngc depression screening assessmentDennis Furlong DO Work Phone: Start: 64-65-1106Sahyq depression screening assessment Seven Furlong DO Work Phone: Start: 38-69-4187Pwbliv-up visitFollow-Janet SANTANANGStart: 94-68-1931Ywviv depression screening assessmentDennis Furlong DO Work Phone: Start: 06-18-9025Qjlup depression screening assessment Seven Furlong DO Work Phone: Start: 42-85-2170Yhrtx depression screening assessment Seven Furlong DO Work Phone: Start: 54-01-1470BSEC INFLUENZA A/INFLUENZA B/SARS-COV-2 VERITORDenjame G Furlong DO Work Phone: Start: 56-86-9929Llxxx depression screening assessment Seven Furlong DO Work Phone: Start: 81-24-3138Koxqk depression screening assessment Seven Furlong DO Work Phone: Start: 87-09-5613Cfxdg depression screening assessment Seven Furlong DO Work Phone: Start: 24-76-3271Ekxtl depression screening assessment Seven Furlong DO Work Phone: Start: 62-58-0631Ndczu depression screening assessment Nickie Hathaway PROTOTYPE FABRICATOR-AUTOMATED MANUFACTURING INSTRUCTOR Work Phone: Start: 76-31-0966Ofugp depression screening assessment Roxy Kamara PROTOTYPE FABRICATOR-[employer] CONSULTANT Work Phone: Start: 02-63-7252Hwlzxqga screenPAUL CHACKOComment on above:Performed By: #### [id number] #### [address] Plan of Treatment DateCare ActivityDetailAuthorStart: 14-57-3441MHqN,Tdap and Td Vaccines (3 - Td or Tdap)DTaP,Tdap and Td Vaccines (3 - Td or Tdap)[facility] SystemStart: 09-22-7810Djcfdyutng ScreeningDepression ScreeningProMedica Health SystemStart: 51-93-1508Tjum Risk ScreeningFall Risk ScreeningProMi[facility] Hospitalca Health SystemStart: 33-24-1125Jjjemzh ScreeningTobacco ScreeningGifford Medical CenterMedica Health SystemStart: 69-49-1416Ftgfiemkpm ScreeningDepression ScreeningProMedica Health SystemStart: 34-70-2719Wprf Risk ScreeningFall Risk ScreeningProMedica Health SystemStart: 19-98-6604Uqiibgx ScreeningTobacco ScreeningProMedica Health SystemStart: 04-00-4254Iykdqdchoo ScreeningDepression ScreeningProMedica Health SystemStart: 53-89-1752Qnmoudn ScreeningTobacco ScreeningProMedica Health SystemStart: 08-05-2025 End: 21-27-8547Ujyytpa encounter sjkuzixfu81/31/2026 10:40 AM EDT Office Visit [facility] [address] [place] [address] HspDpyoau Physicians Internal [facility] MedicineStart: 70-57-7480Srdkyqxldp ScreeningDepression ScreeningProKindred Hospital [facility] SystemStart: 03-27-2026Medicare Annual Wellness VisitMedicare Annual Wellness VisitRiverview Health Institute SystemStart: 65-13-3733Nnnwcom ScreeningTobacco ScreeningProKindred Hospital [facility] SystemStart: 18-41-1815Drzd Risk ScreeningFall Risk ScreeningProKindred Hospital [facility] SystemStart: 05-27-2025 End: 32-54-2317Uuwppyl encounter oyxhfttqi99/20/2026 2:15 PM EST Office Visit [facility] [address] [place] [address] Seven Palmer, [address], [place] [address] [facility] Hospitaltart: 12-71-2551Azwixuc Screening Tobacco ScreeningRiverview Health Institute SystemStart: 30-35-2782JATWO-19 Vaccine ( season)COVID-19 Vaccine ( season)[facility] Start: 00-18-1022Oevyh BMI ScreeningAdult BMI ScreeningSuburban Community Hospital & [facility] Start: 92-20-7357Mdsjokxsjt ScreeningDepression [facility]eningR[facility] Institute [facility] Start: 92-20-7029Jkmd Risk ScreeningFall Risk ScreeningSub[facility] Start: 88-49-9551Jrblnja ScreeningTobacco ScreeningRiverview Health Institute SystemStart: 02-24-2025 End: 81-98-1543Urpvqcw encounter /20/2025 11:00 AM EDT Office Visit [facility] [address] [place] [address] Seven Palmer, [address], [place] [address] [facility] Family MedicineStart: 64-18-2276Mrrko BMI ScreeningAdult BMI ScreeningProKindred Hospital Lima SystemStart: 43-82-1539Xctahlydlo ScreeningDepression ScreeningProKindred Hospital Lima SystemStart: 22-47-1399Qxsj Risk ScreeningFall Risk ScreeningProKindred Hospital Lima SystemStart: 92-61-6636Hoonxnz ScreeningTobacco ScreeningProKindred Hospital Lima SystemStart: 70-74-1015DWSRP-19 Vaccine ( season)COVID-19 Vaccine ()[facility] SystemStart: 84-97-3859Buszujeal vaccinationInfluenza VaccineProKindred Hospital Lima SystemStart: 11-22-2024 End: 09-14-9633TYA Skeletal system Views for bone densityDexa scan central skeletal Imaging Routine Asymptomatic menopausal state Expected: 11/22/2024, Expires: 11/22/2025[facility] Work Phone: Comment on above:Expected: 11/22/2024, Expires: 11/22/2025Start: 11-22-2024 End: 99-09-6893ccyeuicepn97/18/2025 10:00 AM EDT Support Visit [facility] [address] [place] [address] Seven Palmer, [address] [place] [address] [facility] Family MedicineStart: 67-38-4309Qbvzc BMI ScreeningAdult BMI ScreeningProKindred Hospital L[facility] SystemStart: 08-29-3295Qgyrefwgzv ScreeningDepression ScreeningProKindred Hospital L[facility] SystemStart: 13-46-9156Dyme Risk ScreeningFall Risk ScreeningRiverview Health Institute SystemStart: 34-83-8847Ucjvwev ScreeningTobacco ScreeningRiverview Health Institute SystemStart: 56-46-0189EPHEJ-19 Vaccine ( season)COVID-19 Vaccine ( season)[facility] SystemStart: 08-08-2024 End: 15-90-8825Dznqfdu encounter qnpukhnev81/03/2025 10:00 AM EDT Office Visit [facility] [address] [place] [address] Seven Palmer, [address], [facility] [address] [facility] MedicineStart: 31-15-5143Ucgym BMI ScreeningAdult BMI ScreeningProKindred Hospital L[facility] SystemStart: 07-77-4257Ptweufxqsh ScreeningDepression ScreeningProKindred Hospital L[facility] SystemStart: 50-34-3888Uote Risk ScreeningFall Risk ScreeningProKindred Hospital [facility] SystemStart: 58-32-8735Hdozkvv ScreeningTobacco ScreeningProKindred Hospital Lima SystemStart: 03-99-5449CMoW,Tdap and Td Vaccines (2 - Td or Tdap)DTaP,Tdap and Td Vaccines (2 - Td or Tdap)[facility] SystemStart: 07-25-2024 End: 92-13-0187Emjgfcw encounter uehcajlmw36/20/2025 3:00 PM EDT [facility] [address] [place] [address] [facility] MedicineStart: 66-59-4561Oozcx BMI ScreeningAdult BMI ScreeningProKindred Hospital [facility] SystemStart: 25-60-4974Amviinjsuo ScreeningDepression ScreeningProKindred Hospital [facility] SystemStart: 92-15-6951Thcd Risk ScreeningFall Risk ScreeningProKindred Hospital [facility] SystemStart: 03-19-2025Medicare Annual Wellness VisitMedicare Annual Wellness VisitRiverview Health Institute SystemStart: 36-43-7221Brsxvcn ScreeningTobacco Screening [facility] SystemStart: 13-11-6708QTRJH-19 Vaccine (8 - Moderna risk )COVID-19 Vaccine (8 - Moderna risk )[facility] SystemStart: 30-22-0628Illjh BMI ScreeningAdult BMI ScreeningProMiami [facility] Hospitalca Health SystemStart: 59-02-1711Rvtybxbcwp ScreeningDepression ScreeningProMedica Health SystemStart: 17-90-6316Yjlc Risk ScreeningFall Risk ScreeningProMiami [facility] Hospitalca Health SystemStart: 98-92-3628Vbjfxmy ScreeningTobacco ScreeningProMiami [facility] Hospitalca Health System Start: 05-10-2024 End: 96-64-5557LC Chest PA and LateralX-ray chest 2 views Imaging Routine Chronic cough Complete AV block (CMS-HCC) Expected: 05/10/2024,Expires: 05/10/2025[facility] SystemComment on above:Expected: 05/10/2024, Expires: 05/10/2025Start: 05-10-2024 End: 79-77-7258Jncziyz encounter quqowlkxf61/03/2025 10:00 AM EST Office Visit [facility] [address] [place] [address] Seven Palmer, [address] [facility] [place] [address] [facility] Family MedicineStart: 90-01-0220Pscya BMI ScreeningAdult BMI ScreeningProKindred Hospital [facility] SystemStart: 68-02-5541Swpdxhddwk ScreeningDepression ScreeningProKindred Hospital [facility] SystemStart: 63-51-5798Ugno Risk ScreeningFall Risk ScreeningProKindred Hospital [facility] SystemStart: 46-96-4411Wsjedxd ScreeningTobacco ScreeningRiverview Health Institute SystemStart: 2024 End: 48-97-4474Nqnvugw encounter /05/2024 10:40 AM EST Office Visit [facility] [address] [place] [address] Sunita Mason MD [address], [address] [address] [facility] SurgeryStart: 71-25-6928MVBQB-19 Vaccine (8 )COVID-19 Vaccine ()[facility] Pointtart: 24-33-6523FAPFY-19 Vaccine ()COVID-19 Vaccine ()[facility] Start: 03-05-2024 End: 64-93-7904MA Carotid arteries - bilateralVas carotid duplex bilateral Vascular Ultrasound Routine Dizziness Expected: 03/05/2024, Expires: 03/05/2025 [facility] Work Phone: Comment on above:Expected: 03/05/2024, Expires: 03/05/2025Start: 02-07-2024 End: 80-20-9144Yrpccvv encounter ysfuxwdwr27/02/2024 9:00 AM EDT Office Visit [facility] [address] [place] [address] Seven Palmer, [address], [facility] [address] [facility] Family MedicineStart: 50-96-0086PGYOL-19 Vaccine ()COVID-19 Vaccine ()[facility] Start: 80-59-8799Cfikjfbap vaccinationInfluenza VaccineSelect [facility] Start: 11-07-2023 End: 07-50-2377Yjlwhkd encounter giigrqgvr04/02/2024 2:15 PM EDT Office Visit [facility] [address] [place] [address] Seven Palmer DO [address], [facility] [address] [facility] Family MedicineStart: 08-08-2023 End: 88-52-8674Nidxbey encounter bdfgnsits95/02/2024 3:30 PM EDT Office Visit [facility] [address] [place] [address] Seven Palmer, DO [address] [place] [address] [facility] MedicineStart: 07-25-2023 End: 81-21-5321Wowyhrx encounter /19/2024 4:00 PM EDT [facility] [address] [place] [address] [facility] MedicineStart: 03-16-2024Medicare Annual Wellness VisitMedicare Annual Wellness VisitRiverview Health Institute SystemStart: 82-99-3334BRVSV-19 Vaccine ()COVID-19 Vaccine ()[facility] SystemStart: 28-08-9057LPYGG-19 Vaccine ()COVID-19 Vaccine ()[facility] SystemStart: 43-82-1613Xfent BMI Follow Up PlanAdult BMI Follow Up PlanRiverview Health Institute System End: 07-27-3807Ursrd metabolic 2000 panel - Serum or PlasmaBasic Metabolic Panel Lab Routine 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 ([facility]) 1 Occurrences starting 02/07/2024 until 02/06/2025Pro[facility] SystemComment on above:1 Occurrences starting 02/07/2024 until 02/06/2025 End: 75-65-9236PXU panel - Blood by Automated countCBC Lab Routine 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 ([facility]-HCC) 1 Occurrences sta rting 02/07/2024 until 02/06/2025Pro[facility] SystemComment on above:1 Occurrences starting 02/07/2024 until 02/06/2025 End: 73-30-6521Qwlzcrkturpep metabolic 2000 panel - Serum or PlasmaComprehensive metabolic panel Lab Routine Primary hypertension 1 Occurrences starting 02/24/2025 until 02/24/2026[facility] Work Phone: Comment on above:1 Occurrences starting 02/24/2025 until 02/24/2026omprehensive metabolic 2000 panel - Serum or Plasma Comprehensive metabolic panel Lab Routine Primary hypertension 02/24/2025 11:31 AM Siklu End: 90-53-5743Ruis Screen, UrineDrug Screen, Urine Lab Routine Insomnia, unspecified type 1 Occurrences starting 05/10/2024 until 05/10/2025[facility] Work Phone: Comment on above:1 Occurrences starting 05/10/2024 until 05/10/2025 End: 04-57-6463Rybtbhgujn A1c/Hemoglobin.total in BloodHemoglobin A1c Lab Routine Prediabetes 1 Occurrences starting 02/07/2024 until 02/06/2025[facility] CenterEnGeneICComment on above:1 Occurrences starting 02/07/2024 until 02/06/2025 End: 12-48-4462Lebbktzmdd A1c/Hemoglobin.total in BloodHemoglobin A1c Lab Routine Prediabetes 1 Occurrences starting 02/24/2025 until 02/24/2026[facility] CenterEnGeneICComment on above:1 Occurrences starting 02/24/2025 until 02/24/2026 Hemoglobin A1c/Hemoglobin.total in BloodHemoglobin A1c Lab Routine Prediabetes 02/24/2025 11:31 AM Siklu End: 64-10-3292Pfztc 1995 panel - Serum or PlasmaLipid profile Lab Routine Hypercholesterolemia 1 Occurrences starting 02/24/2025 until 02/24/2026[facility] CenterEnGeneICComment on above:1 Occurrences starting 02/24/2025 until 02/24/2026Lipid 1995 panel - Serum or PlasmaLipid profile Lab Routine Hypercholesterolemia 02/24/2025 11:31 AM Siklu End: 64-69-7842Apwhu panelLipid panel Lab Routine Hypercholesterolemia 1 Occurrences starting 02/07/2024 until 02/06/2025[facility] CenterEnGeneICComment on above:1 Occurrences starting 02/07/2024 until 02/06/2025 End: 99-55-4354Ackmzxony [Mass/volume] in Serum or PlasmaMagnesium Lab Routine 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 ([facility]-H[facility]) 1 Occurrences starting 02/07/2024 until 02/06/2025[facility] SystemComment on above:1 Occurrences starting 02/07/2024 until 02/06/2025 End: 41-08-4135Ggdlkghmxax Hormone, intactParathyroid Hormone, intact Lab Routine 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 ([facility]-H[facility]) 1 Occurrences starting 02/07/2024 until 02/06/2025ProMi[facility] HospitalCDP SystemComment on above:1 Occurrences starting 02/07/2024 until 02/06/2025 End: 83-27-7254Lmuiqcrjb [Mass/volume] in Serum or PlasmaPhosphorus Lab Routine 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 ([facility]-H[facility]) 1 Occurrences starting 02/07/2024 until 02/06/2025[facility]Med[facility] SystemComment on above:1 Occurrences starting 02/07/2024 until 02/06/2025 End: 23-74-4947Bpatavq profile includes TSH WK5Pygagcc profile includes TSH FT4 Lab Routine Acquired hypothyroidism 1 Occurrences starting 02/07/2024 until 02/06/2025[facility] Work Phone: Comment on above:1 Occurrences starting 02/07/2024 until 02/06/2025 End: 93-98-2188Sahjllw profile includes TSH VD9Xxahkjs profile includes TSH FT4 Lab Routine Acquired hypothyroidism 1 Occurrences starting 02/24/2025 until 02/24/2026ProMi[facility] HospitalCDP SystemComment on above:1 Occurrences starting 02/24/2025 until 02/24/2026Thyroid profile includes TSH NM9Uahpoay profile includes TSH FT4 Lab Routine Acquired hypothyroidism 02/24/2025 11:31 AM EDT [facility] End: 04-66-5022Wmsfc [Mass/volume] in Serum or PlasmaUric acid Lab Routine 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 ([facility]) 1 Occurrences starting 02/07/2024 until 02/06/2025ProMi[facility] HospitalCDP SystemComment on above:1 Occurrences starting 02/07/2024 until 02/06/2025 End: 79-49-0461Kbdfycw D 25 hydroxyVitamin D 25 hydroxy Lab Routine 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 ([facility]-HCC)1 Occurrences starting 02/07/2024 until 02/06/2025[facility] HospitalComment on above:1 Occurrences starting 02/07/2024 until 02/06/2025 Immunizations Immunization DateImmunizationNotesCare UozinjwjGqjbcirm90-32-5673kvseahrfb, high dose seasonal, preservative-freeDennis Furlong DO Work Phone: [facility]09-18-2024RSV, recombinant, protein subunit RSVpreF, adjuvant reconstituted, 0.5 mL, PFDennis Furlong DO Work Phone: [facility] HospitalXvvigw69-49-2496onbhksvft virus vaccine, unspecified formulationDennis Furlong DO Work Phone: [facility] HospitalEashxl82-97-3915tmukbjkan, high dose seasonal, preservative-freeValerie Kamara PROTOTYPE FABRICATOR-[employer] CONSULTANT Work Phone: [facility] HospitalDtoyiq16-56-1567ckltvlcbb virus vaccine, unspecified formulationDennis Furlong DO Work Phone: [facility] HospitalLfnhzw55-81-1796Xywctwlig, High-dose, QuadrivalentValerie Kamara PROTOTYPE FABRICATOR-[employer] CONSULTANT Work Phone: [facility] HospitalWqwuaf52-67-0732treoslepp, live, intranasal, quadrivalentValerie Kamara PROTOTYPE FABRICATOR-[employer] CONSULTANT Work Phone: [facility]01-19-2022zoster vaccine recombinantValerie Kamara PROTOTYPE FABRICATOR-[employer] CONSULTANT Work Phone: [facility] HospitalMgeasj76-95-6604Nwohstqbt, High-dose, QuadrivalentValerie Kamara PROTOTYPE FABRICATOR-[employer] CONSULTANT Work Phone: [facility]08-23-2021zoster vaccine recombinantValerie Kamara PROTOTYPE FABRICATOR-[employer] CONSULTANT Work Phone: [facility]08-13-2021zoster vaccine recombinantValerie Kamara PROTOTYPE FABRICATOR-[employer] CONSULTANT Work Phone: [facility] HospitalMvxdhf09-77-3399ZWEDD-59, mRNA, LNP- S, PF, 100mcg/0.5mL DoseValerie Kamara PROTOTYPE FABRICATOR-[employer] CONSULTANT Work Phone: [facility] HospitalZigctd11-20-5094DHZEJ-20, mRNA, LNP- S, PF, 100mcg/0.5mL DoseValerie Kamara PROTOTYPE FABRICATOR-[employer] CONSULTANT Work Phone: [facility] HospitalFynpna58-06-1807Waxhiurln, High-dose, QuadrivalentValerie Kamara PROTOTYPE FABRICATOR-[employer] CONSULTANT Work Phone: [facility] HospitalNinrqs85-54-0881xjnkeukui, injectable, quadrivalent, contains preservativeValerie Kamara PROTOTYPE FABRICATOR-[employer] CONSULTANT Work Phone: [facility] HospitalTtoakq83-70-3013xsazjvfmr, high dose seasonal, preservative-freeValerie Kamara PROTOTYPE FABRICATOR-[employer] CONSULTANT Work Phone: [facility] HospitalZmappu18-56-3895ikjuegthh, seasonal, injectableValerie Kamara PROTOTYPE FABRICATOR-[employer]X CONSULTANT Work Phone: [facility] HospitalDhjlrl40-39-8363Glrfuewm trivalent influenza vaccine, adjuvanted, preservative freeValerie Kamara PROTOTYPE FABRICATOR-[employer] CONSULTANT Work Phone: [facility] HospitalTobpyv67-08-1210rhcglytuo, high dose seasonal, preservative-freeValerie Kamara PROTOTYPE FABRICATOR-[employer] CONSULTANT Work Phone: [facility]09-23-2016zoster vaccine, live Roxy Kamara PROTOTYPE FABRICATOR-[employer] CONSULTANT Work Phone: [facility] HospitalPgehfh98-69-8186rpayxcgyb, high dose seasonal, preservative-freeValerie Kamara PROTOTYPE FABRICATOR-[employer] CONSULTANT Work Phone: [facility]03-31-2015tetanus toxoid, reduced diphtheria toxoid, and acellular pertussis vaccine, adsorbedValerie Kamara PROTOTYPE FABRICATOR-[employer] CONSULTANT Work Phone: [facility] HospitalQeoska93-22-7297jpalmglacmby conjugate vaccine, 13 valentValemiky Kamara PROTOTYPE FABRICATOR-[employer] CONSULTANT Work Phone: [facility] HospitalBgyhuk68-63-4363aloouvlhwtoy polysaccharide vaccine, 23 valentValemiky Kamara PROTOTYPE FABRICATOR-[employer] CONSULTANT Work Phone: [facility] Payers DatePayer CategoryPayerPolicy [id number] 2025Unknown [id number] 2023MedicareAETNA MEDICARE AETNA MEDICARE PLAN (HMO) [id number] 2023-Present [phone] [address] [place] [address] [id number] 2023Medicare HMO [id number] [id number]-[id number]-si[id number] [id number] 2.16.840.1.925257.3.57[id number] 2.16.840.1.883881.3.57[id number] 2.16.840.1.640326.3.579.[id number] 2.16.840.1.094984.3.579.2.24548-39-0630Iyjpirr4439494 2.16.840.1.861350.3.579.2.42681-15-3297Qpmmlpe7111510 2.16.840.1.625473.3.579.2.45306-66-3094Frlzlwg4079681 2.16.840.1.781537.3.579.2.05300-57-1426Dyzybiy9110735 2.16.840.1.424764.3.579.2.60044-98-9705Jvqlylm6089529 2.16840.1.089266.3.579.2.42119-57-3255Wqctckc1177285 2.16.840.1.795164.3.579.2.93175-23-0304Jvecuna3655376 2.16840.1.075256.3.579.2.59761-97-1790Qxtibqk9011955 2.16840.1.257461.3.579.2.182058-27-0038Jrkguyf1161831 2.16840.1.073787.3.579.2.174259-19-9303Fogphkb9640905 2.16840.1.502664.3.579.2.665461-78-4661Kixmohc537606 2.16840.1.436981.3.579.2.855220-10-0559Lhxjthw752379 2.16840.1.078506.3.579.2.958831-16-3713Zllqfvk327181427 2.16840.1.327029.3.579.2.041317-51-6906Jnxxtnz83500922 2.16.840.1.708655.3.579.2.226506-35-5561Pocbzsz53654623 2.16.840.1.360377.3.579.2.333222-44-4610Sfyqjuh05598143 2.16840.1.548976.3.579.2.2[id number] 2..0.1.321252.3.57[id number] 2..840.1.436407.3.579.2.632450-05-7544Ooiibrz695975596 2..0.1.343765.3.579.2.952185-45-8996Gcgucpk990755183 2..0.1.679415.3.579.[id number] 2.0.1.581462.3.579.2.140335-67-7810Hwddwsf52009818 2.0.1.665256.3.579.2.1286 Social History DateTypeDetailFacilityStart: 01-16-2022 End: 43-05-8310Tgrugnr smoking status NHISEx-smokerSub[facility] History of tobacco useCurrent smokerSuburban Community Hospital & Brentwood HospitalHistory of tobacco useCigarette SmokerCone Health MedCenter High Pointtart: 07-21-2022 End: 26-41-8146Itejhdolye smoked current (pack per day) - Reported0.3PThe Outer Banks Hospitaltart: 01-16-2022 End: 85-02-4071Hudkwdx use and exposureSmokeless tobacco non-userCone Health MedCenter High Pointtart: 03-05-2024 End: 75-71-7401Ggekmefza beverage intakeCurrent non-drinker of alcohol (finding) [facility] Pointtart: 07-21-2022 End: 22-68-8014IMP UtilitiesSuburban Community Hospital & Brent[facility] HospitalHas the [employer], [employer], or water [employer] threatened to shut off services in your home in past 12MoNo [facility] HospitalAre you now , , , , never or living with a partner?WidowedSuburban Community Hospital & Brentwood HospitalHow often to you have a drink containing alcohol?NeverSuburban Community Hospital & Brentwood HospitalHow many standard drinks containing alcohol do you have on a typical day?Patient does not drink [facility] HospitalHDmessagingDo you feel stress - tense, restless, nervous, or anxious, or unable to sleep at night because yourmind is troubled all the time - these days [OSQ]Not at allGifford Medical CenterVaybeetart: 59-78-8580Mvk assigned at birthNot on fileGifford Medical CenterVaybeetart: 29-52-7343HtjMzbwlu (finding) [facility] HospitalHDmessaging Clinical Notes 05-26-2020 to 03-11-2025 Note Date & FngpVokcEttfyuoo10-20-0650 NoteUT Electrophysiology Consult Note Reason for visit: follow [...] unremarkable 08/23/22 HPI: Ramy Madrigal is a 89 y.o. year old with [...] PACEMAKER PLACEMENT CTA CHEST W IV CONTRAST 08/05/19 (more content not included)...[facility]10-20-2025 History of Present illness Narrative* Seven Palmer, - 02/24/2025 11:00 AM EDT Subjective Patient ID: Ramy Madrigal is a 89 y.o. female. Ramy presents today to recheck multiple problems. She has high cholesterol and is currently taking medications. She also has hypothyroidism and is on a supplement. She has been taking that medication as well. She does not have any side effects. She is also using Ambien every night with trazodone 50 mg daily. She is doing well on that. She has noticed that she does wake up with a dry mouth in the morning. Sometimes her tongue is stuck to the roof of her mouth. She wonders if there is anything she can do about that. She also reports that she has the sniffles . She does not have a fever. She does not feel sick. She has used fluticasone nasal spray in the past but is not currently using it. The following portions of the patient's history were reviewed and updated as appropriate: allergies, current medications, past family history, past medical history, past social history, past surgicalhistory, problem list, and medication reconciliation was completed including current medication andpost discharge medication. Review of Systems Constitutional: Negative. HENT: Positive for rhinorrhea. Eyes: Negative. Respiratory: Negative. Cardiovascular: Negative. Gastrointestinal: Negative. Endocrine: Negative. Musculoskeletal: Positive for arthralgias. Negative for back pain. Allergic/Immunologic: Positive for environmental allergies. Psychiatric/Behavioral: Positive for sleep disturbance. Objective Physical Exam Vitals reviewed. Constitutional: General: She is not in acute distress. Appearance: She is overweight. She is not ill-appearing. HENT: Head: Normocephalic. Nose: No congestion or rhinorrhea. Right Turbinates: Pale. Not enlarged or swollen. Left Turbinates: Pale. Not enlarged or swollen. Mouth/Throat: Lips: Rebecca. Mouth: Mucous membranes are moist. Dentition: Has dentures. Pharynx: Uvula midline. Postnasal drip present. Cardiovascular: Rate and Rhythm: Normal rate and regular rhythm. Heart sounds: Normal heart sounds. No murmur heard. Pulmonary: Effort: Pulmonary effort is normal. No respiratory distress. Breath sounds: Normal breath sounds. No stridor. No wheezing, rhonchi or rales. Musculoskeletal: Cervical back: Neck supple. Neurological: General: No focal deficit present. Mental Status: She is alert and oriented to person, place, and time. Psychiatric: Attention and Perception: Attention normal. Mood and Affect: Mood and affect normal. Speech: Speech normal. Behavior: Behavior normal. Behavior is cooperative. Thought Content: Thought content normal. Cognition and Memory: Cognition normal. Judgment: Judgment normal. Assessment/Plan Ramy was seen today for controlled medications/ labs, hyperlipidemia and hypothyroidism. Diagnoses and all orders for this visit: Primary hypertension - Comprehensive metabolic panel; Future - Comprehensive metabolic panel Blood pressure at goal. Check CMP Acquired hypothyroidism - Thyroid profile includes TSH FT4; Future - Thyroid profile includes TSH FT4 Check TSH and T4 Prediabetes - Hemoglobin A1c; Future - Hemoglobin A1c Check A1c to see if she has developed diabetes Hypercholesterolemia - Lipid profile; Future - Lipid profile Check lipid panel Persistent insomnia She is using zolpidem and trazodone together with benefit. She is getting good night's sleep. She does not have any side effects. New controlled substance agreement contract signed today. Post-nasal drainage Recommend to restart fluticasone nasal spray 2 sprays daily. Monitor for new symptoms or fever. Xerostomia She has a dry mouth at nighttime. Could be due to mouth breathing. Trazodone also has it side effect but she has been on that for a while now. Encouraged to stay hydrated. She can try biotin solutionfor dry mouth. documented [facility] History of Present illness Narrative* Seven Palmer DO - 11/22/2024 10:00 AM EDT Subjective Patient ID: Ramy Madrigal is a 89 y.o. female. Ramy presents today for a DEXA scan and to recheck her Ambien use. She is using Ambien every night with benefit. She does not have any side effects. She wakes up feeling refreshed. She also takestrazodone to help her sleep. She took Reclast for 5 years. She is no longer on it. She has not broken any bones recently. Her mother did not break any of her bones. The following portions of the patient's history were reviewed and updated as appropriate: allergies, current medications, past family history, past medical history, past social history, past surgicalhistory, problem list, and medication reconciliation was completed including current medication andpost discharge medication. Review of Systems Constitutional: Negative. HENT: Dry mouth Respiratory: Negative. Cardiovascular: Negative. Gastrointestinal: Negative. Genitourinary: Negative. Musculoskeletal: Negative. Neurological: Negative. Psychiatric/Behavioral: Positive for sleep disturbance. Objective Physical Exam Vitals reviewed. Constitutional: General: She is not in acute distress. Appearance: Normal appearance. She is not ill-appearing. HENT: Head: Normocephalic and atraumatic. Pulmonary: Effort: Pulmonary effort is normal. Musculoskeletal: General: Deformity (mild kyphosis) present. Neurological: General: No focal deficit present. Mental Status: She is alert and oriented to person, place, and time. Psychiatric: Mood and Affect: Mood normal. Behavior: Behavior normal. Thought Content: Thought content normal. Judgment: Judgment normal. Assessment/Plan Ramy was seen today for dexa/ controlled. Diagnoses and all orders for this visit: Persistent insomnia Stable. Continue current regimen. She use using a high risk medication with benefit. The OARRS/MAPPS database was reviewed today and found to be appropriate. No indication of medication diversion, or non compliance. Asymptomatic menopausal state - Dexa scan central skeletal; Future Check DEXA scan to see if she has developed osteoporosis Osteopenia of both hips Check DEXA scan documented in this encounterMer[facility] HospitalOrbital Traction Karmanos Cancer [id number] NotePatient is here today for a 6 month follow up appointment. Patient had recent pacemaker check. Patient states she has an occasional ache on the left side of her chest, that comes and goes pretty quickly. Patient denies any other cardiac symptoms. Patient would like to know if its ok to take an occasional aleve for arthritis pain. Review of Systems Cardiovascular: Positive for chest pain (comes and goes quickly). Musculoskeletal: Positive for arthritis.[facility] 10-10-2024 NoteCardiovascular Medicine [facility] SUBJECTIVE Chief Complaint Patient presents with Coronary Artery Disease Congestive Heart Failure Hypertension Hyperlipidemia Ramy Madrigal is a 89 y.o. female here for follow-up. PMHx: CHB s/p DC-PPM biotronik, HFpEF, HTN, CAD - LM stenosis , CKD III, HLD HPI Since last seen she had an episode where she felt dizzy/lightheaded and had fallen. She hit her face on her night stand. She denies loss of consciousness. She saw her PCP. She was started on meclizine for vertigo. She is also changing positions slowly. These measures have helped. BP at home has been good, 110-130s/60-70s. Denies c/o CP, dyspnea, orthopnea, PND, LE edema, palpitations, syncope. UPDATE 10/10/2024 She is overall feeling well. Her dizziness is better. BP running 120-130s/60-70s. She notes some occasional left sided chest pain when she lays on her left side. She will also have some occasionally left sided pings that are short lived and no accompanied symptoms. 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 (CMS/HCC) Closed wedge fracture of thoracic vertebra (CMS/HCC) Degeneration, intervertebral disc, lumbar Diverticular disease Erythrocytosis Gastroesophageal reflux disease Hearing loss History of third degree heart block Hypokalemia Mass Left knee pain Impaired glucose tolerance Obstructive sleep apnea syndrome Arthritis of left knee Tinnitus Renovascular hypertension Post-nasal drainage Persistent insomnia Overweight Osteopenia Complete AV block (CMS/HCC) Prediabetes Dizziness Bilateral carotid artery stenosis Chronic diastolic heart failure (CMS/HCC) Past Medical History: Diagnosis Date Abnormal ECG Complete AV block (CMS/HCC) Hyperlipidemia Hypothyroidism Family History Problem Relation Name Age of Onset Diabetes Sister Social History Tobacco Use Smoking status: Never Substance Use Topics Alcohol use: Not Currently Drug use: Never Allergies Allergen Reactions Penicillins Anaphylaxis Adhesive Other Unknown Other Reaction(s): Unknown Review of Systems Constitutional: Negative for chills, decreased appetite, fever, malaise/fatigue and weight gain. Cardiovascular: Positive for syncope. Negative for chest pain, dyspnea on exertion, irregular heartbeat, leg swelling, near-syncope, orthopnea, palpitations and paroxysmal nocturnal dyspnea. Hematologic/Lymphatic: Negative for bleeding problem. Does not bruise/bleed easily. OBJECTIVE Visit Vitals BP 119/65 (BP Location: Right arm, Patient Position: Sitting) Pulse 80 Ht 1.524 m (5') Wt 61.2 kg (135 lb) SpO2 95% BMI 26.37 kg/m??? Smoking Status Never BSA 1.61 m??? Medications: Current Outpatient Medications: amLODIPine (Norvasc) 10 mg tablet, Take 10 mg by mouth in the morning., Disp: , Rfl: aspirin 81 mg EC tablet, Take 1 tablet by mouth in the morning., Disp: , Rfl: atorvastatin (Lipitor) 80 mg tablet, Take 1 tablet by mouth at bedtime., Disp: , Rfl: cholecalciferol (Vitamin D-3) 25 MCG (1000 units) tablet, 1 tablet Orally Every other day, Disp: , Rfl: cyanocobalamin (Vitamin B-12) 100 mcg tablet, as directed Orally, Disp: , Rfl: furosemide (Lasix) 40 mg tablet, Take 1 tablet (40 mg) by mouth once daily as directed., Disp: 90 tablet, Rfl: 2 levothyroxine (Synthroid, Levoxyl) 75 mcg tablet, Take 1 tablet every day by oral route for 90 days., Disp: , Rfl: liothyronine (Cytomel) 5 mcg tablet, Take 1 tablet every day by oral route for 90 days., Disp: , Rfl: magnesium oxide (Mag-Ox) 400 mg (241.3 mg magnesium) tablet, Take 1 tablet by mouth in the morning., Disp: , Rfl: meclizine (Antivert) 25 mg tablet, Take 12.5 mg by mouth if needed in the morning, at noon, and at bedtime for dizziness., Disp: , Rfl: metoprolol succinate XL (Toprol-XL) 50 mg 24 hr tablet, Take 1 tablet by mouth in the morning., Disp: , Rfl: omeprazole (PriLOSEC) [address] capsule, Take 20 mg by mouth every other day., Disp: , Rfl: potassium chloride CR (Klor-Con M20) 20 mEq ER tablet, Take 1 tablet every day by oral route for 90 days., Disp: , Rfl: traZODone (Desyrel) 50 mg tablet, Take 1 tablet by mouth in the morning., Disp: , Rfl: zolpidem (Ambien) 10 mg tablet, Take 1 tablet by mouth at bedtime., Disp: , Rfl: Physical Exam Vitals reviewed. Constitutional: Appearance: Normal appearance. She is normal weight. HENT: Head: Normocephalic and atraumatic. Right Ear: External ear normal. Left Ear: External ear normal. Eyes: Extraocular Movements: Extraocular movements intact. Conjunctiva/sclera: Conjunctivae normal. Pupils: Pupils are equal, round, and reactive to light. Neck: Vascular: No carotid bruit. Cardiovascular (more content not included)...[facility] 08-08-2024 History of Present illness Narrative* Seven Palmer, DO - 08/08/2024 10:00 AM EDT Subjective Patient ID: Ramy Madrigal is a 89 y.o. female. Ramy Madrigal is 89 y.o. female that presents to clinic for follow-up for medication check. She takes Ambien 10 mg nightly as needed. She reports she takes it every night. She reports that she is not experiencing side effects. She reports 7-8 hours of sleep. No night time awakenings. She would like labs rechecked. She endorses dry mouth and throat irritation in the morning that subsides during the day. She thinks she has gained more weight since the thyroid dose was lowered. She took the meclizine for her vertigo and after the 1st dose she has not had any recurrence since then. Follow-up Pertinent negatives include no abdominal pain, chest pain, chills or fever. Review of Systems Constitutional: Negative for chills and fever. HENT: Dry mouth Respiratory: Negative for shortness of breath. Cardiovascular: Negative for chest pain. Gastrointestinal: Negative for abdominal pain, blood in stool and rectal pain. Musculoskeletal: Negative. Psychiatric/Behavioral: Positive for sleep disturbance. Objective Physical Exam Vitals reviewed. Exam conducted with a cylinder die machine operator present (Junaid Pinzon MS 3). Constitutional: General: She is not in acute distress. Appearance: Normal appearance. She is not ill-appearing. HENT: Head: Normocephalic. Mouth/Throat: Mouth: Mucous membranes are moist. Neck: Vascular: No carotid bruit. Cardiovascular: Rate and Rhythm: Normal rate and regular rhythm. Heart sounds: Normal heart sounds. No murmur heard. Pulmonary: Effort: Pulmonary effort is normal. No respiratory distress. Breath sounds: Normal breath sounds. No wheezing, rhonchi or rales. Musculoskeletal: Cervical back: Neck supple. Lymphadenopathy: Cervical: No cervical adenopathy. Neurological: General: No focal deficit present. Mental Status: She is alert and oriented to person, place, and time. Psychiatric: Attention and Perception: Attention normal. Mood and Affect: Mood and affect normal. Speech: Speech normal. Behavior: Behavior normal. Behavior is cooperative. Thought Content: Thought content normal. Cognition and Memory: Cognition normal. Judgment: Judgment normal. Assessment/Plan Encounter Diagnoses Name Primary? Persistent insomnia Yes 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 ([facility]) Overweight (BMI 25.0-29.9) Osteopenia of lumbar spine Dizziness She is using zolpidem with benefit. It is improving her quality of life and ADLs. It is helping hersleep. She is getting good quality rest. She does not have any side effects. We will continue it. The OARRS/MAPPS database was reviewed today and found to be appropriate. No indication of medication diversion, or non compliance. Continue meclizine as needed. She is due for a DEXA scan. We will check a DEXA scan with her next appointment and do blood tests then. Her blood pressure is at goal. She is overweight. It is contributing to high blood pressure. Her weight has gone up a little bit since we decreased her thyroid dose. We could probably check it next visit again if her insurance covers it. Patient noted to have elevated BMI and the following intervention(s) were applied: encouragement toexercise and prescribed diet education. Note composed in part by Junaid Pinzon MS 3 documented in this encounterSub[facility]04-[facility] Miscellaneous Notes* Medical Student - Junaid Pinzon - 08/08/2024 10:00 AM EDT Disclaimer: This note is intended for educational purposes only. It does not constitute a patient visit and is not to be used or relied on for treatment, billing, or any other purposes. It has been created solely for to enable the student to practice documentation to achieve the expected level of competency in charting and receive feedback regarding same. This note is not a part of the legal medical record. documented in this encounterSub[facility]04-03-2025 Progress note* Medical Student - Junaid Pinzon - 08/08/2024 10:00 AM EDT Disclaimer: This note is intended for educational purposes only. It does not constitute a patient visit and is not to be used or relied on for treatment, billing, or any other purposes. It has been created solely for to enable the student to practice documentation to achieve the expected level of competency in charting and receive feedback regarding same. This note is not a part of the legal medical record. [facility]03-27-[facility] History of Present illness Narrative* Seven Palmer DO - 08/01/2024 9:40 AM EDT Subjective SUBJECTIVE: Patient ID: Ramy Madrigal is a 89 y.o. female who presents for a Medicare Annual Wellness exam. HPI The following portions of the patient's history were reviewed and updated as appropriate: allergies, current medications, past family history, past medical history, past social history, past surgicalhistory and problem list. AWV FLOWSHEET : Lifestyle Assessment Do you smoke or use smokeless tobacco?: (Patient-Rptd) No If you smoke or use smokeless tobacco, are you ready to quit?: (Patient-Rptd) NA Are you exposed to secondhand smoke?: (Patient-Rptd) No On average, how many drinks of alcohol do you consume in a week?: (Patient-Rptd) None Do you exercise for 30 or more minutes on average at least 3 days a week?: (!) (Patient-Rptd) Never Do you have any tooth, denture, or oral problems?: (!) (Patient-Rptd) Yes Do you snore or has anyone told you that you snore?: (!) (Patient-Rptd) Yes Do you try to eat a balanced diet?: (Patient-Rptd) Yes Do you experience leakage of urine, also known as urinary incontinence?: (!) (Patient-Rptd) Sometimes Do you have difficulty performing any of these activities? (check all that apply): (Patient-Rptd) None Do you have difficulty performing any of these activities? (check all that apply): (Patient-Rptd) None Fall Risk Fall Risk Assessment Completed?: Yes Have you fallen in the past year?: (Patient-Rptd) No How many times?: (Patient-Rptd) N/A Were you injured?: (Patient-Rptd) N/A Are you worried about falling?: (Patient-Rptd) No Do you feel unsteady when standing or walking?: (Patient-Rptd) No Risk Stratification: (Patient-Rptd) Low Risk Depression Screening Little interest or [...] some way: Not at all PEG Scale What number best describes your pain on average in the past week?: (Patient- Rptd) 8 What number best describes how, during the past week, pain has interfered with your enjoyment of life?: (Patient-Rptd) 1 What number best describes how, during the past week, pain has interfered with your general activity?: (Patient-Rptd) 1 PEG Pain Total Score: (Patient-Rptd) 3.33 Safety Assessment Do you have throw rugs on the floor?: (!) (Patient-Rptd) Yes Do you feel safe at your home?: (Patient-Rptd) Yes Do you feel unsteady when walking?: (Patient-Rptd) No Are you having difficulty with driving?: (Patient-Rptd) No Do you have trouble seeing?: (Patient-Rptd) No What assistive device do you use? (check all that apply): (Patient-Rptd) None Hearing Assessment Do you strain or struggle to hear/understand conversations?: (Patient-Rptd) No Do you have trouble hearing the television or radio when others do not?: (Patient-Rptd) No Does your family ever voice concerns about your hearing?: (Patient-Rptd) No Do you wear hearing aid/s?: (!) (Patient-Rptd) Yes Personal Health During the past 4 weeks, how would you rate your overall health?: (Patient-Rptd) Good Do you understand how to take all of your medications?: (Patient-Rptd) Yes How confident are you that you can control and manage most of your health problems?: (Patient-Rptd)Very confident In the past 12 months, how many times have you been hospitalized?: (Patient- Rptd) None End of Life Planning Do you have a living will?: (Patient-Rptd) Yes Do you have a durable power of finance attorney?: (!) (Patient-Rptd) No Cognitive Screening Do you have trouble remembering or recalling facts or events?: (Patient-Rptd) No Do family members or caregivers report that you have difficulty remembering things?: (Patient-Rptd)No 6-Cit: Normal REVIEW OF SYSTEMS: Review of Systems Objective PHYSICAL EXAMINATION: Vitals: 08/01/24 0933 BP: 114/62 Weight: 59.2 kg (130 lb 9.6 oz) Height: 149.9 cm (4' 11 ) Physical Exam Assessment/Plan ASSESSMENT/PLAN Encounter Diagnoses Name Primary? Medicare annual wellness visit, subsequent Yes Screening for depression Health maintenance discussed. Depression screen was negative. At least 3 minutes spent administering and discussing. Cognitive evaluation did not reveal any impairment. She doesn't have all of advance directives in place. She was encouraged to do so. Return in about 1 year (around 08/01/2025). documented in this encounterSub[facility]01-24-[facility] Miscellaneous Notes* Telephone Encounter - Michell Messer CMA - 05/31/2024 12:17 PM EST Pt called and states she needs a refill on pended medication ( Levothyroxine) . Also concerned because this medication has been recalled? Pharmacy is listed and correct * Telephone Encounter - Seven Palmer DO - 05/31/2024 12:17 PM EST The medication that was recalled was certain lot numbers. She should check with the pharmacy to seeif she had those that were recalled. Otherwise she should be fine since she is getting a new prescription documented in this encounterSub[facility]01-[facility]25 Telephone encounter Note* Telephone Encounter - Michell Messer CMA - 05/31/2024 12:17 PM EST Pt called and states she needs a refill on pended medication ( Levothyroxine) . Also concerned because this medication has been recalled? Pharmacy is listed and correct [facility] K[facility]ub [id number] Telephone encounter Note* Telephone Encounter - Seven PalmerDO - 05/31/2024 12:17 PM EST The medication that was recalled was certain lot numbers. She should check with the pharmacy to seeif she had those that were recalled. Otherwise she should be fine since she is getting a new prescription [facility] [id number] History of Present illness Narrative* Seven Palmer, - 05/10/2024 10:00 AM EST Subjective Patient ID: Ramy Madrigal is a 89 y.o. female. Ramy presents for a controlled substance recheck. She is using zolpidem every night with benefit. She is not having any side effects. She feels well rested when she wakes up. She does noticed that she has a dry mouth frequently when she wakes up. She saw the vascular specialist who will recheck her in 1 year. She does not need any intervention.Does not feel the dizziness is related to the carotid stenosis. She still has her chronic cough. It is getting better but it is still persistent. She does have some mucus production. She notices it is worse after getting up in the morning. The following portions of the patient's history were reviewed and updated as appropriate: allergies, current medications, past family history, past medical history, past social history, past surgicalhistory, problem list, and medication reconciliation was completed including current medication andpost discharge medication. Review of Systems Constitutional: Negative. Respiratory: Positive for cough. Musculoskeletal: Positive for arthralgias. Psychiatric/Behavioral: Positive for sleep disturbance. Objective Physical Exam Constitutional: General: She is not in acute distress. Appearance: She is overweight. She is not ill-appearing. HENT: Head: Normocephalic. Cardiovascular: Rate and Rhythm: Normal rate and regular rhythm. Pulses: Normal pulses. Heart sounds: Normal heart sounds. Pulmonary: Effort: Pulmonary effort is normal. No respiratory distress. Breath sounds: Normal breath sounds. No wheezing, rhonchi or rales. Musculoskeletal: Cervical back: Neck supple. Neurological: General: No focal deficit present. Mental Status: She is alert and oriented to person, place, and time. Psychiatric: Attention and Perception: Attention normal. Mood and Affect: Mood and affect normal. Speech: Speech normal. Behavior: Behavior normal. Behavior is cooperative. Thought Content: Thought content normal. Cognition and Memory: Cognition normal. Judgment: Judgment normal. Assessment/Plan Ramy was seen today for controlled. Diagnoses and all orders for this visit: Insomnia, unspecified type - Drug Screen, Urine; Future She is using high risk medication with benefit. Controlled substance agreement renewed. Will check urine drug screen. The OARRS/MAPPS database was reviewed today and found to be appropriate. No indication of medication diversion, or non compliance. Chronic cough - X-ray chest 2 views; Future We will check a chest x-ray. 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 Seems to be euvolemic at the present time Bilateral carotid artery stenosis [id number]. Follow up with vascular surgeon as directed. documented in this encounterGifford Medical CenterEnGeneIC12-05-2024 Evaluation + Plan note* Assessment & Plan Note - Sunita Mason MD - 2024 11:18 AM EST Associated Problem(s): Bilateral carotid artery stenosis Continue aspirin and statin. Surveillance imaging in a year. [facility] HospitalInside [id number] Miscellaneous Notes* Assessment & Plan Note - Sunita Mason MD - 2024 11:18 AM ESTAssociated Problem(s): Bilateral carotid artery stenosis Continue aspirin and statin. Surveillance imaging in a year. * Addendum Note - Sunita Mason MD - 2024 10:40 AM ESTAddended by: SUNITA MASON on: 2024 11:20 AM Modules accepted: Level of Service documented in this encounterSub[facility]12-[facility]24 History of Present illness Narrative* Sunita Mason MD - 2024 10:40 AM EST Images from the original note were not included. To: Seven Palmer, HPI: Ramy Madrigal is a 89 y.o. female with Bilateral ICA mild stenosis and moderate right CCA stenosis. She does not have stroke or mini stroke. She has hypertension but no diabetes. Review of Systems: Review of Systems Constitutional: Negative. HENT: Negative. Respiratory: Negative. Cardiovascular: Negative. Gastrointestinal: Negative. Endocrine: Negative. Genitourinary: Negative. Musculoskeletal: Negative. Skin: Negative. Neurological: Negative. Hematological: Negative. Medications: Current Outpatient Medications on File Prior to Visit Medication Sig Dispense Refill amLODIPine (NORVASC) 10 mg tablet TAKE 1 TABLET IN THE MORNING 90 tablet 1 aspirin 81 mg 1 tablet atorvastatin (LIPITOR) 80 mg tablet take 1 tablet daily 90 tablet 3 cholecalciferol, vitamin D3, (VITAMIN D3 ORAL) Take 1 capsule by mouth daily. cyanocobalamin, vitamin B-12, (VITAMIN B-12 ORAL) Take 1 tablet by mouth in the morning. famotidine (PEPCID) 10 mg tablet Take 1 tablet (10 mg total) by mouth in the morning and 1 tablet (10 mg total) before bedtime. fluticasone propionate (FLONASE) 50 mcg/actuation nasal spray Administer 2 sprays into each nostrilin the morning. furosemide (LASIX) 40 mg tablet TAKE 1 TABLET DAILY 90 tablet 1 KLOR-CON M20 20 mEq CR tablet TAKE 1 TABLET DAILY 90 tablet 1 levothyroxine (SYNTHROID, LEVOTHROID) 75 MCG tablet Take 1 tablet (75 mcg total) by mouth in the morning. 90 tablet 2 liothyronine (CYTOMEL) 5 MCG tablet take 1 tablet daily 90 tablet 2 magnesium oxide (MAGOX) 400 mg tablet Take 1 tablet (400 mg total) by mouth in the morning and 1 tablet (400 mg total) before bedtime. 180 tablet 1 meclizine (ANTIVERT) 12.5 mg tablet TAKE 1 TABLET BY MOUTH THREE TIMES DAILY NEEDED 30 tablet 1 metoprolol succinate XL (TOPROL XL) 50 mg 24 hr tablet take 1 tablet daily 90 tablet 3 omeprazole (PriLOSEC) 20 mg capsule Take 1 capsule (20 mg total) by mouth daily as needed (heartburn). pyridoxine HCl, vitamin B6, (VITAMIN B-6 ORAL) Take 1 tablet by mouth in the morning. traZODone (DESYREL) 50 mg tablet TAKE 1 TABLET NIGHTLY 90 tablet 1 zolpidem (AMBIEN) 10 mg tablet TAKE 1 TABLET NIGHTLY NEEDED FOR SLEEP 30 tablet 2 Current Facility-Administered Medications on File Prior to Visit Medication Dose Route Frequency Provider Last Rate Last Admin zoledronic acid (RECLAST) IVPB 5 mg/100 mL in mannitol 5% and water (0.05 mg/mL premix) 5 mg intravenous Once Seven Palmer DO Past Medical History: Past Medical History: Diagnosis Date Anxiety Arthritis Basal cell carcinoma of skin 06/22/2017 Cataract Closed wedge compression fracture of eighth thoracic vertebra [place] 01/31/2020 Coronary arteriosclerosis 08/12/2021 LAD 50% blocked Degeneration of intervertebral disc of lumbar region Dental disease upper and lower plate Disease of thyroid gland Diverticular disease Erythrocytosis 09/12/2019 Gastroesophageal reflux disease Hypothyroidism Impaired glucose tolerance Osteopenia Persistent insomnia Stage 3 chronic kidney disease due to benign hypertension ([facility] 07/12/2021 Visual impairment glasses Past Surgical History: Past Surgical History: Procedure Laterality Date APPENDECTOMY CARDIAC PACEMAKER PLACEMENT CATARACT EXTRACTION, BILATERAL COLONOSCOPY HYSTERECTOMY [place] REMOVAL OF OVARY(S) REPLACEMENT TOTAL KNEE Right TONSILLECTOMY AND ADENOIDECTOMY Social and Family History: Social History Socioeconomic History Marital status: Spouse name: Not on file Number of children: Not on file Years of education: Not on file Highest education level: Not on file Occupational History Not on file Tobacco Use Smoking status: Former Current packs/day: 0.25 Average packs/day: 0.3 packs/day for 2.0 years (0.5 ttl pk-yrs) Types: Cigarettes Smokeless tobacco: Never Substance and Sexual Activity Alcohol use: No Drug use: No Sexual activity: Defer Other Topics Concern Not on file Social History Narrative Not on file Social Drivers of Health Financial Resource Strain: Low Risk (07/21/2022) Overall Financial Resource Strain (CARDIA) Difficulty of Paying Living Expenses: Not hard at all Food Insecurity: No Food Insecurity (03/05/2024) Hunger Screening Food Insecurity - Worry: Never True Food Insecurity - Inability: Never True Transportation Needs: No Transportation Needs (07/21/2022) PRAPARE - Transportation Lack of Transportation (Medical): No Lack of Transportation (Non-Medical): No Physical Activity: Inactive (07/25/2023) Exercise Vital Sign Days of Exercise per Week: 0 days Minutes of Exercise per Session: 0 min Stress: No Stress Concern Present (07/21/2022) [place] [employer] - Occupational Stress Questionnaire Feeling of Stress : Not at all Social Connections: Moderately Isolated (07/25/2023) Social Connection and Isolation Panel [NHANES] Frequency of Communication with Friends and Family: More than three times a week Frequency of Social Gatherings with Friends and Family: More than three times a week Attends Gnosticist Services: More than 4 times per year Active Member of Clubs or Organizations: No Attends Club or Organization Meetings: Never Marital Status: Interpersonal Safety: Not At Risk (02/07/2024) Humiliation, Afraid, Rape, and Kick questionnaire Fear of Current or Ex-Partner: No Emotionally Abused: No Physically Abused: No Sexually Abused: No Housing Instability: Low Risk (07/21/2022) Housing Instability Housing Instability: No Family History Problem Relation Age of Onset Hypertension Mother Diabetes Mother Alzheimer's disease Mother Emphysema Father Coronary artery disease Father Hyperlipidemia Sister born in 1939 Diabetes Sister Heart disease Sister Lung cancer Sister 62 smoker Tuberculosis Maternal Grandmother Colon cancer Paternal Grandmother Stroke Paternal Grandfather Hypertension Half Sister Hyperlipidemia Half Sister Recent Labs: Recent and relative labs were reviewed and interpreted and contributed to the assessment and plan below. Vitals: BP 114/60 (BP Site: Right Arm, BP Postition: Sitting, BP CUFF SIZE: M (9-13 inches)) Pulse 71 Temp 36.7 C (98 F) (Temporal) Resp 16 Ht 149.9 cm (4' 11.02 ) Wt 58.1 kg (128 lb) SpO2 98% BMI 25.84 kg/m Body mass index is 25.84 kg/m . Physical Exam: Physical Exam Constitutional: Appearance: Normal appearance. HENT: Head: Normocephalic and atraumatic. Mouth/Throat: Mouth: Mucous membranes are moist. Eyes: Extraocular Movements: Extraocular movements intact. Pupils: Pupils are equal, round, and reactive to light. Cardiovascular: Rate and Rhythm: Normal rate and regular rhythm. Pulmonary: Effort: Pulmonary effort is normal. Breath sounds: Normal breath sounds. Abdominal: General: Abdomen is flat. Bowel sounds are normal. Palpations: Abdomen is soft. Musculoskeletal: General: Normal range of motion. Cervical back: Normal range of motion. Skin: General: Skin is warm and dry. Neurological: General: No focal deficit present. Mental Status: She is alert and oriented to person, place, and time. Mental status is at baseline. Psychiatric: Mood and Affect: Mood normal. Behavior: Behavior normal. Thought Content: Thought content normal. Judgment: Judgment normal. 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 Diagnoses and all orders for this visit: Dizziness - [facility] - [place], [place] Stenosis of right [facility] [place], [place] Sunita Mason MD, ANGELA, RPVI, FSVS, FACS [facility] This note was created with the assistance of a speech recognition program. While intending to generate a timely document that accurately reflects the content of the visit, no guarantee can be provided that every grammatical or spelling mistake has been or will be identified or corrected. Thank you for your understanding. documented in [facility] Note* Addendum Note - Sunita Mason MD - 2024 10:40 AM ESTAddended by: SUNITA MASON on: 2024 11:20 AM Modules accepted: Level of Service [facility]12-04-2024 NoteCardiovascular Medicine [facility] SUBJECTIVE Chief Complaint Patient presents with Hypertension Congestive Heart Failure Coronary Artery Disease Syncope Ramy Madrigal is a 89 y.o. female here for follow-up. HPI PMHx: CHB s/p DC-PPM biotronik, HFpEF, HTN, CAD - LM stenosis , CKD III, HLD Since last seen she had an episode where she felt dizzy/lightheaded and had fallen. She hit her face on her night stand. She denies loss of consciousness. She saw her PCP. She was started on meclizine for vertigo. She is also changing positions slowly. These measures have helped. BP at home has been good, 110-130s/60-70s. Denies c/o CP, dyspnea, orthopnea, PND, LE edema, palpitations, syncope. 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 (CMS/HCC) Closed wedge fracture of thoracic vertebra (CMS/HCC) Degeneration, intervertebral disc, lumbar Diverticular disease Erythrocytosis Gastroesophageal reflux disease Hearing loss History of third degree heart block Hypokalemia Mass Left knee pain Impaired glucose tolerance Obstructive sleep apnea syndrome Arthritis of left knee Tinnitus Renovascular hypertension Post-nasal drainage Persistent insomnia Overweight Osteopenia Complete AV block (CMS/HCC) Prediabetes Dizziness Past Medical History: Diagnosis Date Abnormal ECG Complete AV block (CMS/HCC) Hyperlipidemia Hypothyroidism Family History Problem Relation Name Age of Onset Diabetes Sister Social History Tobacco Use Smoking status: Never Substance Use Topics Alcohol use: Not Currently Allergies Allergen Reactions Penicillins Anaphylaxis Adhesive Review of Systems Constitutional: Negative for chills, decreased appetite, fever, malaise/fatigue and weight gain. Cardiovascular: Positive for syncope. Negative for chest pain, dyspnea on exertion, irregular heartbeat, leg swelling, near-syncope, orthopnea, palpitations and paroxysmal nocturnal dyspnea. Hematologic/Lymphatic: Negative for bleeding problem. Does not bruise/bleed easily. OBJECTIVE Visit Vitals BP 119/62 Pulse 54 Ht 1.829 m (6') Wt 59.9 kg (132 lb) SpO2 91% BMI 17.90 kg/m??? Smoking Status Never BSA 1.74 m??? Medications: Current Outpatient Medications: amLODIPine (Norvasc) 10 mg tablet, Take 10 mg by mouth in the morning., Disp: , Rfl: aspirin 81 mg EC tablet, Take 1 tablet by mouth in the morning., Disp: , Rfl: atorvastatin (Lipitor) 80 mg tablet, Take 1 tablet by mouth at bedtime., Disp: , Rfl: cholecalciferol (Vitamin D-3) 25 MCG (1000 units) tablet, 1 tablet Orally Every other day, Disp: , Rfl: cyanocobalamin (Vitamin B-12) 100 mcg tablet, as directed Orally, Disp: , Rfl: furosemide (Lasix) 40 mg tablet, Take 1 tablet (40 mg) by mouth once daily as directed., Disp: 90 tablet, Rfl: 2 levothyroxine (Synthroid, Levoxyl) 75 mcg tablet, Take 1 tablet every day by oral route for 90 days., Disp: , Rfl: liothyronine (Cytomel) 5 mcg tablet, Take 1 tablet every day by oral route for 90 days., Disp: , Rfl: magnesium oxide (Mag-Ox) 400 mg (241.3 mg magnesium) tablet, Take 1 tablet by mouth in the morning., Disp: , Rfl: meclizine (Antivert) 25 mg tablet, Take 12.5 mg by mouth if needed in the morning, at noon, and at bedtime for dizziness., Disp: , Rfl: metoprolol succinate XL (Toprol-XL) 50 mg 24 hr tablet, Take 1 tablet by mouth in the morning., Disp: , Rfl: omeprazole (PriLOSEC) [address] capsule, Take 20 mg by mouth every other day., Disp: , Rfl: potassium chloride CR (Klor-Con M20) 20 mEq ER tablet, Take 1 tablet every day by oral route for 90 days., Disp: , Rfl: traZODone (Desyrel) 50 mg tablet, Take 1 tablet by mouth in the morning., Disp: , Rfl: zolpidem (Ambien) 10 mg tablet, Take 1 tablet by mouth at bedtime., Disp: , Rfl: Physical Exam Vitals reviewed. Constitutional: Appearance: Normal appearance. She is normal weight. HENT: Head: Normocephalic and atraumatic. Right Ear: External ear normal. Left Ear: External ear normal. Eyes: Extraocular Movements: Extraocular movements intact. Conjunctiva/sclera: Conjunctivae normal. Pupils: Pupils are equal, round, and reactive to light. Neck: Vascular: No carotid bruit. Cardiovascular: Rate and Rhythm: Normal rate and regular rhythm. Pulses: Normal pulses. Heart sounds: Normal heart sounds. Pulmonary: Effort: Pulmonary effort is normal. Breath sounds: Normal breath sounds. Abdominal: General: Bowel sounds are normal. Palpations: Abdomen is soft. Musculoskeletal: Cervical back: Neck supple. Right lower leg: No edema. Left lower leg: No edema. Skin: General: Skin is warm and dry. Neurological: General: No focal deficit present. Mental Status (more content not included)...[facility] 04-10-2024 NotePatient here for 6 mo follow up complete heart block s/p PPM, hypertension, and hyperlipidemia. She had an echo in October 2023, and a carotid US last month. She had a recent fall and is being treated for vertigo. Review of Systems Neurological: Positive for light-headedness and vertigo. All other systems reviewed and are negative.[facility] 03-05-2024 History of Present illness Narrative* Seven Palmer, DO - 03/05/2024 1:45 PM EDT Subjective Patient ID: Ramy Madrigal [...] medication andpost discharge medication. Review of Systems Neurological: Positive for dizziness. 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 Constitutional: General: She is not [...] nystagmus. Conjunctiva/sclera: Conjunctivae normal. Comments: Normal Hallpike [place] maneuver but did get symptoms upon sitting [...] is intact. Romberg sign negative. Coordination normal. Hhlbbo-Hgfd-Omccth Test and Heel to Gaines Test normal. [...] to use as needed every 8 hours andat bedtime. Appears intact neurologically otherwise. Other orders - meclizine (ANTIVERT) 12.5 mg tablet; Take 1 tablet (12.5 mg total) by mouth 3 (three) times a dayas needed for dizziness. documented in this encounterGifford Medical CenterEnGeneIC10-28-2024 Miscellaneous Notes* Telephone Encounter - Soraida Lemon CMA - 03/04/2024 10:01 AM EDT Patient called and is having dizzy spells when standing and was wondering if she needs to be seen or can you send something in for her dizzy spells? * Telephone Encounter - Seven Palmer DO - 03/04/2024 10:01 AM EDT She should probably be seen. Is it vertigo? documented in this encounterSelect [facility] Kahub [id number] Telephone encounter Note* Telephone Encounter - Soraida Lemon CMA - 03/04/2024 10:01 AM EDT Patient called and is having dizzy spells when standing and was wondering if she needs to be seen or can you send something in for her dizzy spells? [facility]10-28-2024 Telephone encounter Note* Telephone Encounter - Seven Palmer DO - 03/04/2024 10:01 AM EDT She should probably be seen. Is it vertigo? [facility]10-02-2024 History of Present illness Narrative* Seven Palmer DO - 02/07/2024 9:00 AM EDT Subjective Patient ID: Ramy Madrigal is [...] Comments: Nasal mucosa beefy red Mouth/Throat: Lips: Rebecca. Mouth: Mucous membranes are moist. Tongue: No [...] hypertension with stage 3a chronic kidney disease ([facility]) - Basic Metabolic Panel; Future - CBC; [...] Veritor Likely viral upper respiratory infection. Use cnze-cru-opwdgqy medications for symptom control. COVID and flu swabs were negative. Persistent insomnia Stable. Continue current regimen. She is using high risk medication with benefit. She is not havingany side effects. The PatientcoS/MateriaS database was reviewed today and found to [...] daily as needed (heartburn). documented in this encounterMercy Health St. [facility] HospitalNegorama07-29-2024 Miscellaneous Notes* Telephone Encounter - RIN Dawson - 12/04/2023 10:03 AM EDT The PatientcoS/MateriaS database was reviewed today and found to be appropriate. No indication of medication diversion, or non compliance. documented in this encounterMercy Health St. [facility] Hospitalca Karmanos Cancer [id number] Telephone encounter Note* Telephone Encounter - RIN Dawson - 12/04/2023 10:03 AM EDT The OARRS/MAPPS database was reviewed today and found to be appropriate. No indication of medication diversion, or non compliance. [facility]07-24-2024 Miscellaneous Notes* Telephone Encounter - Renetta Liao CMA - 11/29/2023 10:46 AM EDT Patient needs a short term so she has enough until she gets her mail in documented in this encounterSub[facility]07-24-2024 Telephone encounter Note* Telephone Encounter - Renetta Liao CMA - 11/29/2023 10:46 AM EDT Patient needs a short term so she has enough until she gets her mail in [facility]07-[facility]24 History of Present illness Narrative* Seven Palmer, - 11/07/2023 2:15 PM EDT Subjective Patient ID: Ramy Madrigal is a 88 y.o. female. Ramy is here for recheck of Ambien. She is using it every night. She sleeps 7-8 hours/night. She wakes up feeling refreshed. She isn't having any side effects. She is able to function throughout the day with the medication. She does not do well when she does not take the medication. She can notsleep. She is fatigued all the next day. She would like to continue. The following portions of the patient's history were reviewed and updated as appropriate: allergies, current medications, past family history, past medical history, past social history, past surgicalhistory, problem list, and medication reconciliation was completed including current medication andpost discharge medication. Review of Systems Gastrointestinal: Positive for abdominal pain (heartburn). Psychiatric/Behavioral: Positive for sleep disturbance. Objective Physical Exam HENT: Head: Normocephalic. Cardiovascular: Rate and Rhythm: Normal rate and regular rhythm. Pulses: Normal pulses. Heart sounds: Normal heart sounds. Pulmonary: Effort: Pulmonary effort is normal. No respiratory distress. Breath sounds: Normal breath sounds. No wheezing, rhonchi or rales. Musculoskeletal: Cervical back: Neck supple. Neurological: General: No focal deficit present. Mental Status: She is alert and oriented to person, place, and time. Assessment/Plan Ramy was seen today for controlled substance. Diagnoses and all orders for this visit: Persistent insomnia She is using high risk medication with benefit. She has not having any side effects. It is improving her quality of life and ability to do ADLs. We will continue medication. Continue medication. The OARRS/MAPPS database was reviewed today and found to be appropriate. No indication of medication diversion, or non compliance. Gastroesophageal reflux disease, unspecified whether esophagitis present Recommended to stop omeprazole at and try Pepcid or to at least take omeprazole just every other day for now. Risks of chronic kidney disease, fractures and C diff infection discussed. Overweight She is just barely overweight with clothes on. Likely just borderline or slightly below overweight level. We did discuss exercise. Aquatic therapy was discussed. She did not seem interested in exercise. documented in this encounterSub[facility]2024 History of Present illness Narrative* Seven Palmer DO - 08/17/2023 11:11 AM EDT OARRS checked documented in this encounterMercy Health St. [facility] HospitalOrbital Traction [facility] Cancer CenterVrzfrp08-58-9066 History of Present illness Narrative* Seven Palmer DO - 08/08/2023 2:30 PM EDT Subjective Patient ID: Ramy Madrigal [...] hypertension with stage 3a chronic kidney disease ([facility]) Blood pressure at goal. Previous basic metabolic [...] Likely normal weight without clothes. We did discussdiet extensively. Encouraged exercise. Other insomnia - zolpidem [...] check it next visit. documented in this encounterSub[facility]03-19-2024 History of Present illness Narrative* Seven [...] Do you have a durable power of finance attorney?: Yes Cognitive Screening Do you have [...] 1 year (around 07/24/2024). documented in this encounterSuburban [facility] Hospital & [facility]03-13-2024 Miscellaneous Notes* Telephone Encounter - RIN Dawson - 07/19/2023 1:00 PM EDT The PatientcoS/RegalBox database was reviewed today and found to be appropriate. No indication of medication diversion, or non compliance. documented in this encounterMercy Health St. [facility] HospitalOrbital Traction Karmanos Cancer CenterXyhiiv67-84-8428 Telephone encounter Note* Telephone Encounter - RIN Dawson - 07/19/2023 1:00 PM EDT The PatientcoS/RegalBox database was reviewed today and found to be appropriate. No indication of medication diversion, or non compliance. [facility]03-11-2024 History of Present illness Narrative* Nickie Hathaway, SAKINA - 07/17/2023 3:00 PM EDT Subjective [...] Thought content normal. Judgment: Judgment normal. Assessment/Plan Rmay was seen today for uri. 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 Electronically Signed by: Sindhu Can [...] Brown CNP Date Trans: 12/14/2021 04:18 A/roya CHILDERS_JN:[id number] cc: Seven Palmer M.D. [address] [place] [address]HmkSelect Medical Specialty [facility]04-01-2022 NoteMR#: [id number] [facility] Pt. Name: Ramy Madrigal Admitted: 08/02/2021 Discharged: [...] P/[place] MD Date Trans: 08/06/2021 04:04 P/mmo DN_JN:[id number] Medical Specialty Hospital [facility]07-08-2021 Note [id number]#1.00[facility]06-26-2021 NoteEducation Materials Orthopedics Total Knee Replacement, Care [...] these instructions at home: Medicines ? Take unsz-aus-ykydhsb and prescription medicines only as told by [...] your pee (urine) pale yellow. ? Take tyer-kxw-uolcbmh or prescription medicines. ? 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 ? Change your bandage as told by [...] if there are ins (more content not included)...[facility] [id number] [facility] Clinical Discharge Summary PERSON INFORMATION Name RAMY MADRIGAL Age 85 Years 1935 Sex FEMALE Language Greek PCP SEVEN PALMER Marital Status Med Service Swing Acct# Arrival 10/27/2020 14:15:00 Visit Reason R TKA Acuity LOS 003 20:40 Address: [address] [place] [address] Comment: PROVIDER INFORMATION VITALS INFORMATION Vital Sign [...] Oral every day. omega-3 polyunsaturated fatty acids ([facility] Red Krill Oil 500 mg oral [...] range between ( 1.3 and 2.9 ) [place] Abs#: 0.8 x103/mcL -- Normal range between ( 0.0 and 0.8 ) Auto Baso %: 0.7 % -- Normal range between ( 0.2 and 2.0 ) Auto [place] %: 9 % -- Normal range between [...] 10.3 ) BUN/Creat Ratio (more content not included)...[facility] HospitalIfnwsvlp37-94-5849 Note [id number]#1.00[facility] 10-27-2020 NoteEducation Materials 1. Follow-up With physician patient care assistant eDlonte Guerin previously scheduled 2. Flex/extend feet/ankles 10 [...] pain or shortness of breath. 7. Call [phone] Young or call [facility] and have me paged for anyquestions or [...] Percocet is a narcotic so use it sparingly.[facility] HospitalZgiskprd97-96-4107 [facility] Clinical Discharge Summary PERSON INFORMATION Name RAMY MADRIGAL Age 85 Years 1935 Sex FEMALE Language Greek PCP SEVEN PALMER Marital Status Med Service Observation Acct# Arrival 10/23/2020 05:52:00 Visit Reason SURGERY - RIGHT TOTAL KNEE POSSIBLE STEMS AND AUGS POSSIBLE PATELLA AUGMENT SYSYEM - GORDY Acuity LOS 004 08:09 Address: [address] [place] [id number] Comment: PROVIDER INFORMATION VITALS INFORMATION Vital Sign [...] range between ( 1.3 and 2.9 ) [place] Abs#: 1.0 x103/mcL -- Normal range between ( 0.0 and 0.8 ) Auto Baso %: 0.7 % -- Normal range between ( 0.2 and 2.0 ) Auto [place] %: 10 % -- Normal range between [...] Not Indicated UA B (more content not included)...[facility] HospitalExxrwisk16-58-7954 Note [id number]#1.00[facility]02-01-2021 [id number]#1.00[facility] 05-28-2020 [id number]#1.00[facility]01-20-2021 NoteEducation Materials POST OPERATIVE TOTAL KNEE/HIP DISCHARGE [...] your doctor immediately or g (more content notincluded)...[facility] HospitalXlosoqrk92-41-1008 [facility] Clinical Discharge Summary PERSON INFORMATION Name RAMY MADRIGAL Age 85 Years 1935 Sex FEMALE Language Greek PCP SEVEN PALMER Marital Status Med Service Observation Acct# Arrival 05/26/2020 07:20:00 Visit Reason SURGERY - RIGHT TOTAL KNEE Acuity LOS 000 29:55 Address: [address] [place] [address] [place], [place] [id number] Comment: PROVIDER INFORMATION VITALS INFORMATION Vital Sign [...] the Following Medications omega-3 polyunsaturated fatty acids ([employer] SplashMapsy Red Krill Oil 500 mg oral capsule) [...] range between ( 1.3 and 2.9 ) [place] Abs#: 0.5 x103/mcL -- Normal range between ( 0.0 and 0.8 ) Auto Baso %: 0.1 % -- Normal range between ( 0.2 and 2.0 ) Auto [place] %: 3 % -- Normal range between [...] Instructions: [place] Total Hip/Knee/DVT (more content not included)...[facility] 05-26-2020 [id number] Diagnosis Dizziness Dizziness and giddiness Stenosis of right carotid artery Occlusion and stenosis of carotid artery without mention of cerebral infarction Primary hypertension Unspecified essential hypertension [facility] Diagnosis Dizziness Dizziness and giddiness Stenosis of right carotid artery Occlusion and stenosis of carotid artery without mention of cerebral infarction Insomnia, unspecified type- Primary Chronic cough Cough 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 ([facility] Complete AV block ([facility]) Atrioventricular block, complete Chronic diastolic heart failure ([facility]) Bilateral carotid artery stenosis Occlusion and stenosis of carotid artery without mention of cerebral infarction documented [facility]* Diagnosis Acquired hypothyroidism Unspecified hypothyroidism Persistent insomnia Primary hypertension Unspecified essential hypertension documented [facility]* Diagnosis Persistent insomnia- Primary documented [facility]* Diagnosis Persistent insomnia- Primary Gastroesophageal reflux disease, unspecified whether esophagitis present Overweight documented [facility] encounter [facility]* Diagnosis Viral upper respiratory tract infection- Primary Acute upper respiratory infections of unspecified site 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 ([facility]) Acquired hypothyroidism Unspecified hypothyroidism documented [facility] encounter [facility]* Diagnosis Other insomnia- Primary documented [facility] encounter [facility]* Diagnosis Acquired hypothyroidism Unspecified hypothyroidism documented in this encounter [facility]* Diagnosis Acquired hypothyroidism Unspecified hypothyroidism documented in this encounter [facility]* Diagnosis Acquired hypothyroidism Unspecified hypothyroidism documented in this encounter [facility]* Diagnosis Medicare annual wellness visit, subsequent- Primary Screening for depression documented in this encounter [facility]* Diagnosis Other insomnia documented [facility]* Diagnosis 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 ([facility] Primary Prediabetes Other abnormal glucose Persistent insomnia Overweight Other insomnia Medication monitoring encounter Encounter for therapeutic drug monitoring Acquired hypothyroidism Unspecified hypothyroidism documented in this encounter [facility]* Diagnosis Other insomnia documented in [facility] encounter [facility]* Diagnosis Other insomnia documented in this encounter [facility]* Diagnosis 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 ([facility] Primary Acquired hypothyroidism Unspecified hypothyroidism Prediabetes Other abnormal glucose Upper respiratory tract infection, unspecified type Persistent insomnia Gastroesophageal reflux disease, unspecified whether esophagitis present Hypercholesterolemia Pure hypercholesterolemia Overweight documented in this encounter [facility]* Diagnosis Primary hypertension Unspecified essential hypertension [facility] Diagnosis Dizziness- Primary Dizziness and giddiness documented in this encounter [facility]* Diagnosis Dizziness- Primary Dizziness and giddiness Stenosis of right carotid artery Occlusion and stenosis of carotid artery without mention of cerebral infarction [facility] Diagnosis Other insomnia [facility]* Diagnosis Dizziness Dizziness and giddiness Stenosis of right carotid artery Occlusion and stenosis of carotid artery without mention of cerebral infarction [facility]* Diagnosis Dizziness Dizziness and giddiness Stenosis of right carotid artery Occlusion and stenosis of carotid artery without mention of cerebral infarction Other insomnia [facility]* Diagnosis Dizziness Dizziness and giddiness Stenosis of right carotid artery Occlusion and stenosis of carotid artery without mention of cerebral infarction Medicare annual wellness visit, subsequent- Primary Screening for depression documented in this encounter [facility]* Diagnosis Dizziness Dizziness and giddiness Stenosis of right carotid artery Occlusion and stenosis of carotid artery without mention of cerebral infarction Persistent insomnia- Primary 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 ([facility] Overweight (BMI 25.0-29.9) Overweight Osteopenia of lumbar spine Dizziness Dizziness and giddiness documented in this encounter [facility]* Diagnosis Dizziness Dizziness and giddiness Stenosis of right carotid artery Occlusion and stenosis of carotid artery without mention of cerebral infarction Other insomnia [facility]* Diagnosis Dizziness Dizziness and giddiness Stenosis of right carotid artery Occlusion and stenosis of carotid artery without mention of cerebral infarction Other insomnia documented in this encounter [facility]* Diagnosis Dizziness Dizziness and giddiness Stenosis of right carotid artery Occlusion and stenosis of carotid artery without mention of cerebral infarction Primary hypertension Unspecified essential hypertension documented [facility]* Diagnosis Dizziness Dizziness and giddiness Stenosis of right carotid artery Occlusion and stenosis of carotid artery without mention of cerebral infarction Primary hypertension Unspecified essential hypertension Other insomnia documented in [facility]* Diagnosis Dizziness Dizziness and giddiness Stenosis of right carotid artery Occlusion and stenosis of carotid artery without mention of cerebral infarction Primary hypertension Unspecified essential hypertension [facility] Diagnosis Dizziness Dizziness and giddiness Stenosis of right carotid artery Occlusion and stenosis of carotid artery without mention of cerebral infarction Other insomnia Primary hypertension Unspecified essential hypertension documented [facility] Diagnosis Dizziness Dizziness and giddiness Stenosis of right carotid artery Occlusion and stenosis of carotid artery without mention of cerebral infarction Persistent insomnia- Primary Asymptomatic menopausal state Osteopenia of both hips [facility] Diagnosis Dizziness Dizziness and giddiness Stenosis of right carotid artery Occlusion and stenosis of carotid artery without mention of cerebral infarction Other insomnia [facility] Diagnosis Dizziness Dizziness and giddiness Stenosis of right carotid artery Occlusion and stenosis of carotid artery without mention of cerebral infarction Primary hypertension- Primary Unspecified essential hypertension Acquired hypothyroidism Unspecified hypothyroidism Prediabetes Other abnormal glucose Hypercholesterolemia Pure hypercholesterolemia Persistent insomnia Post-nasal drainage Other diseases of nasal cavity and sinuses Xerostomia Disturbance of salivary secretion documented [facility] [...] section and content) DATE CREATED AUTHOR 11/13/2020 [facility] DATE CREATED AUTHOR AUTHOR'S ORGANIZ ATION 07/07/2021 [facility] DATE CREATED AUTHOR AUTHOR'S ORGANIZ ATION 12/19/2021 [facility] DATE CREATED AUTHOR AUTHOR'S ORGANIZ ATION 09/15/2022 [facility] DATE CREATED AUTHOR AUTHOR'S ORGANIZ ATION 09/29/2023 [facility] DATE CREATED AUTHOR AUTHOR'S ORGANIZ ATION 05/18/2024 [facility] DATE CREATED AUTHOR AUTHOR'S ORGANIZ ATION 02/25/2025 [facility] DATE CREATED AUTHOR AUTHOR'S ORGANIZ ATION 03/14/2025 [facility] Reason for Visit (unrecogniz ed section and content) ReasonCommentsMed RefillReasonOnset DateCommentsMed [id number] CommentscontrolledReasonOnset DateCommentsMed Apiqvt654ReasonComments controlled substanceReasonCommentsURIX 1 week otc meds aren't workingReasonOnset DateCommentsMed Xhettk054ReasonOnset DateCommentsMed Odxmaa7411/29/2023 ReasonOnset DateCommentsMed Ghynfc764ReasonCommentsmedicare annual wellnessReasonOnset DateCommentsMed Hxqblq1708/16/2023easonCommentscontrolledCold Like SymptomsfatigueReasonCommentsDizzinessX 2 weeksReasonCommentsNp-Dizziness R42] , Stenosis of right carotid artery I65.1 month ago got up to got o the bathroom and got really dizzy and fell hitting nose on closet.Dr Palmer ordered carotid ultrasound and showed blockage. Occassional dizzinwess since then SpecialtyDiagnoses / ProceduresReferred By ContactReferred To ContactVascular Surgery Diagnoses Dizziness Stenosis of right carotid artery Seven Palmer DO [address] [facility], [facility] [place] [address] Phone: tel: fax: [facility] [address] [place] [address] Phone: tel:[phone] fax: Referral IDStatusReasonStart DateExpiration DateVisits RequestedVisits [id number] Review Specialty Services Required 1ReasonOnset DateCommentsMed Jptxsi6006/27/2024ReasonOnset Date CommentsMed Ymeehf8807/08/2024ReasonCommentsMAWReasonCommentsFollow-up3 month ReasonOnset DateCommentsMed Cfxlbw3609/17/2024ReasonOnset DateCommentsMed Refill 10/03/2024ReasonOnset DateCommentsMed Uodwtc0110/30/2024ReasonCommentsdexa/ controlledReasonCommentscontrolled medications/ labsHyperlipidemiaHypothyroidism Care Teams (unrecognized sec tion and content) Team MemberRelationshipSpecialtyStart DateEnd Date Seven Palmer DO [address], [facility] [place] [address] PCP - GeneralFamily Kibgsgtj08/13/20Team MemberRelationshipSpecialtyStart Date End Date Seven Palmer DO [address] [place] [address] PCP - Generalmily Ahoaymxd10/13/20Team MemberRelationshipSpecialtyStart Date End Date Seven Palmer DO [address], [place] [address] PCP - Generalmily Ppjfzfhi48/13/20Team MemberRelationshipSpecialtyStart Date End Date Seven Palmer DO [address], [place] [address] [facility] Ormfcwjk79/13/20Team MemberRelationshipSpecialtyStart Date End Date Seven Palmer DO [address] [place] [address] PCP - Generalmi Rypgddeh07/13/20Team MemberRelationshipSpecialtyStart Date End Date Seven Palmer DO [address] [place] [address] PCP - Generalmi Lfppuqzc01/13/20Team MemberRelationshipSpecialtyStart Date End Date Seven Palmer DO [address] [place] [address] PCP - Generalmily Gyqgmpnw31/13/20Team MemberRelationshipSpecialtyStart Date End Date Seven Palmer DO [address] [place] [address] PCP - GeneralFamily Ohggfscq54/13/20Team MemberRelationshipSpecialtyStart Date End Date Seven Palmer DO [address], [place] [address] PCP - GeneralFamily Kyeauwnb53/13/20am MemberRelationshipSpecialtyStart Date End Date Seven Palmer DO [address], [place] [address] PCP - Generalmily Kelmafan62/13/20Team MemberRelationshipSpecialtyStart Date End Date Seven Palmer DO [address], [place] [address] PCP - GeneralFamily Pckzgirr85/13/20am MemberRelationshipSpecialtyStart Date End Date Seven Palmer DO [address], [place] [address] PCP - GeneralFamily Rwtosqcl76/13/20Team MemberRelationshipSpecialtyStart Date End Date Seven Palmer DO [address], [place] [address] PCP - GeneralFamily Dismnmue12/13/20Team MemberRelationshipSpecialtyStart Date End Date Seven Palmer DO [address], [place] [address] PCP - GeneralFamily Oavtwwhn01/13/20Team MemberRelationshipSpecialtyStart Date End Date Seven Palmer DO [address], [place] [address] PCP - GeneralFamily Zwdruhdl91/13/20am MemberRelationshipSpecialtyStart Date End Date Seven Palmer DO [address], [place] [address] PCP - Generalmily Lfwoytdh18/13/20am MemberRelationshipSpecialtyStart Date End Date Seven Palmer DO [address], [place] [address] PCP - Generalmily Gsvohjel45/13/20am MemberRelationshipSpecialtyStart Date End Date Seven Palmer DO [address], [place] [address] PCP - GeneralFamily Wakcrlfx70/13/20am MemberRelationshipSpecialtyStart Date End Date Seven Palmer DO [address], [place] [address] PCP - GeneralFamily Ctazmtpx82/13/20Team MemberRelationshipSpecialtyStart Date End Date Seven Palmer DO [address], [place] [address] PCP - GeneralFamily Vhtyedwl95/13/20Team MemberRelationshipSpecialtyStart Date End Date Seven Palmer DO [address], [place] [address] [facility]02/18/20Te MemberRelationshipSpecialtyStart Date End Date Seven Palmer DO [address], [place] [address] [facility]02/18/20Te MemberRelationshipSpecialtyStart Date End Date Seven Palmer DO [address], [place] [address] [facility]02/18/20Te MemberRelationshipSpecialtyStart Date End Date Seven Palmer DO [address] [place] [address] [address] [place] [address] [facility]02/18/20 FOR RECORDS PERTAINING TO PATIENTS WHO ARE [...] BE BASED ON THE PRIMARY CLINICAL RECORDS. [facility] [employer] [facility]. provides no warranty or guarantee of the accuracy or completeness of information in this document.
== END 2025-03-20 15:46 | disposition home or self-care (01) ==
LOC: CARD 15:45
PROVIDERS: PCP Family Medicine; Visit Provider Internal Medicine Interventional Cardiology
DX: I50.41 Acute combined systolic (congestive) and diastolic (congestive) heart failure (principal); I44.2 Atrioventricular block, complete
CPT/HCPCS: 93306; 93356